=== PATIENT | female | born 1930 | race Caucasian/White ===

== ENCOUNTER → 2016-06-01 | Day surgery (SDC) | payer OTHER ==
[2016-05-29 15:11] VITALS: Ht 154.9 cm; Wt 52.3 kg
[~2016-06-01] VITALS: Ht 154.9 cm; Wt 52.3 kg
[~2016-06-01] MED LIST: ACET325T96 PO; ALBUAER2 INH; ASPI-461 PO; ATRINS INH; ATRINS NEB; ATV5 PO; BNC/40 PO; CARB0.25 OPB; CLC100 PO; CRDSR60 PO; DILT-113 PO; DILT120C68 PO; DILT360C23 PO; DLCSR180 PO; ERGO1CAP35 PO; ERGO1CAP41 PO; FERR325T PO; FURO-85 PO; HYDR12.55 PO; IPRA1AER2 INH; LABETALOL HCL IV 5 MG/ML 20ML ONE; LEVO75TA PO; LEVO75TA5 PO; LIDOCAINE HCL 2% 2 ML VIAL (20MG/ML) ONE; MAGNTAB4 PO; MRLP17X PO; MULT-506 PO; NTRSLP4 SL; OXGN; POTA10CA28 PO; PRD20 PO; PRD5 PO; PRED-301 PO; PRED10TA PO; PROPOFOL IV EMULSION 10 MG/ML 20 ML VIAL IV ONE; PRT40 PO; SENNTAB23 PO; SLWMEC PO; SODIUM CHLORIDE 0.9% 500ML 500 ML IV ONE; SPRIN INH; SPRIN/30 INH; SYMIN/8045 INH; SYN50 PO; TRAV0.00 OPB; VNTHFA/IN INH; VTMD PO; XLTOPS OPB; XPNINS INH; XPNINS NEB; XRL15 PO
--- NOTE | 2016-06-01 10:40 | Endo History and Physical ---
History & Physical Date of Service: Jun 01, 2016. Chief Complaint: Diarrhea Referring Physician: Dr. 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 Past Medical History Asthma, Cancer, Hypertension, CVA/TIA Past Surgical History Hx Cardiac Surgery: No Hx Internal Defibrillator: No Hx Pacemaker: No Hx Abdominal Surgery: No Hx of Implantable Prosthesis: No Hx Post-Op Nausea and Vomiting: Yes Hx Cancer Surgery: Yes (MELANOMA REMOVAL X3) Hx Thoracic Surgery: No Hx Orthopedic: No Hx Urinary Tract Surgery: No Family History None Social History Smoking Status: Former Smoker Hx Substance Use: No Hx Alcohol Use: No Allergies Coded Allergies: Clonidine (Verified Allergy, Mild, SHORTNESS OF BREATH, 06/01/16) Iodinated Diagnostic Agents (Verified Allergy, Unknown, "IT JUST AFFECTS ME AND I CAN'T EXPLAIN IT", 06/01/16) Latex1 -Allergic Contact Dermititis (Verified Allergy, Unknown, RASH, 06/01) Penicillins (Verified Allergy, Unknown, UNKNOWN, 06/01/16) Sulfa Antibiotics (Verified Allergy, Unknown, "SWELLING IN MOUTH AND DRIED OUT", 01/03/16) Current Medications Reported Home Medications Medications Dose Route/Sig Max Daily Dose Days Date Category Dose Instructions Combivent Respimat (Ipratropium-Albuterol) 1 Aer Aer 1 Puffs INH QID 05/29/16 Reported Hydrochlorothiazide 12.5 Mg Tab 1 Tab PO HS 05/29/16 Reported Lasix (Furosemide) 20 Mg Tab 20 Mg PO DAILY PRN 05/29/16 Reported Micro-K Ext Rel (Potassium Chloride) 10 Meq Capcr 10 Meq PO DAILY PRN 05/29/16 Reported Oxygen Gas 3-4 Liters NA HS 01/03/16 Reported Refresh Optive Advanced (Carboxymethylcellulose-Glyceri) 1 [place] Mari[place] 1 Drop OPB HS 01/03/16 Reported Xarelto (Rivaroxaban) 15 Mg Tab 15 Mg PO QPM 01/03/16 Reported Symbicort 80/4.5 Inhaler (Budesonide/Formoterol Fumarate) 120 Puffs/ Aero 2 Puffs PO BID 01/03/16 Reported Ventolin Hfa (Albuterol) Aers 2 Puffs INH Q4-6H PRN 12/20/15 Reported Travatan Z (Travoprost) 0.004 % Bassam 1 Drops OPB HS 12/20/15 Reported Slow-Mag Tab (Magnesium Chloride) 64 Mg Tabcr 64 Mg PO QAM 12/20/15 Reported Multivitamin (Multivitamins) Tab 1 Tab PO QAM 12/20/15 Reported Vitamin D Cap (Ergocalciferol) 50,000 Interunit Cap 50,000 Inter.unit PO WK 12/20/15 Reported WEDNESDAYS Tiazac (Diltiazem HCl) 120 Mg Capcr 120 Mg PO LUNCH 12/20/15 Reported Synthroid (Levothyroxine Sodium) 75 Mcg Tab 75 Mcg PO QAM 01/26/15 Reported Benicar (Olmesartan Medoxomil) 40 Mg Tab 40 Mg PO QPM 05/27/12 Reported Vital Signs Weight (Kilograms): 52.27 Height (Feet): 5 Height (Inches): 1 Physical Exam General Appearance: WD/WN, no apparent distress Respiratory/Chest: Auscultation: breath sounds normal, no wheezing Abdomen: Bowel Sounds: normal Inspection & Palpation: soft, no tenderness, guarding & rebound Assessment and Plan Cleared for colonoscopy.
--- NOTE | 2016-06-01 11:47 | GI REPORT ---
Procedure Date: 06/01/2016 10:39 AM Procedure: Colonoscopy Indications: Chronic diarrhea Medicines: Propofol per Anesthesia Complications: No immediate complications. Estimated blood loss: None. Estimated Blood Loss: Estimated blood loss: none. Procedure: Pre-Anesthesia Assessment: - Prior to the procedure, a History and Physical was performed, and patient medications, allergies and sensitivities were reviewed. The patient's tolerance of previous anesthesia was reviewed. - ASA Grade Assessment: IV - A patient with severe systemic disease that is a constant threat to life. After I obtained informed consent, the scope was passed under direct vision. Throughout the procedure, the patient's blood pressure, pulse, and oxygen saturations were monitored continuously. The scope was introduced through the anus and advanced to the terminal ileum, with identification of the appendiceal orifice and IC valve. The colonoscopy was performed with ease. The patient tolerated the procedure well. The quality of the bowel preparation was excellent. The bowel preparation used was split dose MIralax. Findings: Multiple medium-mouthed diverticula were found in the sigmoid colon. Normal mucosa was found in the entire colon. Biopsies for histology were taken with a cold forceps from the entire colon for evaluation of microscopic colitis. Fluid aspiration was performed through the scope suction channel. The amount of fluid collected was 10 mL. Sample(s) were sent for bacterial cultures, Clostridium difficile and ova and parasites. The terminal ileum appeared normal. Impression: - Diverticulosis in the sigmoid colon. - Normal mucosa in the entire examined colon. Biopsied. Fluid aspiration performed. - The examined portion of the ileum was normal. Recommendation: - Await pathology results. - Discharge patient to home (with escort). Terence Browning M.D. Terence Browning MD 06/01/2016 11:46:05 AM This report has been signed electronically. Note Initiated On: 06/01/2016 10:39 AM
--- NOTE | 2016-06-01 11:53 | Discharge Instructions ---
Endoscopy Patient Instructions Date / Procedure(s) Performed Jun 01, 2016. Colonoscopy Allergy Information Coded Allergies: Clonidine (Verified Allergy, Mild, SHORTNESS OF BREATH, 06/01/16) Iodinated Diagnostic Agents (Verified Allergy, Unknown, "IT JUST AFFECTS ME AND I CAN'T EXPLAIN IT", 06/01/16) Latex1 -Allergic Contact Dermititis (Verified Allergy, Unknown, RASH, 06/01) Penicillins (Verified Allergy, Unknown, UNKNOWN, 06/01/16) Sulfa Antibiotics (Verified Allergy, Unknown, "SWELLING IN MOUTH AND DRIED OUT", 01/03/16) Discharge Date / Findings Jun 01, 2016. Diverticulosis. Random biopsies and cultures obtained Medication Instructions Stopped Medication(s): XARELTO LAST TAKEN 1 WEEK AGO 05/25/16 Restart Stopped Medication(s): Restart Xaralto and all medications. Provider Instructions Activity Restrictions - No exercising or heavy lifting for 24 hours. - Do not drink alcohol the day of the procedure. - Do not drive a car or operate machinery until the day after the procedure. - Do not make any important decisions or sign important papers in 24 hours after the procedure. Following Day: - Return to full activity which may include returning to work/school. Diet Start your diet with liquids and light foods (jello, soup, juice, toast). Then eat your usual diet if not nauseated. Treatment For Common After Affects For mild abdominal pain, bloating, or excessive gas: - Rest - Eat lightly - Lie on right side Follow-Up Information Follow-up with DR. TEE as scheduled Anesthesia Information What You Should Know You have had a procedure that required some medicine to reduce anxiety and discomfort. This treatment is called moderate sedation. After receiving the treatment, you may be sleepy, but you will be able to breathe on your own. The effects of the treatment may last for several hours. Follow these instructions along with Activity/Diet recommendations noted above: * Do NOT do anything where dizziness or clumsiness would be dangerous. * Rest quietly at home today, then you can be up and about tomorrow. * Have a responsible person stay with you the rest of today. * You may have had an I.V. today. If so, you may take the dressing off later today. Recommendations Call your doctor if: * Trouble breathing * Continuous vomiting for more than 24 hours * Temperature above 101 degrees * Severe abdominal pain or bloating * Pain not relieved by pain medicine ordered * There is increased drainage or redness from any incision * A large amount of rectal bleeding greater than 2-3 tablespoons. (If you had a polyp/s removed or have hemorrhoids, a small amount of blood - from the rectum is to be expected.) * You have any unanswered questions or concerns. IN THE EVENT OF A SERIOUS EMERGENCY, GO TO THE NEAREST EMERGENCY ROOM Your discharge instructions were prepared by provider Terence Browning. Patient Instructions Signature Page Anisa Lane Patient (or Guardian) Signature/Date: I have read and understand the instructions given to me by my caregivers. Caregiver/RN/Doctor Signature/Date: The above-named patient and/or guardian has received patient instructions on this date. + Original Patient Signature Page (only) stays with chart. Please make copy for patient.
[2016-06-01 12:34] VITALS: BP 167/86; PULSE 54; O2SAT 94
--- NOTE | 2016-06-01 13:39 | Anesthesiology Progress Note ---
Anesthesia Post Op Note Date & Time Jun 01, 2016 at 13:38 Vital Signs Pain Intensity: 0 Vital Signs Past 12 Hours Date Time Temp Pulse Resp B/P Pulse Ox O2 Delivery O2 Flow Rate FiO2 06/01/16 12:34 54 20 167/86 94 Room Air 06/01/16 12:34 54 20 167/86 64 Room Air 06/01/16 11:59 54 22 183/90 98 Room Air 06/01/16 11:44 59 20 196/74 96 Room Air 06/01/16 11:29 72 20 146/78 100 Nasal Cannula 2 06/01/16 10:48 36.2 67 22 143/57 95 Room Air 0 Notes Mental Status: alert / awake / arousable, participated in evaluation Pt Amnestic to Procedure: Yes Nausea / Vomiting: adequately controlled Pain: adequately controlled Airway Patency, RR, SpO2: stable & adequate BP & HR: stable & adequate Hydration State: stable & adequate Anesthetic Complications: no major complications apparent
[2016-06-03 00:13] LABS: CRYPTOSPORIDIUM AG TC 37213 NOT DETECTED (NOT DETECTED); O&P GIARDIA AG NOT DETECTED (NOT DETECTED)
== END | disposition home or self-care (01) ==
LOC: C.GI 10:13
PROVIDERS: ATTEND Internal Medicine Gastroenterology
DX: R19.7 Diarrhea, unspecified (principal); K57.30 Diverticulosis of large intestine without perforation or abscess without bleeding; J45.909 Unspecified asthma, uncomplicated; I10 Essential (primary) hypertension; Z86.73 Personal history of transient ischemic attack (TIA), and cerebral infarction without residual deficits; Z87.891 Personal history of nicotine dependence; Z98.890 Other specified postprocedural states; Z91.041 Radiographic dye allergy status; Z88.0 Allergy status to penicillin; Z88.2 Allergy status to sulfonamides

== ENCOUNTER → 2016-07-05 | Day surgery (SDC) | payer OTHER ==
[2016-07-04 11:06] VITALS: Ht 154.9 cm; Wt 52.3 kg
[~2016-07-05] VITALS: Ht 154.9 cm; Wt 52.3 kg
[~2016-07-05] MED LIST changes: -ALBUAER2 INH; -LABETALOL HCL IV 5 MG/ML 20ML ONE
--- NOTE | 2016-07-05 12:32 | Endo History and Physical ---
History & Physical Date of Service: Jul 05, 2016. Chief Complaint: abdominal pain Referring Physician: Dr. Gauthier History of Present Illness Abdominal pain and diarrhea Past Medical History Asthma, Cancer, Hypertension, CVA/TIA Past Surgical History Hx Cardiac Surgery: No Hx Internal Defibrillator: No Hx Pacemaker: No Hx Abdominal Surgery: No Hx of Implantable Prosthesis: No Hx Post-Op Nausea and Vomiting: Yes Hx Cancer Surgery: Yes (MELANOMA REMOVAL X3) Hx Thoracic Surgery: No Hx Orthopedic: No Hx Urinary Tract Surgery: No Family History None Social History Smoking Status: Former Smoker Hx Substance Use: No Hx Alcohol Use: No Allergies Coded Allergies: Clonidine (Verified Allergy, Mild, SHORTNESS OF BREATH, 07/04/16) Iodinated Diagnostic Agents (Verified Allergy, Unknown, "IT JUST AFFECTS ME AND I CAN'T EXPLAIN IT", 07/04/16) Latex1 -Allergic Contact Dermititis (Verified Allergy, Unknown, RASH, 07/04) Penicillins (Verified Allergy, Unknown, UNKNOWN, 07/04/16) Sulfa Antibiotics (Verified Allergy, Unknown, "SWELLING IN MOUTH AND DRIED OUT", 07/04/16) Current Medications Reported Home Medications Medications Dose Route/Sig Max Daily Dose Days Date Category Dose Instructions Combivent Respimat (Ipratropium-Albuterol) 1 Aer Aer 1 Puffs INH QID 05/29/16 Reported Lasix (Furosemide) 20 Mg Tab 20 Mg PO DAILY PRN 05/29/16 Reported Micro-K Ext Rel (Potassium Chloride) 10 Meq Capcr 10 Meq PO DAILY PRN 05/29/16 Reported Oxygen Gas 3-4 Liters NA HS 01/03/16 Reported Refresh Optive Advanced (Carboxymethylcellulose-Glyceri) 1 [place] Mari[place] 1 Drop OPB HS 01/03/16 Reported Xarelto (Rivaroxaban) 15 Mg Tab 15 Mg PO QPM 01/03/16 Reported Symbicort 80/4.5 Inhaler (Budesonide/Formoterol Fumarate) 120 Puffs/ Aero 2 Puffs PO BID 01/03/16 Reported Travatan Z (Travoprost) 0.004 % Bassam 1 Drops OPB HS 12/20/15 Reported Slow-Mag Tab (Magnesium Chloride) 64 Mg Tabcr 64 Mg PO QAM 12/20/15 Reported Multivitamin (Multivitamins) Tab 1 Tab PO QAM 12/20/15 Reported Vitamin D Cap (Ergocalciferol) 50,000 Interunit Cap 50,000 Inter.unit PO WK 12/20/15 Reported WEDNESDAYS Tiazac (Diltiazem HCl) 120 Mg Capcr 120 Mg PO LUNCH 12/20/15 Reported Synthroid (Levothyroxine Sodium) 75 Mcg Tab 75 Mcg PO QAM 01/26/15 Reported Benicar (Olmesartan Medoxomil) 40 Mg Tab 40 Mg PO QPM 05/27/12 Reported Vital Signs Weight (Kilograms): 52.27 Height (Feet): 5 Height (Inches): 1 Date Time Temp Pulse Resp B/P Pulse Ox O2 Delivery O2 Flow Rate FiO2 07/05/16 12:05 36.5 70 22 175/65 96 Room Air Physical Exam General Appearance: WD/WN, no apparent distress Respiratory/Chest: Auscultation: breath sounds normal, no rales/crackles Cardiovascular: Heart Auscultation: RRR, no murmurs Abdomen: Inspection & Palpation: soft, no tenderness, guarding & rebound Assessment and Plan EGD with duodenal biopsy today.
--- NOTE | 2016-07-05 12:56 | GI REPORT ---
Procedure Date: 07/05/2016 12:15 PM Procedure: Upper GI endoscopy Indications: Abdominal pain, Diarrhea Medicines: Monitored Anesthesia Care Complications: No immediate complications. Estimated blood loss: None. Estimated Blood Loss: Estimated blood loss: none. Procedure: Pre-Anesthesia Assessment: - Prior to the procedure, a History and Physical was performed, and patient medications, allergies and sensitivities were reviewed. The patient's tolerance of previous anesthesia was reviewed. - ASA Grade Assessment: III - A patient with severe systemic disease. After obtaining informed consent, the endoscope was passed under direct vision. Throughout the procedure, the patient's blood pressure, pulse, and oxygen saturations were monitored continuously. The scope was introduced through the mouth, and advanced to the third part of the duodenum. Small bowel enteroscopy was deemed necessary. The upper GI endoscopy was accomplished with ease. The patient tolerated the procedure well. Findings: The upper third of the esophagus, middle third of the esophagus and lower third of the esophagus were normal. The Z-line was regular. Biopsies were taken with a cold forceps for histology. Patchy minimal inflammation characterized by adherent blood and erythema was found in the entire examined stomach. Biopsies were taken with a cold forceps for Helicobacter pylori testing. The examined duodenum was normal. Biopsies for histology were taken with a cold forceps for evaluation of celiac disease. Verification of patient identification for the specimens was done by the physician and nurse using the patient's name, date and medical record number. Impression: - Normal upper third of esophagus, middle third of esophagus and lower third of esophagus. - Z-line regular. Biopsied. - Gastritis. Biopsied. - Normal examined duodenum. Biopsied. Recommendation: - Await pathology results. - Discharge patient to home (with escort). Terence Browning M.D. Terence Browning MD 07/05/2016 12:56:13 PM This report has been signed electronically. Note Initiated On: 07/05/2016 12:15 PM I attest to the content of the Intraoperative Record and orders documented therein, exceptions below
--- NOTE | 2016-07-05 12:59 | Discharge Instructions ---
Endoscopy Patient Instructions Date / Procedure(s) Performed Jul 05, 2016. EGD Allergy Information Coded Allergies: Clonidine (Verified Allergy, Mild, SHORTNESS OF BREATH, 07/04/16) Iodinated Diagnostic Agents (Verified Allergy, Unknown, "IT JUST AFFECTS ME AND I CAN'T EXPLAIN IT", 07/04/16) Latex1 -Allergic Contact Dermititis (Verified Allergy, Unknown, RASH, 07/04) Penicillins (Verified Allergy, Unknown, UNKNOWN, 07/04/16) Sulfa Antibiotics (Verified Allergy, Unknown, "SWELLING IN MOUTH AND DRIED OUT", 07/04/16) Discharge Date / Findings Jul 05, 2016. Gastritis Medication Instructions Stopped Medication(s): stopped Xarelto on Sunday Restart Stopped Medication(s): Restart all medications today. Provider Instructions Activity Restrictions - No exercising or heavy lifting for 24 hours. - Do not drink alcohol the day of the procedure. - Do not drive a car or operate machinery until the day after the procedure. - Do not make any important decisions or sign important papers in 24 hours after the procedure. Following Day: - Return to full activity which may include returning to work/school. Diet Start your diet with liquids and light foods (jello, soup, juice, toast). Then eat your usual diet if not nauseated. Treatment For Common After Affects For mild abdominal pain, bloating, or excessive gas: - Rest - Eat lightly - Lie on right side Follow-Up Information Follow-up with Dr. Gauthier as scheduled Await pathology results. Anesthesia Information What You Should Know You have had a procedure that required some medicine to reduce anxiety and discomfort. This treatment is called moderate sedation. After receiving the treatment, you may be sleepy, but you will be able to breathe on your own. The effects of the treatment may last for several hours. Follow these instructions along with Activity/Diet recommendations noted above: * Do NOT do anything where dizziness or clumsiness would be dangerous. * Rest quietly at home today, then you can be up and about tomorrow. * Have a responsible person stay with you the rest of today. * You may have had an I.V. today. If so, you may take the dressing off later today. Recommendations Call your doctor if: * Trouble breathing * Continuous vomiting for more than 24 hours * Temperature above 101 degrees * Severe abdominal pain or bloating * Pain not relieved by pain medicine ordered * There is increased drainage or redness from any incision * A large amount of rectal bleeding greater than 2-3 tablespoons. (If you had a polyp/s removed or have hemorrhoids, a small amount of blood - from the rectum is to be expected.) * You have any unanswered questions or concerns. IN THE EVENT OF A SERIOUS EMERGENCY, GO TO THE NEAREST EMERGENCY ROOM Your discharge instructions were prepared by provider Terence Browning. Patient Instructions Signature Page Anisa Lane Patient (or Guardian) Signature/Date: I have read and understand the instructions given to me by my caregivers. Caregiver/RN/Doctor Signature/Date: The above-named patient and/or guardian has received patient instructions on this date. + Original Patient Signature Page (only) stays with chart. Please make copy for patient.
[2016-07-05 13:28] VITALS: BP 163/74; PULSE 76; O2SAT 94
--- NOTE | 2016-07-05 13:58 | Anesthesiology Progress Note ---
Anesthesia Post Op Note Date & Time Jul 05, 2016 at 13:57 Vital Signs Pain Intensity: 0 Vital Signs Past 12 Hours Date Time Temp Pulse Resp B/P Pulse Ox O2 Delivery O2 Flow Rate FiO2 07/05/16 13:28 76 20 163/74 94 Room Air 07/05/16 13:13 74 20 174/69 94 Room Air 07/05/16 12:58 75 20 166/51 95 Room Air 07/05/16 12:05 36.5 70 22 175/65 96 Room Air Notes Mental Status: alert / awake / arousable, participated in evaluation Pt Amnestic to Procedure: Yes Nausea / Vomiting: adequately controlled Pain: adequately controlled Airway Patency, RR, SpO2: stable & adequate BP & HR: stable & adequate Hydration State: stable & adequate Anesthetic Complications: no major complications apparent
== END | disposition home or self-care (01) ==
LOC: C.GI 11:36
PROVIDERS: ATTEND Internal Medicine Gastroenterology
DX: R19.7 Diarrhea, unspecified (principal); K29.70 Gastritis, unspecified, without bleeding; K29.80 Duodenitis without bleeding; K20.9 Esophagitis, unspecified; I10 Essential (primary) hypertension; J45.909 Unspecified asthma, uncomplicated; Z86.73 Personal history of transient ischemic attack (TIA), and cerebral infarction without residual deficits; Z88.0 Allergy status to penicillin; Z88.2 Allergy status to sulfonamides; Z91.041 Radiographic dye allergy status

== ENCOUNTER 2016-09-07 14:28 | Inpatient (IN) | payer OTHER ==
[~2016-09-07] VITALS: Ht 154.9 cm; Wt 53.2 kg
[~2016-09-07 14:28] MED LIST changes: -ACET325T96 PO; -ALPR0.25 PO; -APIX1TAB PO; -ASPI-461 PO; -ATRINS INH; -ATRINS NEB; -ATV5 PO; -CLC100 PO; -CRDSR60 PO; -DILT-113 PO; -DILT360C23 PO; -DLCSR180 PO; -DXY100 PO; -ERGO500011 PO; -FERR1TAB62 PO; -FLUT1INH PO; -FRS/40 PO; -GFNSR600 PO; -HYDR12.55 PO; -LEVO1TAB35 PO; -LEVO75TA5 PO; -LNX125 PO; -LPR25 PO; -MCRK20 PO; -MRLP17X PO; -MULT1CAP16 PO; -NTRSLP4 SL; -POTA10PO PO; -PRD20 PO; -PRD5 PO; -PRED-301 PO; -PRED10TA PO; -PRED20TA PO; -PRT40 PO; -SENNTAB23 PO; -SLWMEC PO; -SPRIN INH; -SPRIN/30 INH; -SUCR1TAB29 PO; -SYMIN/8045 INH; -SYN50 PO; -TRAV0.00 OP; -VNTHFA/IN INH; -VTMD PO; -XLTOPS OPB; -XPNINS INH; -XPNINS NEB; -XRL15 PO
[2016-09-07] MEDS ORDERED: ONDANSETRON INJ 2 MG/ML 2 ML VIAL IV PRN (15:15)
[2016-09-07] MEDS ORDERED: ACETAMINOPHEN 325 MG TAB PO PRN (15:15)
[2016-09-07] MEDS ORDERED: LEVOFLOXACIN / D5W 750 MG in PREMIXED IN D5W 150 ML IV SCH (15:30)
[2016-09-07] MEDS ORDERED: LEVALBUTEROL/IPRATROPIUM NEB INH PRN (15:30)
[2016-09-07 15:50] VITALS: BP 146/94; PULSE 120; TEMP 36.6; O2SAT 90
[2016-09-07 16:00] VITALS: O2SAT 95
[2016-09-07 16:07] VITALS: Ht 154.9 cm; Wt 53.2 kg
[2016-09-07] MEDS ORDERED: IPRATROPIUM BROMIDE NEB SOLN 0.02% 2.5 ML VIAL INH PRN (16:45)
[2016-09-07] MEDS ORDERED: LEVOFLOXACIN / D5W 750 MG in PREMIXED IN D5W 150 ML IV ONE (17:00)
[2016-09-07 17:12] VITALS: O2SAT 95
[2016-09-07] MEDS ORDERED: LEVOFLOXACIN 750 MG TAB PO ONE (18:30)
[2016-09-07] MEDS ORDERED: DILTIAZEM HCL 120 MG ER CAP PO ONE (18:30)
[2016-09-07] MEDS ORDERED: DILTIAZEM HCL 60 MG TAB PO ONE (18:30)
[2016-09-07 18:40] VITALS: PULSE 125; O2SAT 99
[2016-09-07] MEDS: LEVALBUTEROL 0.63MG/3 ML NEB INH PRN (18:40)
[2016-09-07 19:05] LABS: BASO % 0.3 %; BASO ABS # 0.02 K/uL (0-0.2); COMPLETE YES; EOS % 1.3 %; IG% 0.1 %; LYMPH % 7.6 %; LYMPH ABS # 0.59 K/uL (1.2-3.4); MEAN CELL VOLUME 90.9 fL (80-100); MEAN CORPUSCULAR HEMOGLOBIN 31.6 pg (25-34); MEAN CORPUSCULAR HGB CONC 34.7 g/dl (32-36); MONO % 4.3 %; NEUT % 86.4 %; PLATELET COUNT 233 K/uL (130-400); RED BLOOD COUNT 3.96 M/uL (4.2-5.4); WHITE BLOOD COUNT 7.72 K/uL (4.8-10.8)
[2016-09-07 19:12] LABS: INR 1.1 (0.9-1.1); PARTIAL THROMBOPLASTIN RATIO 1.3
[2016-09-07 19:25] LABS: BUN/CREATININE RATIO 15.7 (10-20); CALCIUM 8.9 mg/dl (8.5-10.1); CREATININE 0.73 mg/dl (0.60-1.20); POTASSIUM 3.9 mmol/L (3.5-5.1)
[2016-09-07 19:27] LABS: ALB/GLOB RATIO 1.2 (0.9-2)
[2016-09-07 20:00] VITALS: O2SAT 94
[2016-09-07 20:27] VITALS: BP 145/84; PULSE 99; TEMP 36.8; O2SAT 95
--- NOTE | 2016-09-07 20:34 | History and Physical ---
History & Physical Date & Time of Service: Sep 07, 2016 at 20:24 Chief Complaint: Copd Exacerbation, Pneumonia Primary Care Physician: RV. Trevizo MD History of Present Illness Source: patient, clinic records 86 yo female with history of COPD and atrial fibrillation, more recently dealing with RVR and her Cardizem dose was increased to 120mg daily. Presented to Dr. Rucker's office today with complaints of increased shortness of breath. Her HR was in the 120-130's and a CXR showed a left lower lobe infiltrate. She was advised to come in for direct admission. Even though she had evidence of infiltrate, she did not have any fever/chills. She did admit to some coughing that is chronic, occasional sputum production. Appetite intact. No wheezing that she has noticed. She kept asking why she had to stay in the hospital, wanted to go home. Explained several times that her HR was in the 130's and needed her medications adjusted by cardiology. Also, she was requiring oxygen and normally not on oxygen. Past Medical/Surgical History Medical Problems: (1) Asthma Status: Chronic (2) Back pain Status: Resolved (3) Back pain Status: Resolved (4) Benign hypertension Status: Chronic (5) Bronchitis Status: Resolved (6) Cataract Status: Chronic (7) Dehydration Status: Resolved (8) Disorder of gallbladder Status: Chronic (9) Fall Status: Resolved (10) Humeral head fracture Status: Resolved (11) Kidney disease Status: Chronic (12) melanoma Status: Resolved (13) Neck pain Status: Resolved (14) Pneumonia Status: Resolved (15) Recurrent falls Status: Resolved (16) Right humeral fracture Status: Resolved Family History Heart disease Hypertension Social History Smoking Status: Former Smoker Drug Use: none Marital Status: Housing status: lives alone Occupational Status: retired Immunizations History of Influenza Vaccine: No History of Tetanus Vaccine?: utd History of Hepatitis B Vaccine: No Allergies Coded Allergies: Clonidine (Verified Allergy, Mild, SHORTNESS OF BREATH, 07/04/16) Iodinated Diagnostic Agents (Verified Allergy, Unknown, "IT JUST AFFECTS ME AND I CAN'T EXPLAIN IT", 07/04/16) Latex1 -Allergic Contact Dermititis (Verified Allergy, Unknown, RASH, 07/04) Penicillins (Verified Allergy, Unknown, UNKNOWN, 07/04/16) Sulfa Antibiotics (Verified Allergy, Unknown, "SWELLING IN MOUTH AND DRIED OUT", 07/04/16) Home Medications Scheduled Budesonide/Formoterol Fumarate (Symbicort 80/4.5 Inhaler), 2 PUFFS PO BID Carboxymethylcellulose-Glyceri (Refresh Optive Advanced), 1 DROP OPB HS Diltiazem Hcl Ext Rel (Tiazac), 120 MG PO LUNCH Ergocalciferol (Vitamin D Cap), 50,000 INTER.UNIT PO WK Hydrochlorothiazide (Hydrochlorothiazide), 1 TAB PO HS Ipratropium-Albuterol (Combivent Respimat), 1 PUFFS INH QID Levothyroxine Sodium (Synthroid), 75 MCG PO QAM Magnesium Chloride (Slow-Mag Tab), 64 MG PO QAM Multivitamin (Multivitamin), 1 TAB PO QAM Olmesartan Medoxomil (Benicar), 40 MG PO QPM Oxygen (Oxygen), 3-4 LITERS NA HS Rivaroxaban (Xarelto), 15 MG PO QPM Travoprost (Travatan Z), 1 DROPS OPB HS Scheduled PRN Furosemide (Lasix), 20 MG PO DAILY PRN for WEIGHT GAIN Potassium Chloride (Micro-K Ext Rel), 10 MEQ PO DAILY PRN for WITH LASIX Review of Systems Constitutional: No chills, No fatigue, No fever, No problem reported, No sweats , No weakness, No weight loss Eyes: No diplopia, No discharge, No eye pain, No problem reported, No redness, No worsening of vision ENT: No dental problems, No hearing loss, No nasal symptoms, No problem reported, No sore throat, No tinnitus, No trouble swallowing, No unusual epistaxis Respiratory: + cough, + dyspnea on exertion, + sputum, + wheezing, No dyspnea at rest, No hemoptysis, No shortness of breath Cardiovascular: + palpitations, No PND, No chest pain, No claudication, No edema, No orthopnea Abdomen: No GI bleeding, No constipation, No diarrhea, No nausea, No pain, No problem reported, No vomiting Musculoskeletal: No calf pain, No joint pain, No muscle pain, No problem reported, No swelling Genitourinary - Female: No dysuria, No urinary frequency, No urinary incontinence, No urinary urgency Neurologic: + weakness, No balance problems, No memory loss, No numbness/ tingling, No paralysis, No problem reported, No vertigo Psychiatric: No anhedonism, No anxiety, No depression symptoms, No insomnia, No problem reported, No substance abuse Endocrine: No excessive thirst, No excessive urination, No fatigue, No problem reported Hematologic / Lymphatic: No abnormal bleeding/bruising, No clotting problems, No night sweats, No problem reported, No swollen lymph nodes Integumentary: No bleeding, No color change, No itch, No new/changing skin lesions, No problem reported, No rash Allergic / Immunologic: No environmental allergies, No food allergies, No frequent infections, No hives, No pet sensitivities, No poor healing, No problem reported, No prolonged convalescence, No seasonal allergies Physical Exam Vital Signs Date Time Temp Pulse Resp B/P Pulse Ox O2 Delivery O2 Flow Rate FiO2 09/07/16 18:40 125 24 99 Diffusion Mask 10.0 09/07/16 17:12 95 Nasal Cannula 4.0 09/07/16 16:00 95 Nasal Cannula 4.0 09/07/16 15:50 36.6 120 20 146/94 90 Room Air General Appearance: no apparent distress, + thin Head: normocephalic, atraumatic Eyes: normal inspection, PERRL, EOMI, sclerae normal ENT: normal ENT inspection, hearing grossly normal, pharynx normal Neck: supple, no adenopathy, no JVD, trachea midline Respiratory/Chest: chest non-tender, no respiratory distress, no accessory muscle use, + crackles (left base), + rhonchi (no wheezing) Cardiovascular: no edema, no gallop, no JVD, normal peripheral pulses, + tachycardia, + systolic murmur, + irregularly irregular Abdomen/GI: normal bowel sounds, non tender, soft, no organomegaly Back: normal inspection, no CVA tenderness, no muscle spasm, normal range of motion Extremities/Musculoskelatal: normal inspection, no calf tenderness, normal capillary refill, no pedal edema, normal range of motion 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, no motor/sensory deficits, alert, normal mood/affect, normal reflexes, oriented x 3 Skin: normal color, warm/dry, no rash Lymphatic: no adenopathy Diagnostics Laboratory Results Results Past 24 Hours Test 09/07/16 18:55 Range/Units White Blood Count 7.72 4.8-10.8 K/uL Red Blood Count 3.96 4.2-5.4 M/uL Hemoglobin 12.5 12.0-16.0 g/dL Hematocrit 36.0 37-47 % Mean Corpuscular Volume 90.9 80-100 fL Mean Corpuscular Hemoglobin 31.6 25-34 pg Mean Corpuscular Hemoglobin Concent 34.7 32-36 g/dl Platelet Count 233 130-400 K/uL Mean Platelet Volume 10.0 7.4-10.4 fL Neutrophils (%) (Auto) 86.4 % Lymphocytes (%) (Auto) 7.6 % Monocytes (%) (Auto) 4.3 % Eosinophils (%) (Auto) 1.3 % Basophils (%) (Auto) 0.3 % Neutrophils # (Auto) 6.67 1.4-6.5 K/uL Lymphocytes # (Auto) 0.59 1.2-3.4 K/uL Monocytes # (Auto) 0.33 0.11-0.59 K/uL Eosinophils # (Auto) 0.10 0-0.5 K/uL Basophils # (Auto) 0.02 0-0.2 K/uL RDW Standard Deviation 41.8 36.4-46.3 fL RDW Coefficient of Variation 12.5 11.5-14.5 % Immature Granulocyte % (Auto) 0.1 % Immature Granulocyte # (Auto) 0.01 0.00-0.02 K/uL Prothrombin Time 12.0 9.0-12.0 SECONDS Prothromb Time International Ratio 1.1 0.9-1.1 Activated Partial Thromboplast Time 32.9 21.0-31.0 SECONDS Partial Thromboplastin Ratio 1.3 Sodium Level 136 136-145 mmol/L Potassium Level 3.9 3.5-5.1 mmol/L Chloride Level 101 98-107 mmol/L Carbon Dioxide Level 27 21-32 mmol/L Anion Gap 8.0 3-11 mmol/L Blood Urea Nitrogen 11 7-18 mg/dl Creatinine 0.73 0.60-1.20 mg/dl Est Creatinine Clear Calc Drug Dose 42.5 ml/min Estimated GFR () 87.0 Estimated GFR (Non- 75.1 BUN/Creatinine Ratio 15.7 10-20 Random Glucose 136 70-99 mg/dl Calcium Level 8.9 8.5-10.1 mg/dl Total Bilirubin 0.9 0.2-1 mg/dl Direct Bilirubin 0.3 0-0.2 mg/dl Aspartate Amino Transf (AST/SGOT) 18 15-37 U/L Alanine Aminotransferase (ALT/SGPT) 26 12-78 U/L Alkaline Phosphatase 66 45-117 U/L Total Protein 7.3 6.4-8.2 gm/dl Albumin 4.0 3.4-5.0 gm/dl Globulin 3.3 2.5-4.0 gm/dl Albumin/Globulin Ratio 1.2 0.9-2 Diagnostic Radiology CHEST 2 VIEWS ROUTINE CLINICAL HISTORY: J44.9 Chronic obstructive pulmonary disease COPD COMPARISON STUDY: 01/03/2016 FINDINGS: Poorly defined parenchymal infiltrate left base. Emphysematous change. Pulmonary vascular congestion. No evidence for cardiac enlargement. IMPRESSION: Parenchymal infiltrate left base. Emphysematous change. Pulmonary vascular congestion. EKG afib with RVR Impression Assessment and Plan 86 yo female with known COPD, now with mild COPD exacerbation, pneumonia, atrial fibrillation with RVR and hypoxia - Acute hypoxic respiratory failure: combination of pneumonia and COPD, look for improvement with therapy - COPD exacerbation: Prednisone, Levalbuterol nebulizers, Levaquin - Left lower lobe infiltrate, possible pneumonia: Levaquin, afebrile, WBC normal , would only treat 5 days - Atrial fibrillation with RVR: continue Diltiazem 120mg but may need to increase to 180mg consult cardiology to see tomorrow, anticoagulated on Xarelto - Severe aortic stenosis: consult cardiology, she say she went and had a second opinion, was told she had a year to live Level of Care Telemetry Advanced Directives Existing Living Will: No Existing Power of [employer] Worker: No Resuscitation Status FULL RESUSCITATION VTE Prophylaxis VTE Risk Assessment Done? Y/N: Yes Risk Level: High Given or contraindicated: Other Anticoagulation (Xarelto)
[2016-09-07] MEDS: OLMESARTAN MEDOXOMIL 40 MG TAB PO SCH (20:41)
[2016-09-07] MEDS: RIVAROXABAN TAB 15 MG TAB PO SCH (20:45)
[2016-09-07] MEDS: BUDESONIDE/FORMOTEROL FUMARATE 80/4.5 60 PUFFS/INHALER INH SCH (20:50)
[2016-09-08] VITALS (10 sets, daily range): BP systolic 118–148; BP diastolic 47–94; PULSE 72–92; TEMP 36.3–36.7; O2SAT 95–99
[2016-09-08] MEDS: DILTIAZEM HCL 30 MG TAB PO SCH ×4 (00:31→22:10)
--- NOTE | 2016-09-08 03:55 | CARDIOLOGY CONSULTATION ---
DATE OF CONSULTATION: 09/07/2016 PRIMARY PHYSICIAN: Joey Gauthier MD ATTENDING AND REFERRING PHYSICIAN: Giovanni Mckinnon DO CONSULTATION: Ramu Mack MD HISTORY OF PRESENT ILLNESS: The patient is an 86-year-old white female with history of severe aortic stenosis, persistent atrial fibrillation, hypertension, COPD, and hyperthyroidism. She is followed in cardiology clinic by Dr. Oliverio Mason. She is followed in pulmonary clinic by Dr. Lee Rucker. The patient was recently seen in cardiology clinic on 09/04/2016 with complaints of increased dyspnea on exertion and dyspnea at rest for a few days. An electrocardiogram performed at time of that office visit revealed a ventricular rate of 128 beats per minute with atrial fibrillation. She is normally on diltiazem extended release 120 mg daily. The dose was increased to 120 mg b.i.d. Despite the dose increase she persists with dyspnea. She was seen in pulmonary clinic today by Dr. Rucker who diagnosed her with left lower lobe pneumonia. Chest x-ray performed today does reveal parenchymal infiltrate in the left base. No evidence of heart failure on the chest x-ray. There are changes consistent with emphysema. Because of her pneumonia and atrial fibrillation with rapid ventricular response she has been admitted to the telemetry unit. The patient states that her last dose of diltiazem was last evening. She has received no diltiazem thus far today. She has refused placement of an intravenous catheter thus far on this admission. She denies any palpitations. Chronic postural lightheadedness when she alia over. No syncope. She denies any anginal type chest discomfort. She does complain of an aching left parasternal chest pain. This can be precipitated by palpation of her chest. Her appetite has been decreased over the past few days. No fevers or chills. She does have a cough. She states it is nonproductive. She denies any wheezing. Because of her dyspnea over the past few days she has been using her inhalers approximately every 3 hours. She has had no definite orthopnea or PND. No peripheral edema. She is on chronic anticoagulation with Xarelto. She denies any symptoms of bleeding. Her appetite has been decreased over the past few days. No abdominal pain or nausea. No urinary complaints. No cerebrovascular or peripheral vascular complaints suggestive of a thromboembolic event. No symptoms suggestive of CVA or TIA. She complains of severe cramps in her calves and feet on a nightly basis. She states this has been occurring over the past several months. She attributes it to medications that she received on a 08/01/2015 admission. At that time she was admitted for increased dyspnea on exertion, felt to be secondary to exacerbation of her COPD as well as her severe aortic stenosis. She was also admitted in December 2015 at [facility] for increased dyspnea. Her discharge diagnosis was acute on chronic diastolic heart failure in the presence of severe aortic stenosis and COPD. PAST MEDICAL HISTORY: 1. Severe aortic stenosis. Echocardiogram on 08/02/2015 with moderate left ventricular hypertrophy, hyperdynamic LV systolic function with ejection fraction greater than 70%, severe aortic stenosis with calculated aortic valve area of 0.5 square cm, mild aortic regurgitation, mild mitral regurgitation, left ventricular diastolic dysfunction grade 1. 2. COPD. 3. Hypertension. 4. History of To's esophagus. 5. Persistent atrial fibrillation. 6. History of cerebral ischemia. 7. History of diastolic congestive heart failure. 8. History of right kidney mass. 9. Dyslipidemia. 10. Hearing loss. 11. History of malignant melanoma of skin. 12. Hyperthyroidism. 13. History of impaired fasting glucose. 14. History of laryngopharyngeal reflux. 15. History of hematuria. 16. Chronic kidney disease. 17. History of vitamin D deficiency. 18. History of sleep apnea. 19. Glaucoma. 20. Bilateral hearing loss which is severe. 21. Chronic rhinitis. 22. Cervical spine disc disease. She uses supplemental oxygen at night via nasal cannula. SOCIAL HISTORY: The patient lives alone. She is . She is a former cigarette smoker. She stopped smoking cigarettes many years ago. She does not drink alcohol. ALLERGIES AND ADVERSE DRUG REACTIONS: CLONIDINE, IODINATED CONTRAST AGENTS, LATEX, PENICILLINS, SULFA ANTIBIOTICS. FAMILY HISTORY: History of myocardial infarction in her father. History of stroke in a brother. PAST SURGICAL HISTORY: 1. Status post cataract surgery. 2. History of removal of skin cancer. REVIEW OF SYSTEMS: As above. A 10-point review of systems performed. Other than reported above negative. MEDICATIONS: The patient was ordered to receive diltiazem extended release 120 mg tonight. She was then ordered to receive diltiazem ER 120 mg daily. Other medications include levofloxacin 750 mg p.o. daily, magnesium chloride 64 mg daily, prednisone 40 mg daily, levothyroxine 75 mcg daily, Symbicort 2 puffs b.i.d., olmesartan 40 mg at bedtime, Xarelto 50 mg at bedtime, p.r.n. Atrovent and Xopenex nebulizers, p.r.n. acetaminophen and p.r.n. Zofran. PHYSICAL EXAMINATION: GENERAL: The patient is sitting up in her bed. Mild respiratory distress. She does have tachypnea. HEAD: Normal. EYES: Pupils are equal and round. Anicteric. Conjunctivae normal. No xanthelasma. NECK: No jugular venous distention. Carotids with decreased intensity bilaterally. Delayed upstroke. LUNGS: Diminished breath sounds in all lung luis. No rales or wheezes. HEART: PMI of increased intensity. Laterally displaced. Irregularly irregular rhythm. Increased rate. Absent aortic valvular closing sound. A 3/6 crescendo-decrescendo murmur second right intercostal space. No diastolic murmur or rub. No S3 heard. ABDOMEN: Soft. Nontender. No palpable masses or organomegaly. No bruits. EXTREMITIES: No pretibial edema. No cyanosis or clubbing. NEUROLOGIC: Alert and oriented x3. Motor grossly intact. PSYCHIATRIC: Affect is normal. PULSES: Distal pulses in all extremities palpable. DATA: Electrocardiogram performed today with atrial fibrillation with rapid ventricular response. Rate 113 beats per minute. Nonspecific ST and T wave abnormalities. Borderline voltage for left ventricular hypertrophy. Electrocardiogram reviewed by me. Chest x-ray reviewed by me with infiltrate at left base. At the time of this dictation, her admission labs are pending. This includes a CBC, comprehensive metabolic profile, and PT and INR. ADDENDUM TO EXAM: Oral temperature this afternoon 36.6, pulse recorded as high as 136 beats per minute. Blood pressure 146/94, pulse oximetry room air 98%. ASSESSMENT: 1. Severe aortic stenosis. The patient has previously declined referral for aortic valve replacement. This includes both surgical replacement or transaortic valve replacement (TAVR). 2. Prior echocardiography with hyperdynamic left ventricular systolic function. Diastolic dysfunction of the left ventricle. 3. Persistent atrial fibrillation. Rapid ventricular response. Increased ventricular response secondary to her pneumonia and exacerbation of chronic obstructive pulmonary disease. 4. Hypoxemia. 5. No evidence on exam of congestive heart failure. No evidence on chest x-ray of congestive heart failure. 6. Hyperthyroidism. 7. History of chronic kidney disease. Today's labs pending. 8. Chronic cramps at night in legs. She does have a history of sleep apnea and nocturnal hypoxemia. She may have leg movement disorder associated with her sleep abnormalities. She feels that the cramps in her legs improved with taking potassium and magnesium supplements. Cannot exclude a component of peripheral neuropathy in her legs. She states she has paresthesias of both feet. She also can have shooting pains up both legs from her feet. 9. Hypertension. 10. No anginal complaints. 11. No syncope. 12. Chronic postural lightheadedness. 13. No bleeding complaints on anticoagulation therapy. 14. No symptoms suggestive of a thromboembolic event. RECOMMENDATIONS: 1. Change diltiazem to immediate release form. A 120 mg immediate release now. Then 90 mg immediate release q.8 hours. 2. If she does agree to an IV she could then be switched to intravenous diltiazem. This would be if the initial oral diltiazem does not help control her ventricular response. 3. Continue anticoagulation therapy. 4. Treatment of her pneumonia and COPD exacerbation. 5. Await labs. 6. Conservative medical management of her aortic stenosis. She declines valve replacement procedures. Her increased dyspnea over the past several days is likely secondary to a combination of her severe aortic stenosis, increased ventricular response to the atrial fibrillation ( acute on chronic diastolic heart failure ), pneumonia , and exacerbation of her COPD. Slowing of her ventricular response with diltiazem may help improve diastolic function. The negative inotropic chronotropic effects of the diltiazem may also help improve relaxation of her left ventricle. Thank you for asking us to see this patient in cardiology consultation. JOSELINE
[2016-09-08] MEDS: LEVOTHYROXINE 75 MCG TAB PO SCH (06:29)
[2016-09-08] MEDS: LEVALBUTEROL 0.63MG/3 ML NEB INH PRN (07:41)
[2016-09-08 07:46] LABS: COMPLETE YES; HEMATOCRIT 32.5 % (37-47); IG% 0.2 %; LYMPH % 11.6 %; LYMPH ABS # 0.51 K/uL (1.2-3.4); MEAN CELL VOLUME 90.8 fL (80-100); MEAN CORPUSCULAR HGB CONC 34.2 g/dl (32-36); MEAN PLATELET VOLUME 10.1 fL (7.4-10.4); MONO % 12.5 %; NEUT % 75.7 %; PLATELET COUNT 209 K/uL (130-400); RED BLOOD COUNT 3.58 M/uL (4.2-5.4); WHITE BLOOD COUNT 4.41 K/uL (4.8-10.8)
[2016-09-08] MEDS ORDERED: NURSING VERBAL MED ORDER ONE (08:00)
[2016-09-08 08:24] LABS: BUN/CREATININE RATIO 23.9 (10-20); CREATININE 0.56 mg/dl (0.60-1.20); MAGNESIUM 1.8 mg/dl (1.8-2.4)
[2016-09-08] MEDS ORDERED: MoRPHine SULFATE 2 MG/ML CARP IV PRN ×2 (08:30)
[2016-09-08 08:36] LABS: CALCIUM 8.5 mg/dl (8.5-10.1)
[2016-09-08] MEDS ORDERED: DILTIAZEM HCL 120 MG EXT REL CAP PO SCH (09:00)
[2016-09-08] MEDS: BUDESONIDE/FORMOTEROL FUMARATE 80/4.5 60 PUFFS/INHALER INH SCH ×2 (09:22→22:08)
[2016-09-08] MEDS: MAGNESIUM CHLORIDE 64MG DELAYED REL TAB PO SCH (09:23)
--- NOTE | 2016-09-08 09:25 | PULMONARY CONSULTATION ---
DATE OF CONSULTATION: 09/08/2016 TIME: 8:30 a.m. REPORT OF CONSULTATION: The patient was seen in room 287, bed 2. HISTORY OF PRESENT ILLNESS: She is an 86-year-old female who has a longstanding history of severe COPD. She had pulmonary function testing done within the past 9 months that showed an FEV1/FVC ratio of only 50%. She did not show significant improvement following bronchodilators. She has been having significant shortness of breath for about 1-2 weeks. She thought she was having allergies. She took an [id number] antihistamine, Xyzal. After taking the second pill, she noticed she was more short of breath and she thought it was from the medicine. I think it is quite unlikely that the Xyzal caused her problems. She began utilizing her inhalers much more commonly. She does take Symbicort 80/4.5 two puffs b.i.d. She also takes Combivent Respimat. I believe the Combivent she was excessively utilizing, as often as every 2 hours because she was very short of breath. She saw a cardiology PA earlier this week. She was found to have atrial fibrillation with a rate of 130. She does have chronic AFib. They increased her diltiazem. The patient was not feeling better. She called my office and I spoke with her on the phone for about 35 minutes on 09/06/2016. We arranged for her to come in to the office yesterday. We did arrange for her to get a chest x-ray done. This showed a small left lower lobe infiltrate. She admits to having had some achiness or discomfort in the left posterolateral chest area for about a week. She is not coughing up any significant phlegm. She is coughing more than normal. The patient had a pulse oximetry on room air yesterday of 83% in the office. She improved nicely into the 90s with 2 liters. She has not had any sharp anterior chest pain or chest pain associated with exertion. After seeing her yesterday, I felt she likely needed to be admitted. The patient does have a lot of anxiety. I believe that contributes to her shortness of breath as well. Her valvular heart disease is known to be quite severe in the form of aortic stenosis with an BINA of 0.5. She sees Dr. Mason regarding this. The echo done approximately a year ago also showed grade 1 diastolic dysfunction as well as moderate to severe mitral annulus calcification and she had mild MR. The patient has been very frustrated that she feels so poorly. She denies heartburn or indigestion. She denies any bowel complaints. She has not had any rashes. She has not noticed any swelling. The remainder of the review of systems is essentially negative except as noted in the history of present illness. PAST PULMONARY HISTORY: In addition to the severe COPD, the patient had a sleep study in 2009 showing moderate sleep apnea with an apnea-hypopnea index of 24.5. She had a CPAP titration where she was titrated to a pressure of 12. She is not wearing CPAP and it is not known if she ever wore CPAP or not. The patient previously was a smoker. She smoked 1 pack per day for 20 years and she quit reportedly in 1969. The patient has only lived in the [facility] for about 11 years. She complains of many allergy symptoms including postnasal drip that she thinks all is related to living in this area. PAST MEDICAL HISTORY: 1. CVA in the past. 2. Fracture of the right humerus. 3. Concussion. 4. Skin cancer. 5. History of Eustachian tube dysfunction. PAST SURGICAL HISTORY: 1. Cataract surgery. 2. Cystoscopy. FAMILY HISTORY: Positive for coronary artery disease, cancer and stroke. SOCIAL HISTORY: Tobacco is as noted above. Alcohol use is denied. MEDICATIONS AN OUTPATIENT: 1. Benicar 40 mg daily. 2. Combivent Respimat 1 puff q.i.d. 3. Natural tears. 4. Furosemide 20 mg to be taken when she has gained 2 pounds more. 5. HCTZ 12.5 mg 1 daily. 6. Levothyroxine 75 mcg 1 daily. 7. Oxygen 3 liters at bedtime. 8. Potassium 10 mEq b.i.d. 9. Slow-Mag b.i.d. 10. Symbicort 80/4.5 two puffs b.i.d. 11. Travatan eyedrops 0.004%, one drop daily to each eye. 12. Ventolin HFA p.r.n. -- seldom uses. 13. Vitamin D once weekly, 50,000 units. 14. Xalatan 0.005%, one drop into each eye at bedtime. 15. Xarelto 15 mg 1 daily. ALLERGIES: LISTED ALLERGIES TO NUMEROUS MEDICINES INCLUDING ALDACTONE, AMLODIPINE, ATENOLOL, CLONIDINE, DIOVAN, CONTRAST DYE, LIDODERM PATCH, LOSARTAN, NIFEDIPINE, PENICILLIN, TERAZOSIN. PHYSICAL EXAMINATION: GENERAL: The patient is an 86-year-old female who looks younger than her chronologic age. She was cooperative, alert and oriented. She did not appear in any distress. She indicates she feels less short of breath than yesterday. VITAL SIGNS: Temperature is 36.6. There have been no documented fevers. HEENT: Eye exam showed evidence of implants bilaterally. Nasal passages were clear. Nasal cannula was in place. Mouth exam was unremarkable. NECK: Palpation of the neck revealed no lymph nodes. The patient's BMI is normal at 22.9. CHEST: Was of normal expansion. HEART: Heart rate was 100 per minute. The rhythm was irregularly irregular and compatible with atrial fibrillation. Systolic murmur grade 2-3/6 was heard in the aortic region. Respiratory rate 22 breaths per minute. LUNGS: The breath sounds were diffusely diminished. Mild rales were heard posteriorly bilaterally. Blood pressure this morning 134/62. Oxygen saturation was 98% on 6 liters. ABDOMEN: Soft. Bowel sounds were normal. There was no tenderness to palpation, masses or organomegaly. EXTREMITIES: Showed no cyanosis, clubbing or edema. LABORATORY DATA: White count today is 4.41. Hemoglobin 11.1. Platelets are 209,000. Hemoglobin yesterday was 12.5. Electrolytes show sodium 135, potassium 4.0, chloride 97, bicarb 28. BUN was 13 with a creatinine of 0.56. Blood sugar was 109. AST was 18. ALT was 26. Alkaline phosphatase 66. Total protein 7.3 with an albumin of 4 and a globulin of 3.3. IMPRESSION: 1. Left lower lobe pneumonia. 2. Chronic obstructive pulmonary disease -- severe. 3. Aortic stenosis -- severe. 4. Atrial fibrillation. 5. History of obstructive sleep apnea. COMMENTS AND RECOMMENDATIONS: The patient is on levofloxacin. I agree with this. She is ordered prednisone. The patient has refused it in the past but I am going to encourage her to take it to help her breathing. She is on neb treatments but only p.r.n. If her heart rates obtain better control, I would consider giving her some treatments on a regular basis, about 3 times per day while she is hospitalized to see if she feels this would be helping her more than the Combivent Respimat. We will follow the patient with you.
[2016-09-08] MEDS: LEVALBUTEROL 0.63MG/3 ML NEB INH SCH ×2 (13:30→21:19)
[2016-09-08] MEDS: IPRATROPIUM BROMIDE NEB SOLN 0.02% 2.5 ML VIAL INH SCH ×2 (13:31→21:19)
[2016-09-08] MEDS ORDERED: LEVALBUTEROL/IPRATROPIUM NEB INH SCH (14:00)
--- NOTE | 2016-09-08 14:10 | CARDIOLOGY PROGRESS NOTE ---
DATE: 09/08/2016 SUBJECTIVE: The patient was seen by me this morning in her telemetry unit room. She states that she feels better than yesterday in regards to her dyspnea. She denies any dyspnea, sitting in bed today. No orthopnea or PND overnight. She is not sure if her dyspnea on exertion has improved from yesterday as she has not gotten out of bed as yet today. No palpitations. No lightheadedness. Her left lower chest discomfort has resolved from yesterday. No abdominal pain. No leg pain. No cerebrovascular complaints suggestive of a thromboembolic event. No bleeding complaints. Mild nonproductive cough. CURRENT MEDICATIONS: Travoprost eyedrops 1 drop at bedtime, levofloxacin 750 mg daily, magnesium chloride 64 mg q.a.m., prednisone 40 mg daily, levothyroxine 75 mcg daily, diltiazem immediate release 90 mg t.i.d., Symbicort 2 puffs b.i.d., Benicar 40 mg daily, Xarelto 15 mg daily, Atrovent and Xopenex nebulizer q. 8 hours. ALLERGIES AND ADVERSE DRUG REACTIONS: CLONIDINE, IODINATED CONTRAST AGENTS, LATEX, PENICILLINS, SULFA ANTIBIOTICS. DATA: Monitor history reveals atrial fibrillation. Current ventricular rate in the 80s to low 90s. PHYSICAL EXAMINATION: VITAL SIGNS: This morning with oral temperature 36.6, pulse 86, blood pressure 134/62, pulse oximetry on 6 liters per minute nasal cannula oxygen 98%. NECK: No jugular venous distention. LUNGS: Normal respiratory effort. No rales or wheezes. Decreased breath sounds in all lung luis. HEART: Irregularly irregular. Absent aortic valvular closing sound. 3/6 systolic murmur second intercostal space. No diastolic murmur, S3, or rub. ABDOMEN: Soft. Nontender. No palpable masses or organomegaly. EXTREMITIES: No pretibial edema. LABORATORY DATA: Today with WBC 4.41, hemoglobin 11.1, hematocrit 32.5. Sodium 135, potassium 4.0, chloride 97, carbon dioxide 28, BUN 13, creatinine 0.56, random glucose 109. Magnesium 1.8. ASSESSMENT: 1. Chronic atrial fibrillation. Ventricular response improved from yesterday. This may reflect the diltiazem therapy as well as improvement in her pulmonary condition. 2. Improved dyspnea compared to yesterday. Likely reflects improvement in her pulmonary condition and pneumonia as well as improved ventricular rate control. Improved ventricular rate control with her atrial fibrillation would help improve her left ventricular diastolic function. 3. Severe underlying aortic stenosis. The patient has previously declined any interventional therapy for valve replacement. 4. No evidence of volume overload or pulmonary vascular congestion on exam. 5. Blood pressure under good control. RECOMMENDATIONS: 1. Continue current dose of diltiazem. At the time of discharge, can change her diltiazem to a long-acting form. 2. Continue Xarelto. 3. Continued management of her underlying pulmonary condition and pneumonia by pulmonology service and the hospitalist service. 4. No other new recommendations. MTDD
[2016-09-08] MEDS ORDERED: LEVOFLOXACIN CONSULT ACTIVE PRN (14:15)
[2016-09-08] MEDS: RIVAROXABAN TAB 15 MG TAB PO SCH (17:54)
[2016-09-08] MEDS: LEVOFLOXACIN 750 MG TAB PO SCH (17:54)
[2016-09-08] MEDS: TRAVOPROST Z 0.004% OPH SOLN 2.5 ML BTL OPB SCH (22:08)
[2016-09-08] MEDS: OLMESARTAN MEDOXOMIL 40 MG TAB PO SCH (22:09)
[2016-09-09] VITALS (9 sets, daily range): BP systolic 125–163; BP diastolic 63–82; PULSE 77–97; TEMP 35.8–36.8; O2SAT 95–98
--- NOTE | 2016-09-09 00:46 | Hospitalist Progress Note ---
Hospitalist Progress Note Date of Service Sep 09, 2016. Subjective Pt evaluation today including: conversation w/ patient Patient discussed her detailed medical history. I encouraged her to focus on what is her plan for the aortic valve, to fix it by TAVR or turn to palliative care followed by hospice care. Medications Medications (Trade) Dose Ordered Sig/Yared Route Start Time Stop Time Status Last Admin Dose Admin Levothyroxine Sodium (Synthroid Tab) 75 mcg DAILYBB PO 09/08/16 06:30 10/08/16 06:29 09/08/16 06:29 75 MCG Magnesium Chloride (Slow-Mag Tab) 64 mg QAM PO 09/08/16 09:00 10/08/16 08:59 09/08/16 09:23 64 MG Prednisone (PredniSONE TAB) 40 mg QAM PO 09/08/16 09:00 10/08/16 08:59 09/08/16 09:23 40 MG Levofloxacin (Levaquin Tab) 750 mg DAILY@1800 PO 09/08/16 18:00 09/14/16 17:59 09/08/16 17:54 750 MG Travoprost (Travatan Z) 1 drops HS OPB 09/08/16 21:00 10/08/16 20:59 09/08/16 22:08 1 DROPS Ipratropium [place] (Atrovent 0.02% 0.5MG/2.5ML Neb) 0.5 mg Q8R INH 09/08/16 16:00 10/08/16 15:59 09/08/16 21:19 0.5 MG Levalbuterol (Xopenex 0.63 Mg/ 3 Ml Neb) 0.63 mg Q8R INH 09/08/16 16:00 10/08/16 15:59 09/08/16 21:19 0.63 MG Objective Vital Signs Date Time Temp Pulse Resp B/P Pulse Ox O2 Delivery O2 Flow Rate FiO2 09/09/16 00:30 35.8 90 20 145/77 97 Nasal Cannula 3.0 09/08/16 21:19 72 22 97 Nasal Cannula 3.0 09/08/16 20:01 Mask 6.0 09/08/16 19:45 83 20 118/59 98 Nasal Cannula 3.0 09/08/16 16:00 Nasal Cannula 3.0 09/08/16 14:47 36.5 88 20 148/47 96 09/08/16 13:31 84 22 97 Nasal Cannula 3.0 09/08/16 12:00 Nasal Cannula 3.0 09/08/16 11:07 36.5 84 20 122/94 98 09/08/16 08:00 98 Nasal Cannula 4.0 09/08/16 07:42 86 22 98 Nasal Cannula 6.0 09/08/16 07:38 36.6 86 20 134/62 99 09/08/16 05:06 36.3 81 20 119/64 96 Nasal Cannula 6.0 09/08/16 04:05 Mask 6.0 09/08/16 00:42 36.7 92 20 141/84 95 Nasal Cannula 6.0 Physical Exam General Appearance: no apparent distress Eyes: normal inspection ENT: hearing grossly normal Neck: supple Respiratory/Chest: lungs clear, normal breath sounds Cardiovascular: + irregularly irregular Abdomen: normal bowel sounds Extremities: normal range of motion Neurologic/Psychiatric: alert Laboratory Results Last 24 Hours Test 09/08/16 07:08 White Blood Count 4.41 K/uL Red Blood Count 3.58 M/uL Hemoglobin 11.1 g/dL Hematocrit 32.5 % Mean Corpuscular Volume 90.8 fL Mean Corpuscular Hemoglobin 31.0 pg Mean Corpuscular Hemoglobin Concent 34.2 g/dl Platelet Count 209 K/uL Mean Platelet Volume 10.1 fL Neutrophils (%) (Auto) 75.7 % Lymphocytes (%) (Auto) 11.6 % Monocytes (%) (Auto) 12.5 % Eosinophils (%) (Auto) 0.0 % Basophils (%) (Auto) 0.0 % Neutrophils # (Auto) 3.34 K/uL Lymphocytes # (Auto) 0.51 K/uL Monocytes # (Auto) 0.55 K/uL Eosinophils # (Auto) 0.00 K/uL Basophils # (Auto) 0.00 K/uL RDW Standard Deviation 41.1 fL RDW Coefficient of Variation 12.2 % Immature Granulocyte % (Auto) 0.2 % Immature Granulocyte # (Auto) 0.01 K/uL Sodium Level 135 mmol/L Potassium Level 4.0 mmol/L Chloride Level 97 mmol/L Carbon Dioxide Level 28 mmol/L Anion Gap 10.0 mmol/L Blood Urea Nitrogen 13 mg/dl Creatinine 0.56 mg/dl Est Creatinine Clear Calc Drug Dose 55.4 ml/min Estimated GFR () 98.5 Estimated GFR (Non- 85.0 BUN/Creatinine Ratio 23.9 Random Glucose 109 mg/dl Calcium Level 8.5 mg/dl Magnesium Level 1.8 mg/dl Assessment and Plan (1) Atrial fibrillation with RVR (2) Critical stenosis of aortic valve (3) Pneumonia Assessment & Plan: continue levoflox
[2016-09-09] MEDS: LEVOTHYROXINE 75 MCG TAB PO SCH (06:03)
[2016-09-09] MEDS: LEVALBUTEROL 0.63MG/3 ML NEB INH SCH ×2 (08:00→20:04)
[2016-09-09] MEDS: IPRATROPIUM BROMIDE NEB SOLN 0.02% 2.5 ML VIAL INH SCH ×2 (08:00→20:04)
[2016-09-09] MEDS: BUDESONIDE/FORMOTEROL FUMARATE 80/4.5 60 PUFFS/INHALER INH SCH ×2 (09:17→21:51)
[2016-09-09] MEDS: MAGNESIUM CHLORIDE 64MG DELAYED REL TAB PO SCH (09:17)
[2016-09-09] MEDS: DILTIAZEM HCL 30 MG TAB PO SCH ×2 (09:17→17:50)
[2016-09-09] MEDS ORDERED: NURSING VERBAL MED ORDER ONE ×2 (09:45→11:15)
--- NOTE | 2016-09-09 11:18 | PULMONARY PROGRESS NOTE ---
DATE: 09/09/2016 TIME: 10:45 a.m. SUBJECTIVE: The patient is generally feeling better. She is less short of breath. Her overall sense of wellbeing has improved. She is still having some increased heart rates with relatively minimal exertion such as walking into the hallway. The patient does complain of tremors. This is likely related to her neb treatments. She has had some constipation. She complains of a hollow feeling in her head. She did have a history of ear surgery many years ago. This feeling is bothering her more today than usual, however. OBJECTIVE: GENERAL: The patient appears comfortable. She was in no distress. She was cooperative, alert and oriented. HEENT: Ear exam revealed cerumen in both external auditory canals. There was more on the right than on the left. The left tympanic membrane appeared okay. I could not visualize well the right side. She admits she does see Dr. Recio as an outpatient. Nasal passages were dry and somewhat narrowed. NECK: Palpation of the neck reveals no lymph nodes. HEART: Rate is 94 per minute. The rhythm is irregularly irregular compatible with atrial fibrillation. Blood pressure 139/76. Temperature is 36.4. LUNGS: Lung luis today are clear. Respiratory rate is 20 breaths per minute. Saturations were 97% on 3 liters. EXTREMITIES: Showed no cyanosis, clubbing or edema. She has not had any laboratory studies today. IMPRESSIONS: 1. Left lower lobe pneumonia. 2. Chronic obstructive pulmonary disease -- severe. 3. Aortic stenosis -- severe. 4. Atrial fibrillation. 5. Obstructive sleep apnea. RECOMMENDATIONS: The patient expressed concern that she does not know what to do about considering an aortic valve procedure or not. I suggested that she might want to go to a tertiary care center and get their opinion as to whether they felt she was a candidate or not. She continues on the levofloxacin. We are going to arrange for her to get [place] nasal spray to see if that helps. She is having some tremors with the levalbuterol even though the dose is only the 0.63. Perhaps the prednisone may be contributing to the tremors as well. Overall, she is much improved. From a pulmonary perspective, I suspect she might be able to be discharged on Sunday. I will repeat a chest x-ray tomorrow morning.
[2016-09-09] MEDS: POLYETHYLENE (MIRALAX) 17 GM PACK PO PRN (11:24)
[2016-09-09] MEDS ORDERED: SODIUM CHLORIDE 0.65% NA SOLN 45 ML (OCEAN) ONE (11:27)
[2016-09-09] MEDS ORDERED: SODIUM CHLORIDE 0.65% NA SOLN 45 ML (OCEAN) PRN (11:45)
--- NOTE | 2016-09-09 15:03 | Cardiology Follow-Up ---
Cardiology Follow-Up Date of Service Sep 09, 2016. Cardiology Follow-Up SUBJECTIVE: 86-year-old woman with severe aortic stenosis, permanent atrial fibrillation, significant COPD, and other medical problems was admitted 09/07/2016 with COPD exacerbation and pneumonia. She was noted to have rapid ventricular rate, her long-acting diltiazem was replaced with q.8 hours short-acting diltiazem with marked improvement in her ventricular response. Over the past 2 days, her clinical status is improved.She was comfortable at rest, she did note an increase in heart rate when she walked to the hallway earlier today. No chest pain, presyncope, or syncope. PHYSICAL EXAMINATION: No distress. Vitals: BP 125/66, pulse in the 80s and irregular, respirations 18 and unlabored. Skin: No unusual lesions or ecchymosis. HEENT: Unremarkable. Neck: Jugular venous pulse at the clavicle at 90, no obvious carotid bruits. Lungs: Moderately decreased breath sounds with prolonged expiratory phase but only faint wheezing. No crackles. No accessory muscle use. Cardiac: Irregular but not tachycardic rhythm. 3/6 right upper sternal border systolic ejection murmur with absent aortic valve closure sound. No diastolic murmur or gallop. Abdomen: Benign. Extremities: Nontender without edema. Intact peripheral pulses. Neurologic: Normal affect today, nonfocal DATA: No labs today. IMPRESSION: 1. Permanent atrial fibrillation, rapid ventricular response on admission. 2. Left lower lobe pneumonia, clinically improving. 3. Severe aortic stenosis 4. COPD, bronchospasm diminishing 5. Multiple other medical problems, compensated. DISCUSSION: Patient well known to me from outpatient encounters (I am her primary ramp supervisor). She is doing well clinically presently with generally good rate control. Since she does have some mild tachycardia with activity, will gently further upwardly titrate her diltiazem. We have discussed at length the potential for TAVR, she has been reluctant but now that she is ill she is reconsidering. She does not want this to be done at [facility], will explore other options but she is concerned about "traveling too far". Will continue to follow along.
[2016-09-09] MEDS: RIVAROXABAN TAB 15 MG TAB PO SCH (16:50)
[2016-09-09] MEDS: LEVOFLOXACIN 750 MG TAB PO SCH (17:51)
--- NOTE | 2016-09-09 18:55 | Hospitalist Progress Note ---
Hospitalist Progress Note Date of Service Sep 09, 2016. Subjective Pt evaluation today including: conversation w/ patient patient with no complaints contemplating value TAVR at [facility] Objective Vital Signs Date Time Temp Pulse Resp B/P Pulse Ox O2 Delivery O2 Flow Rate FiO2 09/09/16 17:17 36.4 97 16 163/82 95 09/09/16 15:45 Nasal Cannula 3.0 09/09/16 15:04 87 98 09/09/16 11:53 36.8 87 18 125/66 98 3.0 09/09/16 11:45 Nasal Cannula 3.0 09/09/16 08:59 84 20 97 Nasal Cannula 3.0 09/09/16 08:00 Nasal Cannula 3.0 09/09/16 07:24 36.4 86 18 139/76 95 3.0 09/09/16 04:23 36.3 87 20 126/74 98 Nasal Cannula 3.0 09/09/16 04:05 Mask 3.0 09/09/16 00:30 35.8 90 20 145/77 97 Nasal Cannula 3.0 09/09/16 00:05 Mask 3.0 09/08/16 21:19 72 22 97 Nasal Cannula 3.0 09/08/16 20:01 Mask 6.0 09/08/16 19:45 83 20 118/59 98 Nasal Cannula 3.0 Physical Exam Neck: supple Respiratory/Chest: chest non-tender Cardiovascular: regular rate, rhythm Abdomen: normal bowel sounds Extremities: normal range of motion Assessment and Plan (1) Atrial fibrillation with RVR Assessment & Plan: Cardiology input appreciated symptoms have improved (2) Critical stenosis of aortic valve Assessment & Plan: TAVR discussed and the need for an opinion by the doctor who would preform the procedure. (3) Pneumonia
[2016-09-09] MEDS: TRAVOPROST Z 0.004% OPH SOLN 2.5 ML BTL OPB SCH (21:52)
[2016-09-09] MEDS: OLMESARTAN MEDOXOMIL 40 MG TAB PO SCH (21:52)
[2016-09-10] VITALS (7 sets, daily range): BP systolic 123–164; BP diastolic 56–82; PULSE 72–96; TEMP 36.3–36.6; O2SAT 94–99
[2016-09-10] MEDS: DILTIAZEM HCL 30 MG TAB PO SCH ×4 (01:12→17:54)
[2016-09-10] MEDS: LEVOTHYROXINE 75 MCG TAB PO SCH (05:35)
[2016-09-10 06:54] LABS: CREATININE 0.72 mg/dl (0.60-1.20)
[2016-09-10] MEDS: LEVALBUTEROL 0.63MG/3 ML NEB INH SCH ×2 (07:36→19:40)
[2016-09-10] MEDS: IPRATROPIUM BROMIDE NEB SOLN 0.02% 2.5 ML VIAL INH SCH ×2 (07:36→19:40)
[2016-09-10] MEDS: BUDESONIDE/FORMOTEROL FUMARATE 80/4.5 60 PUFFS/INHALER INH SCH ×2 (07:38→22:10)
[2016-09-10] MEDS: MAGNESIUM CHLORIDE 64MG DELAYED REL TAB PO SCH (07:39)
[2016-09-10] MEDS: POLYETHYLENE (MIRALAX) 17 GM PACK PO PRN (07:45)
--- NOTE | 2016-09-10 08:25 | PULMONARY PROGRESS NOTE ---
DATE: 09/10/2016 TIME: 07:40 a.m. SUBJECTIVE: The patient is feeling better. Her breathing has continued to improve. She is definitively less short of breath she feels. She is not coughing much. She is having trouble sleeping here in the hospital. The tremors that she was getting from the neb treatments have diminished since the treatments for cut back to every 12 hours. OBJECTIVE: GENERAL: The patient appeared comfortable. She was sleeping when I first when in, but awakened readily and oriented quickly. VITAL SIGNS: Temperature is 36.3. Heart rate is 57 per minute. The rhythm is irregularly irregular. The heart rate is definitely slower than it had been. Her diltiazem dose was adjusted yesterday. Blood pressure is 123/56. LUNGS: Lung luis were essentially clear. No wheezes, rales or rhonchi were heard. Saturation is 98% on 3 liters. She has not had a chest x-ray done yet that was ordered for this morning. EXTREMITIES: Show no cyanosis, clubbing or edema. LABORATORY DATA: Today's creatinine is 0.72. IMPRESSIONS: 1. Left lower lobe pneumonia. 2. Chronic obstructive pulmonary disease -- severe. 3. Aortic stenosis -- severe. 4. Atrial fibrillation. 5. History of sleep apnea -- untreated. COMMENTS AND RECOMMENDATIONS: The patient is clinically improved. She may be ready for discharge in 1 more day. After discharge, her prednisone can be tapered gradually over 7-10 days. She has a nebulizer at home. I believe she would benefit from being on levalbuterol and ipratropium on an every 12 hour basis as she is doing here. The levalbuterol should be at 0.63 dosage. It is unclear when she had her last TSH checked. That could be affecting her heart rate. We will double check on the TSH. The patient is still considering the possibility of a procedure on her aortic valve. She indicated an interest perhaps in going either to [facility] in [place], where her nephew had surgery or perhaps to [facility], which would be closer for her. She certainly is not committed at present to make a definitive decision what she wants to do.
--- NOTE | 2016-09-10 09:18 | DIAGNOSTIC IMAGING REPORT ---
CHEST 2 VIEWS ROUTINE HISTORY: Follow-up left lower lobe opacity. COMPARISON: Chest 09/07/2016. FINDINGS: No pneumothorax. The heart is normal in size. Small left pleural effusion and pulmonary vascular congestion persist. Improved aeration within the left lung base. No new focal lung consolidations. IMPRESSION: Small left pleural effusion and mild pulmonary vascular congestion persist. Electronically signed by: Barrera Gutiérrez M.D. 09/10/2016 9:15 AM Dictated Date/Time: 09/10/2016 9:14 AM
--- NOTE | 2016-09-10 10:44 | Cardiology Follow-Up ---
Cardiology Follow-Up Date of Service Sep 10, 2016. Cardiology Follow-Up SUBJECTIVE: 86-year-old woman with severe aortic stenosis, permanent atrial fibrillation, significant COPD, and other medical problems was admitted 09/07/2016 with COPD exacerbation and pneumonia. She was noted to have rapid ventricular rate, her long-acting diltiazem was replaced with q.8 hours short-acting diltiazem with marked improvement in her ventricular response. Over the past several days, her clinical status has continued to improve. Today , she was comfortable at rest. Her heart rate overnight was less tachycardia, she did have some slow response during the night while she was sleeping (40s), but this was asymptomatic. Her dyspneic symptoms are markedly improved. PHYSICAL EXAMINATION: No distress. Vitals: BP 1 123/56, pulse 72 and irregular, respirations 18 and unlabored. Skin: No unusual lesions or ecchymosis. HEENT: Unremarkable. Neck: Jugular venous pulse at the clavicle at 90, no obvious carotid bruits. Lungs: Moderately decreased breath sounds with prolonged expiratory phase but only faint wheezing. No crackles. No accessory muscle use. Cardiac: Irregular but not tachycardic rhythm. 3/6 right upper sternal border systolic ejection murmur with absent aortic valve closure sound. No diastolic murmur or gallop. Abdomen: Benign. Extremities: Nontender without edema. Intact peripheral pulses. Neurologic: Normal affect today, nonfocal DATA: Creatinine 0.72 (unchanged from admission). IMPRESSION: 1. Permanent atrial fibrillation, rapid ventricular response on admission/rate now controlled. 2. Left lower lobe pneumonia, clinically improving. 3. Severe aortic stenosis, discussing possible TAVR in her future. 4. COPD, bronchospasm resolving. 5. Multiple other medical problems, compensated. DISCUSSION: She is steadily improving clinically, but does have very severe underlying cardiac valvular and pulmonary disease. Would switch her to long-acting diltiazem presently (240 milligram seems reasonable) and continue to observe as her pulmonary situation improves. We have discussed at length the potential for TAVR, she has been reluctant but she is is reconsidering. Dr. Rucker mentioned that this procedure is done in the [facility], she would like to explore this option as an outpatient. Will continue to follow along.
--- NOTE | 2016-09-10 17:12 | Hospitalist Progress Note ---
Hospitalist Progress Note Date of Service Sep 10, 2016. Subjective Pt evaluation today including: conversation w/ patient, physical exam, chart review, conversation w/ program consultant Patient is feeling better, maybe able to discharge as early as 09/11 if clinically she continues to improve Medications Medications (Trade) Dose Ordered Sig/Yared Route Start Time Stop Time Status Last Admin Dose Admin Ipratropium [place] (Atrovent 0.02% 0.5MG/2.5ML Neb) 0.5 mg Q12R INH 09/09/16 20:00 10/09/16 19:59 09/10/16 07:36 0.5 MG Prednisone (PredniSONE TAB) 30 mg QAM PO 09/10/16 09:00 10/10/16 08:59 09/10/16 07:39 30 MG Levalbuterol (Xopenex 0.63 Mg/ 3 Ml Neb) 0.63 mg Q12R INH 09/09/16 20:00 10/09/16 19:59 09/10/16 07:36 0.63 MG Diltiazem HCl (Cardizem Tab) 90 mg Q6 PO 09/09/16 18:00 10/09/16 17:59 09/10/16 12:54 90 MG Objective Vital Signs Date Time Temp Pulse Resp B/P Pulse Ox O2 Delivery O2 Flow Rate FiO2 09/10/16 15:45 Nasal Cannula 3.0 Humidified Oxygen 09/10/16 12:00 Nasal Cannula 3.0 Humidified Oxygen 09/10/16 11:38 36.3 91 18 144/74 94 3.0 09/10/16 08:00 Nasal Cannula 3.0 Humidified Oxygen 09/10/16 07:38 76 18 98 Nasal Cannula 3.0 09/10/16 07:26 36.3 72 18 123/56 99 3.0 09/10/16 03:42 36.5 86 20 148/82 95 Nasal Cannula 3.0 09/10/16 00:05 Mask 3.0 09/10/16 00:01 36.5 94 20 137/74 98 Nasal Cannula 3.0 09/09/16 20:08 77 18 98 Nasal Cannula 3.0 09/09/16 20:05 Mask 3.0 09/09/16 19:38 36.4 94 20 128/63 97 Nasal Cannula 3.0 09/09/16 17:17 36.4 97 16 163/82 95 Physical Exam General Appearance: no apparent distress Eyes: normal inspection ENT: hearing grossly normal Neck: supple, trachea midline Respiratory/Chest: lungs clear Cardiovascular: regular rate, rhythm, no edema Abdomen: normal bowel sounds Extremities: normal range of motion Laboratory Results Last 24 Hours Test 09/10/16 05:30 Creatinine 0.72 mg/dl Est Creatinine Clear Calc Drug Dose 43.1 ml/min Estimated GFR () 88.5 Estimated GFR (Non- 76.4 Assessment and Plan (1) Atrial fibrillation with RVR Assessment & Plan: Discussed with Dr. Mason and the patient's rate controll is improving may be able to go tomorrow. On Xarelto for anticoagulation. (2) Critical stenosis of aortic valve Assessment & Plan: Discussed with Dr. Rucker, and Dr. Mason, Patient has been encouraged to pick an institution that is comfortable with, the two that are in the running are [facility], and [facility]. She has a nephew with congenital heart disease who recently underwent TAVR at [facility], and is now walking [address] Rucker knows one of the lead physicians at [facility], and he is going to explore if that would be a good option for her. I have encouraged her to decide if she is going to have a TAVR, by setting up an evaluation at either institution so she can hear from the person who would perform the procedure what the risks of the procedure are, if that person performs the procedure. She also could decide to not pursue TAVR, and if this pathway is taken a life expectancy of less than a year has been quoted to her by a professional tutor at [facility]. The health care team will support whatever choice works for her. This is in the context of advanced COPD that she would have to have the procedure performed. Supportive care consultation will be requested with Jeri Siddiquiace GONZALEZ to add an additional layer of support and care to her case. If she opts not to have the valve fixed repeat hospitalizations can be anticipated to increase in frequency. If she decides she is not receiving the TAVR, as we know hospice conversations should start when patient's prognosis is less than a year. She is a candidate for hospice enrollment because of her advanced lung disease, and critical , if the valve is not replaced. Her code status can also be addressed in the context of her decision. A POLST could be completed prior to discharge and reviewed with each visit that she returns. (3) Pneumonia Assessment & Plan: Clinically improving. Discharge planning: home
[2016-09-10] MEDS: RIVAROXABAN TAB 15 MG TAB PO SCH (17:54)
[2016-09-10] MEDS: OLMESARTAN MEDOXOMIL 40 MG TAB PO SCH (22:11)
[2016-09-10] MEDS: TRAVOPROST Z 0.004% OPH SOLN 2.5 ML BTL OPB SCH (22:11)
[2016-09-11] VITALS (8 sets, daily range): BP systolic 121–166; BP diastolic 62–79; PULSE 72–125; TEMP 36.3–36.7; O2SAT 90–99
[2016-09-11] MEDS: DILTIAZEM HCL 30 MG TAB PO SCH ×2 (00:43→06:14)
[2016-09-11] MEDS: LEVOTHYROXINE 75 MCG TAB PO SCH (06:14)
[2016-09-11 06:54] LABS: HEMATOCRIT 34.8 % (37-47); MEAN CORPUSCULAR HEMOGLOBIN 31.6 pg (25-34); MEAN CORPUSCULAR HGB CONC 33.9 g/dl (32-36); MEAN PLATELET VOLUME 9.9 fL (7.4-10.4); PLATELET COUNT 273 K/uL (130-400); RED BLOOD COUNT 3.74 M/uL (4.2-5.4); WHITE BLOOD COUNT 7.23 K/uL (4.8-10.8)
[2016-09-11] MEDS: IPRATROPIUM BROMIDE NEB SOLN 0.02% 2.5 ML VIAL INH SCH ×2 (07:15→19:43)
[2016-09-11] MEDS: LEVALBUTEROL 0.63MG/3 ML NEB INH SCH ×2 (07:15→19:43)
[2016-09-11 07:31] LABS: BUN/CREATININE RATIO 22.8 (10-20); CREATININE 0.72 mg/dl (0.60-1.20); POTASSIUM 3.7 mmol/L (3.5-5.1)
[2016-09-11] MEDS: MAGNESIUM CHLORIDE 64MG DELAYED REL TAB PO SCH (09:20)
[2016-09-11] MEDS: BUDESONIDE/FORMOTEROL FUMARATE 80/4.5 60 PUFFS/INHALER INH SCH ×2 (09:21→21:39)
--- NOTE | 2016-09-11 09:30 | Pulmonology Progress Note ---
Pulmonary Progress Note Date of Service Sep 11, 2016. Attending Dr. Soto Subjective Has felt improved from a respiratory standpoint over the last 2-days. Some intermitent non-productive cough. NO nocturnal symptoms. Reports vocal hoarseness and pharyngitis secondary to mixing "inhalers" but unsure which. No fevers or chills. Anticipating discharge. Objective Patient admitted from the outpatient pulmonary office 09/07/16 with dyspnea/ hypoxia, LLL infiltrate on CXR (09/07) and a.fib RVR. She was treated with levofloxacin with adjustment in her chronotropic medications with improvement. Further discussion regarding TAVR and she is considering options. Palliative care consulted. CXR 09/10/16: small left pleural effusion and pulmonary vascular congestion. Improvement aeration in left lung base. PMHx includes: grade I diastolic dysfunction, severe (BINA 0.5cm2 - mean gradient 38mmHg - no intervention), severe COPD (PFT 02/03: FEV1: 44%, DLCO: 28) , glaucoma, hypothyroid, GERD, atrial fibrillation, CKD III, renal mass/lesion, HTN, melanoma, Moderate ALONZO (no CPAP), CVA. Former tobacco: 20-pack year, quit 1969 Today: - Afebrile, HD stable, mildly hypertensive - O2: 90-98% - 3LPM - Wt: 53.8kg - WBC/Hgb/Hct/Plts: 7.23/11.8/34.8/273 Physical Exam: Constitutional: WDWN elderly female lying in hospital bed. No acute distress Head: + facial symmetry. Eyes: EOMi, PERRLA, no injection Mouth: moist mucous membranes. Mallampati I. No erythema, exudate or lesions visible Respiratory: non-labored respirations. o2 via NC. Fine crackles - scattered. NO wheeze. CV: Regular rate. II/ systolic murmur. Warm and perfused peripherally GI: abdomen is soft, non-tender. Active bowel sounds MSK/Extremities: moving and developed symmetrically. NO peripheral edema Neurologic: Alert, oriented. Follows commands and answers questions appropriately Assessment & Plan 86-yo female admitted with hypoxic exacerbation of COPD wtih LLL infiltrate and a.fib-RVR in the setting of severe : 1. Start Spiriva 1 puff Q AM and stop Combivent with h/o RVR. Should use Xopedex /Levalbuterol for PRN rescue inhaler 2. Agree with palliative care consult 3. Will need ambulatory O2 assessment prior to discharge 4. Taper prednisone: decrease by 5mg Q2-days until off 5. Will need f/u with Dr. Rucker in 1-2 weeks post discharge. Patient discussed and plan agreed on. Data Medications: Current Inpatient Medications Medications (Trade) Dose Ordered Sig/Yared Route Start Time Stop Time Status Last Admin Dose Admin Acetaminophen (Tylenol Tab) 650 mg Q4H PRN PO 09/07/16 15:15 10/07/16 15:14 Ondansetron HCl (Zofran Inj) 4 mg Q6H PRN IV 09/07/16 15:15 10/07/16 15:14 Budesonide/ Formoterol Fumarate (Symbicort 80/ 4.5 Inh) 2 puffs BID INH 09/07/16 21:00 10/07/16 20:59 09/11/16 09:21 2 PUFFS Levothyroxine Sodium (Synthroid Tab) 75 mcg DAILYBB PO 09/08/16 06:30 10/08/16 06:29 09/11/16 06:14 75 MCG Magnesium Chloride (Slow-Mag Tab) 64 mg QAM PO 09/08/16 09:00 10/08/16 08:59 09/11/16 09:20 64 MG Olmesartan (Benicar Tab) 40 mg QPM PO 09/07/16 21:00 10/07/16 20:59 09/10/16 22:11 40 MG Rivaroxaban (Xarelto Tab) 15 mg QDD PO 09/07/16 21:00 10/07/16 20:59 09/10/16 17:54 15 MG Ipratropium Jones (Atrovent 0.02% 0.5MG/2.5ML Neb) 0.5 mg Q6R PRN INH 09/07/16 16:45 10/07/16 16:44 09/07/16 18:40 0.5 MG Levalbuterol (Xopenex 0.63 Mg/ 3 Ml Neb) 0.63 mg Q6R PRN INH 09/07/16 16:45 10/07/16 16:44 09/08/16 07:41 0.63 MG Travoprost (Travatan Z) 1 drops HS OPB 09/08/16 21:00 10/08/16 20:59 09/10/16 22:11 1 DROPS Morphine Sulfate (MoRPHine SULFATE INJ) 2 mg Q6H PRN IV 09/08/16 08:30 09/22/16 08:29 Levofloxacin (Consult) 1 ea UD PRN N/A 09/08/16 14:15 10/08/16 14:14 Polyethylene (Miralax Powder Packet) 17 gm DAILY PRN PO 09/09/16 10:00 10/09/16 09:59 09/10/16 07:45 17 GM Ipratropium Jones (Atrovent 0.02% 0.5MG/2.5ML Neb) 0.5 mg Q12R INH 09/09/16 20:00 10/09/16 19:59 09/11/16 07:15 0.5 MG Prednisone (PredniSONE TAB) 30 mg QAM PO 09/10/16 09:00 10/10/16 08:59 09/11/16 09:21 30 MG Sodium Chloride (Dinosaur Nasal [place]) 1 sprays PRN PRN NA 09/09/16 11:45 10/09/16 11:44 Levalbuterol (Xopenex 0.63 Mg/ 3 Ml Neb) 0.63 mg Q12R INH 09/09/16 20:00 10/09/16 19:59 09/11/16 07:15 0.63 MG Diltiazem HCl (Cardizem Tab) 90 mg Q6 PO 09/09/16 18:00 10/09/16 17:59 09/11/16 06:14 90 MG Levofloxacin (Levaquin Tab) 750 mg Q2D@1800 PO 09/11/16 18:00 09/14/16 17:59 I & O: 24-Hour Column 09/11/16 08:00 Intake Total 1035 ml Output Total 1550 ml Balance -515 ml Vital Signs: Date Time Temp Pulse Resp B/P Pulse Ox O2 Delivery O2 Flow Rate FiO2 09/11/16 07:37 36.7 77 16 143/77 90 Nasal Cannula 3.0 09/11/16 07:15 72 18 94 Nasal Cannula 3.0 09/11/16 04:05 Mask 3.0 09/11/16 04:00 36.7 79 16 130/67 98 Nasal Cannula 3.0 09/11/16 00:11 36.5 80 18 166/79 95 Nasal Cannula 3.0 09/11/16 00:05 Mask 3.0 09/10/16 20:05 Mask 3.0 09/10/16 19:41 78 18 98 Nasal Cannula 3.0 09/10/16 19:25 36.6 96 22 164/71 97 Nasal Cannula 3.0 Humidified Oxygen 09/10/16 15:45 Nasal Cannula 3.0 Humidified Oxygen 09/10/16 12:00 Nasal Cannula 3.0 Humidified Oxygen 09/10/16 11:38 36.3 91 18 144/74 94 3.0 Laboratory Results: Last 24 Hours Test 09/11/16 06:44 White Blood Count 7.23 K/uL Red Blood Count 3.74 M/uL Hemoglobin 11.8 g/dL Hematocrit 34.8 % Mean Corpuscular Volume 93.0 fL Mean Corpuscular Hemoglobin 31.6 pg Mean Corpuscular Hemoglobin Concent 33.9 g/dl RDW Standard Deviation 43.5 fL RDW Coefficient of Variation 12.8 % Platelet Count 273 K/uL Mean Platelet Volume 9.9 fL Sodium Level 136 mmol/L Potassium Level 3.7 mmol/L Chloride Level 101 mmol/L Carbon Dioxide Level 31 mmol/L Anion Gap 4.0 mmol/L Blood Urea Nitrogen 16 mg/dl Creatinine 0.72 mg/dl Est Creatinine Clear Calc Drug Dose 43.1 ml/min Estimated GFR () 88.5 Estimated GFR (Non- 76.4 BUN/Creatinine Ratio 22.8 Random Glucose 85 mg/dl Calcium Level 8.0 mg/dl
--- NOTE | 2016-09-11 11:27 | Cardiology Follow-Up ---
Cardiology Follow-Up Date of Service Sep 11, 2016. Cardiology Follow-Up SUBJECTIVE: 86-year-old woman with severe aortic stenosis, permanent atrial fibrillation, significant COPD, and other medical problems was admitted 09/07/2016 with COPD exacerbation and pneumonia. She was noted to have rapid ventricular rate, her long-acting diltiazem was replaced with short-acting diltiazem with marked improvement in her ventricular response. Over the past several days, her clinical status has continued to improve. Today , she was comfortable at rest. Her heart rate overnight was very well controlled without any up episodes of bradycardia or tachycardia. She still has dyspnea on exertion and is on supplemental oxygen. PHYSICAL EXAMINATION: No distress. Vitals: BP 143/77, pulse 77 and regular, respirations 16 but mildly labored. Skin: No unusual lesions or ecchymosis. HEENT: Unremarkable. Neck: Jugular venous pulse just above the clavicle at 90 with increased respiratory variation, no obvious carotid bruits. Lungs: Moderately decreased breath sounds with prolonged expiratory phase but only faint wheezing and a few scattered rhonchi. No crackles. No accessory muscle use. Cardiac: Irregular but not tachycardic rhythm. 3/6 right upper sternal border systolic ejection murmur with absent aortic valve closure sound. No diastolic murmur or gallop. Abdomen: Benign. Extremities: Nontender without edema. Intact peripheral pulses. Neurologic: Normal affect today, nonfocal DATA: Hemoglobin 11.8 with normal white count and platelet count. Normal electrolytes, BUN 16, creatinine 0.72 IMPRESSION: 1. Permanent atrial fibrillation, rapid ventricular response on admission/rate now controlled. 2. Left lower lobe pneumonia, clinically improving. 3. Severe aortic stenosis, discussing possible TAVR in her future. 4. COPD, bronchospasm resolving. 5. Multiple other medical problems, compensated. DISCUSSION: She is steadily improving clinically, but does have very severe underlying cardiac valvular and pulmonary disease. Would switch her to long-acting diltiazem presently (360 milligram) and discharge her on this. The patient and I have previously negotiated anticoagulation, would continue reduced dose Xarelto as outpatient. We have discussed at length the potential for TAVR, she has been reluctant but she is is reconsidering. Dr. Rucker mentioned that this procedure is done in the [facility], she would like to explore this option as an outpatient. Case discussed with Dr. Prasad and Maria Ines Smith PA-C. Will continue to follow along.
--- NOTE | 2016-09-11 11:52 | Hospitalist Progress Note ---
Hospitalist Progress Note Date of Service Sep 11, 2016. (Maria Ines Smith PA-C) Subjective Pt evaluation today including: conversation w/ patient, physical exam, chart review, lab review, review of studies, conversation w/ service loss control consultant, review of inpatient medication list Patient admits to still feeling somewhat short of breath. Nonproductive cough noted. Denies any chest pain or pressure. No dizziness or heart palpitations. Denies any nausea. Unsure of when her last bowel movement was. Denies any abdominal pain. No fever or chills. Additional Comments: 6 system review negative. Please see pertinent positives in the history of present illness section. (Maria Ines Smith PA-C) Objective Vital Signs Date Time Temp Pulse Resp B/P Pulse Ox O2 Delivery O2 Flow Rate FiO2 09/11/16 11:22 36.4 73 18 140/67 99 High Flow Oxygen 3.0 Nasal Cannula 09/11/16 08:00 Nasal Cannula 3.0 Humidified Oxygen 09/11/16 07:37 36.7 77 16 143/77 90 Nasal Cannula 3.0 09/11/16 07:15 72 18 94 Nasal Cannula 3.0 09/11/16 04:05 Mask 3.0 09/11/16 04:00 36.7 79 16 130/67 98 Nasal Cannula 3.0 09/11/16 00:11 36.5 80 18 166/79 95 Nasal Cannula 3.0 09/11/16 00:05 Mask 3.0 09/10/16 20:05 Mask 3.0 09/10/16 19:41 78 18 98 Nasal Cannula 3.0 09/10/16 19:25 36.6 96 22 164/71 97 Nasal Cannula 3.0 Humidified Oxygen 09/10/16 15:45 Nasal Cannula 3.0 Humidified Oxygen 09/10/16 12:00 Nasal Cannula 3.0 Humidified Oxygen (Maria Ines Smith PA-C) Physical Exam General Appearance: + mild distress (mildly anxious in appearance.) Eyes: EOMI Neck: no adenopathy, no JVD Respiratory/Chest: + pertinent finding (very faint wheeze noted bilaterally. No crackles or rhonchi.) Cardiovascular: + pertinent finding (occasionally irregular. Systolic murmur noted.) Abdomen: normal bowel sounds, non tender, soft Extremities: non-tender, no pedal edema Neurologic/Psychiatric: no motor/sensory deficits, oriented x 3 Skin: warm/dry (Maria Ines Smith PA-C) Laboratory Results 09/11/16 06:44 09/11/16 06:44 Test 09/11/16 06:44 Red Blood Count 3.74 M/uL (4.2-5.4) Mean Corpuscular Volume 93.0 fL (80-100) Mean Corpuscular Hemoglobin 31.6 pg (25-34) Mean Corpuscular Hemoglobin Concent 33.9 g/dl (32-36) RDW Standard Deviation 43.5 fL (36.4-46.3) RDW Coefficient of Variation 12.8 % (11.5-14.5) Mean Platelet Volume 9.9 fL (7.4-10.4) Anion Gap 4.0 mmol/L (3-11) Est Creatinine Clear Calc Drug Dose 43.1 ml/min Estimated GFR () 88.5 Estimated GFR (Non- 76.4 BUN/Creatinine Ratio 22.8 (10-20) Calcium Level 8.0 mg/dl (8.5-10.1) Thyroid Stimulating Hormone (TSH) < 0.005 uIu/ml (0.300-4.500) Last 24 Hours Test 09/11/16 06:44 White Blood Count 7.23 K/uL Red Blood Count 3.74 M/uL Hemoglobin 11.8 g/dL Hematocrit 34.8 % Mean Corpuscular Volume 93.0 fL Mean Corpuscular Hemoglobin 31.6 pg Mean Corpuscular Hemoglobin Concent 33.9 g/dl RDW Standard Deviation 43.5 fL RDW Coefficient of Variation 12.8 % Platelet Count 273 K/uL Mean Platelet Volume 9.9 fL Sodium Level 136 mmol/L Potassium Level 3.7 mmol/L Chloride Level 101 mmol/L Carbon Dioxide Level 31 mmol/L Anion Gap 4.0 mmol/L Blood Urea Nitrogen 16 mg/dl Creatinine 0.72 mg/dl Est Creatinine Clear Calc Drug Dose 43.1 ml/min Estimated GFR () 88.5 Estimated GFR (Non- 76.4 BUN/Creatinine Ratio 22.8 Random Glucose 85 mg/dl Calcium Level 8.0 mg/dl Thyroid Stimulating Hormone (TSH) < 0.005 uIu/ml (Urban, Maria Ines P., PA-C) Assessment and Plan (1) Atrial fibrillation with RVR (2) Critical stenosis of aortic valve (3) Pneumonia 86 yo female with known COPD, now with mild COPD exacerbation, pneumonia, atrial fibrillation with RVR and hypoxia Acute hypoxic respiratory failure: combination of pneumonia and COPD -Continue Xopenex scheduled every 12 hours and as needed every 6 hours -Continue Symbicort -Continue prednisone today at 30 mg daily. Slow taper over the next 7-10 days -Continue Levaquin. Day 4/5 -Will need 2 step tomorrow-->only on O2 at night at home Atrial fibrillation with RVR-Rates much better -DC diltiazem 80 mg q 6 hr--> changed to diltiazem extended release 360 mg daily -Continue Xarelto -Cardiology following Severe aortic stenosis -Patient is now entertaining the idea of a TAVR -Follow up outpatient Hypothyroidism -Continue Synthroid -Check TSH DVT prophylaxis -Xarelto -TEDS, SCDs CODE STATUS -LEVEL I FULL CODE This chart was completed in part utilizing [employer] Speech Voice Recognition software. Attempts were made to minimize the grammatical errors, random word insertions, pronoun errors and incomplete sentences. Any formal questions or concerns about the content, text or information contained within the body of this dictation should be directly addressed to the provider for clarification. (Maria Ines Smith, PALakeC) Reviewed: Pt Seen/Exam by Me (Greta Prasad MD) History Physician Pipe Coverer And Insulator Supervision Note: I interviewed and examined the patient. Discussed with JACK Smith and agree with findings and plan as documented in the note. Any exceptions or clarifications are listed here: Patient extremely anxious and jumpy. States her breathing is still bad, still dyspneic with minimal exertion. Rapid A. fib is under control. Vitals reviewed Anxious, pressured speech, no distress Regular rate and rhythm, 3/6 systolic murmur heard best at the right upper sternal border Positive crackles left lower lung field, otherwise clear Abdomen positive bowel sounds, soft nontender, mildly distended Extremities-no edema 86-year-old female here with acute hypoxemic respiratory failure, COPD exacerbation, community-acquired pneumonia, and rapid atrial fibrillation. All conditions are improving. Still requiring oxygen. -We'll keep with her day to continue observation and continue steroids, Levaquin , two-step prior to discharge -She is considering evaluation for TAVR after discharge -Continue anticoagulation with Xarelto for atrial fibrillation Documented By: Greta Prasad (Greta Prasad MD)
--- NOTE | 2016-09-11 14:55 | Palliative Care Consultation ---
Consultation Date of Consultation: Sep 11, 2016. Requesting Physician: Dr. Donovan Attending Physician: Dr. Donovan Reason for Consultation: Goals of care History of Present Illness This 86 year old female patient presented to the hospital as a direct admit from Dr. Rucker's office after a CXR showed LLL infiltrate and patient was experiencing increased shortness of breath. She has a significant past medical history of COPD, CHF, severe aortic stenosis and others listed below. She also was in afib with RVR, HR 120-130s. Patient was admitted, cardiology and pulmonology following. Heart rate is improved, patient is still SOB. Question is whether or not patient would want to go through with aortic valve replacement. She has no advance directive/living will. Palliative care consulted to assist with establishing goals of care. I met with patient in room 287-2. She is awake, alert and oriented. Appears SOB but no distress. She denies pain or discomfort at this time. While discussing her medical conditions, it is apparent that the patient is distrusting of medical providers-- blaming different doctors for things that have happened to her. I tried to explain her illness and disease trajectory with her chronic conditions, but she doesn't seem to fully comprehend. She did very clearly state that her goal is for comfort and good quality of life, so anything (such as valve surgery) that would increase her chances of more time in the hospital or a half-way were out of the question. However, if a surgeon though she'd be a candidate for transcutaneous AVR, she'd consider it. Either way, her ultimate goal is consistent with hospice care in the home, but I'm not sure if she was fully understanding hospice. She has no family in the area, one son that lives in [place]. She went on for quite a while about issues with the family and issues with her in-home caregivers. Past Medical/Surgical History Medical History: Asthma Back pain Back pain Benign hypertension Bronchitis Cataract Dehydration Disorder of gallbladder Fall Humeral head fracture Kidney disease melanoma Neck pain Pneumonia Recurrent falls Right humeral fracture Social History Smoking Status: Former Smoker History of Alcohol Use: No Drug Use: none Marital Status: Housing Status: lives alone Occupation Status: retired Review of Systems Constitutional: + fatigue Respiratory: + dyspnea at rest, + shortness of breath, No cough Cardiac: + edema Abdomen: + problem reported (bloating), No nausea, No pain, No vomiting Female : No problem reported Allergies Coded Allergies: Clonidine (Verified Allergy, Mild, SHORTNESS OF BREATH, 07/04/16) Iodinated Diagnostic Agents (Verified Allergy, Unknown, "IT JUST AFFECTS ME AND I CAN'T EXPLAIN IT", 07/04/16) Latex1 -Allergic Contact Dermititis (Verified Allergy, Unknown, RASH, 07/04) Penicillins (Verified Allergy, Unknown, UNKNOWN, 07/04/16) Sulfa Antibiotics (Verified Allergy, Unknown, "SWELLING IN MOUTH AND DRIED OUT", 07/04/16) Medications Current Inpatient Medications Medications (Trade) Dose Ordered Sig/Yared Route Start Time Stop Time Status Last Admin Dose Admin Acetaminophen (Tylenol Tab) 650 mg Q4H PRN PO 09/07/16 15:15 10/07/16 15:14 Ondansetron HCl (Zofran Inj) 4 mg Q6H PRN IV 09/07/16 15:15 10/07/16 15:14 Budesonide/ Formoterol Fumarate (Symbicort 80/ 4.5 Inh) 2 puffs BID INH 09/07/16 21:00 10/07/16 20:59 09/11/16 09:21 2 PUFFS Levothyroxine Sodium (Synthroid Tab) 75 mcg DAILYBB PO 09/08/16 06:30 10/08/16 06:29 09/11/16 06:14 75 MCG Magnesium Chloride (Slow-Mag Tab) 64 mg QAM PO 09/08/16 09:00 10/08/16 08:59 09/11/16 09:20 64 MG Olmesartan (Benicar Tab) 40 mg QPM PO 09/07/16 21:00 10/07/16 20:59 09/10/16 22:11 40 MG Rivaroxaban (Xarelto Tab) 15 mg QDD PO 09/07/16 21:00 10/07/16 20:59 09/10/16 17:54 15 MG Ipratropium [place] (Atrovent 0.02% 0.5MG/2.5ML Neb) 0.5 mg Q6R PRN INH 09/07/16 16:45 10/07/16 16:44 09/07/16 18:40 0.5 MG Levalbuterol (Xopenex 0.63 Mg/ 3 Ml Neb) 0.63 mg Q6R PRN INH 09/07/16 16:45 10/07/16 16:44 09/08/16 07:41 0.63 MG Travoprost (Travatan Z) 1 drops HS OPB 09/08/16 21:00 10/08/16 20:59 09/10/16 22:11 1 DROPS Morphine Sulfate (MoRPHine SULFATE INJ) 2 mg Q6H PRN IV 09/08/16 08:30 09/22/16 08:29 Levofloxacin (Consult) 1 ea UD PRN N/A 09/08/16 14:15 10/08/16 14:14 Polyethylene (Miralax Powder Packet) 17 gm DAILY PRN PO 09/09/16 10:00 10/09/16 09:59 09/10/16 07:45 17 GM Ipratropium [place] (Atrovent 0.02% 0.5MG/2.5ML Neb) 0.5 mg Q12R INH 09/09/16 20:00 10/09/16 19:59 09/11/16 07:15 0.5 MG Prednisone (PredniSONE TAB) 30 mg QAM PO 09/10/16 09:00 10/10/16 08:59 09/11/16 09:21 30 MG Sodium Chloride ([place] [facility] Nasal [place]) 1 sprays PRN PRN NA 09/09/16 11:45 10/09/16 11:44 Levalbuterol (Xopenex 0.63 Mg/ 3 Ml Neb) 0.63 mg Q12R INH 09/09/16 20:00 10/09/16 19:59 09/11/16 07:15 0.63 MG Levofloxacin (Levaquin Tab) 750 mg Q2D@1800 PO 09/11/16 18:00 09/14/16 17:59 Diltiazem HCl (Dilacor Xr Cap) 360 mg QAM PO 09/12/16 09:00 10/12/16 08:59 Physical Exam Date Time Temp Pulse Resp B/P Pulse Ox O2 Delivery O2 Flow Rate FiO2 09/11/16 12:00 Nasal Cannula 3.0 Humidified Oxygen 09/11/16 11:22 36.4 73 18 140/67 99 High Flow Oxygen 3.0 Nasal Cannula 09/11/16 08:00 Nasal Cannula 3.0 Humidified Oxygen 09/11/16 07:37 36.7 77 16 143/77 90 Nasal Cannula 3.0 09/11/16 07:15 72 18 94 Nasal Cannula 3.0 09/11/16 04:05 Mask 3.0 09/11/16 04:00 36.7 79 16 130/67 98 Nasal Cannula 3.0 09/11/16 00:11 36.5 80 18 166/79 95 Nasal Cannula 3.0 09/11/16 00:05 Mask 3.0 09/10/16 20:05 Mask 3.0 09/10/16 19:41 78 18 98 Nasal Cannula 3.0 09/10/16 19:25 36.6 96 22 164/71 97 Nasal Cannula 3.0 Humidified Oxygen 09/10/16 15:45 Nasal Cannula 3.0 Humidified Oxygen General Appearance: no apparent distress, + thin ENT: + pertinent finding (hard of hearing. uses device to hear) Neck: supple, no JVD Respiratory: + pertinent finding (patient is short of breath at rest, slightly tachypneic. on nasal cannula) Cardiovascular: + irregularly irregular, + normal peripheral pulses Abdomen: normal bowel sounds, non tender, soft, + distended Neurologic/Psychiatric: alert, normal mood/affect, oriented x 3 Laboratory Results Last 24 Hours Test 09/11/16 06:44 White Blood Count 7.23 K/uL Red Blood Count 3.74 M/uL Hemoglobin 11.8 g/dL Hematocrit 34.8 % Mean Corpuscular Volume 93.0 fL Mean Corpuscular Hemoglobin 31.6 pg Mean Corpuscular Hemoglobin Concent 33.9 g/dl RDW Standard Deviation 43.5 fL RDW Coefficient of Variation 12.8 % Platelet Count 273 K/uL Mean Platelet Volume 9.9 fL Sodium Level 136 mmol/L Potassium Level 3.7 mmol/L Chloride Level 101 mmol/L Carbon Dioxide Level 31 mmol/L Anion Gap 4.0 mmol/L Blood Urea Nitrogen 16 mg/dl Creatinine 0.72 mg/dl Est Creatinine Clear Calc Drug Dose 43.1 ml/min Estimated GFR () 88.5 Estimated GFR (Non- 76.4 BUN/Creatinine Ratio 22.8 Random Glucose 85 mg/dl Calcium Level 8.0 mg/dl Thyroid Stimulating Hormone (TSH) < 0.005 uIu/ml Assessment & Plan Palliative Performance Scale: 50 % Problem list: Shortness of breath Fatigue LLL infiltrate COPD Severe aortic stenosis Atrial fibrillation Goals of care (Z51.5) Palliative care recommendations: discussed with patient and Maria Ines Smith PA-C -Patient wants to be a level 5 DNR/DNI -Goal is for comfort and good quality of life. Needs to follow up about possibility of aortic valve surgery in order to make a decision of whether or not to have surgery. We discussed hospice and patient would be agreeable once she knows if she is having surgery or not. She would never want to be a in a half-way. -She has no living will, but did state that she would never want to be maintained in a vegetative state. She would not want a feeding tube, CPR, or intubation. -Lives home alone right now, has caregivers through [employer] that come in 20 hours a week. Also has home health. Thank you for this consult, I will follow as needed.
[2016-09-11] MEDS: RIVAROXABAN TAB 15 MG TAB PO SCH (17:14)
[2016-09-11] MEDS: POLYETHYLENE (MIRALAX) 17 GM PACK PO PRN (17:19)
[2016-09-11] MEDS ORDERED: LEVOFLOXACIN 750 MG TAB PO SCH (18:00)
[2016-09-11] MEDS: TRAVOPROST Z 0.004% OPH SOLN 2.5 ML BTL OPB SCH (21:40)
[2016-09-11] MEDS: OLMESARTAN MEDOXOMIL 40 MG TAB PO SCH (21:40)
[2016-09-12 00:05] VITALS: BP 170/102; PULSE 102; TEMP 36.5; O2SAT 98
[2016-09-12 04:21] VITALS: BP 164/100; PULSE 99; TEMP 36.6; O2SAT 98
[2016-09-12] MEDS: LEVOTHYROXINE 75 MCG TAB PO SCH (06:32)
[2016-09-12 07:16] VITALS: PULSE 98; O2SAT 97
[2016-09-12] MEDS: IPRATROPIUM BROMIDE NEB SOLN 0.02% 2.5 ML VIAL INH SCH (07:16)
[2016-09-12] MEDS: LEVALBUTEROL 0.63MG/3 ML NEB INH SCH (07:16)
[2016-09-12] MEDS: MAGNESIUM CHLORIDE 64MG DELAYED REL TAB PO SCH (07:41)
[2016-09-12] MEDS: BUDESONIDE/FORMOTEROL FUMARATE 80/4.5 60 PUFFS/INHALER INH SCH (07:41)
[2016-09-12 07:42] VITALS: BP 172/105; PULSE 102; TEMP 36.4; O2SAT 96
[2016-09-12] MEDS ORDERED: DILTIAZEM HCL 180 MG ER CAP PO SCH (09:00)
[2016-09-12] MEDS ORDERED: ATRINS INH (12:06)
[2016-09-12] MEDS ORDERED: DLCSR180 PO (12:06)
[2016-09-12] MEDS ORDERED: XPNINS INH (12:06)
[2016-09-12] MEDS ORDERED: SYN50 PO (12:06)
[2016-09-12] MEDS ORDERED: PRED10TA PO (12:06)
--- NOTE | 2016-09-12 12:17 | Discharge Instructions ---
Discharge Instructions Date of Service Sep 12, 2016. Admission Reason for Admission: Copd Exacerbation, Pneumonia Discharge Discharge Diagnosis / Problem: pneumonia, COPD exacerbation, a fib Discharge Goals Goal(s): Improve function, Diagnostic testing, Therapeutic intervention Activity Recommendations Activity Limitations: resume your previous activity . Instructions / Follow-Up Instructions / Follow-Up You were treated in the hospital for pneumonia, COPD exacerbation and atrial fibrillation. Your symptoms have improved with antibiotics, steroids, nebulizer treatments and close monitoring The following changes/additions have been made to your medication list: -Please do Xopenex/ipratropium nebulizer treatments every 6 hours as needed for shortness of breath. Do not take this with Combivent. THIS IS A SUBSTITUTE FOR COMBIVENT -Please finish the prednisone taper as instructed -PLEASE TAKE SYNTHROID EXACTLY PRESCRIBED. 75 mcg 1 TAB DAILY Please follow up with Dr. Rucker as scheduled Please also follow up with Dr. Mason as scheduled You should also follow up with your primary care physician within one week You will need repeat blood work in 4-6 weeks to check your thyroid You will also need a repeat chest xray in 4 weeks Call your doctor or return to the emergency department if you have any of the following symptoms: -Fever of 101F or greater -Persistent vomiting - Persistent diarrhea -Lethargy -Chest pain -Shortness of breath -severe dizziness -weakness on one side of your body Current Hospital Diet Patient's current hospital diet: AHA Diet (Heart Healthy) Discharge Diet Recommended Diet: AHA Diet (Heart Healthy), Low Sodium Diet (2gm Na) Pending Studies Studies pending at discharge: no Laboratory Results Medical Emergencies . Who to Call and When: Medical Emergencies: If at any time you feel your situation is an emergency, please call 911 immediately. . Non-Emergent Contact Non-Emergency issues call your: Primary Care Provider . . "Provider Documentation" section prepared by Maria Ines Smith. . VTE Core Measure Inpt VTE Proph given/why not?: Other Anticoagulation (Xarelto)
--- NOTE | 2016-09-12 12:34 | Discharge Summary ---
Discharge Summary Date of Service Sep 12, 2016. (Maria Ines Smith PA-C) Discharge Summary Admission Date: Sep 07, 2016 at 15:01 Discharge Date: Sep 12, 2016 Discharge Disposition: Home with services Principal Diagnosis: pneumonia, COPD exacerbation, A. fib with RVR Problems/Secondary Diagnoses: Aortic stenosis Hypertension Immunizations: Have You Had Influenza Vaccine: No History of Tetanus Vaccine?: utd History of Hepatitis B Vaccine: No Consultations: Palliative care Cardiology Pulmonary (Maria Ines Smith PA-C) Medication Reconciliation New Medications: Prednisone (Prednisone) 5 Mg Tab 5 MG PO UD, #40 TABS take 6 tabs x 2 days 5 tabs x 2 days 4 tabs x 2 days 3 tabs x 2 day 2 tabs x 2 days 1 tabs x 2 days Diltiazem HCl (Diltiazem HCl ER) 180 Mg Caper 360 MG PO QAM for 30 Days, #30 DOSE Ipratropium [place] (Ipratropium [place]) 0.5 Mg/2.5 Ml Nebu 0.5 MG INH Q6R PRN for Shortness of Breath for 14 Days, #56 DOSE Levalbuterol (Levalbuterol HCl) 0.63 Mg/3 Ml Nebu 0.63 MG INH Q6R PRN for Shortness of Breath for 14 Days, #56 DOSE Changed Medications: Levothyroxine Sodium (Synthroid) 75 Mcg Tab 75 MCG PO QAM for 30 Days (Medication details modified) ONLY TAKE ONE TAB DAILY AND REPEAT THYROID BLOOD WORK IN 4 WEEKS Continued Medications: Budesonide/Formoterol Fumarate (Symbicort 80/4.5 Inhaler) 120 Puffs/ Aero 2 PUFFS PO BID Carboxymethylcellulose-Glyceri (Refresh Optive Advanced) 1 [place] 1 DROP OPB HS Ergocalciferol (Vitamin D Cap) 50,000 Interunit Cap 58573 INTER.UNIT PO WK WEDNESDAYS Furosemide (Lasix) 20 Mg Tab 20 MG PO DAILY PRN for WEIGHT GAIN Hydrochlorothiazide (Hydrochlorothiazide) 12.5 Mg Tab 1 TAB PO HS Magnesium Chloride (Slow-Mag Tab) 64 Mg Tabcr 64 MG PO QAM, TAB Multivitamin (Multivitamin) Tab 1 TAB PO QAM, TAB Olmesartan Medoxomil (Benicar) 40 Mg Tab 40 MG PO QPM Oxygen (Oxygen) Gas 3-4 LITERS NA HS Potassium Chloride (Micro-K Ext Rel) 10 Meq Capcr 10 MEQ PO DAILY PRN for WITH LASIX Rivaroxaban (Xarelto) 15 Mg Tab 15 MG PO QPM Travoprost (Travatan Z) 0.004 % [place] 1 DROPS OPB HS Discontinued Medications: Diltiazem Hcl Ext Rel (Tiazac) 120 Mg Capcr 120 MG PO LUNCH Ipratropium-Albuterol (Combivent Respimat) 1 Aer Aer 1 PUFFS INH QID Referrals At Discharge Follow up Referrals: Supervisor Logging Referral - Within 2 Weeks with Oliverio Mason M.D. Physician Referral - Within 2 Weeks with Lee Rucker DO Physician Referral - Within 1 Week with RV. Trevizo MD Discharge Exam Patient says that her breathing is about the same. She still has a mild nonproductive cough. Denies any chest pain or pressure. No heart palpitations or dizziness. No fever or chills overnight. Review of Systems: Constitutional: No fever Respiratory: + cough Cardiovascular: No chest pain Abdomen: No nausea Genitourinary - Male: No dysuria Physical Exam: General Appearance: + mild distress (anxious in appearance) Neck: no JVD Respiratory/Chest: + pertinent finding (no significant wheezing or crackles auscultated.) Cardiovascular: + irregularly irregular Abdomen / GI: normal bowel sounds, non tender, soft Extremities: no calf tenderness, no pedal edema Neurologic/Psychiatric: alert, oriented x 3 (Maria Ines Smith, PALakeC) Hospital Course (1) Atrial fibrillation with RVR (2) Critical stenosis of aortic valve (3) Pneumonia 86 yo female with known COPD, now with mild COPD exacerbation, pneumonia, atrial fibrillation with RVR and hypoxia Acute hypoxic respiratory failure: combination of pneumonia, COPD and rapid a fib -Pulmonary consult -Treated with Xopenex/ipratropium, IV steroids, which were weaned to prednisone po and a 5 day course of Levaquin -2 step performed the day of d/c-->stable with ambulation -continue O2 HS only -Follow-up chest x-ray in 3-4 weeks Atrial fibrillation with RVR-Rates much better. Probably also exacerbated secondary to her thyroid. See below -Monitored on telemetry -Cardiology consult -Initially diltiazem was changed to 120 mg po BID -Once the patient agreed to an IV, she was changed to diltiazem 80 mg every 6 hours. This gave her good rate control. -This was eventually changed to diltiazem extended release 360 mg daily -Continue Xarelto Severe aortic stenosis -Patient is now entertaining the idea of a TAVR -Follow up outpatient Hypothyroidism-TSH low -After a lengthy discussion with the patient, she has been inappropriately increasing her Synthroid at home (taking at least 1.5 pills daily), because she reports gaining weight. She says that she is up to 118 and she typically weighs 112 pounds. (pt seems to be extremely focused on weight gain). -I explained the weight gain could also be secondary to heart failure given her rapid A. fib -Patient's home dose of Synthroid 75 g daily. She was instructed to take this DIRECTED -She will need a repeat thyroid panel in 4-6 weeks -She will continue to follow her weight at home DVT prophylaxis -Xarelto -TEDS, SCDs CODE STATUS -palliative care consult for goals of care -LEVEL V DO NO RESUSCITATE This chart was completed in part utilizing [employer] Speech Voice Recognition software. Attempts were made to minimize the grammatical errors, random word insertions, pronoun errors and incomplete sentences. Any formal questions or concerns about the content, text or information contained within the body of this dictation should be directly addressed to the provider for clarification. Total Time Spent: Greater than 30 minutes This includes examination of the patient, discharge planning, medication reconciliation, and communication with other providers. (Maria Ines Smith PA-C) Discharge Instructions Please refer to the electronic Patient Visit Report (Discharge Instructions) for additional information. (Maria Ines Smith PA-C) Follow-Up PCP 1 week pulm/cardiology 2 weeks (Maria Ines Smith PA-C) Additional Copies To RV. Trevizo MD; Lee Rucker DO; Oliverio Mason M.D. Reviewed: Pt Seen/Exam by Me (Greta Prasad MD) History Physician Technical Service Representative Supervision Note: I interviewed and examined the patient. Discussed with JACK Smith and agree with findings and plan as documented in the note. Any exceptions or clarifications are listed here: Patient very anxious in general, argumentative about multiple issues but I believe I got through to her about the importance of taking her Synthroid the correct way. Her TSH was undetectable Vitals reviewed Anxious, pressured speech, no distress Regular rate and rhythm, 3/6 systolic murmur heard best at the right upper sternal border Positive crackles left lower lung field, otherwise clear Abdomen positive bowel sounds, soft nontender, mildly distended Extremities-no edema 86-year-old female here with acute hypoxemic respiratory failure, COPD exacerbation, community-acquired pneumonia, and rapid atrial fibrillation. All conditions are improving. No longer requiring oxygen - continue steroid taper, Levaquin 5 day course -She is considering evaluation for TAVR after discharge -Continue anticoagulation with Xarelto for atrial fibrillation Documented By: Greta Prasad (Greta Prasad MD)
[2016-09-12] MEDS ORDERED: PRD5 PO (12:45)
[2016-09-12] MEDS ORDERED: LEVO75TA PO (13:19)
[2016-09-12 13:46] VITALS: BP 172/105; PULSE 102; TEMP 36.4; O2SAT 96
--- NOTE | 2016-09-12 14:14 | Cardiology Follow-Up ---
Cardiology Follow-Up Date of Service Sep 12, 2016. Cardiology Follow-Up SUBJECTIVE: 86-year-old woman with severe aortic stenosis, permanent atrial fibrillation, significant COPD, and other medical problems was admitted 09/07/2016 with COPD exacerbation and pneumonia. She was noted to have rapid ventricular rate, her long-acting diltiazem was replaced with short-acting diltiazem with marked improvement in her ventricular response. Over the past several days, her clinical status has continued to improve, however last night her heart rate increased. It appears that she received her Q 6 our diltiazem 90 mg only twice yesterday and she did not start her long- acting diltiazem until today. Also, she was upset some dialogue regarding her prognosis yesterday. he denies any dyspnea at rest and is no longer on supplemental oxygen. No chest pain at any time. No subjective palpitations currently. PHYSICAL EXAMINATION: No distress. Vitals: Afebrile. BP 172/105, pulse 102 and irregular, respirations 16 nonlabored. Skin: No unusual lesions or ecchymosis. HEENT: Unremarkable. Neck: Jugular venous pulse just above the clavicle at 90 with increased respiratory variation, no obvious carotid bruits. Lungs: Moderately decreased breath sounds but generally clear. Cardiac: Irregular and mildly tachycardic rhythm. 3/6 right upper sternal border systolic ejection murmur with absent aortic valve closure sound. No diastolic murmur or gallop. Abdomen: Benign. Extremities: Nontender without edema. Intact peripheral pulses. Neurologic: Normal affect today, nonfocal DATA: TSH unmeasurably low. Free T4 1.65 IMPRESSION: 1. Permanent atrial fibrillation, intermittently rapid ventricular response. 2. Left lower lobe pneumonia, clinically improving. 3. Severe aortic stenosis, she is now willing to consider TAVR. 4. COPD, bronchospasm resolved. 5. Multiple other medical problems, compensated. DISCUSSION: She is steadily improving from a pulmonary standpoint, however her heart rate was poorly controlled overnight. Observe now that she is on long-acting diltiazem presently (360 milligram). Continue reduced dose Xarelto as outpatient. Will arrange for open in on feasibility of TAVR as outpatient at [facility]. Case discussed with Dr. Prasad and Maria Ines Smith PA-C. Will continue to follow along.
[2016-09-13] MEDS ORDERED: LEVOTHYROXINE 50 MCG TAB PO SCH (06:30)
[2016-09-13] MEDS ORDERED: ATRINS NEB (22:00)
[2016-09-13] MEDS ORDERED: XPNINS NEB (22:00)
[2016-09-13] MEDS ORDERED: SLWMEC PO (22:00)
[2016-09-13] MEDS ORDERED: PRED-301 PO (22:00)
[2016-09-13] MEDS ORDERED: VTMD PO (22:00)
[2016-09-13] MEDS ORDERED: DILT-113 PO (22:00)
[2016-10-23] MEDS ORDERED: SYMIN/8045 INH (06:42)
[2016-10-23] MEDS ORDERED: XRL15 PO (06:48)
[2016-10-23] MEDS ORDERED: HYDR12.55 PO (15:04)
== END 2016-09-12 15:14 | disposition home health service (06) | DRG 291 ==
LOC: C.MED 15:01
PROVIDERS: ADMIT Internal Medicine; ATTEND Family Medicine
DX: I50.33 Acute on chronic diastolic (congestive) heart failure (principal); J96.01 Acute respiratory failure with hypoxia; J18.9 Pneumonia, unspecified organism; J44.1 Chronic obstructive pulmonary disease with (acute) exacerbation; J44.0 Chronic obstructive pulmonary disease with (acute) lower respiratory infection; I48.1 Persistent atrial fibrillation; I47.2 Ventricular tachycardia; H40.9 Unspecified glaucoma; I35.2 Nonrheumatic aortic (valve) stenosis with insufficiency; E03.9 Hypothyroidism, unspecified; N18.3 Chronic kidney disease, stage 3 (moderate); E78.5 Hyperlipidemia, unspecified; G62.9 Polyneuropathy, unspecified; I12.9 Hypertensive chronic kidney disease with stage 1 through stage 4 chronic kidney disease, or unspecified chronic kidney disease; N28.89 Other specified disorders of kidney and ureter; E05.90 Thyrotoxicosis, unspecified without thyrotoxic crisis or storm; K21.9 Gastro-esophageal reflux disease without esophagitis; G47.33 Obstructive sleep apnea (adult) (pediatric); J98.01 Acute bronchospasm; H91.93 Unspecified hearing loss, bilateral; Z66 Do not resuscitate; Z51.5 Encounter for palliative care; Z86.73 Personal history of transient ischemic attack (TIA), and cerebral infarction without residual deficits; Z86.79 Personal history of other diseases of the circulatory system; Z87.891 Personal history of nicotine dependence; Z99.81 Dependence on supplemental oxygen; Z79.01 Long term (current) use of anticoagulants; Z79.899 Other long term (current) drug therapy

== ENCOUNTER → 2016-09-07 | Outpatient (CLI) | payer OTHER ==
[~2016-09-07] MED LIST changes: +ALPR0.25 PO; +APIX1TAB PO; +DXY100 PO; -ERGO1CAP41 PO; +ERGO500011 PO; +FERR1TAB62 PO; -FERR325T PO; +FLUT1INH PO; +FRS/40 PO; +GFNSR600 PO; +LEVO1TAB35 PO; -LIDOCAINE HCL 2% 2 ML VIAL (20MG/ML) ONE; +LNX125 PO; +LPR25 PO; +MCRK20 PO; +MULT1CAP16 PO; +POTA10PO PO; +PRED20TA PO; -PROPOFOL IV EMULSION 10 MG/ML 20 ML VIAL IV ONE; -SODIUM CHLORIDE 0.9% 500ML 500 ML IV ONE; +SUCR1TAB29 PO; +TRAV0.00 OP
--- NOTE | 2016-09-07 12:38 | DIAGNOSTIC IMAGING REPORT ---
CHEST 2 VIEWS ROUTINE CLINICAL HISTORY: J44.9 Chronic obstructive pulmonary disease COPD COMPARISON STUDY: 01/03/2016 FINDINGS: Poorly defined parenchymal infiltrate left base. Emphysematous change. Pulmonary vascular congestion. No evidence for cardiac enlargement. IMPRESSION: Parenchymal infiltrate left base. Emphysematous change. Pulmonary vascular congestion. Electronically signed by: Fred Metzger M.D. 09/07/2016 12:36 PM Dictated Date/Time: 09/07/2016 12:36 PM
== END | disposition home or self-care (01) ==
LOC: C.RAD1850 12:22
PROVIDERS: ATTEND Internal Medicine Pulmonary Disease
DX: J44.9 Chronic obstructive pulmonary disease, unspecified (principal)

== ENCOUNTER 2016-09-13 21:14 | Emergency (ER) | payer OTHER ==
[~2016-09-13] VITALS: Ht 154.9 cm; Wt 56.3 kg
[2016-09-13 21:14] VITALS: O2SAT 95; Ht 154.9 cm; Wt 56.3 kg
[~2016-09-13 21:14] MED LIST changes: +ATRINS INH; -DILT120C68 PO; +DLCSR180 PO; -IPRA1AER2 INH; +PRD5 PO; +XPNINS INH
[2016-09-13] MEDS ORDERED: DILT-113 PO (22:00)
[2016-09-13] MEDS ORDERED: VTMD PO (22:00)
[2016-09-13] MEDS ORDERED: PRED-301 PO (22:00)
[2016-09-13] MEDS ORDERED: SLWMEC PO (22:00)
[2016-09-13] MEDS ORDERED: XPNINS NEB (22:00)
[2016-09-13] MEDS ORDERED: ATRINS NEB (22:00)
--- NOTE | 2016-09-13 22:10 | EMERGENCY ROOM VISIT NOTE ---
History Report prepared by Scribe: Kermit Baltazar Under the Supervision of: Dr. David Thompson D.O. First contact with patient: 22:03 Chief Complaint: RESPIRATORY PROBLEMS Stated Complaint: SOB Nursing Triage Summary: Patient present to ER via EMS. Patient is responsive, alert and oriented x 4. Patient is restless and breathing rapidly. Per EMS, patient was discharge from this Hospital yesterday. Patient c/o of shortness of breath since this morning. Patient states "I think is the Prednisone. I never taken it before. My left leg is also swollen and my right shoulder and right leg are cramping on and off too." Patient has hx of COPD and palpitations. History of Present Illness The patient is an 86 year old female who presents to the Emergency Room with complaints of improving shortness of breath that started tonight. The patient notes that she was breathing very rapidly upon arrival to the ED, which is improving. She is concerned over swelling of the tongue and left ankle. The patient notes that her medications were changed when she was discharged from the hospital yesterday. The patient denies chest pain. Source of History: patient Onset: tonight Position: other (respiratory) Quality: other (shortness of breath) Timing: other (improving) Associated Symptoms: No chest pain Review of Systems See HPI for pertinent positives and negatives. A total of ten systems were reviewed and were otherwise negative. Past Medical & Surgical Medical Problems: (1) Asthma (2) Atrial fibrillation with RVR (3) Back pain (4) Back pain (5) Benign hypertension (6) Bronchitis (7) Cataract (8) COPD exacerbation (9) Critical stenosis of aortic valve (10) Dehydration (11) Disorder of gallbladder (12) Dyspnea (13) Fall (14) Humeral head fracture (15) Kidney disease (16) melanoma (17) Neck pain (18) Pneumonia (19) Recurrent falls (20) Right humeral fracture (21) Severe aortic stenosis by prior echocardiogram Family History Heart disease Hypertension Social History Smoking Status: Former Smoker Alcohol Use: none Drug Use: none Marital Status: Housing Status: lives alone Occupation Status: retired Current/Historical Medications Scheduled Budesonide/Formoterol Fumarate (Symbicort 80/4.5 Inhaler), 2 PUFFS PO BID Carboxymethylcellulose-Glyceri (Refresh Optive Advanced), 1 DROP OPB HS Diltiazem Hcl Ext Rel (Tiazac), 360 MG PO QAM Ergocalciferol (Vitamin D), 50,000 UNITS PO WK Hydrochlorothiazide (Hydrochlorothiazide), 1 TAB PO HS Levothyroxine Sodium (Levothyroxine Sodium), 75 MCG PO QAM Magnesium Chloride (Slow-Mag Tab), 64 MG PO QAM Multivitamin (Multivitamin), 1 TAB PO QAM Olmesartan Medoxomil (Benicar), 40 MG PO QPM Oxygen (Oxygen), 3-4 LITERS NA HS Prednisone (Prednisone), 5 MG PO DAILY Rivaroxaban (Xarelto), 15 MG PO QPM Travoprost (Travatan Z), 1 DROPS OPB HS Scheduled PRN Furosemide (Lasix), 20 MG PO DAILY PRN for WEIGHT GAIN Ipratropium [place] (Ipratropium [place]), 0.5 MG NEB Q6H PRN for Shortness of Breath Levalbuterol (Levalbuterol HCl), 0.63 MG NEB Q6H PRN for Shortness of Breath Potassium Chloride (Micro-K Ext Rel), 10 MEQ PO DAILY PRN for WITH LASIX Allergies Coded Allergies: Clonidine (Verified Allergy, Mild, SHORTNESS OF BREATH, 09/13/16) Iodinated Diagnostic Agents (Verified Allergy, Unknown, "IT JUST AFFECTS ME AND I CAN'T EXPLAIN IT", 09/13/16) Latex1 -Allergic Contact Dermititis (Verified Allergy, Unknown, RASH, 09/13) Penicillins (Verified Allergy, Unknown, UNKNOWN, 09/13/16) Sulfa Antibiotics (Verified Allergy, Unknown, "SWELLING IN MOUTH AND DRIED OUT", 09/13/16) Physical Exam Vital Signs Date Time Temp Pulse Resp B/P Pulse Ox O2 Delivery O2 Flow Rate FiO2 09/13/16 21:53 87 25 113/65 93 Room Air 09/13/16 21:39 95 09/13/16 21:14 36.8 95 25 117/79 95 Room Air 09/13/16 21:14 95 Room Air 09/13/16 21:14 95 Room Air Physical Exam GENERAL: Awake, alert, anxious-appearing, in no distress HENT: Normocephalic, atraumatic. Oropharynx unremarkable. EYES: Normal conjunctiva. Sclera non-icteric. NECK: Supple. No nuchal rigidity. FROM. No JVD. RESPIRATORY: Clear to auscultation. CARDIAC: Regular rate, normal rhythm. Extremities warm and well perfused. Pulses equal. ABDOMEN: Soft, non-distended. No tenderness to palpation. No rebound or guarding. No masses. RECTAL: Deferred. MUSCULOSKELETAL: Chest examination reveals no tenderness. The back is symmetrical on inspection without obvious abnormality. There is no CVA tenderness to palpation. No joint edema. LOWER EXTREMITIES: Calves are equal size bilaterally and non-tender. Trace edema to the dorsum of the left foot. No discoloration. NEURO: Normal sensorium. No sensory or motor deficits noted. SKIN: No rash or jaundice noted. Medical Decision & Procedures ECG Indication: SOB/dyspnea Rate (beats per minute): 96 Rhythm: atrial fibrillation (rate controlled) Findings: nonspecific-ST abn, no acute ischemic change, other (normal axis) ED Course 2199: The patient was evaluated in room B12b. A complete history and physical exam was performed. 2214: Benadryl 25 mg PO. Medical Decision Differential diagnosis includes anxiety, panic attack, allergic reaction. Patient is not showing any evidence of angioedema patient was very anxious has calmed down after relaxing in the stretcher. Patient is rate controlled A. fib. Patient has very trace edema in her left foot and an Elliot wrap has been placed. Patient will be given Benadryl. Impression Primary Impression: Anxiety Additional Impression: Allergic reaction Scribe Attestation The scribe's documentation has been prepared under my direction and personally reviewed by me in its entirety. I confirm that the note above accurately reflects all work, treatment, procedures, and medical decision making performed by me. Departure Information Dispostion Home / Self-Care Referrals RV. Trevizo MD (PCP) Patient Instructions Anxiety Disorder, ED Allergic Reaction General Other, My [facility] Additional Instructions Use Elliot wrap to her left foot for edema; return for any concerns Problem Qualifiers
[2016-09-13 23:13] VITALS: BP 133/81; PULSE 92; TEMP 36.8; O2SAT 94
[2016-10-23] MEDS ORDERED: SYMIN/8045 INH (06:42)
[2016-10-23] MEDS ORDERED: XRL15 PO (06:48)
[2016-10-23] MEDS ORDERED: HYDR12.55 PO (15:04)
[2017-04-16] MEDS ORDERED: LEVO1TAB35 PO ×2 (10:34→15:19)
[2017-04-16] MEDS ORDERED: DXY100 PO (10:34)
== END 2016-09-13 23:13 | disposition home or self-care (01) ==
LOC: EDBD 21:14 → C.EDB 21:15
DX: F41.9 Anxiety disorder, unspecified (principal); T78.40XA Allergy, unspecified, initial encounter; X58.XXXA Exposure to other specified factors, initial encounter; J45.909 Unspecified asthma, uncomplicated; I48.91 Unspecified atrial fibrillation; I10 Essential (primary) hypertension; Z82.49 Family history of ischemic heart disease and other diseases of the circulatory system; Z87.891 Personal history of nicotine dependence

== ENCOUNTER 2016-09-23 15:20 | Inpatient (IN) | payer OTHER ==
[~2016-09-23] VITALS: Ht 154.9 cm; Wt 56.0 kg
[~2016-09-23 15:20] MED LIST changes: -ATRINS INH; +ATRINS NEB; +DILT-113 PO; -DLCSR180 PO; -ERGO1CAP35 PO; -LEVO75TA PO; -MAGNTAB4 PO; -PRD5 PO; +PRED-301 PO; +SLWMEC PO; +VTMD PO; -XPNINS INH; +XPNINS NEB
[2016-09-23] MEDS ORDERED: DILTIAZEM BOLUS / DRIP IV STA (15:54)
[2016-09-23] MEDS ORDERED: LEVALBUTEROL 1.25MG/0.5ML NEB INH STA (15:54)
[2016-09-23] MEDS ORDERED: SODIUM CHLORIDE 0.9% 1000ML 1,000 ML IV STA (15:54)
[2016-09-23] MEDS ORDERED: IPRATROPIUM BROMIDE NEB SOLN 0.02% 2.5 ML VIAL INH STA (15:54)
[2016-09-23] MEDS ORDERED: SODIUM CHLORIDE 0.9% 1000ML 250 ML IV STA (15:54)
--- NOTE | 2016-09-23 16:05 | EMERGENCY ROOM VISIT NOTE ---
History Report prepared by Luana: Gurpreet Sewell Under the Supervision of: Dr. Dejon Au M.D. First contact with patient: 15:46 Chief Complaint: SHORTNESS OF BREATH Stated Complaint: SOB History of Present Illness The patient is an 86 year old female with a history of atrial fibrillation who presents to the Emergency Room via EMS with complaints of worsening shortness of breath that started 3 to 4 days ago. The patient says she has been getting weaker over the past few days as well. She was recently admitted to this hospital a few weeks ago (September 07) for pneumonia with a flare up of her COPD. The patient says that she was taking antibiotics and Prednisone, but not currently. She states that she has had another illness for the past few days, with chills. She says that her body is currently freezing. The patient wants an x-ray to determine whether her pneumonia is still there or if this is a new illness. She notes that she has aortic stenosis, and has been to the hospital a few times for this recently. The patient says her aortic stenosis is keeping her from breathing well. She takes Xarelto for her atrial fibrillation. The patient only wears oxygen at night, but she says that for the past few days she started using it during the daytime as well, but she says that it has not been helping. She states that she has been overdosing on her Symbicort in order to help her breathing. The patient's last medication use was this morning. Source of History: patient, nursing staff Onset: 3 to 4 days ago Position: other (global - shortness of breath) Timing: worsening Associated Symptoms: + chills, + weakness Note: No other associated symptoms noted. Review of Systems See HPI for pertinent positives & negatives. A total of 10 systems reviewed and were otherwise negative. Past Medical & Surgical Medical Problems: (1) Asthma (2) Atrial fibrillation with RVR (3) Back pain (4) Back pain (5) Benign hypertension (6) Bronchitis (7) Cataract (8) COPD exacerbation (9) Critical stenosis of aortic valve (10) Dehydration (11) Disorder of gallbladder (12) Dyspnea (13) Fall (14) Humeral head fracture (15) Kidney disease (16) melanoma (17) Neck pain (18) Pneumonia (19) Recurrent falls (20) Right humeral fracture (21) Severe aortic stenosis by prior echocardiogram Family History Heart disease Hypertension Social History Smoking Status: Former Smoker Alcohol Use: none Drug Use: none Marital Status: Housing Status: lives alone Occupation Status: retired Current/Historical Medications Scheduled Budesonide/Formoterol Fumarate (Symbicort 80/4.5 Inhaler), 2 PUFFS PO BID Carboxymethylcellulose-Glyceri (Refresh Optive Advanced), 1 DROP OPB HS Diltiazem Hcl Ext Rel (Tiazac), 360 MG PO QAM Ergocalciferol (Vitamin D), 50,000 UNITS PO WK Hydrochlorothiazide (Hydrochlorothiazide), 1 TAB PO HS Levothyroxine Sodium (Levothyroxine Sodium), 75 MCG PO QAM Magnesium Chloride (Slow-Mag Tab), 64 MG PO QAM Multivitamin (Multivitamin), 1 TAB PO QAM Olmesartan Medoxomil (Benicar), 40 MG PO QPM Oxygen (Oxygen), 3-4 LITERS NA HS Rivaroxaban (Xarelto), 15 MG PO QPM Sennosides-Docusate Sodium (Stool Softener), 1 TAB PO BID Travoprost (Travatan Z), 1 DROPS OPB HS Scheduled PRN Furosemide (Lasix), 20 MG PO DAILY PRN for WEIGHT GAIN Ipratropium [place] (Ipratropium [place]), 0.5 MG NEB Q6H PRN for Shortness of Breath Levalbuterol (Levalbuterol HCl), 0.63 MG NEB Q6H PRN for Shortness of Breath Potassium Chloride (Micro-K Ext Rel), 10 MEQ PO DAILY PRN for WITH LASIX Allergies Coded Allergies: Clonidine (Verified Allergy, Mild, SHORTNESS OF BREATH, 09/23/16) Iodinated Diagnostic Agents (Verified Allergy, Unknown, "IT JUST AFFECTS ME AND I CAN'T EXPLAIN IT", 09/23/16) Latex1 -Allergic Contact Dermititis (Verified Allergy, Unknown, RASH, ) Penicillins (Verified Allergy, Unknown, UNKNOWN, 09/23/16) Sulfa Antibiotics (Verified Allergy, Unknown, "SWELLING IN MOUTH AND DRIED OUT", 09/23/16) Physical Exam Vital Signs Date Time Temp Pulse Resp B/P Pulse Ox O2 Delivery O2 Flow Rate FiO2 09/23/16 18:20 90 24 91 5/6/17 18:10 90/74 09/23/16 18:00 113/58 09/23/16 17:50 114 34 120/74 09/23/16 17:40 123/50 09/23/16 17:30 128/70 09/23/16 17:20 100 29 123/74 100 09/23/16 17:10 138/60 09/23/16 17:07 133/71 09/23/16 16:55 110/74 09/23/16 16:54 110 18 110/74 99 Room Air 09/23/16 16:50 127 23 98 09/23/16 16:29 105 28 96 Nasal Cannula 3.0 09/23/16 16:20 121 24 09/23/16 16:02 98 Nasal Cannula 3.0 09/23/16 15:50 125 23 09/23/16 15:37 98 Nasal Cannula 3.0 09/23/16 15:37 99 Nasal Cannula 3.0 09/23/16 15:32 137 09/23/16 15:27 36.9 151 28 141/77 86 Room Air 09/23/16 15:26 141/77 Physical Exam GENERAL: Patient is in no acute distress. Mildly anxious. HEENT: Mucous membranes moist, no facial trauma. Normocephalic atraumatic. No scleral icterus. NECK: No stridor, no adenopathy, no meningismus, trachea is midline. LUNGS: Increased respiratory rate. Decreased breath sounds bilaterally, wheezing bilaterally. Breath sounds are equal bilaterally. HEART: 4/6 systolic murmur. Tachycardic with an irregular rhythm. ABDOMEN: Soft, nontender, bowel sounds positive, no hernias, no peritonitis. EXTREMITIES: No cyanosis or edema, full range of motion of all the joints without pain or difficulty, no signs for acute trauma. NEUROLOGIC: Oriented x 3, no acute motor or sensory deficits, no focal weakness. SKIN: No rash, no jaundice, no diaphoresis. Medical Decision & Procedures ER Provider Diagnostic Interpretation: X-ray results as stated below per interpretation by me and the radiologist: CHEST ONE VIEW PORTABLE CLINICAL HISTORY: EVALUATE RESPIRATORY DISTRESS. DYSPNEA dyspnea COMPARISON STUDY: 09/10/2016 FINDINGS: Interstitial changes at both lung bases. Mild cardiomegaly. The lungs are clear. Mild underlying emphysematous change. IMPRESSION: Early interstitial edema Electronically signed by: Fred Metzger M.D. 09/23/2016 4:24 PM Dictated Date/Time: 09/23/2016 4:23 PM Laboratory Results 09/23/16 16:40 Red Blood Count 3.82, Mean Corpuscular Volume 91.6, Mean Corpuscular Hemoglobin 31.2, Mean Corpuscular Hemoglobin Concent 34.0, Mean Platelet Volume 10.4, Neutrophils (%) (Auto) 91.3, Lymphocytes (%) (Auto) 5.2, Monocytes (%) (Auto) 3.0, Eosinophils (%) (Auto) 0.1, Basophils (%) (Auto) 0.1, Neutrophils # (Auto) 14.56, Lymphocytes # (Auto) 0.83, Monocytes # (Auto) 0.48, Eosinophils # (Auto) 0.01, Basophils # (Auto) 0.02 09/23/16 16:40 Test 09/23/16 16:40 09/23/16 16:51 White Blood Count 15.95 K/uL (4.8-10.8) Red Blood Count 3.82 M/uL (4.2-5.4) Hemoglobin 11.9 g/dL (12.0-16.0) Hematocrit 35.0 % (37-47) Mean Corpuscular Volume 91.6 fL (80-100) Mean Corpuscular Hemoglobin 31.2 pg (25-34) Mean Corpuscular Hemoglobin Concent 34.0 g/dl (32-36) Platelet Count 230 K/uL (130-400) Mean Platelet Volume 10.4 fL (7.4-10.4) Neutrophils (%) (Auto) 91.3 % Lymphocytes (%) (Auto) 5.2 % Monocytes (%) (Auto) 3.0 % Eosinophils (%) (Auto) 0.1 % Basophils (%) (Auto) 0.1 % Neutrophils # (Auto) 14.56 K/uL (1.4-6.5) Lymphocytes # (Auto) 0.83 K/uL (1.2-3.4) Monocytes # (Auto) 0.48 K/uL (0.11-0.59) Eosinophils # (Auto) 0.01 K/uL (0-0.5) Basophils # (Auto) 0.02 K/uL (0-0.2) RDW Standard Deviation 42.6 fL (36.4-46.3) RDW Coefficient of Variation 12.6 % (11.5-14.5) Immature Granulocyte % (Auto) 0.3 % Immature Granulocyte # (Auto) 0.05 K/uL (0.00-0.02) Prothrombin Time 11.7 SECONDS (9.0-12.0) Prothromb Time International Ratio 1.1 (0.9-1.1) Activated Partial Thromboplast Time 29.9 SECONDS (21.0-31.0) Partial Thromboplastin Ratio 1.2 Anion Gap 9.0 mmol/L (3-11) Est Creatinine Clear Calc Drug Dose 57.5 ml/min Estimated GFR () 96.9 Estimated GFR (Non- 83.6 BUN/Creatinine Ratio 22.5 (10-20) Calcium Level 8.4 mg/dl (8.5-10.1) Magnesium Level 1.9 mg/dl (1.8-2.4) Total Bilirubin 0.8 mg/dl (0.2-1) Aspartate Amino Transf (AST/SGOT) 12 U/L (15-37) Alanine Aminotransferase (ALT/SGPT) 17 U/L (12-78) Alkaline Phosphatase 60 U/L (45-117) Troponin I < 0.015 ng/ml (0-0.045) C-Reactive Protein 6.01 mg/dl (0-0.29) Total Protein 6.8 gm/dl (6.4-8.2) Albumin 3.5 gm/dl (3.4-5.0) Globulin 3.3 gm/dl (2.5-4.0) Albumin/Globulin Ratio 1.1 (0.9-2) Procalcitonin 0.06 ng/ml (0-0.5) Thyroid Stimulating Hormone (TSH) 0.066 uIu/ml (0.300-4.500) Free Thyroxine 1.51 ng/dl (0.80-1.60) Influenza Type A (RT-PCR) Neg for Influ A (NEG) Influenza Type B (RT-PCR) Neg for Influ B (NEG) Laboratory results reviewed by me. Medications Administered Medications (Trade) Dose Ordered Sig/Yaerd Route Start Time Stop Time Status Last Admin Dose Admin Sodium Chloride 250 ml @ 999 mls/hr Q16M STAT IV 09/23/16 15:54 09/23/16 16:09 DC 09/23/16 15:54 999 MLS/HR Sodium Chloride (Nss 1000ml) 1,000 ml @ 125 mls/hr Q8H STAT IV 09/23/16 15:54 09/23/16 20:27 DC 09/23/16 15:54 125 MLS/HR Levalbuterol (Xopenex 1.25MG/ 0.5ML Neb) 1.25 mg NOW STAT INH 09/23/16 15:54 09/23/16 15:59 DC 09/23/16 15:54 1.25 MG Ipratropium [place] (Atrovent 0.02% 0.5MG/2.5ML Neb) 0.5 mg NOW STAT INH 09/23/16 15:54 09/23/16 15:59 DC 09/23/16 15:54 0.5 MG Diltiazem HCl 10 mg 10 mg TODAY@1615 IV 09/23/16 16:15 09/23/16 16:16 DC 09/23/16 16:44 10 MG Diltiazem HCl/ Dextrose (Cardizem Inj/D5 100ml) 125 ml @ 0 mls/hr Q0M PRN IV 09/23/16 16:15 09/23/16 18:00 DC 09/23/16 17:42 10 MLS/HR Ceftriaxone Sodium (Rocephin Inj) 1 gm NOW STAT IV 09/23/16 17:16 09/23/16 17:17 DC 09/23/16 18:31 1 GM ECG Indication: SOB/dyspnea Rate (beats per minute): 131 Rhythm: atrial fibrillation (rapid) Findings: T-wave inversion (in inferior and lateral leads) Comparison ECG Date: T wave changes are new compared to September 13 of this year ED Course 1547: The patient was evaluated in room B9. A complete history and physical exam was performed. 1554: Ordered Cardizem Bolus/Drip 1 ea IV, Atrovent 0.02% 0.5MG/2.5ML Neb 0.5 mg INH, Xopenex 1.25MG/0.5ML Neb 1.25 mg INH, NSS 1000 ml @ 125 mls/hr IV, NSS 250 ml @ 999 mls/hr IV. 1615: Ordered Cardizem Inj 10 mg IV. 1716: Ordered Rocephin Inj 1 gm IV. 1738: I discussed the patient with Dr. Nayely LOPEZ intelligence operations - he will evaluate the patient for further treatment. 1742: Upon reexamination the patient is resting comfortably and feeling better. Her heart rate is better as well. I discussed results and treatment plan with the patient. She verbalizes agreement and understanding. The patient will be evaluated for further management. Medical Decision Differential diagnosis includes but is not limited to rapid atrial fibrillation , NH, electrolyte imbalance, pneumonia, influenza, acute bronchitis, exacerbation of COPD, dehydration, anemia. There is a moderate leukocytosis which could be consistent with infection. No worrisome anemia. No significant electrolyte abnormality, kidney failure or hepatitis. There is no coagulopathy. EKG shows A. fib with a rapid rate and some inverted T waves in the inferior and lateral leads. These EKG T wave changes are new. Cardiac enzyme testing 1 is not consistent with acute cardiac injury. Influenza testing is negative. Chest x-ray does not show pneumonia or pneumothorax. Blood cultures are pending. The patient received a Xopenex Atrovent neb, she was given IV saline. She was given IV ceftriaxone. She was given a bolus of IV diltiazem and then placed on a diltiazem drip. With this treatment, she was resting more comfortably, her heart rate improved. Admission/observation is warranted. I did speak with the patient and case management. The on-call hospitalist was consulted. I suspect the dyspnea is secondary to acute bronchitis with a flare of COPD. I suspect her aortic stenosis and rapid A. fib are also part of why she is short of breath. Consults Time Called: [phone] Consulting Physician: Dr. Nayely LOPEZ [employer] operations Returned Call: [phone] I discussed the patient with Dr. Nayely LOPEZ [employer] operations - he will evaluate the patient for further treatment. Impression Primary Impression: Hypoxia Additional Impressions: Rapid atrial fibrillation Acute bronchitis COPD exacerbation Critical Care I have personally spent greater than 30 minutes of critical care time in the direct management of this patient. This includes bedside care, interpretation of diagnostic studies and testing, discussion with consultants, the patient, and family members, and other required patient management activities. This 30 minutes is in excess of all separately billable procedures. Scribe Attestation The scribe's documentation has been prepared under my direction and personally reviewed by me in its entirety. I confirm that the note above accurately reflects all work, treatment, procedures, and medical decision making performed by me. Departure Information Dispostion Being Evaluated By Hospitalist Referrals RV. Trevizo MD (PCP) Patient Instructions My [facility] Problem Qualifiers
[2016-09-23] MEDS ORDERED: DILTIAZEM HCL 5 MG/ML 5 ML VIAL IV SCH (16:15)
--- NOTE | 2016-09-23 16:25 | DIAGNOSTIC IMAGING REPORT ---
CHEST ONE VIEW PORTABLE CLINICAL HISTORY: EVALUATE RESPIRATORY DISTRESS. DYSPNEA dyspnea COMPARISON STUDY: 09/10/2016 FINDINGS: Interstitial changes at both lung bases. Mild cardiomegaly. The lungs are clear. Mild underlying emphysematous change. IMPRESSION: Early interstitial edema Electronically signed by: Fred Metzger M.D. 09/23/2016 4:24 PM Dictated Date/Time: 09/23/2016 4:23 PM
[2016-09-23] MEDS ORDERED: SENNTAB23 PO (16:27)
[2016-09-23 16:29] VITALS: PULSE 105; O2SAT 96
[2016-09-23] MEDS: DILTIAZEM HCL INJ 125 MG in DEXTROSE 5% 100ML IV PRN ×2 (16:44→17:42)
[2016-09-23 17:05] LABS: BASO % 0.1 %; BASO ABS # 0.02 K/uL (0-0.2); COMPLETE YES; EOS % 0.1 %; IG% 0.3 %; LYMPH % 5.2 %; LYMPH ABS # 0.83 K/uL (1.2-3.4); MEAN CELL VOLUME 91.6 fL (80-100); MEAN CORPUSCULAR HEMOGLOBIN 31.2 pg (25-34); MEAN PLATELET VOLUME 10.4 fL (7.4-10.4); NEUT % 91.3 %; PLATELET COUNT 230 K/uL (130-400); RED BLOOD COUNT 3.82 M/uL (4.2-5.4); WHITE BLOOD COUNT 15.95 K/uL (4.8-10.8)
[2016-09-23 17:15] LABS: INR 1.1 (0.9-1.1); PARTIAL THROMBOPLASTIN RATIO 1.2; PROTHROMBIN TIME (PATIENT) 11.7 SECONDS (9.0-12.0)
[2016-09-23] MEDS ORDERED: CEFTRIAXONE SOD INJ 1 GM ADDVIAL IV STA (17:16)
[2016-09-23 17:21] LABS: ALT/SGPT 17 U/L (12-78); AST/SGOT 12 U/L (15-37); BLOOD UREA NITROGEN 13 mg/dl (7-18); BUN/CREATININE RATIO 22.5 (10-20); CALCIUM 8.4 mg/dl (8.5-10.1); CARBON DIOXIDE 27 mmol/L (21-32); CHLORIDE 99 mmol/L (98-107); CREATININE 0.59 mg/dl (0.60-1.20); GLUCOSE 124 mg/dl (70-99); MAGNESIUM 1.9 mg/dl (1.8-2.4); POTASSIUM 3.6 mmol/L (3.5-5.1); SODIUM 135 mmol/L (136-145)
[2016-09-23 17:32] LABS: ALB/GLOB RATIO 1.1 (0.9-2); ALKALINE PHOSPHATASE 60 U/L (45-117); THYROID STIMULATING HORMONE 0.066 uIu/ml (0.300-4.500)
[2016-09-23] MEDS ORDERED: NITROGLYCERIN 0.4 MG SL PER TAB CHARGE SL PRN (18:15)
[2016-09-23] MEDS ORDERED: ONDANSETRON INJ 2 MG/ML 2 ML VIAL IV PRN (18:15)
[2016-09-23] MEDS ORDERED: MAGNESIUM HYDROXIDE SUSP 30 ML UDC PO PRN (18:15)
[2016-09-23] MEDS ORDERED: DILTIAZEM BOLUS / DRIP IV SCH (18:15)
[2016-09-23] MEDS ORDERED: POLYETHYLENE (MIRALAX) 17 GM PACK PO PRN (18:15)
[2016-09-23] MEDS ORDERED: FUROSEMIDE 20 MG TAB PO PRN (18:15)
[2016-09-23] MEDS ORDERED: POTASSIUM CHLORIDE 10 MEQ TABCR PO PRN (18:15)
[2016-09-23] MEDS ORDERED: ALUMINUM/MAGNESIUM/SIMETH (MAALOX MAX) 30 ML UDC PO PRN (18:15)
--- NOTE | 2016-09-23 18:40 | History and Physical ---
History & Physical Date & Time of Service: September 23, 2016 at 18:40 Chief Complaint: SOB Primary Care Physician: RV. Trevizo MD Past Medical/Surgical History Medical Problems: (1) Asthma Status: Chronic (2) Back pain Status: Resolved (3) Back pain Status: Resolved (4) Benign hypertension Status: Chronic (5) Bronchitis Status: Resolved (6) Cataract Status: Chronic (7) Dehydration Status: Resolved (8) Disorder of gallbladder Status: Chronic (9) Fall Status: Resolved (10) Humeral head fracture Status: Resolved (11) Kidney disease Status: Chronic (12) melanoma Status: Resolved (13) Neck pain Status: Resolved (14) Pneumonia Status: Resolved (15) Recurrent falls Status: Resolved (16) Right humeral fracture Status: Resolved Family History Heart disease Hypertension Social History Smoking Status: Former Smoker Drug Use: none Marital Status: Housing status: lives alone Occupational Status: retired Immunizations History of Influenza Vaccine: No History of Tetanus Vaccine?: utd History of Hepatitis B Vaccine: No Allergies Coded Allergies: Clonidine (Verified Allergy, Mild, SHORTNESS OF BREATH, 09/23/16) Iodinated Diagnostic Agents (Verified Allergy, Unknown, "IT JUST AFFECTS ME AND I CAN'T EXPLAIN IT", 09/23/16) Latex1 -Allergic Contact Dermititis (Verified Allergy, Unknown, RASH, ) Penicillins (Verified Allergy, Unknown, UNKNOWN, 09/23/16) Sulfa Antibiotics (Verified Allergy, Unknown, "SWELLING IN MOUTH AND DRIED OUT", 09/23/16) Home Medications Scheduled Budesonide/Formoterol Fumarate (Symbicort 80/4.5 Inhaler), 2 PUFFS PO BID Carboxymethylcellulose-Glyceri (Refresh Optive Advanced), 1 DROP OPB HS Diltiazem Hcl Ext Rel (Tiazac), 360 MG PO QAM Ergocalciferol (Vitamin D), 50,000 UNITS PO WK Hydrochlorothiazide (Hydrochlorothiazide), 1 TAB PO HS Levothyroxine Sodium (Levothyroxine Sodium), 75 MCG PO QAM Magnesium Chloride (Slow-Mag Tab), 64 MG PO QAM Multivitamin (Multivitamin), 1 TAB PO QAM Olmesartan Medoxomil (Benicar), 40 MG PO QPM Oxygen (Oxygen), 3-4 LITERS NA HS Rivaroxaban (Xarelto), 15 MG PO QPM Sennosides-Docusate Sodium (Stool Softener), 1 TAB PO BID Travoprost (Travatan Z), 1 DROPS OPB HS Scheduled PRN Furosemide (Lasix), 20 MG PO DAILY PRN for WEIGHT GAIN Ipratropium [place] (Ipratropium [place]), 0.5 MG NEB Q6H PRN for Shortness of Breath Levalbuterol (Levalbuterol HCl), 0.63 MG NEB Q6H PRN for Shortness of Breath Potassium Chloride (Micro-K Ext Rel), 10 MEQ PO DAILY PRN for WITH LASIX Physical Exam Vital Signs Date Time Temp Pulse Resp B/P Pulse Ox O2 Delivery O2 Flow Rate FiO2 09/23/16 18:35 96 128/62 97 Nasal Cannula 3.0 09/23/16 18:34 130/68 09/23/16 18:33 /72 09/23/16 18:30 69/56 09/23/16 18:28 121/70 09/23/16 18:20 90 24 91 09/23/16 18:10 90/74 09/23/16 18:00 113/58 09/23/16 17:50 114 34 120/74 09/23/16 17:40 123/50 09/23/16 17:30 128/70 09/23/16 17:20 100 29 123/74 100 09/23/16 17:10 138/60 09/23/16 17:07 133/71 09/23/16 16:55 110/74 09/23/16 16:54 110 18 110/74 99 Room Air 09/23/16 16:50 127 23 98 09/23/16 16:29 105 28 96 Nasal Cannula 3.0 09/23/16 16:20 121 24 09/23/16 16:02 98 Nasal Cannula 3.0 09/23/16 15:50 125 23 09/23/16 15:37 98 Nasal Cannula 3.0 09/23/16 15:37 99 Nasal Cannula 3.0 09/23/16 15:32 137 09/23/16 15:27 36.9 151 28 141/77 86 Room Air 09/23/16 15:26 141/77 Diagnostics Laboratory Results Results Past 24 Hours Test 09/23/16 16:40 09/23/16 16:51 Range/Units White Blood Count 15.95 4.8-10.8 K/uL Red Blood Count 3.82 4.2-5.4 M/uL Hemoglobin 11.9 12.0-16.0 g/dL Hematocrit 35.0 37-47 % Mean Corpuscular Volume 91.6 80-100 fL Mean Corpuscular Hemoglobin 31.2 25-34 pg Mean Corpuscular Hemoglobin Concent 34.0 32-36 g/dl Platelet Count 230 130-400 K/uL Mean Platelet Volume 10.4 7.4-10.4 fL Neutrophils (%) (Auto) 91.3 % Lymphocytes (%) (Auto) 5.2 % Monocytes (%) (Auto) 3.0 % Eosinophils (%) (Auto) 0.1 % Basophils (%) (Auto) 0.1 % Neutrophils # (Auto) 14.56 1.4-6.5 K/uL Lymphocytes # (Auto) 0.83 1.2-3.4 K/uL Monocytes # (Auto) 0.48 0.11-0.59 K/uL Eosinophils # (Auto) 0.01 0-0.5 K/uL Basophils # (Auto) 0.02 0-0.2 K/uL RDW Standard Deviation 42.6 36.4-46.3 fL RDW Coefficient of Variation 12.6 11.5-14.5 % Immature Granulocyte % (Auto) 0.3 % Immature Granulocyte # (Auto) 0.05 0.00-0.02 K/uL Prothrombin Time 11.7 9.0-12.0 SECONDS Prothromb Time International Ratio 1.1 0.9-1.1 Activated Partial Thromboplast Time 29.9 21.0-31.0 SECONDS Partial Thromboplastin Ratio 1.2 Sodium Level 135 136-145 mmol/L Potassium Level 3.6 3.5-5.1 mmol/L Chloride Level 99 98-107 mmol/L Carbon Dioxide Level 27 21-32 mmol/L Anion Gap 9.0 3-11 mmol/L Blood Urea Nitrogen 13 7-18 mg/dl Creatinine 0.59 0.60-1.20 mg/dl Est Creatinine Clear Calc Drug Dose 57.5 ml/min Estimated GFR () 96.9 Estimated GFR (Non- 83.6 BUN/Creatinine Ratio 22.5 10-20 Random Glucose 124 70-99 mg/dl Calcium Level 8.4 8.5-10.1 mg/dl Magnesium Level 1.9 1.8-2.4 mg/dl Total Bilirubin 0.8 0.2-1 mg/dl Aspartate Amino Transf (AST/SGOT) 12 15-37 U/L Alanine Aminotransferase (ALT/SGPT) 17 12-78 U/L Alkaline Phosphatase 60 45-117 U/L Troponin I < 0.015 0-0.045 ng/ml C-Reactive Protein 6.01 0-0.29 mg/dl Total Protein 6.8 6.4-8.2 gm/dl Albumin 3.5 3.4-5.0 gm/dl Globulin 3.3 2.5-4.0 gm/dl Albumin/Globulin Ratio 1.1 0.9-2 Thyroid Stimulating Hormone (TSH) 0.066 0.300-4.500 uIu/ml Free Thyroxine 1.51 0.80-1.60 ng/dl Microbiology Results 09/23/16 Blood Culture, Received Pending 09/23/16 Blood Culture, Received Pending Impression Assessment and Plan admit #[id number] for readmission review purposes, this appears to be an entirely separate diagnosis from her previous hospital stay. VTE Prophylaxis VTE Risk Assessment Done? Y/N: Yes Risk Level: Moderate
[2016-09-23 19:14] LABS: INFLUENZA A PCR Neg for Influ A (NEG); INFLUENZA B PCR Neg for Influ B (NEG)
[2016-09-23] MEDS ORDERED: POTASSIUM CHLORIDE 10 MEQ TABCR PO STA (19:31)
[2016-09-23 20:16] VITALS: BP 142/80; PULSE 119; TEMP 37.6; O2SAT 93; Ht 154.9 cm; Wt 56.0 kg
[2016-09-23] MEDS ORDERED: MAGNESIUM SULFATE 1GM / D5W 1 GM in PREMIXED IN D5W 100 ML IV ONE (20:30)
[2016-09-23] MEDS: BUDESONIDE/FORMOTEROL FUMARATE 80/4.5 60 PUFFS/INHALER INH SCH (20:48)
[2016-09-23] MEDS: TRAVOPROST Z 0.004% OPH SOLN 2.5 ML BTL OPB SCH (20:58)
[2016-09-23] MEDS: DOCUSATE SODIUM/SENNA 50/8.6MG TAB PO SCH (21:00)
[2016-09-23] MEDS ORDERED: LORAZEPAM INJ 0.5 MG in SYRINGE 0.75 ML IV PRN (21:00)
[2016-09-23] MEDS ORDERED: NURSING VERBAL MED ORDER ONE (21:00)
[2016-09-23] MEDS ORDERED: LORAZEPAM 2 MG/ML 1 ML VIAL ONE (21:01)
[2016-09-23] MEDS ORDERED: POTASSIUM CHLORIDE 10 MEQ TABCR PO ONE (21:30)
--- NOTE | 2016-09-23 21:56 | HISTORY & PHYSICAL EXAMINATION ---
DATE OF ADMISSION: 09/23/2016 CHIEF COMPLAINT: Shortness of breath. HISTORY OF PRESENT ILLNESS: The patient is an 86-year-old female, discharged from our facility about 2 weeks ago with new onset of A-Fib with RVR that appears to be causing her shortness of breath. She apparently has been at home for about the last 3 days or so, feeling progressively more short of breath as well as hot and cold, although she does not know if she has truly had a fever. She does not complain of cough, wheeze or purulent sputum, but rather just feeling progressively weaker and more short of breath. She notes right now she is really too weak to do anything. On review of records, she had been here with what appeared to be a COPD exacerbation, was seen by multiple specialties, was discharged home appearing stable, followed up with her PCP actually just 3 days ago, where it was noted that she appears to have finished her course of Levaquin, stopped the prednisone because of concern on leg swelling. Interestingly, at that point, while she did complain of a degree of shortness of breath, showed a pulse of 94, respiratory rate 16, blood pressure 110/62 and clear lungs did not appear in any distress. REVIEW OF SYSTEMS: Positive for stress in regards to her son having had her move to [employer] and then he moved to [place] followed by moving to [place]; so it seems like she feels relatively alone here. Review of systems is otherwise negative except for as above. PAST MEDICAL HISTORY: Includes; severe aortic stenosis, atrial fibrillation, chronic cerebral ischemia, COPD apparently very severe, recent pneumonia, demyelinating disorder, dyslipidemia, hypertension, hypothyroidism, laryngopharyngeal reflux, nocturnal hypoxia, osteoporosis, vitamin D deficiency and question of medication adherence and overuse. HOME MEDICATIONS: Noted to be Benicar 40 mg daily, artificial tears ophthalmic solution q. 2 hours p.r.n. dryness, diltiazem CD fairly recently increased to 360 mg daily, Lasix 20 mg p.r.n. more than 2 pounds of weight gain, hydrochlorothiazide 12.5 daily, DuoNeb or levalbuterol nebs, Synthroid 75 mcg daily, multivitamin daily, oxygen 3-4 liters at bedtime, potassium chloride 10 mEq b.i.d., Slow-Mag b.i.d., Symbicort 80/4.5 two puffs b.i.d., Travatan one drop both eyes, Ventolin q. 4 hours p.r.n. shortness of breath or wheeze, vitamin D 50,000 IU weekly on Sunday and Xarelto 15 mg daily. PAST SURGICAL HISTORY: Cataract surgery, diagnostic cystoscopy and a melanoma excision from her left leg in the . FAMILY HISTORY: Dad had an [place]. Brother had a stroke and cancer. SOCIAL HISTORY: She is a former smoker. She lives alone. No significant alcohol use. ALLERGIES: LISTED CLONIDINE, IODINATED DIAGNOSTIC AGENTS, LATEX, PENICILLIN AND SULFA. PHYSICAL EXAMINATION: VITAL SIGNS: Her initial vitals showed a temp of 36.9, pulse 151 respiratory rate 28, blood pressure 141/77, 86% on room air and then up to 96% on 3 liters. GENERAL: She is awake, alert, oriented x3, pleasant, very talkative in spite of a degree of conversational dyspnea and a mild degree of respiratory distress. HEENT: Normocephalic and atraumatic. Mucous membranes are moist. CARDIOVASCULAR: Tachycardic and irregularly irregular around 1/10 at the time of my exam. She has a systolic murmur heard diffusely, but is harsh and is consistent with her known severe aortic stenosis. LUNGS: Show diminished air entry and probably faint bibasilar rales. Overall, most significant for diminished air entry throughout. There are certainly no asymmetric findings. No wheezing. She is mildly tachypneic and using accessory muscles. ABDOMEN: Soft, nondistended and nontender. No masses or organomegaly. EXTREMITIES: Without cyanosis, clubbing or edema. No calf tenderness. SKIN: Shows no rashes. No pallor or icterus. NEUROLOGIC: Shows cranial nerves II-XII to be grossly intact. Gross motor and sensory are intact. MENTAL STATE: Finds her to be pleasantly anxious, talkative, fair recent and remote recall. MUSCULOSKELETAL: Yields no gross lesions. LABORATORIES AND DIAGNOSTICS: Her EKG shows A-Fib at about 140 with what appeared to be anterior lateral ischemic changes as far as ST depressions. The computer also points out inferior ischemic changes; all these seem to be less significant in the anterolateral, all are more pronounced certainly than her previous EKGs on last hospital stay. Her chest x-ray shows no notable infiltrate, maybe shows early interstitial edema. CBC shows a white count of 15.95, hemoglobin 11.9 and platelets of 230. Complete metabolic panel with sodium 135, potassium 3.6, chloride 99, CO2 27, BUN 13, creatinine 0.59, calcium 8.4, glucose 124, mag 1.9, total bili 0.8 with an AST of 12, ALT 17, alkaline phosphatase 60 and troponin of less than 0.015. Total protein 6.8, albumin 3.5. TSH was low at 0.066. Free T4; nearing upper limits of normal at 1.51. Flu swabs are pending. PT of 11.7 and PTT of 29.9. ASSESSMENT AND PLAN: 1. Acute hypoxic respiratory failure. This appears to be predominantly, if not entirely cardiac in etiology due to her rapid ventricular response and severe aortic stenosis causing some shortness of breath from what appears to be relative ischemia and some shortness of breath from diastolic congestive heart failure type pathology. 2. Atrial fibrillation with rapid ventricular response; she has longstanding atrial fibrillation. She is already anticoagulated on Xarelto. Of note, looking through prior notes from hospital and office, there is concern on her overusing her Synthroid as a weight loss agent and there is concern on her overusing inhalers and nebulizers, both of which certainly could provoke atrial fibrillation rapid ventricular response. We will start her on a diltiazem drip given that she is on diltiazem as an outpatient; if she does not respond to this or if she becomes hypotensive, we may need to change to something along the lines of an amiodarone drip, but at this point given that she is already on diltiazem, tolerates it well and seems to have adverse reactions both real and perceived to many medications, it is important to start with something that she certainly feels is safe and clinically is likely to be effective. She is already anticoagulated on Xarelto. Her TSH is slightly low, but free T4 is upper limits of normal begging the question certainly of extra Synthroid; would need to repeat a TSH in 3 or 4 weeks. Check an echocardiogram as it appears it has been long enough since that fresh data could be helpful and continue to follow her clinically. Supportive care and oxygen as well obviously. 3. Severe chronic obstructive pulmonary disease, continue her Symbicort, add Spiriva, continue as needed ipratropium and albuterol nebulizers; but try not to make them routine given the tachycardia that could even come from the levalbuterol. 4. Leukocytosis. She does not really show any active signs or symptoms of infection; it is possible from the recent steroid course, although that likely ended a little while ago and she seems to have ended it prematurely. She does not really show any signs or symptoms of active infection as much as signs and symptoms of diastolic congestive heart failure from atrial fibrillation. Her chest x-ray is clear. She is afebrile. She did have what she described as chills and sweats, but it sounded more like flushing that could easily have been cardiac in etiology. We will follow serial exams, follow up on her blood cultures and check a CRP and procalcitonin to try to delineate further, but we will hold off on further antibiotics until it is clear they are warranted, so as to avoid iatrogenic harm. 5. Hypertension. We will actually, other than the diltiazem, be holding her antihypertensives to allow for more room for rate controlling medications especially given that her blood pressures are borderline right now. 6. Mild anemia, follow. 7. Deep venous thrombosis prophylaxis, she is anticoagulated with Xarelto. 8. Hypocalcemia with prior vitamin D deficiency, repeat a D level. 9. Disposition; she will be admitted under the [facility] service to telemetry. 10. Hypothyroid; continue her Synthroid, especially given that her dosing will be given in a controlled environment, repeat a TSH in 3 or 4 weeks. 11. Overall weakness; physical therapy and occupational therapy evaluation, social service evaluation as far as if she needs a higher level of care. JOSELINE
[2016-09-23] MEDS: ARTIFICIAL TEARS OP SOLN OPB SCH ×2 (22:16)
[2016-09-23] MEDS: RIVAROXABAN TAB 15 MG TAB PO SCH (22:16)
[2016-09-23 23:30] VITALS: BP 144/76; PULSE 118; TEMP 38; O2SAT 97
[2016-09-23] MEDS: ACETAMINOPHEN 325 MG TAB PO PRN (23:47)
[2016-09-24] VITALS (15 sets, daily range): BP systolic 132–200; BP diastolic 78–125; PULSE 60–144; TEMP 36.4–36.7; O2SAT 90–99
[2016-09-24] MEDS: LEVOTHYROXINE 75 MCG TAB PO SCH (05:23)
[2016-09-24 06:19] LABS: BASO % 0.1 %; BASO ABS # 0.02 K/uL (0-0.2); COMPLETE YES; EOS % 0.4 %; HEMATOCRIT 31.3 % (37-47); IG% 0.2 %; LYMPH % 6.8 %; LYMPH ABS # 1.07 K/uL (1.2-3.4); MEAN CELL VOLUME 92.1 fL (80-100); MEAN CORPUSCULAR HEMOGLOBIN 30.9 pg (25-34); MEAN CORPUSCULAR HGB CONC 33.5 g/dl (32-36); MEAN PLATELET VOLUME 10.2 fL (7.4-10.4); MONO % 6.9 %; NEUT % 85.6 %; PLATELET COUNT 232 K/uL (130-400); WHITE BLOOD COUNT 15.69 K/uL (4.8-10.8)
[2016-09-24 06:38] LABS: BUN/CREATININE RATIO 27.6 (10-20); CALCIUM 8.1 mg/dl (8.5-10.1); CREATININE 0.54 mg/dl (0.60-1.20); MAGNESIUM 2.4 mg/dl (1.8-2.4); POTASSIUM 3.7 mmol/L (3.5-5.1)
[2016-09-24] MEDS: TIOTROPIUM BROMIDE 5 PUFF/90 MCG INH INH SCH (07:46)
[2016-09-24] MEDS: BUDESONIDE/FORMOTEROL FUMARATE 80/4.5 60 PUFFS/INHALER INH SCH ×2 (07:47→21:20)
[2016-09-24] MEDS: MAGNESIUM CHLORIDE 64MG DELAYED REL TAB PO SCH (07:48)
[2016-09-24] MEDS: DOCUSATE SODIUM/SENNA 50/8.6MG TAB PO SCH ×2 (07:48→21:22)
[2016-09-24] MEDS: MULTIVITAMIN TAB PO SCH (07:48)
[2016-09-24] MEDS: DILTIAZEM HCL INJ 125 MG in DEXTROSE 5% 100ML IV PRN (08:51)
[2016-09-24] MEDS: LEVALBUTEROL 0.63MG/3 ML NEB INH PRN ×2 (09:51→14:19)
[2016-09-24] MEDS: IPRATROPIUM BROMIDE NEB SOLN 0.02% 2.5 ML VIAL INH PRN ×2 (09:51→14:19)
[2016-09-24] MEDS ORDERED: PERFLUTREN LIPID MICROSPHERE (DEFINITY) IV ONE (10:57)
--- NOTE | 2016-09-24 11:47 | Family Medicine Progress Note ---
Progress Note Date of Service September 24, 2016. Subjective Pt evaluation today including: conversation w/ patient, physical exam, chart review, lab review, review of studies Pain: No pain reported this morning Voiding: no voiding problems Patient states she is breathing a little easier since admission. Her shortness of breath has improved and her palpitations have subsided. She denies any back pain, abdominal pain, chest pain, nausea, vomiting, diarrhea. Constitutional: No chills, No fatigue, No fever Respiratory: + shortness of breath, No cough, No wheezing Cardiovascular: No chest pain, No palpitations Abdomen: No constipation, No diarrhea, No nausea, No pain, No vomiting Female : No dysuria Medications Current Inpatient Medications Medications (Trade) Dose Ordered Sig/Yared Route Start Time Stop Time Status Last Admin Dose Admin Acetaminophen (Tylenol Tab) 650 mg Q4H PRN PO 09/23/16 18:15 10/23/16 18:14 09/23/16 23:47 650 MG Al Hydrox/Mg Hydrox/Simethicone (Maalox Max Susp) 15 ml Q4H PRN PO 09/23/16 18:15 10/23/16 18:14 Magnesium Hydroxide (Milk Of Magnesia Susp) 30 ml Q12H PRN PO 09/23/16 18:15 10/23/16 18:14 Ondansetron HCl (Zofran Inj) 4 mg Q6H PRN IV 09/23/16 18:15 10/23/16 18:14 Nitroglycerin (Nitrostat Tab) 0.4 mg UD PRN SL 09/23/16 18:15 10/23/16 18:14 Polyethylene (Miralax Powder Packet) 17 gm DAILY PRN PO 09/23/16 18:15 10/23/16 18:14 Budesonide/ Formoterol Fumarate (Symbicort 80/ 4.5 Inh) 2 puffs BID INH 09/23/16 21:00 10/23/16 20:59 09/24/16 07:47 2 PUFFS Ergocalciferol (Vitamin D Cap) 50,000 interunit We@0900 PO 09/27/16 09:00 10/27/16 08:59 Furosemide (Lasix Tab) 20 mg DAILY PRN PO 09/23/16 18:15 10/23/16 18:14 Ipratropium [place] (Atrovent 0.02% 0.5MG/2.5ML Neb) 0.5 mg Q6R PRN INH 09/23/16 18:15 10/23/16 18:14 09/24/16 09:51 0.5 MG Levalbuterol (Xopenex 0.63 Mg/ 3 Ml Neb) 0.63 mg Q6R PRN INH 09/23/16 18:15 10/23/16 18:14 09/24/16 09:51 0.63 MG Levothyroxine Sodium (Synthroid Tab) 75 mcg DAILYBB PO 09/24/16 06:00 10/24/16 06:59 09/24/16 05:23 75 MCG Magnesium Chloride (Slow-Mag Tab) 64 mg QAM PO 09/24/16 09:00 10/24/16 08:59 09/24/16 07:48 64 MG Multivitamins (Multivitamin Tab) 1 tab QAM PO 09/24/16 09:00 10/24/16 08:59 09/24/16 07:48 1 TAB Potassium Chloride (Klor-Con M10) 10 meq DAILY PRN PO 09/23/16 18:15 10/23/16 18:14 Rivaroxaban (Xarelto Tab) 15 mg QPM PO 09/23/16 21:00 10/23/16 20:59 09/23/16 22:16 15 MG Senna/Docusate Sodium (Senokot S Tab) 1 tab BID PO 09/23/16 21:00 10/23/16 20:59 09/24/16 07:48 1 TAB Travoprost (Travatan Z) 1 drops HS OPB 09/23/16 21:00 10/23/16 20:59 09/23/16 20:58 1 DROPS Artificial Tears (Artificial Tears) 1 drops HS OPB 09/23/16 21:00 10/23/16 20:59 09/23/16 22:16 1 DROPS Tiotropium [place] 1 puff 1 puff QAM INH 09/24/16 09:00 10/24/16 08:59 09/24/16 07:46 1 PUFF Diltiazem HCl 125 mg/Dextrose 125 ml @ 0 mls/hr Q0M PRN IV 09/23/16 20:30 10/23/16 20:29 09/24/16 08:51 5 MLS/HR Lorazepam/Syringe (Ativan Inj/ Syringe) 1 ml @ 1 mls/min Q6 PRN IV 09/23/16 21:00 10/23/16 20:59 Lorazepam (Ativan Inj) 0.5 mg Q6 PRN IV 09/23/16 21:15 10/23/16 21:14 Objective Vital Signs Date Time Temp Pulse Resp B/P Pulse Ox O2 Delivery O2 Flow Rate FiO2 09/24/16 09:51 60 26 98 Nasal Cannula 5.0 09/24/16 08:29 36.7 85 18 136/94 91 Nasal Cannula 09/24/16 08:00 96 Nasal Cannula 3.0 09/24/16 04:00 36.5 79 16 161/89 96 09/24/16 04:00 Nasal Cannula 3.0 09/23/16 23:59 Nasal Cannula 4.0 09/23/16 23:30 38.0 118 20 144/76 97 Nasal Cannula 4.0 09/23/16 20:16 37.6 119 32 142/80 93 Nasal Cannula 5.0 09/23/16 19:40 78 34 142/70 100 09/23/16 19:30 129/90 09/23/16 19:20 135/69 09/23/16 19:10 87 32 132/70 100 09/23/16 19:00 144/75 09/23/16 18:50 141/79 09/23/16 18:40 114 31 136/107 97 09/23/16 18:35 96 128/62 97 Nasal Cannula 3.0 09/23/16 18:34 130/68 09/23/16 18:33 /72 09/23/16 18:30 69/56 09/23/16 18:28 121/70 09/23/16 18:20 90 24 91 09/23/16 18:10 90/74 09/23/16 18:00 113/58 09/23/16 17:50 114 34 120/74 09/23/16 17:40 123/50 09/23/16 17:30 128/70 09/23/16 17:20 100 29 123/74 100 09/23/16 17:10 138/60 09/23/16 17:07 133/71 09/23/16 16:55 110/74 5/6/17 16:54 110 18 110/74 99 Room Air 09/23/16 16:50 127 23 98 09/23/16 16:29 105 28 96 Nasal Cannula 3.0 09/23/16 16:20 121 24 09/23/16 16:02 98 Nasal Cannula 3.0 09/23/16 15:50 125 23 09/23/16 15:37 98 Nasal Cannula 3.0 09/23/16 15:37 99 Nasal Cannula 3.0 09/23/16 15:32 137 09/23/16 15:27 36.9 151 28 141/77 86 Room Air 09/23/16 15:26 141/77 Physical Exam General Appearance: WD/WN, no apparent distress Eyes: normal inspection, sclerae normal ENT: pharynx normal Neck: supple, no carotid bruits Respiratory/Chest: chest non-tender, no respiratory distress, no accessory muscle use, + wheezing (Expiratory wheezing) Cardiovascular: no edema, no JVD, + systolic murmur, + irregularly irregular Abdomen: normal bowel sounds, non tender, soft Extremities: no pedal edema, no calf tenderness Laboratory Results Results Past 24 Hours Test 09/23/16 16:40 09/23/16 16:51 09/24/16 00:18 09/24/16 05:26 Range/Units White Blood Count 15.95 15.69 4.8-10.8 K/uL Red Blood Count 3.82 3.40 4.2-5.4 M/uL Hemoglobin 11.9 10.5 12.0-16.0 g/dL Hematocrit 35.0 31.3 37-47 % Mean Corpuscular Volume 91.6 92.1 80-100 fL Mean Corpuscular Hemoglobin 31.2 30.9 25-34 pg Mean Corpuscular Hemoglobin Concent 34.0 33.5 32-36 g/dl Platelet Count 230 232 130-400 K/uL Mean Platelet Volume 10.4 10.2 7.4-10.4 fL Neutrophils (%) (Auto) 91.3 85.6 % Lymphocytes (%) (Auto) 5.2 6.8 % Monocytes (%) (Auto) 3.0 6.9 % Eosinophils (%) (Auto) 0.1 0.4 % Basophils (%) (Auto) 0.1 0.1 % Neutrophils # (Auto) 14.56 13.42 1.4-6.5 K/uL Lymphocytes # (Auto) 0.83 1.07 1.2-3.4 K/uL Monocytes # (Auto) 0.48 1.08 0.11-0.59 K/uL Eosinophils # (Auto) 0.01 0.07 0-0.5 K/uL Basophils # (Auto) 0.02 0.02 0-0.2 K/uL RDW Standard Deviation 42.6 43.0 36.4-46.3 fL RDW Coefficient of Variation 12.6 12.7 11.5-14.5 % Immature Granulocyte % (Auto) 0.3 0.2 % Immature Granulocyte # (Auto) 0.05 0.03 0.00-0.02 K/uL Prothrombin Time 11.7 9.0-12.0 SECONDS Prothromb Time International Ratio 1.1 0.9-1.1 Activated Partial Thromboplast Time 29.9 21.0-31.0 SECONDS Partial Thromboplastin Ratio 1.2 Sodium Level 135 136 136-145 mmol/L Potassium Level 3.6 3.7 3.5-5.1 mmol/L Chloride Level 99 101 98-107 mmol/L Carbon Dioxide Level 27 28 21-32 mmol/L Anion Gap 9.0 7.0 3-11 mmol/L Blood Urea Nitrogen 13 15 7-18 mg/dl Creatinine 0.59 0.54 0.60-1.20 mg/dl Est Creatinine Clear Calc Drug Dose 57.5 57.4 ml/min Estimated GFR () 96.9 99.7 Estimated GFR (Non- 83.6 86.0 BUN/Creatinine Ratio 22.5 27.6 10-20 Random Glucose 124 118 70-99 mg/dl Calcium Level 8.4 8.1 8.5-10.1 mg/dl Magnesium Level 1.9 2.4 1.8-2.4 mg/dl Total Bilirubin 0.8 0.2-1 mg/dl Aspartate Amino Transf (AST/SGOT) 12 15-37 U/L Alanine Aminotransferase (ALT/SGPT) 17 12-78 U/L Alkaline Phosphatase 60 45-117 U/L Troponin I < 0.015 0.017 0-0.045 ng/ml C-Reactive Protein 6.01 0-0.29 mg/dl Total Protein 6.8 6.4-8.2 gm/dl Albumin 3.5 3.4-5.0 gm/dl Globulin 3.3 2.5-4.0 gm/dl Albumin/Globulin Ratio 1.1 0.9-2 Procalcitonin 0.06 0-0.5 ng/ml Thyroid Stimulating Hormone (TSH) 0.066 0.300-4.500 uIu/ml Free Thyroxine 1.51 0.80-1.60 ng/dl Influenza Type A (RT-PCR) Neg for Influ A NEG Influenza Type B (RT-PCR) Neg for Influ B NEG 25-Hydroxy Vitamin D Total 78.8 30-100 ng/ml Test 09/24/16 08:23 Range/Units Troponin I < 0.015 0-0.045 ng/ml Microbiology Results 09/23/16 Blood Culture, Received Pending 09/23/16 Blood Culture, Received Pending Assessment and Plan Patient is an 86 year old female with a past medical history of COPD, Severe Aortic Stenosis, Atrial Fibrillation, and Hypothyroidism that presents with shortness of breath 1) Acute Hypoxic Respiratory Failure - shortness of breath improving - Secondary to combination of Atrial Fibrillation, Severe Aortic Stenosis, and some component of Diastolic Heart Failure - CXR on admission: Early interstitial edema - Previous ECHO 08/02/15 - LVEF > 70% - Severe aortic stenosis with calculated BINA 0.5cm2, mild aortic regurgitation - Moderate to severe mitral annular calcification with mild mitral regurgitation - Grade I diastolic dysfunction - ECHO ordered - 96% on 3L NC - Has home oxygen 2) Atrial Fibrillation with RVR - Currently rate controlled - Received Diltiazem drip on admission with bolus - Convert to oral Diltiazem from drip this morning - History of chronic afib with home Diltiazem 360mg and Xarelto - ECHO performed this morning - TSH low with upper normal FT4, history of taking excess Synthroid for weight loss 3) COPD - Shortness of breath improving - Symbicort 2 puff BID - Duoneb at bedside this morning - Xopenex and Atrovent PRN - Spiriva 1 puff qAM 4) Leukocytosis - Possibly secondary to steroid use after previous admission - WBC on previous admission 09/11 was 7.23 - Continue to monitor - Afebrile, Blood Cultures Pending, Chest Xray shows no infiltrates 5) Hypertension - Currently holding antihypertensive home medications (Benicar and HCTZ) while attempting to control rate 6) Hypothyroidism - Synthroid 75mcg - Low TSH on admission - Monitor TSH as outpatient - Patient possibly taking extra doses of Synthroid for weight loss 7) PT/OT - Awaiting assessment 8) DVT Prophylaxis - Xarelto Reviewed: Pt Seen/Exam by Me History visited early this am and then again very short of breath since last night. feeling a little better since admission later called by nursing due to patient continuing to have trouble breathing and becoming hypoxic Constitutional: denies: fever Cardiovascular: denies chest pain Gastrointestinal/Abdominal: negative: abdominal pain General Appearance: moderate distress Respiratory: decreased breath sounds, wheezing Cardiovascular: irregularly irregular Gastrointestinal: normal bowel sounds, non tender, soft Neurologic/Psychiatric: alert, oriented x 3 Skin Characteristics: warm/dry Assessment/Plan I have reviewed the medical record and performed a history and physical examination of this patient today. I have discussed the case with Dr Kat. The above note reflects my findings, conclusions, and recommendations with the following additions. Echo reviewed - severe pulmonary hypertension, moderate tricuspid regurgitation , severe sclerotic aortic stenosis. Normal EF Elevated pul artery pressure likely worse due to to fast heart rate with underlying severe copd. BMP with normal bicarb. Though respiratory failure hypoxic copd exacerbation also likely contributing to worsening of symptoms along with RVR leading to CHF. Will add steroids. Bipap. Neb treatment IV lopressor 5mgs now to control BP and HR. Spent 35 min of critical care time. Son updated with condition - His cell/preferred no - [phone]
[2016-09-24] MEDS: LORAZEPAM 2 MG/ML 1 ML VIAL IV PRN (12:26)
--- NOTE | 2016-09-24 13:34 | ECHOCARDIOGRAM REPORT ---
*NOTICE TO RECEIVING CONSTITUTION PARTY AGENCY This information is strictly Confidential and protected under [place] law. [place] law prohibits you from making any further disclosure of this information unless further disclosure is expressly permitted by the written consent of the person to whom it pertains or is authorized by law. A general authorization for the release of medical or other information is not sufficient for this purpose. Hospital accepts no responsibility if the information is made available to any other person, INCLUDING THE PATIENT. Interpretation Summary * Name: FLAVIA MORENO Study Date: 09/24/2016 10:24 AM BP: 161/89 mmHg * Patient Location: C.2E\S\E207\S\1 HR: 79 * : 1930 (M/d/yyyy) Gender: Female Height: 61 in * Age: 86 yrs Ethnicity: [place] Weight: 129 lb * Ordering Physician: Nas Adler * Referring Physician: Self, Referred * Performed By: Lee Franco RDCS * * Reason For Study: A-fib * BSA: 1.6 m2 * Hyperdynamic left ventricular systolic function. * Moderate concentric left ventricular hypertrophy. * Severe calcific aortic stenosis. * Mild aortic regurgitation. * Mild mitral regurgitation. * Mild - moderate tricuspid regurgitation. * Severe pulmonary hypertension. * Compared to an echocardiogram of 08/02/2015, severe pulmonary hypertension is now present. * No significant change in the LV systolic function or severity of the aortic stenosis. * -- Conclusions -- * There is severe calcific aortic valve stenosis. Procedure Details * A complete two-dimensional transthoracic echocardiogram was performed (2D, M-mode, Doppler and color flow Doppler). * The study was technically difficult. * The study was technically limited. * There were technical limitations due to patient'sPoor acoustic windows secondary to severe lung disease. * A contrast injection of Definity was performed to improve assessment of LV function. * Contrast was injected into an intravenous site in the left arm. * One vial of Definity ultrasound contrast was diluted in normal saline to a total volume of 10 ml. A total of '3' ml of solution was administered during imaging. * Lot # [id number] of Definity utilized for procedure. * Expiration date 1APR18. * The attending nurse who injected the contrast agent was LUBA Bae. Left Ventricle * The left ventricle is normal in size. * There is moderate concentric left ventricular hypertrophy. * The left ventricle is hyperdynamic. * Ejection Fraction = >70 %. * No regional wall motion abnormalities noted. Right Ventricle * The right ventricle is not well visualized. * The right ventricle is normal in size and function. Atria * The left atrial size is normal. * Right atrium not well visualized. Mitral Valve * There is moderate mitral annular calcification. * Mitral stenosis is absent. * There is mild mitral regurgitation. Tricuspid Valve * The tricuspid valve is not well visualized. * There is no tricuspid stenosis. * Right ventricular systolic pressure is elevated at >60mmHg. * There is mild to moderate tricuspid regurgitation. Aortic Valve * There is severe calcific aortic valve stenosis. * Aortic valve area was calculated at 0.43 cm\S\2 using the continuity equation. * Mild aortic regurgitation. Pulmonic Valve * The pulmonary valve is inadequately visualized, but the Doppler data is adequate for interpretation. * There is no pulmonic valvular stenosis. * There is no significant pulmonary regurgitation. Great Vessels * The aortic root is normal size. * The inferior vena cava is mildly dilated. MMode 2D Measurements and Calculations IVSd 1.5 cm IVSs 1.8 cm LVIDd 3.7 cm LVIDs 2.1 cm LVPWd 1.5 cm LVPWs 1.7 cm IVS/LVPW 0.96 FS 42.2 % EDV(Teich) 58.6 ml ESV(Teich) 15.2 ml EF(Teich) 74.0 % EDV(cubed) 51.1 ml ESV(cubed) 9.9 ml EF(cubed) 80.7 % % IVS thick 20.9 % % LVPW thick 13.6 % LV mass(C)d 207.4 grams LV mass(C)dI 132.3 grams/m\S\2 LV mass(C)s 141.5 grams LV mass(C)sI 90.2 grams/m\S\2 SV(Teich) 43.4 ml SI(Teich) 27.7 ml/m\S\2 SV(cubed) 41.3 ml SI(cubed) 26.3 ml/m\S\2 EPSS 0.58 cm Ao root diam 2.8 cm Ao root area 6.0 cm\S\2 ACS 0.81 cm LA dimension 3.4 cm LA/Ao 1.2 LVOT diam 1.7 cm LVOT area 2.2 cm\S\2 LVAd ap4 23.8 cm\S\2 LVLd ap4 6.8 cm EDV(MOD-sp4) 69.0 ml LVAs ap4 15.2 cm\S\2 LVLs ap4 6.5 cm ESV(MOD-sp4) 28.0 ml EF(MOD-sp4) 59.4 % LVAd ap2 16.8 cm\S\2 LVLd ap2 5.6 cm EDV(MOD-sp2) 41.0 ml LVAs ap2 9.8 cm\S\2 LVLs ap2 4.6 cm ESV(MOD-sp2) 17.0 ml EF(MOD-sp2) 58.5 % SV(MOD-sp4) 41.0 ml SI(MOD-sp4) 26.1 ml/m\S\2 SV(MOD-sp2) 24.0 ml SI(MOD-sp2) 15.3 ml/m\S\2 Doppler Measurements and Calculations MV E max tomas 120.9 cm/sec MV dec time 0.17 sec Ao V2 max 429.4 cm/sec Ao max PG 74.0 mmHg Ao max PG (full) 71.1 mmHg Ao V2 mean 321.3 cm/sec Ao mean PG 47.2 mmHg Ao mean PG (full) 45.6 mmHg Ao V2 VTI 107.5 cm BINA(I,A) 0.35 cm\S\2 BINA(I,D) 0.35 cm\S\2 BINA(V,A) 0.43 cm\S\2 BINA(V,D) 0.43 cm\S\2 LV V1 max PG 2.8 mmHg LV V1 mean PG 1.6 mmHg LV V1 max 84.4 cm/sec LV V1 mean 59.6 cm/sec LV V1 VTI 17.0 cm SV(Ao) 650.5 ml SI(Ao) 414.9 ml/m\S\2 SV(LVOT) 37.4 ml SI(LVOT) 23.9 ml/m\S\2 PA V2 max 151.3 cm/sec PA max PG 9.2 mmHg TR max tomas 407.6 cm/sec
[2016-09-24] MEDS ORDERED: METOPROLOL TARTRATE 1 MG/ML VIAL IV STA (14:55)
[2016-09-24] MEDS ORDERED: METOPROLOL TARTRATE 1 MG/ML VIAL ONE (15:05)
[2016-09-24] MEDS: METHYLPREDNISOLONE IV 40 MG in SYRINGE 0 ML IV SCH ×2 (16:05→21:25)
[2016-09-24 18:54] LABS: MANUAL MICROSCOPIC REQUIRED? NO; REVIEW REQ? NO; URINE APPEARANCE CLEAR (CLEAR); URINE BILIRUBIN NEG (NEG); URINE COLOR DK YELLOW; URINE EPITHELIAL CELL AUTO >30 /lpf (0-5); URINE NITRITE NEG (NEG); URINE SPECIFIC GRAVITY 1.021 (1.000-1.030); UROBILINOGEN NEG (NEG); ZZUR CULT IF INDIC CLEAN CATCH NO
[2016-09-24] MEDS: ARTIFICIAL TEARS OP SOLN OPB SCH ×2 (21:23)
[2016-09-24] MEDS: RIVAROXABAN TAB 15 MG TAB PO SCH (21:23)
[2016-09-24] MEDS: TRAVOPROST Z 0.004% OPH SOLN 2.5 ML BTL OPB SCH (21:25)
[2016-09-25] VITALS (10 sets, daily range): BP systolic 121–162; BP diastolic 62–106; PULSE 72–93; TEMP 36.2–36.8; O2SAT 93–99
[2016-09-25] MEDS: DILTIAZEM HCL INJ 125 MG in DEXTROSE 5% 100ML IV PRN (00:47)
[2016-09-25] MEDS: METHYLPREDNISOLONE IV 40 MG in SYRINGE 0 ML IV SCH ×4 (04:33→21:13)
[2016-09-25] MEDS: LEVOTHYROXINE 75 MCG TAB PO SCH (05:22)
[2016-09-25] MEDS: LORAZEPAM 2 MG/ML 1 ML VIAL IV PRN (05:26)
[2016-09-25 06:32] LABS: BUN/CREATININE RATIO 40.3 (10-20); CALCIUM 8.3 mg/dl (8.5-10.1); CREATININE 0.45 mg/dl (0.60-1.20); POTASSIUM 4.1 mmol/L (3.5-5.1)
--- NOTE | 2016-09-25 07:49 | Family Medicine Progress Note ---
Progress Note Date of Service September 25, 2016. Subjective Pt evaluation today including: conversation w/ patient, physical exam, chart review, lab review Patient says that BIPAP is helping her breath, and that without it, she feels very short of breath. She is otherwise complaining of palpitations, chest discomfort, nausea, leg pain, poor appetite. She says these symptoms have neither improved or worsened since admission. She is otherwise very talkative and alert and responding appropriately. Constitutional: No chills, No fever Respiratory: + shortness of breath Cardiovascular: + chest pain, + palpitations Abdomen: + nausea, + pain Objective Vital Signs Date Time Temp Pulse Resp B/P Pulse Ox O2 Delivery O2 Flow Rate FiO2 09/25/16 04:00 94 BiPAP 40 09/25/16 03:54 36.6 83 20 127/106 94 BiPAP 09/25/16 03:06 80 98 40 09/24/16 23:59 BiPAP 40 09/24/16 23:29 36.6 92 20 140/85 98 BiPAP 09/24/16 20:13 87 98 50 09/24/16 20:00 BiPAP 40 09/24/16 19:46 36.4 108 18 160/98 98 BiPAP 09/24/16 16:15 85 137/78 09/24/16 16:00 93 BiPAP 50 09/24/16 15:59 36.5 94 20 132/89 99 BiPAP 09/24/16 15:07 124 09/24/16 14:30 144 44 200/125 94 BiPAP 09/24/16 14:20 85 97 60 09/24/16 14:19 60 26 98 BiPAP/CPAP 60 09/24/16 12:05 36.7 109 20 139/85 90 Nasal Cannula 4.0 09/24/16 12:04 96 Nasal Cannula 3.0 09/24/16 09:51 60 26 98 Nasal Cannula 5.0 09/24/16 08:29 36.7 85 18 136/94 91 Nasal Cannula 09/24/16 08:00 96 Nasal Cannula 3.0 Physical Exam General Appearance: WD/WN, + mild distress, + thin ENT: + pertinent finding (Uses hearing aid and bipap mask in situ) Neck: supple Respiratory/Chest: + decreased breath sounds, + rales Cardiovascular: regular rate, rhythm, + diastolic murmur, + systolic murmur Abdomen: normal bowel sounds, soft, + tenderness Extremities: no pedal edema, no calf tenderness Neurologic/Psychiatric: alert Skin: normal color, warm/dry, no rash Laboratory Results Results Past 24 Hours Test 09/25/16 05:37 09/25/16 16:15 Range/Units White Blood Count 9.50 4.8-10.8 K/uL Red Blood Count 4.03 4.2-5.4 M/uL Hemoglobin 12.6 12.0-16.0 g/dL Hematocrit 36.8 37-47 % Mean Corpuscular Volume 91.3 80-100 fL Mean Corpuscular Hemoglobin 31.3 25-34 pg Mean Corpuscular Hemoglobin Concent 34.2 32-36 g/dl Platelet Count 245 130-400 K/uL Mean Platelet Volume 10.8 7.4-10.4 fL Neutrophils (%) (Auto) 94.1 % Lymphocytes (%) (Auto) 4.3 % Monocytes (%) (Auto) 1.2 % Eosinophils (%) (Auto) 0.0 % Basophils (%) (Auto) 0.0 % Neutrophils # (Auto) 8.94 1.4-6.5 K/uL Lymphocytes # (Auto) 0.41 1.2-3.4 K/uL Monocytes # (Auto) 0.11 0.11-0.59 K/uL Eosinophils # (Auto) 0.00 0-0.5 K/uL Basophils # (Auto) 0.00 0-0.2 K/uL RDW Standard Deviation 42.2 36.4-46.3 fL RDW Coefficient of Variation 12.5 11.5-14.5 % Immature Granulocyte % (Auto) 0.4 % Immature Granulocyte # (Auto) 0.04 0.00-0.02 K/uL Sodium Level 133 136-145 mmol/L Potassium Level 4.1 3.5-5.1 mmol/L Chloride Level 99 98-107 mmol/L Carbon Dioxide Level 25 21-32 mmol/L Anion Gap 9.0 3-11 mmol/L Blood Urea Nitrogen 18 7-18 mg/dl Creatinine 0.45 0.60-1.20 mg/dl Est Creatinine Clear Calc Drug Dose 68.9 ml/min Estimated GFR () 105.9 Estimated GFR (Non- 91.4 BUN/Creatinine Ratio 40.3 10-20 Random Glucose 158 70-99 mg/dl Calcium Level 8.3 8.5-10.1 mg/dl Urine Color DK YELLOW Urine Appearance CLEAR CLEAR Urine pH 6.0 4.5-7.5 Urine Specific Lorida 1.019 1.000-1.030 Urine Protein 1+ NEG Urine Glucose (UA) NEG NEG Urine Ketones 1+ NEG Urine Occult Blood 1+ NEG Urine Nitrite NEG NEG Urine Bilirubin NEG NEG Urine Urobilinogen NEG NEG Urine Leukocyte Esterase NEG NEG Urine WBC (Auto) 1-5 0-5 /hpf Urine RBC (Auto) 5-10 0-4 /hpf Urine Hyaline Casts (Auto) 1-5 0-5 /lpf Urine Epithelial Cells (Auto) 20-30 0-5 /lpf Urine Bacteria (Auto) NEG NEG Assessment and Plan 86 year old female with a past medical history of COPD, Severe Aortic Stenosis, Atrial Fibrillation, and Hypothyroidism that presents with shortness of breath Acute Hypoxic Respiratory Failure - Secondary to combination of atrial fibrillation, severe aortic stenosis, and some component of diastolic heart failure. CXR on admission showed early interstitial edema. Previous ECHO showed LVEF > 70%, severe aortic stenosis with calculated BINA 0.5cm2, mild aortic regurgitation, moderate to severe mitral annular calcification with mild mitral regurgitation, grade I diastolic dysfunction. Recent ECHO shows new pulmonary HTN. Cardiology and pulmonology consulted - recs appreciated. Symptoms currently stable. - Continue Bipap - Referral for TAVR Atrial Fibrillation with RVR - Currently rate controlled. Received Diltiazem drip on admission with bolus, then switched to PO. TSH low with upper normal FT4 , history of taking excess Synthroid for weight loss - Po Diltiazem 60mg - Xarelto 15mg qPM COPD - Shortness of breath improving - Symbicort 2 puff BID - Duoneb - Xopenex and Atrovent PRN - Spiriva 1 puff qAM Leukocytosis - Possibly secondary to steroid use after previous admission. WBC on admission 15.95, now WNL. Afebrile, Blood Cultures negative, Chest Xray shows no infiltrates - Continue to monitor Hematuria - UA positive for RBC. 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 Extensive work up has already been done. Hypertension - Benicar and HCTZ held in view of previous hypotension - Lasix 20mg Hypothyroidism - Low TSH on admission. Patient possibly taking extra doses of Synthroid for weight loss - Synthroid 75mcg - Monitor TSH as outpatient DVT Prophylaxis - Xarelto Continued [facility] stay due to: multiple IV medications needed Discharge planning: home Resident Tracking Resident Involvement: Resident Care Provided Care Provided: Adult Hospital Medicine Reviewed: Pt Seen/Exam by Me History Resident Physician Supervision Note: I interviewed and examined the patient. Discussed with Dr. Hernandez and agree with findings and plan as documented in the note. Any exceptions or clarifications are listed here: Pt still very SOB, off BiPAP currently and has moments of desaturation. Wants her ECHO report to send to [facility] for TAVR eval. Tele A-fib with rates in 90s, vitals reviewed Mild resp distress, but very talkative, racing thoughts irreg irreg with mild tachycardia decreased BS throughout with occasional wheezes Ext no edema, no calf tenderness, sarcopenia SKin no rashes 86 yo female with severe , acute on chronic hypoxemic resp failure, severe COPD, acute on chronic diastolic CHF. -restart lasix as CXR now with worsening pulm edema -send ECHO report to [facility] in [facility] to see if would be willing to see her probably as outpt vs direct transfer? -continue BiPAP prn -APpreciate Cardiology and Pulm consults -continue steroids IV and taper down -continue supportive care for severe anxiety, but with some paranoia as well--> consider Psychiatry consult Documented By: Greta Prasad
[2016-09-25 08:33] LABS: COMPLETE YES; HEMATOCRIT 36.8 % (37-47); IG% 0.4 %; LYMPH % 4.3 %; LYMPH ABS # 0.41 K/uL (1.2-3.4); MEAN CELL VOLUME 91.3 fL (80-100); MEAN CORPUSCULAR HEMOGLOBIN 31.3 pg (25-34); MEAN CORPUSCULAR HGB CONC 34.2 g/dl (32-36); MEAN PLATELET VOLUME 10.8 fL (7.4-10.4); MONO % 1.2 %; NEUT % 94.1 %; PLATELET COUNT 245 K/uL (130-400); RED BLOOD COUNT 4.03 M/uL (4.2-5.4)
[2016-09-25] MEDS: DOCUSATE SODIUM/SENNA 50/8.6MG TAB PO SCH ×2 (08:35→21:13)
[2016-09-25] MEDS: BUDESONIDE/FORMOTEROL FUMARATE 80/4.5 60 PUFFS/INHALER INH SCH ×2 (08:35→21:13)
[2016-09-25] MEDS: MAGNESIUM CHLORIDE 64MG DELAYED REL TAB PO SCH (08:35)
[2016-09-25] MEDS: MULTIVITAMIN TAB PO SCH (08:35)
[2016-09-25] MEDS: TIOTROPIUM BROMIDE 5 PUFF/90 MCG INH INH SCH (08:35)
[2016-09-25] MEDS: DILTIAZEM HCL 60 MG TAB PO SCH ×3 (11:41→21:13)
--- NOTE | 2016-09-25 12:59 | DIAGNOSTIC IMAGING REPORT ---
CHEST ONE VIEW PORTABLE HISTORY: Cough. PNEUMONIA? COMPARISON: Chest 09/23/2016. FINDINGS: No pneumothorax. Small bilateral pleural effusions and hazy bibasilar densities have slightly progressed. Mild diffuse interstitial thickening is also slightly progressed. The heart remains top normal in size. IMPRESSION: 1. Interval progression of the interstitial thickening and small bilateral pleural effusions. This favors pulmonary edema. 3. There is also progression of the bibasilar hazy densities which may represent the layering pleural fluid. However, a superimposed pneumonitis could also have a similar appearance. Electronically signed by: Barrera Gutiérrez M.D. 09/25/2016 12:57 PM Dictated Date/Time: 09/25/2016 12:56 PM
--- NOTE | 2016-09-25 14:20 | Cardiology Consultation ---
Cardiology Consultation Date of Consultation: September 25, 2016. Requesting Physician: Dr. Benitez Reason for Consultation: Shortness of breath, atrial fibrillation Pt evaluation today including: conversation w/ patient, physical exam, lab review, review of studies, review of inpatient medication list History of Present Illness This is an 86-year-old woman who has a history of permanent atrial fibrillation as well as long-standing aortic stenosis. She also has long-standing lung disease. She has been having difficulty with worsening shortness of breath recently, she was seen as an outpatient on 09/04/2016 where she was very short of breath and had an elevated heart rate, at that time her diltiazem was increased. She then presented as an outpatient again with worsening shortness of breath and was felt to have pneumonia and was admitted for atrial fibrillation and pneumonia on 09/07/2016. her heart rate improved with medical therapy however she continued to be quite short of breath. A discussion was undertaken regarding valve replacement, she was also seen by palliative care. Based on notes it seems that she would consider a TAVR valve replacement. Ultimately she was discharged on 09/12/2016 on increased diltiazem (360 mg daily ) with plans to pursue possible valve replacement at [facility]. She presented the next day to the ER, but clinically was unchanged and she was not admitted. She now presents once again on 09/23/2016 short of breath with a rapid heart rate, although she may have some element of heart failure she was not in pulmonary edema, and her weight was not significantly elevated from her last admission. An echocardiogram done on 09/24/2016 shows a normal size left ventricle with moderate left ventricular hypertrophy, a hyperdynamic left ventricle with ejection fraction of greater than 70%, severe pulmonary hypertension and severe aortic stenosis with a valve area of less than 0.5 cm. At the time of my evaluation she is on BiPAP, she can speak although she is little hard to understand due to the mask. She does not appear to be appreciably short of breath on BiPAP. She denies chest discomfort, does admit to shortness of breath. She does not seem to be aware of palpitations. Past Medical/Surgical History (1) Disorder of gallbladder (2) Kidney disease (3) Recurrent falls (4) Dyspnea (5) Atrial fibrillation with RVR (6) Critical stenosis of aortic valve (7) Anxiety (8) Hypoxia Family History Heart disease Hypertension Social History Smoking Status: Former Smoker History of Alcohol Use: No Review of Systems Constitutional: No fever, No weakness, No weight loss Respiratory: + shortness of breath, No cough, No wheezing Cardiac: No chest pain, No palpitations Abdomen: No GI bleeding, No diarrhea, No nausea, No pain, No vomiting Female : No problem reported Neurologic: No balance problems, No numbness/tingling, No paralysis, No weakness Heme: No abnormal bleeding/bruising, No clotting problems Endo: No fatigue Skin: No problem reported All Other Systems: Reviewed and Negative Allergies Coded Allergies: Clonidine (Verified Allergy, Mild, SHORTNESS OF BREATH, 09/23/16) Iodinated Diagnostic Agents (Verified Allergy, Unknown, "IT JUST AFFECTS ME AND I CAN'T EXPLAIN IT", 09/23/16) Latex1 -Allergic Contact Dermititis (Verified Allergy, Unknown, RASH, ) Penicillins (Verified Allergy, Unknown, UNKNOWN, 09/23/16) Sulfa Antibiotics (Verified Allergy, Unknown, "SWELLING IN MOUTH AND DRIED OUT", 09/23/16) Medications Current Inpatient Medications Medications (Trade) Dose Ordered Sig/Yared Route Start Time Stop Time Status Last Admin Dose Admin Acetaminophen (Tylenol Tab) 650 mg Q4H PRN PO 09/23/16 18:15 10/23/16 18:14 09/23/16 23:47 650 MG Al Hydrox/Mg Hydrox/Simethicone (Maalox Max Susp) 15 ml Q4H PRN PO 09/23/16 18:15 10/23/16 18:14 Magnesium Hydroxide (Milk Of Magnesia Susp) 30 ml Q12H PRN PO 09/23/16 18:15 10/23/16 18:14 Ondansetron HCl (Zofran Inj) 4 mg Q6H PRN IV 09/23/16 18:15 10/23/16 18:14 Nitroglycerin (Nitrostat Tab) 0.4 mg UD PRN SL 09/23/16 18:15 10/23/16 18:14 Polyethylene (Miralax Powder Packet) 17 gm DAILY PRN PO 09/23/16 18:15 10/23/16 18:14 Budesonide/ Formoterol Fumarate (Symbicort 80/ 4.5 Inh) 2 puffs BID INH 09/23/16 21:00 10/23/16 20:59 09/25/16 08:35 2 PUFFS Ergocalciferol (Vitamin D Cap) 50,000 interunit We@0900 PO 09/27/16 09:00 10/27/16 08:59 Ipratropium [place] (Atrovent 0.02% 0.5MG/2.5ML Neb) 0.5 mg Q6R PRN INH 09/23/16 18:15 10/23/16 18:14 09/24/16 14:19 0.5 MG Levalbuterol (Xopenex 0.63 Mg/ 3 Ml Neb) 0.63 mg Q6R PRN INH 09/23/16 18:15 10/23/16 18:14 09/24/16 14:19 0.63 MG Levothyroxine Sodium (Synthroid Tab) 75 mcg DAILYBB PO 09/24/16 06:00 10/24/16 06:59 09/25/16 05:22 75 MCG Magnesium Chloride (Slow-Mag Tab) 64 mg QAM PO 09/24/16 09:00 10/24/16 08:59 09/25/16 08:35 64 MG Multivitamins (Multivitamin Tab) 1 tab QAM PO 09/24/16 09:00 10/24/16 08:59 09/25/16 08:35 1 TAB Potassium Chloride (Klor-Con M10) 10 meq DAILY PRN PO 09/23/16 18:15 10/23/16 18:14 Rivaroxaban (Xarelto Tab) 15 mg QPM PO 09/23/16 21:00 10/23/16 20:59 09/24/16 21:23 15 MG Senna/Docusate Sodium (Senokot S Tab) 1 tab BID PO 09/23/16 21:00 10/23/16 20:59 09/25/16 08:35 1 TAB Travoprost (Travatan Z) 1 drops HS OPB 09/23/16 21:00 10/23/16 20:59 09/24/16 21:25 1 DROPS Artificial Tears (Artificial Tears) 1 drops HS OPB 09/23/16 21:00 10/23/16 20:59 09/24/16 21:23 1 DROPS Tiotropium [place] 1 puff 1 puff QAM INH 09/24/16 09:00 10/24/16 08:59 09/25/16 08:35 1 PUFF Lorazepam/Syringe (Ativan Inj/ Syringe) 1 ml @ 1 mls/min Q6 PRN IV 09/23/16 21:00 10/23/16 20:59 Lorazepam 0.5 mg 0.5 mg Q6 PRN IV 09/23/16 21:15 10/23/16 21:14 09/25/16 05:26 0.5 MG Methylprednisolone Sodium Succinate/ Syringe (Solu-Medrol IV/ Syringe) 0.64 ml @ 1.5 mls/min Q6H IV 09/24/16 16:00 10/24/16 15:59 09/25/16 09:52 1.5 MLS/MIN Diltiazem HCl (Cardizem Tab) 60 mg Q6H PO 09/25/16 11:30 10/25/16 11:29 09/25/16 11:41 60 MG Furosemide (Lasix Tab) 20 mg DAILY PO 09/26/16 09:00 10/26/16 08:59 Physical Exam Vital Signs Past 12 Hours Date Time Temp Pulse Resp B/P Pulse Ox O2 Delivery O2 Flow Rate FiO2 09/25/16 12:00 Nasal Cannula 6.0 09/25/16 08:14 36.4 72 20 121/91 98 BiPAP 09/25/16 08:00 98 BiPAP 40 09/25/16 07:05 78 98 40 09/25/16 04:00 94 BiPAP 40 09/25/16 03:54 36.6 83 20 127/106 94 BiPAP 09/25/16 03:06 80 98 40 Constitutional: General Apperance: cachectic Level of Distress: mild distress Psychiatric: Mental Status: active & alert Head: normocephalic Eyes: EOM: EOMI ENMT: normal ENT inspection, hearing grossly normal, pertinent finding ( currently on BiPAP) Neck: supple, no masses, pertinent finding (transmitted aortic stenosis murmur bilaterally) Lungs: Respiratory effort: no dyspnea, good air movement Auscultation: breath sounds normal, no wheezing Cardiovascular: Heart Auscultation: no rubs, no gallops, III/ RAYSHAWN, irregular rate rhythm Peripheral Pulses: Bruits: none appreciated Abdomen: Bowel Sounds: normal Inspection & Palpation: soft, no tenderness, guarding & rebound, no masses Extremities: no edema Neurologic: Cranial Nerves: grossly intact Sensation: grossly intact Data Laboratory Results: Last 24 Hours Test 09/24/16 18:25 09/25/16 05:37 Urine Color DK YELLOW Urine Appearance CLEAR Urine pH 5.0 Urine Specific [place] 1.021 Urine Protein 2+ Urine Glucose (UA) NEG Urine Ketones 1+ Urine Occult Blood 2+ Urine Nitrite NEG Urine Bilirubin NEG Urine Urobilinogen NEG Urine Leukocyte Esterase NEG Urine WBC (Auto) 1-5 /hpf Urine RBC (Auto) 10-30 /hpf Urine Hyaline Casts (Auto) 5-10 /lpf Urine Epithelial Cells (Auto) >30 /lpf Urine Bacteria (Auto) NEG White Blood Count 9.50 K/uL Red Blood Count 4.03 M/uL Hemoglobin 12.6 g/dL Hematocrit 36.8 % Mean Corpuscular Volume 91.3 fL Mean Corpuscular Hemoglobin 31.3 pg Mean Corpuscular Hemoglobin Concent 34.2 g/dl Platelet Count 245 K/uL Mean Platelet Volume 10.8 fL Neutrophils (%) (Auto) 94.1 % Lymphocytes (%) (Auto) 4.3 % Monocytes (%) (Auto) 1.2 % Eosinophils (%) (Auto) 0.0 % Basophils (%) (Auto) 0.0 % Neutrophils # (Auto) 8.94 K/uL Lymphocytes # (Auto) 0.41 K/uL Monocytes # (Auto) 0.11 K/uL Eosinophils # (Auto) 0.00 K/uL Basophils # (Auto) 0.00 K/uL RDW Standard Deviation 42.2 fL RDW Coefficient of Variation 12.5 % Immature Granulocyte % (Auto) 0.4 % Immature Granulocyte # (Auto) 0.04 K/uL Sodium Level 133 mmol/L Potassium Level 4.1 mmol/L Chloride Level 99 mmol/L Carbon Dioxide Level 25 mmol/L Anion Gap 9.0 mmol/L Blood Urea Nitrogen 18 mg/dl Creatinine 0.45 mg/dl Est Creatinine Clear Calc Drug Dose 68.9 ml/min Estimated GFR () 105.9 Estimated GFR (Non- 91.4 BUN/Creatinine Ratio 40.3 Random Glucose 158 mg/dl Calcium Level 8.3 mg/dl Imaging: I reviewed her chest x-ray on admission, she may have some cephalization but no clear pulmonary edema. EKG: Atrial fibrillation with rapid ventricular response on admission, heart rate 131, no acute changes Telemetry reviewed: Atrial fibrillation with a rapid heart rate frequently, but not always. Her heart rate following admission is ranging between about 70 bpm and the low 100s, most of the time below 100. Assessment & Plan #1. Severe aortic stenosis: She has long-standing aortic stenosis, now severe although it has not affected her left ventricular function which remains hyperdynamic. She should be evaluated for valve replacement although obviously this carries significant risk, however the surgeon doing the procedure should discuss that with her and make the ultimate decision with her. #2. Shortness of breath: The cause is unclear, I don't believe it is primarily heart failure although she could have a component of that. I don't know that diuresis would be beneficial. I suspect a good bit of it is pulmonary with perhaps a contribution of mild heart failure. #3. Permanent atrial fibrillation: She has permanent atrial fibrillation and the heart rate at times is somewhat fast, although not fast enough that I think it is causing significant problems for the most part it is reasonably well controlled. It is probably compensatory on her current regimen. I would not try to slow her heart rate down more than it currently is. She will need to remain on long-term anticoagulation, currently Xarelto. #4. Severe pulmonary hypertension: This appears to be a new finding, perhaps related to some degree of heart failure or her underlying lung disease. I don't think there is any specific treatment for this other than perhaps diuresis. Thank you for allowing me to participate in her care.
[2016-09-25 16:40] LABS: URINE APPEARANCE CLEAR (CLEAR); URINE BILIRUBIN NEG (NEG); URINE COLOR DK YELLOW; URINE EPITHELIAL CELL AUTO 20-30 /lpf (0-5); URINE NITRITE NEG (NEG); URINE SPECIFIC GRAVITY 1.019 (1.000-1.030); UROBILINOGEN NEG (NEG)
[2016-09-25 16:42] LABS: MANUAL MICROSCOPIC REQUIRED? NO; REVIEW REQ? NO
--- NOTE | 2016-09-25 17:48 | PULMONARY CONSULTATION ---
DATE OF CONSULTATION: 09/25/2016 TIME: 3:10 p.m. HISTORY OF PRESENT ILLNESS: The patient was seen in room 207. She is an 86-year-old female who has a chief complaint of shortness of breath. The patient has a significant history of severe COPD. This has been documented by pulmonary function testing. She also has severe aortic stenosis. She had an echocardiogram done yesterday. This showed severe calcific aortic stenosis with severe pulmonary hypertension, now being present. The aortic valve area was calculated at 0.43. Moderate concentric left ventricular hypertrophy is noted. There is mild aortic regurg and mild mitral regurg. Compared with the prior echo done on 08/02/2015, the pulmonary hypertension is new. Her left ventricular ejection fraction is about 70%. The patient does not feel too much better since she was admitted on September 23. She also had rapid atrial fib at that time. She has a cough with scant sputum. There has been no hemoptysis. She denies chills, fevers or sweats. She was recently hospitalized from September 07 until September 12. At that time, she did have a small left lower lobe infiltrate. She very recently missed an appointment in our office this past week. There was some difficulty getting Xopenex nebulizer solution, but she ultimately did get it. PAST PULMONARY HISTORY: In addition to COPD, the patient has a history of sleep apnea diagnosed in 2009. At that time, she had an apnea-hypopnea index of 24.5. She did not tolerate CPAP at that time. The patient was a 1 pack per day smoker for 20 years, but she has not smoked since about 1969. The patient has lived in the [place] area for 11 years. She complains of numerous allergy symptoms that she believes all began after she moved here. PAST SURGICAL HISTORY: 1. Cataract surgery. 2. Cystoscopy. PAST MEDICAL HISTORY: 1. Prior CVA. 2. Fractured right humerus. 3. Concussion. 4. Skin cancer. 5. Eustachian tube dysfunction. FAMILY HISTORY: Positive for coronary artery disease, cancer, and stroke. SOCIAL HISTORY: Tobacco as noted. ETOH -- none. ALLERGIES: LISTED ALLERGIES TO NUMEROUS MEDICINES INCLUDING ALDACTONE, AMLODIPINE, ATENOLOL, CLONIDINE, DIOVAN, CONTRAST DYE, LIDODERM PATCH, LOSARTAN, NIFEDIPINE, PENICILLIN, AND TERAZOSIN. MEDICATIONS AT HOME: 1. Symbicort 80/4.5 two puffs b.i.d. 2. Diltiazem 360 mg every morning. 3. Vitamin D 50,000 units weekly. 4. Furosemide 20 mg daily p.r.n. 5. Hydrochlorothiazide 12.5 mg at bedtime. 6. Neb treatments with levalbuterol and ipratropium every 6 hours as needed -- I have advised the patient previously to take it b.i.d. and p.r.n. 7. Levothyroxine 75 mcg daily. 8. Slow-Mag 64 mg daily. 9. Potassium 10 mEq p.r.n. 10. Rivaroxaban 15 mg daily. 11. Travatan Z 1 drop at bedtime. REVIEW OF SYSTEMS: The patient is somewhat of a difficult historian. She gets extremely anxious. She gets agitated easily. She denies any recent syncope. She states her nose is sore from the BiPAP mask. This would be external soreness. She has not had any chest pains. Her appetite is poor. She denies nausea. She has had some constipation. The patient unfortunately lives alone. She has aids to come and check on her periodically. The remainder of the review of systems is negative except as noted above. PHYSICAL EXAMINATION: GENERAL: The patient is an 86-year-old female who was cooperative, alert and oriented. We had her take the BiPAP off. She has flight of ideas. This is not unusual for her. VITAL SIGNS: Temperature is 36.4. Rate currently is 84 per minute. Blood pressure is 121/91. Oxygen saturation was 93% on nasal cannula. Respiratory rate was 20. HEENT: Pupils were reactive. Nasal cannula was in place. Mouth exam was negative. NECK: Palpation of the neck reveals no lymph nodes or masses. The neck veins were mildly distended with the patient sitting upright at about 60 degrees. HEART: The rhythm is atrial fib. LUNGS: Lung luis revealed decreased breath sounds at both lung bases with some cautioned. There was dullness more on the right than the left. ABDOMEN: Soft and nontender. No masses were palpable. EXTREMITIES: Showed no cyanosis, clubbing or edema. LABORATORY DATA: White count initially was 15.95. Today, it is 9.5. Hemoglobin is 12.6. Platelets are 245,000. Urinalysis showed +2 protein with 10-30 RBCs, but only 1-5 WBC. Electrolytes show sodium 133, potassium 4.1, chloride 99 and bicarb 25. The BUN is 18 with a creatinine of 0.45. Troponin was negative. TSH was 0.066. Procalcitonin was 0.06, which would be low. C-reactive protein was high at 6.01. Troponin was negative. ALT was normal at 17. AST was low at 12. Total bilirubin is 0.8. IMAGING DATA: Chest x-ray done on admission suggested early interstitial edema. Chest x-ray done today shows progression of interstitial thickening and there are small pleural effusions. This favors pulmonary edema. There is haziness at the lung bases. IMPRESSION: 1. Chronic obstructive pulmonary disease -- severe. 2. Critical aortic stenosis. 3. Pleural effusions. 4. Pulmonary Hypertension COMMENTS: I spoke with the patient. She indicates to me that she does not want CPR or mechanical ventilation. I will convey this to Dr. Prasad who is her hospitalist. The patient has expressed interest in going to [facility] in the [place]. She has family members there. Her son recently had a TAVR procedure and she would like to know if she is a candidate or not. I told her we could evaluate this from RN. Perhaps director case could contact [facility] and send along the results of her echo, etc. She does think she wants to have the BiPAP on, so I know she is quite short of breath. She is getting methylprednisolone 40 mg IV q. 6 hours. She is getting tiotropium 1 puff daily. She is on Symbicort 2 puffs b.i.d. She is on rivaroxaban. She is getting neb treatments, but it appears to be p.r.n. She did have a treatment this afternoon. I believe her prognosis is poor. Thank you for asking me to assist in her care. JOSELINE
[2016-09-25] MEDS: TRAVOPROST Z 0.004% OPH SOLN 2.5 ML BTL OPB SCH (21:13)
[2016-09-25] MEDS: RIVAROXABAN TAB 15 MG TAB PO SCH (21:13)
[2016-09-25] MEDS: ARTIFICIAL TEARS OP SOLN OPB SCH ×2 (21:14)
[2016-09-26 04:00] VITALS: BP 153/91; PULSE 94; TEMP 36.3; O2SAT 97
[2016-09-26] MEDS: METHYLPREDNISOLONE IV 40 MG in SYRINGE 0 ML IV SCH ×2 (05:28→20:57)
[2016-09-26] MEDS: DILTIAZEM HCL 60 MG TAB PO SCH ×4 (05:28→23:55)
[2016-09-26] MEDS: LEVOTHYROXINE 75 MCG TAB PO SCH (05:28)
[2016-09-26 05:59] LABS: COMPLETE YES; HEMATOCRIT 32.3 % (37-47); IG% 0.2 %; LYMPH % 3.5 %; LYMPH ABS # 0.35 K/uL (1.2-3.4); MEAN CORPUSCULAR HGB CONC 34.1 g/dl (32-36); MEAN PLATELET VOLUME 10.4 fL (7.4-10.4); MONO % 3.5 %; NEUT % 92.8 %; PLATELET COUNT 267 K/uL (130-400); RED BLOOD COUNT 3.55 M/uL (4.2-5.4); WHITE BLOOD COUNT 10.01 K/uL (4.8-10.8)
[2016-09-26 06:29] LABS: BUN/CREATININE RATIO 39.4 (10-20); CALCIUM 8.2 mg/dl (8.5-10.1); CREATININE 0.61 mg/dl (0.60-1.20); POTASSIUM 4.5 mmol/L (3.5-5.1)
[2016-09-26] MEDS: MULTIVITAMIN TAB PO SCH (08:20)
[2016-09-26 08:21] VITALS: BP 121/66; PULSE 93; TEMP 36.4; O2SAT 91
[2016-09-26] MEDS: BUDESONIDE/FORMOTEROL FUMARATE 80/4.5 60 PUFFS/INHALER INH SCH ×2 (08:21→20:57)
[2016-09-26] MEDS: FUROSEMIDE 20 MG TAB PO SCH (08:21)
[2016-09-26] MEDS: TIOTROPIUM BROMIDE 5 PUFF/90 MCG INH INH SCH (08:22)
[2016-09-26] MEDS: MAGNESIUM CHLORIDE 64MG DELAYED REL TAB PO SCH (08:29)
[2016-09-26] MEDS: DOCUSATE SODIUM/SENNA 50/8.6MG TAB PO SCH ×2 (08:30→20:58)
--- NOTE | 2016-09-26 11:21 | CARDIOLOGY PROGRESS NOTE ---
DATE: 09/26/2016 HISTORY OF PRESENT ILLNESS: Mrs. Lane is an 86-year-old white female with a history of moderate concentric LVH, chronic atrial fibrillation (occasionally with RVR), severe/critical calcific aortic stenosis (aortic valve area approximately 0.5 cm2), mild MR, mild AI, mild to moderate TR, and severe pulmonary hypertension who was admitted on 09/23/2016 complaining of progressive shortness of breath and dyspnea on exertion. This is likely secondary to her severe COPD, severe pulmonary hypertension, and severe/critical aortic valvular stenosis. Since being admitted, her shortness of breath has improved slightly, but her quality of life is still very poor. She is interested in seeking evaluation for TAVR at [facility] in [place]. She has a nephew who had a TAVR procedure done there and has done quite well. Also, her niece works at this facility and can help make arrangements with the cardiothoracic surgeon there. The patient denies any chest pain, but remains short of breath. She denies any pleuritic chest pain, heaviness, tightness or pressure. She denies any nausea, vomiting, or diaphoresis. She is short of breath at rest, but not with talking. She has exertional dyspnea even with very minimal exertion. She denies any palpitations, tachypalpitations, syncope, or near syncope. PHYSICAL EXAMINATION: VITAL SIGNS: Temperature is 36.4 degree Celsius, pulse is 95-100 and irregularly irregular, blood pressure 121/66. SPO2 is 91% on 5 liters oxygen via nasal cannula. I's and O's positive fluid balance of 159 mL total since admitted. GENERAL: The patient in mild respiratory distress, tachypneic. HEENT: Head is atraumatic, normocephalic. EOMs intact. Sclerae are anicteric. Face is asymmetric. No perioral cyanosis. NECK: Elevated jugular venous pressure with wide respiratory variation. No obvious JVD. CHEST AND LUNGS: With diminished breath sounds throughout, no wheezes, rales or rhonchi. CARDIOVASCULAR: S1 and S2 are irregularly irregular, borderline tachycardic with a grade 3/6 crescendo decrescendo systolic murmur heard at the right second intercostal space and radiating towards the suprasternal notch and left sternal border. No obvious diastolic murmurs. No gallops or rubs. Aortic valve closure sound is absent. PMI is nondisplaced. No lifts, heaves, or thrills. No abdominal, aortic or renal bruits. ABDOMEN: Bowel sounds present. EXTREMITIES: Without clubbing, cyanosis or edema. Palpable posterior tibial pulses bilaterally. NEUROLOGIC: No focal neurologic deficits. LABORATORY DATA: White blood cell count is 10.01, hemoglobin 11.0 g/dL, hematocrit 32.3%, platelet count 267,000. Sodium is 134 mmol/L, potassium 4.5 mmol/L, BUN 24 mg/dL, creatinine 0.61 mg/dL. Magnesium level was 2.4 mg/dL. Troponin I levels are less than 0.015, 0.017, and less than 0.015 ng/mL ProBNP was not evaluated, negative for influenza A and influenza B. IMAGING DATA: Current telemetry monitoring reveals atrial fibrillation with occasional RVR. Echocardiogram performed on 09/24/2016 shows hyperdynamic LV systolic function, LVEF is greater than 70%. Moderate concentric LVH. Severe calcific aortic stenosis, mild AI, mild MR, mild to moderate TR, and severe pulmonary hypertension. ASSESSMENT: 1. Progressive dyspnea on exertion, shortness of breath which is likely multifactorial including severe chronic obstructive pulmonary disease, severe pulmonary hypertension, severe/critical aortic stenosis, possibly a component of diastolic congestive heart failure. PLAN: 1. From a cardiac standpoint, would recommend ongoing negative chronotropic medication including Cardizem 60 mg p.o. hours. Continue Lasix 20 mg daily along with potassium chloride, continue magnesium supplementation as well. 2. Continue Xarelto 15 mg q. 8 p.m. to reduce risk of thromboembolic phenomenon associated with atrial fibrillation. 3. Continue treatment of underlying chronic obstructive pulmonary disease with intravenous steroids, nebulizers, and inhalers. 4. Referral will be made to [facility] cardiothoracic surgery regarding possible evaluation for TAVR -- either as a direct patient in transfer versus an outpatient evaluation. 5. Continue supplemental oxygen. 6. We will continue to follow while hospitalized. JOSELINE
--- NOTE | 2016-09-26 11:31 | PULMONARY PROGRESS NOTE ---
DATE: 09/26/2016 TIME: 11:00 a.m. SUBJECTIVE: The patient states she had a bad night. However, she is not complaining about how she feels, just about her insecurity with nursing staff, etc. She seems to have some degree of paranoia this morning. She states her cough is not bad. She did wear BiPAP last night she states. She is not having chest pain. OBJECTIVE: GENERAL: The patient looked comfortable at rest. Temperature is 36.4. ENT: Unchanged from yesterday. VITAL SIGNS: Heart rate was 92 per minute. The rhythm was irregular. Blood pressure 121/66. LUNGS: Lung luis revealed diminished breath sounds, especially at the right lung base. There was some dullness to percussion. Respiratory rate was 22 per minute. No wheezing was heard. Oxygen saturation was 91% on nasal cannula. This was with 5 liters of oxygen. ABDOMEN: Soft and nontender. EXTREMITIES: Showed no cyanosis, clubbing or edema. LABORATORY DATA: White count today is 10.01. Hemoglobin is 11. Platelets 267,000. Electrolytes showed sodium 134, potassium 4.5, chloride 101, bicarbonate 29. BUN is 24 with a creatinine of 0.61. Blood sugar is 162. Blood cultures have shown no growth. IMPRESSIONS: 1. Chronic obstructive pulmonary disease - severe. 2. Critical aortic stenosis. 3. Pleural effusions. The patient has been demanding a copy of her echocardiogram. The nursing staff had arranged a copy of this. I went in with her nurse who had her sign the release for this. I discussed the case yesterday with Dr. Prasad regarding the patient's request to be considered for transfer or evaluation at [facility] in [place]. This was also discussed with John Garvin PA-C, from cardiology division. His opinion is that from a purely cardiology perspective, she may be a candidate for this procedure. Whether that can be arranged or not remains to be seen. I believe it is reasonable to cut back her methylprednisolone. She does not seem excessively tight. I will cut this back to 40 mg IV q. 12 hours. I would encourage her to get the p.r.n. levalbuterol and ipratropium when she is having shortness of breath episodes. Part of this would be a trial to see if it would help her at all.
[2016-09-26 12:30] VITALS: BP 128/83; PULSE 96; TEMP 36.7; O2SAT 97
--- NOTE | 2016-09-26 12:45 | Clinical Documentation Query ---
CLINICAL DOCUMENTATION QUERY Dr. 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 Clinical Indicators: 86 yo female presenting with worsening dyspnea. Review of historical GFR over the past year shows a range of 62.9-91.4. Treatment:monitor PRP's, manage comorbid conditions: HTN, COPD, A fib, monitor I/O Risk factors: A fib, age, COPD, HTN, aortic stenosis The stages of CKD according to the [employer] are as follows: Stage I: GFR >90 Stage II: GFR 60-89 Stage III: GFR 30-59 Stage IV: GFR 15-29 Stage V: GFR <15 Please clarify and document your clinical opinion in the progress notes and discharge summary. Terms such as "probable", "suspected", "likely", "questionable", "possible", or "still to be ruled out" are acceptable. IF IN AGREEMENT, YOU MUST DOCUMENT ABOVE DIAGNOSTIC STATEMENT IN DAILY PROGRESS NOTES AND DISCHARGE SUMMARY. This document is not part of the patient's record. Thank You, Ave Alcantara RN [phone]
--- NOTE | 2016-09-26 15:28 | Family Medicine Progress Note ---
Progress Note Date of Service September 26, 2016. Subjective Pt evaluation today including: conversation w/ patient, physical exam, chart review, lab review The patient states that her breathing is very poor. She feels SOB with minimal exertion, although she is able to converse without dyspnea. She denies CP, palpitations, lightheadedness, nausea. She states her appetite is poor and that she is keen for valve replacement if she is a candidate. Constitutional: No chills, No fever ENT: + hearing loss Respiratory: + cough, + dyspnea at rest, + dyspnea on exertion, + shortness of breath, No hemoptysis Cardiovascular: No chest pain, No edema, No palpitations Abdomen: No nausea, No pain, No vomiting Objective Vital Signs Date Time Temp Pulse Resp B/P Pulse Ox O2 Delivery O2 Flow Rate FiO2 09/26/16 12:30 36.7 96 18 128/83 97 Nasal Cannula 5.0 09/26/16 12:00 Nasal Cannula 5.0 09/26/16 08:21 36.4 93 121/66 91 Nasal Cannula 09/26/16 08:00 Nasal Cannula 5.0 09/26/16 04:00 Nasal Cannula 6.0 09/26/16 04:00 36.3 94 28 153/91 97 Nasal Cannula 5.0 09/26/16 00:00 Nasal Cannula 6.0 09/25/16 23:56 36.2 93 22 139/86 99 Nasal Cannula 5.0 09/25/16 20:00 Nasal Cannula 6.0 09/25/16 20:00 36.4 73 22 131/88 95 BiPAP 09/25/16 19:33 92 98 40 09/25/16 16:15 36.8 90 20 162/62 93 Nasal Cannula 5.0 09/25/16 16:00 Room Air 6.0 Physical Exam General Appearance: WD/WN, + mild distress ENT: + pertinent finding (Uses hearing aid) Respiratory/Chest: no respiratory distress, no accessory muscle use, + decreased breath sounds, + rhonchi, + wheezing Cardiovascular: + diastolic murmur, + systolic murmur, + irregularly irregular Abdomen: normal bowel sounds, non tender, soft Extremities: normal inspection, no pedal edema, no calf tenderness Neurologic/Psychiatric: alert, normal mood/affect, oriented x 3 Skin: normal color, warm/dry, no rash Laboratory Results Results Past 24 Hours Test 5/9/17 05:25 Range/Units White Blood Count 10.01 4.8-10.8 K/uL Red Blood Count 3.55 4.2-5.4 M/uL Hemoglobin 11.0 12.0-16.0 g/dL Hematocrit 32.3 37-47 % Mean Corpuscular Volume 91.0 80-100 fL Mean Corpuscular Hemoglobin 31.0 25-34 pg Mean Corpuscular Hemoglobin Concent 34.1 32-36 g/dl Platelet Count 267 130-400 K/uL Mean Platelet Volume 10.4 7.4-10.4 fL Neutrophils (%) (Auto) 92.8 % Lymphocytes (%) (Auto) 3.5 % Monocytes (%) (Auto) 3.5 % Eosinophils (%) (Auto) 0.0 % Basophils (%) (Auto) 0.0 % Neutrophils # (Auto) 9.29 1.4-6.5 K/uL Lymphocytes # (Auto) 0.35 1.2-3.4 K/uL Monocytes # (Auto) 0.35 0.11-0.59 K/uL Eosinophils # (Auto) 0.00 0-0.5 K/uL Basophils # (Auto) 0.00 0-0.2 K/uL RDW Standard Deviation 42.2 36.4-46.3 fL RDW Coefficient of Variation 12.5 11.5-14.5 % Immature Granulocyte % (Auto) 0.2 % Immature Granulocyte # (Auto) 0.02 0.00-0.02 K/uL Sodium Level 134 136-145 mmol/L Potassium Level 4.5 3.5-5.1 mmol/L Chloride Level 101 98-107 mmol/L Carbon Dioxide Level 29 21-32 mmol/L Anion Gap 4.0 3-11 mmol/L Blood Urea Nitrogen 24 7-18 mg/dl Creatinine 0.61 0.60-1.20 mg/dl Est Creatinine Clear Calc Drug Dose 55.5 ml/min Estimated GFR () 95.8 Estimated GFR (Non- 82.7 BUN/Creatinine Ratio 39.4 10-20 Random Glucose 161 70-99 mg/dl Calcium Level 8.2 8.5-10.1 mg/dl Assessment and Plan 86 year old female with a past medical history of COPD, Severe Aortic Stenosis, Atrial Fibrillation, CKD I-II, and Hypothyroidism that presents with worsening shortness of breath Acute Hypoxic Respiratory Failure - Symptoms currently stable with treatment regimen. Secondary to combination of atrial fibrillation, severe aortic stenosis, and some component of diastolic heart failure. CXR on admission showed early interstitial edema. Previous ECHO 08/02/15 showed LVEF > 70%, severe aortic stenosis with calculated BINA 0.5cm2, mild aortic regurgitation, moderate to severe mitral annular calcification with mild mitral regurgitation, grade I diastolic dysfunction. Recent ECHO shows new pulmonary HTN. Cardiology and pulmonology consulted - recs appreciated. - Bipap PRN and O2 via NC when tolerating - Lasix 20mg - Referral to [facility] in [place] for TAVR - may need to call to discuss direct transfer of patient tomorrow COPD - Shortness of breath improving - Symbicort 2 puff BID - Duoneb - Xopenex and Atrovent PRN - Spiriva 1 puff qAM - Methylprednisone 40mg q12h Atrial Fibrillation with RVR - Currently rate controlled. Received Diltiazem drip on admission with bolus, then switched to PO. TSH low with upper normal FT4 , history of taking excess Synthroid for weight loss - PO Diltiazem SR 120mg BID (instead of SA 60mg QID) - Xarelto 15mg qPM Leukocytosis - Possibly secondary to steroid use after previous admission. WBC on admission 15.95, now WNL. Afebrile, Blood Cultures negative, Chest Xray shows no infiltrates Hematuria - UA positive for RBC. 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 Extensive work up has already been done. Hypertension - Benicar and HCTZ held in view of previous hypotension - Lasix 20mg Hypothyroidism - Low TSH on admission. Patient possibly taking extra doses of Synthroid for weight loss - Synthroid 75mcg - Monitor TSH as outpatient DVT Prophylaxis - Anticoagulated with Xarelto Code Status: DNR Continued [facility] stay due to: multiple IV medications needed Discharge planning: uncertain Resident Tracking Resident Involvement: Resident Care Provided Care Provided: Adult Hospital Medicine Reviewed: Pt Seen/Exam by Me History Resident Physician Supervision Note: I interviewed and examined the patient. Discussed with Dr. Hernandez and agree with findings and plan as documented in the note. Any exceptions or clarifications are listed here: Pt still very SOB, but has remained off BiPAP all day. She is interested in going to [facility] in [facility] for repair of her aortic valve. We will look into direct transfer versus arrangements for close outpatient follow-up if she is stable to be discharged. Tele A-fib with rates in 90s, vitals reviewed Mild resp distress, but very talkative, racing thoughts irreg irreg with mild tachycardia, 3 out of 6 harsh systolic ejection murmur at the right upper sternal border decreased BS throughout with occasional wheezes Ext no edema, no calf tenderness, sarcopenia SKin no rashes 86 yo female with severe , acute on chronic hypoxemic resp failure, severe COPD, acute on chronic diastolic CHF. -Continue lasix as CXR with worsening pulm edema -send ECHO report to [facility] in [facility] to see if would be willing to see her probably as outpt vs direct transfer? Case management is assisting us with this -continue BiPAP prn -APpreciate Cardiology and Pulm consults -continue steroids IV and taper down -continue supportive care for severe anxiety, but with some paranoia as well--> consider Psychiatry consult Documented By: Greta Prasad
[2016-09-26 15:52] VITALS: BP 134/64; PULSE 65; TEMP 36.3; O2SAT 96
[2016-09-26 20:06] VITALS: BP 127/69; PULSE 85; TEMP 36.3; O2SAT 95
[2016-09-26] MEDS: TRAVOPROST Z 0.004% OPH SOLN 2.5 ML BTL OPB SCH (20:57)
[2016-09-26] MEDS: ARTIFICIAL TEARS OP SOLN OPB SCH ×2 (20:57)
[2016-09-26] MEDS: DILTIAZEM SR 60 MG CAP PO SCH (20:58)
[2016-09-26] MEDS: RIVAROXABAN TAB 15 MG TAB PO SCH (20:58)
[2016-09-26 23:54] VITALS: BP 156/79; PULSE 97; TEMP 35.8; O2SAT 97
[2016-09-27 04:06] VITALS: BP 124/64; PULSE 75; TEMP 35.8; O2SAT 95
[2016-09-27] MEDS: LEVOTHYROXINE 75 MCG TAB PO SCH (05:44)
[2016-09-27] MEDS: DILTIAZEM HCL 60 MG TAB PO SCH ×4 (05:44→23:30)
--- NOTE | 2016-09-27 07:10 | Family Medicine Progress Note ---
Progress Note Date of Service September 27, 2016. Subjective Pt evaluation today including: conversation w/ patient, physical exam, chart review, lab review The patient states that her breathing continues to be very poor, although she is currently tolerating nasal cannula and has not required bipap. She feels SOB with minimal exertion, although she is able to converse without dyspnea. She denies CP, palpitations, lightheadedness, nausea. She is keen for valve replacement if she is a candidate, specifically at [facility] in [place]. She does state that she has been having some diarrhea since yesterday. No blood in her stool. Constitutional: No chills, No fever ENT: + hearing loss Respiratory: + cough, + dyspnea on exertion, + shortness of breath Cardiovascular: No chest pain, No edema, No palpitations Abdomen: + diarrhea, No GI bleeding, No pain Female : No dysuria Objective Vital Signs Date Time Temp Pulse Resp B/P Pulse Ox O2 Delivery O2 Flow Rate FiO2 09/27/16 04:06 35.8 75 21 124/64 95 Nasal Cannula 5.0 09/27/16 04:00 Nasal Cannula 5.0 09/27/16 00:00 Nasal Cannula 5.0 09/26/16 23:54 35.8 97 24 156/79 97 Nasal Cannula 5.0 09/26/16 20:30 Nasal Cannula 5.0 09/26/16 20:06 36.3 85 18 127/69 95 09/26/16 16:00 Nasal Cannula 5.0 09/26/16 15:52 36.3 65 19 134/64 96 Nasal Cannula 5.0 09/26/16 12:30 36.7 96 18 128/83 97 Nasal Cannula 5.0 09/26/16 12:00 Nasal Cannula 5.0 09/26/16 08:21 36.4 93 121/66 91 Nasal Cannula 09/26/16 08:00 Nasal Cannula 5.0 Physical Exam General Appearance: WD/WN, + mild distress ENT: + pertinent finding (wears hearing aid) Neck: supple, no adenopathy Respiratory/Chest: no respiratory distress, no accessory muscle use, + decreased breath sounds, + rhonchi, + wheezing Cardiovascular: + diastolic murmur, + systolic murmur, + irregularly irregular Abdomen: normal bowel sounds, non tender, soft Extremities: normal inspection, no pedal edema, no calf tenderness Neurologic/Psychiatric: alert, normal mood/affect, oriented x 3 Skin: normal color, warm/dry, no rash Assessment and Plan 86 year old female with a past medical history of COPD, Severe Aortic Stenosis, Atrial Fibrillation, CKD I-II, and Hypothyroidism that presents with worsening shortness of breath Acute Hypoxic Respiratory Failure - Symptoms currently stable with treatment regimen. Secondary to combination of atrial fibrillation, severe aortic stenosis, and some component of diastolic heart failure. CXR on admission showed early interstitial edema. Previous ECHO 08/02/15 showed LVEF > 70%, severe aortic stenosis with calculated BINA 0.5cm2, mild aortic regurgitation, moderate to severe mitral annular calcification with mild mitral regurgitation, grade I diastolic dysfunction. Recent ECHO shows new pulmonary HTN. Cardiology and pulmonology consulted - recs appreciated. - Bipap PRN and O2 via NC when tolerating - Lasix 20mg - Referral to [facility] in [place] for TAVR - outpatient appointment scheduled for 10/23/16 COPD - Shortness of breath improving - Symbicort 2 puff BID - Duoneb - Xopenex and Atrovent PRN - Spiriva 1 puff qAM - Methylprednisone 40mg q12h - Pantoprazole 40mg daily for GI prophylaxis Diarrhea - patient not on antibiotics currently, but did complete a course recently. - Hold stool softener - Check c.diff toxin Atrial Fibrillation with RVR - Currently rate controlled. Received Diltiazem drip on admission with bolus, then switched to PO. TSH low with upper normal FT4 , history of taking excess Synthroid for weight loss - PO Diltiazem SR 120mg BID - Xarelto 15mg qPM Leukocytosis - Possibly secondary to steroid use after previous admission. WBC on admission 15.95, now WNL. Afebrile, Blood Cultures negative, CXR shows no infiltrates Hematuria - UA positive for RBC. 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 Extensive work up has already been done. Hypertension - Benicar and HCTZ held in view of previous hypotension - Lasix 20mg Hypothyroidism - Low TSH on admission. Patient possibly taking extra doses of Synthroid for weight loss - Synthroid 75mcg - Monitor TSH as outpatient DVT Prophylaxis - Anticoagulated with Xarelto Code Status: DNR Continued [facility] stay due to: multiple IV medications needed Discharge planning: uncertain Resident Tracking Resident Involvement: Resident Care Provided Care Provided: Adult Hospital Medicine Reviewed: Pt Seen/Exam by Me (yes short thank you) History Resident Physician Supervision Note: I interviewed and examined the patient. Discussed with Dr. Hernandez and agree with findings and plan as documented in the note. Any exceptions or clarifications are listed here: Continues to remain off BiPAP, was weaned down to 2 L and her pulse ox was normal but she demanded to be increased back to 6 L nasal cannula. When I advised her that insurance was not going to pay for an ambulance ride to [facility], she demanded that the doctors in the hospital pay for her ambulance ride. She became extremely agitated and was screaming at me. Tele A-fib with rates in 90s, vitals reviewed Mild resp distress, but very talkative, racing thoughts irreg irreg with mild tachycardia, 3 out of 6 harsh systolic ejection murmur at the right upper sternal border decreased BS throughout with occasional wheezes Ext no edema, no calf tenderness, sarcopenia SKin no rashes 86 yo female with severe , acute on chronic hypoxemic resp failure, severe COPD, acute on chronic diastolic CHF. -Continue lasix as CXR with worsening pulm edema which is now improved on today' s chest x-ray -We have arranged an outpatient evaluation with at [facility] which unfortunately is not until October 23-patient is absolutely refusing SNF in the meantime-we will continue to work on either direct transfer approval versus convincing her to go to SNF -continue BiPAP prn -APpreciate Cardiology and Pulm consults -continue steroids IV and taper down -continue supportive care for severe anxiety, but with some paranoia as well--> consider Psychiatry consult Documented By: Greta Prasad
[2016-09-27] MEDS: DILTIAZEM SR 60 MG CAP PO SCH ×3 (07:37→23:35)
[2016-09-27] MEDS: MAGNESIUM CHLORIDE 64MG DELAYED REL TAB PO SCH (07:38)
[2016-09-27] MEDS: MULTIVITAMIN TAB PO SCH (07:38)
[2016-09-27] MEDS: FUROSEMIDE 20 MG TAB PO SCH (07:39)
[2016-09-27] MEDS: BUDESONIDE/FORMOTEROL FUMARATE 80/4.5 60 PUFFS/INHALER INH SCH ×2 (07:39→21:00)
[2016-09-27] MEDS: DOCUSATE SODIUM/SENNA 50/8.6MG TAB PO SCH ×2 (07:42→21:00)
[2016-09-27] MEDS: METHYLPREDNISOLONE IV 40 MG in SYRINGE 0 ML IV SCH ×2 (07:45→21:00)
[2016-09-27 08:16] VITALS: BP 155/75; PULSE 79; TEMP 36.1; O2SAT 96
[2016-09-27] MEDS ORDERED: ERGOCALCIFEROL 50,000 INTER.UNIT CAP PO SCH (09:00)
[2016-09-27] MEDS: TIOTROPIUM BROMIDE 5 PUFF/90 MCG INH INH SCH (09:09)
[2016-09-27] MEDS ORDERED: PANTOprazole SOD 40 MG TAB PO ONE (10:30)
[2016-09-27 12:01] VITALS: BP 110/59; PULSE 70; TEMP 36.9; O2SAT 94
[2016-09-27 15:19] VITALS: BP 129/66; PULSE 73; TEMP 36.3; O2SAT 96
--- NOTE | 2016-09-27 16:54 | PULMONARY PROGRESS NOTE ---
DATE: 09/27/2016 DATE: 09/27/2016. TIME: 4:30 p.m. SUBJECTIVE: The patient is feeling somewhat better. She is less short of breath. She has been able to walk a bit with rehab. Nursing staff tells me she does stand up and gets up on her own even though they tell her not to. Her oxygen needs have decreased. She is now on 2 liters. OBJECTIVE: GENERAL: The patient appears comfortable at rest. Temperature is 36.3. EARS, NOSE, THROAT: Exam is unremarkable. VITAL SIGNS: Heart rate is 73 per minute. The rhythm is irregular. Blood pressure is 129/66. CHEST: Respiratory rate is 20 breaths per minute. She has fewer rales than previous and her breath sounds have improved at the bases compared with prior. Saturation is 96% on 2 liters. EXTREMITIES: Now shows +1 to +2 edema of both lower extremities. This has increased compared with yesterday's exam. The patient's intake and output for the prior 24 hours show a net balance of -346 mL. IMPRESSIONS: 1. Chronic obstructive pulmonary disease -- severe. 2. Critical aortic stenosis. 3. Pleural effusion. COMMENTS: The case was discussed with Dr. Prasad. She states that it was not feasible to arrange a transfer from here to [facility] in [place]. They are arranging for an outpatient evaluation by the surgeon. I asked the patient if she would consider going elsewhere and she said no. Reportedly, the first appointment we can arrange is for 10/23/2016. It is good that the patient seems to be clinically improving. I would like to recheck a chest x-ray tomorrow. I did spend approximately 30 minutes with this patient. She offers many questions and challenges as we chat. She is totally opposed to any idea that she should go to a rehab facility even short term. This was all discussed with her at length.
--- NOTE | 2016-09-27 17:20 | DIAGNOSTIC IMAGING REPORT ---
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 Improved aeration right lung base. Somewhat diminished prominence of pulmonary vasculature. IMPRESSION: 1. Improving pulmonary edema/congestive failure. 2. Small left pleural effusion/atelectasis moderately improved. Electronically signed by: Fred Metzger M.D. 09/27/2016 5:18 PM Dictated Date/Time: 09/27/2016 5:17 PM
[2016-09-27 19:25] VITALS: BP 134/75; PULSE 86; TEMP 36.4; O2SAT 95
[2016-09-27] MEDS: TRAVOPROST Z 0.004% OPH SOLN 2.5 ML BTL OPB SCH (21:00)
[2016-09-27] MEDS: ARTIFICIAL TEARS OP SOLN OPB SCH ×2 (21:00)
[2016-09-27] MEDS: RIVAROXABAN TAB 15 MG TAB PO SCH (21:00)
[2016-09-27] MEDS: LORAZEPAM 2 MG/ML 1 ML VIAL IV PRN (21:01)
[2016-09-27 23:40] VITALS: BP 164/87; PULSE 82; TEMP 35.9; O2SAT 96
[2016-09-28 04:05] VITALS: BP 152/87; PULSE 93; TEMP 35.8; O2SAT 95
--- NOTE | 2016-09-28 04:31 | Progress Note ---
Progress Note Date of Service September 28, 2016. Progress Note Patient found next to bed in room with bed alarm went off by RN. She was on falls precautions but reportedly she thought she could get to the toilet by herself. She did have lorazepam last night 0.5mg IV. She denies any chest pain, shortness of breath or dizziness leading to the fall. She feels she lost her balance. She notes she did hit the back of her head on the bed on the way down. She denies any current pain. Exam: VS stable CN 2->12 no deficits, PERRL, EOMI, no facial numbness or droop No focal upper or lower limb weakness or change in sensation MSK examination of upper and lower normal. No pain over hips or central back. Full ROM of hips without pain. Chest, upper and lower limbs non tender to palpation HS - loud systolic murmur (known awaiting TAVR) Chest clear to auscultation Assessment: Fall secondary to patient immobility +/- benzodiazepine use No injuries on examination from fall but given patient is on Xarelto I will get a stat CT. Plan - CT head stat - d/c lorazepam - neuro checks as per stroke protocol - Patient on falls precaution
[2016-09-28] MEDS: DILTIAZEM HCL 60 MG TAB PO SCH ×5 (05:40→23:34)
[2016-09-28] MEDS: LEVOTHYROXINE 75 MCG TAB PO SCH (06:16)
[2016-09-28 06:35] LABS: HEMATOCRIT 34.4 % (37-47); MEAN CELL VOLUME 90.1 fL (80-100); MEAN CORPUSCULAR HEMOGLOBIN 30.4 pg (25-34); MEAN CORPUSCULAR HGB CONC 33.7 g/dl (32-36); MEAN PLATELET VOLUME 9.9 fL (7.4-10.4); PLATELET COUNT 321 K/uL (130-400); RED BLOOD COUNT 3.82 M/uL (4.2-5.4); WHITE BLOOD COUNT 6.46 K/uL (4.8-10.8)
--- NOTE | 2016-09-28 06:38 | DIAGNOSTIC IMAGING REPORT ---
CT HEAD WITHOUT CONTRAST (CT) CLINICAL HISTORY: Head trauma. Patient on Xarelto. COMPARISON STUDY: 04/15/2013 TECHNIQUE: Axial CT of the brain is performed from the vertex to the skull base. IV contrast was not administered for this examination. CT DOSE: k FINDINGS: No intra or extra-axial mass lesions are visualized. There is no CT evidence of acute cortical infarction. There is no evidence of midline shift. There is no acute hemorrhage. No calvarial fractures are visualized. There are moderate white matter hypodensities likely on a small vessel basis. There is no evidence of pathologic ventricular dilatation. There is no evidence of acute sinusitis IMPRESSION: No acute intracranial findings Electronically signed by: Stephen Cobos M.D. 09/28/2016 6:37 AM Dictated Date/Time: 09/28/2016 6:36 AM
[2016-09-28 07:06] LABS: BUN/CREATININE RATIO 35.2 (10-20); CREATININE 0.65 mg/dl (0.60-1.20); POTASSIUM 3.9 mmol/L (3.5-5.1)
[2016-09-28 07:09] LABS: CALCIUM 8.2 mg/dl (8.5-10.1)
--- NOTE | 2016-09-28 07:25 | Family Medicine Progress Note ---
Progress Note Date of Service September 28, 2016. Subjective Pt evaluation today including: conversation w/ patient, physical exam, chart review, lab review The patient states that her breathing continues to be very poor, although she is currently tolerating nasal cannula and has not required bipap. She feels SOB with minimal exertion, although she is able to converse without dyspnea. Last night she got out of bed herself post administration of ativan, and fell hitting her head on the edge of her bed. Head CT was normal and she otherwise feels well except for tenderness on her scalp. She denies CP, palpitations, lightheadedness, nausea. Her diarrhea has improved. She is still keen for valve replacement at [facility] in [place]. Constitutional: No chills, No fever Respiratory: + cough, + dyspnea on exertion, + shortness of breath Cardiovascular: No chest pain, No edema, No palpitations Abdomen: + diarrhea, No constipation, No nausea, No pain, No vomiting Female : No dysuria, No hematuria Objective Vital Signs Date Time Temp Pulse Resp B/P Pulse Ox O2 Delivery O2 Flow Rate FiO2 09/28/16 04:05 35.8 93 25 152/87 95 Nasal Cannula 3.0 09/28/16 04:00 Nasal Cannula 3.0 09/28/16 00:02 Nasal Cannula 3.0 09/27/16 23:40 35.9 82 23 164/87 96 Nasal Cannula 3.0 09/27/16 20:00 Nasal Cannula 3.0 09/27/16 19:25 36.4 86 28 134/75 95 Nasal Cannula 6.0 09/27/16 16:00 Nasal Cannula 3.0 09/27/16 15:19 36.3 73 18 129/66 96 Nasal Cannula 2.0 09/27/16 14:28 Nasal Cannula 2.0 09/27/16 12:01 36.9 70 20 110/59 94 Room Air 09/27/16 12:00 Nasal Cannula 5.0 09/27/16 08:16 36.1 79 28 155/75 96 Nasal Cannula 6.0 09/27/16 08:00 Nasal Cannula 5.0 Physical Exam General Appearance: WD/WN, + mild distress ENT: + pertinent finding (Wears hearing aid) Neck: supple Respiratory/Chest: no respiratory distress, no accessory muscle use, + decreased breath sounds, + wheezing (scattered) Cardiovascular: + diastolic murmur, + systolic murmur, + irregularly irregular Abdomen: normal bowel sounds, non tender, soft Extremities: no calf tenderness, + pedal edema Neurologic/Psychiatric: alert, normal mood/affect, oriented x 3 Skin: normal color, warm/dry, no rash Laboratory Results Results Past 24 Hours Test 09/28/16 06:13 Range/Units White Blood Count 6.46 4.8-10.8 K/uL Red Blood Count 3.82 4.2-5.4 M/uL Hemoglobin 11.6 12.0-16.0 g/dL Hematocrit 34.4 37-47 % Mean Corpuscular Volume 90.1 80-100 fL Mean Corpuscular Hemoglobin 30.4 25-34 pg Mean Corpuscular Hemoglobin Concent 33.7 32-36 g/dl RDW Standard Deviation 40.8 36.4-46.3 fL RDW Coefficient of Variation 12.5 11.5-14.5 % Platelet Count 321 130-400 K/uL Mean Platelet Volume 9.9 7.4-10.4 fL Sodium Level 137 136-145 mmol/L Potassium Level 3.9 3.5-5.1 mmol/L Chloride Level 103 98-107 mmol/L Carbon Dioxide Level 26 21-32 mmol/L Anion Gap 8.0 3-11 mmol/L Blood Urea Nitrogen 23 7-18 mg/dl Creatinine 0.65 0.60-1.20 mg/dl Est Creatinine Clear Calc Drug Dose 47.7 ml/min Estimated GFR () 93.8 Estimated GFR (Non- 81.0 BUN/Creatinine Ratio 35.2 10-20 Random Glucose 133 70-99 mg/dl Calcium Level 8.2 8.5-10.1 mg/dl Assessment and Plan 86 year old female with a past medical history of COPD, Severe Aortic Stenosis, Atrial Fibrillation, CKD I-II, and Hypothyroidism that presents with worsening shortness of breath Acute Hypoxic Respiratory Failure - Symptoms currently stable with treatment regimen. Secondary to combination of atrial fibrillation, severe aortic stenosis, and some component of diastolic heart failure. CXR on admission showed early interstitial edema. Previous ECHO 08/02/15 showed LVEF > 70%, severe aortic stenosis with calculated BINA 0.5cm2, mild aortic regurgitation, moderate to severe mitral annular calcification with mild mitral regurgitation, grade I diastolic dysfunction. Recent ECHO shows new pulmonary HTN. Cardiology and pulmonology consulted - recs appreciated. - Bipap PRN and O2 via NC when tolerating - Lasix 20mg and HCTz 12.5mg for fluid overload - For cardiac catheterization tomorrow - Referral to [facility] in [place] for TAVR - Outpatient appt scheduled . - In progress of arranging transport for expedited direct transfer. Will call Enma at [facility] at [phone] once transportation confirmed. COPD - Shortness of breath improving - Symbicort 2 puff BID - Duoneb - Xopenex and Atrovent PRN - Spiriva 1 puff qAM - Methylprednisone 40mg q12h - Pantoprazole 40mg daily for GI prophylaxis Diarrhea - patient not on antibiotics currently, but did complete a course recently. Diarrhea improved. stool sample not collected for c.diff toxin Atrial Fibrillation with RVR - Currently rate controlled. Received Diltiazem drip on admission with bolus, then switched to PO. TSH low with upper normal FT4 , history of taking excess Synthroid for weight loss - PO Diltiazem SR 120mg BID - Xarelto 15mg qPM - held tonight in view of catheterization tomorrow Leukocytosis - Resolved. Possibly secondary to steroid use after previous admission. WBC on admission 15.95, now WNL. Afebrile, Blood Cultures negative, CXR shows no infiltrates Hematuria - UA positive for RBC. 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 Extensive work up has already been done. Hypertension - Lasix 20mg - HCTz 12.5mg today and to be re-started after cardiac catheterization Hypothyroidism - Low TSH on admission. Patient possibly taking extra doses of Synthroid for weight loss - Synthroid 75mcg - Monitor TSH as outpatient DVT Prophylaxis - Anticoagulated with Xarelto Code Status: DNR Continued [facility] stay due to: home environment unsafe for pt Discharge planning: acute transfer Resident Tracking Resident Involvement: Resident Care Provided Care Provided: Adult Hospital Medicine Reviewed: Pt Seen/Exam by Me History Resident Physician Supervision Note: I interviewed and examined the patient. Discussed with Dr. Hernandez and agree with findings and plan as documented in the note. Any exceptions or clarifications are listed here: Patient is completely off her nasal cannula while sitting there talking to me for over 15 minutes and not short of breath. Is agreeable to cardiac catheterization tomorrow in preparation for TAVR as discussed with CT surgery physician . at [facility]. She will also need a CT angiogram TAVR protocol once she goes to the hospital. The hope is to get her there over the weekend if her family is willing to pay for the ambulance ride. Tele A-fib with rates in 90s, vitals reviewed Mild resp distress, but very talkative, racing thoughts irreg irreg with mild tachycardia, 3 out of 6 harsh systolic ejection murmur at the right upper sternal border decreased BS throughout but no wheezes crackles or rhonchi Ext 1+ pitting edema of the ankles and distal legs, no calf tenderness, sarcopenia SKin no rashes 86 yo female with severe , acute on chronic hypoxemic resp failure, severe COPD, acute on chronic diastolic CHF. -Continue lasix and add her home HCTZ back on as per her request and for pitting edema -We have arranged an outpatient evaluation with at [facility] which unfortunately is not until October 23-patient is absolutely refusing SNF in the meantime-we will continue to work on either direct transfer approval versus convincing her to go to SNF--> they will accept her as a direct transfer if her family is willing to pay for the ambulance ride -Cardiac cath tomorrow -continue BiPAP prn -APpreciate Cardiology and Pulm consults -continue steroids IV and taper down -continue supportive care for severe anxiety, but with some paranoia as well--> Psychiatry consult appreciated the patient is unwilling to take any psychiatric medications Documented By: Greta Prasad
[2016-09-28 08:24] VITALS: BP 136/68; PULSE 67; TEMP 36.5; O2SAT 98
[2016-09-28] MEDS: BUDESONIDE/FORMOTEROL FUMARATE 80/4.5 60 PUFFS/INHALER INH SCH ×2 (08:41→21:12)
[2016-09-28] MEDS: DOCUSATE SODIUM/SENNA 50/8.6MG TAB PO SCH ×2 (08:41→21:12)
[2016-09-28] MEDS: METHYLPREDNISOLONE IV 40 MG in SYRINGE 0 ML IV SCH ×2 (08:42→21:12)
[2016-09-28] MEDS: FUROSEMIDE 20 MG TAB PO SCH (08:42)
[2016-09-28] MEDS: MAGNESIUM CHLORIDE 64MG DELAYED REL TAB PO SCH (08:42)
[2016-09-28] MEDS: PANTOprazole SOD 40 MG TAB PO SCH (08:43)
[2016-09-28] MEDS: MULTIVITAMIN TAB PO SCH (08:43)
[2016-09-28] MEDS: ARTIFICIAL TEARS OP SOLN OPB SCH ×2 (08:43)
[2016-09-28] MEDS: DILTIAZEM SR 60 MG CAP PO SCH ×2 (09:45→21:18)
[2016-09-28] MEDS: TIOTROPIUM BROMIDE 5 PUFF/90 MCG INH INH SCH (09:45)
--- NOTE | 2016-09-28 11:00 | CARDIOLOGY PROGRESS NOTE ---
DATE: 09/28/2016 DATE: 09/28/2016. HISTORY OF PRESENT ILLNESS: Mrs. Lane remains in room 207. Unfortunately, she had a fall overnight. She was very anxious regarding the possibility of group home placement following extensive discussions yesterday, and she was given a benzodiazepine. She tried to get out of her bed by herself to walk to the restroom. Unfortunately, she fell and struck her posterior head. Subsequent CT scan showed no intracranial abnormalities. Nonetheless, the patient continues to have tachypnea and dyspnea, even at rest. She also remains in atrial fibrillation, but her ventricular response rate is well controlled at this time. Her CHF exacerbation is secondary to diastolic dysfunction, severe/critical calcific aortic stenosis, moderate concentric LVH with diastolic dysfunction, and atrial fibrillation. As it is, the patient is scheduled for evaluation for TAVR on 10/23/2016 at [facility] in [place]. It is not feasible to do a direct transfer to [facility] and patient refuses transfer to [facility] for further evaluation for TAVR. The patient offers no other complaints. She denies any chest pains, heaviness, tightness, or pressure. No nausea, vomiting, diaphoresis. She denies any palpitations, syncope, or near syncope. PHYSICAL EXAMINATION: VITAL SIGNS: Temperature is 36.5 degrees Celsius, pulse is 70-75 and irregularly irregular, respiratory rate is 22 and rapid. Blood pressure is 136/68 and SpO2 is 98% on 5 liters oxygen via nasal cannula. I's and O's -300 mL overnight. GENERAL: The patient in mild respiratory distress, tachypneic. HEAD, EYES, EARS, NOSE, AND THROAT: EOMs intact. Sclerae are anicteric. Face is symmetric. No perioral cyanosis. NECK: No obvious JVD. Jugular venous pressure is elevated with wide respiratory variation. CHEST AND LUNGS: With diminished breath sounds throughout, no wheezes, rales or rhonchi. CARDIOVASCULAR: S1 and S2 are irregularly irregular at a rate of approximately 70 beats per minute with a grade 3/6 crescendo decrescendo systolic murmur best right second intercostal space and radiating towards the suprasternal notch and left sternal border. Aortic valve closure sound is not audible. No diastolic murmurs. No gallops or rubs. PMI is nondisplaced. No lifts, heaves, or thrills. No abdominal, aortic or renal bruits. ABDOMINAL EXAMINATION: Bowel sounds present. EXTREMITIES: Without clubbing or cyanosis. There is +1 pitting edema in the right leg, trace pitting edema of the left. NEUROLOGIC EXAMINATION: The patient is awake, alert, and interactive. Answers questions as she normally would. No focal neurologic deficits. LABORATORY DATA: White blood cell count 6.46. Hemoglobin 11.6 g/dl, hematocrit 34.4%, platelet count is 321,000. Sodium 137 mmol/L, potassium 3.9 millimoles per liter. BUN 23 mg/dL, creatinine 0.65 mg/dL. Random glucose 133 mg/dL. His CT scan shows no acute intracranial findings. Chest x-ray performed 09/27/2016 shows improving pulmonary edema, with a small left pleural effusion. Atelectasis is moderately improved. ASSESSMENT: 1. Acute diastolic congestive heart failure. 2. Chronic obstructive pulmonary disease. 3. Severe pulmonary hypertension. 4. Severe aortic stenosis. 5. Left ventricular diastolic dysfunction. 6. Chronic atrial fibrillation, rate controlled and anticoagulated. 7. Severe chronic obstructive pulmonary disease. 8. Diagnosis mentioned earlier. PLAN: 1. Heart failure appears to be improving. 2. Recommend ongoing treatment with Cardizem 60 mg every 6 hours, oral Lasix, and potassium chloride. 3. Continue Xarelto 15 mg every day to reduce risk of stroke associated with Afib. 4. Ongoing treatment of underlying COPD exacerbation including IV steroids, nebulizers, and inhalers. 5. Continue supplemental oxygen. 6. I have discussed the logistical implication / hardships re: patient's request to go to [facility] in [place]. It is not feasible to do a direct transfer, but outpatient evaluation has been set up for TAVR. 7. The quandary is managing the patient in the meantime. Once compensated from a heart failure standpoint could arrange for care at a fdc facility (which patient is strongly opposed to) or else have very close, daily followup with home health. Close monitoring of daily I&Os, body weights, O2 saturations, dietary salt intake, etc.. 8. We will continue to follow. JOSELINE
--- NOTE | 2016-09-28 14:05 | Psychiatric Consultation ---
Consultation Date of Consultation September 28, 2016. Identifying Data Anisa Lane is a 86-year-old female with multiple medical conditions including severe aortic stenosis, A. fib with RVR, chronic cerebral ischemia, COPD, demyelinating disorder, hypothyroidism, osteoporosis and other lesser medical conditions, who was admitted to the hospital with shortness of breath. We are consulted to evaluate anxiety and paranoia. Information is gathered from the patient with uncertainty as to reliability. Chief Complaint "Of course I'm anxious. You would be too if they had done all this to you!". History of Present Illness Anisa Lane is an 86-year-old woman with multiple medical conditions as listed below, who was readmitted to our hospital only days after discharge, with shortness of breath and aortic insufficiency, requiring a TAVR. Apparently the patient has been quite distressed, making accusations of improper medical care, and was provided with a small dose of Ativan 0.5 mg to aid in relaxation. Unfortunately she got out of bed without assistance and experienced a fall last evening. At the time of my interview, the patient is walking around her room and is distressed about the location of her phone and her remote. She finds fault with everything from the shape of her bed to the cleanliness of the room. We eventually settled down in some chairs and she begins a long diatribe about her medical care going back years. She makes many paranoid statements that things had been missed, covered up, people fired based on her treatment. She talks about being a functional, respected woman in the community until her medical conditions caused her to be unable to continue to be so. The general demeanor of her discussion is that she trusts no one because she is a single person and has no family in the immediate area. She is therefore overly diligent about questioning decisions about her own medical care. She has requested to go to [place], to [facility] for her aortic valve replacement, because she has family there who have also had cardiac procedures with them. She seems to be somewhat forgetful of information that is provided to her, not even remembering the name of her nurse today. She is worried that they are trying to put her in a m[facility] as opposed to following her requests and getting her transferred to [place], which is very far from the truth. She talks as if she believes no one trusts her or believes her to be a competent individual, leading to her being all the more phrenetic in her attempts to convince us. It was only after allowing her to cathart for an extended period of time that she was willing to calm down long enough to ask me how I could be helpful to her. After gathering information, telling her that they are working toward getting her transferred by ambulance to [facility] as quickly as possible, she was able to calm down. She was not tolerant of any in-depth questioning about mood, anxiety or anything else as that only made her defensive and fueled her phrenetic fire to convince me that "I'm not crazy". Past Psychiatric History Current OP Treatment: no current treatment Prior OP Treatment: no prior treatment Access to a Gun: No Suicide Attempts: No Past Medical/Surgical History History of Concussion/Seizure: No Allergies Allergies: Coded Allergies: Clonidine (Verified Allergy, Mild, SHORTNESS OF BREATH, 09/23/16) Iodinated Diagnostic Agents (Verified Allergy, Unknown, "IT JUST AFFECTS ME AND I CAN'T EXPLAIN IT", 09/23/16) Latex1 -Allergic Contact Dermititis (Verified Allergy, Unknown, RASH, ) Penicillins (Verified Allergy, Unknown, UNKNOWN, 09/23/16) Sulfa Antibiotics (Verified Allergy, Unknown, "SWELLING IN MOUTH AND DRIED OUT", 09/23/16) Home Medications Scheduled Budesonide/Formoterol Fumarate (Symbicort 80/4.5 Inhaler), 2 PUFFS PO BID Carboxymethylcellulose-Glyceri (Refresh Optive Advanced), 1 DROP OPB HS Diltiazem Hcl Ext Rel (Tiazac), 360 MG PO QAM Ergocalciferol (Vitamin D), 50,000 UNITS PO WK Hydrochlorothiazide (Hydrochlorothiazide), 1 TAB PO HS Levothyroxine Sodium (Levothyroxine Sodium), 75 MCG PO QAM Magnesium Chloride (Slow-Mag Tab), 64 MG PO QAM Multivitamin (Multivitamin), 1 TAB PO QAM Olmesartan Medoxomil (Benicar), 40 MG PO QPM Oxygen (Oxygen), 3-4 LITERS NA HS Rivaroxaban (Xarelto), 15 MG PO QPM Sennosides-Docusate Sodium (Stool Softener), 1 TAB PO BID Travoprost (Travatan Z), 1 DROPS OPB HS Scheduled PRN Furosemide (Lasix), 20 MG PO DAILY PRN for WEIGHT GAIN Ipratropium [place] (Ipratropium [place]), 0.5 MG NEB Q6H PRN for Shortness of Breath Levalbuterol (Levalbuterol HCl), 0.63 MG NEB Q6H PRN for Shortness of Breath Potassium Chloride (Micro-K Ext Rel), 10 MEQ PO DAILY PRN for WITH LASIX Family History Heart disease Hypertension History of Substance Abuse: Yes Alcohol Use Alcohol Use In Past 12 Months: No Smoking Use Smoking Status: Former Smoker Personal History Education: graduated from high school, started college Relationship History: Review of Systems Unable to obtain due to the patient's level of emotional distress Examination Physical Examination As per the primary team Vital Signs Vital Signs Past 12 Hours Date Time Temp Pulse Resp B/P Pulse Ox O2 Delivery O2 Flow Rate FiO2 09/28/16 08:24 36.5 67 24 136/68 98 Nasal Cannula 5.0 09/28/16 04:05 35.8 93 25 152/87 95 Nasal Cannula 3.0 09/28/16 04:00 Nasal Cannula 3.0 Laboratory Results Last 24 Hours Test 09/28/16 06:13 White Blood Count 6.46 K/uL Red Blood Count 3.82 M/uL Hemoglobin 11.6 g/dL Hematocrit 34.4 % Mean Corpuscular Volume 90.1 fL Mean Corpuscular Hemoglobin 30.4 pg Mean Corpuscular Hemoglobin Concent 33.7 g/dl RDW Standard Deviation 40.8 fL RDW Coefficient of Variation 12.5 % Platelet Count 321 K/uL Mean Platelet Volume 9.9 fL Sodium Level 137 mmol/L Potassium Level 3.9 mmol/L Chloride Level 103 mmol/L Carbon Dioxide Level 26 mmol/L Anion Gap 8.0 mmol/L Blood Urea Nitrogen 23 mg/dl Creatinine 0.65 mg/dl Est Creatinine Clear Calc Drug Dose 47.7 ml/min Estimated GFR () 93.8 Estimated GFR (Non- 81.0 BUN/Creatinine Ratio 35.2 Random Glucose 133 mg/dl Calcium Level 8.2 mg/dl Impression / Recommendations Impression 86-year-old woman with severe aortic valve disease, recommended to have a replacement. We are consulted to evaluate her level of anxiety and paranoia. Unfortunately, the patient is not in a place where she would be amenable to a discussion about anxiety, depression and the benefits of medications. She feels that she has been mistreated by physicians in the past, leading to poor outcome to her medical conditions. The best intervention I gave her was my time to sit and cathart, and then she was willing to talk about interventions to help her remain calm. She has a very strong relationship with God and was encouraged to use that to keep her grounded in the moment, as she spends a great deal of time and emotional energy talking about the past and worrying about the future. I do not think that benzodiazepines are a good idea in view of her fall last night, and I would not want to start any antipsychotics given her cardiac conditions. It is clear that she feels out of control, alone, and fears her . I believe the best intervention at this time is to allow her to have time to talk, process the events, and find some comfort in trusting that another individual hears her. Her nurse has called a pillowcase cleaner, Arthur Carvalho, to alert her that the patient has questions and would like some of her time. If the patient becomes distressed, please feel free to call our liaison nurse to see if she has time to sit and talk. If the patient's condition worsens, we may reconsider our position on medications but for now will recommend counseling to mediate anxiety and fear. 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 If needed, feel free to call the liaison nurse to spent time with the patient if needed. - Difficult to know if she is truly paranoid, or whether her reports of poor treatment are distorted or embellished, but it is a moot point as she is unwilling to consider psychiatric meds. If she is not going to be transferred to [place] soon, and her emotional state is interferring with her medical care , I would first suggest that we get supplemental from her son with respect to her baseline.
[2016-09-28 15:25] VITALS: BP 120/60; PULSE 68; TEMP 36.3; O2SAT 95
[2016-09-28] MEDS ORDERED: HYDROCHLOROTHIAZIDE 25 MG TAB PO ONE (17:15)
--- NOTE | 2016-09-28 18:10 | PULMONARY PROGRESS NOTE ---
DATE: 09/28/2016 TIME: 05:45 p.m. SUBJECTIVE: The patient is very agitated today. She suffered a fall during the night last night according to nursing staff. She had had some Ativan before bed. Apparently, she did not hurt herself to any substantial degree. Her breathing seems to be improved. She is very upset that her insurance will not pay for her transfer to the [facility]. OBJECTIVE: GENERAL: The patient was in no distress. She was agitated. VITAL SIGNS: Temperature is 36.3. Heart rate was 68 per minute. The rhythm is irregular. Blood pressure is 120/60. The respiratory rate is 20 breaths per minute. The saturation was 95% on 3 liters. LUNGS: Dc were clear bilaterally. EXTREMITIES: Revealed +1 edema of both lower extremities. This was similar to yesterday. LABORATORY DATA: White count today is 6.46. This has been improving regularly since admission. Hemoglobin is 11.6. Platelets are 321,000. Electrolytes show sodium 137, potassium 3.9, chloride 103, and bicarbonate 26. The BUN is 23 with a creatinine of 0.65. Reportedly, the patient is to have a cardiac catheterization tomorrow. This was arranged earlier today through [facility]. This would be for the hopes of getting her evaluated there early in the week if the patient can arrange transportation. Chest x-ray done yesterday shows improvement in the cardiac congestion. The aeration of the lower lungs has improved. The effusion, which was small, is now smaller. IMPRESSIONS: 1. Chronic obstructive pulmonary disease - severe. 2. Critical aortic stenosis. 3. Left pleural effusion. RECOMMENDATIONS: Agree with current therapy.
[2016-09-28 20:00] VITALS: BP 147/44; PULSE 77; TEMP 36.3; O2SAT 93
[2016-09-28] MEDS: TRAVOPROST Z 0.004% OPH SOLN 2.5 ML BTL OPB SCH (21:12)
[2016-09-28] MEDS: LORAZEPAM 2 MG/ML 1 ML VIAL IV PRN (21:13)
[2016-09-28 23:58] VITALS: BP 136/84; PULSE 63; TEMP 36.3; O2SAT 97
[2016-09-29 04:14] VITALS: BP 122/63; PULSE 72; TEMP 36.4; O2SAT 96
[2016-09-29] MEDS: DILTIAZEM HCL 60 MG TAB PO SCH ×4 (05:30→23:42)
[2016-09-29] MEDS: LEVOTHYROXINE 75 MCG TAB PO SCH (05:41)
[2016-09-29 07:58] VITALS: BP 138/75; PULSE 60; TEMP 37; O2SAT 100
--- NOTE | 2016-09-29 08:43 | Family Medicine Progress Note ---
Progress Note Date of Service September 29, 2016. Subjective Pt evaluation today including: conversation w/ patient, physical exam, chart review, lab review The patient states that her breathing continues to be very poor, although she is currently tolerating nasal cannula and has not required bipap for over 2 days. She feels SOB with minimal exertion, although she is able to converse without dyspnea. She has had no further falls. She denies CP, palpitations, lightheadedness, nausea. Her diarrhea has mostly resolved. Constitutional: No chills, No fever Respiratory: + dyspnea on exertion, + shortness of breath, No cough Cardiovascular: + edema, No chest pain, No palpitations Abdomen: No diarrhea, No nausea, No pain, No vomiting Objective Vital Signs Date Time Temp Pulse Resp B/P Pulse Ox O2 Delivery O2 Flow Rate FiO2 09/29/16 07:58 37.0 60 20 138/75 100 Nasal Cannula 3.0 09/29/16 04:14 36.4 72 18 122/63 96 2.0 09/29/16 04:00 Nasal Cannula 3.0 09/28/16 23:59 Nasal Cannula 3.0 09/28/16 23:58 36.3 63 18 136/84 97 3.0 09/28/16 20:45 Nasal Cannula 3.0 09/28/16 20:00 36.3 77 28 147/44 93 Nasal Cannula 3.0 09/28/16 16:00 Nasal Cannula 3.0 09/28/16 15:25 36.3 68 24 120/60 95 Nasal Cannula 3.0 09/28/16 12:00 Nasal Cannula 3.0 Physical Exam General Appearance: WD/WN, no apparent distress Eyes: normal inspection ENT: + pertinent finding (Hearing aid) Neck: supple Respiratory/Chest: no respiratory distress, no accessory muscle use, + wheezing (scattered) Cardiovascular: + diastolic murmur, + systolic murmur, + irregularly irregular Abdomen: normal bowel sounds, non tender, soft Extremities: normal inspection, no calf tenderness, + pedal edema Neurologic/Psychiatric: alert, normal mood/affect, oriented x 3 Skin: normal color, warm/dry, no rash Laboratory Results Results Past 24 Hours Test 09/29/16 11:41 09/29/16 11:55 09/29/16 12:10 09/29/16 12:29 Range/Units Bedside Blood Gas pH (LAB) 7.43 7.41 7.35-7.45 Bedside Blood Gas pCO2 (LAB) 41 42 35-46 mmHg Bedside Blood Gas pO2 (LAB) 102 36 80-95 mmHg Bedside Blood Gas HCO3 (LAB) 27 26 19-24 meq/L Bedside Blood Gas Total CO2 29 28 24-31 mEq/l Bedside Blood Gas Base Excess (LAB) 3.0 2.0 -9-1.8 meq/L Bedside Blood Gas O2 Saturation 98.0 69.0 90-95 % Kaolin Activated Coagulation Time 167 291 94-140 SECONDS Test 09/29/16 12:31 Range/Units Bedside Blood Gas pH (LAB) 7.41 7.35-7.45 Bedside Blood Gas pCO2 (LAB) 43 35-46 mmHg Bedside Blood Gas pO2 (LAB) 33 80-95 mmHg Bedside Blood Gas HCO3 (LAB) 27 19-24 meq/L Bedside Blood Gas Total CO2 28 24-31 mEq/l Bedside Blood Gas Base Excess (LAB) 2.0 -9-1.8 meq/L Bedside Blood Gas O2 Saturation 63.0 90-95 % Assessment and Plan 86 year old female with a past medical history of COPD, severe aortic stenosis, atrial fibrillation, CKD I-II, and hypothyroidism admitted with worsening shortness of breath Acute Hypoxic Respiratory Failure - Symptoms currently stable with treatment regimen. Secondary to combination of atrial fibrillation, severe aortic stenosis, and some component of diastolic heart failure. CXR on admission showed early interstitial edema. Previous ECHO 08/02/15 showed LVEF > 70%, severe aortic stenosis with calculated BINA 0.5cm2, mild aortic regurgitation, moderate to severe mitral annular calcification with mild mitral regurgitation, grade I diastolic dysfunction. Recent ECHO shows new pulmonary HTN. Cardiology and pulmonology consulted - recs appreciated. Cardiac catheterization performed on 09/29 without complication - Bipap PRN and O2 via NC when tolerating - Lasix 20mg and HCTz 12.5mg for fluid overload - Referral to [facility] in [place] for TAVR - Outpatient appt scheduled - In progress of arranging transport for expedited direct transfer, coordinating with Enma at [facility] at [phone] COPD - Shortness of breath improving - Symbicort 2 puff BID - Duoneb - Xopenex and Atrovent PRN - Spiriva 1 puff qAM - Methylprednisone 40mg q12h - Pantoprazole 40mg daily for GI prophylaxis Diarrhea - patient not on antibiotics currently, but did complete a course recently. Diarrhea improved. Stool sample not collected for c.diff toxin Atrial Fibrillation with RVR - Currently rate controlled. Received Diltiazem drip on admission with bolus, then switched to PO. TSH low with upper normal FT4 , history of taking excess Synthroid for weight loss - PO Diltiazem SR 120mg BID - Xarelto 15mg qPM Leukocytosis - Resolved. Possibly secondary to steroid use after previous admission. WBC on admission 15.95, now WNL. Afebrile, Blood Cultures negative, CXR shows no infiltrates Hematuria - UA positive for RBC. 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 Extensive work up has already been done. Hypertension - BP adequately controlled - Lasix 20mg - HCTz 12.5mg Hypothyroidism - Low TSH on admission. Patient possibly taking extra doses of Synthroid for weight loss - Synthroid 75mcg - Monitor TSH as outpatient DVT Prophylaxis - Anticoagulated with Xarelto Continued [facility] stay due to: abnormal vital signs, ambulation difficulties, multiple IV medications needed Discharge planning: uncertain Resident Tracking Resident Involvement: Resident Care Provided Care Provided: Adult [facility] Medicine Reviewed: Pt Seen/Exam by Me History Resident Physician Supervision Note: I interviewed and examined the patient. Discussed with Dr. Hernandez and agree with findings and plan as documented in the note. Any exceptions or clarifications are listed here: Had cardiac cath today and is still recovering from anesthesia, feels very calm and is very pleasant. No shortness of breath Tele A-fib with rates in 90s, vitals reviewed No acute distress irreg irreg with normal rate, 3 out of 6 harsh systolic ejection murmur at the right upper sternal border decreased BS throughout but no wheezes crackles or rhonchi Ext 1+ pitting edema of the ankles and distal legs, no calf tenderness, sarcopenia SKin no rashes 86 yo female with severe , acute on chronic hypoxemic resp failure, severe COPD, acute on chronic diastolic CHF. -Continue lasix and added her home HCTZ back on as developed pitting edema in the legs -We have arranged an outpatient evaluation with at [facility] which unfortunately is not until October 23-patient is absolutely refusing SNF in the meantime-we will continue to work on either direct transfer approval versus convincing her to go to SNF--> they will accept her as a direct transfer if her family is willing to pay for the ambulance ride-we'll hopefully get her there on Sunday -Cardiac cath for preoperative for TAVR completed here today -continue supplemental O2 -APpreciate Cardiology and Pulm consults -continue steroids IV and taper down -continue supportive care for severe anxiety, but with some paranoia as well--> Psychiatry consult appreciated the patient is unwilling to take any psychiatric medications Documented By: Greta Prasad
[2016-09-29] MEDS: MAGNESIUM CHLORIDE 64MG DELAYED REL TAB PO SCH (09:00)
[2016-09-29] MEDS: FUROSEMIDE 20 MG TAB PO SCH (09:00)
[2016-09-29] MEDS: PANTOprazole SOD 40 MG TAB PO SCH (09:00)
[2016-09-29] MEDS: DOCUSATE SODIUM/SENNA 50/8.6MG TAB PO SCH ×2 (09:00→21:00)
[2016-09-29] MEDS: MULTIVITAMIN TAB PO SCH (09:00)
[2016-09-29] MEDS: METHYLPREDNISOLONE IV 40 MG in SYRINGE 0 ML IV SCH ×2 (09:26→21:24)
[2016-09-29] MEDS: TIOTROPIUM BROMIDE 5 PUFF/90 MCG INH INH SCH (09:26)
[2016-09-29] MEDS: BUDESONIDE/FORMOTEROL FUMARATE 80/4.5 60 PUFFS/INHALER INH SCH ×2 (09:26→21:23)
[2016-09-29] MEDS: DILTIAZEM SR 60 MG CAP PO SCH ×2 (09:27→21:24)
--- NOTE | 2016-09-29 09:27 | PULMONARY PROGRESS NOTE ---
DATE: 09/29/2016 TIME: 09:00 a.m. SUBJECTIVE: The patient had a good night. She was given something for sleep and apparently, she feels more relaxed this morning. She was quite calm for her. She is not having any shortness of breath. She is anticipating getting her catheterization today. It is notable that she does have [employer]. She told me that she developed what sounds like hives when she had had this in the past. She has been on methylprednisolone for several days. OBJECTIVE: GENERAL: The patient was comfortable at rest. VITAL SIGNS: Temperature is 37 degrees. Heart rate is 76 per minute and irregular. Blood pressure is 138/75. LUNGS: Dc were fairly clear bilaterally. No active wheezing was heard. No rales were heard today. ABDOMEN: Soft and nontender. EXTREMITIES: The patient's low legs this morning did not show significant edema. It is less than yesterday, although this is in the morning and yesterday, was later in the day. IMPRESSIONS: 1. Chronic obstructive pulmonary disease - severe. 2. Critical aortic stenosis. 3. Small left pleural effusion. The case was discussed with Dr. Prasad. There is still some question as to whether transport to [place] can be arranged for her from a cost perspective. I believe she is still going to have the catheterization today or at least it is planned. From a pulmonary perspective, she is quite stable. After the catheterization, I believe we can change her over to prednisone starting tomorrow.
[2016-09-29] MEDS ORDERED: HEPARIN SOD (PORCINE) 1000 UNIT/ML 10 ML VIAL ONE (11:06)
[2016-09-29] MEDS ORDERED: NiCARDipine HCL INJ 2.5 MG/ML 10 ML AMP ONE (11:06)
[2016-09-29] MEDS ORDERED: MIDAZOLAM HCL 1 MG/ML 2ML VIAL ONE (11:07)
[2016-09-29] MEDS ORDERED: NITROGLYCERIN/D5W 100MCG/ML 20ML SYR ONE (11:07)
[2016-09-29] MEDS ORDERED: FENTANYL CITRATE INJ 50 MCG/1 ML 2 ML VIAL ONE (11:07)
--- NOTE | 2016-09-29 11:10 | Procedure Note ---
Pre-Mod Sedation Assessment General Date of Moderate Sedation: September 29, 2016. Vital Signs: Vital Signs Past 12 Hours Date Time Temp Pulse Resp B/P Pulse Ox O2 Delivery O2 Flow Rate FiO2 09/29/16 07:58 37.0 60 20 138/75 100 Nasal Cannula 3.0 09/29/16 04:14 36.4 72 18 122/63 96 2.0 09/29/16 04:00 Nasal Cannula 3.0 09/28/16 23:59 Nasal Cannula 3.0 09/28/16 23:58 36.3 63 18 136/84 97 3.0 Review Cardiovascular: + systolic murmur, + irregularly irregular Abdomen: non tender, soft Lungs: lungs clear Pre-Sedation Airway Assessment Oral Cavity: WNL Able to Visualize Vocal Cords: No Short Thick Neck: No Hx of Sleep Apnea: No Smoking Status: Former Smoker ASA Classification: Class III Procedure Planning Contraindications-for Mod Sed: None Yes Notes The planned sedation has been discussed with the patient and consent obtained. I have identified the patient, determined the appropriateness of sedation and have assessed the patient immediately prior to the procedure. All medicine(s) and interventions are by my order.
[2016-09-29] MEDS ORDERED: DiphenhydrAMINE HCL 50 MG/ML VIAL ONE (11:17)
[2016-09-29] MEDS ORDERED: ADENOSINE IV SOLN 3 MG/ML 20 ML VIAL ONE (11:48)
--- NOTE | 2016-09-29 12:48 | Procedure Note ---
Post-Mod Sedation Assessment General Date of Moderate Sedation September 29, 2016. Vital Signs: Vital Signs Past 12 Hours Date Time Temp Pulse Resp B/P Pulse Ox O2 Delivery O2 Flow Rate FiO2 09/29/16 12:35 65 16 143/78 95 Room Air 09/29/16 07:58 37.0 60 20 138/75 100 Nasal Cannula 3.0 09/29/16 04:14 36.4 72 18 122/63 96 2.0 09/29/16 04:00 Nasal Cannula 3.0 Review - Discharge Criteria Vital Signs Stable: Yes Alert/Oriented/Conversant: Yes Returned to Baseline Mental St: Yes Nausea Absent/Minimal: Yes Pain/Discomfort/Absent/Minimal: Yes Normal/Baseline Respirations: Yes Active Bleeding?: No Pt Received D/C Instructions: N/A Prescriptions Given: None Specific Proced. D/C Criteria Distal Pulses Present (Cardiac: Yes Groin site assessed-Card Cath: N/A Voided Prior To Discharge: N/A Discharged Patients Adult Escort/Transportation: N/A
[2016-09-29] MEDS ORDERED: SODIUM CHLORIDE 0.9% 1000ML 250 ML IV PRN (12:52)
[2016-09-29] MEDS: SODIUM CHLORIDE 0.9% 1000ML 1,000 ML IV SCH (12:52)
[2016-09-29 12:53] LABS: ISTAT ARTERIAL BLOOD GAS HCO3 26 meq/L (19-24); ISTAT ARTERIAL BLOOD GAS PCO2 42 mmHg (35-46); ISTAT ARTERIAL BLOOD GAS PO2 36 mmHg (80-95); ISTAT ARTERIAL BLOOD GAS pH 7.41 (7.35-7.45); ISTAT CARBON DIOXIDE 28 mEq/l (24-31)
[2016-09-29 12:53] LABS: ISTAT ARTERIAL BLOOD GAS HCO3 27 meq/L (19-24); ISTAT ARTERIAL BLOOD GAS PCO2 41 mmHg (35-46); ISTAT ARTERIAL BLOOD GAS PO2 102 mmHg (80-95); ISTAT ARTERIAL BLOOD GAS pH 7.43 (7.35-7.45); ISTAT CARBON DIOXIDE 29 mEq/l (24-31)
[2016-09-29] MEDS ORDERED: ATROPINE SULFATE 0.1 MG/ML 5ML SYR IV PRN (13:00)
[2016-09-29] MEDS ORDERED: ONDANSETRON INJ 2 MG/ML 2 ML VIAL IV PRN (13:00)
[2016-09-29] MEDS ORDERED: ACETAMINOPHEN 325 MG TAB PO PRN (13:00)
[2016-09-29 13:09] LABS: ISTAT ARTERIAL BLOOD GAS HCO3 27 meq/L (19-24); ISTAT ARTERIAL BLOOD GAS PCO2 43 mmHg (35-46); ISTAT ARTERIAL BLOOD GAS PO2 33 mmHg (80-95); ISTAT ARTERIAL BLOOD GAS pH 7.41 (7.35-7.45); ISTAT CARBON DIOXIDE 28 mEq/l (24-31)
--- NOTE | 2016-09-29 13:13 | Cardiac Catheterization ---
Procedure Note Procedure Date September 29, 2016. Pre-Procedure Diagnosis Valvular Disease, CHF AUC Score 7 Post-Procedure Diagnosis Mild CAD, Elevated Intracardiac Pressures Procedure(s) Performed Coronary Angiography, Right Heart Cath, Fractional Flow [place] [employer] Dr. Mack Nitroglycerin Distributor(s) Obdulio Menjivar, [facility] Medication(s) Fentanyl, Heparin, Nicardipine (intra arterial), Versed, Lidocaine 1%, Adenosine , Diphenhydramine Summary of Findings Clinical indications: The patient has severe aortic stenosis. She had previously declined aortic valve replacement. She now has progressively worsening congestive heart failure. Recent echocardiogram performed on September 24, 2016 revealed hyperdynamic left ventricular systolic function, moderate concentric left ventricular hypertrophy, mild mitral regurgitation, mild-to- moderate tricuspid regurgitation, estimated right ventricular systolic pressure greater than 60 millimeters of mercury, and calculated aortic valve area is 0.43 square centimeters. Mild aortic regurgitation. The peak gradient across aortic valve was 4.29 meters/second. The mean gradient was 45.6 millimeters Hg . The dimensionless index was 0.20. Patient also has chronic atrial fibrillation. She is now agreeable to being evaluated for TAVR. It is tentatively planned for her to undergo this evaluation at [facility] in [facility] [place]. Cardiac catheterization is indicated prior to undergoing TAVR. Procedure: Right heart catheterization, selective coronary angiography, IFR and FFR measurement of ostial LAD and left circumflex stenoses. Catheterization site: 6 Guyanese slender glide sheath right radial artery. 7 Guyanese sheath right femoral vein. Cath site: 6 Fr Slender Glidesheath right radial artery. 7 Fr sheath right femoral vein. Catheters: 7 Guyanese Taiban-Nithya catheter for right heart catheterization. 5 Guyanese brachial 3.5 diagnostic catheter for coronary angiography. FFR measurement of ostial LAD and left circumflex stenoses were performed using a 5 Guyanese EBU 3.5 guide catheter and a [employer] FFR pressure wire. A 1.5 x 12 millimeter Steward Mini Trek balloon dilatation catheter and Bartlett guidewire were used to help advance the guide catheter through the radial artery past a site of radial artery spasm. Protocol and findings: The 6 Guyanese glide sheath was 1st inserted in the right radial artery. The diagnostic 5 Guyanese brachial 3.5 catheter easily advanced through the radial and brachial arteries. Coronary angiography was performed. Ostial LAD and left circumflex stenoses were noted. In some views these appeared to be napkin ring type lesions. Was felt best to perform physiologic assessment of these lesions. The diagnostic catheter was then exchanged for the guide catheter. The guide catheter would not advance through the radial artery despite administration of multiple doses of intra-arterial nicardipine. There was evidence of continued radial artery spasm. The 0.035 guidewire was then exchanged for a Bartlett coronary guidewire. Over this wire the balloon dilatation catheter was advanced. The distal half of the balloon was inflated at the tip of the guide catheter to a pressure of 4 atmospheres. The guide catheter and balloon dilatation catheter system were then easily advanced across the coronary guidewire to the subclavian artery. The coronary wire was then exchanged for the 0.035 guidewire. The guide catheter was then easily advanced to the coronary cusp. The FFR wire was balanced and normalized. It was then advanced into the left circumflex. IFR of the ostial left circumflex lesion was was 0.94. Intravenous adenosine was then administered at a dose of 140 micrograms/kilogram per minute for 2 minutes. The FFR of the left circumflex was 0.95. The pressure wire was then repositioned in the LAD. IFR of the ostial LAD was 0.97. Intravenous adenosine was then administered a dose of 140 micrograms/kilogram for 2 minutes. FFR of the ostial LAD stenosis was 0.91. Follow-up angiography of the left coronary artery was then performed. The 7 Guyanese sheath was then inserted in the right femoral vein. Right heart catheterization was then performed. Intravenous heparin had been administered before coronary angiography was performed. A therapeutic activated clotting time was documented prior to performance of FFR. Hemostasis: Terumo TR band at right radial artery site. Manual pressure right femoral vein site. Complications: none. Results: Fluoroscopy revealed extensive aortic valvular calcifications. Decreased excursion of the aortic valve leaflets. Mitral annular calcifications and mild coronary artery calcifications are also present. The coronary circulation was right dominant. The left main coronary artery was a short large caliber vessel without obstructive disease. There are almost separate ostia of the LAD and left circumflex coronary arteries. The ostium of the LAD had a 30 percent stenosis. In some views (CASH caudal) there appeared to be a napkin ring lesion in the ostium of the LAD. The remainder of the LAD had no significant obstructive disease. The LAD gave rise to a long small caliber diagonal artery which had no obstructive disease. The distal LAD terminated at the apex as a very small caliber vessel. The ostium of the left circumflex had a 30 percent stenosis. In some views there also appeared to be a napkin ring type lesion in the ostium of the left circumflex. Proximal circumflex gave rise to a small caliber 1st marginal artery which had an ostial 30 percent stenosis. The mid left circumflex had diffuse mild atherosclerotic disease with 10-20 percent luminal diameter narrowing. The mid circumflex gave rise to a long small to medium caliber 2nd marginal artery without obstructive disease. The circumflex then gave rise to a small caliber 3rd marginal artery which was also normal. The ostium of the right coronary artery was a very large caliber. The mid RCA had diffuse mild atherosclerotic disease with 10-20 percent luminal diameter narrowing. The RCA gave rise to a long small caliber acute marginal artery with inferior distribution. No obstructive disease in this vessel. No significant right posterior descending artery was visualized. There was a very small caliber and short PDA type branch. The distal RCA gave rise to 2 long small caliber posterolateral branches which had no obstructive disease. Ostial left circumflex stenosis with IFR 0.94. FFR 0.95. Ostial LAD stenosis with IFR 0.97. FFR 0.91. Follow-up angiography after performance of FFR revealed no evidence of dissection, thrombus, perforation, or distal embolic event. Pressures ( mm Hg ): Resting aortic 142/63/99; RA 16/16/13; RV 50/13; pulmonary artery 53/23/38; pulmonary wedge 33/37/26. The aortic oxygen saturation was 98 percent. Pulmonary artery oxygen saturation 63 percent. Right atrial oxygen saturation 69 percent. The cardiac output determined by the thermodilution method was 3.8 liters/minute. Cardiac index 2.5 liters per minute per meter squared. Pulmonary vascular resistance 3.1 Mccormick units. Systemic vascular resistance 22.4 Mccormick units. Plan: It is planned for the patient to be transferred to [facility] in [facility] [place] for consideration of undergoing a TAVR procedure. Hemodynamics Rest Ao: 142/63/99 mm Hg Final Ao: 121/46/79 mm Hg LV: NA RA: 16/16/13 mm Hg RV: 50/13 mm Hg PA: 53/23/38 mm Hg PW: 33/37/26 mm Hg Recommendations Medical therapy and/or Counseling, valve replacement Specimens None Radiation Exposure (mGy) 1445 Fluids (cc crystalloids) 90 Drains none Anesthesia IV versed,fentanyl. Lidocaine 1% local Procedural Complication(s) None Disposition PCU ACC Data Cardiac Status Clinical evaluation leading to the procedure CAD Presntation: No Sxs, no angina Anginal Classification: No symptoms Heart Failure: NYHA Class: CCS III Cardiogenic Shock w/in 24Hrs: No Cardiac Arrest w/in 24Hrs: No Imaging studies past 6 months: Yes Stress studies past 6 months: No Standard Exercise Stress Test: No Stress Echocardiogram: No Stress Testing w/SPECT MPI: No Cardiac CTA: No Coronary Anatomy Dominant: Right Left Main (% Stenosis): Normal LAD (% Stenosis): Ostial (30), Mid (0-10) D1 (% Stenosis): Normal Circumflex (% Stenosis): Ostial (30), Mid (10-20) OM1 (% Stenosis): Ostial (30) OM2 (% Stenosis): Normal OM3 (% Stenosis): Normal RCA (% Stenosis): Proximal (0-10), Mid (10-20), Distal (0-10) R PDA (% Stenosis): Normal R PL1 (% Stenosis): Normal R PL2 (% Stenosis): Normal AM (% Stenosis): Normal Left Ventricular Angiography EF (%): NA Diagnostic Physician's Name: Ramu Mack M.D. Status: Elective Closure Device Percutaneous Entry Location: Radial Closure Device: Radial Band Recommendations: valve replacement Lesion Segment Name: Ostial LAD Stenosis Prior to Rx (%): 30% In some views could not exclude a napkin ring lesion Chronic Total Occlusion: No IVUS: No FFR: Yes (0.91) Ratio: greater than 0.75% Pre-Procedure ELAINA Flow: 3 Previously Treated Lesion: No Lesion Complexity: Non-High/Non-C Lesion Length (mm): 2 mm Thrombus Present: No Bifurcation Lesion: No Guidewire Across Lesion: Yes Guidewire: Stenosis Post-Procedure (%): 30 Post-Procedure ELAINA Flow: 3 Device(s) Deployed: No Lesion #2 Segment Name: ostial left circumflex Stenosis Prior to Rx (%): 30%. In some views could not exclude a napkin ring lesion. IVUS: No FFR: Yes (FFR 0.95) Ratio: greater than 0.75% Pre-Procedure ELAINA Flow: 3 Lesion Complexity: Non-High/Non-C Lesion Length (mm): 2 mm Thrombus Present: No Bifurcation Lesion: No Guidewire Across Lesion: Yes Guidewire: Stenosis Post-Procedure (%): 30 Post-Procedure ELAINA Flow: 3 Device(s) Deployed: No Intraprocedure Events Significant Dissection: No Perforation: No
--- NOTE | 2016-09-29 13:33 | Psychiatric Progress Notes ---
Psychiatric Progress Note Date of Service September 29, 2016. Notes ID: Patient reviewed with liaison nurse. Initial consult completed by CARLOS Parks complted on 09/28. Patient was not particularly interested in assessment at that time. 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 Initially consulted as there was some concern about paranoia. She remains fixated on concerns that occurred during a previous hospitalization when she was given a dirty towel. She does recognize that she needs something at night for her "nerves" as gets "fed up" with the constant numbers of doctors and staff checking on her all day. She has been receiving 0.5 mg Ativan IV prn hs, put did fall 2 nights ago. She is adamant that it is was not related to medication and is opposed to a trial of Buspar. ROS: SOB, denies thrush, no SI/HI/omer. MSE: alert, oriented, perseverative thought processes, irritable but yet pleasant affect most of time Imp: adjustment disorder with anxious mood, underlying longstanding OCPD or traits that are being magnified by phase of life (integrity vs despair) Plan: decrease hs Ativan to 0.25 mg to minimize fall risk but provide coverage, give patient choices--like offered PO vs IV and if wanted prn or scheduled Ativan; if any issues with tolerability of IV Ativan would suggest Xanax 0.125 mg po patient has capacity and is oriented and nurse was notified that she would like a list of her current medications
[2016-09-29 15:30] VITALS: BP 163/77; PULSE 87; TEMP 36.4; O2SAT 99
[2016-09-29] MEDS: ARTIFICIAL TEARS OP SOLN OPB SCH ×2 (21:00)
[2016-09-29] MEDS: TRAVOPROST Z 0.004% OPH SOLN 2.5 ML BTL OPB SCH (21:00)
[2016-09-29] MEDS ORDERED: LORAZEPAM 2 MG/ML 1 ML VIAL IV SCH (21:00)
[2016-09-29] MEDS: LORAZEPAM INJ 0.25 MG in SYRINGE 0.125 ML IV SCH (21:27)
[2016-09-29] MEDS: RIVAROXABAN TAB 15 MG TAB PO SCH (22:00)
[2016-09-29] MEDS: HYDROCHLOROTHIAZIDE 25 MG TAB PO SCH (22:00)
[2016-09-30 00:08] VITALS: BP 135/74; PULSE 98; TEMP 35.9; O2SAT 98
[2016-09-30] MEDS ORDERED: BISACODYL 10 MG SUPP PR PRN ×2 (01:00→22:00)
[2016-09-30 04:05] VITALS: BP 141/66; PULSE 97; TEMP 36.6; O2SAT 93
[2016-09-30] MEDS: DILTIAZEM HCL 60 MG TAB PO SCH ×4 (05:42→23:35)
[2016-09-30] MEDS: LEVOTHYROXINE 75 MCG TAB PO SCH (05:42)
[2016-09-30 08:11] VITALS: BP 120/68; PULSE 68; TEMP 35.7; O2SAT 96
[2016-09-30] MEDS: DILTIAZEM SR 60 MG CAP PO SCH ×2 (08:17→21:24)
[2016-09-30] MEDS: BUDESONIDE/FORMOTEROL FUMARATE 80/4.5 60 PUFFS/INHALER INH SCH ×2 (08:18→21:25)
[2016-09-30] MEDS: METHYLPREDNISOLONE IV 40 MG in SYRINGE 0 ML IV SCH (08:18)
[2016-09-30] MEDS: TIOTROPIUM BROMIDE 5 PUFF/90 MCG INH INH SCH (08:19)
[2016-09-30] MEDS: FUROSEMIDE 20 MG TAB PO SCH (08:19)
[2016-09-30] MEDS: DOCUSATE SODIUM/SENNA 50/8.6MG TAB PO SCH ×2 (08:19→21:22)
[2016-09-30] MEDS: MAGNESIUM CHLORIDE 64MG DELAYED REL TAB PO SCH (08:19)
[2016-09-30] MEDS: MULTIVITAMIN TAB PO SCH (08:19)
[2016-09-30] MEDS: PANTOprazole SOD 40 MG TAB PO SCH (08:20)
--- NOTE | 2016-09-30 09:40 | Psychiatric Progress Notes ---
Psychiatric Progress Note Date of Service September 30, 2016. Notes chart review. Up at midnight and 4 am. No complaints or falls listed. As clarification would only continue Ativan in a supervised setting due to fall risk.
--- NOTE | 2016-09-30 11:36 | PULMONARY PROGRESS NOTE ---
DATE: 09/30/2016 DATE: 09/30/2016. TIME: 10:55 a.m. SUBJECTIVE: The patient feels really well today. She is not having any breathing issues. She was very pleased with the way that her catheterization went yesterday. Her mood and attitude seems much better than previous. OBJECTIVE: GENERAL: The patient appears comfortable. She is afebrile. HEART: Heart rate was 68 per minute. The rhythm was irregular. Blood pressure 120/68. LUNGS: Lung luis were clear bilaterally. EXTREMITIES: Showed no edema today. There was no cyanosis or clubbing. IMPRESSIONS: 1. Chronic obstructive pulmonary disease -- severe. 2. Critical aortic stenosis. 3. Small left pleural effusion. COMMENTS AND RECOMMENDATIONS: The patient is doing reasonably well. I am going to change her steroids to a lower dose. She requested the not be changed to oral. She feels she is tolerating the methylprednisolone better. We will cut her back to 20 mg IV q. 12 hours. I agree with her other medications.
[2016-09-30 12:29] VITALS: BP 101/63; PULSE 87; TEMP 36.1; O2SAT 94
[2016-09-30] MEDS ORDERED: FENTANYL CITRATE INJ 50 MCG/1 ML 2 ML VIAL IV SCH (12:45)
[2016-09-30] MEDS ORDERED: MIDAZOLAM HCL 5 MG/ML 1 ML VIAL IV SCH (12:45)
[2016-09-30] MEDS: SODIUM CHLORIDE 0.9% 1000ML 1,000 ML IV SCH (12:52)
--- NOTE | 2016-09-30 13:49 | DIAGNOSTIC IMAGING REPORT ---
RIGHT UPPER EXTREMITY ARTERIAL DOPPLER STUDY CLINICAL HISTORY: Pseudoaneurysm right radial artery Right. Status post radial artery catheterization COMPARISON STUDY: None. FINDINGS: At the level of the wrist there is a partially thrombosed 3.1 x 2.1 x 1.2 cm pseudoaneurysm connecting to the radial artery. The visualized right artery appears patent. 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 Electronically signed by: Barrera Gutiérrez M.D. 09/30/2016 1:47 PM Dictated Date/Time: 09/30/2016 1:45 PM
[2016-09-30] MEDS ORDERED: FENTANYL CITRATE INJ 50 MCG/1 ML 2 ML VIAL IV STA (14:00)
--- NOTE | 2016-09-30 14:10 | CARDIOLOGY PROGRESS NOTE ---
DATE: 09/30/2016 SUBJECTIVE: The patient was seen by me early this afternoon in the telemetry unit room. She complains of pain at her right radial catheterization site. She states that after the TR band was removed yesterday, she developed bleeding at the site. She denies any pain in her right hand or fingers. She denies any chest pain. No symptoms suggestive of thromboembolic event, CVA, or TIA. Currently, no dyspnea. She is on 2 liters per minute nasal cannula oxygen. No abdominal pain or nausea. No palpitations. No lightheadedness or syncope. CURRENT MEDICATIONS: Methylprednisolone 20 mg IV q. 12 hours, lorazepam 0.25 mg IV at bedtime, HCTZ 12.5 mg at bedtime, pantoprazole 40 mg daily, vitamin D 50,000 units weekly on Wednesdays, diltiazem 120 mg p.o. b.i.d. and 60 mg q. 6 hours, furosemide 20 mg daily, magnesium chloride 64 mg daily, multivitamin 1 daily, Spiriva HandiHaler 1 puff daily, levothyroxine 75 mcg daily, Symbicort 2 puffs b.i.d., Xarelto 50 mg q.p.m., Senokot 1 tab b.i.d., travoprost 1 drop at bedtime, and several p.r.n. medications. ALLERGIES AND ADVERSE DRUG REACTIONS: CLONIDINE, IODINATED CONTRAST AGENTS, LATEX, PENICILLINS, AND SULFA ANTIBIOTICS. Intake and output yesterday reported to be 300/2200. OBJECTIVE: CURRENT VITAL SIGNS: With pulse rate of 95. Blood pressure 141/66. Axillary temperature earlier today 35.7. Pulse oximetry 96% on 2 liters per minute nasal cannula oxygen. NECK: No jugular venous distention. LUNGS: Normal respiratory effort. Clear. No rales or wheezes. HEART: Irregularly irregular. Absent aortic valvular closing sound. 2/6 systolic murmur in the upper sternal borders. No diastolic murmur or rub. ABDOMEN: Soft. Nontender. No palpable masses or organomegaly. EXTREMITIES: Ecchymoses in the right radial catheterization site. Hematoma in the right radial catheterization site. Pulsatile. It is tender to palpation. No evidence of arterial insufficiency, right hand. Trace pretibial edema bilaterally. NEUROLOGIC: Alert and oriented x3. Motor grossly intact. PSYCHIATRIC: Affect is normal. LABORATORY DATA: No new labs today. ASSESSMENT: 1. Chronic atrial fibrillation. Moderate ventricular response. 2. Hyperdynamic left ventricular systolic function. 3. Severe calcific aortic stenosis. 4. Cardiac catheterization with coronary angiography yesterday revealed ostial LAD and circumflex stenosis. FFR of both these lesions showed them to be not physiologically significant. 5. Elevated right heart and pulmonary wedge pressures on catheterization yesterday. 6. Possible pseudoaneurysm, right radial catheterization site. PLAN: 1. Arterial ultrasound right radial artery this afternoon to assess for the presence of a pseudoaneurysm. If pseudoaneurysm is present, we will need to reapply prolonged pressure to this site to close the arteriotomy site. 2. We will give analgesics and sedation prior to performing any further pressure on the right radial site. We will administer prior to performing ultrasound. The patient is markedly tender at this site at the time of my exam. 3. The patient is currently receiving 2 different formulations and dosing schedules of diltiazem. She is receiving 120 mg of diltiazem slow release twice a day. She is receiving 60 mg of diltiazem immediate release q. 6 hours. Her total diltiazem dose with the combination of these 2 medications per day is 480 mg. As her blood pressure is elevated and the ventricular response is mildly elevated, could change her diltiazem to 300 mg slow release b.i.d. If the total dose did not change, the dose could be changed to 240 mg slow release b.i.d.
[2016-09-30] MEDS ORDERED: FENTANYL CITRATE INJ 50 MCG/1 ML 2 ML VIAL IV ONE (15:00)
[2016-09-30 17:23] VITALS: BP 125/71; PULSE 87; TEMP 36.1; O2SAT 96
--- NOTE | 2016-09-30 18:53 | DIAGNOSTIC IMAGING REPORT ---
ULTRASOUND RIGHT UPPER EXTREMITY ARTERIAL CLINICAL HISTORY: Follow-up radial artery pseudoaneurysm status post compression. COMPARISON STUDY: Right upper extremity arterial ultrasound dated 09/30/2016. FINDINGS: Real-time, grayscale, and color Doppler sonography of the right radial artery is performed at the site of the previously identified pseudoaneurysm. The right radial artery is patent with velocities measuring up to 46 cm/s. There is a complex fluid collection identified adjacent the radial artery which measures 3.0 x 0.8 x 2.2 cm. This likely represents a hematoma, and this is located the site of the previously identified sutures in. No internal flow is identified on Doppler imaging. IMPRESSION: 1. There is a hematoma identified in the right wrist adjacent the radial artery at the site of the previously identified pseudoaneurysm. 2. No flow is identified within the hematoma at this time to indicate persistent pseudoaneurysm. 3. The right radial artery is patent. Electronically signed by: Dejon Rodriguez M.D. 09/30/2016 6:52 PM Dictated Date/Time: 09/30/2016 6:50 PM
--- NOTE | 2016-09-30 18:55 | PROGRESS NOTE ---
DATE: 09/30/2016 SUBJECTIVE: The patient had been seen by me earlier today. On exam, it was noted that she had a pulsatile hematoma at right radial artery catheterization site. No active bleeding. Ecchymosis in the region. No evidence of arterial insufficiency in the right hand. The site was tender to palpation. It was felt by me that the pulsatile mass represented a pseudoaneurysm. A right upper extremity arterial Doppler study was performed and confirmed presence of a partially thrombosed 3.1 x 2.1 x 1.2 cm pseudoaneurysm connecting to the radial artery. The right radial artery itself was patent. Following this study, a Terumo TR band was placed on the right wrist for 2 hours. The original inflation pressure was 15 atmospheres. The pressure was reduced after 45 minutes. It was subsequently taken off. Exam after the Terumo TR band was removed revealed no active bleeding. The hematoma was no longer pulsatile. No evidence of arterial insufficiency in the right hand. A repeat ultrasound was thus performed. I was at the bedside at the time that this was performed. It appears that the pseudoaneurysm has closed. On my review of the images, there was no connection between the right radial artery and the hematoma. The official radiologist's interpretation is pending. After the Terumo TR band had been placed on her wrist and then removed, patient states that her right radial artery site was much less painful than this morning. She complained of only mild discomfort in her right wrist as compared to this morning. Will place a pressure dressing at this site. Will reevaluate in a.m. Await the official radiologist's interpretation of the arterial Doppler study just performed. Sixty minutes of critical care time was spent by me in management of this patient in regards to the pseudoaneurysm. I was present at the bedside when the Terumo TR band was applied. I checked on patient frequently while it was on. TR band was removed by me. I was present at the time of repeat Doppler study. JOSELINE
[2016-09-30 20:04] VITALS: BP 136/74; PULSE 88; TEMP 36.4; O2SAT 94
[2016-09-30] MEDS: METHYLPREDNISOLONE IV 20 MG in SYRINGE 0 ML IV SCH (21:20)
[2016-09-30] MEDS: LORAZEPAM INJ 0.25 MG in SYRINGE 0.125 ML IV SCH (21:20)
[2016-09-30] MEDS: HYDROCHLOROTHIAZIDE 25 MG TAB PO SCH (21:23)
[2016-09-30] MEDS: RIVAROXABAN TAB 15 MG TAB PO SCH (21:23)
[2016-09-30] MEDS: TRAVOPROST Z 0.004% OPH SOLN 2.5 ML BTL OPB SCH ×2 (21:24)
[2016-09-30] MEDS: ARTIFICIAL TEARS OP SOLN OPB SCH ×4 (21:24)
--- NOTE | 2016-09-30 21:33 | Family Medicine Progress Note ---
Progress Note Date of Service September 30, 2016. Subjective Pt evaluation today including: conversation w/ patient, physical exam, chart review, lab review, review of studies Pain: No pain reported this morning Voiding: no voiding problems Patient states that she is feeling better and was concerned about her transport to [place]. She also complains of right arm pain after her cardiac catheterization yesterday. Constitutional: No chills, No fever, No sweats Respiratory: No cough, No shortness of breath, No sputum, No wheezing Cardiovascular: No chest pain Abdomen: No nausea, No pain, No vomiting Female : No dysuria Skin: + problem reported (bruising over right wrist) Medications Current Inpatient Medications Medications (Trade) Dose Ordered Sig/Yared Route Start Time Stop Time Status Last Admin Dose Admin Acetaminophen (Tylenol Tab) 650 mg Q4H PRN PO 09/23/16 18:15 10/23/16 18:14 09/23/16 23:47 650 MG Al Hydrox/Mg Hydrox/Simethicone (Maalox Max Susp) 15 ml Q4H PRN PO 09/23/16 18:15 10/23/16 18:14 Magnesium Hydroxide (Milk Of Magnesia Susp) 30 ml Q12H PRN PO 09/23/16 18:15 10/23/16 18:14 Ondansetron HCl (Zofran Inj) 4 mg Q6H PRN IV 09/23/16 18:15 10/23/16 18:14 Nitroglycerin (Nitrostat Tab) 0.4 mg UD PRN SL 09/23/16 18:15 10/23/16 18:14 Polyethylene (Miralax Powder Packet) 17 gm DAILY PRN PO 09/23/16 18:15 10/23/16 18:14 09/25/16 17:45 17 GM Budesonide/ Formoterol Fumarate (Symbicort 80/ 4.5 Inh) 2 puffs BID INH 09/23/16 21:00 10/23/16 20:59 09/30/16 08:18 2 PUFFS Ergocalciferol (Vitamin D Cap) 50,000 interunit We@0900 PO 09/27/16 09:00 10/27/16 08:59 09/27/16 07:38 50,000 INTERUNIT Ipratropium [place] (Atrovent 0.02% 0.5MG/2.5ML Neb) 0.5 mg Q6R PRN INH 09/23/16 18:15 10/23/16 18:14 09/24/16 14:19 0.5 MG Levalbuterol (Xopenex 0.63 Mg/ 3 Ml Neb) 0.63 mg Q6R PRN INH 09/23/16 18:15 10/23/16 18:14 09/24/16 14:19 0.63 MG Levothyroxine Sodium (Synthroid Tab) 75 mcg DAILYBB PO 09/24/16 06:00 10/24/16 06:59 09/30/16 05:42 75 MCG Magnesium Chloride (Slow-Mag Tab) 64 mg QAM PO 09/24/16 09:00 10/24/16 08:59 09/30/16 08:19 64 MG Multivitamins (Multivitamin Tab) 1 tab QAM PO 09/24/16 09:00 10/24/16 08:59 09/30/16 08:19 1 TAB Potassium Chloride (Klor-Con M10) 10 meq DAILY PRN PO 09/23/16 18:15 10/23/16 18:14 Rivaroxaban (Xarelto Tab) 15 mg QPM PO 09/23/16 21:00 10/23/16 20:59 Future hold 09/29/16 22:00 15 MG Senna/Docusate Sodium (Senokot S Tab) 1 tab BID PO 09/23/16 21:00 10/23/16 20:59 09/30/16 08:19 1 TAB Travoprost (Travatan Z) 1 drops HS OPB 09/23/16 21:00 10/23/16 20:59 09/30/16 00:00 1 DROPS Artificial Tears (Artificial Tears) 1 drops HS OPB 09/23/16 21:00 10/23/16 20:59 09/30/16 00:00 1 DROPS Tiotropium [place] (Spiriva Handihaler Inhaler) 1 puff QAM INH 09/24/16 09:00 10/24/16 08:59 09/30/16 08:19 1 PUFF Diltiazem HCl (Cardizem Tab) 60 mg Q6H PO 09/25/16 11:30 09/25/17 19:00 09/30/16 05:42 60 MG Furosemide (Lasix Tab) 20 mg DAILY PO 09/26/16 09:00 10/26/16 08:59 09/30/16 08:19 20 MG Diltiazem HCl (Cardizem Sr) 120 mg BID PO 09/26/16 21:00 10/26/16 20:59 09/30/16 08:17 120 MG Pantoprazole Sodium 40 mg 40 mg QAM PO 09/28/16 09:00 10/28/16 08:59 09/30/16 08:20 40 MG Lorazepam 0.25 mg/ Syringe 0.25 ml @ 1 mls/min HS IV 09/29/16 21:00 10/29/16 20:59 09/29/16 21:27 1 MLS/MIN Sodium Chloride 1,000 ml @ 15 mls/hr Q24H IV 09/29/16 12:52 10/29/16 12:51 Sodium Chloride (Nss 1000ml) 250 ml @ 999 mls/hr Q16M PRN IV 09/29/16 12:52 10/29/16 12:51 Atropine Sulfate (Atropine Sulfate 0.1MG/Ml Inj) 0.6 mg PRN PRN IV 09/29/16 13:00 10/29/16 12:59 Hydrochlorothiazide 12.5 mg 12.5 mg HS PO 09/29/16 21:00 10/29/16 20:59 09/29/16 22:00 12.5 MG Methylprednisolone Sodium Succinate/ Syringe (Solu-Medrol IV/ Syringe) 0.32 ml @ 1.5 mls/min Q12 IV 09/30/16 21:00 10/30/16 20:59 Objective Vital Signs Date Time Temp Pulse Resp B/P Pulse Ox O2 Delivery O2 Flow Rate FiO2 09/30/16 08:11 35.7 68 20 120/68 96 Nasal Cannula 2.0 09/30/16 04:05 36.6 97 17 141/66 93 Nasal Cannula 2.0 09/30/16 04:00 Nasal Cannula 3.0 09/30/16 00:08 35.9 98 19 135/74 98 Nasal Cannula 3.0 09/30/16 00:00 Nasal Cannula 3.0 09/29/16 20:00 Nasal Cannula 3.0 09/29/16 16:00 Nasal Cannula 3.0 09/29/16 15:30 36.4 87 20 163/77 99 Nasal Cannula 4.0 09/29/16 13:00 Nasal Cannula 3.0 09/29/16 12:45 65 16 138/78 95 Room Air 09/29/16 12:35 65 16 143/78 95 Room Air Physical Exam General Appearance: WD/WN, no apparent distress Neck: supple, no carotid bruits, trachea midline Respiratory/Chest: chest non-tender, no respiratory distress, no accessory muscle use, + wheezing (scattered) Cardiovascular: no edema, no gallop, + systolic murmur, + irregularly irregular Abdomen: normal bowel sounds, non tender, soft Neurologic/Psychiatric: no motor/sensory deficits, alert, oriented x 3 Skin: + pertinent finding (bruising over right wrist) Laboratory Results Results Past 24 Hours Test 09/29/16 12:10 09/29/16 12:29 09/29/16 12:31 Range/Units Kaolin Activated Coagulation Time 291 94-140 SECONDS Bedside Blood Gas pH (LAB) 7.41 7.41 7.35-7.45 Bedside Blood Gas pCO2 (LAB) 42 43 35-46 mmHg Bedside Blood Gas pO2 (LAB) 36 33 80-95 mmHg Bedside Blood Gas HCO3 (LAB) 26 27 19-24 meq/L Bedside Blood Gas Total CO2 28 28 24-31 mEq/l Bedside Blood Gas Base Excess (LAB) 2.0 2.0 -9-1.8 meq/L Bedside Blood Gas O2 Saturation 69.0 63.0 90-95 % Assessment and Plan 86 year old female with a past medical history of COPD, severe aortic stenosis, atrial fibrillation, CKD I-II, and hypothyroidism admitted with worsening shortness of breath Acute Hypoxic Respiratory Failure - Symptoms currently stable with treatment regimen Secondary to combination of atrial fibrillation, severe aortic stenosis, and some component of diastolic heart failure. CXR on admission showed early interstitial edema. Previous ECHO 08/02/15 showed LVEF > 70%, severe aortic stenosis with calculated BINA 0.5cm2, mild aortic regurgitation, moderate to severe mitral annular calcification with mild mitral regurgitation, grade I diastolic dysfunction. Recent ECHO shows new pulmonary HTN. Cardiology and pulmonology consulted - recs appreciated. Cardiac catheterization performed on 09/29 without complication - 93 on 2L NC this am - BiPAP PRN - Lasix 20mg and HCTz 12.5mg for fluid overload - Referral to [facility] in [place] for TAVR - Outpatient appt scheduled - Transport to [facility] delayed until Sunday or Sunday. Will continue to try to establish transport as soon as possible COPD - Shortness of breath improving - Symbicort 2 puff BID - Duoneb - Xopenex and Atrovent PRN - Spiriva 1 puff qAM - Methylprednisone 40mg q12h - Pantoprazole 40mg daily for GI prophylaxis Right Wrist Pseudoaneurysm - Resolved with band treatment - Discovered by Dr. Mack at bedside after Cardiac Catheterization at site on the right wrist - Partially thrombosed 3.1 x 2.1 x 1.2 cm pseudoaneurysm confirmed with US study - Terumo TR band was placed on the right wrist for 2 hours. The original inflation pressure was 15 atmospheres. The pressure was reduced after 45 minutes. - Aneurysm resolved after treatment Diarrhea - patient not on antibiotics currently, but did complete a course recently. Diarrhea improved. Stool sample not collected for c.diff toxin Atrial Fibrillation with RVR - Currently rate controlled. Received Diltiazem drip on admission with bolus, then switched to PO. TSH low with upper normal FT4 , history of taking excess Synthroid for weight loss - PO Diltiazem SR 120mg BID - Xarelto 15mg qPM Leukocytosis - Resolved. Possibly secondary to steroid use after previous admission. WBC on admission 15.95, now WNL. Afebrile, Blood Cultures negative, CXR shows no infiltrates Hematuria - UA positive for RBC. 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 Extensive work up has already been done. Hypertension - BP adequately controlled - Lasix 20mg - HCTz 12.5mg Hypothyroidism - Low TSH on admission. Patient possibly taking extra doses of Synthroid for weight loss - Synthroid 75mcg - Monitor TSH as outpatient DVT Prophylaxis - Anticoagulated with Xarelto Code Status - DNR Reviewed: Pt Seen/Exam by Me History Resident Physician Supervision Note: I interviewed and examined the patient. Discussed with Dr. Hernandez and agree with findings and plan as documented in the note. Any exceptions or clarifications are listed here: Upset about transport not being able to be arranged now for tomorrow. Had pseudoaneurysm rt wrist today now resolved after reapplication of TR band Tele A-fib with rates in 70s-90s, vitals reviewed No acute distress irreg irreg with normal rate, 3 out of 6 harsh systolic ejection murmur at the right upper sternal border decreased BS throughout but no wheezes crackles or rhonchi Ext trace+ pitting edema of the ankles and distal legs, no calf tenderness, sarcopenia SKin no rashes 86 yo female with severe , acute on chronic hypoxemic resp failure, severe COPD, acute on chronic diastolic CHF. -Continue lasix and HCTZ -We have arranged an outpatient evaluation with at [facility] which unfortunately is not until October 23-patient is absolutely refusing SNF in the meantime-we will continue to work on either direct transfer approval versus convincing her to go to SNF--> they will accept her as a direct transfer if her family is willing to pay for the ambulance ride-we'll hopefully get her there on Sunday now -Cardiac cath for preoperative for TAVR completed here and no significant obstruction, Right sided cath done as well -continue supplemental O2 2LNC weaned down and back to baseline -APpreciate Cardiology and Pulm consults -continue steroids IV and taper down -continue supportive care for severe anxiety, but with some paranoia as well--> Psychiatry consult appreciated the patient is unwilling to take any psychiatric medications Documented By: Greta Prasad
[2016-09-30] MEDS ORDERED: NURSING VERBAL MED ORDER ONE (21:45)
[2016-09-30] MEDS ORDERED: BISACODYL 10 MG SUPP PR ONE (22:00)
[2016-10-01] VITALS (7 sets, daily range): BP systolic 100–146; BP diastolic 53–83; PULSE 77–102; TEMP 35.8–36.5; O2SAT 92–97
[2016-10-01 06:05] LABS: HEMATOCRIT 33.5 % (37-47); MEAN CELL VOLUME 90.1 fL (80-100); MEAN CORPUSCULAR HEMOGLOBIN 30.9 pg (25-34); MEAN CORPUSCULAR HGB CONC 34.3 g/dl (32-36); MEAN PLATELET VOLUME 9.7 fL (7.4-10.4); PLATELET COUNT 361 K/uL (130-400); RED BLOOD COUNT 3.72 M/uL (4.2-5.4); WHITE BLOOD COUNT 8.82 K/uL (4.8-10.8)
[2016-10-01] MEDS: LEVOTHYROXINE 75 MCG TAB PO SCH (06:13)
[2016-10-01] MEDS: DILTIAZEM HCL 60 MG TAB PO SCH ×4 (06:13→23:06)
[2016-10-01 06:37] LABS: BUN/CREATININE RATIO 27.2 (10-20); CALCIUM 7.5 mg/dl (8.5-10.1); CREATININE 0.81 mg/dl (0.60-1.20); POTASSIUM 3.9 mmol/L (3.5-5.1)
[2016-10-01] MEDS: DOCUSATE SODIUM/SENNA 50/8.6MG TAB PO SCH ×2 (09:20→21:24)
[2016-10-01] MEDS: MAGNESIUM CHLORIDE 64MG DELAYED REL TAB PO SCH (09:20)
[2016-10-01] MEDS: FUROSEMIDE 20 MG TAB PO SCH (09:20)
[2016-10-01] MEDS: BUDESONIDE/FORMOTEROL FUMARATE 80/4.5 60 PUFFS/INHALER INH SCH ×2 (09:20→21:22)
[2016-10-01] MEDS: DILTIAZEM SR 60 MG CAP PO SCH ×2 (09:20→21:25)
[2016-10-01] MEDS: TIOTROPIUM BROMIDE 5 PUFF/90 MCG INH INH SCH (09:21)
[2016-10-01] MEDS: MULTIVITAMIN TAB PO SCH (09:21)
[2016-10-01] MEDS: PANTOprazole SOD 40 MG TAB PO SCH (09:21)
[2016-10-01] MEDS: METHYLPREDNISOLONE IV 20 MG in SYRINGE 0 ML IV SCH (09:21)
--- NOTE | 2016-10-01 11:40 | PROGRESS NOTE ---
DATE: 10/01/2016 HISTORY OF PRESENT ILLNESS: The patient was seen by me this morning in her telemetry unit room. From a cardiac standpoint, she is feeling well. No dyspnea at rest. No orthopnea or PND overnight. Mild transient lightheadedness when arising from bed. This last only seconds. No syncope. No fevers or chills. No abdominal pain. No GI complaints. No chest pain or other anginal type pains. No palpitations. No bleeding complaints. Mild discomfort in her right wrist and forearm. It is markedly decreased compared to yesterday. No complaints of leg pain. She does complain of peripheral edema. CURRENT MEDICATIONS: Methylprednisolone 20 mg IV b.i.d., hydrochlorothiazide 12.5 mg at bedtime, vitamin D 50,000 units daily on Wednesdays, pantoprazole 40 mg daily a.m., diltiazem SR 120 mg b.i.d., diltiazem IR 60 mg q. 6 hours, furosemide 20 mg daily, magnesium chloride 64 mg p.o. daily, multivitamin 1 daily, Spiriva HandiHaler 1 puff daily, levothyroxine 75 mcg daily, Symbicort 2 puffs b.i.d., Xarelto 50 mg q.p.m., Senokot 1 tab b.i.d., travoprost 1 drop at bedtime, artificial tears 1 drop at bedtime, and several p.r.n. medications. ALLERGIES AND ADVERSE DRUG REACTIONS: CLONIDINE, IODINATED CONTRAST AGENTS, LATEX, PENICILLINS, SULFA ANTIBIOTICS. Monitor reveals atrial fibrillation. Controlled ventricular response. PHYSICAL EXAMINATION: VITAL SIGNS: This morning with axillary temperature is 36.0, pulse 91, blood pressure 110/66, pulse oximetry on 2 liters per minute nasal cannula oxygen 94%. NECK: No jugular venous distention noted in the upright position. LUNGS: Normal respiratory effort. Clear. No rales or wheezes. HEART: Irregularly irregular. Absent aortic valvular closing sound. A 2/6 systolic murmur second intercostal space in the entire left sternal border. No diastolic murmur, S3, or rub heard. ABDOMEN: Soft. Nontender. No palpable masses or organomegaly. EXTREMITIES: 1+ pretibial edema bilaterally. No calf tenderness. Right radial cath site without any bleeding. Ecchymoses right forearm. Slightly tender to palpation. No evidence of arterial insufficiency in the right hand. LABORATORY DATA: Today with hemoglobin 11.5, hematocrit 33.5, platelet count 361, WBC 8.82. Metabolic profile with sodium 137, potassium 3.9, chloride 96, carbon dioxide 36, BUN 22, creatinine 0.81, random glucose 149. ASSESSMENT: 1. Severe calcific aortic stenosis. 2. Status post cardiac catheterization on 09/29/2016. Coronary angiography performed via right radial arterial access. Right heart catheterization performed via right femoral venous access. The catheterization revealed in some views a napkin ring type lesion in the ostium of both the left anterior descending and left circumflex. In other views, there appeared to be only eccentric 30% stenoses at these sites. Fractional flow reserve performed of both vessels showed the lesions to not be physiologically significant. No significant obstructive coronary artery disease. Right heart catheterization did reveal elevated right heart pressures and pulmonary wedge pressures. This was expected. 3. Right radial artery pseudoaneurysm developing post-procedure. The patient had initially had good hemostasis obtained with Terumo TR band. It was applied according to protocol. It removed according to protocol. After it had been removed, she had bleeding at the right radial catheterization site. Exam yesterday revealed a probable pseudoaneurysm in the right radial access site. There is a pulsatile hematoma at this site. No evidence for arterial insufficiency in right hand. Subsequent ultrasound confirmed the presence of a pseudoaneurysm. The TR band was reapplied for 2 hours. Following this, the pulsatile nature of the hematoma resolved. A followup ultrasound of the right radial artery revealed no evidence of free communication between the right radial artery and the hematoma. Good flow in the right radial artery. The patient's right wrist pain is markedly decreased since the reapplication of the Terumo TR band yesterday afternoon. 4. Chronic atrial fibrillation. Controlled ventricular response. 5. Hyperdynamic left ventricular systolic function. 6. Prerenal azotemia. Contraction alkalosis. 7. She is on 2 different formulations of diltiazem. She is receiving 120 mg of diltiazem slow release b.i.d. She is receiving 60 mg of diltiazem immediate release every 6 hours. Total diltiazem dose with the combination of these 2 medications is 480 mg per day. Her ventricular rate is controlled today. Her blood pressure is good. We would recommend switching her to diltiazem sustained release 240 mg b.i.d. This will achieved the current total dose of diltiazem at 480 mg. RECOMMENDATIONS: 1. It is unclear at this time when the patient is being transferred to [facility] in [facility] for consideration of undergoing TAVR. Her Xarelto should be held at least 24 hours prior to performance of any procedure. 2. Would switch diltiazem to diltiazem slow release 240 mg b.i.d. 3. She is currently on 15 mL of normal saline per hour. Can Hep-Lock her IV. 4. No other cardiac recommendations at this time. Await transfer for evaluation of the patient undergo a TAVR. At this time, her severe aortic stenosis is her most critical medical issue. JOSELINE
--- NOTE | 2016-10-01 13:36 | PULMONARY PROGRESS NOTE ---
DATE: 10/01/2016 TIME: 12:15 p.m. SUBJECTIVE: The patient is somewhat more irritable today. She is not having any cough or shortness of breath. It is really just a little thing that bother her. She has been frustrated by the complications getting to [facility]. Hopefully, this transfer will happen tomorrow. She has been physiologically quite stable. OBJECTIVE: GENERAL: The patient was alert. She was cooperative. VITAL SIGNS: She is afebrile. Heart rate was 80 beats per minute. The rhythm is irregular. Blood pressure is 119/74. Respiratory rate is 20. LUNGS: Dc were clear bilaterally. Saturation was 97% on 2 liters. EXTREMITIES: The right arm has a fair amount of ecchymosis in the forearm. Dr. Mack's note was read regarding her arm. I also discussed the situation with him. Extremities showed no edema. LABORATORY DATA: White count today is 8.82. Hemoglobin 11.5. Platelets 361,000. Electrolytes show sodium 137, potassium 3.9, chloride 96, and bicarbonate 36. The bicarbonate reflects a significant increase compared with 3 days ago when it was only 26. This seems quite unusual because she had not had high CO2 at any time. IMPRESSIONS: 1. Chronic obstructive pulmonary disease - severe. 2. Critical aortic stenosis. 3. Small left pleural effusion. COMMENTS AND RECOMMENDATIONS: Hopefully, the patient will get transferred tomorrow. Would continue for now with her current treatment. She really could go to oral steroids, but she requested to stay on the IV for now.
--- NOTE | 2016-10-01 16:55 | Family Medicine Progress Note ---
Progress Note Date of Service October 01, 2016. Subjective Pt evaluation today including: conversation w/ patient, physical exam, chart review, lab review, review of studies Pain: Right wrist pain 3/10 reported this morning Voiding: no voiding problems Patient is resting comfortably sitting in bedside chair this afternoon with no acute complaints overnight. Patient is feeling better since admission and he shortness of breath is improved. Constitutional: No chills, No fever Respiratory: No cough, No shortness of breath Cardiovascular: No chest pain Abdomen: No nausea, No pain, No vomiting Female : No dysuria Medications Current Inpatient Medications Medications (Trade) Dose Ordered Sig/Yared Route Start Time Stop Time Status Last Admin Dose Admin Acetaminophen (Tylenol Tab) 650 mg Q4H PRN PO 09/23/16 18:15 10/23/16 18:14 09/23/16 23:47 650 MG Al Hydrox/Mg Hydrox/Simethicone (Maalox Max Susp) 15 ml Q4H PRN PO 09/23/16 18:15 10/23/16 18:14 Magnesium Hydroxide (Milk Of Magnesia Susp) 30 ml Q12H PRN PO 09/23/16 18:15 10/23/16 18:14 Ondansetron HCl (Zofran Inj) 4 mg Q6H PRN IV 09/23/16 18:15 10/23/16 18:14 Nitroglycerin (Nitrostat Tab) 0.4 mg UD PRN SL 09/23/16 18:15 10/23/16 18:14 Polyethylene (Miralax Powder Packet) 17 gm DAILY PRN PO 09/23/16 18:15 10/23/16 18:14 09/25/16 17:45 17 GM Budesonide/ Formoterol Fumarate (Symbicort 80/ 4.5 Inh) 2 puffs BID INH 09/23/16 21:00 10/23/16 20:59 10/01/16 09:20 2 PUFFS Ergocalciferol (Vitamin D Cap) 50,000 interunit We@0900 PO 09/27/16 09:00 10/27/16 08:59 09/27/16 07:38 50,000 INTERUNIT Ipratropium [place] (Atrovent 0.02% 0.5MG/2.5ML Neb) 0.5 mg Q6R PRN INH 09/23/16 18:15 10/23/16 18:14 09/24/16 14:19 0.5 MG Levalbuterol (Xopenex 0.63 Mg/ 3 Ml Neb) 0.63 mg Q6R PRN INH 09/23/16 18:15 10/23/16 18:14 09/24/16 14:19 0.63 MG Levothyroxine Sodium (Synthroid Tab) 75 mcg DAILYBB PO 09/24/16 06:00 10/24/16 06:59 10/01/16 06:13 75 MCG Magnesium Chloride (Slow-Mag Tab) 64 mg QAM PO 09/24/16 09:00 10/24/16 08:59 10/01/16 09:20 64 MG Multivitamins (Multivitamin Tab) 1 tab QAM PO 09/24/16 09:00 10/24/16 08:59 10/01/16 09:21 1 TAB Potassium Chloride (Klor-Con M10) 10 meq DAILY PRN PO 09/23/16 18:15 10/23/16 18:14 Rivaroxaban (Xarelto Tab) 15 mg QPM PO 09/23/16 21:00 10/23/16 20:59 Future hold 09/30/16 21:23 15 MG Senna/Docusate Sodium (Senokot S Tab) 1 tab BID PO 09/23/16 21:00 10/23/16 20:59 10/01/16 09:20 1 TAB Travoprost (Travatan Z) 1 drops HS OPB 09/23/16 21:00 10/23/16 20:59 09/30/16 21:24 1 DROPS Artificial Tears (Artificial Tears) 1 drops HS OPB 09/23/16 21:00 10/23/16 20:59 09/30/16 21:24 1 DROPS Tiotropium [place] (Spiriva Handihaler Inhaler) 1 puff QAM INH 09/24/16 09:00 10/24/16 08:59 10/01/16 09:21 1 PUFF Diltiazem HCl (Cardizem Tab) 60 mg Q6H PO 09/25/16 11:30 09/25/17 19:00 10/01/16 06:13 60 MG Furosemide (Lasix Tab) 20 mg DAILY PO 09/26/16 09:00 10/26/16 08:59 10/01/16 09:20 20 MG Diltiazem HCl (Cardizem Sr) 120 mg BID PO 09/26/16 21:00 10/26/16 20:59 10/01/16 09:20 120 MG Pantoprazole Sodium 40 mg 40 mg QAM PO 09/28/16 09:00 10/28/16 08:59 10/01/16 09:21 40 MG Lorazepam 0.25 mg/ Syringe 0.25 ml @ 1 mls/min HS IV 09/29/16 21:00 10/29/16 20:59 09/30/16 21:20 1 MLS/MIN Sodium Chloride 1,000 ml @ 15 mls/hr Q24H IV 09/29/16 12:52 10/29/16 12:51 Sodium Chloride (Nss 1000ml) 250 ml @ 999 mls/hr Q16M PRN IV 09/29/16 12:52 10/29/16 12:51 Atropine Sulfate (Atropine Sulfate 0.1MG/Ml Inj) 0.6 mg PRN PRN IV 09/29/16 13:00 10/29/16 12:59 Hydrochlorothiazide 12.5 mg 12.5 mg HS PO 09/29/16 21:00 10/29/16 20:59 09/30/16 21:23 12.5 MG Methylprednisolone Sodium Succinate/ Syringe (Solu-Medrol IV/ Syringe) 0.32 ml @ 1.5 mls/min Q12 IV 09/30/16 21:00 10/30/16 20:59 10/01/16 09:21 1.5 MLS/MIN Bisacodyl (Dulcolax Supp) 10 mg DAILY PRN AR 09/30/16 22:00 10/30/16 21:59 Objective Vital Signs Date Time Temp Pulse Resp B/P Pulse Ox O2 Delivery O2 Flow Rate FiO2 10/01/16 16:20 36.3 81 19 100/56 97 2.0 10/01/16 15:22 90 97 10/01/16 11:00 36.5 79 20 119/74 97 Nasal Cannula 2.0 10/01/16 08:26 36.0 91 20 110/66 94 Nasal Cannula 2.0 10/01/16 08:00 Nasal Cannula 2.0 10/01/16 04:11 35.8 77 18 115/65 95 Nasal Cannula 2.0 10/01/16 04:00 Nasal Cannula 2.0 10/01/16 00:11 35.9 82 18 146/83 92 Nasal Cannula 2.0 10/01/16 00:00 Nasal Cannula 2.0 09/30/16 20:04 36.4 88 22 136/74 94 Room Air 09/30/16 20:00 Nasal Cannula 2.0 09/30/16 17:23 36.1 87 20 125/71 96 Nasal Cannula 2.0 Physical Exam General Appearance: WD/WN, no apparent distress Neck: supple, no carotid bruits Respiratory/Chest: chest non-tender, lungs clear, normal breath sounds, no respiratory distress, no accessory muscle use Cardiovascular: regular rate, rhythm, no gallop, no murmur Abdomen: non tender, soft Extremities: non-tender, no pedal edema, no calf tenderness, + pertinent finding (bruising over right wrist from cath placement) Neurologic/Psychiatric: alert, normal mood/affect, oriented x 3 Laboratory Results Results Past 24 Hours Test 10/01/16 05:33 Range/Units White Blood Count 8.82 4.8-10.8 K/uL Red Blood Count 3.72 4.2-5.4 M/uL Hemoglobin 11.5 12.0-16.0 g/dL Hematocrit 33.5 37-47 % Mean Corpuscular Volume 90.1 80-100 fL Mean Corpuscular Hemoglobin 30.9 25-34 pg Mean Corpuscular Hemoglobin Concent 34.3 32-36 g/dl RDW Standard Deviation 41.1 36.4-46.3 fL RDW Coefficient of Variation 12.5 11.5-14.5 % Platelet Count 361 130-400 K/uL Mean Platelet Volume 9.7 7.4-10.4 fL Sodium Level 137 136-145 mmol/L Potassium Level 3.9 3.5-5.1 mmol/L Chloride Level 96 98-107 mmol/L Carbon Dioxide Level 36 21-32 mmol/L Anion Gap 5.0 3-11 mmol/L Blood Urea Nitrogen 22 7-18 mg/dl Creatinine 0.81 0.60-1.20 mg/dl Est Creatinine Clear Calc Drug Dose 38.3 ml/min Estimated GFR () 76.8 Estimated GFR (Non- 66.2 BUN/Creatinine Ratio 27.2 10-20 Random Glucose 149 70-99 mg/dl Calcium Level 7.5 8.5-10.1 mg/dl Assessment and Plan 86 year old female with a past medical history of COPD, severe aortic stenosis, atrial fibrillation, CKD I-II, and hypothyroidism admitted with worsening shortness of breath Acute Hypoxic Respiratory Failure - Symptoms currently stable with treatment regimen Secondary to combination of atrial fibrillation, severe aortic stenosis, and some component of diastolic heart failure. CXR on admission showed early interstitial edema. Previous ECHO 08/02/15 showed LVEF > 70%, severe aortic stenosis with calculated BINA 0.5cm2, mild aortic regurgitation, moderate to severe mitral annular calcification with mild mitral regurgitation, grade I diastolic dysfunction. Recent ECHO shows new pulmonary HTN. Cardiology and pulmonology consulted - recs appreciated. Cardiac catheterization performed on 09/29 without complication - 95 on 2L NC this am - BiPAP PRN - Lasix 20mg and HCTz 12.5mg for fluid overload - Referral to [facility] in [place] for TAVR - Outpatient appt scheduled - Transport to [facility] Sunday at 2pm COPD - Shortness of breath improving - Symbicort 2 puff BID - Duoneb - Xopenex and Atrovent PRN - Spiriva 1 puff qAM - Methylprednisone 40mg q12h --> Transition to 20mg PO prednisone tomorrow - Pantoprazole 40mg daily for GI prophylaxis Anxiety - Patient being followed by psych - Instructed to take Ativan only in supervised setting due to fall risk - Discharge tomorrow on PO 0.5mg q6 PRN Lorazepam Right Wrist Pseudoaneurysm - Resolved with band treatment - Discovered by Dr. Mack at bedside after Cardiac Catheterization at site on the right wrist - Partially thrombosed 3.1 x 2.1 x 1.2 cm pseudoaneurysm confirmed with US study - Terumo TR band was placed on the right wrist for 2 hours. The original inflation pressure was 15 atmospheres. The pressure was reduced after 45 minutes. - Aneurysm resolved after treatment Diarrhea - patient not on antibiotics currently, but did complete a course recently. Diarrhea improved. Stool sample not collected for c.diff toxin Atrial Fibrillation with RVR - Currently rate controlled. Received Diltiazem drip on admission with bolus, then switched to PO. TSH low with upper normal FT4 , history of taking excess Synthroid for weight loss - Change dose of PO Diltiazem SR to 240mg BID - Hold Xarelto until procedure - Make sure to restart after TAVR Leukocytosis - Resolved. Possibly secondary to steroid use after previous admission. WBC on admission 15.95, now WNL. Afebrile, Blood Cultures negative, CXR shows no infiltrates Hematuria - UA positive for RBC. 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 Extensive work up has already been done. Hypertension - BP adequately controlled - Lasix 20mg - HCTZ 12.5mg Hypothyroidism - Low TSH on admission. Patient possibly taking extra doses of Synthroid for weight loss - Synthroid 75mcg - Monitor TSH as outpatient DVT Prophylaxis - Hold Xarelto until after TAVR Code Status - DNR Reviewed: Pt Seen/Exam by Me History Resident Physician Supervision Note: I interviewed and examined the patient. Discussed with Dr. Kat and agree with findings and plan as documented in the note. Any exceptions or clarifications are listed here: Feels dyspneic with exertion, otherwise is off of her nasal cannula at rest but needs oxygen with exertion. Right wrist with bruising and mild pain but improved from yesterday. Tele A-fib with controlled rates, vitals reviewed No acute distress irreg irreg with normal rate, 3 out of 6 harsh systolic ejection murmur at the right upper sternal border decreased BS throughout but no wheezes crackles or rhonchi Ext trace+ pitting edema of the ankles and distal legs, no calf tenderness, sarcopenia SKin no rashes 86 yo female with severe , acute on chronic hypoxemic resp failure, severe COPD, acute on chronic diastolic CHF. -Continue lasix and HCTZ for lower extremity edema -we have arranged for discharge tomorrow with direct transportation to the ER at [facility] in [facility] with plans for admission there for TAVR-I confirmed the transportation time of 2:00 PM on Sunday with Case management, I spoke with the patient's niece Susanne who is a nurse at the hospital where she is going to, and I left a message for her son with updates on her disposition -The advertising inserter there is aware of her case, however she does not need to be a direct transfer as she is stable for discharge -Cardiac cath for preoperative for TAVR completed here and no significant obstruction, Right sided cath done as well -continue supplemental O2 2LNC weaned down and back to baseline -APpreciate Cardiology and Pulm consults -Switch to by mouth steroids and taper down for discharge -continue supportive care for severe anxiety, but with some paranoia as well--> Psychiatry consult appreciated the patient is unwilling to take any psychiatric medications except lorazepam when necessary which is fine in a supervised setting Documented By: Greta Prasad
[2016-10-01] MEDS ORDERED: LORAZEPAM 2 MG/ML 1 ML VIAL IV PRN (17:30)
[2016-10-01] MEDS ORDERED: LORAZEPAM INJ 0.5 MG in SYRINGE 0.75 ML IV PRN (17:45)
[2016-10-01] MEDS: LORAZEPAM INJ 0.25 MG in SYRINGE 0.125 ML IV SCH (21:00)
[2016-10-01] MEDS: HYDROCHLOROTHIAZIDE 25 MG TAB PO SCH (21:22)
[2016-10-01] MEDS: TRAVOPROST Z 0.004% OPH SOLN 2.5 ML BTL OPB SCH (21:23)
[2016-10-01] MEDS: ARTIFICIAL TEARS OP SOLN OPB SCH ×2 (21:23)
[2016-10-02 00:12] VITALS: BP 132/73; PULSE 69; TEMP 35.6; O2SAT 96
[2016-10-02 04:32] VITALS: BP 124/74; PULSE 73; TEMP 35.8; O2SAT 99
[2016-10-02] MEDS: LEVOTHYROXINE 75 MCG TAB PO SCH (05:41)
[2016-10-02] MEDS: DILTIAZEM HCL 60 MG TAB PO SCH (05:41)
[2016-10-02] MEDS: ACETAMINOPHEN 325 MG TAB PO PRN (05:45)
[2016-10-02 07:51] VITALS: BP 99/82; PULSE 64; TEMP 36.3; O2SAT 99
[2016-10-02] MEDS ORDERED: LORAZEPAM 0.5 MG TAB PO PRN (08:00)
[2016-10-02] MEDS: DOCUSATE SODIUM/SENNA 50/8.6MG TAB PO SCH (08:11)
[2016-10-02] MEDS: PANTOprazole SOD 40 MG TAB PO SCH (08:11)
[2016-10-02] MEDS: MAGNESIUM CHLORIDE 64MG DELAYED REL TAB PO SCH (08:11)
[2016-10-02] MEDS: DILTIAZEM SR 60 MG CAP PO SCH ×2 (08:11→09:00)
[2016-10-02] MEDS: MULTIVITAMIN TAB PO SCH (08:12)
[2016-10-02] MEDS: FUROSEMIDE 20 MG TAB PO SCH (08:12)
[2016-10-02] MEDS: BUDESONIDE/FORMOTEROL FUMARATE 80/4.5 60 PUFFS/INHALER INH SCH (08:12)
[2016-10-02] MEDS: TIOTROPIUM BROMIDE 5 PUFF/90 MCG INH INH SCH (08:13)
--- NOTE | 2016-10-02 10:34 | Discharge Instructions ---
Discharge Instructions Date of Service October 02, 2016. Admission Reason for Admission: Hypoxia, Rapid Atrial Fibrillation Discharge Discharge Diagnosis / Problem: Severe aortic stenosis, COPD Discharge Goals Goal(s): Decrease discomfort, Improve function, Increase independence, Improve disease control, Diagnostic testing, Therapeutic intervention Activity Recommendations Activity Limitations: resume your previous activity Exercise/Sports Limitations: gradually increase as tolerated Shower/Bathe: no limitations . Instructions / Follow-Up Instructions / Follow-Up 86 year old female with a past medical history of COPD, severe aortic stenosis, atrial fibrillation, CKD I-II, and hypothyroidism admitted with worsening shortness of breath Acute Hypoxic Respiratory Failure - improved since admission Likely secondary to combination of atrial fibrillation, severe aortic stenosis, and some component of diastolic heart failure. CXR on admission showed early interstitial edema. Previous ECHO 08/02/15 showed LVEF > 70%, severe aortic stenosis with calculated BINA 0.5cm2, mild aortic regurgitation, moderate to severe mitral annular calcification with mild mitral regurgitation, grade I diastolic dysfunction. Recent ECHO shows new pulmonary HTN. Cardiology and pulmonology consulted - recs appreciated. Cardiac catheterization performed on 09/29 without immediate complication (wrist aneurysm developed after - see below) - Saturating 99% on 2L NC this am + BiPAP PRN (not required in the last few days ) - Lasix 20mg and HCTz 12.5mg for fluid overload - Transport to [facility] Sunday at 2pm for TAVR procedure Right Wrist Pseudoaneurysm - Occurred secondary to non-compliance with instructions. Resolved with band treatment - Discovered by Dr. Mack at bedside after Cardiac Catheterization at site on the right wrist - Partially thrombosed 3.1 x 2.1 x 1.2 cm pseudoaneurysm confirmed with US study - Terumo TR band was placed on the right wrist for 2 hours. The original inflation pressure was 15 atmospheres. The pressure was reduced after 45 minutes. - Aneurysm resolved after treatment COPD - Shortness of breath improved since admission - Symbicort 2 puff BID - Xopenex and Atrovent PRN - Spiriva 1 puff qAM - Transition to 20mg PO prednisone on 10/02. Plan for 5mg taper every 5 days. - Pantoprazole 40mg daily for GI prophylaxis while on prednisone. Atrial Fibrillation with RVR - Currently rate controlled. Received Diltiazem drip on admission with bolus, then switched to PO. TSH low with upper normal FT4 , history of taking excess Synthroid for weight loss - Change dose of PO Diltiazem SR to 240mg BID - Hold Xarelto in view of procedure 10/03. Resume if TAVR delayed, and resume after TAVR procedure Anxiety - Patient being followed by psych - Instructed to take Ativan only in supervised setting due to fall risk - Discharged on PO 0.5mg q6 PRN Lorazepam Hypertension - BP adequately controlled - Lasix 20mg - HCTZ 12.5mg - Benicar held in view of adequate BP Diarrhea - stools resolved to baseline. Patient was not on antibiotics, but did complete a course early in admission. Stool sample not collected for c.diff toxin because patient declined to provide sample. Leukocytosis - Resolved. Possibly secondary to steroid use after previous admission. WBC on admission 15.95, now WNL. Afebrile, Blood Cultures negative, CXR shows no infiltrates Hematuria - UA positive for RBC. 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 Extensive work up has already been done. Hypothyroidism - Low TSH on admission. Patient possibly taking extra doses of Synthroid for weight loss - Synthroid 75mcg - Monitor TSH as outpatient DVT Prophylaxis - Hold Xarelto until after TAVR Code Status - DNR Current Hospital Diet Patient's current hospital diet: Low Sodium Diet (2gm Na) Discharge Diet Recommended Diet: Low Sodium Diet (2gm Na) Pending Studies Studies pending at discharge: no Medical Emergencies . Who to Call and When: Medical Emergencies: If at any time you feel your situation is an emergency, please call 911 immediately. . Non-Emergent Contact Non-Emergency issues call your: Primary Care Provider, [employer] . . "Provider Documentation" section prepared by Alice Hernandez. . VTE Core Measure Inpt VTE Proph given/why not?: Other Anticoagulation (Anticoagulated with Xarelto for a.fib) Resident Tracking Resident Involvement: Resident Care Provided Care Provided: Adult Hospital Medicine
[2016-10-02] MEDS ORDERED: ACET325T96 PO (10:40)
[2016-10-02] MEDS ORDERED: MRLP17X PO (10:40)
[2016-10-02] MEDS ORDERED: NTRSLP4 SL (10:40)
[2016-10-02] MEDS ORDERED: ATV5 PO (10:40)
[2016-10-02] MEDS ORDERED: PRT40 PO (10:40)
[2016-10-02] MEDS ORDERED: PRD20 PO (10:40)
[2016-10-02] MEDS ORDERED: CRDSR60 PO (10:40)
[2016-10-02] MEDS ORDERED: SPRIN INH (10:40)
[2016-10-02] MEDS ORDERED: OXYCODONE HCL IR 5 MG TAB (IMMEDIATE RELEASE) PO PRN (10:45)
[2016-10-02] MEDS ORDERED: IBUPROFEN 200 MG TAB PO PRN (10:45)
--- NOTE | 2016-10-02 11:22 | CARDIOLOGY PROGRESS NOTE ---
DATE: 10/02/2016 HISTORY OF PRESENT ILLNESS: Ms. Lane is an 86-year-old white female with a history of Severe Aortic Stenosis, acute on chronic Diastolic Congestive Heart Failure, Chronic Atrial Fibrillation (rate controlled and anticoagulated), and severe COPD with Pulmonary Hypertension, who underwent a Cardiac Catheterization on Sunday09/29/2016 in preparation of having a TAVR performed. Her Cardiac Catheterization revealed mild, nonocclusive CAD. This procedure was complicated by a small right wrist pseudoaneurysm. The patient is currently being seen in room 207 and offers no complaints. She currently denies any chest pain, heaviness, tightness or pressure. Shortness of breath has improved significantly, but her breathing is still not at baseline. She denies any palpitations, tachypalpitations, syncope, or near syncope. The patient is being transferred to [facility] for further evaluation and to have her procedure later today. The patient offers no other complaints or concerns. PHYSICAL EXAMINATION: VITAL SIGNS: Temperature is 36.3 degrees axillary, pulse is 70-75 and irregularly irregular, respiratory rate is 16, and blood pressure is 124/74. GENERAL: The patient is in no acute distress. HEENT: Face is symmetric. EOMs intact. Sclerae are anicteric. No perioral cyanosis. NECK: Without adenopathy, thyromegaly, or obvious JVD. Jugular venous pressure is just above the clavicle sitting upright in bed. CHEST AND LUNGS: With diminished breath sounds throughout, but otherwise clear. No wheezes or rales. CARDIOVASCULAR: S1 and S2 are irregularly irregular with a grade 2-3/6 crescendo decrescendo basal systolic murmur and a markedly reduced to absent aortic valve closure sound. PMI is nondisplaced. No diastolic murmurs. No lifts, heaves, or thrills. No abdominal, aortic or renal bruits. ABDOMEN: Bowel sounds present. EXTREMITIES: Without clubbing, cyanosis or edema. NEUROLOGIC: The patient is awake, alert, and interactive. Answers questions appropriately. Speech is clear. Normal movement of bilateral upper and lower extremities. ASSESSMENT: 1. Severe Aortic Stenosis, candidate for TAVR. 2. Permanent Atrial Fibrillation (rate controlled and anticoagulated). 3. Mild, nonocclusive CAD (cardiac catheterization on 09/29/2016). 4. Right radial artery pseudoaneurysm. 5. Severe COPD. 6. Pulmonary Hypertension. PLAN: 1. The patient remains stable from cardiac standpoint. Her heart failure symptoms have improved dramatically. 2. Her heart rate remains well controlled. 3. Continue Cardizem-CD 240 mg b.i.d. 4. Continue Hydrochlorothiazide 12.5 mg daily. 5. Continue Lasix 20 mg daily. 6. Continue Slow-Mag 64 mg daily. 7. Continue Potassium Chloride as directed. 8. Sublingual Nitroglycerin p.r.n. 9. Continue treating underlying COPD. 10. The patient is stable from a cardiac standpoint for transfer to [facility] for further evaluation of TAVR. JOSELINE
[2016-10-02 11:46] VITALS: BP 124/63; PULSE 90; TEMP 36.6; O2SAT 95
[2016-10-02 12:55] VITALS: BP 124/63; PULSE 90; TEMP 36.6; O2SAT 95
--- NOTE | 2016-10-02 13:42 | Discharge Instructions ---
Discharge Instructions Date of Service October 02, 2016. Admission Reason for Admission: Hypoxia, Rapid Atrial Fibrillation Discharge Discharge Diagnosis / Problem: Severe aortic stenosis, COPD Discharge Goals Goal(s): Increase independence, Improve disease control, Diagnostic testing, Therapeutic intervention Activity Recommendations Activity Limitations: resume your previous activity . Current Hospital Diet Patient's current hospital diet: Low Sodium Diet (2gm Na) Discharge Diet Recommended Diet: Low Sodium Diet (2gm Na) Pending Studies Studies pending at discharge: no Medical Emergencies . Who to Call and When: Medical Emergencies: If at any time you feel your situation is an emergency, please call 911 immediately. . Non-Emergent Contact Non-Emergency issues call your: Primary Care Provider, [employer] . . "Provider Documentation" section prepared by Alice Hernandez. . VTE Core Measure Inpt VTE Proph given/why not?: Other Anticoagulation (Anticoagulated with Xarelto for a.fib) Resident Tracking Resident Involvement: Resident Care Provided Care Provided: Adult Hospital Medicine
--- NOTE | 2016-10-02 17:15 | Progress Note ---
Progress Note Date of Service October 02, 2016. Progress Note Resident Physician Supervision Note: I interviewed and examined the patient. Discussed with Dr. Hernandez and agree with findings and plan as documented in the note. Any exceptions or clarifications are listed here: None Documented By: Nas Adler see Dr Hernandez's full discharge summary for further details d/w pt - she understands transfer for eval for TAVR but we can't promise that the procedure will be done (or when it will be done) -discussed transfer in current condition vs inpatient transfer to closer facility vs outpatient management and expedited outpatient evaluation. given that she refuses to go anywhere else but [facility], and given that she appears likely to fail outpatient management (with her severity of illness and recent track record) - appears that [facility] transfer is her best option. stable to go by medical transport as arranged. severe aortic stenosis w CHF - for transfer to [facility] and direct admission there severe COPD (PFTs last fall (2015)) showing FEV1 0.69L (44% predicted) FVC 1.38L (63% predicted) and FEV1/FVC 50% - ongoing inhaler management, supplemental O2, supportive care otherwise as per Dr Hernandez's discharge summary
--- NOTE | 2016-10-03 05:20 | Discharge Summary ---
Discharge Summary Date of Service October 02, 2016. Discharge Summary Admission Date: September 23, 2016 at 18:24 Discharge Date: October 02, 2016 Discharge Disposition: Acute care facility Principal Diagnosis: Severe aortic stenosis Problems/Secondary Diagnoses: (1) Hypoxia Status: Chronic Immunizations: Have You Had Influenza Vaccine: No History of Tetanus Vaccine?: utd History of Hepatitis B Vaccine: No Discharge Exam Patient had improved saturations, not requiring Bipap recently. Tolerating diet and sleeping without issue. Patient keen for cardiac procedure for improved QoL. Review of Systems: Constitutional: No chills, No fever Respiratory: + dyspnea on exertion, No cough, No shortness of breath, No wheezing Cardiovascular: No chest pain, No edema, No palpitations Abdomen: No constipation, No diarrhea, No nausea, No pain, No vomiting Genitourinary - Female: No dysuria, No hematuria Physical Exam: General Appearance: no apparent distress, + thin Eyes: normal inspection ENT: + pertinent finding (uses hearing aid) Neck: supple Respiratory/Chest: lungs clear, no respiratory distress, no accessory muscle use, + rhonchi (scattered) Cardiovascular: normal peripheral pulses, + diastolic murmur, + systolic murmur, + irregularly irregular Abdomen / GI: normal bowel sounds, non tender, soft Extremities: no calf tenderness, normal capillary refill, + pedal edema ( minimal, improved) Neurologic/Psychiatric: alert, normal mood/affect, oriented x 3 Skin: normal color, warm/dry, no rash Hospital Course 86 year old female with a past medical history of COPD, severe aortic stenosis, atrial fibrillation, CKD I-II, and hypothyroidism admitted with worsening shortness of breath Acute Hypoxic Respiratory Failure - improved since admission Likely secondary to combination of atrial fibrillation, severe aortic stenosis, and some component of diastolic heart failure. CXR on admission showed early interstitial edema. Previous ECHO 08/02/15 showed LVEF > 70%, severe aortic stenosis with calculated BINA 0.5cm2, mild aortic regurgitation, moderate to severe mitral annular calcification with mild mitral regurgitation, grade I diastolic dysfunction. Recent ECHO shows new pulmonary HTN. Cardiology and pulmonology consulted - recs appreciated. Cardiac catheterization performed on 09/29 without immediate complication (wrist aneurysm developed after - see below) - Saturating 99% on 2L NC this am + BiPAP PRN (not required in the last few days ) - Lasix 20mg and HCTz 12.5mg for fluid overload - Transport to [facility] 10/02 at 2pm for TAVR procedure Right Wrist Pseudoaneurysm - Occurred secondary to non-compliance with instructions. Resolved with band treatment - Discovered by Dr. Mack at bedside after Cardiac Catheterization at site on the right wrist - Partially thrombosed 3.1 x 2.1 x 1.2 cm pseudoaneurysm confirmed with US study - Terumo TR band was placed on the right wrist for 2 hours. The original inflation pressure was 15 atmospheres. The pressure was reduced after 45 minutes. - Aneurysm resolved after treatment COPD - Shortness of breath improved since admission - Symbicort 2 puff BID - Xopenex and Atrovent PRN - Spiriva 1 puff qAM - Transition to 20mg PO prednisone on 10/02. Plan for 5mg taper every 5 days. - Pantoprazole 40mg daily for GI prophylaxis while on prednisone. - Follow up with Dr. Rucker, pulmonology advised Atrial Fibrillation with RVR - Currently rate controlled. Received Diltiazem drip on admission with bolus, then switched to PO. TSH low with upper normal FT4 , history of taking excess Synthroid for weight loss - Change dose of PO Diltiazem SR to 240mg BID - Hold Xarelto in view of procedure 10/03. Resume if TAVR delayed, and resume after TAVR procedure Anxiety - Patient being followed by psych - Instructed to take Ativan only in supervised setting due to fall risk - Discharged on PO 0.5mg q6 PRN Lorazepam Hypertension - BP adequately controlled - Lasix 20mg - HCTZ 12.5mg - Benicar held in view of adequate BP Diarrhea - stools resolved to baseline. Patient was not on antibiotics, but did complete a course early in admission. Stool sample not collected for c.diff toxin because patient declined to provide sample. Leukocytosis - Resolved. Possibly secondary to steroid use after previous admission. WBC on admission 15.95, now WNL. Afebrile, Blood Cultures negative, CXR shows no infiltrates Hematuria - UA positive for RBC. 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 Extensive work up has already been done. Hypothyroidism - Low TSH on admission. Patient possibly taking extra doses of Synthroid for weight loss - Synthroid 75mcg - PCP to monitor TSH as outpatient DVT Prophylaxis - Hold Xarelto until after TAVR Code Status - DNR Total Time Spent: Greater than 30 minutes This includes examination of the patient, discharge planning, medication reconciliation, and communication with other providers. Discharge Instructions Please refer to the electronic Patient Visit Report (Discharge Instructions) for additional information.
[2016-10-23] MEDS ORDERED: SYMIN/8045 INH (06:42)
[2016-10-23] MEDS ORDERED: XRL15 PO (06:48)
[2016-10-23] MEDS ORDERED: HYDR12.55 PO (15:04)
[2017-04-16] MEDS ORDERED: LEVO1TAB35 PO ×2 (10:34→15:19)
[2017-04-16] MEDS ORDERED: DXY100 PO (10:34)
== END 2016-10-02 16:30 | disposition short-term general hospital (02) | DRG 286 ==
LOC: ENRESERVDT → ENRESERVTM → EDBD 15:20 → C.EDB 15:21 → C.2E 18:24
PROVIDERS: ADMIT Family Medicine; ATTEND Family Medicine
PROC: 4A023N6 Measurement of Cardiac Sampling and Pressure, Right Heart, Percutaneous Approach (ICD-10-PCS; principal; 2016-09-29 09:30)
PROC: 4A033BC Measurement of Arterial Pressure, Coronary, Percutaneous Approach (ICD-10-PCS; principal; 2016-09-29 09:30)
PROC: B2111ZZ Fluoroscopy of Multiple Coronary Arteries using Low Osmolar Contrast (ICD-10-PCS; principal; 2016-09-29 09:30)
DX: I35.0 Nonrheumatic aortic (valve) stenosis (principal); J96.21 Acute and chronic respiratory failure with hypoxia; J44.0 Chronic obstructive pulmonary disease with (acute) lower respiratory infection; I67.82 Cerebral ischemia; I50.33 Acute on chronic diastolic (congestive) heart failure; J90 Pleural effusion, not elsewhere classified; N18.2 Chronic kidney disease, stage 2 (mild); I74.2 Embolism and thrombosis of arteries of the upper extremities; J44.1 Chronic obstructive pulmonary disease with (acute) exacerbation; I13.0 Hypertensive heart and chronic kidney disease with heart failure and stage 1 through stage 4 chronic kidney disease, or unspecified chronic kidney disease; I72.1 Aneurysm of artery of upper extremity; Z91.040 Latex allergy status; Z88.0 Allergy status to penicillin; Z88.2 Allergy status to sulfonamides; I48.2 Chronic atrial fibrillation; J20.9 Acute bronchitis, unspecified; E78.5 Hyperlipidemia, unspecified; E83.51 Hypocalcemia; E03.9 Hypothyroidism, unspecified; Z91.19 Patient's noncompliance with other medical treatment and regimen; F41.9 Anxiety disorder, unspecified; I25.10 Atherosclerotic heart disease of native coronary artery without angina pectoris; F39 Unspecified mood [affective] disorder; R31.9 Hematuria, unspecified; I27.2 Other secondary pulmonary hypertension; M81.0 Age-related osteoporosis without current pathological fracture; Z87.891 Personal history of nicotine dependence; Z85.820 Personal history of malignant melanoma of skin

== ENCOUNTER 2016-10-23 19:54 | Inpatient (IN) | payer OTHER ==
[~2016-10-23] VITALS: Ht 154.9 cm; Wt 51.2 kg
[~2016-10-23 19:54] MED LIST changes: +ACET325T96 PO; +ATV5 PO; -BNC/40 PO; +CRDSR60 PO; -DILT-113 PO; +HYDR12.55 PO; +HYDROCHLOROTHIAZIDE 25 MG TAB PO SCH; +MRLP17X PO; +NTRSLP4 SL; +PRD20 PO; -PRED-301 PO; +PRT40 PO; +SENNTAB23 PO; +SPRIN INH; +SYMIN/8045 INH; +XRL15 PO
[2016-10-23 19:55] VITALS: PULSE 117; O2SAT 100
[2016-10-23] MEDS ORDERED: ALBUT/IPRATROP 3MG/0.5MG NEB 3 ML VIAL INH STA (20:10)
--- NOTE | 2016-10-23 20:27 | DIAGNOSTIC IMAGING REPORT ---
CHEST ONE VIEW PORTABLE CLINICAL HISTORY: sob dyspnea COMPARISON STUDY: 09/27/2016 FINDINGS: Mild bilateral interstitial prominence. This is unaltered from the prior exam. Slight chronic blunting left lateral costophrenic angle. No evidence for cardiac enlargement. IMPRESSION: Slight chronic interstitial prominence. Trace pleural fluid left base. Otherwise negative study Electronically signed by: Fred Metzger M.D. 10/23/2016 8:26 PM Dictated Date/Time: 10/23/2016 8:25 PM
[2016-10-23 21:38] LABS: EOS % 0.3 %; HEMATOCRIT 24.4 % (37-47); IG% 0.7 %; LYMPH % 3.7 %; LYMPH ABS # 0.32 K/uL (1.2-3.4); MEAN CELL VOLUME 89.1 fL (80-100); MEAN CORPUSCULAR HGB CONC 34.8 g/dl (32-36); MEAN PLATELET VOLUME 8.8 fL (7.4-10.4); MONO % 3.8 %; NEUT % 91.5 %; PLATELET COUNT 356 K/uL (130-400); RED BLOOD COUNT 2.74 M/uL (4.2-5.4)
[2016-10-23 21:48] LABS: INR 1.3 (0.9-1.1); PARTIAL THROMBOPLASTIN RATIO 1.4
[2016-10-23 21:56] LABS: BUN/CREATININE RATIO 21.3 (10-20); CREATININE 0.39 mg/dl (0.60-1.20); POTASSIUM 2.7 mmol/L (3.5-5.1)
[2016-10-23 22:00] LABS: ALB/GLOB RATIO 0.8 (0.9-2); CKMB/CK RATIO 3.7 (0-3.0)
[2016-10-23] MEDS ORDERED: POTASSIUM CHLORIDE 10 MEQ TABCR PO STA (22:00)
[2016-10-23] MEDS ORDERED: LEVO75TA5 PO (22:00)
[2016-10-23 22:03] LABS: CALCIUM 7.8 mg/dl (8.5-10.1)
[2016-10-23] MEDS ORDERED: LEVALBUTEROL 0.63MG/3 ML NEB INH STA (22:11)
--- NOTE | 2016-10-23 22:11 | EMERGENCY ROOM VISIT NOTE ---
History Report prepared by Luana: Cesar Arambula Under the Supervision of: Dr. Andrea Reed D.O. First contact with patient: 20:03 Chief Complaint: SHORTNESS OF BREATH Stated Complaint: RESP-DISTRESS Nursing Triage Summary: PT FROM HOME, resp distress x 2 days. pt just got back from [facility] for valve repalcement d/ on 10/18. seen by home health. tachycardic this am. this pm called 911. duoneb and albuterol in route. pt requested cpap. 02/22 30%. pt wears home o2. pt anxious. History of Present Illness The patient is an 86 year old female who presents to the Emergency Room with complaints of constant shortness of breath beginning prior to arrival. The patient states that she has a history of COPD. She reports that she is on 2L oxygen at home, but it was too low and she was not able to breath. She states "that if I do not have my oxygen raised to 3L, I will ." She reports that she cannot walk because exertion makes her discomfort worse. The patient states she has an appointment with JESSICA Solares tomorrow at 1300. She reports that she thought she would be able to make it till then, but she could not. She states that she is having problems with her breathing not her heart. The patient reports that she has a history of A-fib, and she was released from a [facility] days ago where she had an aortic valve replaced through her groin. She notes that when she was released, she was told that she did not need to be on oxygen for her heart condition. The patient states that she does not have a PCP because they are 'no good'. Source of History: patient Onset: prior to arrival Position: other (global) Quality: other (shortness of breath) Timing: constant Modifying Factors (Worsening): exertion Review of Systems See HPI for pertinent positives & negatives. A total of 10 systems reviewed and were otherwise negative. 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 (20) Neck pain (21) Pneumonia (22) Recurrent falls (23) Right humeral fracture (24) Severe aortic stenosis by prior echocardiogram Family History Heart disease Hypertension Social History Smoking Status: Former Smoker Alcohol Use: none Drug Use: none Marital Status: Housing Status: lives alone Occupation Status: retired Current/Historical Medications Scheduled Budesonide/Formoterol Fumarate (Symbicort 80/4.5 Inhaler), 2 PUFFS PO BID Carboxymethylcellulose-Glyceri (Refresh Optive Advanced), 1 DROP OPB HS Diltiazem HCl (Diltiazem HCl ER), 240 MG PO BID Ergocalciferol (Vitamin D), 50,000 UNITS PO WK Hydrochlorothiazide (Hydrochlorothiazide), 1 TAB PO HS Levothyroxine Sodium (Levothyroxine Sodium), 75 MCG PO QAM Magnesium Chloride (Slow-Mag Tab), 64 MG PO QAM Multivitamin (Multivitamin), 1 TAB PO QAM Oxygen (Oxygen), 3-4 LITERS NA HS Pantoprazole (Pantoprazole Sodium), 40 MG PO QAM Prednisone (Prednisone), 10 MG PO QAM Rivaroxaban (Xarelto), 15 MG PO QPM Sennosides-Docusate Sodium (Stool Softener), 1 TAB PO BID Tiotropium [place] (Spiriva Handihaler), 1 PUFF INH QAM Travoprost (Travatan Z), 1 DROPS OPB HS Scheduled PRN Acetaminophen Tab (Tylenol), 650 MG PO Q4H PRN for Pain Furosemide (Lasix), 20 MG PO DAILY PRN for WEIGHT GAIN Ipratropium [place] (Ipratropium [place]), 0.5 MG NEB Q6H PRN for Shortness of Breath Levalbuterol (Levalbuterol HCl), 0.63 MG NEB Q6H PRN for Shortness of Breath Lorazepam (Lorazepam), 0.5 MG PO Q6H PRN for Anxiety Nitroglycerin (Nitrostat), 0.4 MG SL UD PRN for Chest Pain Polyethylene (Miralax), 17 GM PO DAILY PRN for Constipation Potassium Chloride (Micro-K Ext Rel), 10 MEQ PO DAILY PRN for WITH LASIX Allergies Coded Allergies: Clonidine (Verified Allergy, Mild, SHORTNESS OF BREATH, 09/23/16) Iodinated Diagnostic Agents (Verified Allergy, Unknown, "IT JUST AFFECTS ME AND I CAN'T EXPLAIN IT", 09/23/16) Latex1 -Allergic Contact Dermititis (Verified Allergy, Unknown, RASH, ) Penicillins (Verified Allergy, Unknown, UNKNOWN, 09/23/16) Sulfa Antibiotics (Verified Allergy, Unknown, "SWELLING IN MOUTH AND DRIED OUT", 09/23/16) Physical Exam Vital Signs Date Time Temp Pulse Resp B/P (MAP) Pulse Ox O2 Delivery O2 Flow Rate FiO2 10/23/16 21:29 112 22 139/85 97 Nasal Cannula 3.0 10/23/16 20:07 98 CPAP 30 10/23/16 20:07 98 CPAP 30 10/23/16 20:05 103 10/23/16 20:04 36.7 117 29 143/92 98 CPAP 30 10/23/16 19:57 98 CPAP 30 10/23/16 19:55 117 100 30 Physical Exam CONSTITUTIONAL/VITAL SIGNS: Reviewed / noted above. GENERAL: Non-toxic in appearance. INTEGUMENTARY: Warm, dry, and [place]. HEAD: Normocephalic. EYES: without scleral icterus or trauma. ENT/OROPHARYNX: clear and moist. LYMPHADENOPATHY/NECK: Is supple without lymphadenopathy or meningismus. RESPIRATORY: Mild expiatory wheezing bilaterally CARDIOVASCULAR: Tachycardic rate and rhythm. GI/ABDOMEN: Soft and nontender. No organomegaly or pulsatile mass. No rebound or guarding. Normal bowel sounds. EXTREMITIES: Warm and well perfused. BACK: No CVA tenderness. NEUROLOGICAL: Intact without focal deficits. PSYCHIATRIC: normal affect. MUSCULOSKELETAL: Normally developed with good muscle tone. Medical Decision & Procedures ER Provider Diagnostic Interpretation: X ray results and stated below per my interpretation and radiology interpretation. CHEST ONE VIEW PORTABLE CLINICAL HISTORY: sob dyspnea COMPARISON STUDY: 09/27/2016 FINDINGS: Mild bilateral interstitial prominence. This is unaltered from the prior exam. Slight chronic blunting left lateral costophrenic angle. No evidence for cardiac enlargement. IMPRESSION: Slight chronic interstitial prominence. Trace pleural fluid left base. Otherwise negative study Electronically signed by: Fred Metzger M.D. 10/23/2016 8:26 PM Dictated Date/Time: 10/23/2016 8:25 PM Laboratory Results 10/23/16 21:25 Red Blood Count 2.74, Mean Corpuscular Volume 89.1, Mean Corpuscular Hemoglobin 31.0, Mean Corpuscular Hemoglobin Concent 34.8, Mean Platelet Volume 8.8, Neutrophils (%) (Auto) 91.5, Lymphocytes (%) (Auto) 3.7, Monocytes (%) (Auto) 3.8, Eosinophils (%) (Auto) 0.3, Basophils (%) (Auto) 0.0, Neutrophils # (Auto) 7.96, Lymphocytes # (Auto) 0.32, Monocytes # (Auto) 0.33, Eosinophils # (Auto) 0.03, Basophils # (Auto) 0.00 10/23/16 21:25 Test 10/23/16 21:25 White Blood Count 8.70 K/uL (4.8-10.8) Red Blood Count 2.74 M/uL (4.2-5.4) Hemoglobin 8.5 g/dL (12.0-16.0) Hematocrit 24.4 % (37-47) Mean Corpuscular Volume 89.1 fL (80-100) Mean Corpuscular Hemoglobin 31.0 pg (25-34) Mean Corpuscular Hemoglobin Concent 34.8 g/dl (32-36) Platelet Count 356 K/uL (130-400) Mean Platelet Volume 8.8 fL (7.4-10.4) Neutrophils (%) (Auto) 91.5 % Lymphocytes (%) (Auto) 3.7 % Monocytes (%) (Auto) 3.8 % Eosinophils (%) (Auto) 0.3 % Basophils (%) (Auto) 0.0 % Neutrophils # (Auto) 7.96 K/uL (1.4-6.5) Lymphocytes # (Auto) 0.32 K/uL (1.2-3.4) Monocytes # (Auto) 0.33 K/uL (0.11-0.59) Eosinophils # (Auto) 0.03 K/uL (0-0.5) Basophils # (Auto) 0.00 K/uL (0-0.2) RDW Standard Deviation 48.2 fL (36.4-46.3) RDW Coefficient of Variation 15.2 % (11.5-14.5) Immature Granulocyte % (Auto) 0.7 % Immature Granulocyte # (Auto) 0.06 K/uL (0.00-0.02) Prothrombin Time 14.0 SECONDS (9.0-12.0) Prothromb Time International Ratio 1.3 (0.9-1.1) Activated Partial Thromboplast Time 36.4 SECONDS (21.0-31.0) Partial Thromboplastin Ratio 1.4 Anion Gap 11.0 mmol/L (3-11) Est Creatinine Clear Calc Drug Dose 79.5 ml/min Estimated GFR () 111.0 Estimated GFR (Non- 95.8 BUN/Creatinine Ratio 21.3 (10-20) Calcium Level 7.8 mg/dl (8.5-10.1) Total Bilirubin 0.6 mg/dl (0.2-1) Aspartate Amino Transf (AST/SGOT) 19 U/L (15-37) Alanine Aminotransferase (ALT/SGPT) 17 U/L (12-78) Alkaline Phosphatase 68 U/L (45-117) Total Creatine Kinase 35 U/L (26-192) Creatine Kinase MB 1.3 ng/ml (0.5-3.6) Creatine Kinase MB Ratio 3.7 (0-3.0) Troponin I 0.033 ng/ml (0-0.045) Total Protein 6.2 gm/dl (6.4-8.2) Albumin 2.7 gm/dl (3.4-5.0) Globulin 3.5 gm/dl (2.5-4.0) Albumin/Globulin Ratio 0.8 (0.9-2) Laboratory results as stated above per my review. ECG Indication: SOB/dyspnea Rate (beats per minute): 104 Rhythm: atrial fibrillation Findings: LBBB, no acute ischemic change, no ectopy Comparison ECG Date: 09/13/16 Change: LBBB new ED Course 2010: Ordered Duoneb 3ml INH 2019: Previous medical records were reviewed. The patient was evaluated in room A10. A complete history and physical examination was performed. 2200: Ordered Potassium Chloride 60meq PO 2206: On reevaluation, the patient is resting. I discussed the results and findings with her. She verbalized agreement of the treatment plan. I spoke with Dr. Benitez of the [facility] Hospitalist Service. The patient will be evaluated for further management and care. 2210: Ordered Levalbuterol 0.63mg INH Medical Decision The differential was considered includes acute myocardial infarction, acute coronary syndrome, myocarditis, pericarditis, pericardial effusions /tamponad, esophageal perforation, pulmonary embolism, pneumonia, pneumothorax, cardiomyopathy, congestive heart, anemia , COPD/asthma exacerbation. Medication Reconciliation: I attest that I have personally reviewed the patient' s current medication list. Blood pressure Screening: Patient was found to have an elevated blood pressure and was referred to their primary doctor for recheck and further treatment. This is an 86-year-old female who presents to the ED with a chief complaint of shortness of breath. The patient was discharged from a [facility] after having had her aortic valve replaced intravascularly. The patient states that she has home oxygen but it is only on 2 L. She states that she developed shortness of breath today and came in for evaluation. She feels that her symptoms are related to her lungs and not her heart. She does have a history of A. fib. She is on Xarelto. The patient has a history of COPD. Her physical exam reveals some diminished breath sounds bilaterally with some mild expiratory wheezing. Her oxygen saturations are in the low 90s on 2 L. Chest x -ray did not show any acute disease. CBC reveals some anemia with hemoglobin of 8.5. A twelve-lead EKG reveals A. fib at a rate of 104. Left bundle-branch block is seen. Compared to a previous EKG this is new. The patient's blood work reveals a sodium of 129 and a potassium 2.7. Troponin was negative. The patient was provided with supplemental nasal cannula oxygen. She is oxygenating in the mid 90s with 3 L. She'll be seen by the hospitalist service for further inpatient evaluation and care. She was ordered DuoNeb treatment but states that this would not help. She was given oral potassium. She was ordered Xopenex. Consults Time Called: [id number] Consulting Physician: Dr. Benitez, [facility] Hospitalist Returned Call: [phone] Benitez of the [facility] Hospitalist Service. The patient will be evaluated for further management and care. Impression Primary Impression: Weakness Additional Impressions: Dyspnea Hyponatremia Hypokalemia COPD exacerbation Scribe Attestation The scribe's documentation has been prepared under my direction and personally reviewed by me in its entirety. I confirm that the note above accurately reflects all work, treatment, procedures, and medical decision making performed by me. Departure Information Dispostion Being Evaluated By Hospitalist Referrals RV. Trevizo MD (PCP) Patient Instructions My [facility] Problem Qualifiers
[2016-10-23 22:32] LABS: ANISOCYTOSIS PRESENT; COMPLETE YES; POLYCHROMASIA 1+
[2016-10-23 22:35] VITALS: PULSE 119; O2SAT 97
[2016-10-23] MEDS ORDERED: CLC100 PO (22:37)
[2016-10-23] MEDS ORDERED: ERGO500011 PO (22:37)
[2016-10-23] MEDS ORDERED: XLTOPS OPB (22:37)
[2016-10-23] MEDS ORDERED: FERR1TAB62 PO (22:37)
[2016-10-23] MEDS ORDERED: DILT360C23 PO (22:37)
[2016-10-23] MEDS ORDERED: VNTHFA/IN INH (22:37)
[2016-10-23] MEDS ORDERED: SPRIN/30 INH (22:37)
[2016-10-23] MEDS ORDERED: ASPI-461 PO (22:37)
[2016-10-23] MEDS ORDERED: MAGNESIUM HYDROXIDE SUSP 30 ML UDC PO PRN (23:45)
[2016-10-23] MEDS ORDERED: ONDANSETRON INJ 2 MG/ML 2 ML VIAL IV PRN (23:45)
[2016-10-23] MEDS ORDERED: ACETAMINOPHEN 325 MG TAB PO PRN (23:45)
[2016-10-23] MEDS ORDERED: NITROGLYCERIN 0.4 MG SL PER TAB CHARGE SL PRN (23:45)
[2016-10-23] MEDS ORDERED: IPRATROPIUM BROMIDE NEB SOLN 0.02% 2.5 ML VIAL INH PRN (23:45)
[2016-10-23] MEDS ORDERED: ALBUTEROL HFA 8 GM INHALER INH PRN (23:45)
--- NOTE | 2016-10-23 23:54 | History and Physical ---
History & Physical Date & Time of Service: Oct 23, 2016 at 23:47 Chief Complaint: Resp-Distress Primary Care Physician: No Doctor, Assigned History of Present Illness Source: patient 86-year-old female with a past medical history of COPD, severe aortic stenosis status post TAVR , atrial fibrillation, hypertension, GERD presented to the ER with complaints of shortness of breath. The patient states that she chronically uses 2 L of oxygen at home but after she returned from [place] after her surgery her tank was low of oxygen and she had difficulty breathing. She was scheduled for an appointment with Dr. gibbs tomorrow but she presented to the ER as she was feeling short of breath. Denies any chest pain, dizziness or lightheadedness, fevers or chills, cough. Past Medical/Surgical History Medical Problems: (1) Anxiety Status: Chronic (2) Asthma Status: Chronic (3) Atrial fibrillation with RVR Status: Chronic (4) Back pain Status: Resolved (5) Back pain Status: Resolved (6) Benign hypertension Status: Chronic (7) Bronchitis Status: Resolved (8) Cataract Status: Chronic (9) Critical stenosis of aortic valve Status: Chronic (10) Dehydration Status: Resolved (11) Disorder of gallbladder Status: Chronic (12) Dyspnea Status: Chronic (13) Fall Status: Resolved (14) Humeral head fracture Status: Resolved (15) Hypoxia Status: Chronic (16) Kidney disease Status: Chronic (17) melanoma Status: Resolved (18) Neck pain Status: Resolved (19) Pneumonia Status: Resolved (20) Recurrent falls Status: Chronic (21) Right humeral fracture Status: Resolved Family History Heart disease Hypertension Social History Smoking Status: Former Smoker Drug Use: none Marital Status: Housing status: lives alone Occupational Status: retired Immunizations History of Influenza Vaccine: No History of Tetanus Vaccine?: utd History of Hepatitis B Vaccine: No Allergies Coded Allergies: Clonidine (Verified Allergy, Mild, SHORTNESS OF BREATH, 09/23/16) Iodinated Diagnostic Agents (Verified Allergy, Unknown, "IT JUST AFFECTS ME AND I CAN'T EXPLAIN IT", 09/23/16) Latex1 -Allergic Contact Dermititis (Verified Allergy, Unknown, RASH, ) Penicillins (Verified Allergy, Unknown, UNKNOWN, 09/23/16) Sulfa Antibiotics (Verified Allergy, Unknown, "SWELLING IN MOUTH AND DRIED OUT", 09/23/16) Home Medications Scheduled Aspirin (Aspirin), 81 MG PO Q24H Budesonide/Formoterol Fumarate (Symbicort 80/4.5 Inhaler), 2 PUFFS INH BID Diltiazem HCl (Diltiazem HCl ER), 360 MG PO DAILY Ergocalciferol (Vitamin D 72100 Unit), 50,000 INTER.UNIT PO WK Ferrous Sulfate (Ferrous Sulfate), 325 MG PO BID Hydrochlorothiazide (Hydrochlorothiazide), 12.5 MG PO Q24H Latanoprost (Latanoprost), 1 DROP OPB HS Levothyroxine Sodium (Levothyroxine Sodium), 75 MCG PO QAM Oxygen (Oxygen), 3-4 LITERS NA HS Rivaroxaban (Xarelto), 15 MG PO Q24H Tiotropium [place] (Spiriva [place]), 1 CAP INH QAM Scheduled PRN Albuterol Hfa (Ventolin Hfa), 2 PUFFS INH QID PRN for COPD Docusate Sodium (Docusate Sodium), 100 MG PO TID PRN for Constipation Ipratropium [place] (Ipratropium [place]), 0.5 MG NEB Q6H PRN for Shortness of Breath Levalbuterol (Levalbuterol HCl), 0.63 MG NEB Q6H PRN for Shortness of Breath Nitroglycerin (Nitrostat), 0.4 MG SL UD PRN for Chest Pain Review of Systems Constitutional: No fever, No chills Eyes: No worsening of vision ENT: No hearing loss Respiratory: + shortness of breath, + dyspnea on exertion, No cough Cardiovascular: No chest pain, No palpitations Abdomen: No pain, No nausea Musculoskeletal: No joint pain Genitourinary - Female: No dysuria Neurologic: No memory loss Psychiatric: No depression symptoms Endocrine: No fatigue Physical Exam Vital Signs Date Time Temp Pulse Resp B/P (MAP) Pulse Ox O2 Delivery O2 Flow Rate FiO2 10/23/16 22:51 121 24 85/46 97 Nasal Cannula 3.0 10/23/16 22:35 119 28 97 Nasal Cannula 3.0 10/23/16 21:29 112 22 139/85 97 Nasal Cannula 3.0 10/23/16 20:07 98 CPAP 30 10/23/16 20:07 98 CPAP 30 10/23/16 20:05 103 10/23/16 20:04 36.7 117 29 143/92 98 CPAP 30 10/23/16 19:57 98 CPAP 30 10/23/16 19:55 117 100 30 General Appearance: WD/WN, no apparent distress Eyes: normal inspection ENT: hearing grossly normal Neck: supple Respiratory/Chest: no respiratory distress, no accessory muscle use, + wheezing (few scattered) Cardiovascular: + systolic murmur, + irregularly irregular Abdomen/GI: non tender, soft Extremities/Musculoskelatal: no calf tenderness, + pedal edema (trace) Neurologic/Psych: alert, normal mood/affect, oriented x 3 Skin: normal color Diagnostics Laboratory Results Results Past 24 Hours Test 10/23/16 21:25 Range/Units White Blood Count 8.70 4.8-10.8 K/uL Red Blood Count 2.74 4.2-5.4 M/uL Hemoglobin 8.5 12.0-16.0 g/dL Hematocrit 24.4 37-47 % Mean Corpuscular Volume 89.1 80-100 fL Mean Corpuscular Hemoglobin 31.0 25-34 pg Mean Corpuscular Hemoglobin Concent 34.8 32-36 g/dl Platelet Count 356 130-400 K/uL Mean Platelet Volume 8.8 7.4-10.4 fL Neutrophils (%) (Auto) 91.5 % Lymphocytes (%) (Auto) 3.7 % Monocytes (%) (Auto) 3.8 % Eosinophils (%) (Auto) 0.3 % Basophils (%) (Auto) 0.0 % Neutrophils # (Auto) 7.96 1.4-6.5 K/uL Lymphocytes # (Auto) 0.32 1.2-3.4 K/uL Monocytes # (Auto) 0.33 0.11-0.59 K/uL Eosinophils # (Auto) 0.03 0-0.5 K/uL Basophils # (Auto) 0.00 0-0.2 K/uL RDW Standard Deviation 48.2 36.4-46.3 fL RDW Coefficient of Variation 15.2 11.5-14.5 % Immature Granulocyte % (Auto) 0.7 % Immature Granulocyte # (Auto) 0.06 0.00-0.02 K/uL Polychromasia 1+ Anisocytosis PRESENT Prothrombin Time 14.0 9.0-12.0 SECONDS Prothromb Time International Ratio 1.3 0.9-1.1 Activated Partial Thromboplast Time 36.4 21.0-31.0 SECONDS Partial Thromboplastin Ratio 1.4 Sodium Level 129 136-145 mmol/L Potassium Level 2.7 3.5-5.1 mmol/L Chloride Level 90 98-107 mmol/L Carbon Dioxide Level 28 21-32 mmol/L Anion Gap 11.0 3-11 mmol/L Blood Urea Nitrogen 8 7-18 mg/dl Creatinine 0.39 0.60-1.20 mg/dl Est Creatinine Clear Calc Drug Dose 79.5 ml/min Estimated GFR () 111.0 Estimated GFR (Non- 95.8 BUN/Creatinine Ratio 21.3 10-20 Random Glucose 119 70-99 mg/dl Calcium Level 7.8 8.5-10.1 mg/dl Total Bilirubin 0.6 0.2-1 mg/dl Aspartate Amino Transf (AST/SGOT) 19 15-37 U/L Alanine Aminotransferase (ALT/SGPT) 17 12-78 U/L Alkaline Phosphatase 68 45-117 U/L Total Creatine Kinase 35 26-192 U/L Creatine Kinase MB 1.3 0.5-3.6 ng/ml Creatine Kinase MB Ratio 3.7 0-3.0 Troponin I 0.033 0-0.045 ng/ml Total Protein 6.2 6.4-8.2 gm/dl Albumin 2.7 3.4-5.0 gm/dl Globulin 3.5 2.5-4.0 gm/dl Albumin/Globulin Ratio 0.8 0.9-2 Microbiology Results 10/23/16 Blood Culture, Received Pending 10/23/16 Blood Culture, Received Pending Diagnostic Radiology CHEST ONE VIEW PORTABLE CLINICAL HISTORY: sob dyspnea COMPARISON STUDY: 09/27/2016 FINDINGS: Mild bilateral interstitial prominence. This is unaltered from the prior exam. Slight chronic blunting left lateral costophrenic angle. No evidence for cardiac enlargement. IMPRESSION: Slight chronic interstitial prominence. Trace pleural fluid left base. Otherwise negative study Impression Assessment and Plan 86-year-old female with a past medical history of COPD, severe aortic stenosis status post TAVR , atrial fibrillation, hypertension, GERD presented to the ER with complaints of shortness of breath. She chronically uses 2 L of oxygen via nasal cannula but but found that today her oxygen tank was low on oxygen and she had trouble breathing. Respiratory distress/ history of COPD - Likely secondary to low oxygen in tank Saturations were over 95 with 3 L of oxygen Chest x-ray: Slight chronic interstitial prominence. Trace pleural fluid left base. Otherwise negative study - Continue oxygen via nasal cannula per protocol - Continue prednisone 10 mg daily and Symbicort 2 puffs twice a day and Spiriva 1 puff every morning - Xopenex and Atrovent as needed Atrial fibrillation with RVR: - Diltiazem 360 mg - Continue Xarelto for anticoagulation - TSH low with upper normal FT4 during last admission, history of taking excess Synthroid for weight loss Severe aortic stenosis : status post TAVR Hypokalemia: Potassium on admission 2.7, repleted Anxiety Lorazepam 0.5 mg every 6 when necessary Hypertension - Lasix 20mg - HCTZ 12.5mg Hypothyroidism - Synthroid 75mcg DVT Prophylaxis -Xarelto Code Status - DNR Resident Physician Supervision Note: Pt seen/examined independently. I discussed the case with the resident and agree with the findings and plan as documented in the note. Any exceptions or clarifications are listed here: 86 y/o F recent AVR presenting with CC progressive SOB - felt this may be due to running out of 02 but also states she feels too weak to go home - denied a productive cough or fevers. OE AAO x 3 S1,2 irreg systolic murmur CTAB NT, ND No CCE P: Obs overnight - breathing treatment and 02 protocol Will need 02 tank refilled prior to DC as she felt improved once receiving 02 in the ER Documented By: Benny Benitez Level of Care Telemetry Resuscitation Status DO NOT RESUSCITATE VTE Prophylaxis VTE Risk Assessment Done? Y/N: Yes Risk Level: Moderate Given or contraindicated: Other Anticoagulation (xarelto) Resident Tracking Resident Involvement: Resident Care Provided Care Provided: Adult Hospital Medicine
[2016-10-24] VITALS (12 sets, daily range): BP systolic 102–161; BP diastolic 62–117; PULSE 90–118; TEMP 35.5–36.9; O2SAT 93–99; Ht 154.9 cm; Wt 51.2 kg
[2016-10-24] MEDS ORDERED: IV FLUIDS COMPLETED PRN (00:45)
[2016-10-24] MEDS: NSS + 20MEQ KCL 1000ML 1,000 ML IV SCH ×2 (01:27→14:25)
[2016-10-24] MEDS ORDERED: NURSING VERBAL MED ORDER ONE ×2 (05:30→20:15)
[2016-10-24] MEDS ORDERED: METOPROLOL TARTRATE 1 MG/ML VIAL IV ONE (05:45)
[2016-10-24] MEDS: LEVOTHYROXINE 75 MCG TAB PO SCH (06:00)
[2016-10-24 06:42] LABS: MEAN CELL VOLUME 89.9 fL (80-100); MEAN CORPUSCULAR HEMOGLOBIN 31.7 pg (25-34); MEAN CORPUSCULAR HGB CONC 35.2 g/dl (32-36); MEAN PLATELET VOLUME 8.9 fL (7.4-10.4); PLATELET COUNT 338 K/uL (130-400); RED BLOOD COUNT 2.78 M/uL (4.2-5.4); WHITE BLOOD COUNT 4.24 K/uL (4.8-10.8)
[2016-10-24 07:11] LABS: BUN/CREATININE RATIO 12.3 (10-20); CREATININE 0.52 mg/dl (0.60-1.20); POTASSIUM 3.9 mmol/L (3.5-5.1)
[2016-10-24] MEDS: HYDROCHLOROTHIAZIDE 25 MG TAB PO SCH (07:13)
[2016-10-24] MEDS: DILTIAZEM HCL 180 MG CAPCR PO SCH (07:13)
[2016-10-24] MEDS: FERROUS SULFATE 325 MG TAB PO SCH ×3 (07:13→16:56)
[2016-10-24] MEDS: ASPIRIN 81 MG ECTAB PO SCH (07:13)
[2016-10-24] MEDS: BUDESONIDE/FORMOTEROL FUMARATE 80/4.5 60 PUFFS/INHALER INH SCH ×2 (07:15→20:47)
[2016-10-24] MEDS: TIOTROPIUM BROMIDE 5 PUFF/90 MCG INH INH SCH (07:20)
[2016-10-24] MEDS ORDERED: SOD PHOSPHATE/SOD BIPHOSPHATE ENEMA 132 ML BTL PR STA (11:46)
[2016-10-24] MEDS ORDERED: PERFLUTREN LIPID MICROSPHERE (DEFINITY) IV ONE (14:26)
--- NOTE | 2016-10-24 14:56 | CONSULTATION REPORT ---
DATE OF CONSULTATION: 10/24/2016 DATE OF CONSULTATION: 10/24/2016. REASON FOR CONSULTATION: Dyspnea, hypoxia, severe COPD. HISTORY OF PRESENT ILLNESS: The patient is an 86-year-old female with quite significant complicated past medical history. The patient presents with severe COPD per pulmonary function testing for which she is followed by Dr. Rucker in the outpatient setting. She also had severe aortic stenosis, status post TAVR at [facility] in [place]. Also with severe pulmonary hypertension and atrial fibrillation. Last hospitalization at [facility] was 09/07/2016 at which time she was treated for hypoxia secondary to multiple factors including her COPD, her severe aortic stenosis and she was found to have severe pulmonary hypertension at that time. It was from this hospital that she was transferred to [facility] in [place] for the aortic valve replacement. Prior to that, she was admitted on 09/07/2016 for COPD exacerbation, at which time she was found to have a left lower lobe pneumonia. On my examination with her, the patient says she does have methane exposure prior to the hospitalization in August. She states there was a vent in her apartment that was not capped correctly and she was having methane in there. She reports that nobody treated her for the methane exposure however in reviewing records I did not find anywhere where this was documented so I am not sure of the validity of it. The patient essentially was transferred to [facility] in [place] to have the aortic valve replacement done. The patient was transferred on 10/03/2016 directly to have the procedure done. Cardiology had followed the patient in house. The patient did have cardiac catheterization on 09/24/2016 of that hospitalization which showed left ventricular hypertrophy which was moderate and concentric, mild aortic regurgitation, mild mitral regurgitation and moderate tricuspid regurgitation as well as severe aortic stenosis with an aortic valve area of 0.43 square cm. In reviewing those patient was made aware of the aortic stenosis prior to this and had been discussed about having aortic valve repair prior to this but had always been resistant and refused this. The patient follows with Dr. Mason as an outpatient in cardiology. The patient states that she was transferred to [facility] to have the procedure done. She states she was there for a short period of time. She does not recall specifically and then she was transferred home. She states that upon her transfer home she was short of breath when she left the hospital and continued to have some shortness of breath. When she got home the shortness of breath worsened. She felt she was not getting enough oxygen. Apparently she checked her oxygen level and was found to be hypoxic and because of worsening shortness of breath presented to [facility] Emergency Room on 10/23/2016 at which point she was admitted for further evaluation and management and further hospitalization. The patient reports to me that she was very short of breath and hypoxic. She did have minimal cough. She had minimal mucus production. She states that she did have a lot of wheezing and was using her COPD medications for this but was not really seeming to help. She had no chest pain. She does not recall if she had palpitations or not. She had no fevers or chills that she is aware of. No night sweats. She is unsure of what her weight was doing. In regards to her GI, the patient does report that she has had some difficulty with swallowing. She states that food has been going down wrong for a while and this seems to be worsening lately. She states that she is having multiple episodes where she choked on her food that went down wrong. She is not sure what is causing this. She does not recall ever being tested for this. I did not find any evidence of a video swallow or barium swallow in the chart. She denies any nausea or vomiting. She denies abdominal pain. She is having some difficulty with constipation. She states that her bowels have not moved since she has been here. They have not moved for several days. She is not having any difficulty voiding although she states that she has not really voided a lot and when she did void her urine was very dark. She had no dysuria with the voiding. She states that she thinks that she had a urinary tract infection when she was at [facility] because she had her on IV antibiotic for a few days prior to leaving and then she had to complete 3-4 days of antibiotics orally as an outpatient. She states that she did do this. She states that they gave her an order to have blood work done and they wanted it faxed back to [facility]. I looked at the script that was given to her. It looks like they wanted a CBC done. This was given to the nursing staff to have them faxed to [facility]. The patient reports that since being in the hospital she does not really feel much better at this time. She is not sure what is going on. She feels that her breathing is not as good as it could be. She is very frustrated at this time. In reviewing the chart the patient did have pulmonary function testing in 2015. She had an FEV1/FVC ratio of 50%. The echo in September of 2016 which was already reviewed she did have chest x-ray on admission which showed trace pleural fluid on the left. She had a lot of work done during this hospitalization which showed white count of 8.7, H&H of 8.5 and 24.4, platelet count of 356,000. INR 1.3, PTT ratio of 1.4, BUN of 8 on admission, creatinine 0.39. Sodium was 129, potassium 2.7, chloride was 90, potassium and sodium were corrected. On 10/24/2016 sodium was 134, potassium was up to 3.9. Blood cultures are pending. No other imaging done. PAST MEDICAL HISTORY: Includes severe COPD, history of severe aortic stenosis, status post TAVR, atrial fibrillation which is chronic, coronary artery disease, pulmonary hypertension, which was only discovered recently during last hospitalization prior to aortic stenosis repair, obstructive sleep apnea, documented by a sleep study in 2009 which showed an AHI of 24.5. The patient is currently not using CPAP. PAST SURGICAL HISTORY: Includes TAVR at [facility] in [place], bilateral cataract surgery, cardiac catheterization multiple, cystoscopy and melanoma removal x2, one from the left knee and one from the back. FAMILY HISTORY: Includes coronary artery disease, cancer and CVA. SOCIAL HISTORY: The patient is a former smoker having smoked for 20 years, she quit in 1969. She was a [id number]-day smoker. No alcohol use. She relocated here from [place] where she lived in [place] approximately 11 years ago. HOME MEDICATIONS: As per hospital H&P. Current medications in the chart. ALLERGIES: CLONIDINE, WHICH CAUSES SHORTNESS OF BREATH; IODINE CONTRAST DYE, UNKNOWN; LATEX, REACTION UNKNOWN; PENICILLINS, REACTION UNKNOWN; SULFA CAUSES SWELLING IN THE MOUTH. REVIEW OF SYSTEMS: As above, otherwise unremarkable. PHYSICAL EXAMINATION: GENERAL: The patient is an 86-year-old female lying in bed, does have oxygen on. Did not appear in any acute distress. When I examined her, patient was initially examined with Dr. Soto. She is alert, interactive and cooperative. She is very hard of hearing, was able to complete sentences without breathlessness. VITAL SIGNS: Temp 35.5, pulse 117, respirations 20, blood pressure is 135/96. Pulse ox 96% on 2 liters. HEAD, EYES, EARS, NOSE, AND THROAT: Normocephalic, atraumatic. Pupils equal, round, reactive to light and accommodation. Extraocular movements are intact. [place] moist gingival and buccal mucosa. The patient does have hearing aide in place. NECK: Thin, supple. No mass. No adenopathy. No bruit. CHEST: The patient has diminished breath sounds bilaterally. He does have some faint expiratory wheezes in the bases. Faint fine rales in the bases. CARDIOVASCULAR: Is irregularly irregular. This patient does have a 2/6 holosystolic murmur. No gallops or rubs noted. ABDOMEN: Bowel sounds are present. Abdomen soft, nontender. No guarding, rigidity or organomegaly. EXTREMITIES: The patient has +2 pedal edema bilaterally. No erythema, no cyanosis or clubbing noted. No tenderness. NEUROLOGIC: Cranial nerves II through XII are intact. No focal deficit noted. Ultrasound done by Dr. Soto shows bilateral B-lines, also shows bilateral small pleural effusions. LABORATORY DATA: Shows white count 4.24, H&H of 8.8 and 32.0, platelet count 338,000. BUN of 6, creatinine 0.52. Sodium 134, potassium 3.9. IMPRESSION: This is an 86-year-old female with hypoxia and shortness of breath which is multifactorial in nature. Part of the patient's breathing difficulties come from her severe COPD for which she is on Symbicort, Spiriva and nebulizer. At this point since she is relatively stable with her breathing I am not going to make any adjustments, although we can adjust up on the nebulizer if needed; however, we will hold off due to the patient's underlying AFib and coronary disease. At this point, I would recommend to repeat a chest x-ray in the a.m. 2. Second factor affecting her breathing I believe is her pulmonary hypertension however I am unsure of what current pressure would be as patient just recently had a TAVR to address her aortic stenosis which I am sure was causing some of the pulmonary hypertension. At this point, would like for the patient to have an echocardiogram to evaluate cardiac function as well as this aortic valve. Right now unable to really quantitate the pulmonary artery pressure. 3. Aortic stenosis, status post transcatheter aortic valve replacement. I am unsure how much of an effect this is having on the patient although I suspect that this is contributing to her shortness of breath. Again will do an echocardiogram to evaluate this further. 4. Congestive heart failure per ultrasound. At this point, I think the patient needs to be diuresed more. She is on strict I&Os at this time. She is getting fluid which I think we need to hold. I also think it may be beneficial for her to have a dose of IV Lasix but will discuss with Dr. Soto. Finally I feel that she does have what sounds like some aspiration, which is potentially aggravating her breathing as well. I would like for her to have a barium swallow. In addition to all of this I think that her untreated obstructive sleep apnea is contributing to both her cardiac and pulmonary problems. Unfortunately, she has been unable to tolerate CPAP mask in the past and for now we will just monitor her. At this point, would like for the patient to have an echocardiogram. I would like for her to have a barium swallow. She is already on strict I's and O's, this needs to continue. I would like to get a chest x-ray in the morning. Will discuss holding the fluids and Lasix with Dr. Soto. Also, the patient reports that her bowels have not moved. In reviewing her chart she is on multiple medications for this so will leave that as it is. At this point, will continue to follow through hospitalization. I have performed thoracic ultrasound personally and there is notable bilateral B-lines and pleural effusions consistent with diastolic insufficiency. I have reviewed this case and agreed upon the current plan. JOSELINE
--- NOTE | 2016-10-24 15:14 | Progress Note ---
Subjective Date of Service: Oct 24, 2016. Subjective Pt evaluation today including: conversation w/ patient Pt feels her breathing is improved. She states that she needs more O2 at home. Pt also expresses concern that she does not know how to increase her O2 and "no one will do it for me unless a doctor orders it". She has not had a bowel movement for 6 days. She states that this was an issue at the hospital in [facility] and some sort of [place] tx helped her at that time. It is unclear if she has been taking her colace TID or not. Denies abd pain. Pt denies fever, chest pain, n/v , LE pain or swelling. ROS as noted above, otherwise neg. Problem List Medical Problems: (1) Acute bronchitis Status: Acute (2) Allergic reaction Status: Acute (3) Dyspnea Status: Chronic (4) Hypokalemia Status: Acute (5) Hyponatremia Status: Acute (6) Hypoxia Status: Acute (7) Hypoxia Status: Acute (8) Hypoxia Status: Chronic (9) Rapid atrial fibrillation Status: Acute (10) Weakness Status: Acute Objective Vital Signs Date Time Temp Pulse Resp B/P (MAP) Pulse Ox O2 Delivery O2 Flow Rate FiO2 10/24/16 12:00 97 Nasal Cannula 2.0 10/24/16 11:08 35.8 90 20 122/81 (95) 98 Nasal Cannula 2.0 10/24/16 08:00 95 Nasal Cannula 2.0 10/24/16 07:14 35.5 117 20 135/96 (109) 96 Nasal Cannula 2.0 10/24/16 06:01 36.5 10/24/16 06:01 126 126/104 10/24/16 04:00 36.9 112 18 138/83 (101) 99 Nasal Cannula 2.0 10/24/16 04:00 99 Nasal Cannula 2.0 10/24/16 00:30 36.7 117 23 124/64 96 Nasal Cannula 2.0 10/24/16 00:11 96 20 120/77 100 10/23/16 22:51 121 24 85/46 97 Nasal Cannula 3.0 10/23/16 22:35 119 28 97 Nasal Cannula 3.0 10/23/16 21:29 112 22 139/85 97 Nasal Cannula 3.0 10/23/16 20:07 98 CPAP 30 10/23/16 20:07 98 CPAP 30 10/23/16 20:05 103 10/23/16 20:04 36.7 117 29 143/92 98 CPAP 30 10/23/16 19:57 98 CPAP 30 10/23/16 19:55 117 100 30 Physical Exam General Appearance: WD/WN, no apparent distress Respiratory/Chest: normal breath sounds, no respiratory distress Cardiovascular: regular rate, rhythm, no edema Abdomen: non tender, soft Extremities: non-tender, no pedal edema Neurologic/Psychiatric: alert, oriented x 3 Skin: normal color, warm/dry Laboratory Results Last 24 Hours Test 10/23/16 21:25 10/24/16 05:50 White Blood Count 8.70 K/uL 4.24 K/uL Red Blood Count 2.74 M/uL 2.78 M/uL Hemoglobin 8.5 g/dL 8.8 g/dL Hematocrit 24.4 % 25.0 % Mean Corpuscular Volume 89.1 fL 89.9 fL Mean Corpuscular Hemoglobin 31.0 pg 31.7 pg Mean Corpuscular Hemoglobin Concent 34.8 g/dl 35.2 g/dl Platelet Count 356 K/uL 338 K/uL Mean Platelet Volume 8.8 fL 8.9 fL Neutrophils (%) (Auto) 91.5 % Lymphocytes (%) (Auto) 3.7 % Monocytes (%) (Auto) 3.8 % Eosinophils (%) (Auto) 0.3 % Basophils (%) (Auto) 0.0 % Neutrophils # (Auto) 7.96 K/uL Lymphocytes # (Auto) 0.32 K/uL Monocytes # (Auto) 0.33 K/uL Eosinophils # (Auto) 0.03 K/uL Basophils # (Auto) 0.00 K/uL RDW Standard Deviation 48.2 fL 50.5 fL RDW Coefficient of Variation 15.2 % 15.6 % Immature Granulocyte % (Auto) 0.7 % Immature Granulocyte # (Auto) 0.06 K/uL Polychromasia 1+ Anisocytosis PRESENT Prothrombin Time 14.0 SECONDS Prothromb Time International Ratio 1.3 Activated Partial Thromboplast Time 36.4 SECONDS Partial Thromboplastin Ratio 1.4 Sodium Level 129 mmol/L 134 mmol/L Potassium Level 2.7 mmol/L 3.9 mmol/L Chloride Level 90 mmol/L 97 mmol/L Carbon Dioxide Level 28 mmol/L 30 mmol/L Anion Gap 11.0 mmol/L 7.0 mmol/L Blood Urea Nitrogen 8 mg/dl 6 mg/dl Creatinine 0.39 mg/dl 0.52 mg/dl Est Creatinine Clear Calc Drug Dose 79.5 ml/min 59.6 ml/min Estimated GFR () 111.0 101.0 Estimated GFR (Non- 95.8 87.1 BUN/Creatinine Ratio 21.3 12.3 Random Glucose 119 mg/dl 175 mg/dl Calcium Level 7.8 mg/dl 8.0 mg/dl Total Bilirubin 0.6 mg/dl Aspartate Amino Transf (AST/SGOT) 19 U/L Alanine Aminotransferase (ALT/SGPT) 17 U/L Alkaline Phosphatase 68 U/L Total Creatine Kinase 35 U/L Creatine Kinase MB 1.3 ng/ml Creatine Kinase MB Ratio 3.7 Troponin I 0.033 ng/ml Total Protein 6.2 gm/dl Albumin 2.7 gm/dl Globulin 3.5 gm/dl Albumin/Globulin Ratio 0.8 Assessment and Plan 86 y/o F with a past medical history of COPD, severe aortic stenosis s/p recent TAVR, atrial fibrillation, hypertension, and GERD presented to the ER with complaints of shortness of breath. Respiratory distress/ history of COPD - Pt has O2 at home for HS only, suggests that she does not know how to adjust her O2 level herself--will need education on d/c Chest x-ray: Slight chronic interstitial prominence. Trace pleural fluid left base - Continue prednisone 10 mg daily and Symbicort 2 puffs twice a day and Spiriva 1 puff every morning - Xopenex and Atrovent as needed Apparently concerns for CHF on bedside US per pulm ECHO pending 2 step prior to d/c Atrial fibrillation with RVR: - Diltiazem 360 mg - Continue Xarelto for anticoagulation - TSH low with upper normal FT4 during last admission, history of taking excess Synthroid for weight loss Severe aortic stenosis : status post TAVR in [facility] recently ECHO pending Concern for swallowing issues Speech eval pending Constipation Fleet enema with colace to [facility] Probiotic Hypokalemia: Potassium on admission 2.7, repleted Anxiety Lorazepam 0.5 mg every 6 when necessary Hypertension - Lasix 20mg - HCTZ 12.5mg Hypothyroidism - Synthroid 75mcg DVT Prophylaxis -Xarelto Code Status - DNR
[2016-10-24] MEDS: LEVALBUTEROL 0.63MG/3 ML NEB INH PRN (15:25)
--- NOTE | 2016-10-24 15:41 | ECHOCARDIOGRAM REPORT ---
*NOTICE TO RECEIVING DEMOCRAT AGENCY This information is strictly Confidential and protected under [place] law. [place] law prohibits you from making any further disclosure of this information unless further disclosure is expressly permitted by the written consent of the person to whom it pertains or is authorized by law. A general authorization for the release of medical or other information is not sufficient for this purpose. Hospital accepts no responsibility if the information is made available to any other person, INCLUDING THE PATIENT. Interpretation Summary * Name: FLAVIA MORENO Study Date: 10/24/2016 01:35 PM BP: 122/81 mmHg * Patient Location: C.2E\S\E211\S\1 HR: 90 * : 1930 (M/d/yyyy) Gender: Female Height: 60 in * Age: 86 yrs Ethnicity: [place] Weight: 113 lb * Ordering Physician: Kailash Aguilar * Performed By: HILARIO ATKINS * * Reason For Study: , S/P TAVR, PULM HTN * BSA: 1.5 m2 * -- Conclusions -- * Left ventricular systolic function is normal. * The right ventricle is borderline dilated. * The right ventricular systolic function is reduced as assessed by tricuspid annular plane systolic excursion (TAPSE) (TAPSE <1.6 cm). * The right atrium is mildly dilated. * There is a bioprosthetic (TAVR) aortic valve. * There is a small collette-valvular leak * Maximum trans-aortic gradient is 31 mmHg which is probably normal for this valve * There is mild mitral regurgitation. * Right ventricular systolic pressure is elevated at 40-50mmHg. * Compared to a study performed one month ago, there has been interim replacement of the aortic valve and the pulmonary pressures are lower. Procedure Details * A complete two-dimensional transthoracic echocardiogram was performed (2D, M-mode, Doppler and color flow Doppler). * The study was technically difficult. * Limited views were obtained. * There were technical limitations due to patient'sinability to cooperate * A contrast injection of Definity was performed to improve assessment of LV function. * Contrast was injected into an intravenous site in the left arm. * One vial of Definity ultrasound contrast was diluted in normal saline to a total volume of 10 ml. A total of '2' ml of solution was administered during imaging. * Lot # [id number] of Definity utilized for procedure. * Expiration date 11/05. * The attending nurse who injected the contrast agent was YANIRA PARSON RN. Left Ventricle * The left ventricle is normal in size. * There is normal left ventricular wall thickness. * Ejection Fraction = 55-60%. * Left ventricular systolic function is normal. Right Ventricle * The right ventricle is borderline dilated. * The right ventricular systolic function is reduced as assessed by tricuspid annular plane systolic excursion (TAPSE) (TAPSE <1.6 cm). Atria * The left atrial size is normal. * The right atrium is mildly dilated. Mitral Valve * The mitral valve leaflets appear thickened, but open well. * There is mild mitral regurgitation. Tricuspid Valve * The tricuspid valve is not well visualized. * There is trace tricuspid regurgitation. * Right ventricular systolic pressure is elevated at 40-50mmHg. Aortic Valve * Maximum trans-aortic gradient is 31 mmHg which is probably normal for this valve * There is a bioprosthetic (TAVR) aortic valve. There is a small collette-valvular leak * Doppler suggests a collette-prosthetic leak of the prosthetic aortic valve. Pericardium/Pleural * There is no pericardial effusion. MMode 2D Measurements and Calculations IVSd 0.86 cm IVSs 1.2 cm LVIDd 4.0 cm LVIDs 2.8 cm LVPWd 1.1 cm LVPWs 1.3 cm IVS/LVPW 0.79 FS 30.6 % EDV(Teich) 71.1 ml ESV(Teich) 29.4 ml EF(Teich) 58.7 % EDV(cubed) 65.3 ml ESV(cubed) 21.8 ml EF(cubed) 66.6 % % IVS thick 36.9 % % LVPW thick 18.1 % LV mass(C)d 122.4 grams LV mass(C)dI 83.6 grams/m\S\2 LV mass(C)s 101.9 grams LV mass(C)sI 69.6 grams/m\S\2 SV(Teich) 41.7 ml SI(Teich) 28.5 ml/m\S\2 SV(cubed) 43.5 ml SI(cubed) 29.7 ml/m\S\2 ACS 0.78 cm asc Aorta Diam 3.3 cm LVAd ap4 23.0 cm\S\2 LVLd ap4 7.6 cm EDV(MOD-sp4) 58.2 ml EDV(sp4-el) 58.7 ml LVAs ap4 11.6 cm\S\2 LVLs ap4 5.1 cm ESV(MOD-sp4) 24.0 ml ESV(sp4-el) 22.5 ml EF(MOD-sp4) 58.8 % EF(sp4-el) 61.7 % LVAd ap2 24.4 cm\S\2 LVLd ap2 6.7 cm EDV(MOD-sp2) 71.5 ml EDV(sp2-el) 75.4 ml LVAs ap2 13.8 cm\S\2 LVLs ap2 5.3 cm ESV(MOD-sp2) 29.1 ml ESV(sp2-el) 30.2 ml EF(MOD-sp2) 59.3 % EF(sp2-el) 59.9 % LVLd %diff -14.03 % EDV(MOD-bp) 67.3 ml LVLs %diff 4.0 % ESV(MOD-bp) 26.6 ml EF(MOD-bp) 60.5 % SV(MOD-sp4) 34.3 ml SI(MOD-sp4) 23.4 ml/m\S\2 SV(MOD-sp2) 42.4 ml SI(MOD-sp2) 29.0 ml/m\S\2 SV(MOD-bp) 40.7 ml SI(MOD-bp) 27.8 ml/m\S\2 SV(sp4-el) 36.2 ml SI(sp4-el) 24.7 ml/m\S\2 SV(sp2-el) 45.2 ml SI(sp2-el) 30.9 ml/m\S\2 Doppler Measurements and Calculations MV E max tomas 148.4 cm/sec MV P1/2t max tomas 141.7 cm/sec MV P1/2t 76.3 msec MVA(P1/2t) 2.9 cm\S\2 MV dec slope 543.8 cm/sec\S\2 MV dec time 0.18 sec Ao V2 max 277.9 cm/sec Ao max PG 31.0 mmHg Ao max PG (full) 23.3 mmHg LV V1 max PG 7.6 mmHg LV V1 max 138.0 cm/sec MR max tomas 514.9 cm/sec MR max PG 106.0 mmHg PA V2 max 86.5 cm/sec PA max PG 3.0 mmHg PI max tomas 211.4 cm/sec PI max PG 17.9 mmHg PI dec slope 188.5 cm/sec\S\2 PI P1/2t 328.5 msec TR max tomas 290.4 cm/sec
[2016-10-24] MEDS: RIVAROXABAN TAB 15 MG TAB PO SCH (16:56)
[2016-10-24] MEDS: LATANOPROST 0.005% OP SOLN 2.5 ML BTL OPB SCH (20:47)
[2016-10-24] MEDS: DOCUSATE SODIUM 100 MG CAP PO PRN (20:47)
[2016-10-24] MEDS: POLYETHYLENE (MIRALAX) 17 GM PACK PO PRN (20:47)
[2016-10-24] MEDS ORDERED: TRAVOPROST Z 0.004% OPH SOLN 2.5 ML BTL OPB SCH (21:00)
[2016-10-25] VITALS (13 sets, daily range): BP systolic 119–168; BP diastolic 73–125; PULSE 82–138; TEMP 35.9–37.1; O2SAT 84–100
[2016-10-25] MEDS: NSS + 20MEQ KCL 1000ML 1,000 ML IV SCH (03:38)
[2016-10-25] MEDS: LEVALBUTEROL 0.63MG/3 ML NEB INH PRN (04:40)
[2016-10-25] MEDS: LEVOTHYROXINE 75 MCG TAB PO SCH (05:36)
--- NOTE | 2016-10-25 07:28 | DIAGNOSTIC IMAGING REPORT ---
CHEST ONE VIEW PORTABLE CLINICAL HISTORY: CHF, Pleural Effusion dyspnea COMPARISON STUDY: 10/23/2016 FINDINGS: Limited study technically due to respiratory and somatic motion. Mild cardia megaly. Prominent pulmonary vasculature. Trace pleural fluid both lateral costophrenic angles. IMPRESSION: Mild congestive heart failure.. Electronically signed by: Fred Metzger M.D. 10/25/2016 7:26 AM Dictated Date/Time: 10/25/2016 7:25 AM
[2016-10-25] MEDS: BUDESONIDE/FORMOTEROL FUMARATE 80/4.5 60 PUFFS/INHALER INH SCH ×2 (07:40→21:10)
[2016-10-25] MEDS: TIOTROPIUM BROMIDE 5 PUFF/90 MCG INH INH SCH (07:41)
[2016-10-25] MEDS: FERROUS SULFATE 325 MG TAB PO SCH ×2 (07:42→16:45)
[2016-10-25] MEDS: SACCHAROMYCES BOUL (FLORASTOR) 250 MG CAP PO SCH (07:42)
[2016-10-25] MEDS: LACTOBACILLUS ACIDOPHILUS (FLORANEX) TAB PO SCH ×3 (07:42→17:03)
[2016-10-25] MEDS: HYDROCHLOROTHIAZIDE 25 MG TAB PO SCH (07:43)
[2016-10-25] MEDS: DILTIAZEM HCL 180 MG CAPCR PO SCH ×4 (07:43→09:43)
[2016-10-25] MEDS: ASPIRIN 81 MG ECTAB PO SCH (07:43)
[2016-10-25] MEDS: DOCUSATE SODIUM 100 MG CAP PO PRN (07:46)
[2016-10-25] MEDS ORDERED: IPRATROPIUM BROMIDE/ALBUTEROL respimat INH INH SCH (09:00)
[2016-10-25] MEDS ORDERED: LORAZEPAM 0.5 MG TAB PO ONE (10:15)
[2016-10-25] MEDS ORDERED: METHYLPREDNISOLONE IV 60 MG in SYRINGE 0 ML IV ONE (12:30)
[2016-10-25] MEDS ORDERED: LEValbuterol HFA 15GM INHALER INH ONE (12:30)
--- NOTE | 2016-10-25 12:54 | PROGRESS NOTE ---
DATE: 10/25/2016 PROBLEM LIST: Includes hypoxia, severe COPD which is oxygen dependent, aortic stenosis, status post TAVR, CHF. SUBJECTIVE: The patient reports that she had a difficult night. She is very frustrated. She states that her breathing and pulse rate have been worse since this morning. Apparently, overnight the patient was using her Combivent more frequently than recommended, was taken away from her this morning, this has her very agitated and upset. Her pulse rate has been in the 130 range, this has been going on since early this a.m. Her last Combivent dose was about 6 this morning. About half an hour prior to going to see her, the patient had been given 0.5 mg of Ativan. Unfortunately, her pulse rate continues to be elevated. When I saw the patient, she reported that her breathing was about the same, she continues to be short of breath. Unfortunately, the Combivent did not really help. She is on Combivent and Spiriva at home, she states that these usually help. They did try and do a nebulizer with her, but she states that she felt worse after the nebulizer. My feeling is that she gets a little bit claustrophobic with having the mask on. She is not really having any cough or congestion. She does have a little bit of wheeze. She does have a little bit of chest heaviness and tightness. She did have the echocardiogram yesterday which did show improved aortic valve flow, decrease in right ventricular pressure, decrease in pulmonary artery pressure, as well as a small leak at the previous aortic valve repair. She denies any chest pain at present. Denies any abdominal pain. Her bowels still have not moved. Denies any difficulty voiding. Denies any swelling in her extremities. OBJECTIVE: GENERAL: The patient is an 86-year-old female lying in bed, appears uncomfortable but does not appear in any acute distress, no respiratory distress. She is alert and oriented x3. She is interactive and cooperative. VITAL SIGNS: Temperature 35.9, pulse 129, respiration 20, blood pressure 129/73, pulse ox is 94-100% on 3 liters. HEENT: Normocephalic, atraumatic. Pupils equal, round and reactive to light and accommodation. Extraocular movements are intact. The patient is hard of hearing. NECK: Supple, thin. No mass. No adenopathy. No bruit. CHEST: She does have some bibasilar rales, few upper airway wheezes on forced exhalation. CARDIOVASCULAR: Tachycardic, irregularly irregular. Difficult to ascertain murmur at this time. ABDOMEN: Bowel sounds are present. Abdomen is soft. No guarding, no rigidity, no organomegaly. There is no tenderness to palpation. EXTREMITIES: The patient has +1 bordering on +2 edema. That is slightly improved from yesterday. DATA: No known lab data. Chest x-ray does show some mild cardiomegaly as well as prominent pulmonary vasculature, mild congestive changes. IMPRESSION: An 86-year-old female with multifactorial shortness of breath and hypoxia. At this time, the patient will have her fluids held. This was discussed with Dr. Seras from hospitalist service. Also will get PRP x3. We will continue to monitor the patient as well. ADDENDUM While I was referring to the chart, I was called back in. The patient was more short of breath. Because of that, she was ordered 60 mg IV Solu-Medrol. Also, because she does not tolerate nebulizer well, I did order and discussed with her prior to this order Xopenex inhaler to be done 2 puffs 4 times a day. We will hold the Combivent, and because pulse rate was getting up into the 140-150 range and she had not had any albuterol for approximately 5 hours, we will put a consult in for cardiology for the AFib with RVR. Currently, she is on Cardizem 360 mg daily. We will continue to follow through hospitalization. Patient reviewed and plan agreed with. JOSELINE
[2016-10-25] MEDS ORDERED: METOPROLOL TARTRATE 1 MG/ML VIAL IV STA (14:19)
[2016-10-25] MEDS ORDERED: METOPROLOL TARTRATE 1 MG/ML VIAL ONE (14:20)
[2016-10-25] MEDS ORDERED: NURSING VERBAL MED ORDER ONE (14:45)
[2016-10-25] MEDS ORDERED: FUROSEMIDE INJ 20 MG in SYRINGE 0 ML IV ONE (15:00)
[2016-10-25] MEDS: RIVAROXABAN TAB 15 MG TAB PO SCH (17:03)
[2016-10-25] MEDS: LEValbuterol HFA 15GM INHALER INH SCH ×2 (17:03→21:10)
--- NOTE | 2016-10-25 18:01 | Progress Note ---
Subjective Date of Service: Oct 25, 2016. Subjective Pt evaluation today including: conversation w/ patient, conversation w/ specialty development consultant Called to pt's bedside for acute respiratory distress. Pt sats in the mid-90s, however pt called nursing to have RT called for worsening of her SOB. HR and BP elevated as well. Pt denies chest pain, abd pain "I don't have any pain, I just can't breathe". She has been put on a face mask and is taking shallow breaths. She ate without issue earlier. Pt denies fever, n/v/c/d, LE pain or swelling. ROS as noted above, otherwise neg. Nursing reports that pt had been self administering her combivent multiple times an hour overnight without informing them. Pt was frustrated that her combivent had to be removed from the room. Speech therapy reports to me that just prior to pt coming down for VFSS, pt had an episode of stool incontinence. This study will be on hold until tomorrow due to this. Pt declined fleet enema yesterday, but has been taking colace as she was taking outpt. s/p lasix, pt now asleep and comfortable down to 4L NC, HR 100 BP 119/74, 94% on 4L. Problem List Medical Problems: (1) Acute bronchitis Status: Acute (2) Allergic reaction Status: Acute (3) Dyspnea Status: Chronic (4) Hypokalemia Status: Acute (5) Hyponatremia Status: Acute (6) Hypoxia Status: Acute (7) Hypoxia Status: Acute (8) Hypoxia Status: Chronic (9) Rapid atrial fibrillation Status: Acute (10) Weakness Status: Acute Objective Vital Signs Date Time Temp Pulse Resp B/P (MAP) Pulse Ox O2 Delivery O2 Flow Rate FiO2 10/25/16 15:15 92 Nasal Cannula 5.0 Humidified Oxygen 10/25/16 15:05 37.1 103 25 135/109 (118) 93 Nasal Cannula 3.0 10/25/16 14:51 82 32 153/97 (115) 96 Non-Rebreather 12.0 10/25/16 14:40 86 Nasal Cannula 6.0 Humidified Oxygen 10/25/16 14:31 99 145/88 (107) 10/25/16 14:27 133 158/98 10/25/16 13:48 138 168/114 (132) 91 3.0 158/98 (118) 10/25/16 12:00 Nasal Cannula 3.0 10/25/16 11:15 35.9 129 20 159/125 (136) 94 Nasal Cannula 3.0 10/25/16 08:00 Nasal Cannula 3.0 10/25/16 07:47 36.0 113 20 129/73 (91) 100 Nasal Cannula 3.0 10/25/16 04:40 124 28 95 Nasal Cannula 2.0 10/25/16 04:00 Nasal Cannula 2.0 10/25/16 03:25 36.4 114 24 157/98 (117) 95 Nasal Cannula 2.0 10/25/16 00:28 100 24 95 Nasal Cannula 2.0 10/25/16 00:00 Nasal Cannula 2.0 10/24/16 23:10 36.0 108 24 161/117 (132) 94 Nasal Cannula 2.0 10/24/16 20:00 98 Nasal Cannula 2.0 10/24/16 19:53 36.4 118 24 102/62 (75) 93 Nasal Cannula 2.0 Physical Exam General Appearance: + moderate distress, + thin Respiratory/Chest: + respiratory distress, + decreased breath sounds, + crackles, + pertinent finding (no wheezing) Cardiovascular: no edema, + tachycardia Abdomen: non tender, soft Extremities: non-tender, no pedal edema Neurologic/Psychiatric: alert, oriented x 3 Skin: normal color, warm/dry Assessment and Plan 86 y/o F with a past medical history of COPD, severe aortic stenosis s/p recent TAVR, atrial fibrillation, hypertension, and GERD presented to the ER with complaints of shortness of breath. Respiratory distress/ history of COPD - Pt has O2 at home for HS only, suggests that she does not know how to adjust her O2 level herself--will need education on d/c Chest x-ray on admission with trace pleural fluid left base, repeat with CHF-- monitoring on home HCTZ dose appears to have not been effective and pt now in acute CHF exacerbation Improved s/p 20mg IV lasix - Continue prednisone 10 mg daily and Symbicort 2 puffs twice a day and Spiriva 1 puff every morning - Xopenex and Atrovent as needed ECHO noted 2 step prior to d/c Atrial fibrillation with RVR: - Diltiazem 360 mg - Continue Xarelto for anticoagulation - TSH low with upper normal FT4 during last admission, history of taking excess Synthroid for weight loss Severe aortic stenosis : status post TAVR in [facility] recently ECHO noted Concern for swallowing issues Speech eval pending VFSS Constipation colace to [facility], pt declined fleet enema on 10/24 Probiotic Hypokalemia: Potassium on admission 2.7, repleted Anxiety Lorazepam 0.5 mg every 6 when necessary Hypertension - Lasix 20mg - HCTZ 12.5mg Hypothyroidism - Synthroid 75mcg DVT Prophylaxis -Xarelto Code Status - DNR
[2016-10-25] MEDS: LATANOPROST 0.005% OP SOLN 2.5 ML BTL OPB SCH (21:10)
[2016-10-26] VITALS (9 sets, daily range): BP systolic 121–143; BP diastolic 61–111; PULSE 82–106; TEMP 35.9–36.8; O2SAT 88–96
[2016-10-26] MEDS: LEVOTHYROXINE 75 MCG TAB PO SCH (06:13)
--- NOTE | 2016-10-26 07:43 | Clinical Documentation Query ---
ANITA Nettles : CLINICAL DOCUMENTATION QUERY Patient noted to have recieved intravenous Lasix on 10/25. Chest radiograph demonstrated mild cardiomegaly as well as prominent pulmonary vasculature, mild congestive changes. IVF were held, Lasix administered, and echocardiogram performed. Patient was hypertensive in a rapid atrial fibrillation at that time. After diuresis, heart rate was modestly improved and BP was improved. Echo read to include normal LV systolic function. A small collette-valvular leak was observed. Please clarify as clinically appropriate the specific type and acuity of CHF in your patient. Thank you. In your clinical opinion is this patient being managed for: (x ) Acute diastolic congestive heart failure ( ) Other explanation of clinical findings (Please Explain) ( ) Unable to determine (Please Define) ( ) Need to Discuss ( ) Not Agree The medical record reflects the following clinical findings, treatment, and risk factors. Clinical Indicators: As above Treatment: IV Lasix, discontinuation of IVF, echo Risk Factors: Age, hypertension, pHTN, afib Please clarify and document your clinical opinion in the progress notes and discharge summary. Terms such as "probable", "suspected", "likely", "questionable", "possible", or "still to be ruled out" are acceptable. IF IN AGREEMENT, YOU MUST DOCUMENT ABOVE DIAGNOSTIC STATEMENT IN DAILY PROGRESS NOTES AND DISCHARGE SUMMARY. This document is not part of the patient's record. Thank You, Aaron Dorantes RN [phone]
[2016-10-26 07:52] LABS: BUN/CREATININE RATIO 29.6 (10-20); CALCIUM 8.1 mg/dl (8.5-10.1); CREATININE 0.47 mg/dl (0.60-1.20); POTASSIUM 3.9 mmol/L (3.5-5.1)
[2016-10-26] MEDS: BUDESONIDE/FORMOTEROL FUMARATE 80/4.5 60 PUFFS/INHALER INH SCH ×2 (08:15→21:12)
[2016-10-26] MEDS: LEValbuterol HFA 15GM INHALER INH SCH ×2 (08:17→08:25)
[2016-10-26] MEDS: TIOTROPIUM BROMIDE 5 PUFF/90 MCG INH INH SCH ×2 (08:18→08:25)
[2016-10-26] MEDS: ASPIRIN 81 MG ECTAB PO SCH (08:19)
[2016-10-26] MEDS: FERROUS SULFATE 325 MG TAB PO SCH ×2 (08:19→17:27)
[2016-10-26] MEDS: LACTOBACILLUS ACIDOPHILUS (FLORANEX) TAB PO SCH ×3 (08:19→17:27)
[2016-10-26] MEDS: HYDROCHLOROTHIAZIDE 25 MG TAB PO SCH (08:20)
[2016-10-26] MEDS: SACCHAROMYCES BOUL (FLORASTOR) 250 MG CAP PO SCH (08:21)
[2016-10-26] MEDS: DILTIAZEM HCL 180 MG CAPCR PO SCH (08:36)
[2016-10-26] MEDS ORDERED: DILTIAZEM HCL 240 MG CAPCR PO ONE (09:24)
[2016-10-26] MEDS ORDERED: FUROSEMIDE INJ 10 MG in SYRINGE 0 ML IV ONE (10:30)
--- NOTE | 2016-10-26 11:40 | PROGRESS NOTE ---
DATE: 10/26/2016 DATE: 10/26/2016. PROBLEM LIST: Includes: 1. Hypoxia. 2. Severe chronic obstructive pulmonary disease which is oxygen dependent. 3. Aortic stenosis, status post transcatheter aortic valve replacement. 4. Congestive heart failure. SUBJECTIVE: The patient is doing much better today. She received a dose of Lasix yesterday. She received Solu-Medrol yesterday. Her breathing overall is doing better. She feels overall better today. She was seen by cardiology who adjusted her Cardizem and give her a dose of digoxin and she is okay with this as well. I did speak with John Garvin who also recommended a transfusion of 1 unit of packed red blood cells. This came up in conversation and patient does not want the blood transfusion. She is concerned about infection. She denies any other problems. No chest pain. No chest pressure. No abdominal pain. Overall, she feels much better. She felt like she slept well last night. She states that she did try the Xopenex, which I had recommended yesterday. She does not feel that works as well as Combivent and is asking if she can have Combivent back. Therefore, Combivent will be redone with her. She is not having any GI problems. No nausea, no vomiting. Apparently her bowels still have not moved. She is not having any difficulty with swelling in her legs. As per nursing, she has been a little bit better mentally. She has been much better physically today. Of note, also the patient did ask about physical therapy. She thinks she would like to start physical therapy so she can get up moving around. This will help her get home quicker. OBJECTIVE: GENERAL: The patient is an 86-year-old female lying in bed in no acute distress today. She does appear much better today than yesterday. No respiratory distress. She is alert and oriented x3. Mood is good. Affect is good. She is interactive and cooperative. VITAL SIGNS: Temperature is 35.9, pulse 106, respirations 20, blood pressure is 131/78, pulse ox is 92-94% on 3 liters. HEAD, EYES, EARS, NOSE, AND THROAT: Normocephalic, atraumatic. Pupils equal, round and reactive to light and accommodation. Extraocular movements are intact. [place] moist gingival and buccal mucosa. NECK: Thin, no mass. No adenopathy. No bruit. CHEST: Diminished breath sounds improved from yesterday. I do not really appreciate any wheeze. No rale or rhonchi today. CARDIOVASCULAR: Regular rate and rhythm. She is tachycardic. There are no murmurs, gallops or rubs appreciated. ABDOMEN: Bowel sounds are present. Abdomen soft, nontender. No guarding, rigidity or organomegaly. EXTREMITIES: No erythema or edema. NEUROLOGIC: Cranial nerves II through XII are intact. No focal deficit noted. LABORATORY DATA: Shows a BUN of 14, creatinine 0.47. She had 1170 mL diuresed yesterday. She has negative 250 mL balance today to this point. Her weight is down 1 kilogram from yesterday, it had jumped up 2.2 kilograms from October 24 to October 25. No new imaging data. IMPRESSION: The patient is an 86-year-old female who has multiple medical problems admitted for shortness of breath and hypoxia, which is multifactorial. Her severe COPD, which is oxygen dependent, is contributing to this. Her pulmonary hypertension which is secondary to her severe aortic stenosis is also contributing to this. The patient did have a TAVR which was done less than a month ago. She did have an echocardiogram which shows decreased right ventricular pressure and overall good results following the TAVR. There is a small leak present. At this point, the patient is slightly improved compared to yesterday. She is much calmer. Her breathing is improved. She is not as tachycardic. She was diuresed and I think this is helpful as well. At this point, I think what we can do moving forward would like to switch her back to her Combivent and she is to keep this at her bedside. The patient is more comfortable with this. She feels that this is more helpful for her than the Xopenex. I suspect that she has been using her Combivent multiple times a day for years and at this point we will monitor use over the next 24 hours and then see how she is using it. The patient also asked for physical therapy to get her up and move around, so she can hopefully transition home sooner. I think this is a good idea. We will put the order in for PT, OT. I agree with the diuresis. I think this has made a significant improvement for her. At this point, will continue to follow the patient. Patient's and case reviewed and plan agreed upon. MTDD
--- NOTE | 2016-10-26 12:59 | DIAGNOSTIC IMAGING REPORT ---
VIDEO SWALLOW HISTORY: Shortness of breath. Choking episodes. Possible aspiration. TECHNIQUE: Video fluoroscopic evaluation of swallowing was performed in the AP and lateral projections by the speech pathology staff. The patient is fed nectar-thick and thin liquid barium, a barium coated wafer, and barium pudding. FLUOROSCOPY TIME: 3.2 minutes. COMPARISON STUDY: None. FINDINGS: There is normal hyoid excursion and epiglottic deflection. No significant penetration or aspiration identified. Swallowing function is within normal limits. There is mild esophageal dysmotility. There is mild vallecular pooling. IMPRESSION: 1. No aspiration identified. 2. Please see the speech pathologist report for detailed findings and recommendations. Electronically signed by: Stephen Cobos M.D. 10/26/2016 12:58 PM Dictated Date/Time: 10/26/2016 12:57 PM
[2016-10-26] MEDS: IPRATROPIUM BROMIDE/ALBUTEROL respimat INH INH SCH ×3 (13:45→21:11)
[2016-10-26] MEDS ORDERED: FUROSEMIDE INJ 10 MG in SYRINGE 0 ML IV SCH (14:00)
--- NOTE | 2016-10-26 15:56 | Progress Note ---
Subjective Date of Service: Oct 26, 2016. Subjective Pt evaluation today including: conversation w/ patient, chart review, conversation w/ [employer] consultant Pt feels her breathing is much better today. No SOB, although has not been OOB yet. Tolerating PO without issue. Still no bowel movement. Pt states that she did not refuse enema, but that "someone came in to do it while I was eating and never came back because they didn't want to do it". She informs me that she would like to have an enema now. Pt states that she did not take extra doses of her combivent overnight the morning of 10/25. She states that she was never given her combivent until overnight last night until she asked for it. She states that the documentation suggesting that she did is false. Pt also does not remember me coming into her room during her respiratory distress yesterday afternoon. She was given ativan 0.5mg PO x1 around 10:15a on 10/25, but is suggesting that this is why she was feeling well enough to sleep last night. I suggested to her that it may have been due to the lasix she was given late afternoon yesterday for the crackles in her lungs, but she is quite firm in her belief that without the AM ativan dose, she would not have been able to sleep last night. Pt has been eating without issue today. No chest pain. Pt denies fever, abd pain, n/v, LE pain or swelling. Nursing informs me that shortly after this discussion, pt refused enema. She is also now refusing the blood transfusion that cardiology discussed with and ordered for her. Problem List Medical Problems: (1) Acute bronchitis Status: Acute (2) Allergic reaction Status: Acute (3) Dyspnea Status: Chronic (4) Hypokalemia Status: Acute (5) Hyponatremia Status: Acute (6) Hypoxia Status: Acute (7) Hypoxia Status: Acute (8) Hypoxia Status: Chronic (9) Rapid atrial fibrillation Status: Acute (10) Weakness Status: Acute Review of Systems All Other Systems: Reviewed and Negative Objective Vital Signs Date Time Temp Pulse Resp B/P (MAP) Pulse Ox O2 Delivery O2 Flow Rate FiO2 10/26/16 12:00 Nasal Cannula 3.0 10/26/16 10:56 36.1 106 20 135/61 (85) 95 Nasal Cannula 3.0 10/26/16 08:00 Nasal Cannula 3.0 10/26/16 07:39 35.9 106 20 135/111 (119) 92 Nasal Cannula 3.0 10/26/16 04:00 Nasal Cannula 4.0 94 10/26/16 03:12 36.4 95 22 131/78 (95) 94 Nasal Cannula 3.0 10/26/16 00:00 Nasal Cannula 4.0 93 10/26/16 00:00 36.8 103 22 121/77 (92) 93 Nasal Cannula 3.0 10/25/16 20:00 Nasal Cannula 4.0 10/25/16 19:28 36.6 104 28 136/104 (115) 84 Nasal Cannula 3.0 10/25/16 17:30 100 22 119/74 (89) 94 Nasal Cannula 4.0 10/25/16 16:00 Nasal Cannula 4.0 Physical Exam General Appearance: WD/WN, no apparent distress Eyes: normal inspection ENT: hearing grossly normal (with amplifier in place) Neck: supple Respiratory/Chest: no respiratory distress, + crackles (much improved) Cardiovascular: regular rate, rhythm, no edema Abdomen: non tender, soft Extremities: non-tender, no pedal edema Neurologic/Psychiatric: alert, oriented x 3 Skin: normal color, warm/dry Laboratory Results Last 24 Hours Test 10/26/16 06:49 Sodium Level 137 mmol/L Potassium Level 3.9 mmol/L Chloride Level 97 mmol/L Carbon Dioxide Level 34 mmol/L Anion Gap 6.0 mmol/L Blood Urea Nitrogen 14 mg/dl Creatinine 0.47 mg/dl Est Creatinine Clear Calc Drug Dose 66.0 ml/min Estimated GFR () 104.4 Estimated GFR (Non- 90.1 BUN/Creatinine Ratio 29.6 Random Glucose 117 mg/dl Calcium Level 8.1 mg/dl Assessment and Plan 86 y/o F with a past medical history of COPD, severe aortic stenosis s/p recent TAVR, atrial fibrillation, hypertension, and GERD presented to the ER with complaints of shortness of breath. Respiratory distress/ history of COPD - Pt has O2 at home for HS only, suggests that she does not know how to adjust her O2 level herself--will need education on d/c Chest x-ray on admission with trace pleural fluid left base, repeat with CHF- Improved clinically s/p 20mg IV lasix 10/25, will give 10mg IV x1 today and monitor - Continue prednisone 10 mg daily and Symbicort 2 puffs twice a day and Spiriva 1 puff every morning - Xopenex and Atrovent as needed ECHO noted with likely systolic CHF 2 step prior to d/c If transfusion occurs, will need 10mg IV lasix s/p transfusion Atrial fibrillation with RVR: - Diltiazem 360 mg - Continue Xarelto for anticoagulation - TSH low with upper normal FT4 during last admission, history of taking excess Synthroid for weight loss Severe aortic stenosis : status post TAVR in [facility] recently, small leak noted on ECHO, cardiology feels this is WNL ECHO noted Concern for swallowing issues Speech eval pending VFSS Constipation colace to [facility], pt declined fleet enema on 10/24 Probiotic Hypokalemia: Potassium on admission 2.7, repleted Anxiety Lorazepam 0.5 mg every 6 when necessary Hypertension - HCTZ 12.5mg Hypothyroidism - Synthroid 75mcg DVT Prophylaxis -Xarelto Code Status - DNR
--- NOTE | 2016-10-26 16:05 | CARDIOLOGY CONSULTATION REPORT ---
DATE OF CONSULTATION: 10/26/2016 REASON FOR CONSULTATION: 1. Chronic AFib with RVR. 2. History of Critical s/p Bioprosthetic TAVR 10/18/2016, [facility]. HISTORY OF PRESENT ILLNESS: Mrs. Lane is an 86-year-old white female with a history of Chronic Atrial Fibrillation (currently with RVR), history of Severe/Critical s/p TAVR on 10/18/2016 [facility], moderate Concentric LVH with Diastolic Dysfunction, mild MR, mild to moderate TR, Severe Pulmonary Hypertension, Severe COPD, and a history of Diastolic CHF who presented acutely to [facility] Emergency Room on 10/23/2016 complaining of shortness of breath and respiratory distress over the preceding 2 days. As mentioned, the patient underwent a TAVR on 10/18/2016, and this may have been complicated by a skin infection, so she stayed for a couple of extra days. She had no other complications, but was on supplemental oxygen therapy throughout her hospitalization. Upon discharge to home, her supplemental O2 was discontinued, and the patient noticed gradual onset shortness of breath, dyspnea on exertion, and decreased exertional tolerance. On admission, she was noted to be in Atrial Fibrillation (which she is in chronically), but had an elevated ventricular response rate, she was acutely anemic with a Hgb of 8.5 g/dL, and she had wheezes on physical examination consistent with bronchospasm. On chest x-ray she was noted to have slight chronic interstitial prominence with trace left pleural effusion, but otherwise negative study. The patient did undergo an Echocardiogram on 10/24/2016, which revealed the followin. Normal LV size and systolic function. 2. LVEF of 55%-60%, no regional wall motion abnormalities. 3. RV is borderline dilated with reduced RV systolic function. 4. Mild right atrial dilatation. 5. Mild MR 6. Trace TR 7. Appropriately functioning bioprosthetic TAVR. 8. Aortic valve with a small perivalvular back leak. 9. RV systolic pressure elevated at 40-50 mmHg. Since being hospitalized, she has been getting less short of breath. She does remain tachycardic, is intermittently hypoxic, and is still anemic. The patient offers no other complaints. She denies any chest pain, heaviness, tightness, pressure, or discomfort. No neck, jaw, back, or arm pain. She still has a sensation of dyspnea with any movement or activity, but can complete multiple full sentences without stopping to take a breath. She denies any orthopnea or PND. No sensation of tachy palpitations. She denies any syncope or near syncope. MEDICATIONS: 1. Diltiazem CD 360 mg daily. 2. Lasix 10 mg IV. 3. Xopenex inhaler 2 puffs q.i.d. 4. Florastor capsules 250 mg daily. 5. Floranex 1 tablet t.i.d. 6. Xalatan ophthalmic solution 1 drop at bedtime in both eyes. 7. Xarelto 15 mg daily. 8. Aspirin 81 mg a day. 9. Symbicort 80/4.5 two puffs b.i.d. 10. Spiriva Handihaler 1 puff each morning (she refused it this morning). 11. Hydrochlorothiazide 12.5 mg daily. 12. Feosol 325 mg b.i.d. 13. Levothyroxine 75 mcg daily. 14. Tylenol p.r.n. 15. Milk of magnesia p.r.n. 16. Zofran p.r.n. 17. MiraLax powder 17 g daily as needed. 18. Colace 100 mg t.i.d. 19. Xopenex nebulizers q. 6 hours p.r.n. for shortness of breath. 20. Sublingual nitroglycerin p.r.n. ALLERGIES: 1. CLONIDINE. 2. IODINATED CONTRAST AGENTS. 3. LATEX. 4. PENICILLIN. 5. SULFA DRUGS. PAST MEDICAL HISTORY: 1. Chronic atrial fibrillation (typically rate controlled and chronically anticoagulated). 2. Critical aortic stenosis status post bioprosthetic TAVR on 10/18/2016 at [facility]. 3. Severe COPD. 4. Severe pulmonary hypertension. 5. Chronic kidney disease. 6. History of anxiety. 7. Nonobstructive/Nonocclusive CAD on Cardiac Catheterization on 09/29/2016: - LMCA -- No disease. - LAD -- 30% ostial stenosis, 0%-10% mid vessel stenosis. - D1 -- Normal vessel. - LCX -- 30% ostial stenosis, 10%-20% mid vessel stenosis. - OM1 -- 30% ostial stenosis. - OM2, OM3 -- Normal. - RCA -- Proximal 0%-10% stenosis, 10%-20% mid vessel stenosis, 0%-10% distal vessel stenosis. - PDA, PLA1, PLA2 -- All normal. - Acute marginal -- Normal vessel. - LV gram was not performed. SOCIAL HISTORY: The patient is single, lives alone in the area. She has a son in [place]. Other family in [facility]. She is a former smoker. FAMILY HISTORY: Noncontributory. PHYSICAL EXAMINATION: VITAL SIGNS: Temperature is 36.4 degrees Celsius, pulse is 100-110 and irregularly irregular, respiratory rate 20 and unlabored, blood pressure is 136/110 left arm sitting, SpO2 is 92% on 3 liters oxygen via nasal cannula. I's and O's minus approximately 667 mL total. Body weight 52.6 kg. GENERAL: Chronically ill appearing white female in no acute distress. HEENT: Head is atraumatic, normocephalic. EOMs intact. Sclerae are anicteric. Face is symmetric. No perioral cyanosis. Mucous membranes moist. NECK: Jugular venous pressure is approximately 8-9 cm sitting upright with wide respiratory variation. Carotid upstrokes +2 bilateral without bruits. CHEST AND LUNGS: With diminished breath sounds throughout all lung luis, no obvious wheezes, rales or rhonchi at this time. CARDIOVASCULAR: S1 and S2 are irregularly irregular, tachycardic, with a grade 1/6 systolic murmur noted at the left sternal border. Aortic valve closure sound is accentuated. No diastolic murmurs appreciated. No obvious gallops or rubs. PMI is not displaced. No lifts, heaves, or thrills. No abdominal, aortic or renal bruits. ABDOMINAL EXAMINATION: Bowel sounds present. No masses, organomegaly, or tenderness. EXTREMITIES: Without clubbing or cyanosis. Trace posterior ankle edema currently. Intact posterior tibial and radial pulses bilaterally. NEUROLOGIC EXAMINATION: The patient is awake, alert, and interactive. Affect is unchanged, answers questions in her own unique way. Speech is clear. No focal neurologic deficits. LABORATORY DATA: White blood cell count is 4.24. Hemoglobin is 8.8 g/dL, hematocrit is 25.0%, platelet count is 338,000. Chemistries show a sodium of 137 mmol/L, potassium 3.9 millimoles per liter, BUN 14 mg/dL, creatinine 0.47 mg/dL. Random glucose is 117 mg/dL. LFTs are unremarkable. Total CK is 35 with a CK-MB of 1.3 ng/mL. Troponin I is 0.033 ng/mL on admission. Current telemetry monitoring reveals atrial fibrillation with a ventricular response rate of 100-110 beats per minute. Chest x-ray on 10/25/2016 shows mild cardiomegaly, prominent pulmonary vasculature, trace pleural fluid in both lateral costophrenic angles. Echocardiogram on 10/24/2016 -- as described above. Cardiac Catheterization on 09/29/2016 -- as described above. ASSESSMENT: 1. Chronic Atrial Fibrillation with RVR --- rapid ventricular response is likely multifactorial including postoperative hyperadrenergic state, marked anemia, chronic obstructive pulmonary disease exacerbation, etc. 2. History of Critical s/p Bioprosthetic TAVR on 10/18/2016. 3. Echocardiogram shows normal LV Systolic Function, and the expected gradients across her Bioprosthetic TAVR. 4. Pulmonary Hypertension in the presence of Severe COPD. 5. Mildly reduced right ventricular systolic function. 6. Diagnosis as mentioned above. PLAN: 1. At this time would recommend aggressive treatment of underlying lung disease and COPD. 2. Recommend transfusion x1 unit of packed red blood cells to maintain her Hgb above 10 g/dL. 3. Recommend switching from Diltiazem CD 360 mg once a day to Cardizem CD 240 mg b.i.d. (increase in total daily dose). 4. Continue Xarelto 15 mg daily indefinitely. 5. Add IV Digoxin 125 mcg daily, which will slow AV conduction, and may even contribute to a slight increase in RV contractility. 6. Monitor daily I&O's, body weights. 7. Continue IV Lasix, low dose for the time being. 8. We will continue to follow closely. We will also follow her as an outpatient upon discharge. 9. Consent form signed for transfusion. JOSELINE
[2016-10-26] MEDS: DIGOXIN IV 125 MCG in SYRINGE 9.5 ML IV SCH (17:27)
[2016-10-26] MEDS: RIVAROXABAN TAB 15 MG TAB PO SCH (17:28)
[2016-10-26] MEDS: DILTIAZEM HCL 240 MG CAPCR PO SCH (21:12)
[2016-10-26] MEDS: LATANOPROST 0.005% OP SOLN 2.5 ML BTL OPB SCH (21:13)
[2016-10-27 03:39] VITALS: BP 123/59; PULSE 68; TEMP 36.2; O2SAT 90
[2016-10-27 05:21] LABS: HEMATOCRIT 25.9 % (37-47); MEAN CELL VOLUME 93.5 fL (80-100); MEAN PLATELET VOLUME 8.4 fL (7.4-10.4); PLATELET COUNT 354 K/uL (130-400); RED BLOOD COUNT 2.77 M/uL (4.2-5.4); WHITE BLOOD COUNT 9.59 K/uL (4.8-10.8)
[2016-10-27 05:43] LABS: BUN/CREATININE RATIO 35.4 (10-20); CALCIUM 7.9 mg/dl (8.5-10.1); CREATININE 0.61 mg/dl (0.60-1.20); POTASSIUM 3.8 mmol/L (3.5-5.1)
[2016-10-27] MEDS: LEVOTHYROXINE 75 MCG TAB PO SCH (06:04)
[2016-10-27 06:57] VITALS: BP 135/69; PULSE 66; TEMP 36.4; O2SAT 97
[2016-10-27] MEDS: IPRATROPIUM BROMIDE/ALBUTEROL respimat INH INH SCH ×4 (08:32→20:02)
[2016-10-27] MEDS: BUDESONIDE/FORMOTEROL FUMARATE 80/4.5 60 PUFFS/INHALER INH SCH ×2 (08:32→20:02)
[2016-10-27] MEDS: HYDROCHLOROTHIAZIDE 25 MG TAB PO SCH (08:35)
[2016-10-27] MEDS: LACTOBACILLUS ACIDOPHILUS (FLORANEX) TAB PO SCH ×3 (08:35→16:55)
[2016-10-27] MEDS: SACCHAROMYCES BOUL (FLORASTOR) 250 MG CAP PO SCH (08:35)
[2016-10-27] MEDS: ASPIRIN 81 MG ECTAB PO SCH (08:36)
[2016-10-27] MEDS: FERROUS SULFATE 325 MG TAB PO SCH ×2 (08:36→16:55)
[2016-10-27] MEDS: DILTIAZEM HCL 240 MG CAPCR PO SCH ×2 (08:36→20:03)
[2016-10-27] MEDS: TIOTROPIUM BROMIDE 5 PUFF/90 MCG INH INH SCH (09:00)
[2016-10-27] MEDS ORDERED: SOD PHOSPHATE/SOD BIPHOSPHATE ENEMA 132 ML BTL ONE (09:38)
[2016-10-27] MEDS ORDERED: NURSING VERBAL MED ORDER ONE (09:45)
[2016-10-27 11:12] VITALS: BP 137/72; PULSE 77; TEMP 36.9; O2SAT 90
[2016-10-27] MEDS ORDERED: METHYLPREDNISOLONE IV 40 MG in SYRINGE 0 ML IV ONE (14:40)
[2016-10-27] MEDS: DIGOXIN IV 125 MCG in SYRINGE 9.5 ML IV SCH (15:30)
[2016-10-27 16:14] VITALS: BP 135/85; PULSE 85; TEMP 36.4; O2SAT 95
--- NOTE | 2016-10-27 16:41 | Pulmonology Progress Note ---
Pulmonary Progress Note Date of Service Oct 27, 2016. Attending Dr. Soto Subjective Patient continues to note mild dyspnea at rest and notable dyspnea with exertion Objective The patient had a long conversation she did not use accessory muscles but was mildly tachypnea. Vital signs: Patient stable on 3-4 L nasal cannula Respiratory: Expiratory wheezing with bilateral crackles Thoracic ultrasound: Showed B-lines approximately the lower one third of the chest, bilateral pleural effusions have decreased from previous exam Cardiac: Regular rate and rhythm distant heart sounds Medications #1 methylprednisolone 40 mg twice a day #2 Combivent one puff 4 times a day #3 Xarelto 50 mg daily #4 aspirin 81 mg daily #5 Symbicort 80/4.52 puffs twice a day #6 Spiriva one puff daily Laboratories WBC count: 10 K Hemoglobin: 8.3 Hematocrit: 26 Platelet count: 350 4K PT: 14 INR: 1.3 APTT: 36.4 Urine: 22 Creatinine: 0.61 Radiology Video swallow: No aspiration identified Pulmonary function studies performed 10/28/2015 Spirometry: FEV1 44% severe obstructive ventilatory disease, no clinically significant reversibility Lung volumes: Signs of hyperinflation with a residual volume of 144% DLCO: 28% with DLCO/VA ratio: 71% Echo cardiogram 10/24/2016 LV: EF= 55-60%, RV: mild dilation, TAPSE <1.6cm RA: mildly dilated MV: Mild regurgitation RVSP: 40-50mmHg Assessment & Plan 86-year-old female admitted with hypoxemia: #1 Hypoxemia: The patient's hypoxemia is most likely combination of severe COPD , pulmonary hypertension group 2 and 3, mild anemia and physical decompensation. This time I believe the best way to optimize this patient's respiratory status is to continue current oxygen support. I will decrease her IV steroids to once daily by mouth and continue her current inhaler regimen. Also suggest we continue aggressive diuresis as thoracic ultrasound shows intra- parenchymal fluid along with continued bilateral pleural effusions most likely secondary to diastolic dysfunction and malnutrition. I also believe the patient has underlying pulmonary hypertension group 2 and 3 which is secondary to cardiac and pulmonary etiologies and treatment is based off treating the underlying organs dysfunction. Also good physical therapy with pulmonary rehabilitation as an outpatient will be warranted. Data Medications: Current Inpatient Medications Medications (Trade) Dose Ordered Sig/Yared Route Start Time Stop Time Status Last Admin Dose Admin Potassium Chloride/Sodium Chloride 1,000 ml @ 75 mls/hr [id number] IV 10/24/16 01:00 11/23/16 00:59 Future Hold 10/25/16 03:38 75 MLS/HR Acetaminophen (Tylenol Tab) 650 mg Q4H PRN PO 10/23/16 23:45 11/22/16 23:44 Magnesium Hydroxide (Milk Of Magnesia Susp) 30 ml Q12H PRN PO 10/23/16 23:45 11/22/16 23:44 Ondansetron HCl (Zofran Inj) 4 mg Q6H PRN IV 10/23/16 23:45 11/22/16 23:44 10/25/16 13:11 4 MG Polyethylene (Miralax Powder Packet) 17 gm DAILY PRN PO 10/23/16 23:45 11/22/16 23:44 10/24/16 20:47 17 GM Aspirin (Ecotrin Tab) 81 mg DAILY PO 10/24/16 09:00 11/23/16 08:59 10/27/16 08:36 81 MG Budesonide/ Formoterol Fumarate (Symbicort 80/ 4.5 Inh) 2 puffs BID INH 10/24/16 09:00 11/23/16 08:59 10/27/16 08:32 2 PUFFS Docusate Sodium (coLACE CAP) 100 mg TID PRN PO 10/23/16 23:45 11/22/16 23:44 10/25/16 07:46 100 MG Latanoprost (Xalatan Oph Soln) 1 drops HS OPB 10/24/16 21:00 11/23/16 20:59 10/26/16 21:13 1 DROPS Levalbuterol (Xopenex 0.63 Mg/ 3 Ml Neb) 0.63 mg Q6H PRN INH 10/23/16 23:45 11/22/16 23:44 Future hold 10/25/16 04:40 0.63 MG Levothyroxine Sodium (Synthroid Tab) 75 mcg DAILYBB PO 10/24/16 06:00 11/23/16 05:59 10/27/16 06:04 75 MCG Nitroglycerin (Nitrostat Tab) 0.4 mg UD PRN SL 10/23/16 23:45 11/22/16 23:44 Rivaroxaban (Xarelto Tab) 15 mg Q24H PO 10/24/16 17:00 11/23/16 16:59 10/26/16 17:28 15 MG Tiotropium [place] (Spiriva Handihaler Inhaler) 1 puff QAM INH 10/24/16 09:00 11/23/16 08:59 Ferrous Sulfate (Feosol Tab) 325 mg BIDM PO 10/24/16 07:30 11/23/16 07:29 10/27/16 08:36 325 MG Miscellaneous (Iv Fluids Completed) 1 ea PRN PRN N/A 10/24/16 00:45 10/24/17 00:44 Hydrochlorothiazide (Hydrochlorothiazide Tab) 12.5 mg DAILY PO 10/24/16 09:00 11/23/16 08:59 10/27/16 08:35 12.5 MG Saccharomyces Boulardii (Florastor Cap) 250 mg DAILY PO 10/25/16 09:00 11/24/16 08:59 10/27/16 08:35 250 MG Lactobacillus Acidophilus (Floranex Tab) 1 tab TIDM PO 10/25/16 07:30 11/24/16 07:29 10/27/16 12:19 1 TAB Albuterol/ Ipratropium (Combivent Respimat Inh) 1 puffs QID INH 10/25/16 09:00 11/24/16 08:59 Future Hold 10/25/16 07:44 1 PUFFS Diltiazem HCl (Cardizem Cd Cap) 240 mg BID PO 10/26/16 21:00 11/25/16 20:59 10/27/16 08:36 240 MG Digoxin 125 mcg/ Syringe 10 ml @ 2 mls/min DAILY@16 IV 10/26/16 16:00 11/25/16 15:59 10/27/16 15:30 2 MLS/MIN Albuterol/ Ipratropium (Combivent Respimat Inh) 1 puffs QID INH 10/26/16 13:00 11/25/16 12:59 10/27/16 12:19 1 PUFFS Methylprednisolone Sodium Succinate 40 mg/Syringe 0.64 ml @ 1.5 mls/min BID IV 10/27/16 21:00 11/26/16 20:59 I & O: 24-Hour Column 10/28/16 08:00 Intake Total 300 ml Output Total 250 ml Balance 50 ml Vital Signs: Date Time Temp Pulse Resp B/P (MAP) Pulse Ox O2 Delivery O2 Flow Rate FiO2 10/27/16 16:14 36.4 85 22 135/85 (102) 95 Nasal Cannula 6.0 Humidified Oxygen 10/27/16 15:30 94 10/27/16 12:00 Nasal Cannula 6.0 Humidified Oxygen 10/27/16 11:12 36.9 77 26 137/72 (93) 90 Nasal Cannula 6.0 10/27/16 08:00 Nasal Cannula 3.0 10/27/16 06:57 36.4 66 20 135/69 (91) 97 Nasal Cannula 3.0 10/27/16 04:00 Nasal Cannula 3.0 10/27/16 03:39 36.2 68 22 123/59 (80) 90 Nasal Cannula 3.0 10/26/16 23:59 Nasal Cannula 3.0 10/26/16 23:24 35.9 95 22 126/82 (97) 96 Nasal Cannula 3.0 10/26/16 22:57 Nasal Cannula 3.0 10/26/16 20:15 133/75 (94) 10/26/16 18:46 36.5 96 25 140/106 (117) 88 Nasal Cannula 3.0 10/26/16 17:27 88 Laboratory Results: Last 24 Hours Test 10/27/16 05:12 White Blood Count 9.59 K/uL Red Blood Count 2.77 M/uL Hemoglobin 8.3 g/dL Hematocrit 25.9 % Mean Corpuscular Volume 93.5 fL Mean Corpuscular Hemoglobin 30.0 pg Mean Corpuscular Hemoglobin Concent 32.0 g/dl RDW Standard Deviation 54.7 fL RDW Coefficient of Variation 16.2 % Platelet Count 354 K/uL Mean Platelet Volume 8.4 fL Sodium Level 137 mmol/L Potassium Level 3.8 mmol/L Chloride Level 96 mmol/L Carbon Dioxide Level 36 mmol/L Anion Gap 5.0 mmol/L Blood Urea Nitrogen 22 mg/dl Creatinine 0.61 mg/dl Est Creatinine Clear Calc Drug Dose 50.8 ml/min Estimated GFR () 95.8 Estimated GFR (Non- 82.7 BUN/Creatinine Ratio 35.4 Random Glucose 80 mg/dl Calcium Level 7.9 mg/dl
[2016-10-27] MEDS: RIVAROXABAN TAB 15 MG TAB PO SCH (16:55)
--- NOTE | 2016-10-27 17:40 | PROGRESS NOTE ---
DATE: 10/27/2016 PROBLEM LIST: Includes: 1. Hypoxia. 2. Severe chronic obstructive pulmonary disease which is oxygen dependent. 3. Aortic stenosis, status post transcatheter aortic valve replacement. 4. Congestive heart failure. SUBJECTIVE: The patient reports that she has been getting a little bit more short of breath today with ambulation, therapy is working with her today and her sats have been dipping down when she is up and moving around. Yesterday her sats were maintaining. She states that today she feels pretty well. She is just getting out of breath with doing anything. She is not having any increased cough or congestion, no increased wheezing. No increased chest heaviness or tightness. It does appear that we are finally getting her inhalers straightened out and that she is doing Symbicort twice a day and Combivent in between. I had a long discussion with her regarding the nature of her breathing being multifactorial and patient voiced understanding. Goal right now is to improve quality of life. I did mention to her that may be some mucus is moving around, possibly some mucus plugging and recommended that she do her incentive spirometer and do some deep breathing techniques including deep breath in and coughing it out. She is agreeable to this. She denies any other concerns or problems at this time. She states that she was able to finally have a bowel movement, she received 2 enemas today. OBJECTIVE: GENERAL: The patient is an 86-year-old female sitting at bedside. She is alert and oriented x3. Mood is good. Affect is good. VITAL SIGNS: Temp 36.4, pulse 85, respirations 22, blood pressure is 135/85, pulse ox 95% on 6 liters. HEENT: Normocephalic, atraumatic. Pupils equal, round and reactive to light and accommodation. Extraocular movements are intact. [place] moist gingival and buccal mucosa. NECK: Thin, no mass. No adenopathy. No bruit. CHEST: Diminished breath sounds bilaterally. Faint expiratory wheeze today. No rale or rhonchi noted. CARDIOVASCULAR: Irregularly irregular. No gallops or rub. She does have a 1/6 systolic murmur. ABDOMEN: Bowel sounds are positive, slightly hyperactive, soft, nontender. No guarding, rigidity or organomegaly. EXTREMITIES: No erythema or edema. LABORATORY DATA: Shows white count of 9000, H&H of 8.3 and 25.9, platelet count 354,000. BUN 22, creatinine 0.61. She diuresed 110 mL yesterday, 275 today, her weight is down another 1.5 kilos. The patient did have a video swallow yesterday, which showed some esophageal dysmotility. IMPRESSION: This is an 86-year-old female with shortness of breath which is multifactorial. The patient has severe chronic obstructive pulmonary disease, which is oxygen dependent, I think this is part of the factors contributing to this. I think that her moving around today has caused her to desaturate somewhat, also questions there are maybe some mucus or inflammation as well. Get her on some Solu-Medrol, if she does well with this and I will transition her to oral prednisone and do a slow taper starting at 40 mg and tapering by 5 mg every 2 days. 2. Severe aortic stenosis, status post transcatheter aortic valve replacement. The patient is slowly improving. Cardiology was involved and patient is doing well from their perspective. 3. Tachycardia, atrial fibrillation with rapid ventricular response. The patient's medications were adjusted. 4. Pulmonary hypertension secondary to patient's aortic stenosis, pressures were down on last echo. I suspect they will continue to slowly decline somewhat. At this point, will put the patient on Solu-Medrol 40 mg b.i.d. She is to continue her Symbicort and Combivent and continue oxygenation. Did instruct her to use her incentive spirometer multiple times a day, also instructed her on some deep breathing and coughing exercises to clear secretions. She is agreeable to this. She is to continue working with PT and OT. We will continue to follow. Patient reviewed and plan agreed with. JOSELINE
--- NOTE | 2016-10-27 17:43 | Progress Note ---
Subjective Date of Service: Oct 27, 2016. Subjective Pt evaluation today including: conversation w/ patient, conversation w/ software developer consultant Pt is having some SOB at times this afternoon. Tolerating PO. No chest pain. Pt was agreeable to fleet today and has had two bowel movements. She feels much better after this. Is concerned that she is not getting enough probiotics. Pt denies fever, abd pain, n/v/c/d, LE pain or swelling. Problem List Medical Problems: (1) Acute bronchitis Status: Acute (2) Allergic reaction Status: Acute (3) Dyspnea Status: Chronic (4) Hypokalemia Status: Acute (5) Hyponatremia Status: Acute (6) Hypoxia Status: Acute (7) Hypoxia Status: Acute (8) Hypoxia Status: Chronic (9) Rapid atrial fibrillation Status: Acute (10) Weakness Status: Acute Review of Systems All Other Systems: Reviewed and Negative Objective Vital Signs Date Time Temp Pulse Resp B/P (MAP) Pulse Ox O2 Delivery O2 Flow Rate FiO2 10/27/16 16:14 36.4 85 22 135/85 (102) 95 Nasal Cannula 6.0 Humidified Oxygen 10/27/16 15:30 94 10/27/16 12:00 Nasal Cannula 6.0 Humidified Oxygen 10/27/16 11:12 36.9 77 26 137/72 (93) 90 Nasal Cannula 6.0 10/27/16 08:00 Nasal Cannula 3.0 10/27/16 06:57 36.4 66 20 135/69 (91) 97 Nasal Cannula 3.0 10/27/16 04:00 Nasal Cannula 3.0 10/27/16 03:39 36.2 68 22 123/59 (80) 90 Nasal Cannula 3.0 10/26/16 23:59 Nasal Cannula 3.0 10/26/16 23:24 35.9 95 22 126/82 (97) 96 Nasal Cannula 3.0 10/26/16 22:57 Nasal Cannula 3.0 10/26/16 20:15 133/75 (94) 10/26/16 18:46 36.5 96 25 140/106 (117) 88 Nasal Cannula 3.0 Physical Exam Comments: General Appearance: WD/WN, no apparent distress Eyes: normal inspection ENT: hearing grossly normal (with amplifier in place) Neck: supple Respiratory/Chest: no respiratory distress, + crackles (much improved but present) Cardiovascular: regular rate, rhythm, no edema Abdomen: non tender, soft Extremities: non-tender, no pedal edema Neurologic/Psychiatric: alert, oriented x 3 Skin: normal color, warm/dry Laboratory Results Last 24 Hours Test 10/27/16 05:12 White Blood Count 9.59 K/uL Red Blood Count 2.77 M/uL Hemoglobin 8.3 g/dL Hematocrit 25.9 % Mean Corpuscular Volume 93.5 fL Mean Corpuscular Hemoglobin 30.0 pg Mean Corpuscular Hemoglobin Concent 32.0 g/dl RDW Standard Deviation 54.7 fL RDW Coefficient of Variation 16.2 % Platelet Count 354 K/uL Mean Platelet Volume 8.4 fL Sodium Level 137 mmol/L Potassium Level 3.8 mmol/L Chloride Level 96 mmol/L Carbon Dioxide Level 36 mmol/L Anion Gap 5.0 mmol/L Blood Urea Nitrogen 22 mg/dl Creatinine 0.61 mg/dl Est Creatinine Clear Calc Drug Dose 50.8 ml/min Estimated GFR () 95.8 Estimated GFR (Non- 82.7 BUN/Creatinine Ratio 35.4 Random Glucose 80 mg/dl Calcium Level 7.9 mg/dl Assessment and Plan 86 y/o F with a past medical history of COPD, severe aortic stenosis s/p recent TAVR, atrial fibrillation, hypertension, and GERD presented to the ER with complaints of shortness of breath. Respiratory distress/ history of COPD - Pt has O2 at home for HS only, suggests that she does not know how to adjust her O2 level herself--will need education on d/c Chest x-ray on admission with trace pleural fluid left base, repeat with CHF- Improved clinically s/p 20mg IV lasix 10/25, had needed daily IV 10mg lasix for mild crackles and SOB. Will start 10mg QD and monitor - Continue prednisone 10 mg daily and Symbicort 2 puffs twice a day and Spiriva 1 puff every morning - Xopenex and Atrovent as needed ECHO noted with likely systolic CHF 2 step prior to d/c If transfusion occurs, will need 10mg IV lasix s/p transfusion Atrial fibrillation with RVR: - Diltiazem 360 mg - Continue Xarelto for anticoagulation - TSH low with upper normal FT4 during last admission, history of taking excess Synthroid for weight loss Severe aortic stenosis : [facility], small leak noted on ECHO, cardiology feels this is WNL ECHO noted Cards had discussed transfusion, however pt later declined Concern for swallowing issues Speech eval noted with mild deficit, diet adjusted Constipation colace to [facility], pt declined fleet enema on 10/24 Probiotic Hypokalemia: Potassium on admission 2.7, repleted Anxiety Lorazepam 0.5 mg every 6 when necessary Hypertension - HCTZ 12.5mg Hypothyroidism - Synthroid 75mcg DVT Prophylaxis -Xarelto Code Status - DNR Pt would like appt with Dr. Marion--office is closed now. CM should make this appt when able.
[2016-10-27] MEDS ORDERED: FUROSEMIDE INJ 10 MG in SYRINGE 0 ML IV SCH (18:00)
--- NOTE | 2016-10-27 19:08 | PROGRESS NOTE ---
DATE: 10/27/2016 SUBJECTIVE: The patient was seen by me earlier this afternoon in the telemetry unit room. She states she still had dyspnea with minimal activity. She also has orthopnea. She denies any chest pain. No palpitations. No lightheadedness or syncope. No abdominal pain, or nausea. Her appetite is decreased. No complaints of any leg pain. CURRENT MEDICATIONS: Include prednisone , diltiazem 240 mg p.o. b.i.d., digoxin 125 mcg IV daily, Combivent one puff q.i.d., Florastor capsule 250 mg daily, Floranex tablet one t.i.d., Xalatan eyedrops one drop at bedtime, Xarelto 15 mg every 24 hours, aspirin 81 mg daily, Symbicort two puffs b.i.d., Spiriva one puff daily a.m., HCTZ 12.5 mg daily, ferrous sulfate 325 mg b.i.d., levothyroxine 75 mcg daily. She received intravenous furosemide yesterday. ALLERGIES AND ADVERSE DRUG REACTIONS: CLONIDINE, IODINATED CONTRAST AGENTS, PENICILLINS, SULFA ANTIBIOTICS. REVIEW OF SYSTEMS: Review of monitor history by me shows atrial fibrillation. Her ventricular rate has improved from yesterday. At the time of my exam, her ventricular rate was in the 90s. Negative fluid balance on October 25 was 1117 mL, yesterday 110 mL. PHYSICAL EXAMINATION: VITAL SIGNS: Today's weight 51.1 kg. Weight on October 25 was 53.7 kg. Yesterday was 52.6 kg. Vital signs late this morning revealed axillary temperature is 36.9, pulse 77, blood pressure 137/72, pulse oximetry 90% with 6 liters from a nasal cannula oxygen. GENERAL: She is sitting up in her bed. No distress. NECK: No jugular venous distention noted. LUNGS: Decreased breath sounds at both bases. Expiratory wheezes in the right lower lung field. HEART: Irregularly irregular. 1/6 systolic murmur at second right intercostal space. 1/6 systolic murmur left lower sternal border and apex. No diastolic murmur. No S3 or rub. ABDOMEN: Soft. Nontender. No palpable masses or organomegaly. EXTREMITIES: No calf tenderness. No pedal edema. LABORATORY DATA: Today with WBC 9.59, hemoglobin 8.3, hematocrit 25.9, platelet count 354. Metabolic profile this morning was sodium 137, potassium 3.8, chloride 96, carbon dioxide 36, BUN 22, creatinine 0.61, random glucose 80. Troponin on October 23 was 0.033. ASSESSMENT: 1. Chronic atrial fibrillation. Ventricular response, improved today compared to yesterday. Increased in ventricular response is not unexpected in light of her anemia and exacerbation of her underlying lung disease. She could also have a component of diastolic congestive heart failure. In the past, she has had diastolic heart failure because of her left ventricular hypertrophy and because of increased ventricular rates with atrial fibrillation. The increased ventricular rate as well as the atrial fibrillation itself would worsen her diastolic dysfunction. In the past, her dyspnea has improved with better control of her ventricular rates. 2. Status post TAVR for severe underlying aortic stenosis. Performed at [facility] in [facility] on 10/18/2016. The valve was functioning properly on exam and echo this admission. 3. Severe underlying pulmonary disease. 4. Prerenal azotemia today. This is likely secondary to intravascular volume depletion from the diuresis. 5. Left ventricular diastolic dysfunction. 6. Anemia. The patient refused blood transfusion yesterday. The anemia would certainly contribute to her dyspnea as well at the increase in her ventricular response to the atrial fibrillation. RECOMMENDATIONS: 1. If the patient ultimately agrees, would transfuse her with at least 1 unit of packed red blood cells. 2. Watch for over diuresis. Monitor renal function closely. Repeat labs tomorrow. 3. Continued treatment for her underlying lung disease. 4. Continue current dose of diltiazem. If her ventricular response improves with the increased diltiazem dose and treatment of her underlying lung disease, would then consider discontinuing digoxin therapy. Certainly, digoxin therapy can be of increased risk in elderly patients with renal dysfunction. MTDD
[2016-10-27 19:15] VITALS: BP 143/91; PULSE 88; TEMP 36.4; O2SAT 95
[2016-10-27] MEDS: LATANOPROST 0.005% OP SOLN 2.5 ML BTL OPB SCH (20:03)
[2016-10-27] MEDS ORDERED: METHYLPREDNISOLONE IV 40 MG in SYRINGE 0 ML IV SCH (21:00)
[2016-10-27] MEDS ORDERED: BUDESONIDE/FORMOTEROL FUMARATE 160/4.5 60 PUFFS/INHALER INH SCH (21:00)
[2016-10-27 23:45] VITALS: BP 146/82; PULSE 62; TEMP 36; O2SAT 98
[2016-10-28] VITALS (9 sets, daily range): BP systolic 97–141; BP diastolic 49–81; PULSE 75–86; TEMP 35.7–36.5; O2SAT 93–98
[2016-10-28] MEDS: LEVOTHYROXINE 75 MCG TAB PO SCH (05:33)
[2016-10-28] MEDS: FERROUS SULFATE 325 MG TAB PO SCH ×2 (08:01→17:27)
[2016-10-28] MEDS: HYDROCHLOROTHIAZIDE 25 MG TAB PO SCH (08:01)
[2016-10-28] MEDS: LACTOBACILLUS ACIDOPHILUS (FLORANEX) TAB PO SCH ×3 (08:04→17:27)
[2016-10-28] MEDS: IPRATROPIUM BROMIDE/ALBUTEROL respimat INH INH SCH ×4 (08:06→20:15)
[2016-10-28] MEDS: BUDESONIDE/FORMOTEROL FUMARATE 80/4.5 60 PUFFS/INHALER INH SCH ×2 (08:06→20:15)
[2016-10-28] MEDS: TIOTROPIUM BROMIDE 5 PUFF/90 MCG INH INH SCH (08:07)
[2016-10-28] MEDS: ASPIRIN 81 MG ECTAB PO SCH (08:08)
[2016-10-28] MEDS: DILTIAZEM HCL 240 MG CAPCR PO SCH ×2 (08:08→20:19)
[2016-10-28] MEDS: SACCHAROMYCES BOUL (FLORASTOR) 250 MG CAP PO SCH (08:09)
[2016-10-28] MEDS: FUROSEMIDE 20 MG TAB PO SCH (08:10)
[2016-10-28] MEDS: DOCUSATE SODIUM 100 MG CAP PO PRN ×2 (08:14→17:30)
[2016-10-28 12:13] LABS: HEMATOCRIT 30.3 % (37-47)
[2016-10-28 12:39] LABS: BUN/CREATININE RATIO 22.3 (10-20); CALCIUM 8.3 mg/dl (8.5-10.1); CREATININE 0.78 mg/dl (0.60-1.20); POTASSIUM 3.7 mmol/L (3.5-5.1)
--- NOTE | 2016-10-28 13:01 | PROGRESS NOTE ---
DATE: 10/28/2016 HISTORY OF PRESENT ILLNESS: I entered the room to see the patient. She refused to speak with me. She bluntly told me, "I do not want to see you. I do not want you touching me." Thus, no history or exam was obtained from the patient today by me. The nursing staff reports that she has had no cardiac complaints today. I have reviewed her monitor. She is in atrial fibrillation with controlled ventricular response. Her ventricular rate has improved over the past few days. PHYSICAL EXAMINATION: VITAL SIGNS: Early this afternoon with a pulse of 86, blood pressure 136/66 and pulse oximetry 93%. As stated above, no exam was performed today. Hemoglobin today was 10.0 and hematocrit 30.3. GENERAL: Of note, the patient did not receive any blood transfusions. She has refused transfusions. Metabolic profile today is pending. It was just obtained at 12:05 p.m. ASSESSMENT: 1. Chronic atrial fibrillation. Good control of ventricular response on current dose of diltiazem. 2. Status post transcatheter aortic valve replacement for severe underlying aortic stenosis; this was performed on 10/18/2016 in [facility]. The valve is properly functioning on echocardiogram on this admission. 3. Severe underlying pulmonary disease. 4. Left ventricular diastolic dysfunction. 5. Anemia. Her hemoglobin has increased despite no blood transfusion. This could theoretically represent intravascular volume depletion. Await BUN and creatinine from today. RECOMMENDATIONS: 1. From a cardiac standpoint, the patient does not need to be in a monitored bed. 2. Discontinue digoxin. Her ventricular response has improved. The use of digoxin long-term in her could be of increased risk. 3. If her ventricular rate increases off of the digoxin, would add in low-dose beta ginny therapy. The low-dose beta ginny therapy would also help her left ventricular diastolic dysfunction. At this time will sign off case as patient refuses to see me and as her cardiac condition is stable. Please recontact [facility] cardiology if any recurrent or new cardiac issues arise. Thank you. JOSELINE
--- NOTE | 2016-10-28 14:32 | Progress Note ---
Subjective Date of Service: Oct 28, 2016. Subjective Pt evaluation today including: conversation w/ patient, physical exam, chart review, lab review, review of studies, review of inpatient medication list Pain: no pain reported Voiding: no voiding problems pt is seen and examined by me. Pt states her breathing improved after lasix, but she is not sure if she want to take this medication on regular bases. Pt is very anxious. Problem List Medical Problems: (1) Acute bronchitis Status: Acute (2) Allergic reaction Status: Acute (3) Dyspnea Status: Chronic (4) Hypokalemia Status: Acute (5) Hyponatremia Status: Acute (6) Hypoxia Status: Acute (7) Hypoxia Status: Acute (8) Hypoxia Status: Chronic (9) Rapid atrial fibrillation Status: Acute (10) Weakness Status: Acute Review of Systems All Other Systems: Reviewed and Negative Medications Medications (Trade) Dose Ordered Sig/Yared Route Start Time Stop Time Status Last Admin Dose Admin Methylprednisolone Sodium Succinate 40 mg/Syringe 0.64 ml @ 1.5 mls/min TODAY@1440 ONCE IV 10/27/16 14:40 10/27/16 16:47 DC 10/27/16 15:28 1.5 MLS/MIN Prednisone (PredniSONE TAB) 20 mg BID PO 10/28/16 09:00 11/27/16 08:59 10/28/16 08:10 20 MG Furosemide 10 mg/ Syringe 1 ml @ 4 mls/min 1800 IV 10/27/16 18:00 10/27/16 19:00 DC 10/27/16 18:08 4 MLS/MIN Furosemide (Lasix Tab) 10 mg QAM PO 10/28/16 09:00 11/27/16 08:59 10/28/16 08:10 10 MG Objective Vital Signs Date Time Temp Pulse Resp B/P (MAP) Pulse Ox O2 Delivery O2 Flow Rate FiO2 10/28/16 13:57 36.4 75 18 97/49 (65) 94 3.0 10/28/16 12:12 36.5 86 17 136/66 (89) 93 Nasal Cannula 4.0 10/28/16 12:00 97 Nasal Cannula 4.0 Humidified Oxygen 10/28/16 08:00 98 Nasal Cannula 4.0 Humidified Oxygen 10/28/16 07:45 36.1 83 20 124/77 (93) 98 Nasal Cannula 4.0 10/28/16 04:00 Nasal Cannula 4.0 Humidified Oxygen 10/28/16 03:50 36.3 77 18 141/81 (101) 98 Nasal Cannula 4.0 10/28/16 00:00 Nasal Cannula 4.0 Humidified Oxygen 10/27/16 23:45 36.0 62 16 146/82 (103) 98 Nasal Cannula 4.0 10/27/16 20:00 Nasal Cannula 4.0 Humidified Oxygen 10/27/16 19:15 36.4 88 22 143/91 (108) 95 Nasal Cannula 6.0 Humidified Oxygen 10/27/16 16:14 36.4 85 22 135/85 (102) 95 Nasal Cannula 6.0 Humidified Oxygen 10/27/16 16:00 Nasal Cannula 6.0 Humidified Oxygen 10/27/16 15:30 94 Physical Exam Comments: General Appearance: WD/WN, no apparent distress Eyes: normal inspection ENT: hearing grossly normal (with amplifier in place) Neck: supple Respiratory/Chest: no respiratory distress, Cardiovascular: regular rate, rhythm, no edema Abdomen: non tender, soft Extremities: non-tender, no pedal edema Neurologic/Psychiatric: alert, oriented x 3 Skin: normal color, warm/dry Laboratory Results Last 24 Hours Test 10/28/16 12:05 Hemoglobin 10.0 g/dL Hematocrit 30.3 % Sodium Level 134 mmol/L Potassium Level 3.7 mmol/L Chloride Level 91 mmol/L Carbon Dioxide Level 32 mmol/L Anion Gap 11.0 mmol/L Blood Urea Nitrogen 17 mg/dl Creatinine 0.78 mg/dl Est Creatinine Clear Calc Drug Dose 39.8 ml/min Estimated GFR () 80.3 Estimated GFR (Non- 69.3 BUN/Creatinine Ratio 22.3 Random Glucose 150 mg/dl Calcium Level 8.3 mg/dl Assessment and Plan 86 y/o F with a past medical history of COPD, severe aortic stenosis s/p recent TAVR, atrial fibrillation, hypertension, and GERD presented to the ER with complaints of shortness of breath. Respiratory distress/ history of COPD - Pt has O2 at home for HS only, suggests that she does not know how to adjust her O2 level herself--will need education on d/c Chest x-ray on admission with trace pleural fluid left base, repeat with CHF- Improved clinically s/p 20mg IV lasix 10/25, had needed daily IV 10mg lasix for mild crackles and SOB. Will start 10mg QD and monitor, negative 950 - Continue prednisone 10 mg daily and Symbicort 2 puffs twice a day and Spiriva 1 puff every morning - Xopenex and Atrovent as needed - ECHO noted with likely systolic CHF - Refused transfusion again today. Atrial fibrillation with RVR: - Diltiazem 360 mg. - Discontinued digoxin per Dr Mack. - Continue Xarelto for anticoagulation - TSH low with upper normal FT4 during last admission, history of taking excess Synthroid for weight loss Severe aortic stenosis : status post TAVR in [facility] recently, small leak noted on ECHO, cardiology feels this is WNL ECHO noted Cards had discussed transfusion, however pt later declined Concern for swallowing issues Speech eval noted with mild deficit, diet adjusted Constipation colace to [facility], pt declined fleet enema on 10/24 Probiotic Hypokalemia: Potassium on admission 2.7, repleted Anxiety Lorazepam 0.5 mg every 6 when necessary Hypertension - HCTZ 12.5mg Hypothyroidism - Synthroid 75mcg DVT Prophylaxis -Xarelto Code Status - DNR Continued [facility] stay due to: other Discharge planning: home with home health
[2016-10-28] MEDS: RIVAROXABAN TAB 15 MG TAB PO SCH (17:27)
[2016-10-28] MEDS: LATANOPROST 0.005% OP SOLN 2.5 ML BTL OPB SCH (20:16)
[2016-10-28] MEDS: POLYETHYLENE (MIRALAX) 17 GM PACK PO PRN (20:22)
[2016-10-29] MEDS: LEVOTHYROXINE 75 MCG TAB PO SCH (05:54)
[2016-10-29 07:21] VITALS: BP 159/83; PULSE 75; TEMP 36.5; O2SAT 93
[2016-10-29 08:00] VITALS: O2SAT 96
[2016-10-29] MEDS: ASPIRIN 81 MG ECTAB PO SCH (08:31)
[2016-10-29] MEDS: FERROUS SULFATE 325 MG TAB PO SCH (08:31)
[2016-10-29] MEDS: LACTOBACILLUS ACIDOPHILUS (FLORANEX) TAB PO SCH ×2 (08:31→11:44)
[2016-10-29] MEDS: HYDROCHLOROTHIAZIDE 25 MG TAB PO SCH (08:31)
[2016-10-29] MEDS: FUROSEMIDE 20 MG TAB PO SCH (08:32)
[2016-10-29] MEDS: SACCHAROMYCES BOUL (FLORASTOR) 250 MG CAP PO SCH (08:32)
[2016-10-29] MEDS: DILTIAZEM HCL 240 MG CAPCR PO SCH (08:32)
[2016-10-29] MEDS: BUDESONIDE/FORMOTEROL FUMARATE 80/4.5 60 PUFFS/INHALER INH SCH (08:33)
[2016-10-29] MEDS: IPRATROPIUM BROMIDE/ALBUTEROL respimat INH INH SCH ×2 (08:33→13:10)
[2016-10-29] MEDS: TIOTROPIUM BROMIDE 5 PUFF/90 MCG INH INH SCH ×2 (08:33→08:41)
[2016-10-29 11:52] VITALS: BP 159/83; PULSE 75; TEMP 36.5; O2SAT 96
--- NOTE | 2016-10-29 15:08 | Discharge Instructions ---
Discharge Instructions Date of Service Oct 29, 2016. Admission Reason for Admission: Respiratory Distress Discharge Discharge Diagnosis / Problem: Resp distress secondary to diastolic heart failure Discharge Goals Goal(s): Decrease discomfort, Improve function, Increase independence, Improve disease control, Improve nutritional status, Diagnostic testing, Prevent Disease Progression Activity Recommendations Activity Limitations: as noted below Lifting Limitations: gradually increase as tolerated Exercise/Sports Limitations: until after follow-up appointment May Resume Sexual Activity: when tolerated Shower/Bathe: no limitations Driving or Machine Use: does not drive . Instructions / Follow-Up Instructions / Follow-Up Use 2L Oxygen via nasal cannula at bed time Current Hospital Diet Patient's current hospital diet: AHA Diet (Heart Healthy) Discharge Diet Recommended Diet: AHA Diet (Heart Healthy) Procedures Procedures Performed: none Pending Studies Studies pending at discharge: no Medical Emergencies . Who to Call and When: Medical Emergencies: If at any time you feel your situation is an emergency, please call 911 immediately. . Non-Emergent Contact Non-Emergency issues call your: Primary Care Provider Call Non-Emergent contact if: you have a fever, temperature is above 101 . . "Provider Documentation" section prepared by Jess Dinh . VTE Core Measure Inpt VTE Proph given/why not?: Other Anticoagulation (xarelto)
--- NOTE | 2016-10-29 15:16 | Discharge Summary ---
Discharge Summary Date of Service Oct 29, 2016. Discharge Summary Admission Date: Oct 25, 2016 at 17:51 Discharge Date: Oct 29, 2016 Discharge Disposition: Home with services (center home care will be there tomarrow morning between 8-8.30) Principal Diagnosis: Resp distress secondary to diastolic heart failure Problems/Secondary Diagnoses: (1) Dyspnea Status: Chronic (2) Hypoxia Status: Chronic Immunizations: Have You Had Influenza Vaccine: No History of Tetanus Vaccine?: utd History of Hepatitis B Vaccine: No Procedures: none Consultations: Cardiology pulmonology Medication Reconciliation Continued Medications: Albuterol Hfa (Ventolin Hfa) 200 Puffs/03963 Mcg Aers 2 PUFFS INH QID PRN for COPD Aspirin (Aspirin) 81 Mg Tab 81 MG PO Q24H Budesonide/Formoterol Fumarate (Symbicort 80/4.5 Inhaler) 120 Puffs/ Aero 2 PUFFS INH BID Diltiazem HCl (Diltiazem HCl ER) 360 Mg Tabcr 360 MG PO DAILY Docusate Sodium (Docusate Sodium) 100 Mg Cap 100 MG PO TID PRN for Constipation Ergocalciferol (Vitamin D 27328 Unit) 50,000 Unit Cap 87617 INTER.UNIT PO WK Ferrous Sulfate (Ferrous Sulfate) 325 Mg Tab 325 MG PO BID Home O2 Therapy (Oxygen) Gas 3-4 LITERS NA HS Hydrochlorothiazide (Hydrochlorothiazide) 12.5 Mg Tab 12.5 MG PO Q24H Ipratropium Vulcan (Ipratropium Vulcan) 0.5 Mg/2.5 Ml Nebu 0.5 MG NEB Q6H PRN for Shortness of Breath for 30 Days, #300 ML 5 Refills Latanoprost (Latanoprost) 37 Drops/2.5 Ml Soln 1 DROP OPB HS Levalbuterol (Levalbuterol HCl) 0.63 Mg/3 Ml Nebu 0.63 MG NEB Q6H PRN for Shortness of Breath Levothyroxine Sodium (Levothyroxine Sodium) 75 Mcg Tab 75 MCG PO QAM, TAB Nitroglycerin (Nitrostat) 0.4 Mg/1 Tab Subl 0.4 MG SL UD PRN for Chest Pain for 14 Days, #14 TAB 3 Refills Rivaroxaban (Xarelto) 15 Mg Tab 15 MG PO Q24H TAKE THIS MEDICATION WITH EVENING MEAL Tiotropium Vulcan (Spiriva Handihaler) 30 Puff/540 Mcg Aerp 1 CAP INH QAM, CAP Referrals At Discharge Follow up Referrals: Lead [facility]ourer Referral - Within 2 Weeks with Oliverio Mason M.D. Family Practice Referral - Within 1-2 Weeks with RV. Trevizo MD Discharge Exam Pt is seen and examined by me at the day of discharge. Pt is doing very well, and willing to go home.Pt denies SOB, dizziness, palpitation and LOC. Pt was advised to follow up with PCP and the consultants. Review of Systems: Constitutional: No fever, No chills, No sweats ENT: + hearing loss (chr hearing loss, using hairing aid) Respiratory: No cough, No sputum, No wheezing, No shortness of breath, No dyspnea on exertion, No dyspnea at rest Cardiovascular: No chest pain, No orthopnea, No edema Musculoskeletal: No joint pain Genitourinary - Female: No urinary frequency, No urinary urgency, No urinary incontinence Neurologic: No memory loss, No paralysis, No numbness/tingling Psychiatric: No depression symptoms Endocrine: No fatigue Hematologic / Lymphatic: No abnormal bleeding/bruising Integumentary: No rash Physical Exam: General Appearance: WD/WN, no apparent distress Neck: supple, no adenopathy Respiratory/Chest: chest non-tender, lungs clear, normal breath sounds, no respiratory distress, no accessory muscle use Cardiovascular: regular rate, rhythm, no edema, no gallop, no JVD, no murmur Abdomen / GI: normal bowel sounds, non tender, soft, no organomegaly Extremities: no calf tenderness, no pedal edema, normal range of motion Neurologic/Psychiatric: credit investigator II-XII nml as tested, alert, normal mood/affect , normal reflexes, oriented x 3 Skin: no rash Lymphatic: no adenopathy Hospital Course 86 y/o F with a past medical history of COPD, severe aortic stenosis s/p recent TAVR, atrial fibrillation, hypertension, and GERD presented to the ER with complaints of shortness of breath. Respiratory distress/ history of COPD - Pt has O2 at home for HS only, suggests that she does not know how to adjust her O2 level herself--will need education on d/c Chest x-ray on admission with trace pleural fluid left base, repeat with CHF- Improved clinically s/p 20mg IV lasix 10/25, had needed daily IV 10mg lasix for mild crackles and SOB. Will start 10mg QD and monitor, negative 950 - Continue prednisone 10 mg daily and Symbicort 2 puffs twice a day and Spiriva 1 puff every morning - Xopenex and Atrovent as needed - ECHO noted with likely systolic CHF Atrial fibrillation with RVR: - Diltiazem 360 mg. - Discontinued digoxin per Dr Mack. - Continue Xarelto for anticoagulation - TSH low with upper normal FT4 during last admission, history of taking excess Synthroid for weight loss Severe aortic stenosis : status post TAV[facility] recently, small leak noted on ECHO, cardiology feels this is WNL ECHO noted Cards had discussed transfusion, however pt later declined Concern for swallowing issues Speech eval noted with mild deficit, diet adjusted Constipation colace to [facility], pt declined fleet enema on 10/24 Probiotic Hypokalemia: Potassium on admission 2.7, repleted Anxiety Lorazepam 0.5 mg every 6 when necessary Hypertension - HCTZ 12.5mg Hypothyroidism - Synthroid 75mcg DVT Prophylaxis -Xarelto Code Status - DNR Total Time Spent: Greater than 30 minutes This includes examination of the patient, discharge planning, medication reconciliation, and communication with other providers. Discharge Instructions Please refer to the electronic Patient Visit Report (Discharge Instructions) for additional information. Follow-Up Last Resulted CBC 10/27/16 05:12 10/28/16 12:05 Last Resulted BMP 10/28/16 12:05 Additional Copies To RV. Trevizo MD
--- NOTE | 2016-11-01 10:54 | EDITING REQUIRED CODING QUERY ---
CHRONIC KIDNEY DISEASE To promote full compliance with coding requirements relating to patient care, physician participation is requested in all cases of business operations specialist uncertainty. Please assist us with the question(s) below: Coding Question(s): The record reflects the following clinical findings: Chronic Kidney Disease documented on Cardiology Consult. Please specify the known or suspected type by placing an "X" within the parenthesis (x). If other, please document type. Please document Staging if known: ( ) Stage I >90 Kidney damage with normal or elevated GFR. ( ) Stage II 60-89 Kidney damage with mildly decreased kidney function ( ) Stage III 30-59 Moderately decreased kidney function ( ) Stage IV 15-29 Severely decreased kidney function ( ) Stage V <15 Renal failure (or dialysis) ( ) End Stage ( ) Unknown Thank you Nikia Barnett Stage2 CKD Dr Corral.Christin
[2017-03-22] MEDS ORDERED: LNX125 PO (09:39)
[2017-03-22] MEDS ORDERED: LPR25 PO (09:39)
[2017-03-22] MEDS ORDERED: PRED20TA PO (09:46)
[2017-03-22] MEDS ORDERED: PRED10TA PO (09:46)
[2017-03-22] MEDS ORDERED: XPNINS INH (09:46)
[2017-04-16] MEDS ORDERED: LEVO1TAB35 PO ×2 (10:34→15:19)
[2017-04-16] MEDS ORDERED: DXY100 PO (10:34)
== END 2016-10-29 16:16 | disposition home health service (06) | DRG 291 ==
LOC: EDBD 19:54 → C.EDA 19:55 → C.2E 23:43 → ENRESERV 23:55 → OBSVTOIN 10-25 17:51 → ENRESERV 10-28 12:52 → C.MS2W 10-28 13:54 → CMPBEDREQ 10-28 14:03
PROVIDERS: ADMIT Family Medicine; ATTEND Family Medicine
DX: I13.0 Hypertensive heart and chronic kidney disease with heart failure and stage 1 through stage 4 chronic kidney disease, or unspecified chronic kidney disease (principal); I50.33 Acute on chronic diastolic (congestive) heart failure; J44.1 Chronic obstructive pulmonary disease with (acute) exacerbation; I27.2 Other secondary pulmonary hypertension; D64.9 Anemia, unspecified; I48.2 Chronic atrial fibrillation; E87.6 Hypokalemia; I35.0 Nonrheumatic aortic (valve) stenosis; R09.02 Hypoxemia; K59.00 Constipation, unspecified; N18.2 Chronic kidney disease, stage 2 (mild); I25.10 Atherosclerotic heart disease of native coronary artery without angina pectoris; J45.909 Unspecified asthma, uncomplicated; F41.9 Anxiety disorder, unspecified; K21.9 Gastro-esophageal reflux disease without esophagitis; E03.9 Hypothyroidism, unspecified; Z51.81 Encounter for therapeutic drug level monitoring; Z79.899 Other long term (current) drug therapy; Z79.01 Long term (current) use of anticoagulants; Z79.52 Long term (current) use of systemic steroids; Z99.81 Dependence on supplemental oxygen; Z66 Do not resuscitate; Z95.2 Presence of prosthetic heart valve; Z91.81 History of falling; Z85.820 Personal history of malignant melanoma of skin; Z87.01 Personal history of pneumonia (recurrent); Z87.891 Personal history of nicotine dependence; Z82.49 Family history of ischemic heart disease and other diseases of the circulatory system; Z82.3 Family history of stroke

== ENCOUNTER → 2016-11-29 | Outpatient (CLI) | payer OTHER ==
[~2016-11-29] MED LIST changes: -ACET325T96 PO; +ASPI-461 PO; -ATV5 PO; -CARB0.25 OPB; +CLC100 PO; -CRDSR60 PO; +DILT360C23 PO; +ERGO1CAP41 PO; +FERR325T PO; -FURO-85 PO; -HYDROCHLOROTHIAZIDE 25 MG TAB PO SCH; +LEVO75TA5 PO; -MRLP17X PO; -MULT-506 PO; -POTA10CA28 PO; -PRD20 PO; -PRT40 PO; -SENNTAB23 PO; -SLWMEC PO; -SPRIN INH; +SPRIN/30 INH; -TRAV0.00 OPB; +VNTHFA/IN INH; -VTMD PO; +XLTOPS OPB
[2016-11-29 17:28] LABS: BASO % 0.5 %; BASO ABS # 0.04 K/uL (0-0.2); COMPLETE YES; EOS % 3.7 %; HEMATOCRIT 36.3 % (37-47); IG% 0.1 %; LYMPH % 21.4 %; LYMPH ABS # 1.58 K/uL (1.2-3.4); MEAN CORPUSCULAR HEMOGLOBIN 31.2 pg (25-34); MEAN CORPUSCULAR HGB CONC 32.8 g/dl (32-36); MEAN PLATELET VOLUME 9.5 fL (7.4-10.4); MONO % 11.4 %; NEUT % 62.9 %; PLATELET COUNT 277 K/uL (130-400); RED BLOOD COUNT 3.82 M/uL (4.2-5.4); WHITE BLOOD COUNT 7.39 K/uL (4.8-10.8)
[2016-11-29 18:01] LABS: FERRITIN 102.3 ng/ml (8.0-388.0)
== END | disposition home or self-care (01) ==
LOC: C.LAB1850 16:31
PROVIDERS: ATTEND Physician Assistant Medical
DX: D64.9 Anemia, unspecified (principal)

== ENCOUNTER → 2016-12-05 | Outpatient (CLI) | payer OTHER ==
--- NOTE | 2016-12-05 12:59 | DIAGNOSTIC IMAGING REPORT ---
CHEST 2 VIEWS ROUTINE CLINICAL HISTORY: COPD exacerbation. COMPARISON STUDY: Chest radiograph October 25, 2016. FINDINGS: There is no pneumothorax. Small bilateral pleural effusions have slightly increased. Bibasilar opacities favor atelectasis. There is a prosthetic cardiac valve. Cardiomediastinal silhouette is stable. There is pulmonary vascular congestion. IMPRESSION: 1. Pulmonary vascular congestion. 2. Slight increase in small bilateral pleural effusions with associated bibasilar opacities which favor atelectasis. Electronically signed by: Fredis Canales M.D. 12/05/2016 12:58 PM Dictated Date/Time: 12/05/2016 12:55 PM
== END | disposition home or self-care (01) ==
LOC: C.RAD1850 12:33
PROVIDERS: ATTEND Internal Medicine Pulmonary Disease
DX: J44.1 Chronic obstructive pulmonary disease with (acute) exacerbation (principal)

== ENCOUNTER → 2016-12-26 | Outpatient (CLI) | payer OTHER ==
[2016-12-26 16:38] LABS: HEMATOCRIT 36.7 % (37-47); MEAN CELL VOLUME 96.3 fL (80-100); MEAN CORPUSCULAR HGB CONC 33.2 g/dl (32-36); MEAN PLATELET VOLUME 10.3 fL (7.4-10.4); PLATELET COUNT 257 K/uL (130-400); RED BLOOD COUNT 3.81 M/uL (4.2-5.4); WHITE BLOOD COUNT 11.71 K/uL (4.8-10.8)
[2016-12-26 17:02] LABS: ALT/SGPT 35 U/L (12-78); BLOOD UREA NITROGEN 21 mg/dl (7-18); BUN/CREATININE RATIO 25.5 (10-20); CALCIUM 9.1 mg/dl (8.5-10.1); CARBON DIOXIDE 32 mmol/L (21-32); CHLORIDE 100 mmol/L (98-107); CREATININE 0.82 mg/dl (0.60-1.20); GLUCOSE 123 mg/dl (70-99); POTASSIUM 3.6 mmol/L (3.5-5.1); SODIUM 139 mmol/L (136-145)
[2016-12-26 17:12] LABS: ALB/GLOB RATIO 1.2 (0.9-2); ALKALINE PHOSPHATASE 50 U/L (45-117); AST/SGOT 20 U/L (15-37)
== END | disposition home or self-care (01) ==
LOC: C.LAB 15:34
PROVIDERS: ATTEND Family Medicine Adult Medicine
DX: E03.9 Hypothyroidism, unspecified (principal); R63.0 Anorexia; I10 Essential (primary) hypertension; D64.9 Anemia, unspecified

== ENCOUNTER → 2017-01-29 | Outpatient (CLI) | payer OTHER ==
[2017-01-29 16:07] LABS: BLOOD UREA NITROGEN 22 mg/dl (7-18); CALCIUM 8.8 mg/dl (8.5-10.1); CARBON DIOXIDE 32 mmol/L (21-32); CHLORIDE 104 mmol/L (98-107); GLUCOSE 81 mg/dl (70-99); POTASSIUM 3.3 mmol/L (3.5-5.1); SODIUM 141 mmol/L (136-145)
== END | disposition home or self-care (01) ==
LOC: C.LAB 14:27
PROVIDERS: ATTEND Family Medicine
DX: E03.9 Hypothyroidism, unspecified (principal); R60.0 Localized edema

== ENCOUNTER → 2017-01-30 | Outpatient (CLI) | payer OTHER | END | disposition home or self-care (01) | LOC: C.LAB1850 14:53 | PROVIDERS: ATTEND Family Medicine | DX: R41.3 Other amnesia (principal) ==

== ENCOUNTER 2017-03-16 05:56 | Inpatient (IN) | payer OTHER ==
[2017-03-16] VITALS (8 sets, daily range): BP systolic 123–150; BP diastolic 69–90; PULSE 88–120; TEMP 36.4–36.8; O2SAT 92–98; Ht 154.9 cm; Wt 56.9 kg
[~2017-03-16] VITALS: Ht 154.9 cm; Wt 56.9 kg
[~2017-03-16 05:56] MED LIST changes: -ERGO1CAP41 PO; +ERGO500011 PO; +FERR1TAB62 PO; -FERR325T PO
[2017-03-16] MEDS ORDERED: ALBUT/IPRATROP 3MG/0.5MG NEB 3 ML VIAL INH ONE (06:00)
[2017-03-16] MEDS ORDERED: METHYLPREDNISOLONE 125 MG VIAL IV STA (06:00)
--- NOTE | 2017-03-16 06:11 | EMERGENCY ROOM VISIT NOTE ---
History Report prepared by Luana: Tory Schroeder Under the Supervision of: Dr. Howard León M.D. First contact with patient: 05:53 Chief Complaint: RESPIRATORY DISTRESS Stated Complaint: RESPIRATORY DISTRESS History of Present Illness The patient is a 87 year old female who presents to the Emergency Room by EMS experiencing respiratory distress. Per EMS, she was experiencing shortness of breath a few hours ago and called 911. Upon arrival of EMS, there were no breath sounds, difficulty breathing, and she was hypoxic. EMS states that she had a fever and is in Afib. The patient is not normally in Afib. The patient takes prednisone. EMS administered albuterol and a CPAP. This HPI is limited secondary to the patient's respiratory distress. Source of History: EMS History Limited By: dyspnea Onset: a few hours ago Position: other (global) Quality: other (respiratory distress) Timing: other (persistent) Associated Symptoms: + fevers, + SOB Review of Systems ROS is limited secondary to the patient's respiratory distress. 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 (20) Neck pain (21) Pneumonia (22) Recurrent falls (23) Respiratory distress (24) Right humeral fracture (25) Severe aortic stenosis by prior echocardiogram (26) SOB (shortness of breath) Family History Heart disease Hypertension Social History Smoking Status: Former Smoker Alcohol Use: none Drug Use: none Marital Status: Housing Status: lives alone Occupation Status: retired Current/Historical Medications Scheduled Apixaban (Eliquis), 2.5 MG PO BID Aspirin (Aspirin), 81 MG PO Q24H Diltiazem HCl (Diltiazem HCl ER), 360 MG PO DAILY Ergocalciferol (Vitamin D 53266 Unit), 50,000 INTER.UNIT PO WK Ferrous Sulfate (Ferrous Sulfate), 325 MG PO Q2D Fluticasone Furoate-Vilanterol (Breo Ellipta), 1 INHA PO DAILY Furosemide (Lasix), 40 MG PO UD Home O2 Therapy (Oxygen), 3-4 LITERS NA HS Ipratropium-Albuterol (Combivent Respimat), 1 PUFFS INH QID Latanoprost (Latanoprost), 1 DROP OPB HS Levothyroxine Sodium (Levothyroxine Sodium), 75 MCG PO QAM Multiple Vitamins W/ Minerals (Multi Complete), 1 CAP PO DAILY Potassium Chloride (Klor-Con M20), 20 MEQ PO BID Prednisone (Prednisone), 1.5 TAB PO DAILY Sucralfate (Carafate), 1 GM PO TID Travoprost (Travatan Z), 1 DROPS OP HS Scheduled PRN Alprazolam (Xanax), 0.25 MG PO Q12 PRN for Anxiety Docusate Sodium (Docusate Sodium), 100 MG PO TID PRN for Constipation Allergies Coded Allergies: Clonidine (Verified Allergy, Mild, SHORTNESS OF BREATH, 09/23/16) Iodinated Diagnostic Agents (Verified Allergy, Unknown, "IT JUST AFFECTS ME AND I CAN'T EXPLAIN IT", 09/23/16) Latex1 -Allergic Contact Dermititis (Verified Allergy, Unknown, RASH, ) Penicillins (Verified Allergy, Unknown, UNKNOWN, 09/23/16) Sulfa Antibiotics (Verified Allergy, Unknown, "SWELLING IN MOUTH AND DRIED OUT", 09/23/16) Physical Exam Vital Signs Date Time Temp Pulse Resp B/P (MAP) Pulse Ox O2 Delivery O2 Flow Rate FiO2 03/16/17 08:30 104 30 125/64 97 BiPAP 60 03/16/17 08:00 116 28 118/75 99 BiPAP 60 03/16/17 07:45 110 30 123/63 99 BiPAP 60 03/16/17 07:27 108 30 98 BiPAP 60 03/16/17 07:15 138 30 139/62 99 BiPAP 60 03/16/17 07:05 99 CPAP 60 03/16/17 06:48 120 22 142/81 100 CPAP 03/16/17 06:29 126 24 161/94 100 CPAP 03/16/17 06:23 103 03/16/17 06:14 92 97 60 03/16/17 06:01 37.3 90 26 125/110 96 CPAP 03/16/17 06:01 99 CPAP Physical Exam GENERAL: Patient is severely unwell appearing. In severe distress. Severely anxious. HEENT: No acute trauma, normocephalic atraumatic, mucous membranes moist, no nasal congestion, no scleral icterus. NECK: No stridor, no adenopathy, no meningismus, trachea is midline. LUNGS: Minimal breath sounds. Tachypneic. Severely dyspneic. HEART: Regular rate and rhythm. No murmurs, rubs, gallops appreciated. ABDOMEN: Soft, nontender, bowel sounds positive, no masses appreciated, no peritonitis. BACK: No midline tenderness, no CVA tenderness EXTREMITIES: Normal motion all extremities, no cyanosis, no edema. NEUROLOGIC: Alert and oriented, no acute motor or sensory deficits, no focal weakness, cranial nerves grossly intact. SKIN: No rash, no jaundice, no diaphoresis. Medical Decision & Procedures Laboratory Results 03/16/17 06:12 Red Blood Count 4.26, Mean Corpuscular Volume 95.1, Mean Corpuscular Hemoglobin 30.8, Mean Corpuscular Hemoglobin Concent 32.3, Mean Platelet Volume 10.2, Neutrophils (%) (Auto) 82.2, Lymphocytes (%) (Auto) 8.9, Monocytes (%) (Auto) 7.8, Eosinophils (%) (Auto) 0.5, Basophils (%) (Auto) 0.2, Neutrophils # (Auto) 18.69, Lymphocytes # (Auto) 2.02, Monocytes # (Auto) 1.78, Eosinophils # (Auto) 0.11, Basophils # (Auto) 0.04 03/16/17 06:12 Test 03/16/17 06:12 03/16/17 06:32 White Blood Count 22.73 K/uL (4.8-10.8) Red Blood Count 4.26 M/uL (4.2-5.4) Hemoglobin 13.1 g/dL (12.0-16.0) Hematocrit 40.5 % (37-47) Mean Corpuscular Volume 95.1 fL (80-100) Mean Corpuscular Hemoglobin 30.8 pg (25-34) Mean Corpuscular Hemoglobin Concent 32.3 g/dl (32-36) Platelet Count 277 K/uL (130-400) Mean Platelet Volume 10.2 fL (7.4-10.4) Neutrophils (%) (Auto) 82.2 % Lymphocytes (%) (Auto) 8.9 % Monocytes (%) (Auto) 7.8 % Eosinophils (%) (Auto) 0.5 % Basophils (%) (Auto) 0.2 % Neutrophils # (Auto) 18.69 K/uL (1.4-6.5) Lymphocytes # (Auto) 2.02 K/uL (1.2-3.4) Monocytes # (Auto) 1.78 K/uL (0.11-0.59) Eosinophils # (Auto) 0.11 K/uL (0-0.5) Basophils # (Auto) 0.04 K/uL (0-0.2) RDW Standard Deviation 47.0 fL (36.4-46.3) RDW Coefficient of Variation 13.6 % (11.5-14.5) Immature Granulocyte % (Auto) 0.4 % Immature Granulocyte # (Auto) 0.09 K/uL (0.00-0.02) Prothrombin Time 10.7 SECONDS (9.0-12.0) Prothromb Time International Ratio 1.0 (0.9-1.1) Venous Blood pH 7.37 (7.36-7.41) Venous Blood Partial Pressure CO2 57 mmHg (38.0-50.0) Venous Blood Partial Pressure O2 56 mmHg Venous Blood HCO3 33 mmol/L Venous Blood Oxygen Saturation 84.9 % Venous Blood Base Excess 5.8 mEq/L Est Creatinine Clear Calc Drug Dose 39.0 ml/min Estimated GFR () 79.8 Estimated GFR (Non- 68.8 BUN/Creatinine Ratio 21.6 (10-20) Calcium Level 8.9 mg/dl (8.5-10.1) Total Creatine Kinase 43 U/L (26-192) Creatine Kinase MB 2.2 ng/ml (0.5-3.6) Creatine Kinase MB Ratio 5.1 (0-3.0) Pro-B-Type Natriuretic Peptide 809 pg/ml (0-1800) Thyroid Stimulating Hormone (TSH) 3.530 uIu/ml (0.300-4.500) Bedside Hemoglobin 13.9 g/dl (12.0-16.0) Bedside Hematocrit 41 % (37-47) Bedside Sodium 138 mEq/L (135-144) Bedside Potassium 3.7 mEq/L (3.3-5.0) Bedside Chloride 95 mEq/L (101-112) Bedside Total CO2 30 mEq/l (24-31) Anion Gap 17.0 mmol/L (16-25) Bedside Blood Urea Nitrogen 18 mg/dl (7-18) Bedside Creatinine 0.8 mg/dl (0.6-1.3) Bedside Glucose (other) 139 mg/dl (70-99) Bedside Ionized Calcium (Beulah) 1.17 mmol/l (1.12-1.32) Laboratory results as reviewed by me. Medications Administered Medications (Trade) Dose Ordered Sig/Yared Route Start Time Stop Time Status Last Admin Dose Admin Albuterol/ Ipratropium (Duoneb) 12 ml ONE ONCE INH 03/16/17 06:00 03/16/17 06:02 DC 03/16/17 06:13 12 ML Methylprednisolone Sodium Succinate (Solu-Medrol IV) 80 mg NOW STAT IV 03/16/17 06:00 03/16/17 06:02 DC 03/16/17 06:18 80 MG Lorazepam (Ativan Inj) 0.5 mg NOW STAT IV 03/16/17 06:18 03/16/17 06:19 DC 03/16/17 06:24 0.5 MG Levofloxacin (Levaquin / D5W) 750 mg NOW STAT IV 03/16/17 06:32 03/16/17 06:34 DC 03/16/17 06:38 750 MG Aztreonam 2000 mg/ Dextrose 110 ml @ 100 mls/hr NOW STAT IV 03/16/17 06:32 03/16/17 07:37 DC 03/16/17 06:48 100 MLS/HR Diltiazem HCl (Cardizem Inj) 10 mg NOW STAT IV 03/16/17 07:28 03/16/17 07:29 DC 03/16/17 07:40 10 MG Apixaban (Eliquis Tab) 2.5 mg BID PO 03/16/17 09:00 04/15/17 08:59 03/16/17 21:55 2.5 MG Aspirin (Ecotrin Tab) 81 mg Q24H PO 03/16/17 08:45 04/15/17 08:44 03/16/17 13:40 81 MG ECG Indication: SOB/dyspnea Rate (beats per minute): 97 Rhythm: atrial fibrillation Findings: nonspecific-ST abn Change: Acute TC of 469. Poor baseline. ED Course 0555: The patient was evaluated in room B1. A complete history and physical exam was performed. 0600: Solu-Medrol IV 80 mg IV, Duoneb 12 ml INH. 0617: I reassessed the patient. She is breathing more comfortably but still severely anxious. 0618: Ativan Inj 0.5 mg IV. 0715: Medicine was consulted. Medical Decision Differential: Infectious, Reactive Airway Disease, Pneumonia, Pneumothorax, COPD , CHF, ACS, Pulmonary Embolism, MSK, GI, Dissection, amongst other etiologies entertained. 87 yr old female with long history of COPD exacerbations arrives in severe distress and highly anxious. She has very poor lung exam moving minimal air. In field she was placed on Cpap, after being found to be hypoxic and febrile, she was made aware to me by EMS through med command. She was switched to BIPAP on arrival with improvement in breathing though still minimal breath sounds and severe anxiety unable to even stay still in bed nor tolerate bipap. For this she was given small dose IV ativan with vast improvement in her breathing and comfort. She was started on continuous duoneb along with given IV solumedrol given her history and minimal air movement. CXR with either pulmonary edema or diffuse pneumonia. I suspect she has RLL infiltrate and that edema may have been brought on by hypoxic/infection at home. Given no pitting edema leg nor significant JVD and breathing much more comfortably, I will hold on IV lasix given the concern of sepsis. That said, I feel IV fluids contraindicated in this patient even though she likely has element of sepsis. She has no hypotension nor lactic acid elevation. She does have elevated WBC and with fevers by EMS and likely RLL infiltrate this is sepsis as well. Thus given Levaquin (qtc OK) and aztreonam (allergic to PNC). Patient re-evaluated many times and was a bit sleepy a while later though she is matching BIPAP well and in not in extremis any longer. I feel PE is low likelihood given other much more likely diagnosis, thus will hold on anti-coagulation. Furthermore, she is already on Eliquis. She did start becoming more and more tachycardic. Patient admits she did not take her medications this morning. For this reason I ordered small dose IV diltiazem (takes this at home) as would like to avoid b- blockers in her and will defer other anti-arrythmics to cards/hospitalist. HR did start coming down with initial dose, but I suspect that like previous visits she will need further diltiazem and thus have discussed this with Hospitalist Resident at bedside. Medication Reconcilliation Current Medication List: was personally reviewed by me Blood Pressure Screening Patient's blood pressure: Elevated blood pressure Blood pressure disposition: Elevated BP felt to be situational (will be monitored by hopitalist) Impression Primary Impression: Respiratory failure Additional Impressions: Pulmonary edema Sepsis Pneumonia Atrial fibrillation with RVR Critical Care I have personally spent greater than 90 minutes of critical care time in the direct management of this patient. This was a life/limb threatening event. This includes time spent evaluating patient, pre-hospital command, direct bedside care, chart review, placing orders, interpretation of diagnostic studies , discussion with consultants, patient, and family members, as well as other required patient management activities. This 90 minutes is in excess of all separately billable procedures. Scribe Attestation The scribe's documentation has been prepared under my direction and personally reviewed by me in its entirety. I confirm that the note above accurately reflects all work, treatment, procedures, and medical decision making performed by me. Departure Information Referrals Sheila Hurtado M.D. (PCP) Patient Instructions Asthma - [facility], COPD - [facility], Croup - [facility], [facility] Problem Qualifiers
[2017-03-16] MEDS ORDERED: LORAZEPAM 2 MG/ML 1 ML VIAL IV STA (06:18)
[2017-03-16 06:19] LABS: VEN BLD GAS O2 SATURATION 84.9 %; VEN BLOOD GAS BASE EXCESS 5.8 mEq/L
[2017-03-16 06:28] LABS: BASO % 0.2 %; BASO ABS # 0.04 K/uL (0-0.2); COMPLETE YES; EOS % 0.5 %; HEMATOCRIT 40.5 % (37-47); IG% 0.4 %; LYMPH % 8.9 %; LYMPH ABS # 2.02 K/uL (1.2-3.4); MEAN CELL VOLUME 95.1 fL (80-100); MEAN CORPUSCULAR HEMOGLOBIN 30.8 pg (25-34); MEAN CORPUSCULAR HGB CONC 32.3 g/dl (32-36); MEAN PLATELET VOLUME 10.2 fL (7.4-10.4); MONO % 7.8 %; NEUT % 82.2 %; PLATELET COUNT 277 K/uL (130-400); RED BLOOD COUNT 4.26 M/uL (4.2-5.4); WHITE BLOOD COUNT 22.73 K/uL (4.8-10.8)
[2017-03-16] MEDS ORDERED: AZTREONAM IV 2,000 MG in DEXTROSE 5% 100ML 100 ML IV STA (06:32)
[2017-03-16] MEDS ORDERED: LEVAQUIN 750MG / 150ML D5W IV STA (06:32)
--- NOTE | 2017-03-16 06:41 | DIAGNOSTIC IMAGING REPORT ---
CHEST ONE VIEW PORTABLE HISTORY: 87 years-old Female SHOB acute shortness of breath with respiratory distress COMPARISON: Chest radiograph 12/05/2016 TECHNIQUE: Portable upright AP view of the chest FINDINGS: Cardiac silhouette is mildly enlarged, unchanged. Coronary vascular congestion is again noted. Prosthetic cardiac valve. Atherosclerosis of the aorta. Pulmonary vascular congestion with background interstitial coarsening. Trace fluid tracks along the minor fissure. Small bilateral pleural effusions, slightly increased in size on the right with hazy bibasilar opacities. No pneumothorax. The bones are grossly intact. IMPRESSION: 1. Cardiomegaly with pulmonary vascular congestion and background interstitial coarsening suspicious for mild pulmonary edema. 2. Small bilateral pleural effusions with bibasilar opacities suggesting atelectasis. The above report was generated using voice recognition software. It may contain grammatical, syntax or spelling errors. Electronically signed by: Camden Avendano M.D. 03/16/2017 6:39 AM Dictated Date/Time: 03/16/2017 6:37 AM
[2017-03-16 06:45] LABS: ISTAT CREATININE 0.8 mg/dl (0.6-1.3); ISTAT HEMOGLOBIN 13.9 g/dl (12.0-16.0); ISTAT IONIZED CALCIUM 1.17 mmol/l (1.12-1.32)
[2017-03-16 06:45] LABS: BUN/CREATININE RATIO 21.6 (10-20); CALCIUM 8.9 mg/dl (8.5-10.1); CREATININE 0.78 mg/dl (0.60-1.20); POTASSIUM 3.7 mmol/L (3.5-5.1)
[2017-03-16] MEDS ORDERED: ALPR0.25 PO (06:48)
[2017-03-16] MEDS ORDERED: FLUT1INH PO (06:49)
[2017-03-16] MEDS ORDERED: SUCR1TAB29 PO (06:49)
[2017-03-16 06:50] LABS: CKMB/CK RATIO 5.1 (0-3.0)
[2017-03-16] MEDS ORDERED: IPRA1AER2 INH (06:50)
[2017-03-16] MEDS ORDERED: APIX1TAB PO (06:50)
[2017-03-16] MEDS ORDERED: TRAV0.00 OP (06:53)
[2017-03-16] MEDS ORDERED: PRED-301 PO (06:53)
[2017-03-16] MEDS ORDERED: MCRK20 PO (06:55)
[2017-03-16] MEDS ORDERED: FRS/40 PO (06:55)
[2017-03-16] MEDS ORDERED: MULT1CAP16 PO (06:55)
[2017-03-16] MEDS ORDERED: DILTIAZEM HCL 5 MG/ML 5 ML VIAL IV STA (07:28)
[2017-03-16] MEDS ORDERED: ONDANSETRON INJ 2 MG/ML 2 ML VIAL IV PRN (08:45)
[2017-03-16] MEDS ORDERED: ACETAMINOPHEN 325 MG TAB PO PRN (08:45)
[2017-03-16] MEDS ORDERED: MAGNESIUM HYDROXIDE SUSP 30 ML UDC PO PRN (08:45)
[2017-03-16] MEDS ORDERED: ALUMINUM/MAGNESIUM/SIMETH (MAALOX MAX) 30 ML UDC PO PRN (08:45)
[2017-03-16] MEDS ORDERED: FUROSEMIDE 40 MG TAB PO SCH (08:45)
[2017-03-16] MEDS ORDERED: FLUTICASONE FUROATE PO SCH (09:00)
[2017-03-16] MEDS ORDERED: VILANTEROL PO SCH (09:00)
--- NOTE | 2017-03-16 09:49 | History and Physical ---
History & Physical Date & Time of Service: Mar 16, 2017 at 09:49 Chief Complaint: Respiratory Distress Primary Care Physician: Sheila Hurtado M.D. History of Present Illness Source: patient, clinic records, hospital records, EMS This is a 87 yo F with Hx of COPD on home O2 3-4 L NC, on prednisone 5mg daily at home. with multiple recent admissions for 10/02 and 10/29 for Dyspnea., Hx of Severe Aortic Stenosis s/p TAVR (09/2016) Hx of Atrial Fibrillation on Diltazem 360 mg daily , Eliquis, diastolic congestive heart failure presenting with progressive SOB over the last few days. She arrived BIBA having received Albuterol and CPAP placement. In the ED, patient was afebrile, tachypneic with a White ct of 22., CXR with Bibasilar opacities. Patient was started empirically on IV Levaquin, started 10 mg IV Solu-Medrol and nebulizer treatment, HPI was difficult to get directly from from patient due to Resp distress and need for BIPAP saw much of the history is per the chart. She denied Chest pain. Last Echo 10/24/16 showed normal left ventricular size and function with ejection fraction of 55-60% and a functioning bioprosthetic aortic valve per Cardiology. Past Medical/Surgical History Medical Problems: (1) Anxiety Status: Chronic (2) Asthma Status: Chronic (3) Atrial fibrillation with RVR Status: Chronic (4) Back pain Status: Resolved (5) Back pain Status: Resolved (6) Benign hypertension Status: Chronic (7) Bronchitis Status: Resolved (8) Cataract Status: Chronic (9) Critical stenosis of aortic valve Status: Chronic (10) Dehydration Status: Resolved (11) Disorder of gallbladder Status: Chronic (12) Dyspnea Status: Chronic (13) Fall Status: Resolved (14) Humeral head fracture Status: Resolved (15) Hypoxia Status: Chronic (16) Kidney disease Status: Chronic (17) melanoma Status: Resolved (18) Neck pain Status: Resolved (19) Pneumonia Status: Resolved (20) Recurrent falls Status: Chronic (21) Right humeral fracture Status: Resolved Family History Heart disease Hypertension Social History Smoking Status: Former Smoker Drug Use: none Marital Status: Housing status: lives alone Occupational Status: retired Immunizations History of Influenza Vaccine: No History of Tetanus Vaccine?: utd History of Hepatitis B Vaccine: No Allergies Coded Allergies: Clonidine (Verified Allergy, Mild, SHORTNESS OF BREATH, 09/23/16) Iodinated Diagnostic Agents (Verified Allergy, Unknown, "IT JUST AFFECTS ME AND I CAN'T EXPLAIN IT", 09/23/16) Latex1 -Allergic Contact Dermititis (Verified Allergy, Unknown, RASH, ) Penicillins (Verified Allergy, Unknown, UNKNOWN, 09/23/16) Sulfa Antibiotics (Verified Allergy, Unknown, "SWELLING IN MOUTH AND DRIED OUT", 09/23/16) Home Medications Scheduled Apixaban (Eliquis), 2.5 MG PO BID Aspirin (Aspirin), 81 MG PO Q24H Diltiazem HCl (Diltiazem HCl ER), 360 MG PO DAILY Ergocalciferol (Vitamin D 32786 Unit), 50,000 INTER.UNIT PO WK Ferrous Sulfate (Ferrous Sulfate), 325 MG PO Q2D Fluticasone Furoate-Vilanterol (Breo Ellipta), 1 INHA PO DAILY Furosemide (Lasix), 40 MG PO UD Home O2 Therapy (Oxygen), 3-4 LITERS NA HS Ipratropium-Albuterol (Combivent Respimat), 1 PUFFS INH QID Latanoprost (Latanoprost), 1 DROP OPB HS Levothyroxine Sodium (Levothyroxine Sodium), 75 MCG PO QAM Multiple Vitamins W/ Minerals (Multi Complete), 1 CAP PO DAILY Potassium Chloride (Klor-Con M20), 20 MEQ PO BID Prednisone (Prednisone), 1.5 TAB PO DAILY Sucralfate (Carafate), 1 GM PO TID Travoprost (Travatan Z), 1 DROPS OP HS Scheduled PRN Alprazolam (Xanax), 0.25 MG PO Q12 PRN for Anxiety Docusate Sodium (Docusate Sodium), 100 MG PO TID PRN for Constipation Review of Systems could not assess due to patient's respiratory status Physical Exam Vital Signs Date Time Temp Pulse Resp B/P (MAP) Pulse Ox O2 Delivery O2 Flow Rate FiO2 03/16/17 09:41 110 28 110/83 99 03/16/17 09:34 124 03/16/17 09:29 116 28 110/83 100 Room Air 60 03/16/17 08:30 104 30 125/64 97 BiPAP 60 03/16/17 08:00 116 28 118/75 99 BiPAP 60 03/16/17 07:45 110 30 123/63 99 BiPAP 60 03/16/17 07:27 108 30 98 BiPAP 60 03/16/17 07:15 138 30 139/62 99 BiPAP 60 03/16/17 07:05 99 CPAP 60 03/16/17 06:48 120 22 142/81 100 CPAP 03/16/17 06:29 126 24 161/94 100 CPAP 03/16/17 06:23 103 03/16/17 06:14 92 97 60 03/16/17 06:01 37.3 90 26 125/110 96 CPAP 03/16/17 06:01 99 CPAP GENERAL: drowsy, resp distress on bipap EYE EXAM: normal conjunctiva, PERRL and EOM's grossly intact NECK: supple, no adenopathy, non-tender LUNGS: Clear to auscultation. HEART: no murmurs, tachycardia Irregular rate, rhythm ABDOMEN: abdomen soft, non-tender, normo-active bowel sounds, no masses, no rebound or guarding. SKIN: no rashes and no bruising UPPER EXTREMITIES: upper extremities are grossly normal. LOWER EXTREMITIES: No pitting edema. NEURO EXAM: Normal sensorium, cranial nerves II-XII [grossly] intact, normal speech, no [gross] weakness of arms, no [gross] weakness of legs. Diagnostics Laboratory Results Results Past 24 Hours Test 03/16/17 06:12 03/16/17 06:32 03/16/17 09:45 Range/Units White Blood Count 22.73 4.8-10.8 K/uL Red Blood Count 4.26 4.2-5.4 M/uL Hemoglobin 13.1 12.0-16.0 g/dL Hematocrit 40.5 37-47 % Mean Corpuscular Volume 95.1 80-100 fL Mean Corpuscular Hemoglobin 30.8 25-34 pg Mean Corpuscular Hemoglobin Concent 32.3 32-36 g/dl Platelet Count 277 130-400 K/uL Mean Platelet Volume 10.2 7.4-10.4 fL Neutrophils (%) (Auto) 82.2 % Lymphocytes (%) (Auto) 8.9 % Monocytes (%) (Auto) 7.8 % Eosinophils (%) (Auto) 0.5 % Basophils (%) (Auto) 0.2 % Neutrophils # (Auto) 18.69 1.4-6.5 K/uL Lymphocytes # (Auto) 2.02 1.2-3.4 K/uL Monocytes # (Auto) 1.78 0.11-0.59 K/uL Eosinophils # (Auto) 0.11 0-0.5 K/uL Basophils # (Auto) 0.04 0-0.2 K/uL RDW Standard Deviation 47.0 36.4-46.3 fL RDW Coefficient of Variation 13.6 11.5-14.5 % Immature Granulocyte % (Auto) 0.4 % Immature Granulocyte # (Auto) 0.09 0.00-0.02 K/uL Venous Blood pH 7.37 7.36-7.41 Venous Blood Partial Pressure CO2 57 38.0-50.0 mmHg Venous Blood Partial Pressure O2 56 mmHg Venous Blood HCO3 33 mmol/L Venous Blood Oxygen Saturation 84.9 % Venous Blood Base Excess 5.8 mEq/L Sodium Level 137 136-145 mmol/L Potassium Level 3.7 3.5-5.1 mmol/L Chloride Level 99 98-107 mmol/L Carbon Dioxide Level 33 21-32 mmol/L Anion Gap 5.0 17.0 16-25 mmol/L Blood Urea Nitrogen 17 7-18 mg/dl Creatinine 0.78 0.60-1.20 mg/dl Est Creatinine Clear Calc Drug Dose 39.0 ml/min Estimated GFR () 79.8 Estimated GFR (Non- 68.8 BUN/Creatinine Ratio 21.6 10-20 Random Glucose 138 70-99 mg/dl Calcium Level 8.9 8.5-10.1 mg/dl Total Creatine Kinase 43 26-192 U/L Creatine Kinase MB 2.2 0.5-3.6 ng/ml Creatine Kinase MB Ratio 5.1 0-3.0 Troponin I 0.016 0-0.045 ng/ml Pro-B-Type Natriuretic Peptide 809 0-1800 pg/ml Bedside Hemoglobin 13.9 12.0-16.0 g/dl Bedside Hematocrit 41 37-47 % Bedside Sodium 138 135-144 mEq/L Bedside Potassium 3.7 3.3-5.0 mEq/L Bedside Chloride 95 101-112 mEq/L Bedside Total CO2 30 24-31 mEq/l Bedside Blood Urea Nitrogen 18 7-18 mg/dl Bedside Creatinine 0.8 0.6-1.3 mg/dl Bedside Glucose (other) 139 70-99 mg/dl Bedside Ionized Calcium (Beulah) 1.17 1.12-1.32 mmol/l Microbiology Results 03/16/17 Blood Culture, Received Pending 03/16/17 Blood Culture, Received Pending Diagnostic Radiology CHEST ONE VIEW PORTABLE HISTORY: 87 years-old Female SHOB acute shortness of breath with respiratory distress COMPARISON: Chest radiograph 12/05/2016 TECHNIQUE: Portable upright AP view of the chest FINDINGS: Cardiac silhouette is mildly enlarged, unchanged. Coronary vascular congestion is again noted. Prosthetic cardiac valve. Atherosclerosis of the aorta. Pulmonary vascular congestion with background interstitial coarsening. Trace fluid tracks along the minor fissure. Small bilateral pleural effusions, slightly increased in size on the right with hazy bibasilar opacities. No pneumothorax. The bones are grossly intact. IMPRESSION: 1. Cardiomegaly with pulmonary vascular congestion and background interstitial coarsening suspicious for mild pulmonary edema. 2. Small bilateral pleural effusions with bibasilar opacities suggesting atelectasis. EKG Atrial fibrillation ,Non-specific intra-ventricular conduction delay ST & T wave abnormality Impression Assessment and Plan This is a 87 yo F with Hx of COPD on home O2 3-4 L NC, on prednisone 5mg daily at home. with multiple recent admissions for 10/02 and 10/29 for Dyspnea., Hx of Severe Aortic Stenosis s/p TAVR (09/2016) Hx of Atrial Fibrillation on Diltazem 360 mg daily , Eliquis, diastolic congestive heart failure presenting with progressive SOB, Leukocytosis Bibasilar opacities on CXR. Dyspnea, Acute on Chroninc Resp Failure likely secondary to combination of COPD, Diastolic CHF. -CXR, showing bibasilar opacities -Pneumonia also considered given Leukocytosis, however this may be secondary to home prednisone use. patient has been afebrile -BIPAP during ED stay, weaned to 5L NC on admission, maintaining saturation, Continue to follow -Given IV Solu-medrol 80 mg IV in ED -Start Solu-medrol 40 mg q8 -Scheduled/PRN Nebulizer treatment with Xopenex -Restart home dosing of Lasix -Given Levaquin, Aztreonam empirically in ED -Continue Levaquin IV q48H F/u Blood cx's Paroxysmal Atrial Fibrillation with RVR - Rate Control: -Given Cardizem Drip In ED (10 mg IV) -Start PO Cardizem 120 mg q8 -Cardiology consulted - Anticoagulation with Eliquis -Started on Digoxin per Cardiology Severe Aortic Stenosis s/p TAVR - stable, functioning properly per cardiology DVT Prophylaxis: -already on Eliquis Code Status; DNR ADDENDUM -D-dimer Positive -Ordered VQ Scan due to Contrast allergy -F/u results Level of Care Telemetry Resuscitation Status DO NOT RESUSCITATE VTE Prophylaxis VTE Risk Assessment Done? Y/N: Yes Risk Level: Moderate Given or contraindicated: Other Anticoagulation (Eliquis) Social Service Consult >80 yr.& Lives Alone Resident Tracking Resident Involvement: Resident Care Provided Care Provided: Adult Hospital Medicine
[2017-03-16] MEDS: DILTIAZEM SR 60 MG CAP PO SCH ×2 (11:12→19:13)
[2017-03-16] MEDS ORDERED: NURSING VERBAL MED ORDER ONE ×2 (11:30→13:00)
[2017-03-16 11:57] LABS: PROTHROMBIN TIME (PATIENT) 10.7 SECONDS (9.0-12.0)
[2017-03-16] MEDS ORDERED: ALBUT/IPRATROP 3MG/0.5MG NEB 3 ML VIAL INH SCH (12:00)
--- NOTE | 2017-03-16 12:23 | Cardiology Consultation ---
Cardiology Consultation Date of Consultation: Mar 16, 2017. Requesting Physician: Dr. Medeiros Reason for Consultation: SOB Pt evaluation today including: conversation w/ patient, physical exam, lab review, review of studies, review of inpatient medication list History of Present Illness This is an 86-year-old woman who has a history of permanent atrial fibrillation , long-standing severe lung disease, critical aortic stenosis for which she had a TAVR on 10/18/2016 at [facility]. She has a history of left ventricular hypertrophy and diastolic dysfunction, she has had admissions for decompensated diastolic congestive heart failure. She was last admitted in October 2016 with shortness of breath, echocardiography showed normal left ventricular size and function with ejection fraction of 55-60% and a properly functioning bioprosthetic aortic valve. She did have elevated right ventricular systolic pressures of 40-50 mmHg. Although congestive heart failure was entertained it seems on review of that admission that it was primarily lung disease causing her shortness of breath. She now presents with severe shortness of breath for at least several days in duration, she is here with her aide who corroborates her description. As long as she sits very still she is not too short of breath, but any activity causes severe shortness of breath. Ultimately she called 911, who found her to be hypoxic and in respiratory distress. She came to the emergency room, was treated with BiPAP and currently feels much better and is on nasal O2. She denies chest discomfort, she was aware of palpitations and a rapid heart rate ( she tells me her heart rate is always fast). Past Medical/Surgical History (1) Benign hypertension (2) Humeral head fracture (3) Right humeral fracture (4) Kidney disease (5) SOB (shortness of breath) (6) Critical stenosis of aortic valve (7) Atrial fibrillation with RVR Family History Heart disease Hypertension Social History Smoking Status: Former Smoker History of Alcohol Use: No Review of Systems Constitutional: No fever, No weight loss, No weakness Respiratory: + shortness of breath, + dyspnea on exertion, No cough, No wheezing Cardiac: No chest pain, No orthopnea, No PND, No edema, No palpitations Abdomen: No pain, No nausea, No vomiting, No diarrhea, No GI bleeding Female : No problem reported Neurologic: No paralysis, No weakness, No numbness/tingling, No balance problems Heme: No abnormal bleeding/bruising, No clotting problems Endo: No fatigue Skin: No problem reported All Other Systems: Reviewed and Negative Allergies Coded Allergies: Clonidine (Verified Allergy, Mild, SHORTNESS OF BREATH, 09/23/16) Iodinated Diagnostic Agents (Verified Allergy, Unknown, "IT JUST AFFECTS ME AND I CAN'T EXPLAIN IT", 09/23/16) Latex1 -Allergic Contact Dermititis (Verified Allergy, Unknown, RASH, ) Penicillins (Verified Allergy, Unknown, UNKNOWN, 09/23/16) Sulfa Antibiotics (Verified Allergy, Unknown, "SWELLING IN MOUTH AND DRIED OUT", 09/23/16) Medications Current Inpatient Medications Medications (Trade) Dose Ordered Sig/Yared Route Start Time Stop Time Status Last Admin Dose Admin Acetaminophen (Tylenol Tab) 650 mg Q4H PRN PO 03/16/17 08:45 04/15/17 08:44 Al Hydrox/Mg Hydrox/Simethicone (Maalox Max Susp) 15 ml Q4H PRN PO 03/16/17 08:45 04/15/17 08:44 Magnesium Hydroxide (Milk Of Magnesia Susp) 30 ml Q12H PRN PO 03/16/17 08:45 04/15/17 08:44 Ondansetron HCl (Zofran Inj) 4 mg Q6H PRN IV 03/16/17 08:45 04/15/17 08:44 Polyethylene (Miralax Powder Packet) 17 gm DAILY PRN PO 03/16/17 08:45 04/15/17 08:44 Apixaban (Eliquis Tab) 2.5 mg BID PO 03/16/17 09:00 04/15/17 08:59 UNV Aspirin (Ecotrin Tab) 81 mg Q24H PO 03/16/17 08:45 04/15/17 08:44 UNV Docusate Sodium (coLACE CAP) 100 mg TID PRN PO 03/16/17 08:45 04/15/17 08:44 UNV Furosemide (Lasix Tab) 40 mg UD PO 03/16/17 08:45 04/15/17 08:44 UNV Levothyroxine Sodium (Synthroid Tab) 75 mcg QAM PO 03/16/17 09:00 04/15/17 08:59 UNV Non-Formulary Medication (Fluticasone Furoate-Vilanterol (Breo Ellipta)) 1 inha DAILY PO 03/16/17 09:00 04/15/17 08:59 UNV Methylprednisolone Sodium Succinate 40 mg/Syringe 0.64 ml @ 1.5 mls/min Q8H IV 03/16/17 12:00 04/15/17 11:59 UNV Levofloxacin 750 mg/Prmx 150 ml @ 100 mls/hr Q48H IV 03/16/17 09:15 03/23/17 09:14 UNV Diltiazem HCl (Cardizem Sr) 120 mg Q8H PO 03/16/17 11:00 04/15/17 10:59 03/16/17 11:12 120 MG Miscellaneous (Xopenex/ Atrovent Neb) 1 ea Q6R INH 03/16/17 15:00 04/15/17 14:59 UNV Miscellaneous Information (Nursing Verbal Med Order) 1 ea ONE ONCE N/A 03/16/17 11:30 03/16/17 11:31 UNV Physical Exam Vital Signs Past 12 Hours Date Time Temp Pulse Resp B/P (MAP) Pulse Ox O2 Delivery O2 Flow Rate FiO2 03/16/17 10:42 36.8 120 22 150/90 92 Nasal Cannula 5.0 03/16/17 09:41 110 28 110/83 99 03/16/17 09:34 124 03/16/17 09:29 116 28 110/83 100 Room Air 60 03/16/17 08:30 104 30 125/64 97 BiPAP 60 03/16/17 08:00 116 28 118/75 99 BiPAP 60 03/16/17 07:45 110 30 123/63 99 BiPAP 60 03/16/17 07:27 108 30 98 BiPAP 60 03/16/17 07:15 138 30 139/62 99 BiPAP 60 03/16/17 07:05 99 CPAP 60 03/16/17 06:48 120 22 142/81 100 CPAP 03/16/17 06:29 126 24 161/94 100 CPAP 03/16/17 06:23 103 03/16/17 06:14 92 97 60 03/16/17 06:01 37.3 90 26 125/110 96 CPAP 03/16/17 06:01 99 CPAP Constitutional: Level of Distress: mild distress Psychiatric: Mental Status: active & alert Head: normocephalic Eyes: EOM: EOMI ENMT: normal ENT inspection, pertinent finding (very hard of hearing) Neck: supple, no masses Lungs: Auscultation: no wheezing, decreased breath sounds (bilaterally) Cardiovascular: Heart Auscultation: no rubs, no gallops, tachycardia, II/ RAYSHAWN, irregular rate rhythm Peripheral Pulses: Bruits: none appreciated Abdomen: Bowel Sounds: normal Inspection & Palpation: soft, no tenderness, guarding & rebound, no masses Musculoskeletal: normal strength (5/5 throughout) Extremities: no edema Neurologic: Cranial Nerves: grossly intact Sensation: grossly intact Data Laboratory Results: Last 24 Hours Test 03/16/17 06:12 03/16/17 06:32 03/16/17 11:07 03/16/17 11:23 White Blood Count 22.73 K/uL Red Blood Count 4.26 M/uL Hemoglobin 13.1 g/dL Hematocrit 40.5 % Mean Corpuscular Volume 95.1 fL Mean Corpuscular Hemoglobin 30.8 pg Mean Corpuscular Hemoglobin Concent 32.3 g/dl Platelet Count 277 K/uL Mean Platelet Volume 10.2 fL Neutrophils (%) (Auto) 82.2 % Lymphocytes (%) (Auto) 8.9 % Monocytes (%) (Auto) 7.8 % Eosinophils (%) (Auto) 0.5 % Basophils (%) (Auto) 0.2 % Neutrophils # (Auto) 18.69 K/uL Lymphocytes # (Auto) 2.02 K/uL Monocytes # (Auto) 1.78 K/uL Eosinophils # (Auto) 0.11 K/uL Basophils # (Auto) 0.04 K/uL RDW Standard Deviation 47.0 fL RDW Coefficient of Variation 13.6 % Immature Granulocyte % (Auto) 0.4 % Immature Granulocyte # (Auto) 0.09 K/uL Venous Blood pH 7.37 Venous Blood Partial Pressure CO2 57 mmHg Venous Blood Partial Pressure O2 56 mmHg Venous Blood HCO3 33 mmol/L Venous Blood Oxygen Saturation 84.9 % Venous Blood Base Excess 5.8 mEq/L Sodium Level 137 mmol/L Potassium Level 3.7 mmol/L Chloride Level 99 mmol/L Carbon Dioxide Level 33 mmol/L Anion Gap 5.0 mmol/L 17.0 mmol/L Blood Urea Nitrogen 17 mg/dl Creatinine 0.78 mg/dl Est Creatinine Clear Calc Drug Dose 39.0 ml/min Estimated GFR () 79.8 Estimated GFR (Non- 68.8 BUN/Creatinine Ratio 21.6 Random Glucose 138 mg/dl Calcium Level 8.9 mg/dl Total Creatine Kinase 43 U/L Creatine Kinase MB 2.2 ng/ml Creatine Kinase MB Ratio 5.1 Troponin I 0.016 ng/ml Pro-B-Type Natriuretic Peptide 809 pg/ml Bedside Hemoglobin 13.9 g/dl Bedside Hematocrit 41 % Bedside Sodium 138 mEq/L Bedside Potassium 3.7 mEq/L Bedside Chloride 95 mEq/L Bedside Total CO2 30 mEq/l Bedside Blood Urea Nitrogen 18 mg/dl Bedside Creatinine 0.8 mg/dl Bedside Glucose (other) 139 mg/dl Bedside Ionized Calcium ([place]) 1.17 mmol/l Imaging: Probable heart failure, right greater than left EKG: Atrial fibrillation and rapid ventricular response, no acute changes Telemetry reviewed: Atrial fibrillation with a rapid heart rate, averaging 120- 130 bpm Assessment & Plan #1. Shortness of breath: I suspect there is a component of congestive heart failure, possibly triggering respiratory distress. I suspect there is also a component of her lung disease area she is doing much better now, I don't know that she is diuresed much although she did receive Lasix. I would continue gentle diuresis, I don't think she has a lot of fluid and dehydration may result in a decreased cardiac output with her diastolic dysfunction. On exam her valve appears to be functioning well and I don't think we need to repeat the echocardiogram. #2. Atrial fibrillation: She has atrial fibrillation and a rapid ventricular response, she is on diltiazem as an outpatient. Part of that may be high catecholamines state due to her respiratory distress, and we can't use beta- blockade. I would continue her diltiazem at the current dose, but she may need something more in our options are limited. She had been on digoxin the past, it was stopped for reasons which are not clear to me. I'm going to start low-dose digoxin. Thank you for allowing me to participate in her care.
[2017-03-16] MEDS ORDERED: FUROSEMIDE INJ 40 MG in SYRINGE 0 ML IV SCH (12:30)
[2017-03-16] MEDS ORDERED: DIGOXIN IV 250 MCG in SYRINGE 9 ML IV SCH (12:30)
[2017-03-16] MEDS: ASPIRIN 81 MG ECTAB PO SCH (13:40)
[2017-03-16] MEDS: LEVOTHYROXINE 75 MCG TAB PO SCH (13:40)
[2017-03-16] MEDS: APIXABAN 2.5 MG TAB PO SCH ×2 (13:40→21:55)
[2017-03-16] MEDS ORDERED: INFLUENZA ADMINISTRATION CHARGE ONE (14:00)
[2017-03-16] MEDS ORDERED: INFLUENZA VACCINE HIGH DOSE 65+ 0.5 ML SYR IM. ONE (14:00)
[2017-03-16] MEDS: METHYLPREDNISOLONE IV 40 MG in SYRINGE 0 ML IV SCH ×2 (14:00→21:55)
[2017-03-16] MEDS: LEVALBUTEROL 1.25MG/0.5ML NEB INH SCH ×2 (14:28→19:38)
[2017-03-16] MEDS: IPRATROPIUM BROMIDE NEB SOLN 0.02% 2.5 ML VIAL INH SCH ×2 (14:28→19:38)
[2017-03-16] MEDS ORDERED: LEVALBUTEROL/IPRATROPIUM NEB INH SCH (15:00)
[2017-03-16] MEDS: DIGOXIN 0.125 MG TAB PO SCH (16:25)
[2017-03-17] VITALS (10 sets, daily range): BP systolic 126–168; BP diastolic 61–80; PULSE 66–96; TEMP 36–37.3; O2SAT 92–98
[2017-03-17] MEDS: LEVALBUTEROL 1.25MG/0.5ML NEB INH SCH ×4 (02:53→18:59)
[2017-03-17] MEDS: IPRATROPIUM BROMIDE NEB SOLN 0.02% 2.5 ML VIAL INH SCH ×4 (02:53→18:59)
[2017-03-17] MEDS: DILTIAZEM SR 60 MG CAP PO SCH ×3 (03:18→19:31)
[2017-03-17] MEDS: METHYLPREDNISOLONE IV 40 MG in SYRINGE 0 ML IV SCH ×3 (06:17→21:54)
[2017-03-17 06:43] LABS: BASO % 0.1 %; BASO ABS # 0.01 K/uL (0-0.2); COMPLETE YES; HEMATOCRIT 36.7 % (37-47); IG% 0.4 %; LYMPH % 1.8 %; LYMPH ABS # 0.33 K/uL (1.2-3.4); MEAN CELL VOLUME 93.1 fL (80-100); MEAN CORPUSCULAR HEMOGLOBIN 31.7 pg (25-34); MEAN CORPUSCULAR HGB CONC 34.1 g/dl (32-36); MEAN PLATELET VOLUME 10.5 fL (7.4-10.4); MONO % 3.4 %; NEUT % 94.3 %; PLATELET COUNT 224 K/uL (130-400); RED BLOOD COUNT 3.94 M/uL (4.2-5.4); WHITE BLOOD COUNT 18.64 K/uL (4.8-10.8)
[2017-03-17 07:05] LABS: BUN/CREATININE RATIO 27.4 (10-20); CALCIUM 9.1 mg/dl (8.5-10.1); CREATININE 0.8 mg/dl (0.60-1.20); POTASSIUM 3.7 mmol/L (3.5-5.1)
[2017-03-17] MEDS: ASPIRIN 81 MG ECTAB PO SCH (07:44)
[2017-03-17] MEDS: LEVOTHYROXINE 75 MCG TAB PO SCH (07:44)
[2017-03-17] MEDS: FLUTICASONE FUROATE-VILANTEROL 60 PUFFS INH INH SCH (07:45)
[2017-03-17] MEDS: APIXABAN 2.5 MG TAB PO SCH ×2 (07:46→20:53)
[2017-03-17] MEDS ORDERED: DILTIAZEM HCL 360 MG PO SCH (09:00)
--- NOTE | 2017-03-17 10:56 | Pulmonary Consultation ---
History General Date of Service: Mar 17, 2017. Stated Complaint: Atrial Fibrillation With Rvr, Dyspnea, HPI The patient is a 87 year old female who presents to [facility] with complaints of Atrial Fibrillation With Rvr, Dyspnea,. The patient's primary care provider is Sheila Hurtado M.D.. Ms. Lane severe COPD, aortic stenosis status post TAVR in September 2016, left ventricular hypertrophy, diastolic congestive heart failure, permanent atrial fibrillation on Eliquis who presents with several day history of worsening shortness of breath. She denies any fevers, chills, chest pain, lightheadedness or dizziness. She denies any sick contacts or recent travel. She states that her symptoms are worse with exertion and associated with palpitations. She has had 3 admissions this year for COPD exacerbations and decompensated diastolic heart failure. Last admission being in October 2016. In the ER she was given Solu-Medrol 80 mg IV 1 dose, albuterol/ipratropium nebulizer, Ativan 0.5 mg 1 dose, and rationale 2 g 1 dose, Levaquin 750 mg 1 dose and diltiazem 10 mg 1 dose. Laboratory data shows a white blood cell count of 22, hemoglobin 13.1, platelet count of 277. Chemistry significant for bicarbonate level of 33. Chest x-ray today shows cardiomegaly with pulmonary vascular congestion with increased interstitial markings. There are small bilateral effusions as well as atelectasis. She was admitted for COPD exacerbation. Her current medications include Levaquin 750 mg every 48 hours IV, digoxin 0.125 mg daily, Atrovent 0.5 mg every 6 hours as well as Xopenex 1.25 mg every 6 hours, Solu-Medrol 40 mg every 8 hours, Synthroid 75 g daily, Cardizem 120 mg every 8 hours by mouth, Eliquis 2.5 mg twice a day by mouth, aspirin 81 mg, Lasix 40 mg daily. The patient is immediately Previous radiology reviewed from last admission. Video swallow: No aspiration identified Pulmonary function studies performed 10/28/2015 Spirometry: FEV1 44% severe obstructive ventilatory disease, no clinically significant reversibility Lung volumes: Signs of hyperinflation with a residual volume of 144% DLCO: 28% with DLCO/VA ratio: 71% Echo cardiogram 10/24/2016 LV: EF= 55-60%, RV: mild dilation, TAPSE <1.6cm RA: mildly dilated MV: Mild regurgitation RVSP: 40-50mmHg Historian: patient, other (EMR) Review of Systems Constitutional: No fever, No weight loss, No weakness Respiratory: + shortness of breath, + dyspnea on exertion, No cough, No wheezing Cardiac: No chest pain, No orthopnea, No PND, No edema, No palpitations Abdomen: No pain, No nausea, No vomiting, No diarrhea, No GI bleeding Female : No problem reported Neurologic: No paralysis, No weakness, No numbness/tingling, No balance problems Heme: No abnormal bleeding/bruising, No clotting problems Endo: No fatigue Skin: No problem reported All Other Systems: Reviewed and Negative Constitutional: reports: as stated in HPI Eyes: reports: as stated in HPI ENT: reports: as stated in HPI Cardiovascular: reports: as stated in HPI Respiratory: reports: as stated in HPI Gastrointestinal: reports: as stated in HPI Genitourinary - Female: reports: as stated in HPI Musculoskeletal: reports: as stated in HPI Integumentary: reports: as stated in HPI Neurologic: reports: as stated in HPI Psychiatric: reports: as stated in HPI Endocrine: as stated in HPI Hematologic / Lymphatic: as stated in HPI Allergic / Immunologic: as stated in HPI All Other Symptoms All Other Systems: Reviewed and Negative Past Medical History Past Medical History: 1. CVA in the past. 2. Fracture of the right humerus. 3. Concussion. 4. Skin cancer. 5. History of Eustachian tube dysfunction. Past Surgical History: 1. Cataract surgery. 2. Cystoscopy. Family History Heart disease Hypertension Positive for coronary artery disease, cancer and stroke. Social History Positive for coronary artery disease, cancer and stroke. Hx Tobacco Use In Past Year?: No Smoking Status: Former Smoker Marital status: Housing status: lives alone Occupational Status: retired Immunizations History of Influenza Vaccine: No History of Tetanus Vaccine?: utd History of Hepatitis B Vaccine: No Allergies Coded Allergies: Clonidine (Verified Allergy, Mild, SHORTNESS OF BREATH, 09/23/16) Iodinated Diagnostic Agents (Verified Allergy, Unknown, "IT JUST AFFECTS ME AND I CAN'T EXPLAIN IT", 09/23/16) Latex1 -Allergic Contact Dermititis (Verified Allergy, Unknown, RASH, ) Penicillins (Verified Allergy, Unknown, UNKNOWN, 09/23/16) Sulfa Antibiotics (Verified Allergy, Unknown, "SWELLING IN MOUTH AND DRIED OUT", 09/23/16) Current Medications Reported Home Medications Medications Dose Route/Sig Max Daily Dose Days Date Category Dose Instructions Multi Complete (Multiple Vitamins W/ Minerals) 1 Cap Cap 1 Cap PO DAILY 03/16/17 Reported Lasix (Furosemide) 40 Mg Tab 40 Mg PO UD 03/16/17 Reported Klor-Con M20 (Potassium Chloride) 20 Meq Tabcr 20 Meq PO BID 03/16/17 Reported Prednisone 5 Mg Tab 1.5 Tab PO DAILY 03/16/17 Reported Travatan Z (Travoprost) 0.004 % Bassam 1 Drops OP HS 03/16/17 Reported Eliquis (Apixaban) 2.5 Mg Tab 2.5 Mg PO BID 03/16/17 Reported Combivent Respimat (Ipratropium-Albuterol) 1 Aer Aer 1 Puffs INH QID 03/16/17 Reported Carafate (Sucralfate) 1 Gm Tab 1 Gm PO TID 03/16/17 Reported Breo Ellipta (Fluticasone Furoate-Vilanterol) 1 Inh Inh 1 Inha PO DAILY 03/16/17 Reported Xanax (Alprazolam) 0.25 Mg Tab 0.25 Mg PO Q12 PRN 03/16/17 Reported Vitamin D 61463 Unit (Ergocalciferol) 50,000 Unit Cap 50,000 Inter.unit PO WK 10/23/16 Reported wednesdays Latanoprost 37 Drops/2.5 Ml Soln 1 Drop OPB HS 10/23/16 Reported Ferrous Sulfate 325 Mg Tab 325 Mg PO Q2D 10/23/16 Reported Docusate Sodium 100 Mg Cap 100 Mg PO TID PRN 10/23/16 Reported Aspirin 81 Mg Tab 81 Mg PO Q24H 10/23/16 Reported Diltiazem HCl ER (Diltiazem HCl) 360 Mg Tabcr 360 Mg PO DAILY 10/23/16 Reported Levothyroxine Sodium 75 Mcg Tab 75 Mcg PO QAM 09/13/16 Reported Oxygen Gas 3-4 Liters NA HS 01/03/16 Reported Physical Physical Exam Vital Signs: Date Time Temp Pulse Resp B/P (MAP) Pulse Ox O2 Delivery O2 Flow Rate FiO2 03/17/17 08:00 Nasal Cannula 4.0 03/17/17 07:53 37.3 73 19 129/61 (83) 98 Nasal Cannula 4.0 03/17/17 07:13 85 16 94 Nasal Cannula 4.0 03/17/17 04:00 Nasal Cannula 5.0 03/17/17 03:21 36.3 90 20 158/71 (100) 92 Nasal Cannula 4.0 03/17/17 02:56 90 18 93 Nasal Cannula 4.0 03/16/17 23:59 Nasal Cannula 5.0 03/16/17 23:14 36.4 94 20 149/81 (103) 96 Nasal Cannula 4.0 03/16/17 20:00 Nasal Cannula 5.0 03/16/17 19:43 88 18 97 Nasal Cannula 5.0 03/16/17 19:14 102 123/69 (87) 03/16/17 16:25 104 03/16/17 16:00 98 Nasal Cannula 5.0 03/16/17 15:40 36.7 101 18 130/72 (91) 98 Nasal Cannula 5.0 03/16/17 14:28 88 18 92 Nasal Cannula 5.0 03/16/17 13:03 123 General Appearance: WD/WN, NO APPARENT DISTRESS Head: NORMOCEPHALIC, ATRAUMATIC Eyes: PERRLA, NO DISCHARGE, EOMI, SCLERAE NORMAL ENT: NORMAL NASAL EXAM, NORMAL MOUTH EXAM, NORMAL THROAT EXAM, other (hard of hearing. ) Neck: NORMAL RANGE OF MOTION, NO TENDERNESS, TRACHEA MIDLINE Respiratory: NO RESPIRATORY DISTRESS, NO TENDERNESS, other (decreased breath sounds bilaterally) Cardiovasular: NORMAL S1S2, irregular rate Abdomen: NON TENDER, NORMAL BOWEL SOUNDS, NO REBOUND Back: NORMAL INSPECTION Upper Extremities: NO EDEMA, NO DEFORMITY, NORMAL ROM Lower Extremities: NO EDEMA, NO DEFORMITY, NORMAL ROM, other (no cyanosis, no clubbing) Neuro: ALERT, ORIENTED x 3, NORMAL MOTOR EXAM Psychiatric: NORMAL AFFECT, NO SUICIDAL IDEATION, CONTRACTS FOR SAFETY Diagnostics Labs Last 24 Hours Test 03/16/17 11:07 03/16/17 18:11 03/17/17 05:48 03/17/17 10:46 Troponin I 0.021 ng/ml < 0.015 ng/ml D-Dimer 1030 ug/L FEU White Blood Count 18.64 K/uL Red Blood Count 3.94 M/uL Hemoglobin 12.5 g/dL Hematocrit 36.7 % Mean Corpuscular Volume 93.1 fL Mean Corpuscular Hemoglobin 31.7 pg Mean Corpuscular Hemoglobin Concent 34.1 g/dl Platelet Count 224 K/uL Mean Platelet Volume 10.5 fL Neutrophils (%) (Auto) 94.3 % Lymphocytes (%) (Auto) 1.8 % Monocytes (%) (Auto) 3.4 % Eosinophils (%) (Auto) 0.0 % Basophils (%) (Auto) 0.1 % Neutrophils # (Auto) 17.59 K/uL Lymphocytes # (Auto) 0.33 K/uL Monocytes # (Auto) 0.63 K/uL Eosinophils # (Auto) 0.00 K/uL Basophils # (Auto) 0.01 K/uL RDW Standard Deviation 45.5 fL RDW Coefficient of Variation 13.2 % Immature Granulocyte % (Auto) 0.4 % Immature Granulocyte # (Auto) 0.08 K/uL Sodium Level 135 mmol/L Potassium Level 3.7 mmol/L Chloride Level 98 mmol/L Carbon Dioxide Level 30 mmol/L Anion Gap 7.0 mmol/L Blood Urea Nitrogen 22 mg/dl Creatinine 0.80 mg/dl Est Creatinine Clear Calc Drug Dose 38.1 ml/min Estimated GFR () 77.4 Estimated GFR (Non- 66.8 BUN/Creatinine Ratio 27.4 Random Glucose 183 mg/dl Calcium Level 9.1 mg/dl Microbiology Results 03/16/17 Blood Culture, Received Pending 03/16/17 Blood Culture, Received Pending Diagnostic Radiology CHEST ONE VIEW PORTABLE HISTORY: 87 years-old Female SHOB acute shortness of breath with respiratory distress COMPARISON: Chest radiograph 12/05/2016 TECHNIQUE: Portable upright AP view of the chest FINDINGS: Cardiac silhouette is mildly enlarged, unchanged. Coronary vascular congestion is again noted. Prosthetic cardiac valve. Atherosclerosis of the aorta. Pulmonary vascular congestion with background interstitial coarsening. Trace fluid tracks along the minor fissure. Small bilateral pleural effusions, slightly increased in size on the right with hazy bibasilar opacities. No pneumothorax. The bones are grossly intact. IMPRESSION: 1. Cardiomegaly with pulmonary vascular congestion and background interstitial coarsening suspicious for mild pulmonary edema. 2. Small bilateral pleural effusions with bibasilar opacities suggesting atelectasis. EKG Atrial fibrillation with rapid ventricular rate. Impression Assessment and Plan Acute on chronic hypoxic hypercapnic respiratory failure Severe COPD Pulmonary hypertension, likely both group 2 and 3 obstructive sleep apnea Leukocytosis. Patient appears to have acute on chronic hypoxic respiratory failure this is mostly multifactorial in nature. She has components of severe COPD, diastolic dysfunction and atrial fibrillation which are most likely contributing. She also has elevated white blood cell count so she may have an infectious etiology present as well. At the current time I do agree with antibiotics. Obtain a sputum culture. Continue with nebulizers every 4-6 hours when necessary. She does have pulmonary hypertension most likely secondary to both group 2 and 3 as stated above. I would optimize her heart rate and blood pressure as this can precipitate worsened diastolic dysfunction. Diuresis tolerated. Cardiology is on board and following. Continue supplemental oxygen to maintain SaO2 between 88-92%. Use BiPAP when necessary. I would be judicious with sedatives as this can precipitate worsening CO2 until asthma COPD and obstructive sleep apnea. I appreciate the consult. Please contact me if you've any further questions or concerns.
--- NOTE | 2017-03-17 14:24 | DIAGNOSTIC IMAGING REPORT ---
VENOUS DOPPLER LWR EXT BILA HISTORY: Pain. Edema. r/o blood clot COMPARISON STUDY: None. FINDINGS: There is normal compressibility, flow, and augmentation within the bilateral lower extremity deep venous systems. IMPRESSION: No DVT within the right or left lower extremity. The above report was generated using voice recognition software. It may contain grammatical, syntax or spelling errors. Electronically signed by: Fred Metzger M.D. 03/17/2017 2:22 PM Dictated Date/Time: 03/17/2017 2:22 PM
--- NOTE | 2017-03-17 14:26 | DIAGNOSTIC IMAGING REPORT ---
LUNG IMAGING VQ CLINICAL HISTORY: Elevated d-dimer. Chest pain. Dyspnea. COMPARISON: None TECHNIQUE: For the ventilation portion of this exam, 31.5 mCi of DTPA was inhaled at 1:30. Immediately following inhalation, imaging of the chest was carried out in the anterior, posterior, left lateral, right lateral, LPO, RPO, CASH and GORE projections. For the perfusion portion of exam, 5.5 mCi of technetium 99m MAA was injected IV at 150. Immediately following injection, imaging of the chest was carried out in the same projections. FINDINGS: Diffuse central air trapping consistent with emphysematous change. Heterogeneous perfusion characteristics throughout both hemithoraces. A significant ventilation/perfusion mismatch is not seen, although the study is technically indeterminate for pulmonary embolus given the central air trapping present. IMPRESSION: Indeterminate for pulmonary embolus. Chronic obstructive change. The above report was generated using voice recognition software. It may contain grammatical, syntax or spelling errors. Electronically signed by: Fred Metzger M.D. 03/17/2017 2:24 PM Dictated Date/Time: 03/17/2017 2:23 PM
--- NOTE | 2017-03-17 16:09 | Family Medicine Progress Note ---
Progress Note Date of Service Mar 17, 2017. Subjective Pt evaluation today including: conversation w/ patient, physical exam, chart review, lab review, review of studies, review of inpatient medication list Pain: denies PO Intake: adequatw Voiding: no voiding problems No acute events overnight. Patient weaned down to 4 L and saturating well. Patient reports feeling significantly better. She denies CP, SOB, cough, abdominal pain, N/V, diarrhea Constitutional: No fever, No chills, No weakness ENT: No nasal symptoms, No sore throat Respiratory: + shortness of breath (improved), No cough, No sputum Cardiovascular: No chest pain, No edema, No palpitations Abdomen: No pain, No nausea, No vomiting, No diarrhea, No constipation Musculoskeletal: No swelling, No calf pain Female : No dysuria, No urinary frequency Skin: No rash, No itch Medications Current Inpatient Medications Medications (Trade) Dose Ordered Sig/Yared Route Start Time Stop Time Status Last Admin Dose Admin Acetaminophen (Tylenol Tab) 650 mg Q4H PRN PO 03/16/17 08:45 04/15/17 08:44 Al Hydrox/Mg Hydrox/Simethicone (Maalox Max Susp) 15 ml Q4H PRN PO 03/16/17 08:45 04/15/17 08:44 Magnesium Hydroxide (Milk Of Magnesia Susp) 30 ml Q12H PRN PO 03/16/17 08:45 04/15/17 08:44 Ondansetron HCl (Zofran Inj) 4 mg Q6H PRN IV 03/16/17 08:45 04/15/17 08:44 Polyethylene (Miralax Powder Packet) 17 gm DAILY PRN PO 03/16/17 08:45 04/15/17 08:44 03/17/17 16:41 17 GM Apixaban (Eliquis Tab) 2.5 mg BID PO 03/16/17 09:00 04/15/17 08:59 03/17/17 07:46 2.5 MG Aspirin (Ecotrin Tab) 81 mg Q24H PO 03/16/17 08:45 04/15/17 08:44 03/17/17 07:44 81 MG Docusate Sodium (coLACE CAP) 100 mg TID PRN PO 03/16/17 08:45 04/15/17 08:44 Furosemide (Lasix Tab) 40 mg UD PO 03/16/17 08:45 04/15/17 08:44 Levothyroxine Sodium (Synthroid Tab) 75 mcg QDB PO 03/16/17 13:00 04/15/17 12:59 03/17/17 07:44 75 MCG Methylprednisolone Sodium Succinate 40 mg/Syringe 0.64 ml @ 1.5 mls/min Q8H IV 03/16/17 14:00 04/15/17 13:59 03/17/17 14:29 1.5 MLS/MIN Levofloxacin 750 mg/Prmx 150 ml @ 100 mls/hr Q48H IV 03/18/17 06:00 03/23/17 05:59 Diltiazem HCl (Cardizem Sr) 120 mg Q8H PO 03/16/17 11:00 04/15/17 10:59 03/17/17 11:43 120 MG Ipratropium [place] (Atrovent 0.02% 0.5MG/2.5ML Neb) 0.5 mg Q6R INH 03/16/17 15:00 04/15/17 14:59 03/17/17 14:36 0.5 MG Levalbuterol (Xopenex 1.25MG/ 0.5ML Neb) 1.25 mg Q6R INH 03/16/17 15:00 04/15/17 14:59 03/17/17 14:36 1.25 MG Digoxin (Lanoxin Tab) 0.125 mg DAILY@16 PO 03/16/17 16:00 04/15/17 15:59 03/17/17 16:41 0.125 MG Fluticasone/ Vilanterol (Breo Ellipta 100-25 Mcg/Inh) 1 puffs DAILY INH 03/17/17 09:00 04/16/17 08:59 Objective Vital Signs Date Time Temp Pulse Resp B/P (MAP) Pulse Ox O2 Delivery O2 Flow Rate FiO2 03/17/17 16:41 88 03/17/17 16:00 Nasal Cannula 4.0 03/17/17 15:40 36.6 88 24 143/80 (101) 96 Nasal Cannula 4.0 03/17/17 14:38 85 16 95 Nasal Cannula 4.0 03/17/17 12:09 Nasal Cannula 4.0 03/17/17 11:43 36.5 85 19 131/69 (89) 92 Nasal Cannula 5.0 03/17/17 08:00 Nasal Cannula 4.0 03/17/17 07:53 37.3 73 19 129/61 (83) 98 Nasal Cannula 4.0 03/17/17 07:13 85 16 94 Nasal Cannula 4.0 03/17/17 04:00 Nasal Cannula 5.0 03/17/17 03:21 36.3 90 20 158/71 (100) 92 Nasal Cannula 4.0 03/17/17 02:56 90 18 93 Nasal Cannula 4.0 03/16/17 23:59 Nasal Cannula 5.0 03/16/17 23:14 36.4 94 20 149/81 (103) 96 Nasal Cannula 4.0 03/16/17 20:00 Nasal Cannula 5.0 03/16/17 19:43 88 18 97 Nasal Cannula 5.0 03/16/17 19:14 102 123/69 (87) Physical Exam General Appearance: WD/WN, no apparent distress Eyes: normal inspection, PERRL, EOMI Neck: supple, no adenopathy, trachea midline Respiratory/Chest: lungs clear, normal breath sounds, no respiratory distress Cardiovascular: regular rate, rhythm, no edema, no murmur Abdomen: normal bowel sounds, non tender, soft Extremities: non-tender, no pedal edema, no calf tenderness Neurologic/Psychiatric: alert, normal mood/affect, oriented x 3 Skin: normal color, warm/dry, no rash Laboratory Results Results Past 24 Hours Test 03/16/17 18:11 03/17/17 05:48 03/17/17 11:12 Range/Units D-Dimer 1030 0-500 ug/L FEU Troponin I < 0.015 0-0.045 ng/ml White Blood Count 18.64 4.8-10.8 K/uL Red Blood Count 3.94 4.2-5.4 M/uL Hemoglobin 12.5 12.0-16.0 g/dL Hematocrit 36.7 37-47 % Mean Corpuscular Volume 93.1 80-100 fL Mean Corpuscular Hemoglobin 31.7 25-34 pg Mean Corpuscular Hemoglobin Concent 34.1 32-36 g/dl Platelet Count 224 130-400 K/uL Mean Platelet Volume 10.5 7.4-10.4 fL Neutrophils (%) (Auto) 94.3 % Lymphocytes (%) (Auto) 1.8 % Monocytes (%) (Auto) 3.4 % Eosinophils (%) (Auto) 0.0 % Basophils (%) (Auto) 0.1 % Neutrophils # (Auto) 17.59 1.4-6.5 K/uL Lymphocytes # (Auto) 0.33 1.2-3.4 K/uL Monocytes # (Auto) 0.63 0.11-0.59 K/uL Eosinophils # (Auto) 0.00 0-0.5 K/uL Basophils # (Auto) 0.01 0-0.2 K/uL RDW Standard Deviation 45.5 36.4-46.3 fL RDW Coefficient of Variation 13.2 11.5-14.5 % Immature Granulocyte % (Auto) 0.4 % Immature Granulocyte # (Auto) 0.08 0.00-0.02 K/uL Sodium Level 135 136-145 mmol/L Potassium Level 3.7 3.5-5.1 mmol/L Chloride Level 98 98-107 mmol/L Carbon Dioxide Level 30 21-32 mmol/L Anion Gap 7.0 3-11 mmol/L Blood Urea Nitrogen 22 7-18 mg/dl Creatinine 0.80 0.60-1.20 mg/dl Est Creatinine Clear Calc Drug Dose 38.1 ml/min Estimated GFR () 77.4 Estimated GFR (Non- 66.8 BUN/Creatinine Ratio 27.4 10-20 Random Glucose 183 70-99 mg/dl Calcium Level 9.1 8.5-10.1 mg/dl Erythrocyte Sedimentation Rate 9 0-21 mm/hr C-Reactive Protein 6.85 0-0.29 mg/dl Procalcitonin < 0.05 0-0.5 ng/ml Assessment and Plan This is a 87 yo F with Hx of COPD on home O2 3-4 L NC, on prednisone 5mg daily at home. with multiple recent admissions for 10/02 and 10/29 for Dyspnea., Hx of Severe Aortic Stenosis s/p TAVR (09/2016) Hx of Atrial Fibrillation on Diltazem 360 mg daily , Eliquis, diastolic congestive heart failure presenting with progressive SOB, Leukocytosis Bibasilar opacities on CXR. Dyspnea, Acute on Chronic Resp Failure likely secondary to combination of COPD, Diastolic CHF. -CXR, showing bibasilar opacities -Pneumonia also considered given Leukocytosis, however this may be secondary to home prednisone use. patient has been afebrile -BIPAP during ED stay, weaned to 5L NC on admission, maintaining saturation, Continue to follow -Given IV Solu-medrol 80 mg IV in ED -Start Solu-medrol 40 mg q8 -Scheduled/PRN Nebulizer treatment with Xopenex -Restarted home dosing of Lasix -Given Levaquin, Aztreonam empirically in ED -Continue Levaquin IV q48H, -Elevated D-Dimer, NO evidence of PE on VQ scan - F/u Blood cx's at 48 hrs -F/u Procalcitonin, ESR, CRP -per Pulmonology Goal for saturation is 88%-92% Paroxysmal Atrial Fibrillation with RVR - Rate Control: -Given Cardizem Drip In ED (10 mg IV) -Continue PO Cardizem 120 mg q8 -Cardiology consulted - Anticoagulation with Eliquis -Started on Digoxin per Cardiology Severe Aortic Stenosis s/p TAVR - stable, functioning properly per cardiology DVT Prophylaxis: -already on Eliquis Code Status; DNR Discussed previous entry into hospice. Patient's expressed resistance to hospice and would like out of it Continued [facility] stay due to: multiple IV medications needed Discharge planning: home Resident Tracking Resident Involvement: Resident Care Provided Care Provided: Adult Hospital Medicine
[2017-03-17] MEDS: POLYETHYLENE (MIRALAX) 17 GM PACK PO PRN (16:41)
[2017-03-17] MEDS: DIGOXIN 0.125 MG TAB PO SCH (16:41)
[2017-03-17] MEDS: DOCUSATE SODIUM 100 MG CAP PO PRN (17:27)
[2017-03-18] VITALS (10 sets, daily range): BP systolic 135–165; BP diastolic 62–76; PULSE 69–105; TEMP 36.6–36.9; O2SAT 92–98
[2017-03-18] MEDS: IPRATROPIUM BROMIDE NEB SOLN 0.02% 2.5 ML VIAL INH SCH ×4 (02:04→19:06)
[2017-03-18] MEDS: LEVALBUTEROL 1.25MG/0.5ML NEB INH SCH ×4 (02:04→19:07)
[2017-03-18] MEDS: DILTIAZEM SR 60 MG CAP PO SCH ×3 (03:00→20:21)
[2017-03-18] MEDS ORDERED: LEVOFLOXACIN / D5W 750 MG in PREMIXED IN D5W 150 ML IV SCH (06:00)
[2017-03-18] MEDS: METHYLPREDNISOLONE IV 40 MG in SYRINGE 0 ML IV SCH ×3 (06:03→21:27)
[2017-03-18 07:20] LABS: COMPLETE YES; IG% 0.3 %; LYMPH % 1.6 %; LYMPH ABS # 0.29 K/uL (1.2-3.4); MEAN CELL VOLUME 94.6 fL (80-100); MEAN CORPUSCULAR HEMOGLOBIN 31.4 pg (25-34); MEAN CORPUSCULAR HGB CONC 33.1 g/dl (32-36); MEAN PLATELET VOLUME 9.9 fL (7.4-10.4); MONO % 2.5 %; NEUT % 95.6 %; PLATELET COUNT 211 K/uL (130-400); WHITE BLOOD COUNT 17.99 K/uL (4.8-10.8)
[2017-03-18 07:54] LABS: BUN/CREATININE RATIO 31.7 (10-20); CREATININE 0.84 mg/dl (0.60-1.20); POTASSIUM 4.2 mmol/L (3.5-5.1)
[2017-03-18] MEDS: APIXABAN 2.5 MG TAB PO SCH ×2 (08:28→20:20)
[2017-03-18] MEDS: LEVOTHYROXINE 75 MCG TAB PO SCH (08:28)
[2017-03-18] MEDS: ASPIRIN 81 MG ECTAB PO SCH (08:28)
[2017-03-18] MEDS: FLUTICASONE FUROATE-VILANTEROL 60 PUFFS INH INH SCH (08:29)
[2017-03-18] MEDS: DOCUSATE SODIUM 100 MG CAP PO PRN ×2 (08:31→17:54)
[2017-03-18] MEDS: DIGOXIN 0.125 MG TAB PO SCH (15:17)
[2017-03-18] MEDS ORDERED: NURSING DECISION MEDICATION ORDER SCH (16:15)
--- NOTE | 2017-03-18 16:21 | Pulmonology Progress Note ---
Pulmonary Progress Note Date of Service Mar 18, 2017. Attending Dr. Mejia Subjective Patient seen and examined. Currently eating lunch. Less irritable than yesterday. She is still complaining of dyspnea on exertion. She does have intermittent wheezes that improve with nebulizers. She denies any chest pain or chest tightness. She is complaining that housing development of "killed" her lungs. She does not think that she has COPD because she stopped smoking in the 70s and was fully functional running several miles a day and swimming before moving into the housing complex. She feels they are responsible for her illness. Objective Gen.: Awake alert oriented 3, no acute respiratory distress, speaking in full sentences without use of accessory muscles of respiration CVS: S1-S2 regular rate and rhythm grade 2/6 murmur Lungs: Decreased breath sounds bilaterally Abdomen: Soft, nontender, nondistended bowel sounds positive Extremities: No edema, no cyanosis, no clubbing Labs reviewed. Medications reviewed. Imaging reviewed and reviewed by me. LUNG IMAGING VQ CLINICAL HISTORY: Elevated d-dimer. Chest pain. Dyspnea. COMPARISON: None TECHNIQUE: For the ventilation portion of this exam, 31.5 mCi of DTPA was inhaled at 1:30. Immediately following inhalation, imaging of the chest was carried out in the anterior, posterior, left lateral, right lateral, LPO, RPO, CASH and GORE projections. For the perfusion portion of exam, 5.5 mCi of technetium 99m MAA was injected IV at 150. Immediately following injection, imaging of the chest was carried out in the same projections. FINDINGS: Diffuse central air trapping consistent with emphysematous change. Heterogeneous perfusion characteristics throughout both hemithoraces. A significant ventilation/perfusion mismatch is not seen, although the study is technically indeterminate for pulmonary embolus given the central air trapping present. IMPRESSION: Indeterminate for pulmonary embolus. Chronic obstructive change. VENOUS DOPPLER LWR EXT BILA HISTORY: Pain. Edema. r/o blood clot COMPARISON STUDY: None. FINDINGS: There is normal compressibility, flow, and augmentation within the bilateral lower extremity deep venous systems. IMPRESSION: No DVT within the right or left lower extremity. 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 Patient appears to have acute on chronic hypoxic respiratory failure this is mostly multifactorial in nature. She has components of severe COPD, diastolic dysfunction and atrial fibrillation which are most likely contributing. She continues to be dyspneic on exertion. VQ scan indeterminate for PE and lower extremity dopplers are negative for DVT. Continue supplemental oxygen to maintain SaO2 between 88-92%. Taper as tolerated. Use BiPAP when necessary. I would be judicious with sedatives as this can precipitate worsening CO2 until asthma COPD and obstructive sleep apnea. At the current time I do agree with antibiotics.Follow up sputum culture. Send a procalcitionin and deescalate pending resolved. I would switch her over to prednisone 50 mg daily in the morning and taper. Continue with nebulizers every 4-6 hours when necessary. She does have pulmonary hypertension most likely secondary to both group 2 and 3 as stated above. Continue to optimize her heart rate and blood pressure as this can precipitate worsened diastolic dysfunction. Diuresis tolerated. Cardiology is on board and following. Continue with DVT ppx. Continue with Breo, Spiriva and albuterol upon discharge. Pulmonary will continue to follow. Data Medications: Current Inpatient Medications Medications (Trade) Dose Ordered Sig/Yared Route Start Time Stop Time Status Last Admin Dose Admin Acetaminophen (Tylenol Tab) 650 mg Q4H PRN PO 03/16/17 08:45 04/15/17 08:44 Al Hydrox/Mg Hydrox/Simethicone (Maalox Max Susp) 15 ml Q4H PRN PO 03/16/17 08:45 04/15/17 08:44 Magnesium Hydroxide (Milk Of Magnesia Susp) 30 ml Q12H PRN PO 03/16/17 08:45 04/15/17 08:44 Ondansetron HCl (Zofran Inj) 4 mg Q6H PRN IV 03/16/17 08:45 04/15/17 08:44 Polyethylene (Miralax Powder Packet) 17 gm DAILY PRN PO 03/16/17 08:45 04/15/17 08:44 03/17/17 16:41 17 GM Apixaban (Eliquis Tab) 2.5 mg BID PO 03/16/17 09:00 04/15/17 08:59 03/18/17 08:28 2.5 MG Aspirin (Ecotrin Tab) 81 mg Q24H PO 03/16/17 08:45 04/15/17 08:44 03/18/17 08:28 81 MG Docusate Sodium (coLACE CAP) 100 mg TID PRN PO 03/16/17 08:45 04/15/17 08:44 03/18/17 08:31 100 MG Furosemide (Lasix Tab) 40 mg UD PO 03/16/17 08:45 04/15/17 08:44 Levothyroxine Sodium (Synthroid Tab) 75 mcg QDB PO 03/16/17 13:00 04/15/17 12:59 03/18/17 08:28 75 MCG Methylprednisolone Sodium Succinate 40 mg/Syringe 0.64 ml @ 1.5 mls/min Q8H IV 03/16/17 14:00 04/15/17 13:59 03/18/17 15:17 1.5 MLS/MIN Diltiazem HCl (Cardizem Sr) 120 mg Q8H PO 03/16/17 11:00 04/15/17 10:59 03/18/17 11:58 120 MG Ipratropium [place] (Atrovent 0.02% 0.5MG/2.5ML Neb) 0.5 mg Q6R INH 03/16/17 15:00 04/15/17 14:59 03/18/17 14:07 0.5 MG Levalbuterol (Xopenex 1.25MG/ 0.5ML Neb) 1.25 mg Q6R INH 03/16/17 15:00 04/15/17 14:59 03/18/17 14:07 1.25 MG Digoxin (Lanoxin Tab) 0.125 mg DAILY@16 PO 03/16/17 16:00 04/15/17 15:59 03/18/17 15:17 0.125 MG Fluticasone/ Vilanterol (Breo Ellipta 100-25 Mcg/Inh) 1 puffs DAILY INH 03/17/17 09:00 04/16/17 08:59 Levofloxacin (Levaquin Tab) 750 mg Q2D@11 PO 03/20/17 11:00 03/23/17 10:59 I & O: 24-Hour Column 03/19/17 08:00 Intake Total 480 ml Balance 480 ml Vital Signs: Date Time Temp Pulse Resp B/P (MAP) Pulse Ox O2 Delivery O2 Flow Rate FiO2 03/18/17 15:17 99 03/18/17 15:15 36.6 99 20 165/62 (96) 97 Nasal Cannula 6.0 03/18/17 14:08 78 17 96 Nasal Cannula 4.0 03/18/17 12:02 36.7 87 18 135/74 (94) 93 Nasal Cannula 03/18/17 12:00 Nasal Cannula 4.0 03/18/17 08:00 Nasal Cannula 4.0 03/18/17 07:25 36.7 86 18 148/73 (98) 92 Nasal Cannula 4.0 03/18/17 07:08 96 15 93 Nasal Cannula 4.0 03/18/17 04:00 Nasal Cannula 4.0 03/18/17 03:00 36.9 95 20 160/65 (96) 95 Nasal Cannula 4.0 03/18/17 02:07 69 18 93 Nasal Cannula 4.0 03/18/17 00:01 Nasal Cannula 4.0 03/17/17 23:10 36.0 89 16 126/77 (93) 94 Nasal Cannula 4.0 03/17/17 20:00 Nasal Cannula 4.0 03/17/17 19:31 36.7 96 24 168/79 (108) 92 Nasal Cannula 4.0 03/17/17 19:02 66 16 95 Nasal Cannula 4.0 03/17/17 16:41 88 Laboratory Results: Last 24 Hours Test 03/18/17 07:08 White Blood Count 17.99 K/uL Red Blood Count 3.70 M/uL Hemoglobin 11.6 g/dL Hematocrit 35.0 % Mean Corpuscular Volume 94.6 fL Mean Corpuscular Hemoglobin 31.4 pg Mean Corpuscular Hemoglobin Concent 33.1 g/dl Platelet Count 211 K/uL Mean Platelet Volume 9.9 fL Neutrophils (%) (Auto) 95.6 % Lymphocytes (%) (Auto) 1.6 % Monocytes (%) (Auto) 2.5 % Eosinophils (%) (Auto) 0.0 % Basophils (%) (Auto) 0.0 % Neutrophils # (Auto) 17.19 K/uL Lymphocytes # (Auto) 0.29 K/uL Monocytes # (Auto) 0.45 K/uL Eosinophils # (Auto) 0.00 K/uL Basophils # (Auto) 0.00 K/uL RDW Standard Deviation 46.9 fL RDW Coefficient of Variation 13.4 % Immature Granulocyte % (Auto) 0.3 % Immature Granulocyte # (Auto) 0.06 K/uL Sodium Level 137 mmol/L Potassium Level 4.2 mmol/L Chloride Level 100 mmol/L Carbon Dioxide Level 31 mmol/L Anion Gap 6.0 mmol/L Blood Urea Nitrogen 27 mg/dl Creatinine 0.84 mg/dl Est Creatinine Clear Calc Drug Dose 36.3 ml/min Estimated GFR () 72.9 Estimated GFR (Non- 62.9 BUN/Creatinine Ratio 31.7 Random Glucose 167 mg/dl Calcium Level 9.0 mg/dl
[2017-03-18] MEDS ORDERED: SODIUM CHLORIDE 0.65% NA SOLN 45 ML (OCEAN) PRN (16:30)
--- NOTE | 2017-03-18 17:58 | Family Medicine Progress Note ---
Progress Note Date of Service Mar 18, 2017. Subjective Pt evaluation today including: conversation w/ patient, conversation w/ family , physical exam, chart review, lab review, review of studies, review of inpatient medication list Pain: dnies PO Intake: adequate Voiding: no voiding problems No acute events overnight. Patient reports SOB at baseline and also reports non- productive cough She denies Chest pain. Additional Comments: Constitutional: No fever, No chills, No weakness ENT: No nasal symptoms, No sore throat Respiratory: + shortness of breath (at baseline),+ cough, No sputum Cardiovascular: No chest pain, No edema, No palpitations Abdomen: No pain, No nausea, No vomiting, No diarrhea, No constipation Musculoskeletal: No swelling, No calf pain Female : No dysuria, No urinary frequency Skin: No rash, No itch Medications Current Inpatient Medications Medications (Trade) Dose Ordered Sig/Yared Route Start Time Stop Time Status Last Admin Dose Admin Acetaminophen (Tylenol Tab) 650 mg Q4H PRN PO 03/16/17 08:45 04/15/17 08:44 Al Hydrox/Mg Hydrox/Simethicone (Maalox Max Susp) 15 ml Q4H PRN PO 03/16/17 08:45 04/15/17 08:44 Magnesium Hydroxide (Milk Of Magnesia Susp) 30 ml Q12H PRN PO 03/16/17 08:45 04/15/17 08:44 Ondansetron HCl (Zofran Inj) 4 mg Q6H PRN IV 03/16/17 08:45 04/15/17 08:44 Polyethylene (Miralax Powder Packet) 17 gm DAILY PRN PO 03/16/17 08:45 04/15/17 08:44 03/17/17 16:41 17 GM Apixaban (Eliquis Tab) 2.5 mg BID PO 03/16/17 09:00 04/15/17 08:59 03/18/17 20:20 2.5 MG Aspirin (Ecotrin Tab) 81 mg Q24H PO 03/16/17 08:45 04/15/17 08:44 03/18/17 08:28 81 MG Docusate Sodium (coLACE CAP) 100 mg TID PRN PO 03/16/17 08:45 04/15/17 08:44 03/18/17 17:54 100 MG Furosemide (Lasix Tab) 40 mg UD PO 03/16/17 08:45 04/15/17 08:44 Levothyroxine Sodium (Synthroid Tab) 75 mcg QDB PO 03/16/17 13:00 04/15/17 12:59 03/18/17 08:28 75 MCG Methylprednisolone Sodium Succinate 40 mg/Syringe 0.64 ml @ 1.5 mls/min Q8H IV 03/16/17 14:00 04/15/17 13:59 03/18/17 21:27 1.5 MLS/MIN Diltiazem HCl (Cardizem Sr) 120 mg Q8H PO 03/16/17 11:00 04/15/17 10:59 03/19/17 03:37 120 MG Ipratropium [place] (Atrovent 0.02% 0.5MG/2.5ML Neb) 0.5 mg Q6R INH 03/16/17 15:00 04/15/17 14:59 03/19/17 01:53 0.5 MG Levalbuterol (Xopenex 1.25MG/ 0.5ML Neb) 1.25 mg Q6R INH 03/16/17 15:00 04/15/17 14:59 03/19/17 01:54 1.25 MG Digoxin (Lanoxin Tab) 0.125 mg DAILY@16 PO 03/16/17 16:00 04/15/17 15:59 03/18/17 15:17 0.125 MG Fluticasone/ Vilanterol (Breo Ellipta 100-25 Mcg/Inh) 1 puffs DAILY INH 03/17/17 09:00 04/16/17 08:59 Levofloxacin (Levaquin Tab) 750 mg Q2D@11 PO 03/20/17 11:00 03/23/17 10:59 Sodium Chloride ([place] Nasal [place]) 1 sprays PRN PRN NA 03/18/17 16:30 04/17/17 16:29 Objective Vital Signs Date Time Temp Pulse Resp B/P (MAP) Pulse Ox O2 Delivery O2 Flow Rate FiO2 03/19/17 04:00 Nasal Cannula 4.0 03/19/17 03:36 36.3 97 20 154/102 (119) 90 Nasal Cannula 4.0 03/19/17 01:54 72 18 91 Nasal Cannula 4.0 03/18/17 23:59 Nasal Cannula 4.0 03/18/17 23:18 36.6 84 19 137/76 (96) 97 Nasal Cannula 4.0 03/18/17 20:00 Nasal Cannula 4.0 Humidified Oxygen 03/18/17 19:18 36.8 105 20 146/72 (96) 98 Nasal Cannula 4.0 Humidified Oxygen 03/18/17 19:07 71 18 92 Nasal Cannula 4.0 03/18/17 16:00 Nasal Cannula 4.0 03/18/17 15:17 99 03/18/17 15:15 36.6 99 20 165/62 (96) 97 Nasal Cannula 6.0 03/18/17 14:08 78 17 96 Nasal Cannula 4.0 03/18/17 12:02 36.7 87 18 135/74 (94) 93 Nasal Cannula 03/18/17 12:00 Nasal Cannula 4.0 03/18/17 08:00 Nasal Cannula 4.0 03/18/17 07:25 36.7 86 18 148/73 (98) 92 Nasal Cannula 4.0 03/18/17 07:08 96 15 93 Nasal Cannula 4.0 Physical Exam Notes: General Appearance: WD/WN, no apparent distress Eyes: normal inspection, PERRL, EOMI Neck: supple, no adenopathy, trachea midline Respiratory/Chest: lungs clear, shallow breath sounds, no respiratory distress Cardiovascular: regular rate, rhythm, no edema, Abdomen: normal bowel sounds, non tender, soft Extremities: non-tender, no pedal edema, no calf tenderness Neurologic/Psychiatric: alert, normal mood/affect, oriented x 3 Skin: normal color, warm/dry, no rash Laboratory Results Results Past 24 Hours Test 03/18/17 07:08 Range/Units White Blood Count 17.99 4.8-10.8 K/uL Red Blood Count 3.70 4.2-5.4 M/uL Hemoglobin 11.6 12.0-16.0 g/dL Hematocrit 35.0 37-47 % Mean Corpuscular Volume 94.6 80-100 fL Mean Corpuscular Hemoglobin 31.4 25-34 pg Mean Corpuscular Hemoglobin Concent 33.1 32-36 g/dl Platelet Count 211 130-400 K/uL Mean Platelet Volume 9.9 7.4-10.4 fL Neutrophils (%) (Auto) 95.6 % Lymphocytes (%) (Auto) 1.6 % Monocytes (%) (Auto) 2.5 % Eosinophils (%) (Auto) 0.0 % Basophils (%) (Auto) 0.0 % Neutrophils # (Auto) 17.19 1.4-6.5 K/uL Lymphocytes # (Auto) 0.29 1.2-3.4 K/uL Monocytes # (Auto) 0.45 0.11-0.59 K/uL Eosinophils # (Auto) 0.00 0-0.5 K/uL Basophils # (Auto) 0.00 0-0.2 K/uL RDW Standard Deviation 46.9 36.4-46.3 fL RDW Coefficient of Variation 13.4 11.5-14.5 % Immature Granulocyte % (Auto) 0.3 % Immature Granulocyte # (Auto) 0.06 0.00-0.02 K/uL Sodium Level 137 136-145 mmol/L Potassium Level 4.2 3.5-5.1 mmol/L Chloride Level 100 98-107 mmol/L Carbon Dioxide Level 31 21-32 mmol/L Anion Gap 6.0 3-11 mmol/L Blood Urea Nitrogen 27 7-18 mg/dl Creatinine 0.84 0.60-1.20 mg/dl Est Creatinine Clear Calc Drug Dose 36.3 ml/min Estimated GFR () 72.9 Estimated GFR (Non- 62.9 BUN/Creatinine Ratio 31.7 10-20 Random Glucose 167 70-99 mg/dl Calcium Level 9.0 8.5-10.1 mg/dl Assessment and Plan This is a 87 yo F with Hx of COPD on home O2 3-4 L NC, on prednisone 5mg daily at home. with multiple recent admissions for 10/02 and 10/29 for Dyspnea., Hx of Severe Aortic Stenosis s/p TAVR (09/2016) Hx of Atrial Fibrillation on Diltazem 360 mg daily , Eliquis, diastolic congestive heart failure presenting with progressive SOB, Leukocytosis Bibasilar opacities on CXR. Dyspnea, Acute on Chronic Resp Failure likely secondary to combination of COPD, Diastolic CHF. -CXR, showing bibasilar opacities -Pneumonia also considered given Leukocytosis, however this may be secondary to home prednisone use. patient has been afebrile -BIPAP during ED stay, weaned to 5L NC on admission, maintaining saturation, Continue to follow -Given IV Solu-medrol 80 mg IV in ED -Started Solu-medrol 40 mg q8, plan to switch to PO Prednisone on prior to discharge -Scheduled/PRN Nebulizer treatment with Xopenex -Continue home dosing of Lasix -Given Levaquin, Aztreonam empirically in ED -Switch to PO Levaquin -Elevated D-Dimer, NO evidence of PE on VQ scan -Blood cx's NGTD -Procalcitonin negative, CRP mildly elevated -per Pulmonology Goal for saturation is 88%-92% Paroxysmal Atrial Fibrillation with RVR - Rate Control: -Given Cardizem Drip In ED (10 mg IV) -Continue PO Cardizem 120 mg q8, Plant to switch back to 360mg Cardizem XR q24 prior to discharge -Cardiology consulted - Anticoagulation with Eliquis -Started on Digoxin per Cardiology Severe Aortic Stenosis s/p TAVR - stable, functioning properly per cardiology DVT Prophylaxis: -already on Eliquis PT/OT Code Status; DNR Continued [facility] [place] stay due to: multiple IV medications needed Discharge planning: uncertain Resident Tracking Resident Involvement: Resident Care Provided Care Provided: Adult Hospital Medicine
[2017-03-19] VITALS (10 sets, daily range): BP systolic 140–156; BP diastolic 70–102; PULSE 72–97; TEMP 36.3–36.6; O2SAT 90–96
[2017-03-19] MEDS: IPRATROPIUM BROMIDE NEB SOLN 0.02% 2.5 ML VIAL INH SCH ×4 (01:53→19:58)
[2017-03-19] MEDS: LEVALBUTEROL 1.25MG/0.5ML NEB INH SCH ×2 (01:54→07:23)
[2017-03-19] MEDS: DILTIAZEM SR 60 MG CAP PO SCH ×3 (03:37→19:56)
[2017-03-19] MEDS: METHYLPREDNISOLONE IV 40 MG in SYRINGE 0 ML IV SCH ×2 (05:57→18:01)
[2017-03-19 06:01] LABS: COMPLETE YES; HEMATOCRIT 38.6 % (37-47); IG% 0.6 %; LYMPH % 1.6 %; LYMPH ABS # 0.22 K/uL (1.2-3.4); MEAN CELL VOLUME 95.3 fL (80-100); MEAN CORPUSCULAR HEMOGLOBIN 30.6 pg (25-34); MEAN CORPUSCULAR HGB CONC 32.1 g/dl (32-36); MONO % 3.3 %; NEUT % 94.5 %; PLATELET COUNT 243 K/uL (130-400); RED BLOOD COUNT 4.05 M/uL (4.2-5.4); WHITE BLOOD COUNT 13.44 K/uL (4.8-10.8)
[2017-03-19 06:21] LABS: BUN/CREATININE RATIO 32.1 (10-20); CALCIUM 8.8 mg/dl (8.5-10.1); CREATININE 0.82 mg/dl (0.60-1.20); POTASSIUM 4.4 mmol/L (3.5-5.1)
[2017-03-19] MEDS: LEVOTHYROXINE 75 MCG TAB PO SCH (08:28)
[2017-03-19] MEDS: ASPIRIN 81 MG ECTAB PO SCH (08:28)
[2017-03-19] MEDS: FLUTICASONE FUROATE-VILANTEROL 60 PUFFS INH INH SCH (08:28)
[2017-03-19] MEDS: APIXABAN 2.5 MG TAB PO SCH ×2 (08:28→19:56)
--- NOTE | 2017-03-19 10:33 | Clinical Documentation Query ---
QUERY 1 OF [address] MCCARTHY, In your clinical opinion is this patient being managed for: (x ) Acute on chronic diastolic CHF ( ) Chronic diastolic CHF only ( ) Not Agree ( ) Other explanation of clinical findings (Please Explain) ( ) Unable to determine (Please Define) ( ) Need to Discuss The medical record reflects the following clinical findings, treatment, and risk factors. Clinical Indicators: 87 yo female presenting with dyspnea. CXR showed suspicion for mild pulmonary edema. Treatment:IV lasix, fluid restriction, tele monitoring, restart home lasix dose, cardiology consult, O2 support Risk Factors: age, COPD, hx diastolic CHF, HTN, kidney disease QUERY 2 OF 2 In your clinical opinion is this patient being managed for: ( x) Chronic kidney disease, stage 2 ( ) Not Agree ( ) Other explanation of clinical findings (Please Explain) ( ) Unable to determine (Please Define) ( ) Need to Discuss The medical record reflects the following clinical findings, treatment, and risk factors. Clinical Indicators: PMH indicates pt with hx of chronic kidney disease. Review of GFR range over the past year showed range of 62.9 to 95.8 Treatment: monitor PRP's, treat comorbid conditions Risk Factors: age, HTN, COPD, chronic diastolic CHF Please clarify and document your clinical opinion in the progress notes and discharge summary. Terms such as "probable", "suspected", "likely", "questionable", "possible", or "still to be ruled out" are acceptable. IF IN AGREEMENT, YOU MUST DOCUMENT ABOVE DIAGNOSTIC STATEMENT IN DAILY PROGRESS NOTES AND DISCHARGE SUMMARY. This document is not part of the patient's record. Thank You, Ave Alcantara, RN [phone]
--- NOTE | 2017-03-19 10:34 | PULMONARY PROGRESS NOTE ---
DATE: 03/19/2017 TIME: 9:55 a.m. SUBJECTIVE: The patient continues to complain of shortness of breath with any exertion. She was admitted to the hospital on March 16. She states she is not any better. At rest, she is comfortable. With simply going from her bed to the restroom, she states her saturations decrease down into the 70s. She becomes very short of breath. She has very little cough. She does not expectorate any sputum. She has not had any significant fevers. Her maximum temperature has been 37.3 since admission, and she has not had any temperature elevation in the past 48 hours. She states her appetite is decreased, but she does not like her food. I know this patient very well. I had seen her in the office on March 13. At that time, she was insistent that I taper her off of the prednisone. She had been on 10 mg per day. I told her to decrease to 7.5 per day, but she never did. At the present time, in addition to her breathing, she is complaining of constipation. She is also complaining that she is not getting her Travatan eyedrops and that she must have them. The patient did have a run of V-tach today lasting more than 20 beats. OBJECTIVE: GENERAL: The patient appears comfortable at rest. She is very hard of hearing. She does have a hearing aid. VITAL SIGNS: Temperature is 36.5. HEENT: Pupils were reactive. Mouth exam showed no erythema or exudate, even though she is complaining of some sore mouth. NECK: Palpation of the neck reveals no lymph nodes. The neck veins did not look overtly distended. HEART: Current heart rate is 78. The rhythm is irregular and compatible with atrial fibrillation. LUNGS: Auscultation of the lung luis reveals diminished breath sounds diffusely. These are most diminished posteriorly and at the bases. Oxygen saturation is 92% on 4 L. No active wheezing was heard. ABDOMEN: Soft. Bowel sounds were present. There was no tenderness to palpation. EXTREMITIES: Reveals no cyanosis, clubbing, or edema. She has a lot of ecchymosis along the right lateral leg, which she states began when she was on Xarelto. She states it has never resolved. She admits she has a lot of vanity and this upsets her. She also has areas of ecchymosis on the forearms as well. LABORATORY DATA: White count today is 13.44. She did have leukocytosis of 18.64 on admission. Hemoglobin is 12.4. Platelets are 243,000. Electrolytes today show sodium 137, potassium 4.4, chloride 100, and bicarbonate 33. BUN is 26 with a creatinine of 0.82. Blood sugar this morning was 145. C-reactive protein done near admission was 6.85, which is elevated. TSH was normal at 3.5. The proBNP was only 809. Blood cultures are negative. The patient did have a lung scan that was indeterminant and she had a venous Doppler that was negative. She has been on long-term anticoagulation and thus, the probability of pulmonary embolism was seen to be less. IMPRESSIONS: 1. Respiratory failure - acute on chronic with hypoxia and hypercarbia. 2. Chronic obstructive pulmonary disease with exacerbation. 3. Pleural effusions. 4. Pulmonary hypertension. 5. Atrial fibrillation with runs of ventricular tachycardia. COMMENTS AND RECOMMENDATIONS: The patient is a difficult management case. She is complaining of tremors. I am going to decrease the levalbuterol, which she is getting and her nebulizer treatment is down to 0.63 every 6 hours. I am also going to cut back the methylprednisolone, which has not seemed to help her to any substantial degree. I am going to order a CT of the chest without contrast. I have no objection to starting the patient on the Travatan, which she is very upset about. Further suggestions will be made as time unfolds. Discussed the case with the John Garvin PA-C, of the cardiac department. Consideration might be given to a brief trial of IV furosemide. We will need to keep a close watch on her renal function. Apparently, she does have some degree of diastolic dysfunction according to John.
--- NOTE | 2017-03-19 10:36 | Clinical Documentation Query ---
QUERY 1 OF [address] SKAGGS, In your clinical opinion is this patient being managed for: ( X) Acute on chronic diastolic CHF ( ) Chronic diastolic CHF only ( ) Not Agree ( ) Other explanation of clinical findings (Please Explain) ( ) Unable to determine (Please Define) ( ) Need to Discuss The medical record reflects the following clinical findings, treatment, and risk factors. Clinical Indicators: 87 yo female presenting with dyspnea. CXR showed suspicion for mild pulmonary edema. Treatment:IV lasix, fluid restriction, tele monitoring, restart home lasix dose, cardiology consult, O2 support Risk Factors: age, COPD, hx diastolic CHF, HTN, kidney disease QUERY 2 OF 2 In your clinical opinion is this patient being managed for: ( x ) Chronic kidney disease, stage 2 ( ) Not Agree ( ) Other explanation of clinical findings (Please Explain) ( ) Unable to determine (Please Define) ( ) Need to Discuss The medical record reflects the following clinical findings, treatment, and risk factors. Clinical Indicators: PMH indicates pt with hx of chronic kidney disease. Review of GFR range over the past year showed range of 62.9 to 95.8 Treatment: monitor PRP's, treat comorbid conditions Risk Factors: age, HTN, COPD, chronic diastolic CHF Please clarify and document your clinical opinion in the progress notes and discharge summary. Terms such as "probable", "suspected", "likely", "questionable", "possible", or "still to be ruled out" are acceptable. IF IN AGREEMENT, YOU MUST DOCUMENT ABOVE DIAGNOSTIC STATEMENT IN DAILY PROGRESS NOTES AND DISCHARGE SUMMARY. This document is not part of the patient's record. Thank You, Ave Alcantara, RN [phone]
[2017-03-19] MEDS ORDERED: FUROSEMIDE INJ 40 MG in SYRINGE 0 ML IV ONE (10:45)
[2017-03-19] MEDS: DOCUSATE SODIUM 100 MG CAP PO PRN (11:15)
[2017-03-19] MEDS: ALPRAZOLAM 0.25 MG TAB PO PRN ×2 (11:16→20:24)
--- NOTE | 2017-03-19 11:23 | CARDIOLOGY PROGRESS NOTE ---
DATE: 03/19/2017 HISTORY OF PRESENT ILLNESS: Mrs. Lane is an 87-year-old white female with a history of chronic atrial fibrillation, severe/critical status post TAVR 10/18/2016, concentric LVH with diastolic dysfunction, diastolic congestive heart failure, mild MR, moderate TR, severe pulmonary hypertension, COPD and likely some component of right-sided congestive heart failure who was admitted acutely on 03/16/2017 complaining of shortness of breath with minimal activity. She called 911, and when the EMS arrived, she was noted to be hypoxic and in acute respiratory distress. She was transported to the Emergency Room and treated with BIPAP with a significant improvement in her symptoms. Additionally, she is in chronic atrial fibrillation, but her rate has been elevated during this hospitalization. The patient still admits to shortness of breath even with walking a short distance and to her bathroom and back to the bed. It takes her several minutes to catch her breath. She feels fine when she is sitting still. The patient denies any chest pain, heaviness, tightness or pressure. She denies any neck, jaw, back or arm pain. Ongoing shortness of breath but has not had any orthopnea or PND since being admitted. She denies any syncope or near syncope. Thus far, her workup shows a normal ProBNP, negative cardiac enzymes including troponin I, total CK and CK-MB levels. Her chest x-ray on admission showed cardiomegaly with pulmonary vascular congestion and interstitial coarsening suspicious for mild pulmonary edema and small bilateral pleural effusions. Venous duplex Doppler was negative for DVT. VQ scan was indeterminate for pulmonary embolus, chronic obstructive change. Study was limited because of central air trapping. MEDICATIONS: 1. Levaquin 750 mg every other day. 2. Methylprednisolone 40 mg IV q. 12 hours. 3. Xopenex 0.63 mg every 6 hours. 4. Lasix 40 mg p.o. every day. 5. Alprazolam 0.25 mg p.o. q. 6 hours p.r.n. for anxiety. 6. Lake nasal spray 1 spray in each nostril as needed. 7. Breo Ellipta inhaler 1 puff daily. 8. Digoxin 125 mcg daily. 9. Atrovent nebulizers q. 6 hours. 10. Levothyroxine 75 mcg daily. 11. Short acting diltiazem 120 mg p.o. q. 8 hours. 12. Eliquis 2.5 mg b.i.d. 13. Tylenol p.r.n. 14. Maalox Max p.r.n. 15. Milk of magnesia p.r.n. 16. Zofran p.r.n. 17. MiraLax 17 grams daily as needed. 18. Aspirin 81 mg a day. 19. Colace 100 mg p.o. t.i.d. p.r.n. for constipation. ALLERGIES: 1. CLONIDINE. 2. DIAGNOSTIC AGENTS. 3. LATEX. 4. PENICILLIN: 5. SULFA. 6. ALDACTONE. 7. AMLODIPINE. 8. ATENOLOL. 9. DIOVAN. 10. LIDODERM PATCH. 11. LOSARTAN. 12. NIFEDIPINE. 13. TERAZOSIN. 14. PREDNISONE. PHYSICAL EXAMINATION: VITAL SIGNS: Temperature is 36.5 degrees Celsius, pulse is 75-80 and irregularly irregular, respiratory rate 16, SPO2 is 92% on 4 liters of oxygen via nasal cannula, blood pressure 140/75. I and O's -715 mL total since being hospitalized. Body weight 53 kilograms, down 0.2 kilograms from admission. GENERAL: The patient is in no acute distress. HEENT: Head is atraumatic, normocephalic. EOMs intact. Sclerae are anicteric. Face is symmetric. No perioral cyanosis. Mucous membranes are moist. NECK: Without thyromegaly or adenopathy. Well-healed surgical scar in the suprasternal notch. Jugular venous pressure is elevated approximately a 1[address] to the angle of the jaw with wide respiratory variation. CHEST AND LUNGS: With diminished breath sounds throughout, absent breath sounds in the right base. Scattered crackles in the bases, otherwise. No obvious wheezes. CARDIOVASCULAR SYSTEM: S1 and S2 are irregularly irregular at a rate of approximately 80 beats per minute with a grade 1-2/6 basal systolic murmur and this is also audible at the left sternal border. Aortic valve closure sound is accentuated. No diastolic murmurs appreciated. No obvious gallops or rubs. PMI is nondisplaced. No lifts, heaves, or thrills. No abdominal, aortic or renal bruits. ABDOMEN: Bowel sounds present. No masses, organomegaly or tenderness. EXTREMITIES: No edema. No clubbing or cyanosis. NEUROLOGIC: The patient is awake, alert, and interactive. Answers questions appropriately. Speech is clear. Normal movement of bilateral upper and lower extremities. Follows commands. LABORATORY DATA: White blood cell count is 13.44 with hemoglobin 12.4 g/dl, hematocrit 38.6% and platelet count 243,000. Sodium is 137 mmol/L, potassium 4.4 mmol/L. BUN is 26 mg/dL. Creatinine 0.82 mg/dL. Random glucose 145 mg/dL. ProBNP on admission was normal at 809 pg/mL. Telemetry monitoring reveals predominantly atrial fibrillation with controlled ventricular response. One 20 beat run of ventricular tachycardia which self terminated. ASSESSMENT: 1. Respiratory failure with acute on chronic hypoxemia and hypercarbia. 2. Chronic obstructive pulmonary disease exacerbation. 3. Bilateral pleural effusions. 4. Atrial fibrillation with elevated ventricular response rate. 5. Pulmonary hypertension. 6. Diastolic congestive heart failure. 7. Probably some right-sided congestive heart failure, 20 beat run of ventricular tachycardia. 8. Normal left ventricular systolic function. 9. Aortic stenosis, status post transcatheter aortic valve replacement 10/18/2016. PLAN: 1. The patient continues to complain of exertional dyspnea, but she is currently maintaining her oxygen saturations on supplemental O2. 2. Still has some evidence of volume overload based on her neck veins and pleural effusions. 3. We will recommend Lasix IV 40 mg today x1 dose, and continue oral Lasix 40 mg daily. 4. Continue diltiazem 120 mg t.i.d. Convert to Cardizem-CD 360 mg daily on discharge. 5. Continue digoxin 125 mcg daily. 6. Because she still has periods of elevated ventricular response rate, and had a nonsustained run of ventricular tachycardia -- she will be started on low dose Lopressor 12.5 mg b.i.d. Hold parameters based on blood pressure and heart rate, and for any presence of bronchospasm. 7. Monitor daily laboratories including daily basic metabolic panel. 8. Continue to monitor daily I's and O's, body weights. 9. Continue supplemental oxygen. 10. Continue treatment of underlying acute on chronic exacerbation of COPD. 11. Dr. Rucker and I discussed this patient. 12. We will continue to follow along while hospitalized and as an outpatient. JOSELINE
--- NOTE | 2017-03-19 12:55 | DIAGNOSTIC IMAGING REPORT ---
(CHEST) THORAX WITHOUT CLINICAL HISTORY: Severe hypoxia. Pleural effusions. COMPARISON STUDY: Chest x-ray dated 03/16/2017, chest CT dated 02/05/2007 CT DOSE: 408.92 mGy.cm TECHNIQUE: CT of the thorax was performed from the thoracic inlet to the lung bases. Images are reviewed in the axial, sagittal, and coronal planes. IV contrast was not administered for this examination. A dose lowering technique was utilized adhering to the principles of ALARA. FINDINGS: Thyroid: Imaged portions of the thyroid gland are normal in appearance. Thoracic aorta: The thoracic aorta is normal in course and caliber, noting standard 3 vessel arch anatomy. Heart: There are postsurgical changes involving the aortic root. The heart is mildly enlarged. Lungs and pleural spaces: There is a [id number] left pleural effusion and small right pleural effusion. There is respiratory motion artifact. There is no focal pulmonary consolidation. There is pulmonary emphysema. There is an irregular marginated a 12 mm right apical pulmonary nodule. This nodule should be presumed neoplastic unless proven otherwise. A PET CT scan might be considered in follow-up to evaluate metabolic activity. There is suspected mild septal edema. Mediastinum: There is a mildly enlarged precarinal lymph node measuring 11 mm. Lina: There is no evidence of pathologic hilar adenopathy given the limitations of a noncontrast study Axilla: There is no pathologic axillary lymphadenopathy Upper abdomen: Partially visualized upper abdominal viscera is within normal limits. Skeletal structures: No destructive lesions are visualized. A sternal step-off visualized on reconstructed sagittal images, likely secondary to motion artifact. IMPRESSION: 1. 12 mm irregular marginated right apical pulmonary nodule. This nodule should be presumed neoplastic until proven otherwise 2. Minimally enlarged 11 mm precarinal lymph node 3. Bilateral pleural effusions left greater than right 4. Pulmonary emphysema 5. Mild septal edema Electronically signed by: Stephen Cobos M.D. 03/19/2017 12:53 PM Dictated Date/Time: 03/19/2017 12:45 PM
[2017-03-19] MEDS: LEVALBUTEROL 0.63MG/3 ML NEB INH SCH ×2 (14:33→19:58)
--- NOTE | 2017-03-19 16:18 | Family Medicine Progress Note ---
Progress Note Date of Service Mar 19, 2017. Subjective Pt evaluation today including: conversation w/ patient, physical exam, chart review, lab review Complains of dyspnea on exertion from getting up from the bed and going to the bathroom but denies any dyspnea at rest. Denies any chest pain, palpitations, lightheadedness or dizziness Constitutional: No fever, No chills Eyes: No worsening of vision ENT: No hearing loss Respiratory: + dyspnea on exertion, No cough, No sputum, No dyspnea at rest Cardiovascular: No chest pain Abdomen: No pain, No nausea, No vomiting Female : No dysuria Psychiatric: No depression symptoms Medications Current Inpatient Medications Medications (Trade) Dose Ordered Sig/Yared Route Start Time Stop Time Status Last Admin Dose Admin Acetaminophen (Tylenol Tab) 650 mg Q4H PRN PO 03/16/17 08:45 04/15/17 08:44 Al Hydrox/Mg Hydrox/Simethicone (Maalox Max Susp) 15 ml Q4H PRN PO 03/16/17 08:45 04/15/17 08:44 Magnesium Hydroxide (Milk Of Magnesia Susp) 30 ml Q12H PRN PO 03/16/17 08:45 04/15/17 08:44 Ondansetron HCl (Zofran Inj) 4 mg Q6H PRN IV 03/16/17 08:45 04/15/17 08:44 Polyethylene (Miralax Powder Packet) 17 gm DAILY PRN PO 03/16/17 08:45 04/15/17 08:44 03/17/17 16:41 17 GM Apixaban (Eliquis Tab) 2.5 mg BID PO 03/16/17 09:00 04/15/17 08:59 03/19/17 08:28 2.5 MG Aspirin (Ecotrin Tab) 81 mg Q24H PO 03/16/17 08:45 04/15/17 08:44 03/19/17 08:28 81 MG Docusate Sodium (coLACE CAP) 100 mg TID PRN PO 03/16/17 08:45 04/15/17 08:44 03/19/17 11:15 100 MG Furosemide (Lasix Tab) 40 mg UD PO 03/16/17 08:45 04/15/17 08:44 Diltiazem HCl (Cardizem Sr) 120 mg Q8H PO 03/16/17 11:00 04/15/17 10:59 03/19/17 12:55 120 MG Ipratropium [place] (Atrovent 0.02% 0.5MG/2.5ML Neb) 0.5 mg Q6R INH 03/16/17 15:00 04/15/17 14:59 03/19/17 14:32 0.5 MG Digoxin (Lanoxin Tab) 0.125 mg DAILY@16 PO 03/16/17 16:00 04/15/17 15:59 03/18/17 15:17 0.125 MG Fluticasone/ Vilanterol (Breo Ellipta 100-25 Mcg/Inh) 1 puffs DAILY INH 03/17/17 09:00 04/16/17 08:59 03/19/17 08:28 1 PUFFS Levofloxacin (Levaquin Tab) 750 mg Q2D@11 PO 03/20/17 11:00 03/23/17 10:59 Sodium Chloride ([place] Nasal [place]) 1 sprays PRN PRN NA 03/18/17 16:30 04/17/17 16:29 Methylprednisolone Sodium Succinate 40 mg/Syringe 0.64 ml @ 1.5 mls/min Q12H IV 03/19/17 18:00 04/18/17 17:59 Levalbuterol (Xopenex 0.63 Mg/ 3 Ml Neb) 0.63 mg Q6R INH 03/19/17 15:00 04/15/17 14:59 03/19/17 14:33 0.63 MG Metoprolol Tartrate (Lopressor Tab) 12.5 mg BID PO 03/19/17 21:00 04/18/17 20:59 Alprazolam (Xanax Tab) 0.25 mg Q6H PRN PO 03/19/17 10:30 04/18/17 10:29 03/19/17 11:16 0.25 MG Levothyroxine Sodium (Synthroid Tab) 75 mcg DAILY@0400 PO 03/20/17 04:00 04/19/17 03:59 Objective Vital Signs Date Time Temp Pulse Resp B/P (MAP) Pulse Ox O2 Delivery O2 Flow Rate FiO2 03/19/17 15:39 36.6 86 22 153/81 (105) 95 Ambu-Bag 4.0 03/19/17 14:33 72 18 92 Nasal Cannula 4.0 03/19/17 12:05 36.3 82 16 156/74 (101) 96 Nasal Cannula 03/19/17 08:00 Nasal Cannula 4.0 03/19/17 07:40 36.5 78 16 140/75 (96) 92 Nasal Cannula 03/19/17 07:23 72 18 91 Nasal Cannula 4.0 03/19/17 04:00 Nasal Cannula 4.0 03/19/17 03:36 36.3 97 20 154/102 (119) 90 Nasal Cannula 4.0 03/19/17 01:54 72 18 91 Nasal Cannula 4.0 03/18/17 23:59 Nasal Cannula 4.0 03/18/17 23:18 36.6 84 19 137/76 (96) 97 Nasal Cannula 4.0 03/18/17 20:00 Nasal Cannula 4.0 Humidified Oxygen 03/18/17 19:18 36.8 105 20 146/72 (96) 98 Nasal Cannula 4.0 Humidified Oxygen 03/18/17 19:07 71 18 92 Nasal Cannula 4.0 Physical Exam General Appearance: WD/WN, no apparent distress ENT: hearing grossly normal Neck: supple Respiratory/Chest: + decreased breath sounds, + crackles Cardiovascular: regular rate, rhythm, + systolic murmur Abdomen: normal bowel sounds, non tender Extremities: + pertinent finding (ecchymoses) Neurologic/Psychiatric: alert, normal mood/affect, oriented x 3 Laboratory Results 03/19/17 05:48 Red Blood Count 4.05, Mean Corpuscular Volume 95.3, Mean Corpuscular Hemoglobin 30.6, Mean Corpuscular Hemoglobin Concent 32.1, Mean Platelet Volume 10.0, Neutrophils (%) (Auto) 94.5, Lymphocytes (%) (Auto) 1.6, Monocytes (%) (Auto) 3.3, Eosinophils (%) (Auto) 0.0, Basophils (%) (Auto) 0.0, Neutrophils # (Auto) 12.69, Lymphocytes # (Auto) 0.22, Monocytes # (Auto) 0.45, Eosinophils # (Auto) 0.00, Basophils # (Auto) 0.00 03/19/17 05:48 Test 03/19/17 05:48 White Blood Count 13.44 K/uL (4.8-10.8) Red Blood Count 4.05 M/uL (4.2-5.4) Hemoglobin 12.4 g/dL (12.0-16.0) Hematocrit 38.6 % (37-47) Mean Corpuscular Volume 95.3 fL (80-100) Mean Corpuscular Hemoglobin 30.6 pg (25-34) Mean Corpuscular Hemoglobin Concent 32.1 g/dl (32-36) Platelet Count 243 K/uL (130-400) Mean Platelet Volume 10.0 fL (7.4-10.4) Neutrophils (%) (Auto) 94.5 % Lymphocytes (%) (Auto) 1.6 % Monocytes (%) (Auto) 3.3 % Eosinophils (%) (Auto) 0.0 % Basophils (%) (Auto) 0.0 % Neutrophils # (Auto) 12.69 K/uL (1.4-6.5) Lymphocytes # (Auto) 0.22 K/uL (1.2-3.4) Monocytes # (Auto) 0.45 K/uL (0.11-0.59) Eosinophils # (Auto) 0.00 K/uL (0-0.5) Basophils # (Auto) 0.00 K/uL (0-0.2) RDW Standard Deviation 47.0 fL (36.4-46.3) RDW Coefficient of Variation 13.4 % (11.5-14.5) Immature Granulocyte % (Auto) 0.6 % Immature Granulocyte # (Auto) 0.08 K/uL (0.00-0.02) Anion Gap 5.0 mmol/L (3-11) Est Creatinine Clear Calc Drug Dose 37.2 ml/min Estimated GFR () 75.1 Estimated GFR (Non- 64.8 BUN/Creatinine Ratio 32.1 (10-20) Calcium Level 8.8 mg/dl (8.5-10.1) Assessment and Plan 87-year-old female with past medical history of COPD, with multiple recent admissions on 10/02 and 10/29 for respiratory distress, severe aortic stenosis status post TAVR, history of atrial fibrillation, diastolic heart failure presented with respiratory distress and was found to be hypoxic. Acute on chronic respiratory failure: History of COPD - Chest x-ray with bibasilar opacities - Levaquin every other day - Continue Breo , Spiriva, Xopenex ( dosage decreased today to 0.63 every 6 hours) - Methylprednisone dosage decreased to 40 mg IV every 12 hours - Chest CT ordered per pulmonology - Appreciate pulmonology recommendations Paroxysmal atrial fibrillation - Cardizem on 120 mg 3 times a day to be switched to 360 mg extended release upon discharge - Continue digoxin 125 mcg - Anticoagulation with Eliquis - Nonsustained vtach- Lopressor 12.5 mg BID Severe Aortic Stenosis s/p TAVR - stable Diastolic heart failure -Received 40 mg IV Lasix today -Continue 40 mg PO Lasix daily -Daily weights with strict I's and O's - Appreciate cardiology recommendations DVT Prophylaxis: - Eliquis PT/OT DO NOT RESUSCITATE Disposition: Monitor in telemetry Resident Physician Supervision Note: I interviewed and examined the patient. Discussed with Dr. Benitez and agree with findings and plan as documented in the note. Any exceptions or clarifications are listed here: I saw the patient earlier this evening after missing her earlier in the afternoon due to her CT scan. Unfortunately, the patient was upset that I visited her at the dinnertime hour, so at her request the visit was kept succinct. I did review with her briefly the results of the CT scan this afternoon which did demonstrate a 12 mm lung nodule. I also reviewed with her the recommendations made by cardiology including the medication changes. Documented By: Holden Grant Resident Tracking Resident Involvement: Resident Care Provided Care Provided: Adult Hospital Medicine
[2017-03-19] MEDS: DIGOXIN 0.125 MG TAB PO SCH (18:01)
[2017-03-19] MEDS: METOPROLOL TARTRATE 25 MG TAB PO SCH (20:17)
[2017-03-19] MEDS: TRAVOPROST Z 0.004% OPH SOLN 2.5 ML BTL OP SCH (20:17)
[2017-03-20] VITALS (11 sets, daily range): BP systolic 119–168; BP diastolic 58–89; PULSE 59–82; TEMP 36.2–36.8; O2SAT 91–99
[2017-03-20] MEDS: IPRATROPIUM BROMIDE NEB SOLN 0.02% 2.5 ML VIAL INH SCH ×4 (01:59→19:15)
[2017-03-20] MEDS: LEVALBUTEROL 0.63MG/3 ML NEB INH SCH ×4 (02:00→19:15)
[2017-03-20] MEDS: LEVOTHYROXINE 75 MCG TAB PO SCH (03:25)
[2017-03-20] MEDS: DILTIAZEM SR 60 MG CAP PO SCH ×3 (03:51→18:21)
[2017-03-20] MEDS: METHYLPREDNISOLONE IV 40 MG in SYRINGE 0 ML IV SCH (07:03)
[2017-03-20 07:26] LABS: HEMATOCRIT 38.1 % (37-47); MEAN CELL VOLUME 94.5 fL (80-100); MEAN CORPUSCULAR HEMOGLOBIN 31.5 pg (25-34); MEAN CORPUSCULAR HGB CONC 33.3 g/dl (32-36); MEAN PLATELET VOLUME 9.7 fL (7.4-10.4); PLATELET COUNT 262 K/uL (130-400); RED BLOOD COUNT 4.03 M/uL (4.2-5.4); WHITE BLOOD COUNT 11.75 K/uL (4.8-10.8)
[2017-03-20 08:02] LABS: BUN/CREATININE RATIO 41.2 (10-20); CALCIUM 8.6 mg/dl (8.5-10.1); CREATININE 0.8 mg/dl (0.60-1.20)
--- NOTE | 2017-03-20 08:48 | PULMONARY PROGRESS NOTE ---
DATE: 03/20/2017 TIME: 8:00 a.m. SUBJECTIVE: The patient seems to feel better today. She is somewhat more relaxed. She was given some alprazolam yesterday for her CAT scan and at bedtime and it seemed to relax her. She slept better. She feels that she is able to take somewhat of a deeper breath. She has not exerted herself to any significant degree. She is not coughing. OBJECTIVE: GENERAL: The patient appears comfortable at rest. VITAL SIGNS: Temperature is 36.8. HEENT: She does complain of hoarseness but her throat showed no evidence of candidiasis. CARDIOVASCULAR: The heart rate is 75 per minute. The rhythm is irregular. Blood pressure is 145/60. CHEST: Respiratory rate is 20 per minute and not labored. The breath sounds are decreased at both bases and there is dullness at the left base. No active wheezing was heard. Oxygen saturation was 97% on 4 liters. EXTREMITIES: Showed no cyanosis, clubbing or edema. The patient had a CAT scan of her chest done yesterday. This showed evidence of emphysema. She has small effusions, slightly larger on the left than on the right. There is a 12 mm right apical nodule that would be suspicious for malignancy. There is a mildly enlarged precarinal lymph node measuring 11 mm. Mild septal edema was noted. LABORATORY DATA: White blood cell count today is 11.75. This continues to decrease from admission. Hemoglobin is 12.7. Platelets are 262,000. Chemistry studies for today are pending. IMPRESSIONS: 1. Respiratory failure, acute on chronic with hypoxia and hypercarbia. 2. Chronic obstructive pulmonary disease with exacerbation. 3. Pleural effusions, left greater than right. 4. Right upper lobe nodule measuring 1.2 cm. 5. Pulmonary hypertension. 6. Atrial fibrillation. COMMENTS AND RECOMMENDATIONS: I spoke with the patient about the CAT scan findings. I explained to her, she has a small nodule in the right apex. I told her we cannot determine if this is malignant or not. She is not a candidate for any invasive workup. She is agreeable with this. I told her at the very most we would repeat a CAT scan, perhaps in 6 months. Her lung status does not permit any type of biopsy procedure even if this were a malignancy. Respiratory garcía, she seems to be improving. I spoke with her again about my feeling she needs to be in assisted living. She seems to be a little more receptive to that. She wanted to have the care managers talk to her about the hospice program that she was initially getting into and then got because of some concerns. In light of the fact she is not having bronchospasm, I would again decrease her steroid dose. We will cut the methylprednisolone down to 20 mg IV q. 12 hours. Perhaps physical therapy could assist with some ambulation and strengthening.
[2017-03-20] MEDS: ASPIRIN 81 MG ECTAB PO SCH (10:05)
[2017-03-20] MEDS: APIXABAN 2.5 MG TAB PO SCH ×2 (10:06→20:44)
[2017-03-20] MEDS: METOPROLOL TARTRATE 25 MG TAB PO SCH ×2 (10:08→20:42)
[2017-03-20] MEDS: FLUTICASONE FUROATE-VILANTEROL 60 PUFFS INH INH SCH (10:13)
--- NOTE | 2017-03-20 11:39 | Family Medicine Progress Note ---
Progress Note Date of Service Mar 20, 2017. Subjective Pt evaluation today including: conversation w/ patient, physical exam, chart review, lab review Voiding: no voiding problems has some shortness of breath while walking from the bed to the toilet. She also has been working with PT. Complains of hoarseness/soreness in her throat Denies any chest pain, palpitations, lightheadedness or dizziness Constitutional: No fever, No chills Eyes: No worsening of vision ENT: + hearing loss Respiratory: + dyspnea on exertion, No cough, No sputum, No wheezing Cardiovascular: No chest pain Abdomen: No pain, No nausea, No vomiting Musculoskeletal: No joint pain Female : No dysuria Neurologic: No memory loss Psychiatric: No depression symptoms Heme: No abnormal bleeding/bruising Medications Current Inpatient Medications Medications (Trade) Dose Ordered Sig/Yared Route Start Time Stop Time Status Last Admin Dose Admin Acetaminophen (Tylenol Tab) 650 mg Q4H PRN PO 03/16/17 08:45 04/15/17 08:44 Al Hydrox/Mg Hydrox/Simethicone (Maalox Max Susp) 15 ml Q4H PRN PO 03/16/17 08:45 04/15/17 08:44 Magnesium Hydroxide (Milk Of Magnesia Susp) 30 ml Q12H PRN PO 03/16/17 08:45 04/15/17 08:44 Ondansetron HCl (Zofran Inj) 4 mg Q6H PRN IV 03/16/17 08:45 04/15/17 08:44 Polyethylene (Miralax Powder Packet) 17 gm DAILY PRN PO 03/16/17 08:45 04/15/17 08:44 03/17/17 16:41 17 GM Apixaban (Eliquis Tab) 2.5 mg BID PO 03/16/17 09:00 04/15/17 08:59 03/20/17 10:06 2.5 MG Aspirin (Ecotrin Tab) 81 mg Q24H PO 03/16/17 08:45 04/15/17 08:44 03/20/17 10:05 81 MG Docusate Sodium (coLACE CAP) 100 mg TID PRN PO 03/16/17 08:45 04/15/17 08:44 03/19/17 11:15 100 MG Furosemide (Lasix Tab) 40 mg UD PO 03/16/17 08:45 11/26/17 08:44 Diltiazem HCl (Cardizem Sr) 120 mg Q8H PO 03/16/17 11:00 04/15/17 10:59 03/20/17 03:51 120 MG Ipratropium [place] (Atrovent 0.02% 0.5MG/2.5ML Neb) 0.5 mg Q6R INH 03/16/17 15:00 04/15/17 14:59 03/20/17 07:34 0.5 MG Digoxin (Lanoxin Tab) 0.125 mg DAILY@16 PO 03/16/17 16:00 04/15/17 15:59 03/19/17 18:01 0.125 MG Fluticasone/ Vilanterol (Breo Ellipta 100-25 Mcg/Inh) 1 puffs DAILY INH 03/17/17 09:00 04/16/17 08:59 03/19/17 08:28 1 PUFFS Levofloxacin (Levaquin Tab) 750 mg Q2D@11 PO 03/20/17 11:00 03/23/17 10:59 Sodium Chloride ([place] Nasal [place]) 1 sprays PRN PRN NA 03/18/17 16:30 04/17/17 16:29 Levalbuterol (Xopenex 0.63 Mg/ 3 Ml Neb) 0.63 mg Q6R INH 03/19/17 15:00 04/15/17 14:59 03/20/17 07:34 0.63 MG Metoprolol Tartrate (Lopressor Tab) 12.5 mg BID PO 03/19/17 21:00 04/18/17 20:59 03/20/17 10:08 12.5 MG Alprazolam (Xanax Tab) 0.25 mg Q6H PRN PO 03/19/17 10:30 04/18/17 10:29 03/19/17 20:24 0.25 MG Levothyroxine Sodium (Synthroid Tab) 75 mcg DAILY@0400 PO 03/20/17 04:00 04/19/17 03:59 03/20/17 03:25 75 MCG Travoprost (Travatan Z) 1 drops HS OP 03/19/17 21:00 04/18/17 20:59 03/19/17 20:17 1 DROPS Methylprednisolone Sodium Succinate 20 mg/Syringe 0.32 ml @ 1.5 mls/min Q12H IV 03/20/17 18:00 04/18/17 17:59 Objective Vital Signs Date Time Temp Pulse Resp B/P (MAP) Pulse Ox O2 Delivery O2 Flow Rate FiO2 03/20/17 08:00 Nasal Cannula 4.0 03/20/17 07:34 75 18 97 Nasal Cannula 4.0 03/20/17 07:33 36.8 76 18 145/60 (88) 96 03/20/17 04:00 Nasal Cannula 4.0 03/20/17 03:22 36.3 66 18 144/68 (93) 96 Nasal Cannula 4.0 03/20/17 02:00 75 18 98 Nasal Cannula 4.0 03/20/17 00:01 Nasal Cannula 4.0 03/19/17 23:17 36.6 79 16 156/70 (98) 93 Nasal Cannula 4.0 03/19/17 20:05 80 18 96 Nasal Cannula 4.0 03/19/17 20:00 Nasal Cannula 4.0 03/19/17 18:55 36.4 97 18 150/70 (96) 96 Nasal Cannula 3.5 03/19/17 18:01 103 03/19/17 17:00 Nasal Cannula 4.0 03/19/17 15:39 36.6 86 22 153/81 (105) 95 Ambu-Bag 4.0 03/19/17 14:33 72 18 92 Nasal Cannula 4.0 03/19/17 13:00 Nasal Cannula 4.0 03/19/17 12:05 36.3 82 16 156/74 (101) 96 Nasal Cannula Physical Exam General Appearance: WD/WN, no apparent distress Eyes: normal inspection ENT: + pertinent finding (hearing loss- uses hearing aids) Respiratory/Chest: no respiratory distress, + decreased breath sounds Cardiovascular: + irregularly irregular Abdomen: normal bowel sounds, soft Extremities: no pedal edema Neurologic/Psychiatric: alert, normal mood/affect, oriented x 3 Skin: normal color Laboratory Results 03/20/17 07:08 03/20/17 07:08 Test 03/20/17 07:08 Red Blood Count 4.03 M/uL (4.2-5.4) Mean Corpuscular Volume 94.5 fL (80-100) Mean Corpuscular Hemoglobin 31.5 pg (25-34) Mean Corpuscular Hemoglobin Concent 33.3 g/dl (32-36) RDW Standard Deviation 46.2 fL (36.4-46.3) RDW Coefficient of Variation 13.4 % (11.5-14.5) Mean Platelet Volume 9.7 fL (7.4-10.4) Anion Gap 4.0 mmol/L (3-11) Est Creatinine Clear Calc Drug Dose 32.0 ml/min Estimated GFR () 77.4 Estimated GFR (Non- 66.8 BUN/Creatinine Ratio 41.2 (10-20) Calcium Level 8.6 mg/dl (8.5-10.1) CHEST) THORAX WITHOUT CLINICAL HISTORY: Severe hypoxia. Pleural effusions. COMPARISON STUDY: Chest x-ray dated 03/16/2017, chest CT dated 02/05/2007 CT DOSE: 408.92 mGy.cm TECHNIQUE: CT of the thorax was performed from the thoracic inlet to the lung bases. Images are reviewed in the axial, sagittal, and coronal planes. IV contrast was not administered for this examination. A dose lowering technique was utilized adhering to the principles of ALARA. FINDINGS: Thyroid: Imaged portions of the thyroid gland are normal in appearance. Thoracic aorta: The thoracic aorta is normal in course and caliber, noting standard 3 vessel arch anatomy. Heart: There are postsurgical changes involving the aortic root. The heart is mildly enlarged. Lungs and pleural spaces: There is a [id number] left pleural effusion and small right pleural effusion. There is respiratory motion artifact. There is no focal pulmonary consolidation. There is pulmonary emphysema. There is an irregular marginated a 12 mm right apical pulmonary nodule. This nodule should be presumed neoplastic unless proven otherwise. A PET CT scan might be considered in follow-up to evaluate metabolic activity. There is suspected mild septal edema. Mediastinum: There is a mildly enlarged precarinal lymph node measuring 11 mm. Lina: There is no evidence of pathologic hilar adenopathy given the limitations of a noncontrast study Axilla: There is no pathologic axillary lymphadenopathy Upper abdomen: Partially visualized upper abdominal viscera is within normal limits. Skeletal structures: No destructive lesions are visualized. A sternal step-off visualized on reconstructed sagittal images, likely secondary to motion artifact. IMPRESSION: 1. 12 mm irregular marginated right apical pulmonary nodule. This nodule should be presumed neoplastic until proven otherwise 2. Minimally enlarged 11 mm precarinal lymph node 3. Bilateral pleural effusions left greater than right 4. Pulmonary emphysema 5. Mild septal edema Electronically signed by: Stephen Cobos M.D. 03/19/2017 12:53 PM Dictated Date/Time: 03/19/2017 12:45 PM Assessment and Plan 87-year-old female with past medical history of COPD, with multiple recent admissions on 10/02 and 10/29 for respiratory distress, severe aortic stenosis status post TAVR, history of atrial fibrillation, diastolic heart failure presented with respiratory distress and was found to be hypoxic. Acute on chronic respiratory failure: History of COPD - Chest x-ray with bibasilar opacities - Levaquin every other day - Continue Breo , Spiriva, Xopenex ( dosage decreased to 0.63 every 6 hours) - Methylprednisone dosage further decreased to 20 mg IV every 12 hours - Chest CT : 12 mm irregular marginated right apical pulmonary nodule and Minimally enlarged 11 mm precarinal lymph node- likely malignant- poor candidate for any invasive workup may repeat CT scan in 6 months - Appreciate pulmonology recommendations Paroxysmal atrial fibrillation - Cardizem on 120 mg 3 times a day to be switched to 360 mg extended release upon discharge - Continue digoxin 125 mcg - Anticoagulation with Eliquis - Nonsustained vtach- Lopressor 12.5 mg BID Severe Aortic Stenosis s/p TAVR - stable Diastolic heart failure -Received 40 mg IV Lasix today -Continue 40 mg PO Lasix daily -Daily weights with strict I's and O's - Appreciate cardiology recommendations DVT Prophylaxis: - Eliquis PT/OT DO NOT RESUSCITATE Disposition: transfer to med/surg, working on setting her up with assisted living Resident Physician Supervision Note: I was present with Dr. Benitez during the history and exam. I discussed the case with the resident and agree with the findings and plan as documented in the note. COPD, exacerbation, improving. CHF, Acute on Chronic, diastolic with acute systolic likely secondary to dysthymia, improved with increased diuretics. CKD, Stage 2. Transfer to floor. Documented By: Holden Grant Resident Tracking Resident Involvement: Resident Care Provided Care Provided: Adult Hospital Medicine
[2017-03-20] MEDS: LEVOFLOXACIN 750 MG TAB PO SCH (11:54)
[2017-03-20] MEDS: DIGOXIN 0.125 MG TAB PO SCH (15:43)
[2017-03-20] MEDS: METHYLPREDNISOLONE IV 20 MG in SYRINGE 0 ML IV SCH (18:21)
[2017-03-20] MEDS: TRAVOPROST Z 0.004% OPH SOLN 2.5 ML BTL OP SCH (20:45)
[2017-03-21] VITALS (10 sets, daily range): BP systolic 160–163; BP diastolic 77–85; PULSE 75–78; TEMP 36.6–36.8; O2SAT 87–98
[2017-03-21] MEDS ORDERED: NURSING DECISION MEDICATION ORDER SCH ×2 (00:30→10:45)
[2017-03-21] MEDS ORDERED: INFLUENZA ADMINISTRATION CHARGE ONE (00:45)
[2017-03-21] MEDS ORDERED: INFLUENZA VACCINE HIGH DOSE 65+ 0.5 ML SYR IM. ONE (00:45)
[2017-03-21] MEDS: LEVALBUTEROL 0.63MG/3 ML NEB INH SCH ×4 (02:16→19:49)
[2017-03-21] MEDS: IPRATROPIUM BROMIDE NEB SOLN 0.02% 2.5 ML VIAL INH SCH ×4 (02:16→19:49)
[2017-03-21] MEDS: DILTIAZEM SR 60 MG CAP PO SCH ×3 (03:08→18:30)
[2017-03-21] MEDS: LEVOTHYROXINE 75 MCG TAB PO SCH (04:06)
[2017-03-21] MEDS: METHYLPREDNISOLONE IV 20 MG in SYRINGE 0 ML IV SCH ×2 (07:11→18:30)
[2017-03-21] MEDS: APIXABAN 2.5 MG TAB PO SCH ×2 (07:44→20:55)
[2017-03-21] MEDS: METOPROLOL TARTRATE 25 MG TAB PO SCH ×2 (07:45→20:54)
[2017-03-21] MEDS: FLUTICASONE FUROATE-VILANTEROL 60 PUFFS INH INH SCH (07:46)
[2017-03-21] MEDS: ASPIRIN 81 MG ECTAB PO SCH (07:46)
[2017-03-21] MEDS ORDERED: COUGH DROP (SUGAR FREE) LOZ 24 LOZ/1 BOX PO PRN (10:45)
--- NOTE | 2017-03-21 14:42 | Family Medicine Progress Note ---
Progress Note Date of Service Mar 21, 2017. Subjective Pt evaluation today including: conversation w/ patient, physical exam, chart review, lab review states that she wants to go home and not to assisted living. SOB is improved since admission Constitutional: No fever, No chills Eyes: No worsening of vision ENT: + hearing loss Respiratory: + dyspnea on exertion, No cough Cardiovascular: No chest pain Abdomen: No pain, No nausea Musculoskeletal: No joint pain Female : No dysuria Medications Current Inpatient Medications Medications (Trade) Dose Ordered Sig/Yared Route Start Time Stop Time Status Last Admin Dose Admin Acetaminophen (Tylenol Tab) 650 mg Q4H PRN PO 03/16/17 08:45 04/15/17 08:44 Al Hydrox/Mg Hydrox/Simethicone (Maalox Max Susp) 15 ml Q4H PRN PO 03/16/17 08:45 04/15/17 08:44 Magnesium Hydroxide (Milk Of Magnesia Susp) 30 ml Q12H PRN PO 03/16/17 08:45 04/15/17 08:44 Ondansetron HCl (Zofran Inj) 4 mg Q6H PRN IV 03/16/17 08:45 04/15/17 08:44 Polyethylene (Miralax Powder Packet) 17 gm DAILY PRN PO 03/16/17 08:45 04/15/17 08:44 03/17/17 16:41 17 GM Apixaban (Eliquis Tab) 2.5 mg BID PO 03/16/17 09:00 04/15/17 08:59 03/21/17 07:44 2.5 MG Aspirin (Ecotrin Tab) 81 mg Q24H PO 03/16/17 08:45 04/15/17 08:44 03/21/17 07:46 81 MG Docusate Sodium (coLACE CAP) 100 mg TID PRN PO 03/16/17 08:45 04/15/17 08:44 03/19/17 11:15 100 MG Furosemide (Lasix Tab) 40 mg UD PO 03/16/17 08:45 04/15/17 08:44 Diltiazem HCl (Cardizem Sr) 120 mg Q8H PO 03/16/17 11:00 04/15/17 10:59 03/21/17 11:19 120 MG Ipratropium [place] (Atrovent 0.02% 0.5MG/2.5ML Neb) 0.5 mg Q6R INH 03/16/17 15:00 04/15/17 14:59 03/21/17 13:55 0.5 MG Digoxin (Lanoxin Tab) 0.125 mg DAILY@16 PO 03/16/17 16:00 04/15/17 15:59 03/20/17 15:43 0.125 MG Fluticasone/ Vilanterol (Breo Ellipta 100-25 Mcg/Inh) 1 puffs DAILY INH 03/17/17 09:00 04/16/17 08:59 03/19/17 08:28 1 PUFFS Levofloxacin (Levaquin Tab) 750 mg Q2D@11 PO 03/20/17 11:00 03/23/17 10:59 03/20/17 11:54 750 MG Sodium Chloride ([place] Nasal [place]) 1 sprays PRN PRN NA 03/18/17 16:30 04/17/17 16:29 Levalbuterol (Xopenex 0.63 Mg/ 3 Ml Neb) 0.63 mg Q6R INH 03/19/17 15:00 04/15/17 14:59 03/21/17 13:55 0.63 MG Metoprolol Tartrate (Lopressor Tab) 12.5 mg BID PO 03/19/17 21:00 04/18/17 20:59 03/21/17 07:45 12.5 MG Alprazolam (Xanax Tab) 0.25 mg Q6H PRN PO 03/19/17 10:30 04/18/17 10:29 03/19/17 20:24 0.25 MG Levothyroxine Sodium (Synthroid Tab) 75 mcg DAILY@0400 PO 03/20/17 04:00 04/19/17 03:59 03/21/17 04:06 75 MCG Travoprost (Travatan Z) 1 drops HS OP 03/19/17 21:00 04/18/17 20:59 03/20/17 20:45 1 DROPS Methylprednisolone Sodium Succinate 20 mg/Syringe 0.32 ml @ 1.5 mls/min Q12H IV 03/20/17 18:00 04/18/17 17:59 03/21/17 07:11 1.5 MLS/MIN Menthol (Nice Yaz) 1 yaz PRN PRN PO 03/21/17 10:45 04/20/17 10:44 03/21/17 11:04 1 YAZ Objective Vital Signs Date Time Temp Pulse Resp B/P (MAP) Pulse Ox O2 Delivery O2 Flow Rate FiO2 03/21/17 13:57 76 18 95 Nasal Cannula 4.0 03/21/17 08:00 Nasal Cannula 4.0 03/21/17 07:30 95 Nasal Cannula 03/21/17 07:20 36.6 77 18 160/77 (104) 95 Nasal Cannula 4.0 03/21/17 07:05 75 18 94 Nasal Cannula 4.0 03/21/17 04:02 36.8 75 19 163/85 (111) 92 Nasal Cannula 3.0 03/21/17 03:08 75 161/79 (106) 03/21/17 02:18 77 18 98 Nasal Cannula 4.0 03/21/17 00:00 Nasal Cannula 4.0 03/20/17 23:55 36.2 73 20 168/89 (115) 96 Nasal Cannula 3.0 03/20/17 20:41 76 146/71 (96) 03/20/17 20:00 Nasal Cannula 4.0 03/20/17 19:27 36.2 74 20 130/74 (92) 99 Nasal Cannula 4.0 03/20/17 19:16 82 18 97 Nasal Cannula 4.0 03/20/17 16:38 Nasal Cannula 4.0 03/20/17 15:43 68 Physical Exam General Appearance: WD/WN, no apparent distress Eyes: normal inspection ENT: + pertinent finding (hearing loss) Respiratory/Chest: + decreased breath sounds Cardiovascular: + irregularly irregular Abdomen: soft Extremities: no pedal edema Neurologic/Psychiatric: alert, normal mood/affect, oriented x 3 Assessment and Plan 87-year-old female with past medical history of COPD, with multiple recent admissions on 10/02 and 10/29 for respiratory distress, severe aortic stenosis status post TAVR, history of atrial fibrillation, diastolic heart failure presented with respiratory distress . Acute on chronic respiratory failure: History of COPD - Chest x-ray with bibasilar opacities - Levaquin every other day - Continue Breo , Spiriva, Xopenex ( dosage decreased to 0.63 every 6 hours) - Methylprednisone dosage 20 mg IV every 12 hours - Chest CT : 12 mm irregular marginated right apical pulmonary nodule and Minimally enlarged 11 mm precarinal lymph node- likely malignant- poor candidate for any invasive workup may repeat CT scan in 6 months - Appreciate pulmonology recommendations Paroxysmal atrial fibrillation - Cardizem on 120 mg 3 times a day to be switched to 360 mg extended release upon discharge - Continue digoxin 125 mcg - Anticoagulation with Eliquis - continue Lopressor 12.5 mg BID Severe Aortic Stenosis s/p TAVR - stable Diastolic heart failure -Received 40 mg IV Lasix today -Continue 40 mg PO Lasix daily -Daily weights with strict I's and O's - Appreciate cardiology recommendations DVT Prophylaxis: - Eliquis PT/OT DO NOT RESUSCITATE Disposition: med/surg, Today, patient states that she doesnt want to go to assisted living and wants to be discharged home. Resident Physician Supervision Note: I was present with Dr. Benitez during the history and exam. I discussed the case with the resident and agree with the findings and plan as documented in the note. She seems improved from a respiratory standpoint. Appreciate pulmonology input; can likely convert steroids to by mouth. Case management working with regards to discharge planning. Documented By: Holden Grant Resident Tracking Resident Involvement: Resident Care Provided Care Provided: Adult Hospital Medicine
--- NOTE | 2017-03-21 15:27 | PULMONARY PROGRESS NOTE ---
DATE: 03/21/2017 DATE: 03/21/2017 TIME: 3:00 p.m. SUBJECTIVE: The patient is generally feeling better. She is overall less short of breath. She is hoping to go home soon. She is not coughing much. OBJECTIVE: GENERAL: The patient is comfortable at rest. I was with her when physical therapy ambulated her just prior to my exam. She ambulated more than once around the omer for a total of 1.5 times and she did well. Her oxygen saturation at the end was 85% on approximately 4 liters of nasal cannula. EARS, NOSE, THROAT: Exam is unchanged. VITAL SIGNS: Temperature is 36.6 this morning. Heart rate was 76. The rhythm was irregular. Blood pressure is 160/77. LUNGS: Lung luis revealed decreased breath sounds. No active wheezing was heard. As noted, her saturation at rest is 95% but with ambulation was 85% with 4 liters. EXTREMITIES: Showed no edema. This has resolved nicely. IMPRESSIONS: 1. Respiratory failure -- acute on chronic with hypoxia and hypercarbia. 2. Chronic obstructive pulmonary disease exacerbation. 3. Bilateral pleural effusions, left greater than right. 4. Pulmonary hypertension. 5. Right upper lobe nodule 1.2 cm. 6. Atrial fibrillation. COMMENTS AND RECOMMENDATIONS: The patient is doing well. She has several things that need to be done prior to discharge. In light of the fact she lives alone I believe she would best be served by being discharged tomorrow. She needs to be set up for portable oxygen at 4 liters through [facility]. We should request a portable concentrator. She also needs a nebulizer through [facility]. I would order this with levalbuterol 0.63 three times per day. She will need a prescription for her metoprolol that was prescribed by cardiology. She likely needs for digoxin as well. I think it might be too much for the patient to have to deal with doing ipratropium treatments and they are less likely to help. We will change her over to prednisone. She should be on 40 mg for 4 days, then 30 mg for 4 days, then 20 mg for 4 days, then 10 mg daily. I do not believe she needs further levofloxacin when she is discharged. I am going to check a chest x-ray for later today. The patient indicated she was supposed to have lab work for her professional healthcare representative, Dr. Pretty Mckinnon. It looks like she has had everything she needs except for a free T4 which hopefully can be ordered for the morning. This was discussed with Dr. Ward.
--- NOTE | 2017-03-21 15:48 | DIAGNOSTIC IMAGING REPORT ---
CHEST 2 VIEWS ROUTINE CLINICAL HISTORY: Follow up effusions. COMPARISON STUDY: Chest CT March 19, 2017. FINDINGS: There is no pneumothorax. Small bilateral pleural effusions, left larger than right, are unchanged since prior CT. Cardiomediastinal silhouette is stable. Prosthetic aortic valve is noted. Mild pulmonary edema has slightly improved. IMPRESSION: 1. No change in small bilateral pleural effusions, left larger than right. 2. Persistent, but improved, pulmonary edema. Electronically signed by: Fredis Canales M.D. 03/21/2017 3:47 PM Dictated Date/Time: 03/21/2017 3:45 PM
[2017-03-21] MEDS: DIGOXIN 0.125 MG TAB PO SCH (16:34)
[2017-03-21] MEDS: POLYETHYLENE (MIRALAX) 17 GM PACK PO PRN (18:29)
[2017-03-21] MEDS: TRAVOPROST Z 0.004% OPH SOLN 2.5 ML BTL OP SCH (20:22)
[2017-03-22] VITALS: BP 174/88; PULSE 84; TEMP 36.4; O2SAT 95
[2017-03-22] MEDS: LEVALBUTEROL 0.63MG/3 ML NEB INH SCH ×2 (02:03→07:16)
[2017-03-22] MEDS: IPRATROPIUM BROMIDE NEB SOLN 0.02% 2.5 ML VIAL INH SCH ×2 (02:04→07:11)
[2017-03-22 02:06] VITALS: PULSE 66; O2SAT 98
[2017-03-22] MEDS: LEVOTHYROXINE 75 MCG TAB PO SCH (04:24)
[2017-03-22] MEDS: DILTIAZEM SR 60 MG CAP PO SCH ×2 (04:24→11:03)
[2017-03-22] MEDS: METHYLPREDNISOLONE IV 20 MG in SYRINGE 0 ML IV SCH (06:04)
[2017-03-22 07:20] VITALS: PULSE 72; O2SAT 98
[2017-03-22] MEDS: ASPIRIN 81 MG ECTAB PO SCH (08:03)
[2017-03-22] MEDS: APIXABAN 2.5 MG TAB PO SCH (08:03)
[2017-03-22] MEDS: METOPROLOL TARTRATE 25 MG TAB PO SCH (08:03)
[2017-03-22 08:16] VITALS: BP 162/86; PULSE 63; TEMP 33.4; O2SAT 96
[2017-03-22 08:38] VITALS: BP 162/86; PULSE 63; TEMP 33.4; O2SAT 96
[2017-03-22] MEDS: FLUTICASONE FUROATE-VILANTEROL 60 PUFFS INH INH SCH (08:40)
--- NOTE | 2017-03-22 09:17 | PULMONARY PROGRESS NOTE ---
DATE: 03/22/2017 TIME: 8:55 a.m. SUBJECTIVE: The patient has not had any acute episodes of shortness of breath. Generally she had a fairly decent night. She does not sleep well in the hospital but otherwise no respiratory problems. She is fairly comfortable this morning. She is not coughing much. The patient is hoping for discharge today. OBJECTIVE: GENERAL: The patient was comfortable at rest. VITAL SIGNS: Temperature was recorded as 33.4, but it was axillary. Her temperature had been midnight 36.4. EARS, NOSE, THROAT: Unchanged. HEART: Heart rate is 63 per minute. The rhythm is irregularly irregular. Blood pressure is 162/86. LUNGS: Lung luis revealed decreased breath sounds. No active wheezing was heard. Saturation was 96% on 4 liters. EXTREMITIES: Shows trace edema on the right leg. This is a little more than yesterday. The left leg has no edema. Chest x-ray was done yesterday. The small pleural effusions are still present. The pulmonary vascular congestion seen on the chest x-ray previously has improved significantly. IMPRESSIONS: 1. Respiratory failure -- acute on chronic with hypoxia and hypercarbia. 2. Chronic obstructive pulmonary disease exacerbation. 3. Pleural effusions -- small -- left greater than right. 4. Right upper lobe nodule 1.2 cm. 5. Pulmonary hypertension. 6. Atrial fibrillation. RECOMMENDATIONS AND COMMENTS: I have no objections to the patient being discharged today. Would discharge her with the prednisone doses as recommended yesterday. As noted previously, she needs a nebulizer and she should be ordered for levalbuterol 0.63 three times a day. Please document on her prescription that she needs levalbuterol because of cardiac arrhythmia issues with albuterol. She does not think the Breo works, but I would still continue that at home for her. She does need the new medications from a cardiac perspective, which they had ordered for her, which would include digoxin and metoprolol. I have made an appointment for her to be seen in my office on 03/28/2017 at 1 p.m. I did discuss this with the patient and wrote it on a piece of paper for her, but this should be emphasized at the time of discharge.
[2017-03-22] MEDS ORDERED: LNX125 PO (09:39)
[2017-03-22] MEDS ORDERED: LPR25 PO (09:39)
[2017-03-22] MEDS ORDERED: PRED10TA PO (09:46)
[2017-03-22] MEDS ORDERED: XPNINS INH (09:46)
[2017-03-22] MEDS ORDERED: PRED20TA PO (09:46)
--- NOTE | 2017-03-22 10:54 | Discharge Instructions ---
Discharge Instructions Date of Service Mar 22, 2017. Admission Reason for Admission: Atrial Fibrillation With Rvr, Dyspnea, Discharge Discharge Diagnosis / Problem: COPD exacerbation Discharge Goals Goal(s): Decrease discomfort, Improve function Activity Recommendations Activity Limitations: resume your previous activity . Instructions / Follow-Up Instructions / Follow-Up Recommendations: COPD - Continue to use Breo -Please continue to use 5 L of oxygen be used continuously via nasal cannula - Combivent has been replaced with levalbuterol at 0.63 g to be used via nebulizer 3 times a day - You received IV Solu-Medrol during your hospital stay and You will be tapered off to your daily prednisone dosage as follows: Use 40 mg of prednisone daily for 4 days followed by 30 mg of prednisone daily for 4 days followed by 20 mg of prednisone daily for 4 days and then use 10 mg prednisone daily. - You were also found to have a 12 mm pulmonary nodule on your right lung , you are recommended to get repeat CT scan in 6 months. Please follow-up with Dr. rucker as scheduled Atrial fibrillation: - Continue to use Cardizem CD 360 mg daily - Please use digoxin 0.125 mg daily - Please use metoprolol 12.5 mg twice daily - Continue anticoagulation with Eliquis 2.5 mg twice daily - Follow up with cardiology in 1-2 weeks Diastolic heart failure -Continue 40 mg PO Lasix daily along with potassium supplement. - Continue aspirin 81 mg Hypothyroidism; - continue to use levothyroxine daily Continue rest of your home medications Please follow-up with your family doctor within 1 week. Follow-up with Dr. Rucker as scheduled on 03/28/17 Please follow up with cardiology in 1-2 weeks. They will call you to make an appointment. Current Hospital Diet Patient's current hospital diet: AHA Diet (Heart Healthy) Discharge Diet Recommended Diet: AHA Diet (Heart Healthy) Pending Studies Studies pending at discharge: no Medical Emergencies . Who to Call and When: Medical Emergencies: If at any time you feel your situation is an emergency, please call 911 immediately. . Non-Emergent Contact Non-Emergency issues call your: Primary Care Provider, Orthopedic Physician . . "Provider Documentation" section prepared by Jess Benitez. . VTE Core Measure Inpt VTE Proph given/why not?: Other Anticoagulation (Eliquis) Resident Tracking Resident Involvement: Resident Care Provided Care Provided: Adult Hospital Medicine
[2017-03-22] MEDS: LEVOFLOXACIN 750 MG TAB PO SCH (11:02)
[2017-03-22 11:36] VITALS: BP 150/81; PULSE 85; TEMP 36.4; O2SAT 97
--- NOTE | 2017-03-22 18:09 | Discharge Summary ---
Discharge Summary Date of Service Mar 22, 2017. (Jess Benitez MD) Discharge Summary Admission Date: Mar 16, 2017 at 09:08 Discharge Disposition: Home with services Principal Diagnosis: COPD exacerbation Problems/Secondary Diagnoses: (1) Atrial fibrillation with RVR Status: Chronic (2) Hypoxia Status: Chronic Diastolic heart failure Pulmonary nodule Immunizations: Have You Had Influenza Vaccine: No History of Tetanus Vaccine?: utd History of Hepatitis B Vaccine: No Consultations: Pulmonology, cardiology (Jess Benitez MD) Medication Reconciliation New Medications: Prednisone (Prednisone) 20 Mg Tab 20 MG PO UD, #16 TAB Prednisone (Prednisone) 10 Mg Tab 10 MG PO DAILY, #30 TAB Digoxin (Digoxin) 0.125 Mg Tab 0.125 MG PO DAILY@16 for 30 Days, TAB Levalbuterol (Levalbuterol HCl) 0.63 Mg/3 Ml Nebu 0.63 MG INH Q6R for 30 Days Metoprolol Tartrate (Lopressor) 25 Mg Tab 12.5 MG PO BID for 30 Days, TAB Continued Medications: Alprazolam (Xanax) 0.25 Mg Tab 0.25 MG PO Q12 PRN for Anxiety, TAB Apixaban (Eliquis) 2.5 Mg Tab 2.5 MG PO BID Aspirin (Aspirin) 81 Mg Tab 81 MG PO Q24H Diltiazem HCl (Diltiazem HCl ER) 360 Mg Tabcr 360 MG PO DAILY Docusate Sodium (Docusate Sodium) 100 Mg Cap 100 MG PO TID PRN for Constipation Ergocalciferol (Vitamin D 39917 Unit) 50,000 Unit Cap 16151 INTER.UNIT PO WK wednesdays Ferrous Sulfate (Ferrous Sulfate) 325 Mg Tab 325 MG PO Q2D Fluticasone Furoate-Vilanterol (Breo Ellipta) 1 Inh Inh 1 INHA PO DAILY Furosemide (Lasix) 40 Mg Tab 40 MG PO UD, TAB Home O2 Therapy (Oxygen) Gas 3-4 LITERS NA HS Latanoprost (Latanoprost) 37 Drops/2.5 Ml Soln 1 DROP OPB HS Levothyroxine Sodium (Levothyroxine Sodium) 75 Mcg Tab 75 MCG PO QAM, TAB Multiple Vitamins W/ Minerals (Multi Complete) 1 Cap Cap 1 CAP PO DAILY Potassium Chloride (Klor-Con M20) 20 Meq Tabcr 20 MEQ PO BID Sucralfate (Carafate) 1 Gm Tab 1 GM PO TID, TAB Travoprost (Travatan Z) 0.004 % Bassam 1 DROPS OP HS, #1 BTL 5 Refills Discontinued Medications: Ipratropium-Albuterol (Combivent Respimat) 1 Aer Aer 1 PUFFS INH QID, INH Prednisone (Prednisone) 5 Mg Tab 1.5 TAB PO DAILY, TAB Discharge Exam Doing very well today. Denies chest pain, shortness of breath, palpitations Review of Systems: Constitutional: No fever, No chills Eyes: No worsening of vision ENT: + hearing loss Respiratory: No cough, No sputum, No shortness of breath Cardiovascular: No chest pain Abdomen: No pain, No nausea Musculoskeletal: No joint pain Genitourinary - Female: No dysuria Neurologic: No memory loss, No paralysis Psychiatric: No depression symptoms Endocrine: No fatigue Hematologic / Lymphatic: No abnormal bleeding/bruising Physical Exam: General Appearance: WD/WN Eyes: normal inspection ENT: + pertinent finding (Hearing loss) Neck: supple Respiratory/Chest: chest non-tender, lungs clear, normal breath sounds Cardiovascular: regular rate, rhythm, no edema Abdomen / GI: normal bowel sounds, soft Extremities: normal inspection, no pedal edema Neurologic/Psychiatric: alert, normal mood/affect, oriented x 3 (Jess Benitez MD) Hospital Course 87-year-old female with past medical history of COPD on continuous O2, multiple recent admissions for COPD exacerbation, severe aortic stenosis status post TAVR in September 2016, atrial fibrillation, diastolic congestive heart failure presented with worsening shortness of breath which started a few days prior to arrival. In the ER she was given Solu-Medrol 80 mg IV 1 dose, albuterol/ipratropium nebulizer, Ativan 0.5 mg 1 dose, and rationale 2 g 1 dose, Levaquin 750 mg 1 dose and diltiazem 10 mg 1 dose. Pulmonology and cardiology were consulted. She had extensive workup for the shortness of breath including a V/Q scan which was indeterminate. Her venous Dopplers were negative. CT chest was ordered which revealed 12 mm irregular marginated right apical pulmonary nodule and Minimally enlarged 11 mm precarinal lymph node. Considering her other comorbidities, she would be a poor candidate for extensive workup of the pulmonary nodule. Recommended to get Repeat CT in 6 months to reassess the nodule. She was discharged with prednisone 40 mg to be used daily for 3 days and eventually be tapered to 10 mg daily. Her Combivent was switched to levalbuterol 0.63 nebulizer and she was recommended to use he has oxygen 4 L via nasal cannula Cardiology was also consulted who had recommended Lasix 40 mg by mouth daily for diastolic heart failure For atrial fibrillation: She was on diltiazem 120 mg 3 times a day and was discharged on 360 mg CD. She was also started on digoxin 0.125mcg daily. She had nonsustained V. tach and hence 12.5 mg twice a day of metoprolol was also added. Anticoagulation will be continued with Eliquis. Was recommended to follow up with pulmonology as 03/28. Total Time Spent: Greater than 30 minutes This includes examination of the patient, discharge planning, medication reconciliation, and communication with other providers. (Jess Benitez MD) Resident Physician Supervision Note: I was present with Dr. Benitez during the history and exam. I discussed the case with the resident and agree with the findings and plan as documented in the note. Documented By: Holden Grant Total Time Spent: Less than 30 minutes (Holden Grant.,D.O.) Discharge Instructions Please refer to the electronic Patient Visit Report (Discharge Instructions) for additional information. (Jess Benitez MD) Follow-Up Follow-up with pulmonology on 03/28 Cardiology in 2 weeks PCP in about a week (Jess Benitez MD) Resident Tracking Resident Involvement: Resident Care Provided Care Provided: Adult [facility] (Jess Benitez MD)
== END 2017-03-22 13:51 | disposition home health service (06) | DRG 291 ==
LOC: EDBD 05:56 → C.EDB 05:59 → C.2T 09:08 → ENRESERV 09:29 → C.4E 03-20 13:07
PROVIDERS: ADMIT Hospitalist; ATTEND Family Medicine
DX: I50.33 Acute on chronic diastolic (congestive) heart failure (principal); J96.21 Acute and chronic respiratory failure with hypoxia; J96.22 Acute and chronic respiratory failure with hypercapnia; J44.1 Chronic obstructive pulmonary disease with (acute) exacerbation; I47.2 Ventricular tachycardia; I50.21 Acute systolic (congestive) heart failure; I48.0 Paroxysmal atrial fibrillation; R91.1 Solitary pulmonary nodule; N18.2 Chronic kidney disease, stage 2 (mild); I27.22 Pulmonary hypertension due to left heart disease; I27.23 Pulmonary hypertension due to lung diseases and hypoxia; G47.33 Obstructive sleep apnea (adult) (pediatric); D72.829 Elevated white blood cell count, unspecified; Z66 Do not resuscitate; Z99.81 Dependence on supplemental oxygen; Z86.79 Personal history of other diseases of the circulatory system; Z95.2 Presence of prosthetic heart valve; Z87.891 Personal history of nicotine dependence; Z79.01 Long term (current) use of anticoagulants; Z79.51 Long term (current) use of inhaled steroids; Z79.52 Long term (current) use of systemic steroids; Z79.82 Long term (current) use of aspirin; Z79.899 Other long term (current) drug therapy; Z91.040 Latex allergy status; Z91.041 Radiographic dye allergy status; Z88.0 Allergy status to penicillin; Z88.2 Allergy status to sulfonamides; Z82.49 Family history of ischemic heart disease and other diseases of the circulatory system

== ENCOUNTER 2017-04-14 08:42 | Inpatient (IN) | payer OTHER ==
[2017-04-14] VITALS (10 sets, daily range): BP systolic 110–130; BP diastolic 64–81; PULSE 86–106; TEMP 36.3–36.7; O2SAT 91–100; Ht 154.9 cm; Wt 54.1 kg
[~2017-04-14] VITALS: Ht 154.9 cm; Wt 54.1 kg
[~2017-04-14 08:42] MED LIST changes: +ALPR0.25 PO; +APIX1TAB PO; -ATRINS NEB; +FLUT1INH PO; +FRS/40 PO; -HYDR12.55 PO; +LNX125 PO; +LPR25 PO; +MCRK20 PO; +MULT1CAP16 PO; -NTRSLP4 SL; +PRED10TA PO; +PRED20TA PO; -SPRIN/30 INH; +SUCR1TAB29 PO; -SYMIN/8045 INH; +TRAV0.00 OP; -VNTHFA/IN INH; +XPNINS INH; -XPNINS NEB; -XRL15 PO
[2017-04-14] MEDS ORDERED: LEVALBUTEROL 1.25MG/3ML NEB INH STA (08:52)
[2017-04-14] MEDS ORDERED: SODIUM CHLORIDE 0.9% 1000ML 500 ML IV ONE (08:52)
[2017-04-14] MEDS ORDERED: LORAZEPAM 2 MG/ML 1 ML VIAL IV STA (08:54)
[2017-04-14] MEDS ORDERED: MAGNESIUM SULFATE 1GM / D5W 1 GM BAG IV STA (08:54)
[2017-04-14] MEDS ORDERED: METHYLPREDNISOLONE 125 MG VIAL IV STA (08:54)
--- NOTE | 2017-04-14 08:59 | EMERGENCY ROOM VISIT NOTE ---
History Report prepared by Luana: Evie Dorado Under the Supervision of: Dr. Andrea Ceron M.D. First contact with patient: 08:45 Chief Complaint: RESPIRATORY PROBLEMS Stated Complaint: BREATHING DIFFICULTY History of Present Illness The patient is a 87 year old female who presents to the Emergency Room brought in by EMS with complaints of worsening shortness of breath over the past few days. She was brought to the ED via EMS. EMS reports she has a history of COPD and atrial fibrillation. She normally wears 4 L NC at home. EMS states she was 85% on 4L, so they placed her on 8 L NC, as well as a DuoNeb and Albuterol. She also complained of nausea and was given Zofran in the field. The patient has a history of COPD, atrial fibrillation, and aortic stenosis. She is currently taking daily Eliquis. Source of History: patient, EMS Onset: EQUINE VET Position: chest Timing: worsening Modifying Factors (Relieving): oxygen, other (Albuterol and DuoNeb) Associated Symptoms: + nausea, No neck pain, No chest pain, No abdominal pain, No back pain Review of Systems See HPI for pertinent positives & negatives. A total of 10 systems reviewed and were otherwise negative. 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 (20) Neck pain (21) Pneumonia (22) Pneumonia (23) Recurrent falls (24) Respiratory distress (25) Right humeral fracture (26) Severe aortic stenosis by prior echocardiogram (27) SOB (shortness of breath) Family History Heart disease Hypertension Social History Smoking Status: Former Smoker Alcohol Use: none Drug Use: none Marital Status: Housing Status: lives alone Occupation Status: retired Current/Historical Medications Scheduled Apixaban (Eliquis), 2.5 MG PO BID Aspirin (Aspirin), 81 MG PO Q24H Digoxin (Digoxin), 0.125 MG PO DAILY@16 Diltiazem HCl (Diltiazem HCl ER), 360 MG PO DAILY Ergocalciferol (Vitamin D 17238 Unit), 50,000 INTER.UNIT PO WK Ferrous Sulfate (Ferrous Sulfate), 325 MG PO Q2D Fluticasone Furoate-Vilanterol (Breo Ellipta), 1 INHA PO DAILY Furosemide (Lasix), 40 MG PO UD Home O2 Therapy (Oxygen), 3-4 LITERS NA HS Latanoprost (Latanoprost), 1 DROP OPB HS Levalbuterol (Levalbuterol HCl), 0.63 MG INH Q6R Levothyroxine Sodium (Levothyroxine Sodium), 75 MCG PO QAM Metoprolol Tartrate (Lopressor), 12.5 MG PO BID Multiple Vitamins W/ Minerals (Multi Complete), 1 CAP PO DAILY Potassium Chloride (Klor-Con M20), 20 MEQ PO BID Prednisone (Prednisone), 10 MG PO DAILY Sucralfate (Carafate), 1 GM PO TID Travoprost (Travatan Z), 1 DROPS OP HS Scheduled PRN Alprazolam (Xanax), 0.5 MG PO Q12 PRN for Anxiety Docusate Sodium (Docusate Sodium), 100 MG PO TID PRN for Constipation Allergies Coded Allergies: Clonidine (Verified Allergy, Mild, SHORTNESS OF BREATH, 04/14/17) Iodinated Diagnostic Agents (Verified Allergy, Unknown, "IT JUST AFFECTS ME AND I CAN'T EXPLAIN IT", 04/14/17) Latex1 -Allergic Contact Dermititis (Verified Allergy, Unknown, RASH, ) Penicillins (Verified Allergy, Unknown, UNKNOWN, 04/14/17) Sulfa Antibiotics (Verified Allergy, Unknown, "SWELLING IN MOUTH AND DRIED OUT", 04/14/17) Physical Exam Vital Signs Date Time Temp Pulse Resp B/P (MAP) Pulse Ox O2 Delivery O2 Flow Rate FiO2 04/14/17 11:12 94 20 142/71 100 BiPAP 04/14/17 10:40 100 BiPAP 6.0 50 04/14/17 10:04 89 28 167/70 100 BiPAP 04/14/17 09:14 90 31 100 BiPAP/CPAP 50 04/14/17 09:12 90 100 50 04/14/17 09:05 37.5 94 25 178/62 94 Nasal Cannula 6.0 04/14/17 09:02 94 Nasal Cannula 6.0 04/14/17 09:00 106 04/14/17 08:53 94 Nasal Cannula 6.0 Physical Exam GENERAL: Patient is a healthy-appearing well-nourished 87 year old female. She appears uncomfortable. HEAD: Normocephalic atraumatic EYES: Ocular movements intact pupils equal and react to light OROPHARYNX mucous membranes are moist no exudates present no erythema or edema present NECK: Supple no nuchal rigidity CHEST: Good equal expansion LUNGS: Clear and equal to auscultation CARDIAC: Normal S1 and S2 ABDOMEN: Soft nontender no guarding BACK: No CVA tenderness EXTREMITIES: No pain upon palpation normal muscle strength in all groups no clubbing cyanosis or edema NEURO: Patient is following commands and answering questions appropriately. Alert and oriented x3 Cranial Nerves 2-12 grossly intact Medical Decision & Procedures ER Provider Diagnostic Interpretation: Radiology results as stated below per my review and radiologist interpretation: CHEST ONE VIEW PORTABLE CLINICAL HISTORY: Sepsis. COMPARISON STUDY: Chest CT March 19, 2017 and chest radiograph March 21, 2017. FINDINGS: A prosthetic aortic valve is noted. Mild cardiomegaly is unchanged. There is no pneumothorax. A trace right pleural effusion is noted with a moderate left pleural effusion. Interstitial thickening and bilateral opacities have increased since exam of March 21, 2017. IMPRESSION: 1. Interval increase in interstitial thickening consistent with pulmonary edema. 2. Left basilar opacity which could reflect atelectasis or pneumonia. 3. Moderate left and trace right pleural effusions. Electronically signed by: Fredis Canales M.D. 04/14/2017 9:34 AM Laboratory Results 04/14/17 09:39 Red Blood Count 3.88, Mean Corpuscular Volume 96.9, Mean Corpuscular Hemoglobin 31.4, Mean Corpuscular Hemoglobin Concent 32.4, Mean Platelet Volume 9.9, Neutrophils (%) (Auto) 76.4, Lymphocytes (%) (Auto) 13.8, Monocytes (%) (Auto) 8.7, Eosinophils (%) (Auto) 0.4, Basophils (%) (Auto) 0.1, Neutrophils # (Auto) 9.23, Lymphocytes # (Auto) 1.66, Monocytes # (Auto) 1.05, Eosinophils # (Auto) 0.05, Basophils # (Auto) 0.01 Test 04/14/17 09:39 04/14/17 09:53 04/14/17 10:35 White Blood Count 12.07 K/uL (4.8-10.8) Red Blood Count 3.88 M/uL (4.2-5.4) Hemoglobin 12.2 g/dL (12.0-16.0) Hematocrit 37.6 % (37-47) Mean Corpuscular Volume 96.9 fL (80-100) Mean Corpuscular Hemoglobin 31.4 pg (25-34) Mean Corpuscular Hemoglobin Concent 32.4 g/dl (32-36) Platelet Count 188 K/uL (130-400) Mean Platelet Volume 9.9 fL (7.4-10.4) Neutrophils (%) (Auto) 76.4 % Lymphocytes (%) (Auto) 13.8 % Monocytes (%) (Auto) 8.7 % Eosinophils (%) (Auto) 0.4 % Basophils (%) (Auto) 0.1 % Neutrophils # (Auto) 9.23 K/uL (1.4-6.5) Lymphocytes # (Auto) 1.66 K/uL (1.2-3.4) Monocytes # (Auto) 1.05 K/uL (0.11-0.59) Eosinophils # (Auto) 0.05 K/uL (0-0.5) Basophils # (Auto) 0.01 K/uL (0-0.2) RDW Standard Deviation 49.6 fL (36.4-46.3) RDW Coefficient of Variation 14.0 % (11.5-14.5) Immature Granulocyte % (Auto) 0.6 % Immature Granulocyte # (Auto) 0.07 K/uL (0.00-0.02) Prothrombin Time 11.4 SECONDS (9.0-12.0) Prothromb Time International Ratio 1.1 (0.9-1.1) Activated Partial Thromboplast Time 27.9 SECONDS (21.0-31.0) Partial Thromboplastin Ratio 1.1 Total Bilirubin 0.8 mg/dl (0.2-1) Aspartate Amino Transf (AST/SGOT) 17 U/L (15-37) Alanine Aminotransferase (ALT/SGPT) 25 U/L (12-78) Alkaline Phosphatase 65 U/L (45-117) Total Creatine Kinase 30 U/L (26-192) Creatine Kinase MB 0.8 ng/ml (0.5-3.6) Creatine Kinase MB Ratio 2.7 (0-3.0) Troponin I 0.027 ng/ml (0-0.045) Total Protein 6.4 gm/dl (6.4-8.2) Albumin 3.3 gm/dl (3.4-5.0) Globulin 3.1 gm/dl (2.5-4.0) Albumin/Globulin Ratio 1.1 (0.9-2) Digoxin Level 1.0 ng/ml (0.8-2.0) Bedside Lactic Acid Venous 1.12 mmol/L (0.90-1.70) Urine Color YELLOW Urine Appearance CLEAR (CLEAR) Urine pH 7.5 (4.5-7.5) Urine Specific [place] 1.014 (1.000-1.030) Urine Protein NEG (NEG) Urine Glucose (UA) NEG (NEG) Urine Ketones NEG (NEG) Urine Occult Blood NEG (NEG) Urine Nitrite NEG (NEG) Urine Bilirubin NEG (NEG) Urine Urobilinogen NEG (NEG) Urine Leukocyte Esterase NEG (NEG) Urine WBC (Auto) 1-5 /hpf (0-5) Urine RBC (Auto) 0-4 /hpf (0-4) Urine Hyaline Casts (Auto) 0 /lpf (0-5) Urine Epithelial Cells (Auto) 5-10 /lpf (0-5) Urine Bacteria (Auto) NEG (NEG) Arterial Blood pH 7.44 (7.35-7.45) Arterial Blood Partial Pressure CO2 49 mmHg (35-46) Arterial Blood Partial Pressure O2 143 mm/Hg (80-95) Arterial Blood HCO3 32 mmol/L (19-24) Arterial Blood Oxygen Saturation 99.0 % (90-95) Arterial Blood Base Excess 6.8 mEq/L (-9-1.8) Arterial Blood Gas Delivery 50% Onesimo Test POS (POS) Labs reviewed by ED physician. Medications Administered Medications (Trade) Dose Ordered Sig/Yared Route Start Time Stop Time Status Last Admin Dose Admin Sodium Chloride 500 ml @ 999 mls/hr Q31M ONCE IV 04/14/17 08:52 04/14/17 09:22 DC 04/14/17 09:12 999 MLS/HR Levalbuterol (Xopenex 1.25MG/ 3ML Neb) 1.25 mg NOW STAT INH 04/14/17 08:52 04/14/17 08:55 DC 04/14/17 09:12 1.25 MG Methylprednisolone Sodium Succinate (Solu-Medrol IV) 60 mg NOW STAT IV 04/14/17 08:54 04/14/17 08:56 DC 04/14/17 09:11 60 MG Magnesium Sulfate (Magnesium Sulfate) 1 gm NOW STAT IV 04/14/17 08:54 04/14/17 08:56 DC 04/14/17 09:12 1 GM Lorazepam (Ativan Inj) 0.5 mg NOW STAT IV 04/14/17 08:54 04/14/17 08:56 DC 04/14/17 09:12 0.5 MG Furosemide (Lasix Inj) 40 mg NOW STAT IV 04/14/17 09:45 04/14/17 09:47 DC 04/14/17 10:11 40 MG Ceftriaxone Sodium (Rocephin Inj) 1 gm NOW STAT IV 04/14/17 09:45 04/14/17 09:47 DC 04/14/17 10:12 1 GM Levofloxacin (Levaquin / D5W) 750 mg NOW STAT IV 04/14/17 09:45 04/14/17 09:47 DC 04/14/17 10:19 750 MG Vancomycin HCl (Vancomycin 1gm/ 270ml Nss) 1 gm NOW STAT IV 04/14/17 09:45 04/14/17 09:47 DC 04/14/17 10:19 1 GM ECG Indication: SOB/dyspnea Rate (beats per minute): 95 Rhythm: atrial fibrillation Findings: T-wave inversion (Lateral), no acute ischemic change, no ectopy ED Course 0845: Past medical records reviewed. The patient was evaluated in room A9. A complete history and physical examination was performed. 0852: Levalbuterol 1.25 mg INH, Sodium Chloride 550 mL IV. 0854: Lorazepam 0.5 mg IV, Magnesium Sulfate 1 gm IV, Solu-Medrol 60 mg IV. 0918: I reevaluated the patient. She is calm and resting comfortably on Bi-Pap. 0945: Ordered Vancomycin HCl 1 gm IV, Levofloxacin 750 mg IV, Ceftriaxone Sodium 1 gm IV, Furosemide 40 mg IV 1022: I spoke with Dr. Wall [facility] Hospitalist. We discussed the patients case. Dr. Wall is requesting an ICU consult. The patient will be further evaluated. 1043: I discussed the patient's case with Dr. Thompson [facility] Critical Care. The patient will be further evaluated. Medical Decision Prior records/ancillary studies reviewed. Triage Nursing notes reviewed. The patient's history was concerning for respiratory difficulties. Differential diagnosis: Etiologies such as infections, reactive airway disease, pneumonia, pneumothorax , COPD, CHF, cardiac ischemia, pulmonary embolism, musculoskeletal, gastrointestinal, as well as others were entertained. This is an 87-year-old female who presents emergency department complaining of hypoxia and increased oxygen requirement at home. Upon arrival to emergency department the patient was placed on BiPAP and given breathing treatments. She was also given Solu-Medrol. She appears to have increasing pulmonary edema on her chest x-ray therefore was given Lasix. I did discuss the case with both the hospitalist as well as the timber robber. Patient was in agreement with the treatment plan. Head Trauma GCS Score: 7 Medication Reconcilliation Current Medication List: was personally reviewed by me Blood Pressure Screening Patient's blood pressure: Elevated blood pressure Consults Time Called: 1020 Consulting Physician: Dr. Wall [facility] Hospitalist Returned Call: 1022 We discussed the patients case. Dr. Wall is requesting an ICU consult. The patient will be further evaluated. Additional Consults: Time Called: 1026 Consulted Physician: Dr. Thompson, [facility] Critical Care Returned Call: [phone] Additional Comments: I discussed the patients case with Dr. Thompson [facility] Critical Care. The patient will be further evaluated. Impression Primary Impression: Hypoxia Additional Impression: CHF exacerbation Scribe Attestation The scribe's documentation has been prepared under my direction and personally reviewed by me in its entirety. I confirm that the note above accurately reflects all work, treatment, procedures, and medical decision making performed by me. Departure Information Dispostion Being Evaluated By Hospitalist Sheila Salomon M.D. (PCP) Patient Instructions My [facility] Problem Qualifiers Additional Impression: CHF exacerbation Congestive heart failure type: unspecified congestive heart failure type Qualified Codes: I50.9 - Heart failure, unspecified
--- NOTE | 2017-04-14 09:36 | DIAGNOSTIC IMAGING REPORT ---
CHEST ONE VIEW PORTABLE CLINICAL HISTORY: Sepsis. COMPARISON STUDY: Chest CT March 19, 2017 and chest radiograph March 21, 2017. FINDINGS: A prosthetic aortic valve is noted. Mild cardiomegaly is unchanged. There is no pneumothorax. A trace right pleural effusion is noted with a moderate left pleural effusion. Interstitial thickening and bilateral opacities have increased since exam of March 21, 2017. IMPRESSION: 1. Interval increase in interstitial thickening consistent with pulmonary edema. 2. Left basilar opacity which could reflect atelectasis or pneumonia. 3. Moderate left and trace right pleural effusions. Electronically signed by: Fredis Canales M.D. 04/14/2017 9:34 AM Dictated Date/Time: 04/14/2017 9:33 AM
[2017-04-14] MEDS ORDERED: LEVAQUIN 750MG / 150ML D5W IV STA (09:45)
[2017-04-14] MEDS ORDERED: FUROSEMIDE 40 MG/4 ML VIAL IV STA (09:45)
[2017-04-14] MEDS ORDERED: CEFTRIAXONE SOD INJ 1 GM ADDVIAL IV STA (09:45)
[2017-04-14] MEDS ORDERED: VANCOMYCIN 1GM/270ML NSS IV STA (09:45)
[2017-04-14 09:56] LABS: BASO % 0.1 %; BASO ABS # 0.01 K/uL (0-0.2); COMPLETE YES; EOS % 0.4 %; HEMATOCRIT 37.6 % (37-47); IG% 0.6 %; LYMPH % 13.8 %; LYMPH ABS # 1.66 K/uL (1.2-3.4); MEAN CELL VOLUME 96.9 fL (80-100); MEAN CORPUSCULAR HEMOGLOBIN 31.4 pg (25-34); MEAN CORPUSCULAR HGB CONC 32.4 g/dl (32-36); MEAN PLATELET VOLUME 9.9 fL (7.4-10.4); MONO % 8.7 %; NEUT % 76.4 %; PLATELET COUNT 188 K/uL (130-400); RED BLOOD COUNT 3.88 M/uL (4.2-5.4); WHITE BLOOD COUNT 12.07 K/uL (4.8-10.8)
[2017-04-14 10:05] LABS: INR 1.1 (0.9-1.1); PARTIAL THROMBOPLASTIN RATIO 1.1; PROTHROMBIN TIME (PATIENT) 11.4 SECONDS (9.0-12.0)
[2017-04-14 10:14] LABS: BUN/CREATININE RATIO 19.5 (10-20); CALCIUM 8.5 mg/dl (8.5-10.1); CREATININE 0.77 mg/dl (0.60-1.20); POTASSIUM 3.1 mmol/L (3.5-5.1)
[2017-04-14 10:19] LABS: ALB/GLOB RATIO 1.1 (0.9-2); CKMB/CK RATIO 2.7 (0-3.0)
[2017-04-14 10:55] LABS: ARTERIAL BLOOD GAS BASE EXCESS 6.8 mEq/L (-9-1.8); ARTERIAL BLOOD GAS HCO3 32 mmol/L (19-24); ARTERIAL BLOOD GAS PO2 143 mm/Hg (80-95); ARTERIAL BLOOD GAS pH 7.44 (7.35-7.45)
[2017-04-14 10:56] LABS: ALLEN TEST POS (POS); O2 ADMINISTRATION 50%
[2017-04-14 10:58] LABS: URINE APPEARANCE CLEAR (CLEAR); URINE BILIRUBIN NEG (NEG); URINE COLOR YELLOW; URINE NITRITE NEG (NEG); URINE PH 7.5 (4.5-7.5); URINE SPECIFIC GRAVITY 1.014 (1.000-1.030); UROBILINOGEN NEG (NEG); ZZURINE CULT IF INDIC CATH NO
[2017-04-14 10:59] LABS: MANUAL MICROSCOPIC REQUIRED? NO; REVIEW REQ? NO
--- NOTE | 2017-04-14 11:00 | History and Physical ---
History & Physical Date & Time of Service: Apr 14, 2017 at 10:59 Chief Complaint: Breathing Difficulty Primary Care Physician: Sheila Hurtado M.D. History of Present Illness Source: patient, hospital records Ms. Lane is a 87 year old woman here for respiratory failure from home. She has been wearing 4L O2 since her discharge Mar 16 for COPD exacerbation. She has been having worsening sob over the past few days, however she is not able to give much history right now due to bipap mask, drowsiness and she is very hard of hearing. She does say that she feels that her breathing is better since receiving lasix and on the bipap. She has a past medical history of atrial fibrillation on Eliquis, copd, aortic stenosis, hypothyroid. Past Medical/Surgical History Medical Problems: (1) Anxiety Status: Chronic (2) Asthma Status: Chronic (3) Atrial fibrillation with RVR Status: Chronic (4) Back pain Status: Resolved (5) Back pain Status: Resolved (6) Benign hypertension Status: Chronic (7) Bronchitis Status: Resolved (8) Cataract Status: Chronic (9) Critical stenosis of aortic valve Status: Resolved (10) Dehydration Status: Resolved (11) Disorder of gallbladder Status: Chronic (12) Dyspnea Status: Chronic (13) Fall Status: Resolved (14) Humeral head fracture Status: Resolved (15) Hypoxia Status: Chronic (16) Kidney disease Status: Chronic (17) melanoma Status: Resolved (18) Neck pain Status: Resolved (19) Pneumonia Status: Resolved (20) Recurrent falls Status: Chronic (21) Right humeral fracture Status: Resolved (22) SOB (shortness of breath) Status: Chronic Family History Heart disease Hypertension Social History Smoking Status: Former Smoker Drug Use: none Marital Status: Housing status: lives alone Occupational Status: retired Immunizations History of Influenza Vaccine: No History of Tetanus Vaccine?: utd History of Hepatitis B Vaccine: No Allergies Coded Allergies: Clonidine (Verified Allergy, Mild, SHORTNESS OF BREATH, 04/14/17) Iodinated Diagnostic Agents (Verified Allergy, Unknown, "IT JUST AFFECTS ME AND I CAN'T EXPLAIN IT", 04/14/17) Latex1 -Allergic Contact Dermititis (Verified Allergy, Unknown, RASH, ) Penicillins (Verified Allergy, Unknown, UNKNOWN, 04/14/17) Sulfa Antibiotics (Verified Allergy, Unknown, "SWELLING IN MOUTH AND DRIED OUT", 04/14/17) Home Medications Scheduled Apixaban (Eliquis), 2.5 MG PO BID Aspirin (Aspirin), 81 MG PO Q24H Digoxin (Digoxin), 0.125 MG PO DAILY@16 Diltiazem HCl (Diltiazem HCl ER), 360 MG PO DAILY Ergocalciferol (Vitamin D 63389 Unit), 50,000 INTER.UNIT PO WK Ferrous Sulfate (Ferrous Sulfate), 325 MG PO Q2D Fluticasone Furoate-Vilanterol (Breo Ellipta), 1 INHA PO DAILY Furosemide (Lasix), 40 MG PO UD Home O2 Therapy (Oxygen), 3-4 LITERS NA HS Latanoprost (Latanoprost), 1 DROP OPB HS Levalbuterol (Levalbuterol HCl), 0.63 MG INH Q6R Levothyroxine Sodium (Levothyroxine Sodium), 75 MCG PO QAM Metoprolol Tartrate (Lopressor), 12.5 MG PO BID Multiple Vitamins W/ Minerals (Multi Complete), 1 CAP PO DAILY Potassium Chloride (Klor-Con M20), 20 MEQ PO BID Prednisone (Prednisone), 10 MG PO DAILY Sucralfate (Carafate), 1 GM PO TID Travoprost (Travatan Z), 1 DROPS OP HS Scheduled PRN Alprazolam (Xanax), 0.5 MG PO Q12 PRN for Anxiety Docusate Sodium (Docusate Sodium), 100 MG PO TID PRN for Constipation Physical Exam Vital Signs Date Time Temp Pulse Resp B/P (MAP) Pulse Ox O2 Delivery O2 Flow Rate FiO2 04/14/17 10:04 89 28 167/70 100 BiPAP 04/14/17 09:14 90 31 100 BiPAP/CPAP 50 04/14/17 09:12 90 100 50 04/14/17 09:05 37.5 94 25 178/62 94 Nasal Cannula 6.0 04/14/17 09:02 94 Nasal Cannula 6.0 04/14/17 09:00 106 04/14/17 08:53 94 Nasal Cannula 6.0 General: no distress Eyes: normal inspection, PERLL Respiratory: chest non tender, diminished breath sounds, no respiratory distress , no accessory muscle use Cardiac: irregular rate and rhythm, no rub or gallop, no murmur, no edema, no jvd GI/: active bowel sounds, no abd pain or tenderness, soft, non distended Extremities: normal range of motion, normal strength, non tender Neuro/Psych: alert and oriented x 3, normal mood and affect Skin: normal color, dry Diagnostics Laboratory Results Results Past 24 Hours Test 04/14/17 09:39 04/14/17 09:53 04/14/17 10:35 Range/Units White Blood Count 12.07 4.8-10.8 K/uL Red Blood Count 3.88 4.2-5.4 M/uL Hemoglobin 12.2 12.0-16.0 g/dL Hematocrit 37.6 37-47 % Mean Corpuscular Volume 96.9 80-100 fL Mean Corpuscular Hemoglobin 31.4 25-34 pg Mean Corpuscular Hemoglobin Concent 32.4 32-36 g/dl Platelet Count 188 130-400 K/uL Mean Platelet Volume 9.9 7.4-10.4 fL Neutrophils (%) (Auto) 76.4 % Lymphocytes (%) (Auto) 13.8 % Monocytes (%) (Auto) 8.7 % Eosinophils (%) (Auto) 0.4 % Basophils (%) (Auto) 0.1 % Neutrophils # (Auto) 9.23 1.4-6.5 K/uL Lymphocytes # (Auto) 1.66 1.2-3.4 K/uL Monocytes # (Auto) 1.05 0.11-0.59 K/uL Eosinophils # (Auto) 0.05 0-0.5 K/uL Basophils # (Auto) 0.01 0-0.2 K/uL RDW Standard Deviation 49.6 36.4-46.3 fL RDW Coefficient of Variation 14.0 11.5-14.5 % Immature Granulocyte % (Auto) 0.6 % Immature Granulocyte # (Auto) 0.07 0.00-0.02 K/uL Prothrombin Time 11.4 9.0-12.0 SECONDS Prothromb Time International Ratio 1.1 0.9-1.1 Activated Partial Thromboplast Time 27.9 21.0-31.0 SECONDS Partial Thromboplastin Ratio 1.1 Sodium Level 139 136-145 mmol/L Potassium Level 3.1 3.5-5.1 mmol/L Chloride Level 100 98-107 mmol/L Carbon Dioxide Level 34 21-32 mmol/L Anion Gap 5.0 3-11 mmol/L Blood Urea Nitrogen 15 7-18 mg/dl Creatinine 0.77 0.60-1.20 mg/dl Est Creatinine Clear Calc Drug Dose 39.5 ml/min Estimated GFR () 81.0 Estimated GFR (Non- 69.9 BUN/Creatinine Ratio 19.5 10-20 Random Glucose 152 70-99 mg/dl Calcium Level 8.5 8.5-10.1 mg/dl Total Bilirubin 0.8 0.2-1 mg/dl Aspartate Amino Transf (AST/SGOT) 17 15-37 U/L Alanine Aminotransferase (ALT/SGPT) 25 12-78 U/L Alkaline Phosphatase 65 45-117 U/L Total Creatine Kinase 30 26-192 U/L Creatine Kinase MB 0.8 0.5-3.6 ng/ml Creatine Kinase MB Ratio 2.7 0-3.0 Troponin I 0.027 0-0.045 ng/ml Total Protein 6.4 6.4-8.2 gm/dl Albumin 3.3 3.4-5.0 gm/dl Globulin 3.1 2.5-4.0 gm/dl Albumin/Globulin Ratio 1.1 0.9-2 Digoxin Level 1.0 0.8-2.0 ng/ml Bedside Lactic Acid Venous 1.12 0.90-1.70 mmol/L Arterial Blood pH 7.44 7.35-7.45 Arterial Blood Partial Pressure CO2 49 35-46 mmHg Arterial Blood Partial Pressure O2 143 80-95 mm/Hg Arterial Blood HCO3 32 19-24 mmol/L Arterial Blood Oxygen Saturation 99.0 90-95 % Arterial Blood Base Excess 6.8 -9-1.8 mEq/L Arterial Blood Gas Delivery 50% Onesimo Test POS POS Microbiology Results 04/14/17 Blood Culture, Received Pending 04/14/17 Blood Culture, Received Pending Diagnostic Radiology CXR IMPRESSION: 1. Interval increase in interstitial thickening consistent with pulmonary edema. 2. Left basilar opacity which could reflect atelectasis or pneumonia. 3. Moderate left and trace right pleural effusions. EKG Atrial fibrillation Left axis deviation Non-specific intra-ventricular conduction block T wave abnormality, consider lateral ischemia Abnormal ECG When compared with ECG of 16-MAR-2017 06:06, ST more depressed Lateral leads T wave inversion more evident in Lateral leads Impression Assessment and Plan Ms. Lane is an 87 year old woman here for acute respiratory failure with hypoxia due to hospital acquired pneumonia and acute on chronic heart failure with preserved ejection fraction Acute respiratory failure with hypoxia, HAP, acute on chronic heart failure with preserved EF, COPD - admit telemetry - consult pulmonology - 40 lasix BID, Xopenex q4h, - levaquin, vancomycin, aztreonam - ABG showed pO2 149 and CO2 of 49 - continue bipap Hypokalemia - K 3.1 - 40 mEq IV - recheck prp this afternoon Atrial fibrillation, CAD - continue eliquis, digoxin, diltiazem, metoprolol - prn iv metoprolol for hr >120 - continue ASA Hypthyroid - continue home levothyroxine Anxiety - continue prn alprazolam DVT proph - Eliquis DNR Resuscitation Status DO NOT RESUSCITATE
--- NOTE | 2017-04-14 11:51 | Critical Care Consultation ---
Critical Care Consultation Date of Consultation: Apr 14, 2017. Attending Physician: Reason for Consultation: Respiratory Distress History of Present Illness This is a 87 yo F Hx COPD on home Oxygen, multiple hospitalizations for COPD exacerbation, Diastolic CHF, Severe Aortic Stenosis s/p TAVR in September 2016, Atrial Fibrillation, Diastolic cHF presenting with SOB. ON 03/22 She had extensive workup for the shortness of breath including a V/Q scan which was indeterminate. Her venous Dopplers were negative. CT chest was ordered which revealed 12 mm irregular marginated right apical pulmonary.nodule and Minimally enlarged 11 mm precarinal lymph node.She was discharged with prednisone 40 mg to be used daily for 3 days and eventually be tapered to 10 mg daily.Her Combivent was switched to levalbuterol 0.63 nebulizer and she was recommended to use he has oxygen 4 L via nasal cannula. Cardiology was also consulted who had recommended Lasix 40 mg by mouth daily for diastolic heart failure.History of the current encounter was limited due to sedation with Ativan. SHe presents with worsening SOB. She is on Oxygen 4 L NC at home. Per ED note, EMS states she was 85% on 4L, so they placed her on 8 L NC, as well as a DuoNeb and Albuterol. In the ED, White ct 12. CXR showed interstitial thickening consistent with pulmonary edema and Left basilar opacity which could reflect atelectasis or pneumonia.She was given Xopenex, Furosemide 40 mg, 1gm Ceftriaxone, Levaquin, Solumedrol 60,1 L BolusNS, 1 gm Mag Sulfate and Ativan. She was placed on 6 L NC then placed on BIPAP at 50% FIO2 Past Medical/Surgical History (1) Anxiety Status: Chronic (2) Asthma Status: Chronic (3) Atrial fibrillation with RVR Status: Chronic (4) Back pain Status: Resolved (5) Back pain Status: Resolved (6) Benign hypertension Status: Chronic (7) Bronchitis Status: Resolved (8) Cataract Status: Chronic (9) Critical stenosis of aortic valve Status: Resolved (10) Dehydration Status: Resolved (11) Disorder of gallbladder Status: Chronic (12) Dyspnea Status: Chronic (13) Fall Status: Resolved (14) Humeral head fracture Status: Resolved (15) Hypoxia Status: Chronic (16) Kidney disease Status: Chronic (17) melanoma Status: Resolved (18) Neck pain Status: Resolved (19) Pneumonia Status: Resolved (20) Recurrent falls Status: Chronic (21) Right humeral fracture Status: Resolved (22) SOB (shortness of breath) Status: Chronic Family History Heart disease Hypertension Social History Smoking Status: Former Smoker Drug Use: none Marital Status: Housing Status: lives alone Occupation Status: retired Allergies Coded Allergies: Clonidine (Verified Allergy, Mild, SHORTNESS OF BREATH, 04/14/17) Iodinated Diagnostic Agents (Verified Allergy, Unknown, "IT JUST AFFECTS ME AND I CAN'T EXPLAIN IT", 04/14/17) Latex1 -Allergic Contact Dermititis (Verified Allergy, Unknown, RASH, ) Penicillins (Verified Allergy, Unknown, UNKNOWN, 04/14/17) Sulfa Antibiotics (Verified Allergy, Unknown, "SWELLING IN MOUTH AND DRIED OUT", 04/14/17) Home Medications Scheduled Apixaban (Eliquis), 2.5 MG PO BID Aspirin (Aspirin), 81 MG PO Q24H Digoxin (Digoxin), 0.125 MG PO DAILY@16 Diltiazem HCl (Diltiazem HCl ER), 360 MG PO DAILY Ergocalciferol (Vitamin D 05187 Unit), 50,000 INTER.UNIT PO WK Ferrous Sulfate (Ferrous Sulfate), 325 MG PO Q2D Fluticasone Furoate-Vilanterol (Breo Ellipta), 1 INHA PO DAILY Furosemide (Lasix), 40 MG PO UD Home O2 Therapy (Oxygen), 3-4 LITERS NA HS Latanoprost (Latanoprost), 1 DROP OPB HS Levalbuterol (Levalbuterol HCl), 0.63 MG INH Q6R Levothyroxine Sodium (Levothyroxine Sodium), 75 MCG PO QAM Metoprolol Tartrate (Lopressor), 12.5 MG PO BID Multiple Vitamins W/ Minerals (Multi Complete), 1 CAP PO DAILY Potassium Chloride (Klor-Con M20), 20 MEQ PO BID Prednisone (Prednisone), 10 MG PO DAILY Sucralfate (Carafate), 1 GM PO TID Travoprost (Travatan Z), 1 DROPS OP HS Scheduled PRN Alprazolam (Xanax), 0.5 MG PO Q12 PRN for Anxiety Docusate Sodium (Docusate Sodium), 100 MG PO TID PRN for Constipation Current Inpatient Medications Current Inpatient Medications Medications (Trade) Dose Ordered Sig/Yared Route Start Time Stop Time Status Last Admin Dose Admin Albuterol/ Ipratropium (Duoneb) 3 ml Q4R INH 04/14/17 12:00 05/14/17 11:59 UNV Levofloxacin 750 mg/Prmx 150 ml @ 100 mls/hr Q24H IV 04/14/17 11:15 04/21/17 11:14 UNV Vancomycin HCl 1000 mg/Sodium Chloride 270 ml @ 125 mls/hr Q12 IV 04/14/17 21:00 04/21/17 20:59 UNV Aztreonam 2000 mg/ Dextrose 110 ml @ 100 mls/hr Q8H IV 04/14/17 11:15 04/21/17 11:14 UNV Potassium Chloride 40 meq/ Prmx 100 ml @ 100 mls/hr Q1H IV 04/14/17 11:15 05/14/17 11:14 UNV Review of Systems Unable to obtain Physical Exam Date Time Temp Pulse Resp B/P (MAP) Pulse Ox O2 Delivery O2 Flow Rate FiO2 04/14/17 11:12 94 20 142/71 100 BiPAP 04/14/17 10:40 100 BiPAP 6.0 50 04/14/17 10:04 89 28 167/70 100 BiPAP 04/14/17 09:14 90 31 100 BiPAP/CPAP 50 04/14/17 09:12 90 100 50 04/14/17 09:05 37.5 94 25 178/62 94 Nasal Cannula 6.0 04/14/17 09:02 94 Nasal Cannula 6.0 04/14/17 09:00 106 04/14/17 08:53 94 Nasal Cannula 6.0 General Appearance: other (wearing BiPAP) Neck: normal range of motion, no tenderness Respiratory: rhonchi (left greater than right) Cardiovasular: regular rate/rhythm, systolic murmur Abdomen: non tender Laboratory Results Last 24 Hours Test 04/14/17 09:39 04/14/17 09:53 04/14/17 10:35 04/14/17 11:05 White Blood Count 12.07 K/uL Red Blood Count 3.88 M/uL Hemoglobin 12.2 g/dL Hematocrit 37.6 % Mean Corpuscular Volume 96.9 fL Mean Corpuscular Hemoglobin 31.4 pg Mean Corpuscular Hemoglobin Concent 32.4 g/dl Platelet Count 188 K/uL Mean Platelet Volume 9.9 fL Neutrophils (%) (Auto) 76.4 % Lymphocytes (%) (Auto) 13.8 % Monocytes (%) (Auto) 8.7 % Eosinophils (%) (Auto) 0.4 % Basophils (%) (Auto) 0.1 % Neutrophils # (Auto) 9.23 K/uL Lymphocytes # (Auto) 1.66 K/uL Monocytes # (Auto) 1.05 K/uL Eosinophils # (Auto) 0.05 K/uL Basophils # (Auto) 0.01 K/uL RDW Standard Deviation 49.6 fL RDW Coefficient of Variation 14.0 % Immature Granulocyte % (Auto) 0.6 % Immature Granulocyte # (Auto) 0.07 K/uL Prothrombin Time 11.4 SECONDS Prothromb Time International Ratio 1.1 Activated Partial Thromboplast Time 27.9 SECONDS Partial Thromboplastin Ratio 1.1 Sodium Level 139 mmol/L Potassium Level 3.1 mmol/L Chloride Level 100 mmol/L Carbon Dioxide Level 34 mmol/L Anion Gap 5.0 mmol/L Blood Urea Nitrogen 15 mg/dl Creatinine 0.77 mg/dl Est Creatinine Clear Calc Drug Dose 39.5 ml/min Estimated GFR () 81.0 Estimated GFR (Non- 69.9 BUN/Creatinine Ratio 19.5 Random Glucose 152 mg/dl Calcium Level 8.5 mg/dl Total Bilirubin 0.8 mg/dl Aspartate Amino Transf (AST/SGOT) 17 U/L Alanine Aminotransferase (ALT/SGPT) 25 U/L Alkaline Phosphatase 65 U/L Total Creatine Kinase 30 U/L Creatine Kinase MB 0.8 ng/ml Creatine Kinase MB Ratio 2.7 Troponin I 0.027 ng/ml Total Protein 6.4 gm/dl Albumin 3.3 gm/dl Globulin 3.1 gm/dl Albumin/Globulin Ratio 1.1 Digoxin Level 1.0 ng/ml Bedside Lactic Acid Venous 1.12 mmol/L Urine Color YELLOW Urine Appearance CLEAR Urine pH 7.5 Urine Specific [place] 1.014 Urine Protein NEG Urine Glucose (UA) NEG Urine Ketones NEG Urine Occult Blood NEG Urine Nitrite NEG Urine Bilirubin NEG Urine Urobilinogen NEG Urine Leukocyte Esterase NEG Urine WBC (Auto) 1-5 /hpf Urine RBC (Auto) 0-4 /hpf Urine Hyaline Casts (Auto) 0 /lpf Urine Epithelial Cells (Auto) 5-10 /lpf Urine Bacteria (Auto) NEG Arterial Blood pH 7.44 Arterial Blood Partial Pressure CO2 49 mmHg Arterial Blood Partial Pressure O2 143 mm/Hg Arterial Blood HCO3 32 mmol/L Arterial Blood Oxygen Saturation 99.0 % Arterial Blood Base Excess 6.8 mEq/L Arterial Blood Gas Delivery 50% Onesimo Test POS Diagnostic Results I have reviewed the initial chest x-ray from the ED Assessment & Plan I was requested to evaluate the patient by Dr. Wall of the hospitalist service. I performed a limited bedside ultrasound of the patient's lungs. She has a bilateral type a profile with changes more consistent with an infiltrative/ consolidative process in the left lung. There is a simple left sided pleural effusion. There is not a large enough margin for safe pleural drainage at this time. There does not appear to be loculation. I reviewed the patient's ABG, she is also saturating well and tolerating noninvasive ventilation. Reviewed the patient's chart and she is a DO NOT RESUSCITATE DO NOT INTUBATE. Patient does seem to have acute hypoxic respiratory failure, however this is significantly improved with interventions in the emergency department. I have discussed this case Dr. Wall who will admit the patient to telemetry at this time.
[2017-04-14] MEDS ORDERED: ALBUT/IPRATROP 3MG/0.5MG NEB 3 ML VIAL INH SCH (12:00)
[2017-04-14] MEDS ORDERED: ALPRAZOLAM 0.25 MG TAB PO PRN (12:15)
[2017-04-14] MEDS ORDERED: METOPROLOL TARTRATE 1 MG/ML VIAL IV PRN (12:15)
[2017-04-14] MEDS: ASPIRIN 81 MG ECTAB PO SCH (13:35)
[2017-04-14 13:39] LABS: BUN/CREATININE RATIO 18.7 (10-20); CREATININE 0.69 mg/dl (0.60-1.20)
[2017-04-14] MEDS: POTASSIUM CHLR 10 MEQ / WTR 10 MEQ in PREMIXED WATER 100 ML IV SCH ×6 (14:40→20:15)
[2017-04-14] MEDS: AZTREONAM IV 2,000 MG in DEXTROSE 5% 100ML 100 ML IV SCH ×2 (14:40→22:50)
[2017-04-14] MEDS ORDERED: VANCOMYCIN CONSULT ACTIVE PRN (15:15)
--- NOTE | 2017-04-14 15:15 | Pulmonary Consultation ---
History General Date of Service: Apr 14, 2017. Stated Complaint: Chf Exacerbation, Hypoxia, Pneumonia HPI The patient is a 87 year old female who presents to [facility] with complaints of Chf Exacerbation, Hypoxia, Pneumonia. The patient's primary care provider is Sheila Hurtado M.D.. Ms. Lane severe COPD on 4 L/m long-term oxygen therapy, aortic stenosis status post TAVR in September 2016, left ventricular hypertrophy, diastolic congestive heart failure, permanent atrial fibrillation on Eliquis who presents with several day history of worsening shortness of breath. She denied any fevers, chills, chest pain, lightheadedness or dizziness. She denied any sick contacts or recent travel. She stated that her symptoms are worse with exertion . She has had 4 admissions this year for COPD exacerbations and decompensated diastolic heart failure. Last admission being in February 2017. Vital signs upon arrival show a pulse of 106, temperature 37.5, respiratory rate of 25, blood pressure 178/62 saturating at 94% on 6 L nasal cannula. She was subsequently placed on BiPAP. Laboratory data shows a white blood cell count of 12, hemoglobin 12.2, platelet count of 188. Chemistry significant for bicarbonate level of 33. ABG shows 7.44/49/143/32/99% on BiPAP 50% FiO2. Chest x-ray shows interval increase in interstitial thickening suggestive of pulmonary edema. With left basilar opacity which could represent atelectasis versus pneumonia. Also there is a moderate left and trace right pleural effusions. In the ER she was given Solu-Medrol 60 mg IV 1 dose, albuterol/ipratropium nebulizer, Xopenex nebulizer 1 dose, Ativan 0.5 mg 1 dose, magnesium sulfate 1 g 1 dose, Levaquin 750 mg 1 dose , ceftriaxone 1 g 1 dose and vancomycin 1 g 1 dose. She was also given 40 mg of IV Lasix. She was admitted for COPD exacerbation. At the time of my evaluation, patient very lethargic after receiving Ativan in the ER, most of history obtained from EMR. Previous radiology reviewed from last admission. Video swallow: No aspiration identified Pulmonary function studies performed 10/28/2015 Spirometry: FEV1 44% severe obstructive ventilatory disease, no clinically significant reversibility Lung volumes: Signs of hyperinflation with a residual volume of 144% DLCO: 28% with DLCO/VA ratio: 71% Echo cardiogram 10/24/2016 LV: EF= 55-60%, RV: mild dilation, TAPSE <1.6cm RA: mildly dilated MV: Mild regurgitation RVSP: 40-50mmHg Review of Systems Constitutional: No fever, No weight loss, No weakness Respiratory: + shortness of breath, + dyspnea on exertion, No cough, No wheezing Cardiac: No chest pain, No orthopnea, No PND, No edema, No palpitations Abdomen: No pain, No nausea, No vomiting, No diarrhea, No GI bleeding Female : No problem reported Neurologic: No paralysis, No weakness, No numbness/tingling, No balance problems Heme: No abnormal bleeding/bruising, No clotting problems Endo: No fatigue Skin: No problem reported All Other Systems: Reviewed and Negative Constitutional: reports: as stated in HPI Eyes: reports: as stated in HPI ENT: reports: as stated in HPI Cardiovascular: reports: as stated in HPI Respiratory: reports: as stated in HPI Gastrointestinal: reports: as stated in HPI Genitourinary - Female: reports: as stated in HPI Musculoskeletal: reports: as stated in HPI Integumentary: reports: as stated in HPI Neurologic: reports: as stated in HPI Psychiatric: reports: as stated in HPI Endocrine: as stated in HPI Hematologic / Lymphatic: as stated in HPI Allergic / Immunologic: as stated in HPI All Other Symptoms All Other Systems: Reviewed and Negative Past Medical History Past Medical History: Past Medical History: 1. CVA in the past. 2. Fracture of the right humerus. 3. Concussion. 4. Skin cancer. 5. History of Eustachian tube dysfunction. Past Surgical History: 1. Cataract surgery. 2. Cystoscopy. Past Surgical History: TAVR Family History Heart disease Hypertension Heart disease Hypertension Positive for coronary artery disease, cancer and stroke. Social History She is a former smoker. 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 Hx Tobacco Use In Past Year?: No Smoking Status: Former Smoker Marital status: Housing status: lives alone Occupational Status: retired Immunizations History of Influenza Vaccine: No History of Tetanus Vaccine?: utd History of Hepatitis B Vaccine: No Allergies Coded Allergies: Clonidine (Verified Allergy, Mild, SHORTNESS OF BREATH, 04/14/17) Iodinated Diagnostic Agents (Verified Allergy, Unknown, "IT JUST AFFECTS ME AND I CAN'T EXPLAIN IT", 04/14/17) Latex1 -Allergic Contact Dermititis (Verified Allergy, Unknown, RASH, ) Penicillins (Verified Allergy, Unknown, UNKNOWN, 04/14/17) Sulfa Antibiotics (Verified Allergy, Unknown, "SWELLING IN MOUTH AND DRIED OUT", 04/14/17) Current Medications Reported Home Medications Medications Dose Route/Sig Max Daily Dose Days Date Category Dose Instructions Prednisone 10 Mg Tab 10 Mg PO DAILY 03/22/17 Rx Levalbuterol HCl (Levalbuterol) 0.63 Mg/3 Ml Nebu 0.63 Mg INH Q6R 30 03/22/17 Rx Digoxin 0.125 Mg Tab 0.125 Mg PO DAILY@16 30 03/22/17 Rx Lopressor (Metoprolol Tartrate) 25 Mg Tab 12.5 Mg PO BID 30 03/22/17 Rx Multi Complete (Multiple Vitamins W/ Minerals) 1 Cap Cap 1 Cap PO DAILY 03/16/17 Reported Lasix (Furosemide) 40 Mg Tab 40 Mg PO UD 03/16/17 Reported Klor-Con M20 (Potassium Chloride) 20 Meq Tabcr 20 Meq PO BID 03/16/17 Reported Travatan Z (Travoprost) 0.004 % Bassam 1 Drops OP HS 03/16/17 Reported Eliquis (Apixaban) 2.5 Mg Tab 2.5 Mg PO BID 03/16/17 Reported Carafate (Sucralfate) 1 Gm Tab 1 Gm PO TID 03/16/17 Reported Breo Ellipta (Fluticasone Furoate-Vilanterol) 1 Inh Inh 1 Inha PO DAILY 03/16/17 Reported Xanax (Alprazolam) 0.25 Mg Tab 0.5 Mg PO Q12 PRN 03/16/17 Reported Vitamin D 15747 Unit (Ergocalciferol) 50,000 Unit Cap 50,000 Inter.unit PO WK 10/23/16 Reported wednesdays Latanoprost 37 Drops/2.5 Ml Soln 1 Drop OPB HS 10/23/16 Reported Ferrous Sulfate 325 Mg Tab 325 Mg PO Q2D 10/23/16 Reported Docusate Sodium 100 Mg Cap 100 Mg PO TID PRN 10/23/16 Reported Aspirin 81 Mg Tab 81 Mg PO Q24H 10/23/16 Reported Diltiazem HCl ER (Diltiazem HCl) 360 Mg Tabcr 360 Mg PO DAILY 10/23/16 Reported Levothyroxine Sodium 75 Mcg Tab 75 Mcg PO QAM 09/13/16 Reported Oxygen Gas 3-4 Liters NA HS 01/03/16 Reported Physical Physical Exam Vital Signs: Date Time Temp Pulse Resp B/P (MAP) Pulse Ox O2 Delivery O2 Flow Rate FiO2 04/14/17 13:00 36.7 91 22 130/81 (97) 96 BiPAP 5.0 04/14/17 13:00 97 99 50 04/14/17 12:15 92 18 143/67 100 BiPAP 50 04/14/17 11:12 94 20 142/71 100 BiPAP 04/14/17 10:40 100 BiPAP 6.0 50 04/14/17 10:04 89 28 167/70 100 BiPAP 04/14/17 09:14 90 31 100 BiPAP/CPAP 50 04/14/17 09:12 90 100 50 04/14/17 09:05 37.5 94 25 178/62 94 Nasal Cannula 6.0 04/14/17 09:02 94 Nasal Cannula 6.0 04/14/17 09:00 106 04/14/17 08:53 94 Nasal Cannula 6.0 General Appearance: WD/WN, NO APPARENT DISTRESS Head: NORMOCEPHALIC, ATRAUMATIC Eyes: PERRLA, NO DISCHARGE, EOMI, SCLERAE NORMAL ENT: NORMAL NASAL EXAM, NORMAL MOUTH EXAM, NORMAL THROAT EXAM, other (hard of hearing. ) Neck: NORMAL RANGE OF MOTION, NO TENDERNESS, TRACHEA MIDLINE Respiratory: NO RESPIRATORY DISTRESS, NO TENDERNESS, other (decreased breath sounds bilaterally) Cardiovasular: NORMAL S1S2, irregular rate, irregular rhythm Abdomen: NON TENDER, NORMAL BOWEL SOUNDS, NO REBOUND Back: NORMAL INSPECTION Upper Extremities: NO EDEMA, NO DEFORMITY, NORMAL ROM Lower Extremities: NO EDEMA, NO DEFORMITY, NORMAL ROM, other (no cyanosis, no clubbing) Neuro: ALERT, ORIENTED x 3, NORMAL MOTOR EXAM Psychiatric: NORMAL AFFECT, NO SUICIDAL IDEATION, CONTRACTS FOR SAFETY Diagnostics Labs Results Past 24 Hours Test 04/14/17 09:39 04/14/17 09:53 04/14/17 10:35 04/14/17 13:12 Range/Units White Blood Count 12.07 4.8-10.8 K/uL Red Blood Count 3.88 4.2-5.4 M/uL Hemoglobin 12.2 12.0-16.0 g/dL Hematocrit 37.6 37-47 % Mean Corpuscular Volume 96.9 80-100 fL Mean Corpuscular Hemoglobin 31.4 25-34 pg Mean Corpuscular Hemoglobin Concent 32.4 32-36 g/dl Platelet Count 188 130-400 K/uL Mean Platelet Volume 9.9 7.4-10.4 fL Neutrophils (%) (Auto) 76.4 % Lymphocytes (%) (Auto) 13.8 % Monocytes (%) (Auto) 8.7 % Eosinophils (%) (Auto) 0.4 % Basophils (%) (Auto) 0.1 % Neutrophils # (Auto) 9.23 1.4-6.5 K/uL Lymphocytes # (Auto) 1.66 1.2-3.4 K/uL Monocytes # (Auto) 1.05 0.11-0.59 K/uL Eosinophils # (Auto) 0.05 0-0.5 K/uL Basophils # (Auto) 0.01 0-0.2 K/uL RDW Standard Deviation 49.6 36.4-46.3 fL RDW Coefficient of Variation 14.0 11.5-14.5 % Immature Granulocyte % (Auto) 0.6 % Immature Granulocyte # (Auto) 0.07 0.00-0.02 K/uL Prothrombin Time 11.4 9.0-12.0 SECONDS Prothromb Time International Ratio 1.1 0.9-1.1 Activated Partial Thromboplast Time 27.9 21.0-31.0 SECONDS Partial Thromboplastin Ratio 1.1 Sodium Level 139 136 136-145 mmol/L Potassium Level 3.1 3.0 3.5-5.1 mmol/L Chloride Level 100 97 98-107 mmol/L Carbon Dioxide Level 34 33 21-32 mmol/L Anion Gap 5.0 6.0 3-11 mmol/L Blood Urea Nitrogen 15 13 7-18 mg/dl Creatinine 0.77 0.69 0.60-1.20 mg/dl Est Creatinine Clear Calc Drug Dose 39.5 44.1 ml/min Estimated GFR () 81.0 91.4 Estimated GFR (Non- 69.9 78.8 BUN/Creatinine Ratio 19.5 18.7 10-20 Random Glucose 152 200 70-99 mg/dl Calcium Level 8.5 8.0 8.5-10.1 mg/dl Total Bilirubin 0.8 0.2-1 mg/dl Aspartate Amino Transf (AST/SGOT) 17 15-37 U/L Alanine Aminotransferase (ALT/SGPT) 25 12-78 U/L Alkaline Phosphatase 65 45-117 U/L Total Creatine Kinase 30 26-192 U/L Creatine Kinase MB 0.8 0.5-3.6 ng/ml Creatine Kinase MB Ratio 2.7 0-3.0 Troponin I 0.027 0-0.045 ng/ml Total Protein 6.4 6.4-8.2 gm/dl Albumin 3.3 3.4-5.0 gm/dl Globulin 3.1 2.5-4.0 gm/dl Albumin/Globulin Ratio 1.1 0.9-2 Digoxin Level 1.0 0.8-2.0 ng/ml Bedside Lactic Acid Venous 1.12 0.90-1.70 mmol/L Urine Color YELLOW Urine Appearance CLEAR CLEAR Urine pH 7.5 4.5-7.5 Urine Specific [place] 1.014 1.000-1.030 Urine Protein NEG NEG Urine Glucose (UA) NEG NEG Urine Ketones NEG NEG Urine Occult Blood NEG NEG Urine Nitrite NEG NEG Urine Bilirubin NEG NEG Urine Urobilinogen NEG NEG Urine Leukocyte Esterase NEG NEG Urine WBC (Auto) 1-5 0-5 /hpf Urine RBC (Auto) 0-4 0-4 /hpf Urine Hyaline Casts (Auto) 0 0-5 /lpf Urine Epithelial Cells (Auto) 5-10 0-5 /lpf Urine Bacteria (Auto) NEG NEG Arterial Blood pH 7.44 7.35-7.45 Arterial Blood Partial Pressure CO2 49 35-46 mmHg Arterial Blood Partial Pressure O2 143 80-95 mm/Hg Arterial Blood HCO3 32 19-24 mmol/L Arterial Blood Oxygen Saturation 99.0 90-95 % Arterial Blood Base Excess 6.8 -9-1.8 mEq/L Arterial Blood Gas Delivery 50% Onesimo Test POS POS Microbiology Results 04/14/17 Blood Culture, Received Pending 04/14/17 Blood Culture, Received Pending Diagnostic Radiology CHEST ONE VIEW PORTABLE 04/14/2017 CLINICAL HISTORY: Sepsis. COMPARISON STUDY: Chest CT March 19, 2017 and chest radiograph March 21, 2017. FINDINGS: A prosthetic aortic valve is noted. Mild cardiomegaly is unchanged. There is no pneumothorax. A trace right pleural effusion is noted with a moderate left pleural effusion. Interstitial thickening and bilateral opacities have increased since exam of March 21, 2017. IMPRESSION: 1. Interval increase in interstitial thickening consistent with pulmonary edema. 2. Left basilar opacity which could reflect atelectasis or pneumonia. 3. Moderate left and trace right pleural effusions. (CHEST) THORAX WITHOUT 04/19/2017 CLINICAL HISTORY: Severe hypoxia. Pleural effusions. COMPARISON STUDY: Chest x-ray dated 03/16/2017, chest CT dated 02/05/2007 CT DOSE: 408.92 mGy.cm TECHNIQUE: CT of the thorax was performed from the thoracic inlet to the lung bases. Images are reviewed in the axial, sagittal, and coronal planes. IV contrast was not administered for this examination. A dose lowering technique was utilized adhering to the principles of ALARA. FINDINGS: Thyroid: Imaged portions of the thyroid gland are normal in appearance. Thoracic aorta: The thoracic aorta is normal in course and caliber, noting standard 3 vessel arch anatomy. Heart: There are postsurgical changes involving the aortic root. The heart is mildly enlarged. Lungs and pleural spaces: There is a [id number] left pleural effusion and small right pleural effusion. There is respiratory motion artifact. There is no focal pulmonary consolidation. There is pulmonary emphysema. There is an irregular marginated a 12 mm right apical pulmonary nodule. This nodule should be presumed neoplastic unless proven otherwise. A PET CT scan might be considered in follow-up to evaluate metabolic activity. There is suspected mild septal edema. Mediastinum: There is a mildly enlarged precarinal lymph node measuring 11 mm. Lina: There is no evidence of pathologic hilar adenopathy given the limitations of a noncontrast study Axilla: There is no pathologic axillary lymphadenopathy Upper abdomen: Partially visualized upper abdominal viscera is within normal limits. Skeletal structures: No destructive lesions are visualized. A sternal step-off visualized on reconstructed sagittal images, likely secondary to motion artifact. IMPRESSION: 1. 12 mm irregular marginated right apical pulmonary nodule. This nodule should be presumed neoplastic until proven otherwise 2. Minimally enlarged 11 mm precarinal lymph node 3. Bilateral pleural effusions left greater than right 4. Pulmonary emphysema 5. Mild septal edema Impression Assessment and Plan 1. Respiratory failure -- acute on chronic with hypoxia. 2. Chronic obstructive pulmonary disease exacerbation. 3. Pleural effusions -- small -- left greater than right. 4. Right upper lobe nodule 1.2 cm. 5. Pulmonary hypertension. 6. Atrial fibrillation. 7. Possible LLL pneumonia Ms. Lane has acute and chronic hypoxic respiratory failure. Suspect likely a combination to severe COPD, diastolic dysfunction and atrial fibrillation and pulmonary hypertension. Chest x-ray does show some increased cephalization of vessels to suggest pulmonary edema. There are also bilateral pleural effusions the left being greater than right. This appears to be chronic in nature, likely secondary to underlying diastolic dysfunction. She has a right upper lobe spiculated 1.2 cm nodule seen on CT from last admission. Plan is to follow-up in [address] Rucker. Continue his supplemental oxygen to maintain SaO2 between 80-92%. Use BiPAP when necessary. Continue with empiric antibiotics to cover for hospital-acquired pneumonia. Continue with aggressive diuresis as her kidney function tolerates. Continue continue with systemic steroids. Continue with Breo ellipta and Xopenex/ipratropium nebulizer every 6 hours. Please do not give her albuterol as this precipitates her atrial fibrillation. Continue with a Eliquis for DVT prophylaxis. I appreciate the consult.
[2017-04-14] MEDS: LEVALBUTEROL 0.63MG/3 ML NEB INH SCH ×3 (15:23→23:09)
--- NOTE | 2017-04-14 15:26 | Pharmacy Progress Note ---
Pharmacy Antibiotic Consult Date of Service: Apr 14, 2017. Pharmacy Dosing Scope Pharmacy is consulted to initiate vancomycin IV dosing therapy, order appropriate labs and adjust drug dose/frequency. Subjective The patient is a 87 year old female admitted on Apr 14, 2017 at 11:44. Objective Height (Feet): 5 Height (Inches): 1.00 Weight (Kilograms): 55.000 Lab Results (24hrs): Test 04/14/17 09:39 04/14/17 09:53 04/14/17 10:35 04/14/17 13:12 White Blood Count 12.07 K/uL (4.8-10.8) Red Blood Count 3.88 M/uL (4.2-5.4) Hemoglobin 12.2 g/dL (12.0-16.0) Hematocrit 37.6 % (37-47) Mean Corpuscular Volume 96.9 fL (80-100) Mean Corpuscular Hemoglobin 31.4 pg (25-34) Mean Corpuscular Hemoglobin Concent 32.4 g/dl (32-36) Platelet Count 188 K/uL (130-400) Mean Platelet Volume 9.9 fL (7.4-10.4) Neutrophils (%) (Auto) 76.4 % Lymphocytes (%) (Auto) 13.8 % Monocytes (%) (Auto) 8.7 % Eosinophils (%) (Auto) 0.4 % Basophils (%) (Auto) 0.1 % Neutrophils # (Auto) 9.23 K/uL (1.4-6.5) Lymphocytes # (Auto) 1.66 K/uL (1.2-3.4) Monocytes # (Auto) 1.05 K/uL (0.11-0.59) Eosinophils # (Auto) 0.05 K/uL (0-0.5) Basophils # (Auto) 0.01 K/uL (0-0.2) RDW Standard Deviation 49.6 fL (36.4-46.3) RDW Coefficient of Variation 14.0 % (11.5-14.5) Immature Granulocyte % (Auto) 0.6 % Immature Granulocyte # (Auto) 0.07 K/uL (0.00-0.02) Prothrombin Time 11.4 SECONDS (9.0-12.0) Prothromb Time International Ratio 1.1 (0.9-1.1) Activated Partial Thromboplast Time 27.9 SECONDS (21.0-31.0) Partial Thromboplastin Ratio 1.1 Sodium Level 139 mmol/L (136-145) 136 mmol/L (136-145) Potassium Level 3.1 mmol/L (3.5-5.1) 3.0 mmol/L (3.5-5.1) Chloride Level 100 mmol/L (98-107) 97 mmol/L (98-107) Carbon Dioxide Level 34 mmol/L (21-32) 33 mmol/L (21-32) Anion Gap 5.0 mmol/L (3-11) 6.0 mmol/L (3-11) Blood Urea Nitrogen 15 mg/dl (7-18) 13 mg/dl (7-18) Creatinine 0.77 mg/dl (0.60-1.20) 0.69 mg/dl (0.60-1.20) Est Creatinine Clear Calc Drug Dose 39.5 ml/min 44.1 ml/min Estimated GFR () 81.0 91.4 Estimated GFR (Non- 69.9 78.8 BUN/Creatinine Ratio 19.5 (10-20) 18.7 (10-20) Random Glucose 152 mg/dl (70-99) 200 mg/dl (70-99) Calcium Level 8.5 mg/dl (8.5-10.1) 8.0 mg/dl (8.5-10.1) Total Bilirubin 0.8 mg/dl (0.2-1) Aspartate Amino Transf (AST/SGOT) 17 U/L (15-37) Alanine Aminotransferase (ALT/SGPT) 25 U/L (12-78) Alkaline Phosphatase 65 U/L (45-117) Total Creatine Kinase 30 U/L (26-192) Creatine Kinase MB 0.8 ng/ml (0.5-3.6) Creatine Kinase MB Ratio 2.7 (0-3.0) Troponin I 0.027 ng/ml (0-0.045) Total Protein 6.4 gm/dl (6.4-8.2) Albumin 3.3 gm/dl (3.4-5.0) Globulin 3.1 gm/dl (2.5-4.0) Albumin/Globulin Ratio 1.1 (0.9-2) Digoxin Level 1.0 ng/ml (0.8-2.0) Bedside Lactic Acid Venous 1.12 mmol/L (0.90-1.70) Urine Color YELLOW Urine Appearance CLEAR (CLEAR) Urine pH 7.5 (4.5-7.5) Urine Specific [place] 1.014 (1.000-1.030) Urine Protein NEG (NEG) Urine Glucose (UA) NEG (NEG) Urine Ketones NEG (NEG) Urine Occult Blood NEG (NEG) Urine Nitrite NEG (NEG) Urine Bilirubin NEG (NEG) Urine Urobilinogen NEG (NEG) Urine Leukocyte Esterase NEG (NEG) Urine WBC (Auto) 1-5 /hpf (0-5) Urine RBC (Auto) 0-4 /hpf (0-4) Urine Hyaline Casts (Auto) 0 /lpf (0-5) Urine Epithelial Cells (Auto) 5-10 /lpf (0-5) Urine Bacteria (Auto) NEG (NEG) Arterial Blood pH 7.44 (7.35-7.45) Arterial Blood Partial Pressure CO2 49 mmHg (35-46) Arterial Blood Partial Pressure O2 143 mm/Hg (80-95) Arterial Blood HCO3 32 mmol/L (19-24) Arterial Blood Oxygen Saturation 99.0 % (90-95) Arterial Blood Base Excess 6.8 mEq/L (-9-1.8) Arterial Blood Gas Delivery 50% Onesimo Test POS (POS) Assessment & Plan Assessment * 87 yo F admitted with hypoxia 2nd CHF exacerbation, COPD exacerbation, HAP. * Recent admission February 2017 at [facility] for COPD exacerbation * Received ceftriaxone, levofloxacin, and vancomycin in ED. Continuing on aztreonam, levofloxacin, vancomycin as inpatient. * Blood cultures, nasal MRSA swab pending * SCr of 0.69 mg/dL at/near baseline with eCrCL ~ 44 mL/min * Vancomycin * 18 mg/kg IV x1 (1000 mg) given in ED * Will continue with 18 mg/kg IV dosed at estimated t1/2 * Trough prior to 4th overall dose Plan * Vancomycin 1000 mg IV q16h * Trough 04/16 @ 0530 * Consider discontinuing vancomycin if nasal MRSA swab negative Pharmacy will continue to follow and will adjust dose/frequency as necessary. Thank you
[2017-04-14] MEDS: DIGOXIN 0.125 MG TAB PO SCH ×2 (16:00→16:02)
[2017-04-14] MEDS: SUCRALFATE 1 GM TAB PO SCH ×2 (16:03→16:15)
[2017-04-14] MEDS ORDERED: GLUCAGON FOR INJ 1 MG VIAL SQ PRN (16:15)
[2017-04-14] MEDS ORDERED: GLUCOSE 10 TABS/TUBE PO PRN (16:15)
[2017-04-14] MEDS ORDERED: GLUCOSE 40% GEL 15 GM TUBE PO PRN (16:15)
[2017-04-14] MEDS ORDERED: DEXTROSE 50% 50 ML SYR IV PRN (16:15)
[2017-04-14 16:20] LABS: CALCIUM 8.1 mg/dl (8.5-10.1); CREATININE 0.75 mg/dl (0.60-1.20); POTASSIUM 3.7 mmol/L (3.5-5.1)
[2017-04-14] MEDS ORDERED: FERROUS SULFATE 325 MG TAB PO SCH (16:45)
[2017-04-14] MEDS: INSULIN ASPART 100 UNITS/ML 3 ML PEN SC SCH ×2 (17:18→21:34)
[2017-04-14] MEDS ORDERED: LATANOPROST 0.005% OP SOLN 2.5 ML BTL OPB SCH (21:00)
[2017-04-14] MEDS ORDERED: VANCOMYCIN INJ 1,000 MG in SODIUM CHLORIDE 0.9% 250ML 250 ML IV SCH (21:00)
[2017-04-14] MEDS: POTASSIUM CHLORIDE 20 MEQ TABCR PO SCH (21:00)
[2017-04-14] MEDS: APIXABAN 2.5 MG TAB PO SCH (21:26)
[2017-04-14] MEDS: METOPROLOL TARTRATE 25 MG TAB PO SCH (21:26)
[2017-04-14] MEDS: TRAVOPROST Z 0.004% OPH SOLN 2.5 ML BTL OP SCH (21:27)
[2017-04-14] MEDS: FUROSEMIDE INJ 40 MG in SYRINGE 0 ML IV SCH (21:30)
[2017-04-15] VITALS (12 sets, daily range): BP systolic 101–160; BP diastolic 52–88; PULSE 70–95; TEMP 36.3–37.2; O2SAT 93–100
[2017-04-15] MEDS: VANCOMYCIN INJ 1,000 MG in SODIUM CHLORIDE 0.9% 250ML 250 ML IV SCH ×2 (00:05→15:04)
[2017-04-15] MEDS: LEVALBUTEROL 0.63MG/3 ML NEB INH SCH ×6 (03:36→23:24)
[2017-04-15] MEDS: AZTREONAM IV 2,000 MG in DEXTROSE 5% 100ML 100 ML IV SCH ×3 (05:43→22:03)
[2017-04-15] MEDS: LEVOTHYROXINE 75 MCG TAB PO SCH (05:43)
[2017-04-15] MEDS: INSULIN ASPART 100 UNITS/ML 3 ML PEN SC SCH ×4 (07:00→20:32)
[2017-04-15 07:52] LABS: BASO % 0.1 %; BASO ABS # 0.01 K/uL (0-0.2); COMPLETE YES; HEMATOCRIT 36.7 % (37-47); IG% 0.5 %; LYMPH % 3.7 %; LYMPH ABS # 0.48 K/uL (1.2-3.4); MEAN CELL VOLUME 94.8 fL (80-100); MEAN CORPUSCULAR HEMOGLOBIN 31.5 pg (25-34); MEAN CORPUSCULAR HGB CONC 33.2 g/dl (32-36); MEAN PLATELET VOLUME 9.8 fL (7.4-10.4); MONO % 6.2 %; NEUT % 89.5 %; PLATELET COUNT 186 K/uL (130-400); RED BLOOD COUNT 3.87 M/uL (4.2-5.4); WHITE BLOOD COUNT 12.85 K/uL (4.8-10.8)
[2017-04-15 08:18] LABS: BUN/CREATININE RATIO 26.2 (10-20); CREATININE 0.82 mg/dl (0.60-1.20); POTASSIUM 3.8 mmol/L (3.5-5.1)
[2017-04-15] MEDS: POTASSIUM CHLORIDE 20 MEQ TABCR PO SCH ×2 (08:36→20:36)
[2017-04-15] MEDS: FUROSEMIDE INJ 40 MG in SYRINGE 0 ML IV SCH (08:36)
[2017-04-15] MEDS: SUCRALFATE 1 GM TAB PO SCH ×3 (08:36→15:25)
[2017-04-15] MEDS: DOCUSATE SODIUM 100 MG CAP PO PRN ×2 (08:36→17:35)
[2017-04-15] MEDS: DILTIAZEM HCL 180 MG CAPCR PO SCH (08:37)
[2017-04-15] MEDS: ASPIRIN 81 MG ECTAB PO SCH (08:37)
[2017-04-15] MEDS: APIXABAN 2.5 MG TAB PO SCH ×2 (08:38→20:35)
[2017-04-15] MEDS: CEROVITE ADV FORMULA TAB PO SCH (08:38)
[2017-04-15] MEDS: METOPROLOL TARTRATE 25 MG TAB PO SCH ×2 (08:39→20:35)
[2017-04-15] MEDS ORDERED: SACCHAROMYCES BOUL (FLORASTOR) 250 MG CAP PO ONE (10:45)
--- NOTE | 2017-04-15 10:54 | Hospitalist Progress Note ---
Hospitalist Progress Note Date of Service Apr 15, 2017. Subjective Pt evaluation today including: conversation w/ patient, conversation w/ sustainable design consultant (Pulm) Pt has a lot of complaints about various things. Back to baseline O2 requirement. Thinks she gets worse with her breathing when prednisone tapered down, yet thinks prednisone is terrible and does not want to go up on the dose. All Other Systems: Reviewed and Negative Objective Vital Signs Date Time Temp Pulse Resp B/P (MAP) Pulse Ox O2 Delivery O2 Flow Rate FiO2 04/15/17 08:00 93 Nasal Cannula 4.0 50 04/15/17 08:00 36.3 95 18 129/81 (97) 93 Nasal Cannula 4.0 04/15/17 07:15 70 14 98 Nasal Cannula 4.0 04/15/17 04:44 36.7 75 16 160/88 (112) 100 Nasal Cannula 4.0 04/15/17 04:00 Nasal Cannula 4.0 04/15/17 03:37 83 14 98 Nasal Cannula 4.0 04/14/17 23:59 Nasal Cannula 4.0 04/14/17 23:56 36.6 92 16 128/67 (87) 97 Nasal Cannula 4.0 04/14/17 23:10 86 14 97 Nasal Cannula 4.0 04/14/17 20:00 Nasal Cannula 4.0 04/14/17 19:41 36.3 106 20 118/64 (82) 93 Nasal Cannula 4.0 04/14/17 19:05 89 14 96 Nasal Cannula 4.0 04/14/17 15:43 36.7 97 24 110/66 (81) 91 Nasal Cannula 2.0 04/14/17 15:40 Nasal Cannula 5.0 04/14/17 15:29 86 14 98 Nasal Cannula 5.0 04/14/17 13:00 36.7 91 22 130/81 (97) 96 BiPAP 5.0 04/14/17 13:00 97 99 50 04/14/17 12:15 92 18 143/67 100 BiPAP 50 04/14/17 11:12 94 20 142/71 100 BiPAP 04/14/17 10:40 100 BiPAP 6.0 50 04/14/17 10:04 89 28 167/70 100 BiPAP Physical Exam General Appearance: no apparent distress, + thin (talkative) Eyes: normal inspection, sclerae normal ENT: + pertinent finding ([place]) Neck: trachea midline Respiratory/Chest: lungs clear, normal breath sounds, no respiratory distress, no accessory muscle use, + decreased breath sounds (throughout) Cardiovascular: + irregularly irregular (with mild tachycardia) Abdomen: normal bowel sounds, non tender, soft, no organomegaly Extremities: non-tender, normal inspection, no pedal edema, no calf tenderness Neurologic/Psychiatric: alert Skin: normal color, warm/dry, no rash Laboratory Results Last 24 Hours Test 04/14/17 10:35 04/14/17 13:12 04/14/17 15:46 04/14/17 21:10 Urine Color YELLOW Urine Appearance CLEAR Urine pH 7.5 Urine Specific [place] 1.014 Urine Protein NEG Urine Glucose (UA) NEG Urine Ketones NEG Urine Occult Blood NEG Urine Nitrite NEG Urine Bilirubin NEG Urine Urobilinogen NEG Urine Leukocyte Esterase NEG Urine WBC (Auto) 1-5 /hpf Urine RBC (Auto) 0-4 /hpf Urine Hyaline Casts (Auto) 0 /lpf Urine Epithelial Cells (Auto) 5-10 /lpf Urine Bacteria (Auto) NEG Arterial Blood pH 7.44 Arterial Blood Partial Pressure CO2 49 mmHg Arterial Blood Partial Pressure O2 143 mm/Hg Arterial Blood HCO3 32 mmol/L Arterial Blood Oxygen Saturation 99.0 % Arterial Blood Base Excess 6.8 mEq/L Arterial Blood Gas Delivery 50% Onesimo Test POS Sodium Level 136 mmol/L 134 mmol/L Potassium Level 3.0 mmol/L 3.7 mmol/L Chloride Level 97 mmol/L 96 mmol/L Carbon Dioxide Level 33 mmol/L 32 mmol/L Anion Gap 6.0 mmol/L 6.0 mmol/L Blood Urea Nitrogen 13 mg/dl 14 mg/dl Creatinine 0.69 mg/dl 0.75 mg/dl Est Creatinine Clear Calc Drug Dose 44.1 ml/min 40.6 ml/min Estimated GFR () 91.4 83.7 Estimated GFR (Non- 78.8 72.2 BUN/Creatinine Ratio 18.7 19.0 Random Glucose 200 mg/dl 214 mg/dl Calcium Level 8.0 mg/dl 8.1 mg/dl Bedside Glucose 152 mg/dl Test 04/15/17 07:36 White Blood Count 12.85 K/uL Red Blood Count 3.87 M/uL Hemoglobin 12.2 g/dL Hematocrit 36.7 % Mean Corpuscular Volume 94.8 fL Mean Corpuscular Hemoglobin 31.5 pg Mean Corpuscular Hemoglobin Concent 33.2 g/dl Platelet Count 186 K/uL Mean Platelet Volume 9.8 fL Neutrophils (%) (Auto) 89.5 % Lymphocytes (%) (Auto) 3.7 % Monocytes (%) (Auto) 6.2 % Eosinophils (%) (Auto) 0.0 % Basophils (%) (Auto) 0.1 % Neutrophils # (Auto) 11.50 K/uL Lymphocytes # (Auto) 0.48 K/uL Monocytes # (Auto) 0.80 K/uL Eosinophils # (Auto) 0.00 K/uL Basophils # (Auto) 0.01 K/uL RDW Standard Deviation 47.3 fL RDW Coefficient of Variation 13.7 % Immature Granulocyte % (Auto) 0.5 % Immature Granulocyte # (Auto) 0.06 K/uL Sodium Level 138 mmol/L Potassium Level 3.8 mmol/L Chloride Level 98 mmol/L Carbon Dioxide Level 32 mmol/L Anion Gap 9.0 mmol/L Blood Urea Nitrogen 21 mg/dl Creatinine 0.82 mg/dl Est Creatinine Clear Calc Drug Dose 37.1 ml/min Estimated GFR () 75.1 Estimated GFR (Non- 64.8 BUN/Creatinine Ratio 26.2 Random Glucose 135 mg/dl Calcium Level 9.0 mg/dl Assessment and Plan Ms. Lane is an 87 yo female with a h/o chronic A-fib on Eliquis, chronic diastolic CHF, severe Pulm HTN and possible right sided CHF, HTN, chronic resp failure, COPD, h/o TAVR, anxiety disorder, here with acute on chronic hypoxemic and hypercapnic respiratory failure due to hospital acquired pneumonia as well as acute on chronic diastolic CHF. Acute on chronic hypoxemic and hypercapnic respiratory failure due to HCAP as well as acute on chronic diastolic CHF/COPD. Initially on BiPAP, abg showed CO2 retention but pH 7.44/PaCO2 49/PaO2 143. Was diuresed with IV lasix and weaned from BiPAP now down to baseline O2 requirement 4 LNC. LLL PNA on CXR. - continue telemetry - consult pulmonology appreciated - continue 40 lasix but will switch to po home dose 40mg qAM -continue Xopenex nebs q4h -continue levaquin, vancomycin, aztreonam for HCAP to cver for GNR PNA and MRSA PNA -continue prednisone 10mg daily as per previous taper-no wheezing and pt declines increase in dose -Consult Cardiology as per pt's request Hypokalemia-improved this AM to 3.8 after IV K riders yesterday -continue po KCL 20 meq bid -follow PRP and Mg Chronic Atrial fibrillation, HTN, Nonobstructive CAD, h/o TAVR, Pulm HTN, CHF - continue eliquis for CVA prevention -continue digoxin, diltiazem, metoprolol for rate control - prn iv metoprolol for hr >120 - continue ASA Hypothyroid-TSH 3.53 in - continue home levothyroxine dose Anxiety - continue prn alprazolam DVT proph - Eliquis DNR Dispo- to home in 1-2 days
[2017-04-15] MEDS: LEVOFLOXACIN / D5W 750 MG in PREMIXED IN D5W 150 ML IV SCH (11:57)
--- NOTE | 2017-04-15 12:28 | Pulmonology Progress Note ---
Pulmonary Progress Note Date of Service Apr 15, 2017. Attending Dr. Mejia Subjective Patient seen and examined this morning. She states that she's feeling better from a respiratory standpoint. She denies any shortness of breath or chest pain. She states that she does have some dyspnea on exertion. Now back down to her baseline supplemental oxygen of 2 L nasal cannula. Objective Vital signs reviewed. General Appearance: no apparent distress, + thin (talkative) Eyes: normal inspection, sclerae normal ENT: + pertinent finding, very hard of hearing-uses hearing aid device to communicate Neck: trachea midline Respiratory/Chest: lungs clear, normal breath sounds, no respiratory distress, no accessory muscle use, + decreased breath sounds at bases Cardiovascular: + irregularly irregular (with mild tachycardia) Abdomen: normal bowel sounds, non tender, soft, no organomegaly Extremities: non-tender, normal inspection, no pedal edema, no calf tenderness , no cyanosis, no clubbing Neurologic/Psychiatric: alert Skin: normal color, warm/dry, no rash Assessment & Plan 1. Respiratory failure -- acute on chronic with hypoxia. 2. Chronic obstructive pulmonary disease exacerbation. 3. Pleural effusions -- small -- left greater than right. 4. Right upper lobe nodule 1.2 cm. 5. Pulmonary hypertension. 6. Atrial fibrillation. 7. Possible HCAP Ms. Lane has acute and chronic hypoxic respiratory failure. Suspect likely a combination to severe COPD, diastolic dysfunction and atrial fibrillation, pulmonary hypertension and possible LLL pneumonia.. Chest x-ray does show some increased cephalization of vessels to suggest pulmonary edema. There are also bilateral pleural effusions the left being greater than right. This appears to be chronic in nature, likely secondary to underlying diastolic dysfunction. She has a right upper lobe spiculated 1.2 cm nodule seen on CT from last admission. Plan is to follow-up in [address] Rucker. Today she is feeling better from a respiratory standpoint. She is adamant that we decrease her steroid dose is back to her baseline of 10 mg and change her back to oral Lasix. Continue his supplemental oxygen to maintain SaO2 between 80-92%. Use BiPAP when necessary. Continue with empiric antibiotics to cover for possible hospital-acquired pneumonia. Continue with aggressive diuresis as her kidney function tolerates. Taper steroids back down to home dose. Continue with Breo ellipta and Xopenex/ipratropium nebulizer every 6 hours. Please do not give her albuterol as this precipitates her atrial fibrillation. Continue with a Eliquis for DVT prophylaxis. I will sign off case today. Please contact me if you have any other questions or concerns. Data Medications: Current Inpatient Medications Medications (Trade) Dose Ordered Sig/Yared Route Start Time Stop Time Status Last Admin Dose Admin Levofloxacin 750 mg/Prmx 150 ml @ 100 mls/hr Q24H IV 04/15/17 11:00 04/21/17 10:59 04/15/17 11:57 100 MLS/HR Aztreonam 2000 mg/ Dextrose 110 ml @ 100 mls/hr Q8 IV 04/14/17 14:30 04/21/17 14:29 04/15/17 05:43 100 MLS/HR Alprazolam (Xanax Tab) 0.5 mg Q12 PRN PO 04/14/17 12:15 05/14/17 12:14 Apixaban (Eliquis Tab) 2.5 mg BID PO 04/14/17 21:00 05/14/17 20:59 04/15/17 08:38 2.5 MG Aspirin (Ecotrin Tab) 81 mg DAILY PO 04/14/17 14:00 05/14/17 13:59 04/15/17 08:37 81 MG Digoxin (Lanoxin Tab) 0.125 mg DAILY@1600 PO 04/14/17 16:00 05/14/17 15:59 Docusate Sodium (coLACE CAP) 100 mg TID PRN PO 04/14/17 12:15 05/14/17 12:14 04/15/17 08:36 100 MG Ergocalciferol (Vitamin D Cap) 50,000 interunit We@0900 PO 04/18/17 09:00 05/18/17 08:59 Levalbuterol (Xopenex 0.63 Mg/ 3 Ml Neb) 0.63 mg Q4R INH 04/14/17 16:00 05/14/17 15:59 04/15/17 07:15 0.63 MG Levothyroxine Sodium (Synthroid Tab) 75 mcg DAILYBB PO 04/15/17 06:00 05/15/17 05:59 04/15/17 05:43 75 MCG Metoprolol Tartrate (Lopressor Tab) 12.5 mg BID PO 04/14/17 21:00 05/14/17 20:59 04/15/17 08:39 12.5 MG Potassium Chloride (Klor-Con Tab) 20 meq BID PO 04/14/17 21:00 05/14/17 20:59 04/15/17 08:36 20 MEQ Prednisone (PredniSONE TAB) 10 mg DAILY PO 04/15/17 09:00 05/15/17 08:59 04/15/17 08:37 10 MG Sucralfate (Carafate Tab) 1 gm AC PO 04/14/17 16:15 05/14/17 16:14 04/15/17 11:58 1 GM Travoprost (Travatan Z) 1 drops HS OP 04/14/17 21:00 05/14/17 20:59 04/14/17 21:27 1 DROPS Diltiazem HCl (Cardizem Cd Cap) 360 mg DAILY PO 04/15/17 09:00 05/15/17 08:59 04/15/17 08:37 360 MG Ferrous Sulfate (Feosol Tab) 325 mg Q2D@1645 PO 04/14/17 16:45 05/14/17 16:44 Miscellaneous Information (Order Awaiting Action) 1 ea QS N/A 04/14/17 16:00 05/14/17 15:59 Multivitamins/ Minerals (Multivitamin W/ Minerals Tab) 1 tab QAM PO 04/15/17 09:00 05/15/17 08:59 04/15/17 08:38 1 TAB Metoprolol Tartrate (Lopressor Iv) 5 mg Q4 PRN IV 04/14/17 12:15 05/14/17 12:14 Vancomycin HCl (Consult) 1 ea UD PRN N/A 04/14/17 15:15 05/14/17 15:14 Vancomycin HCl 1000 mg/Sodium Chloride 270 ml @ 125 mls/hr Q16H IV 04/14/17 22:00 04/21/17 21:59 04/15/17 00:05 125 MLS/HR Insulin Aspart (novoLOG ASPART) SLIDING SCALE If C... ACHS SC 04/14/17 16:15 05/14/17 16:14 04/15/17 12:07 3 UNITS Glucose (Glucose 40% Gel) 15-30 GRAMS 15 GRAMS... UD PRN PO 04/14/17 16:15 05/14/17 16:14 Glucose (Glucose Chew Tab) 4-8 Tablets 4 Tabl... UD PRN PO 04/14/17 16:15 05/14/17 16:14 Dextrose (Dextrose 50% 50ML Syringe) 25-50ML OF 50% DW IV FOR... UD PRN IV 04/14/17 16:15 05/14/17 16:14 Glucagon (Glucagon Inj) 1 mg UD PRN SQ 04/14/17 16:15 05/14/17 16:14 Furosemide (Lasix Tab) 40 mg QAM PO 04/16/17 09:00 05/16/17 08:59 Saccharomyces Boulardii (Florastor Cap) 250 mg DAILY PO 04/16/17 09:00 05/16/17 08:59 I & O: 24-Hour Column 04/16/17 07:59 Intake Total 0 ml Balance 0 ml Vital Signs: Date Time Temp Pulse Resp B/P (MAP) Pulse Ox O2 Delivery O2 Flow Rate FiO2 04/15/17 08:00 93 Nasal Cannula 4.0 50 04/15/17 08:00 36.3 95 18 129/81 (97) 93 Nasal Cannula 4.0 04/15/17 07:15 70 14 98 Nasal Cannula 4.0 04/15/17 04:44 36.7 75 16 160/88 (112) 100 Nasal Cannula 4.0 04/15/17 04:00 Nasal Cannula 4.0 04/15/17 03:37 83 14 98 Nasal Cannula 4.0 04/14/17 23:59 Nasal Cannula 4.0 04/14/17 23:56 36.6 92 16 128/67 (87) 97 Nasal Cannula 4.0 04/14/17 23:10 86 14 97 Nasal Cannula 4.0 04/14/17 20:00 Nasal Cannula 4.0 04/14/17 19:41 36.3 106 20 118/64 (82) 93 Nasal Cannula 4.0 04/14/17 19:05 89 14 96 Nasal Cannula 4.0 04/14/17 15:43 36.7 97 24 110/66 (81) 91 Nasal Cannula 2.0 04/14/17 15:40 Nasal Cannula 5.0 04/14/17 15:29 86 14 98 Nasal Cannula 5.0 04/14/17 13:00 36.7 91 22 130/81 (97) 96 BiPAP 5.0 04/14/17 13:00 97 99 50 Laboratory Results: Last 24 Hours Test 04/14/17 13:12 04/14/17 15:46 04/14/17 21:10 04/15/17 07:36 Sodium Level 136 mmol/L 134 mmol/L 138 mmol/L Potassium Level 3.0 mmol/L 3.7 mmol/L 3.8 mmol/L Chloride Level 97 mmol/L 96 mmol/L 98 mmol/L Carbon Dioxide Level 33 mmol/L 32 mmol/L 32 mmol/L Anion Gap 6.0 mmol/L 6.0 mmol/L 9.0 mmol/L Blood Urea Nitrogen 13 mg/dl 14 mg/dl 21 mg/dl Creatinine 0.69 mg/dl 0.75 mg/dl 0.82 mg/dl Est Creatinine Clear Calc Drug Dose 44.1 ml/min 40.6 ml/min 37.1 ml/min Estimated GFR () 91.4 83.7 75.1 Estimated GFR (Non- 78.8 72.2 64.8 BUN/Creatinine Ratio 18.7 19.0 26.2 Random Glucose 200 mg/dl 214 mg/dl 135 mg/dl Calcium Level 8.0 mg/dl 8.1 mg/dl 9.0 mg/dl Bedside Glucose 152 mg/dl White Blood Count 12.85 K/uL Red Blood Count 3.87 M/uL Hemoglobin 12.2 g/dL Hematocrit 36.7 % Mean Corpuscular Volume 94.8 fL Mean Corpuscular Hemoglobin 31.5 pg Mean Corpuscular Hemoglobin Concent 33.2 g/dl Platelet Count 186 K/uL Mean Platelet Volume 9.8 fL Neutrophils (%) (Auto) 89.5 % Lymphocytes (%) (Auto) 3.7 % Monocytes (%) (Auto) 6.2 % Eosinophils (%) (Auto) 0.0 % Basophils (%) (Auto) 0.1 % Neutrophils # (Auto) 11.50 K/uL Lymphocytes # (Auto) 0.48 K/uL Monocytes # (Auto) 0.80 K/uL Eosinophils # (Auto) 0.00 K/uL Basophils # (Auto) 0.01 K/uL RDW Standard Deviation 47.3 fL RDW Coefficient of Variation 13.7 % Immature Granulocyte % (Auto) 0.5 % Immature Granulocyte # (Auto) 0.06 K/uL Test 04/15/17 12:02 Bedside Glucose 221 mg/dl
--- NOTE | 2017-04-15 12:43 | Cardiology Consultation ---
Cardiology Consultation Date of Consultation: Apr 15, 2017. Requesting Physician: Dr. Prasad Reason for Consultation: Atrial fibrillation, CHF History of Present Illness This is an 86-year-old woman who has a history of permanent atrial fibrillation , long-standing severe lung disease, critical aortic stenosis for which she had a TAVR on 10/18/2016 at [facility]. She has a history of left ventricular hypertrophy and diastolic dysfunction, she has had admissions for decompensated diastolic congestive heart failure. She was last admitted in February 2017 with shortness of breath primarily from pulmonary causes. Echocardiography recently showed normal left ventricular size and function with ejection fraction of 55-60% and a properly functioning bioprosthetic aortic valve. She did have elevated right ventricular systolic pressures of 40-50 mmHg. Although congestive heart failure was entertained it seems on review of that admission that it was primarily lung disease causing her shortness of breath. Her heart rate during atrial fibrillation was somewhat fast and I started digoxin. She is also on metoprolol at low doses and diltiazem at high doses. She now presents on 04/14/2017 with shortness of breath and findings of a pneumonia and mild congestive heart failure. Her heart rate was slightly elevated on admission, but probably physiologic. She is not having any complaints of palpitations. Past Medical/Surgical History (1) Asthma (2) Cataract (3) melanoma (4) Critical stenosis of aortic valve (5) Benign hypertension (6) Atrial fibrillation with RVR Family History Heart disease Hypertension Social History Smoking Status: Former Smoker History of Alcohol Use: No Review of Systems Constitutional: No fever, No weight loss, No weakness Respiratory: + dyspnea on exertion Cardiac: No chest pain, No orthopnea, No PND, No edema, No palpitations Abdomen: No pain, No nausea, No vomiting, No diarrhea, No GI bleeding Female : No problem reported Neurologic: No paralysis, No weakness, No numbness/tingling, No balance problems Heme: No abnormal bleeding/bruising, No clotting problems Endo: No fatigue Skin: No problem reported All Other Systems: Reviewed and Negative Allergies Coded Allergies: Clonidine (Verified Allergy, Mild, SHORTNESS OF BREATH, 04/14/17) Iodinated Diagnostic Agents (Verified Allergy, Unknown, "IT JUST AFFECTS ME AND I CAN'T EXPLAIN IT", 04/14/17) Latex1 -Allergic Contact Dermititis (Verified Allergy, Unknown, RASH, ) Penicillins (Verified Allergy, Unknown, UNKNOWN, 04/14/17) Sulfa Antibiotics (Verified Allergy, Unknown, "SWELLING IN MOUTH AND DRIED OUT", 04/14/17) Medications Current Inpatient Medications Medications (Trade) Dose Ordered Sig/Yared Route Start Time Stop Time Status Last Admin Dose Admin Levofloxacin 750 mg/Prmx 150 ml @ 100 mls/hr Q24H IV 04/15/17 11:00 04/21/17 10:59 04/15/17 11:57 100 MLS/HR Aztreonam 2000 mg/ Dextrose 110 ml @ 100 mls/hr Q8 IV 04/14/17 14:30 04/21/17 14:29 04/15/17 05:43 100 MLS/HR Alprazolam (Xanax Tab) 0.5 mg Q12 PRN PO 04/14/17 12:15 05/14/17 12:14 Apixaban (Eliquis Tab) 2.5 mg BID PO 04/14/17 21:00 05/14/17 20:59 04/15/17 08:38 2.5 MG Aspirin (Ecotrin Tab) 81 mg DAILY PO 04/14/17 14:00 05/14/17 13:59 04/15/17 08:37 81 MG Digoxin (Lanoxin Tab) 0.125 mg DAILY@1600 PO 04/14/17 16:00 05/14/17 15:59 Docusate Sodium (coLACE CAP) 100 mg TID PRN PO 04/14/17 12:15 05/14/17 12:14 04/15/17 08:36 100 MG Ergocalciferol (Vitamin D Cap) 50,000 interunit We@0900 PO 04/18/17 09:00 05/18/17 08:59 Levalbuterol (Xopenex 0.63 Mg/ 3 Ml Neb) 0.63 mg Q4R INH 04/14/17 16:00 05/14/17 15:59 04/15/17 07:15 0.63 MG Levothyroxine Sodium (Synthroid Tab) 75 mcg DAILYBB PO 04/15/17 06:00 05/15/17 05:59 04/15/17 05:43 75 MCG Metoprolol Tartrate (Lopressor Tab) 12.5 mg BID PO 04/14/17 21:00 05/14/17 20:59 04/15/17 08:39 12.5 MG Potassium Chloride (Klor-Con Tab) 20 meq BID PO 04/14/17 21:00 05/14/17 20:59 04/15/17 08:36 20 MEQ Prednisone (PredniSONE TAB) 10 mg DAILY PO 04/15/17 09:00 05/15/17 08:59 04/15/17 08:37 10 MG Sucralfate (Carafate Tab) 1 gm AC PO 04/14/17 16:15 05/14/17 16:14 04/15/17 11:58 1 GM Travoprost (Travatan Z) 1 drops HS OP 04/14/17 21:00 05/14/17 20:59 04/14/17 21:27 1 DROPS Diltiazem HCl (Cardizem Cd Cap) 360 mg DAILY PO 04/15/17 09:00 05/15/17 08:59 04/15/17 08:37 360 MG Ferrous Sulfate (Feosol Tab) 325 mg Q2D@1645 PO 04/14/17 16:45 05/14/17 16:44 Miscellaneous Information (Order Awaiting Action) 1 ea QS N/A 04/14/17 16:00 05/14/17 15:59 Multivitamins/ Minerals (Multivitamin W/ Minerals Tab) 1 tab QAM PO 04/15/17 09:00 05/15/17 08:59 04/15/17 08:38 1 TAB Metoprolol Tartrate (Lopressor Iv) 5 mg Q4 PRN IV 04/14/17 12:15 05/14/17 12:14 Vancomycin HCl (Consult) 1 ea UD PRN N/A 04/14/17 15:15 05/14/17 15:14 Vancomycin HCl 1000 mg/Sodium Chloride 270 ml @ 125 mls/hr Q16H IV 04/14/17 22:00 04/21/17 21:59 04/15/17 00:05 125 MLS/HR Insulin Aspart (novoLOG ASPART) SLIDING SCALE If C... ACHS SC 04/14/17 16:15 05/14/17 16:14 04/15/17 12:07 3 UNITS Glucose (Glucose 40% Gel) 15-30 GRAMS 15 GRAMS... UD PRN PO 04/14/17 16:15 05/14/17 16:14 Glucose (Glucose Chew Tab) 4-8 Tablets 4 Tabl... UD PRN PO 04/14/17 16:15 05/14/17 16:14 Dextrose (Dextrose 50% 50ML Syringe) 25-50ML OF 50% DW IV FOR... UD PRN IV 04/14/17 16:15 05/14/17 16:14 Glucagon (Glucagon Inj) 1 mg UD PRN SQ 04/14/17 16:15 05/14/17 16:14 Furosemide (Lasix Tab) 40 mg QAM PO 04/16/17 09:00 05/16/17 08:59 Saccharomyces Boulardii (Florastor Cap) 250 mg DAILY PO 04/16/17 09:00 05/16/17 08:59 Physical Exam Vital Signs Past 12 Hours Date Time Temp Pulse Resp B/P (MAP) Pulse Ox O2 Delivery O2 Flow Rate FiO2 04/15/17 08:00 93 Nasal Cannula 4.0 50 04/15/17 08:00 36.3 95 18 129/81 (97) 93 Nasal Cannula 4.0 04/15/17 07:15 70 14 98 Nasal Cannula 4.0 04/15/17 04:44 36.7 75 16 160/88 (112) 100 Nasal Cannula 4.0 04/15/17 04:00 Nasal Cannula 4.0 04/15/17 03:37 83 14 98 Nasal Cannula 4.0 Constitutional: General Apperance: too thin Level of Distress: mild distress Psychiatric: Mental Status: active & alert Head: normocephalic Eyes: EOM: EOMI ENMT: normal ENT inspection, pertinent finding (very hard of hearing, uses an appliance) Neck: supple, no masses Lungs: Respiratory effort: no dyspnea, good air movement Auscultation: no wheezing, no rales/crackles Cardiovascular: Heart Auscultation: no rubs, no gallops, II/ RAYSHAWN, irregular rate rhythm Peripheral Pulses: Bruits: none appreciated Abdomen: Bowel Sounds: normal Inspection & Palpation: soft, no tenderness, guarding & rebound, no masses Musculoskeletal: normal strength (5/5 throughout) Extremities: no edema Neurologic: Cranial Nerves: grossly intact Sensation: grossly intact Data Laboratory Results: Last 24 Hours Test 04/14/17 13:12 04/14/17 15:46 04/14/17 21:10 04/15/17 07:36 Sodium Level 136 mmol/L 134 mmol/L 138 mmol/L Potassium Level 3.0 mmol/L 3.7 mmol/L 3.8 mmol/L Chloride Level 97 mmol/L 96 mmol/L 98 mmol/L Carbon Dioxide Level 33 mmol/L 32 mmol/L 32 mmol/L Anion Gap 6.0 mmol/L 6.0 mmol/L 9.0 mmol/L Blood Urea Nitrogen 13 mg/dl 14 mg/dl 21 mg/dl Creatinine 0.69 mg/dl 0.75 mg/dl 0.82 mg/dl Est Creatinine Clear Calc Drug Dose 44.1 ml/min 40.6 ml/min 37.1 ml/min Estimated GFR () 91.4 83.7 75.1 Estimated GFR (Non- 78.8 72.2 64.8 BUN/Creatinine Ratio 18.7 19.0 26.2 Random Glucose 200 mg/dl 214 mg/dl 135 mg/dl Calcium Level 8.0 mg/dl 8.1 mg/dl 9.0 mg/dl Bedside Glucose 152 mg/dl White Blood Count 12.85 K/uL Red Blood Count 3.87 M/uL Hemoglobin 12.2 g/dL Hematocrit 36.7 % Mean Corpuscular Volume 94.8 fL Mean Corpuscular Hemoglobin 31.5 pg Mean Corpuscular Hemoglobin Concent 33.2 g/dl Platelet Count 186 K/uL Mean Platelet Volume 9.8 fL Neutrophils (%) (Auto) 89.5 % Lymphocytes (%) (Auto) 3.7 % Monocytes (%) (Auto) 6.2 % Eosinophils (%) (Auto) 0.0 % Basophils (%) (Auto) 0.1 % Neutrophils # (Auto) 11.50 K/uL Lymphocytes # (Auto) 0.48 K/uL Monocytes # (Auto) 0.80 K/uL Eosinophils # (Auto) 0.00 K/uL Basophils # (Auto) 0.01 K/uL RDW Standard Deviation 47.3 fL RDW Coefficient of Variation 13.7 % Immature Granulocyte % (Auto) 0.5 % Immature Granulocyte # (Auto) 0.06 K/uL Test 04/15/17 12:02 Bedside Glucose 221 mg/dl EKG: An electrocardiogram 04/14/2017 at 8:55 AM shows atrial fibrillation with a heart rate of 95 bpm and nonspecific IVCD. Telemetry reviewed: Atrial fibrillation with a controlled heart rate Assessment & Plan #1. Permanent atrial fibrillation: She remains in atrial fibrillation with what seems to be an appropriate heart rate. I would not alter her medications currently. #2. Congestive heart failure: She may have slight fluid overload, although I would be careful with diuresis. She is not in florid heart failure. #3. TAVR: On exam her valve is working well, on relatively recent echocardiography she had good function. I don't think we need to pursue this further. Thank you for allowing me to participate in her care.
[2017-04-15] MEDS: DIGOXIN 0.125 MG TAB PO SCH (15:24)
[2017-04-15] MEDS: TRAVOPROST Z 0.004% OPH SOLN 2.5 ML BTL OP SCH (20:36)
[2017-04-16] VITALS (10 sets, daily range): BP systolic 119–167; BP diastolic 56–80; PULSE 66–82; TEMP 36.5–36.8; O2SAT 95–99
[2017-04-16] MEDS: LEVALBUTEROL 0.63MG/3 ML NEB INH SCH ×4 (03:08→15:13)
[2017-04-16] MEDS ORDERED: VANCOMYCIN TROUGH ONE (05:30)
[2017-04-16] MEDS: AZTREONAM IV 2,000 MG in DEXTROSE 5% 100ML 100 ML IV SCH ×2 (06:04→14:31)
[2017-04-16] MEDS: VANCOMYCIN INJ 1,000 MG in SODIUM CHLORIDE 0.9% 250ML 250 ML IV SCH (06:04)
[2017-04-16] MEDS: LEVOTHYROXINE 75 MCG TAB PO SCH (06:04)
[2017-04-16] MEDS: SUCRALFATE 1 GM TAB PO SCH ×2 (06:05→10:40)
[2017-04-16 06:29] LABS: BASO % 0.2 %; BASO ABS # 0.02 K/uL (0-0.2); COMPLETE YES; EOS % 0.8 %; HEMATOCRIT 35.2 % (37-47); IG% 0.9 %; LYMPH % 6.9 %; LYMPH ABS # 0.77 K/uL (1.2-3.4); MEAN CELL VOLUME 93.9 fL (80-100); MEAN CORPUSCULAR HEMOGLOBIN 31.7 pg (25-34); MEAN CORPUSCULAR HGB CONC 33.8 g/dl (32-36); MEAN PLATELET VOLUME 10.2 fL (7.4-10.4); MONO % 10.5 %; NEUT % 80.7 %; PLATELET COUNT 210 K/uL (130-400); RED BLOOD COUNT 3.75 M/uL (4.2-5.4); WHITE BLOOD COUNT 11.08 K/uL (4.8-10.8)
[2017-04-16 07:01] LABS: BLOOD UREA NITROGEN 30 mg/dl (7-18); BUN/CREATININE RATIO 33.5 (10-20); CALCIUM 8.8 mg/dl (8.5-10.1); CARBON DIOXIDE 29 mmol/L (21-32); CHLORIDE 102 mmol/L (98-107); CREATININE 0.89 mg/dl (0.60-1.20); GLUCOSE 91 mg/dl (70-99); SODIUM 138 mmol/L (136-145)
[2017-04-16] MEDS: INSULIN ASPART 100 UNITS/ML 3 ML PEN SC SCH ×2 (07:45→11:00)
[2017-04-16] MEDS: ASPIRIN 81 MG ECTAB PO SCH (07:48)
[2017-04-16] MEDS: DILTIAZEM HCL 180 MG CAPCR PO SCH (07:48)
[2017-04-16] MEDS: APIXABAN 2.5 MG TAB PO SCH (07:48)
[2017-04-16] MEDS: METOPROLOL TARTRATE 25 MG TAB PO SCH (07:48)
[2017-04-16] MEDS: POTASSIUM CHLORIDE 20 MEQ TABCR PO SCH (07:49)
[2017-04-16] MEDS: CEROVITE ADV FORMULA TAB PO SCH (07:49)
[2017-04-16] MEDS: DOCUSATE SODIUM 100 MG CAP PO PRN (07:50)
--- NOTE | 2017-04-16 08:46 | Pharmacy Progress Note ---
Pharmacy Abx Dose Short Note Date of Service Apr 16, 2017. Assessment & Plan Assessment * 87 year old female receiving VANCOMYCIN 1000mg IV Q 16 hours (dosing per pharmacy consult) for treatment of HAP vs COPD exac. She is also receiving Aztreonam and Levofloxacin IV - dosing per provider. * Day # 3 of antimicrobial therapy * Recently hospitalized Feb 2017 for COPD exacerbation * 04/14 CXR report: suggestive of pulm edema, L basilar opacity possibly secondary to atelectasis vs pneumonia, mod L and trace R pleural effusions * Blood cultures remain negative to date; MRSA nasal swab is negative, lessening the likelihood of MRSA pneumonia - may consider d/c vancomycin as Levofloxacin offers good coverage of DRSP and MSSA * WBC stable, slightly elevated however receiving steroids prior to admission and during this admission. * Afebrile, actually mildly hypothermic yesterday * O2 requirement stable, sat well on 4L NC, VSS * SCr slowly rising, possibly indicating declining renal fxn. U.O. has been good however. Of note, the patient has received IV furosemide. Plan Vancomycin * Trough level of 12.8 mcg/mL is subtherapeutic, however level was drawn prior to achieving steady-state. With an estimated half-life of ~16 hours the current level is only reflective of 75-85% steady-state. Prior doses were hung mostly on time. The level may have been drawn while the drug was infusing...the dose was documented as being hung at 0604 but the level was documented as being drawn at 0608? * Given the possible decline in renal fxn and the level being drawn prior to achieving steady-state and the negative MRSA nasal swab, will continue the current dose and repeat trough level tomorrow when steady-state achieved. * Continue dose of 1000 mg IV every 16 hours * Goal trough level for pulm infxn : 15 to 20 mcg/mL Pharmacy will continue to follow and will adjust dose/frequency as necessary. Thank you.
[2017-04-16] MEDS ORDERED: SACCHAROMYCES BOUL (FLORASTOR) 250 MG CAP PO SCH (09:00)
[2017-04-16] MEDS ORDERED: FUROSEMIDE 40 MG TAB PO SCH (09:00)
[2017-04-16] MEDS ORDERED: LEVO1TAB35 PO ×2 (10:34→15:19)
[2017-04-16] MEDS ORDERED: DXY100 PO (10:34)
[2017-04-16] MEDS: LEVOFLOXACIN / D5W 750 MG in PREMIXED IN D5W 150 ML IV SCH (10:40)
[2017-04-16] MEDS ORDERED: POLYETHYLENE (MIRALAX) 17 GM PACK PO ONE (11:00)
--- NOTE | 2017-04-16 11:25 | CARDIOLOGY PROGRESS NOTE ---
DATE: 04/16/2017 HISTORY OF PRESENT ILLNESS: Mrs. 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 Possibly some component of ? CHF. She was initially admitted, placed on higher doses of supplemental oxygen and also placed on BiPAP. She was started on the appropriate antibiotics. The patient was also initially treated with IV diuretics - which have since been converted to oral Lasix. At the present time, the patient states that her breathing is better than it was at the time of admission, but she is still not back to baseline. She continues to get mildly short of breath with prolonged speaking and with minor activities. She denies any chest pain, heaviness, tightness, pressure, or chest discomfort. She denies any neck, jaw, back, or arm pain. She has not had any adelia orthopnea or PND. Her body weight has not climbed recently nor has she been aware of any fluid retention. She remains in atrial fibrillation -- but has not had any elevated heart rates. She denies any syncope or near syncope. The patient is very anxious to get out of the hospital for a number of reasons, which she expounded on today. MEDICATIONS: 1. Vitamin D 50,000 IUs each week. 2. MiraLax 17 grams daily as needed. 3. Lasix 40 mg p.o. every day. 4. Florastor capsules 250 mg daily. 5. Levofloxacin 750 mg IV q. 24 hours. 6. Prednisone 10 mg daily. 7. Diltiazem CD 360 mg daily. 8. Multivitamin with minerals daily. 9. Levothyroxine 75 mcg daily. 10. Eliquis 2.5 mg b.i.d. 11. Lopressor 12.5 mg b.i.d. 12. KCl 20 mEq b.i.d. 13. Travatan Z 1 drop at both eyes at bedtime. 14. Feosol 325 mg every 2 days. 15. Carafate 1 gram before meals. 16. NovoLog sliding scale insulin. 17. Digoxin 125 mcg daily. 18. Xopenex nebulizer q. 4 hours. 19. Aztreonam 2 grams IV q. 8 hours. 20. Aspirin 81 mg a day. 21. Xanax 0.5 mg p.o. q. 12 hours p.r.n. 22. Colace 100 mg t.i.d. 23. Lopressor 5 mg IV q. 4 hours p.r.n. for elevated heart rate or blood pressure. ALLERGIES: 1. CLONIDINE. 2. PENICILLIN. 3. SULFA DRUGS. 4. IODINATED CONTRAST AGENTS. 5. LATEX CAUSES CONTACT DERMATITIS. PHYSICAL EXAMINATION: VITAL SIGNS: Temperature is 36.5 degrees axillary, pulse is 80 and irregularly irregular, respiratory rate is 18 and slightly labored, blood pressure is 146/72 and SpO2 is 97% on 4 liters of oxygen via nasal cannula. GENERAL: Chronically ill appearing white female in no acute distress. HEENT: Head is atraumatic and normocephalic. EOMs intact. Face is symmetric. No perioral cyanosis. Mucous membranes moist. NECK: Without obvious JVD. Jugular venous pressure is just above the clavicle lying at a 45 degree angle. CHEST AND LUNGS: With diminished breath sounds throughout, occasional crackles in the left lower lung luis. CARDIOVASCULAR: S1 and S2 are irregularly irregular at a rate of approximately 75-85 beats per minute. With a grade 1/6 basal mid systolic murmur, which does not appear to radiate. Accentuated aortic valve closure sound. No diastolic murmurs appreciated. No gallops or rubs. PMI is nondisplaced. No lifts, heaves, or thrills. ABDOMINAL EXAM: Bowel sounds present. No masses, organomegaly or tenderness. EXTREMITIES: Without clubbing, cyanosis or edema. Multiple ecchymoses are noted over bilateral arms and legs. NEUROLOGIC: The patient is awake, alert, and interactive. Speech is clear. Answers questions appropriately. Normal movement in all 4 extremities. Gait pattern not assessed. Telemetry monitoring reveals atrial fibrillation throughout this hospitalization with controlled ventricular response rate. LABORATORY DATA: White blood cell count 11.08, hemoglobin 11.9 g/dL, hematocrit 35.2% and platelet count is 210,000. Sodium is 138 mmol/L, potassium 3.8 mmol/L, BUN 13 mg/dL, creatinine 0.89 mg/dL and random glucose is 91 mg/dL. Total CK on admission was 30 units per liter with a CK-MB of 0.8 ng/mL. Troponin I is 0.027 ng/mL. Serum digoxin level is 1.0 ng/mL (reference range 0.8-2.0 ng/mL). EKG on admission shows atrial fibrillation with a nonspecific intraventricular conduction delay at a rate of 95 beats per minute, left axis deviation. T-wave abnormality in the lateral leads. ASSESSMENT: 1. Probable left lower lobe pneumonia, possibly HCAP. 2. COPD exacerbation. 3. Chronic Atrial Fibrillation, rate controlled and on Eliquis. 4. History of critical s/p TAVR on 10/18/2016. 5. Severe Pulmonary Hypertension. 6. Severe COPD. 7. History of LV diastolic dysfunction. 8. History of diastolic and right-sided congestive heart failure. 9. Currently appears euvolemic. PLAN: 1. The patient appears to be stable from a cardiac standpoint. 2. Although she is in atrial fibrillation, her ventricular response rate is very well controlled and she is tolerating Eliquis without bleeding complications. 3. 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 4. Continue Diltiazem CD 360 mg daily. 5. Continue Digoxin 125 mcg daily. 6. Continue Aspirin 81 mg daily. 7. Continue Lasix 40 mg daily with supplemental potassium chloride. 8. Continue to monitor daily weights, I&O's. 9. Maintain a low sodium, heart healthy diet. 10. Continue treating underlying pulmonary disease. 11. Continue supplemental oxygen. 12. The patient is stable from a cardiac standpoint -- there is no need for further cardiac intervention at this time other than to maintain her on her current medications. 13. Stable from a cardiac standpoint for discharge to home. Thank you for asking us to see this patient in consultation. JOSELINE
--- NOTE | 2017-04-16 15:06 | PULMONARY PROGRESS NOTE ---
DATE: 04/16/2017 TIME: 02:20 p.m. SUBJECTIVE: The patient immediately announced as soon as I walked in that she wants out. She wants to go home. She states she feels it is abuse to be here. She is feeling better and she admits that. She is less short of breath. The patient did have a low grade fever of 37.5 upon presentation. She is now afebrile. She did not, however, expectorate any sputum of any significant. She is not having any chest pain. She still has a catheter in place. The patient has been upset about her urinary incontinence. OBJECTIVE: GENERAL: The patient appeared comfortable at rest. She is very hard of hearing. She was talking nonstop without difficulty. VITAL SIGNS: Temperature is 36.8. Heart rate was 66 per minute. The rhythm is irregular. Blood pressure is 119/56. ENT: Unremarkable. CHEST: Auscultation of the lung luis revealed them to be clear. No wheezes, rales, or rhonchi were heard. The breath sounds were diminished in their intensity. Respiratory rate is 20. Saturation was 95% on 4 liters. EXTREMITIES: Showed no cyanosis, clubbing or edema. She has ecchymosis, especially on the arms and to a lesser degree on the legs. LABORATORY DATA: Blood sugar today is 130. Electrolytes show sodium 138, chloride 102, and bicarbonate 29. Her potassium was not done because it was hemolyzed. Yesterday's potassium was 3.8. On admission, she was as low as 3.0. The BUN is 30 with a creatinine of 0.89. On admission, the BUN was 14 with a creatinine of 0.75. Blood gas done on the showed a pH of 7.44 with a pCO2 of 49 and a pO2 of 143 done with 50% oxygen. White count today is 11.08. Hemoglobin 11.9. Platelets 210,000. IMPRESSIONS: 1. Acute on chronic respiratory failure with hypoxia and hypercarbia. 2. Chronic obstructive pulmonary disease exacerbation. 3. Left lower lobe infiltrate -- questionable pneumonia. 4. Left pleural effusion. 5. Congestive heart failure. COMMENTS AND RECOMMENDATIONS: The patient appears to be at baseline. She is demanding to go home. I have no strong objections. She is having trouble with urinary incontinence. She feels that the furosemide dose is too much. I have no objection to decreasing that to 20 mg daily. After the last hospital stay within 1-2 days, she had worsening edema and she had to have higher diuretics apparently at that time. She could go home with levofloxacin for a total of 1 week. This would be if the dose would be 500 mg daily. Would continue with her other medicines that she has been taking. The patient is at very high risk for coming back. I have told her many times that I feel she needs to live in an assisted living, but she refuses to even consider.
--- NOTE | 2017-04-16 15:22 | Discharge Instructions ---
Discharge Instructions Date of Service Apr 16, 2017. Admission Reason for Admission: Hypoxia, Pneumonia Discharge Discharge Diagnosis / Problem: Hypoxia, Pneumonia Discharge Goals Goal(s): Improve disease control, Diagnostic testing, Therapeutic intervention Activity Recommendations Activity Limitations: resume your previous activity Exercise/Sports Limitations: gradually increase as tolerated Shower/Bathe: no limitations . Instructions / Follow-Up Instructions / Follow-Up You were admitted with pneumonia and acute respiratory failure (low oxygen levels requiring use of BiPAP mask). You had improvement after being treated with IV antibiotics. You should finish out the two different antibiotics as directed and have a follow up chest xray with the Camp Program Director at your appointment as scheduled in 1-2 weeks. Please follow up with Cardiology and with your family doctor as scheduled. Current Hospital Diet Patient's current hospital diet: Low Sodium Diet (2gm Na) Discharge Diet Recommended Diet: Low Sodium Diet (2gm Na) Procedures Procedures Performed: Chest xray Pending Studies Studies pending at discharge: yes List of pending studies: Blood cultures-no growth to date Medical Emergencies . Who to Call and When: Medical Emergencies: If at any time you feel your situation is an emergency, please call 911 immediately. . Non-Emergent Contact Non-Emergency issues call your: Primary Care Provider, Tufting Creeler, Camp Program Director Call Non-Emergent contact if: temperature is above 100.5, you have any medication questions your shortness of breath worsens or for any other acute concerns . . "Provider Documentation" section prepared by Greta Prasad. . VTE Core Measure Inpt VTE Proph given/why not?: Other Anticoagulation
--- NOTE | 2017-04-16 15:34 | Discharge Summary ---
Discharge Summary Date of Service Apr 16, 2017. Discharge Summary Admission Date: Apr 14, 2017 at 11:44 Discharge Date: Apr 16, 2017 Discharge Disposition: Home with services Principal Diagnosis: HCAP, acute on chronic hypoxemic and hypercapnic respiratory failure Problems/Secondary Diagnoses: chronic A-fib on Eliquis acute on chronic diastolic CHF severe Pulm HTN and possible right sided CHF HTN chronic resp failure COPD h/o TAVR anxiety disorder Hypokalemia Nonobstructive CAD Hypothyroidism Immunizations: Have You Had Influenza Vaccine: No History of Tetanus Vaccine?: utd History of Hepatitis B Vaccine: No Procedures: Chest xray Consultations: Pulmonology Cardiology Medication Reconciliation New Medications: Doxycycline Hyclate (Doxycycline Hyclate) 100 Mg Cap 100 MG PO BID for 4 Days, #8 CAP Take with small amount of food and remain upright for 30 min afterwards Levofloxacin (Levaquin) 750 Mg Tab 750 MG PO Q2D, #2 TAB Next dose DUE 04/18/17 and then again on 04/20/17 Continued Medications: Alprazolam (Xanax) 0.25 Mg Tab 0.5 MG PO Q12 PRN for Anxiety, TAB Apixaban (Eliquis) 2.5 Mg Tab 2.5 MG PO BID Aspirin (Aspirin) 81 Mg Tab 81 MG PO Q24H Digoxin (Digoxin) 0.125 Mg Tab 0.125 MG PO DAILY@16 for 30 Days, TAB Diltiazem HCl (Diltiazem HCl ER) 360 Mg Tabcr 360 MG PO DAILY Docusate Sodium (Docusate Sodium) 100 Mg Cap 100 MG PO TID PRN for Constipation Ergocalciferol (Vitamin D 40476 Unit) 50,000 Unit Cap 19412 INTER.UNIT PO WK wednesdays Ferrous Sulfate (Ferrous Sulfate) 325 Mg Tab 325 MG PO Q2D Fluticasone Furoate-Vilanterol (Breo Ellipta) 1 Inh Inh 1 INHA PO DAILY Furosemide (Lasix) 40 Mg Tab 40 MG PO UD, TAB Home O2 Therapy (Oxygen) Gas 3-4 LITERS NA HS Latanoprost (Latanoprost) 37 Drops/2.5 Ml Soln 1 DROP OPB HS Levalbuterol (Levalbuterol HCl) 0.63 Mg/3 Ml Nebu 0.63 MG INH Q6R for 30 Days Levothyroxine Sodium (Levothyroxine Sodium) 75 Mcg Tab 75 MCG PO QAM, TAB Metoprolol Tartrate (Lopressor) 25 Mg Tab 12.5 MG PO BID for 30 Days, TAB Multiple Vitamins W/ Minerals (Multi Complete) 1 Cap Cap 1 CAP PO DAILY Potassium Chloride (Klor-Con M20) 20 Meq Tabcr 20 MEQ PO BID Prednisone (Prednisone) 10 Mg Tab 10 MG PO DAILY, #30 TAB Sucralfate (Carafate) 1 Gm Tab 1 GM PO TID, TAB Travoprost (Travatan Z) 0.004 % Bassam 1 DROPS OP HS, #1 BTL 5 Refills Discharge Exam Pt feels back to baseline and says "I have to get out of here." Seen by PT and was stable on her feet at her baseline. Is at her baseline home O2 requirement. No events on tele other than rate controlled A-fib Physical Exam General Appearance: no apparent distress, + thin (talkative) Eyes: normal inspection, sclerae normal ENT: + pertinent finding ([place]) Neck: trachea midline Respiratory/Chest: lungs clear, normal breath sounds, no respiratory distress, no accessory muscle use, moving air well throughout Cardiovascular: + irregularly irregular with normal rate Abdomen: normal bowel sounds, non tender, soft, no organomegaly Extremities: non-tender, normal inspection, no pedal edema, no calf tenderness Neurologic/Psychiatric: alert Skin: normal color, warm/dry, no rash Review of Systems: Constitutional: No fever, No chills Eyes: No problem reported ENT: + problem reported (hearing loss) Respiratory: No cough, No shortness of breath Cardiovascular: No chest pain Abdomen: + constipation, + problem reported (reports having some blood streaks in stool at home lately, has not had a BM yet here) Genitourinary - Female: + urinary incontinence (chronic, due to lasix) Neurologic: No problem reported Psychiatric: No problem reported (pt denies) Endocrine: No problem reported Hematologic / Lymphatic: No problem reported Integumentary: No problem reported Hospital Course Ms. Lane is an 87 yo female with a h/o chronic A-fib on Eliquis, chronic diastolic CHF, severe Pulm HTN and possible right sided CHF, HTN, chronic resp failure, COPD, h/o TAVR, anxiety disorder, here with acute on chronic hypoxemic and hypercapnic respiratory failure due to hospital acquired pneumonia as well as acute on chronic diastolic CHF. Acute on chronic hypoxemic and hypercapnic respiratory failure due to HCAP as well as acute on chronic diastolic CHF/COPD. Initially on BiPAP, abg showed CO2 retention but pH 7.44/PaCO2 49/PaO2 143. Was diuresed with IV lasix and weaned from BiPAP now down to baseline O2 requirement 4 LNC. LLL PNA on CXR. Completely back to baseline on day of discharge, using 4 LNC. Ambulating without significant dyspnea and stable on her feet as per PT. - consult pulmonology appreciated - continue 40mg lasix daily -continue Xopenex nebs q4h -received IV levaquin, vancomycin, and aztreonam for HCAP to cover for GNR PNA and MRSA PNA x 48hrs, MRSA nasal swab negative--> convert to Levaquin and doxycycline po for total 7 day course for discharge -continue prednisone 10mg daily as per previous taper-no wheezing and pt declines increase in dose -Consult Cardiology as per pt's request-no further changes to med list Hypokalemia-improved after IV K riders -continue po KCL 20 meq bid Chronic Atrial fibrillation, HTN, Nonobstructive CAD, h/o TAVR, Pulm HTN, CHF- all stable - continue eliquis for CVA prevention -continue digoxin, diltiazem, metoprolol for rate control - continue ASA Hypothyroid-TSH 3.53 in - continue home levothyroxine dose Anxiety - continue prn alprazolam Discharged to home with Home Health in stable condition Total Time Spent: Greater than 30 minutes This includes examination of the patient, discharge planning, medication reconciliation, and communication with other providers. Discharge Instructions Please refer to the electronic Patient Visit Report (Discharge Instructions) for additional information. Follow-Up PCP within 1-2 weeks Pulmonology in 1-2 weeks Repeat CXR in a few weeks Cardiology in 3 days as scheduled Additional Copies To Lee Rucker DO; Sheila Hurtado M.D.; John Garvin,P.A.
[2017-04-16] MEDS: DIGOXIN 0.125 MG TAB PO SCH (16:24)
[2017-04-17] MEDS ORDERED: VANCOMYCIN TROUGH ONE (13:30)
[2017-04-18] MEDS ORDERED: ERGOCALCIFEROL 50,000 INTER.UNIT CAP PO SCH (09:00)
== END 2017-04-16 16:43 | disposition home health service (06) | DRG 189 ==
LOC: EDBD 08:42 → C.EDA 08:44 → C.2T 11:44 → ENRESERV 12:05
PROVIDERS: ADMIT Specialist; ATTEND Family Medicine
PROC: 0T9B70Z Drainage of Bladder with Drainage Device, Via Natural or Artificial Opening (ICD-10-PCS; principal; 2017-04-14)
DX: J96.21 Acute and chronic respiratory failure with hypoxia (principal); I50.33 Acute on chronic diastolic (congestive) heart failure; J18.9 Pneumonia, unspecified organism; J44.0 Chronic obstructive pulmonary disease with (acute) lower respiratory infection; J44.1 Chronic obstructive pulmonary disease with (acute) exacerbation; J96.22 Acute and chronic respiratory failure with hypercapnia; Y95 Nosocomial condition; Z99.81 Dependence on supplemental oxygen; E87.6 Hypokalemia; I48.2 Chronic atrial fibrillation; I25.10 Atherosclerotic heart disease of native coronary artery without angina pectoris; I27.20 Pulmonary hypertension, unspecified; E03.9 Hypothyroidism, unspecified; F41.9 Anxiety disorder, unspecified; R91.1 Solitary pulmonary nodule; Z66 Do not resuscitate; Z95.2 Presence of prosthetic heart valve; Z87.891 Personal history of nicotine dependence; Z79.01 Long term (current) use of anticoagulants; Z79.51 Long term (current) use of inhaled steroids; Z79.52 Long term (current) use of systemic steroids; Z79.82 Long term (current) use of aspirin; Z79.899 Other long term (current) drug therapy; Z82.49 Family history of ischemic heart disease and other diseases of the circulatory system; Z91.040 Latex allergy status; Z91.041 Radiographic dye allergy status; Z88.0 Allergy status to penicillin; Z88.2 Allergy status to sulfonamides

== ENCOUNTER 2017-04-17 17:31 | Inpatient (IN) | payer OTHER ==
[~2017-04-17] VITALS: Ht 154.9 cm; Wt 55.4 kg
[~2017-04-17 17:31] MED LIST changes: +DXY100 PO; +LEVO1TAB35 PO; -PRED20TA PO
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
[2017-04-17 18:33] LABS: BASO % 0.1 %; BASO ABS # 0.01 K/uL (0-0.2); COMPLETE YES; EOS % 0.3 %; HEMATOCRIT 39.5 % (37-47); LYMPH % 4.5 %; LYMPH ABS # 0.55 K/uL (1.2-3.4); MEAN CELL VOLUME 93.8 fL (80-100); MEAN CORPUSCULAR HEMOGLOBIN 30.6 pg (25-34); MEAN CORPUSCULAR HGB CONC 32.7 g/dl (32-36); MEAN PLATELET VOLUME 9.9 fL (7.4-10.4); MONO % 6.2 %; NEUT % 87.9 %; PLATELET COUNT 216 K/uL (130-400); RED BLOOD COUNT 4.21 M/uL (4.2-5.4); WHITE BLOOD COUNT 12.21 K/uL (4.8-10.8)
--- NOTE | 2017-04-17 18:33 | DIAGNOSTIC IMAGING REPORT ---
CHEST ONE VIEW PORTABLE CLINICAL HISTORY: SOB dyspnea COMPARISON STUDY: 04/14/2017 FINDINGS: No change in left basilar pleural effusion and left basilar infiltrative process. Lungs otherwise appear clear. Very slight blunting right lateral costophrenic angle. No evidence for cardiac enlargement. IMPRESSION: Unchanged exam. Unchanging left and to a lesser extent right pleural effusion combined with a stable left basilar infiltrate. The above report was generated using voice recognition software. It may contain grammatical, syntax or spelling errors. Electronically signed by: Fred Metzger M.D. 04/17/2017 6:32 PM Dictated Date/Time: 04/17/2017 6:31 PM
[2017-04-17 18:41] LABS: INR 1.2 (0.9-1.1); PARTIAL THROMBOPLASTIN RATIO 1.1; PROTHROMBIN TIME (PATIENT) 12.8 SECONDS (9.0-12.0)
[2017-04-17 19:08] LABS: BUN/CREATININE RATIO 28.4 (10-20); CALCIUM 8.9 mg/dl (8.5-10.1); CREATININE 0.7 mg/dl (0.60-1.20); MAGNESIUM 1.8 mg/dl (1.8-2.4); POTASSIUM 3.5 mmol/L (3.5-5.1)
[2017-04-17 19:14] LABS: CKMB/CK RATIO 5.4 (0-3.0)
[2017-04-17] MEDS ORDERED: ASPIRIN 81 MG CHEW PO STA (20:19)
[2017-04-17] MEDS ORDERED: DOXYCYCLINE HYCLATE 100 MG CAP PO STA (21:29)
[2017-04-17] MEDS ORDERED: ALUMINUM/MAGNESIUM/SIMETH (MAALOX MAX) 30 ML UDC PO PRN (21:30)
[2017-04-17] MEDS ORDERED: ONDANSETRON INJ 2 MG/ML 2 ML VIAL IV PRN (21:30)
[2017-04-17] MEDS ORDERED: ALPRAZOLAM 0.25 MG TAB PO PRN (21:30)
[2017-04-17] MEDS ORDERED: POLYETHYLENE (MIRALAX) 17 GM PACK PO PRN (21:30)
[2017-04-17] MEDS ORDERED: NITROGLYCERIN 0.4 MG SL PER TAB CHARGE SL PRN (21:30)
[2017-04-17] MEDS ORDERED: ACETAMINOPHEN 325 MG TAB PO PRN (21:30)
[2017-04-17] MEDS ORDERED: MAGNESIUM HYDROXIDE SUSP 30 ML UDC PO PRN (21:30)
[2017-04-17 21:56] VITALS: BP 132/71; PULSE 86; TEMP 36.4; O2SAT 96; Ht 154.9 cm; Wt 55.4 kg
[2017-04-18] VITALS (14 sets, daily range): BP systolic 110–149; BP diastolic 64–98; PULSE 75–98; TEMP 36.1–36.9; O2SAT 91–100
--- NOTE | 2017-04-18 01:04 | History and Physical ---
History & Physical Date & Time of Service: Apr 18, 2017 at 00:45 Chief Complaint: Elevated Troponin, Sob Primary Care Physician: Sheila Hurtado M.D. History of Present Illness Source: patient The patient is an 87 year old female with a complex cardiopulmonary history including CAD, COPD, CHF, Aortic stenosis s/p TAVR, Afib, HTN, Pulmonary HTN and most recently a diagnosis of HCAP for which she was discharged yesterday, who presents to the hospital with shortness of breath. She is currently on a course of oral Levaquin and Doxycycline for her HCAP. The patient states that at the time of discharge yesterday, she felt relative well. However, when she went home she resumed feeling unwell. She states having nausea, chills and having worsening shortness of breath. She states that her 4 L baseline O2 oxygen requirement did not feel sufficient. She also complains of coughing dark yellow sputum which is a change for her compared to the time of discharge. She has had wheezing on and off though this is not new. She cannot tell me if nebulizers are helpful for her. She also complains of having some mild diarrhea, without blood or black tar. She denies chest pain, palpitations. The patient has had a poor appetite since being at home. In the ED she was found to have an elevated troponin so it was felt she should be admitted for further evaluation and monitoring. Past Medical/Surgical History Medical Problems: COPD CAD CHF (1) Anxiety Status: Chronic (2) Asthma Status: Chronic (3) Atrial fibrillation with RVR Status: Chronic (4) Back pain Status: Resolved (5) Back pain Status: Resolved (6) Benign hypertension Status: Chronic (7) Bronchitis Status: Resolved (8) Cataract Status: Chronic (9) Critical stenosis of aortic valve Status: Resolved (10) Dehydration Status: Resolved (11) Disorder of gallbladder Status: Chronic (12) Dyspnea Status: Chronic (13) Fall Status: Resolved (14) Humeral head fracture Status: Resolved (15) Hypoxia Status: Chronic (16) Kidney disease Status: Chronic (17) melanoma Status: Resolved (18) Neck pain Status: Resolved (19) Pneumonia Status: Resolved (20) Recurrent falls Status: Chronic (21) Right humeral fracture Status: Resolved (22) SOB (shortness of breath) Status: Chronic Family History Heart disease Hypertension No family history as endorsed by the patient. Social History Smoking Status: Former Smoker Smokeless Tobacco Use: No Alcohol Use: none Drug Use: none Marital Status: Housing status: lives alone Occupational Status: retired Immunizations History of Influenza Vaccine: No History of Tetanus Vaccine?: utd History of Hepatitis B Vaccine: No Multi-Drug Resistant Organisms History of MDRO: No Allergies Coded Allergies: Clonidine (Verified Allergy, Mild, SHORTNESS OF BREATH, 04/17/17) Iodinated Diagnostic Agents (Verified Allergy, Unknown, "IT JUST AFFECTS ME AND I CAN'T EXPLAIN IT", 04/17/17) Latex1 -Allergic Contact Dermititis (Verified Allergy, Unknown, RASH, ) Penicillins (Verified Allergy, Unknown, UNKNOWN, 04/17/17) Sulfa Antibiotics (Verified Allergy, Unknown, "SWELLING IN MOUTH AND DRIED OUT", 04/17/17) Home Medications Scheduled Apixaban (Eliquis), 2.5 MG PO BID Aspirin (Aspirin), 81 MG PO Q24H Digoxin (Digoxin), 0.125 MG PO DAILY@16 Diltiazem HCl (Diltiazem HCl ER), 360 MG PO DAILY Doxycycline Hyclate (Doxycycline Hyclate), 100 MG PO BID Ergocalciferol (Vitamin D 42360 Unit), 50,000 INTER.UNIT PO WK Ferrous Sulfate (Ferrous Sulfate), 325 MG PO Q2D Fluticasone Furoate-Vilanterol (Breo Ellipta), 1 INHA PO DAILY Furosemide (Lasix), 40 MG PO UD Home O2 Therapy (Oxygen), 3-4 LITERS NA HS Latanoprost (Latanoprost), 1 DROP OPB HS Levalbuterol (Levalbuterol HCl), 0.63 MG INH Q6R Levofloxacin (Levaquin), 750 MG PO Q2D Levothyroxine Sodium (Levothyroxine Sodium), 75 MCG PO QAM Metoprolol Tartrate (Lopressor), 12.5 MG PO BID Multiple Vitamins W/ Minerals (Multi Complete), 1 CAP PO DAILY Potassium Chloride (Klor-Con M20), 20 MEQ PO BID Prednisone (Prednisone), 10 MG PO DAILY Sucralfate (Carafate), 1 GM PO TID Travoprost (Travatan Z), 1 DROPS OP HS Scheduled PRN Alprazolam (Xanax), 0.5 MG PO Q12 PRN for Anxiety Docusate Sodium (Docusate Sodium), 100 MG PO TID PRN for Constipation Review of Systems A 10 point review of systems was negative unless stated above. Physical Exam Vital Signs Date Time Temp Pulse Resp B/P (MAP) Pulse Ox O2 Delivery O2 Flow Rate FiO2 04/17/17 21:56 36.4 86 20 132/71 96 Nasal Cannula 4.0 04/17/17 21:43 91 27 97 Nasal Cannula 4.0 04/17/17 21:31 146/90 04/17/17 21:28 91 18 93 04/17/17 21:28 94 Humidified Oxygen 4.0 04/17/17 21:13 92 28 92 04/17/17 21:01 137/95 04/17/17 20:58 94 23 90 04/17/17 20:43 87 26 96 04/17/17 20:31 136/81 04/17/17 20:28 94 18 99 04/17/17 20:13 91 23 98 04/17/17 20:01 155/107 04/17/17 19:58 97 19 99 04/17/17 19:43 94 23 99 04/17/17 19:31 151/74 04/17/17 19:28 98 23 99 04/17/17 19:13 87 23 99 04/17/17 19:03 Nasal Cannula 4.0 04/17/17 19:01 134/85 04/17/17 18:58 99 27 99 04/17/17 18:53 129/77 04/17/17 18:45 90 25 Nasal Cannula 4.0 04/17/17 18:00 98 04/17/17 17:36 37.1 107 22 121/83 97 Nasal Cannula General Appearance: WD/WN, no apparent distress Head: normocephalic, atraumatic Eyes: normal inspection, EOMI ENT: hearing grossly normal, pharynx normal Neck: supple, no adenopathy, no JVD Respiratory/Chest: lungs clear, no respiratory distress, + accessory muscle use , + pertinent finding (nasal cannula oxygen) Cardiovascular: no gallop, no murmur, + irregularly irregular Abdomen/GI: normal bowel sounds, non tender, soft Back: no CVA tenderness, no muscle spasm Extremities/Musculoskelatal: no calf tenderness, no pedal edema Neurologic/Psych: alert, normal mood/affect, oriented x 3 Skin: normal color, warm/dry, no rash Lymphatic: no adenopathy Diagnostics Laboratory Results Results Past 24 Hours Test 04/17/17 18:15 04/17/17 18:25 Range/Units White Blood Count 12.21 4.8-10.8 K/uL Red Blood Count 4.21 4.2-5.4 M/uL Hemoglobin 12.9 12.0-16.0 g/dL Hematocrit 39.5 37-47 % Mean Corpuscular Volume 93.8 80-100 fL Mean Corpuscular Hemoglobin 30.6 25-34 pg Mean Corpuscular Hemoglobin Concent 32.7 32-36 g/dl Platelet Count 216 130-400 K/uL Mean Platelet Volume 9.9 7.4-10.4 fL Neutrophils (%) (Auto) 87.9 % Lymphocytes (%) (Auto) 4.5 % Monocytes (%) (Auto) 6.2 % Eosinophils (%) (Auto) 0.3 % Basophils (%) (Auto) 0.1 % Neutrophils # (Auto) 10.73 1.4-6.5 K/uL Lymphocytes # (Auto) 0.55 1.2-3.4 K/uL Monocytes # (Auto) 0.76 0.11-0.59 K/uL Eosinophils # (Auto) 0.04 0-0.5 K/uL Basophils # (Auto) 0.01 0-0.2 K/uL RDW Standard Deviation 46.6 36.4-46.3 fL RDW Coefficient of Variation 13.5 11.5-14.5 % Immature Granulocyte % (Auto) 1.0 % Immature Granulocyte # (Auto) 0.12 0.00-0.02 K/uL Prothrombin Time 12.8 9.0-12.0 SECONDS Prothromb Time International Ratio 1.2 0.9-1.1 Activated Partial Thromboplast Time 29.6 21.0-31.0 SECONDS Partial Thromboplastin Ratio 1.1 Sodium Level 135 136-145 mmol/L Potassium Level 3.5 3.5-5.1 mmol/L Chloride Level 98 98-107 mmol/L Carbon Dioxide Level 29 21-32 mmol/L Anion Gap 8.0 3-11 mmol/L Blood Urea Nitrogen 20 7-18 mg/dl Creatinine 0.70 0.60-1.20 mg/dl Est Creatinine Clear Calc Drug Dose 43.5 ml/min Estimated GFR () 90.9 Estimated GFR (Non- 78.5 BUN/Creatinine Ratio 28.4 10-20 Random Glucose 116 70-99 mg/dl Calcium Level 8.9 8.5-10.1 mg/dl Magnesium Level 1.8 1.8-2.4 mg/dl Total Bilirubin 0.6 0.2-1 mg/dl Direct Bilirubin 0.2 0-0.2 mg/dl Aspartate Amino Transf (AST/SGOT) 15 15-37 U/L Alanine Aminotransferase (ALT/SGPT) 22 12-78 U/L Alkaline Phosphatase 69 45-117 U/L Total Creatine Kinase 24 26-192 U/L Creatine Kinase MB 1.3 0.5-3.6 ng/ml Creatine Kinase MB Ratio 5.4 0-3.0 Troponin I 0.062 0-0.045 ng/ml Total Protein 6.6 6.4-8.2 gm/dl Albumin 3.1 3.4-5.0 gm/dl Bedside Troponin I 0.050 0-0.045 ng/ml Diagnostic Radiology [~ rep ct add3]] CHEST ONE VIEW PORTABLE CLINICAL HISTORY: SOB dyspnea COMPARISON STUDY: 04/14/2017 FINDINGS: No change in left basilar pleural effusion and left basilar infiltrative process. Lungs otherwise appear clear. Very slight blunting right lateral costophrenic angle. No evidence for cardiac enlargement. IMPRESSION: Unchanged exam. Unchanging left and to a lesser extent right pleural effusion combined with a stable left basilar infiltrate. The above report was generated using voice recognition software. It may contain grammatical, syntax or spelling errors. Electronically signed by: Frde Metzger M.D. 04/17/2017 6:32 PM Dictated Date/Time: 04/17/2017 6:31 PM The status of this report is Signed. Draft = Not yet reviewed or approved by Radiologist. Signed = Reviewed and approved by Radiologist EKG Poor data quality, interpretation may be adversely affected Atrial fibrillation with rapid ventricular response Left axis deviation Non-specific intra-ventricular conduction block T wave abnormality, consider lateral ischemia Abnormal ECG When compared with ECG of 14-APR-2017 08:55, ST elevation now present in Anterior leads T wave inversion less evident in Lateral leads 25mm/s 10mm/mV 150Hz 8.0 SP2 12SL 241 MELA: 10 Referred by: Referred Self Unconfirmed Impression Assessment and Plan 87 year old female with multiple cardiorespiratory co-morbidities as noted previous who presents with shortness of breath and positive troponin in the ER. Our plan for her is as follows: - Elevated troponin: Patient never had chest pain. EKG reads ST elevation anteriorly, though this may be early repolarization. At this time we will trend troponins every 6 hours. An echocardiogram has been ordered for the morning. The patient has gotten 324 ASA in the ER. Sublingual Nitro with Chest pain. EKG with chest pain. The patient follows with John Garvin PA-C, I will consult cardiology given complex cardiac history. My suspicion at this time is given her multiple cardiac and respiratory issues, I suspect this is supply/demand mismatch. - HCAP: Clinical exam and imaging does not indicate worsening. Continue oral Levaquin and Doxycycline. - Diastolic CHF: Echo pending in the setting of elevated troponin. Continue home doses of Metoprolol, Digoxin and Lasix. - COPD: Duonebs ordered. Continue with 10 mg Prednisone daily. Day team to clarify whether this is a chronic regimen or whether she is tapering, the patient was unclear on which it is. - Atrial Fibrillation: Continue Metoprolol and Digoxin. Continue Eliquis for anticoagulation. - CAD, Hypertension: Continue ASA, Metoprolol, Nitroglycerine - Aortic stenosis, hx of TAVR: no acute management at this time. - Pulmonary HTN: no acute management at this time - Hypothyroidism: Continue Levothyroxine - Anxiety: Continue Alprazolam - DVT prophylaxis: SCDs, TEDs, Eliquis - PT and OT ordered - Level 5 DNR - Telemetry Attending addendum: I have physically seen this patient, have supervised the medical residents activities, and agree with the H&P unless as otherwise noted. Assessment and Plan: CAD/hypertension/CHF/atrial fibrillation /critical aortic stenosis/status post TAVR/mildly elevated troponin 0.062-- The patient will be admitted to telemetry for serial cardiac enzymes, cardiac rhythm monitoring and a 2-D echocardiogram with Dopplers. Likely supply demand mismatch. Continue current regimen of metoprolol, digoxin, Eliquis, Cardizem, aspirin and nitroglycerin. COPD/pulmonary hypertension-- Continue current regimen of inhalers and meds. Anxiety-- Continue alprazolam She likely would benefit from the addition of a preventative medication such as Lexapro. Level of Care Telemetry Advanced Directives Existing Advance Directive: Yes Existing Living Will: No Existing Power of Community Health Navigator: No Resuscitation Status DO NOT RESUSCITATE VTE Prophylaxis VTE Risk Assessment Done? Y/N: Yes Risk Level: Moderate Given or contraindicated: Other Anticoagulation (Eliquis)
[2017-04-18] MEDS: IPRATROPIUM BROMIDE NEB SOLN 0.02% 2.5 ML VIAL INH SCH ×4 (03:00→19:24)
[2017-04-18] MEDS ORDERED: LEVALBUTEROL/IPRATROPIUM NEB INH SCH (03:00)
[2017-04-18] MEDS: LEVALBUTEROL 1.25MG/0.5ML NEB INH SCH ×4 (03:00→19:24)
[2017-04-18 04:07] LABS: CKMB/CK RATIO 8.2 (0-3.0)
[2017-04-18] MEDS: LEVOTHYROXINE 75 MCG TAB PO SCH (06:26)
[2017-04-18] MEDS: DILTIAZEM HCL 180 MG CAPCR PO SCH (07:54)
[2017-04-18] MEDS: CEROVITE ADV FORMULA TAB PO SCH (07:54)
[2017-04-18] MEDS: POTASSIUM CHLORIDE 20 MEQ TABCR PO SCH ×2 (07:55→20:26)
[2017-04-18] MEDS: METOPROLOL TARTRATE 25 MG TAB PO SCH ×2 (07:57→20:23)
[2017-04-18] MEDS: APIXABAN 2.5 MG TAB PO SCH ×2 (07:59→20:25)
[2017-04-18] MEDS: DOXYCYCLINE HYCLATE 100 MG CAP PO SCH ×2 (07:59→20:26)
[2017-04-18] MEDS: ASPIRIN 81 MG ECTAB PO SCH (07:59)
[2017-04-18] MEDS ORDERED: ERGOCALCIFEROL 50,000 INTER.UNIT CAP PO SCH (09:00)
--- NOTE | 2017-04-18 09:00 | Clinical Documentation Query ---
CLINICAL DOCUMENTATION QUERY An 87 year old female with a history of atrial fibrillation with RVR who presents to the Emergency Room with complaints of worsening respiratory problems that started earlier this month. In your clinical opinion is this patient being managed for: ( ) Type 2 CA resulting from demand ischemia ( ) Not Agree ( ) Other explanation of clinical findings (Please Explain) ( ) Unable to determine (Please Define) ( ) Need to Discuss The medical record reflects the following clinical findings, treatment, and risk factors. Clinical Indicators: Troponin 0.062, EKG = Afib w/rvr and ST elevation, O2 demand at 4L Treatment: Serial troponins, echo, serial EKG, O2, ASA 324mg PO Risk Factors: Age, HTN, diastolic CHF, Please clarify and document your clinical opinion in the progress notes and discharge summary. Terms such as "probable", "suspected", "likely", "questionable", "possible", or "still to be ruled out" are acceptable. IF IN AGREEMENT, YOU MUST DOCUMENT ABOVE DIAGNOSTIC STATEMENT IN DAILY PROGRESS NOTES AND DISCHARGE SUMMARY. This document is not part of the patient's record. Thank You, Julianna Krueger RN [phone]
[2017-04-18] MEDS ORDERED: FUROSEMIDE 40 MG TAB PO ONE (09:32)
--- NOTE | 2017-04-18 10:00 | ECHOCARDIOGRAM REPORT ---
*NOTICE TO RECEIVING DEMOCRAT AGENCY This information is strictly Confidential and protected under [place] law. [place] law prohibits you from making any further disclosure of this information unless further disclosure is expressly permitted by the written consent of the person to whom it pertains or is authorized by law. A general authorization for the release of medical or other information is not sufficient for this purpose. Hospital accepts no responsibility if the information is made available to any other person, INCLUDING THE PATIENT. Interpretation Summary * Name: FLAVIA MORENO Study Date: 04/18/2017 07:11 AM BP: 145/68 mmHg * Patient Location: [facility]\S\N283\S\2 HR: 89 * : 1930 (M/d/yyyy) Gender: Female Height: 61 in * Age: 87 yrs Ethnicity: CA Weight: 112 lb * Ordering Physician: Edgar Bowen * Referring Physician: Self, Referred * Performed By: Maddy Oreilly RDCS * * Reason For Study: ELEVATED TROPONIN, AMI * BSA: 1.5 m2 * -- Conclusions -- * Left ventricular systolic function is normal. * There is moderate concentric left ventricular hypertrophy. * The left atrium is mildly dilated. * There is a bioprosthetic aortic valve. * There is mild-moderate collette-prosthetic regurgitation. * There is moderate mitral regurgitation. * Right ventricular systolic pressure is elevated at 30-40mmHg. * Compared to study from 10/24/2016, the bioprosthetic gradients are similar. The degree of periprosthetic regurgitation appears slightly worse. Procedure Details * A complete two-dimensional transthoracic echocardiogram was performed (2D, M-mode, Doppler and color flow Doppler). Left Ventricle * The left ventricle is normal in size. * There is moderate concentric left ventricular hypertrophy. * Ejection Fraction = 55-60%. * Left ventricular systolic function is normal. * The left ventricular wall motion is normal. Right Ventricle * The right ventricle is normal in size and function. Atria * The left atrium is mildly dilated. * Right atrial size is normal. Mitral Valve * The mitral valve anatomy is normal. * There is moderate mitral regurgitation. Tricuspid Valve * The tricuspid valve is not well visualized, but is grossly normal. * There is trace tricuspid regurgitation. * Right ventricular systolic pressure is elevated at 30-40mmHg. Aortic Valve * There is a bioprosthetic aortic valve. * The gradient is normal for this prosthetic aortic valve. * There is mild-moderate collette-prosthetic regurgitation. Great Vessels * The aortic root is normal size. Pericardium/Pleural * There is no pericardial effusion. MMode 2D Measurements and Calculations IVSd 1.6 cm IVSs 2.1 cm LVIDd 3.5 cm LVIDs 2.4 cm LVPWd 2.1 cm LVPWs 1.9 cm IVS/LVPW 0.76 FS 32.5 % EDV(Teich) 51.2 ml ESV(Teich) 19.5 ml EF(Teich) 61.9 % EDV(cubed) 43.3 ml ESV(cubed) 13.3 ml EF(cubed) 69.3 % % IVS thick 30.6 % % LVPW thick -10.13 % LV mass(C)d 271.1 grams LV mass(C)dI 183.6 grams/m\S\2 LV mass(C)s 197.5 grams LV mass(C)sI 133.8 grams/m\S\2 SV(Teich) 31.7 ml SI(Teich) 21.5 ml/m\S\2 SV(cubed) 30.0 ml SI(cubed) 20.3 ml/m\S\2 Ao root diam 2.7 cm Ao root area 5.9 cm\S\2 LA dimension 4.1 cm LA/Ao 1.5 LVOT diam 1.9 cm LVOT area 2.8 cm\S\2 LVAd ap4 18.9 cm\S\2 LVLd ap4 6.6 cm EDV(MOD-sp4) 42.8 ml EDV(sp4-el) 45.4 ml LVAs ap4 11.3 cm\S\2 LVLs ap4 5.9 cm ESV(MOD-sp4) 19.7 ml ESV(sp4-el) 18.3 ml EF(MOD-sp4) 54.1 % EF(sp4-el) 59.7 % LVAd ap2 18.4 cm\S\2 LVLd ap2 7.1 cm EDV(MOD-sp2) 38.8 ml EDV(sp2-el) 40.2 ml LVAs ap2 10.7 cm\S\2 LVLs ap2 5.9 cm ESV(MOD-sp2) 17.5 ml ESV(sp2-el) 16.5 ml EF(MOD-sp2) 54.8 % EF(sp2-el) 59.0 % LVLd %diff 6.8 % EDV(MOD-bp) 42.0 ml LVLs %diff -1.29 % ESV(MOD-bp) 18.6 ml EF(MOD-bp) 55.8 % SV(MOD-sp4) 23.2 ml SI(MOD-sp4) 15.7 ml/m\S\2 SV(MOD-sp2) 21.3 ml SI(MOD-sp2) 14.4 ml/m\S\2 SV(MOD-bp) 23.4 ml SI(MOD-bp) 15.9 ml/m\S\2 SV(sp4-el) 27.1 ml SI(sp4-el) 18.4 ml/m\S\2 SV(sp2-el) 23.7 ml SI(sp2-el) 16.1 ml/m\S\2 Doppler Measurements and Calculations MV E max tomas 113.2 cm/sec MV dec time 0.23 sec Ao V2 max 286.4 cm/sec Ao max PG 32.8 mmHg Ao max PG (full) 26.3 mmHg Ao V2 mean 185.0 cm/sec Ao mean PG 15.8 mmHg Ao mean PG (full) 12.4 mmHg Ao V2 VTI 44.5 cm BINA(I,A) 1.6 cm\S\2 BINA(I,D) 1.6 cm\S\2 BINA(V,A) 1.2 cm\S\2 BINA(V,D) 1.2 cm\S\2 LV V1 max PG 6.5 mmHg LV V1 mean PG 3.3 mmHg LV V1 max 127.3 cm/sec LV V1 mean 85.2 cm/sec LV V1 VTI 25.6 cm MR max tomas 491.1 cm/sec MR max PG 96.5 mmHg SV(Ao) 260.6 ml SI(Ao) 176.5 ml/m\S\2 SV(LVOT) 70.7 ml SI(LVOT) 47.8 ml/m\S\2 TR max tomas 281.8 cm/sec
[2017-04-18] MEDS: SUCRALFATE 1 GM TAB PO SCH ×3 (11:11→20:25)
[2017-04-18] MEDS: LEVOFLOXACIN 750 MG TAB PO SCH (11:11)
[2017-04-18] MEDS: NYSTATIN OINT 15 GM TUBE EXT SCH ×2 (12:45→20:22)
--- NOTE | 2017-04-18 12:51 | CARDIOLOGY CONSULTATION REPORT ---
DATE OF CONSULTATION: 04/18/2017 REASON FOR CONSULTATION: 1. Elevated troponin I. 2. Shortness of breath. HISTORY OF PRESENT ILLNESS: Mrs. 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 The patient did reasonably well the first day when she was home from the hospital, but the following day she developed progressive shortness of breath, difficulty speaking full sentences due to her breathing, profound dyspnea with even minimal exertion, some nausea, and generalized weakness. The patient called 911. When EMS arrived, she was tachypneic with a respiratory rate of 36 breaths per minute, and hypoxic with a SpO2 of 88% on 3 liters of oxygen via nasal cannula. Shortly thereafter, they increased her supplemental oxygen flow to 5 liters per minute, and her O2 saturations were above 90% thereafter. In the Emergency Room, she was noted to have a mildly elevated white blood cell count, elevated troponin I level, and chest x-ray showed small bilateral pleural effusion as well as a left lower lobe infiltrate. EKG showed atrial fibrillation with a ventricular response rate of 104 beats per minute, LBBB pattern, and left axis deviation. No acute changes were noted. Therefore, patient was admitted on a monitored bed for serial cardiac enzymes and further cardiac workup. At the present time, her breathing has improved significantly, but she is not back to baseline. The patient denies any chest pain, heaviness, tightness, pressure, or discomfort. She denies any neck, jaw, back, or arm pain. She is still short of breath with prolonged speaking and with moving around in her bed. She denies any orthopnea or PND. She has not had any elevated heart rates to her knowledge. She still has some mild degree of nausea. MEDICATIONS: 1. Ferrous sulfate 325 mg every other day. 2. Lasix 40 mg p.o. q. daily. 3. Xalatan ophthalmic solution 1 drop in both eyes at bedtime. 4. Digoxin 125 mcg daily. 5. Levofloxacin 750 mg p.o. every other day. 6. Eliquis 2.5 mg b.i.d. 7. Aspirin 81 mg daily. 8. Doxycycline 100 mg b.i.d. 9. Vitamin D 50,000 international units every Sunday. 10. Lopressor 12.5 mg p.o. b.i.d. 11. KCL 20 mEq b.i.d. 12. Prednisone 10 mg daily. 13. Carafate 1 g t.i.d. 14. Diltiazem CD 360 mg daily. 15. Multivitamin with minerals once daily. 16. Levothyroxine 75 mcg daily. 17. Atrovent nebulizer q. 6 hours. 18. Levalbuterol nebulizers q. 6 hours. 19. Tylenol p.r.n. 20. Maalox p.r.n. 21. Milk of magnesia p.r.n. 22. Zofran 4 mg IV q. 6 hours p.r.n. for nausea. 23. Sublingual nitroglycerin as needed. 24. MiraLax 17 g daily as needed. 25. Xanax 0.5 mg p.o. q. 12 hours p.r.n. for anxiety. 26. Colace 100 mg p.o. t.i.d. ALLERGIES: 1. CLONIDINE. 2. IODINATED CONTRAST AGENTS. 3. LATEX. 4. PENICILLINS. 5. SULFA. PAST MEDICAL HISTORY: 1. Chronic atrial fibrillation (rate controlled and on Eliquis). 2. Severe COPD. 3. Severe pulmonary hypertension. 4. History of chronic respiratory failure. 5. History of severe/critical status post TAVR, 10/18/2016. 6. Moderate concentric LVH with diastolic dysfunction. 7. Mild MR. 8. Moderate TR. 9. History of diastolic and right sided CHF. 10. Recent pneumonia. 11. Oxygen dependent. 12. Hypertension. 13. History of right humeral fracture. 14. History of chronic kidney disease. 15. Former smoker. SOCIAL HISTORY: The patient is and lives alone in the local area. She has healthcare aide who spends time with her daily. Previously a smoker. Quit several year ago. 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 She has 1 son who lives in the [place] area. No family locally. FAMILY HISTORY: Noncontributory. PHYSICAL EXAMINATION: VITAL SIGNS: Temperature is 37.1 degree Celsius, pulse is 85- 89 and irregularly regular, respiratory rate is 18 and unlabored, blood pressure is 145/68. SpO2 is 94% on 4 liters of oxygen via nasal canal. GENERAL: Chronically ill appearing female in no acute distress. HEENT: Head is atraumatic, normocephalic. EOMs intact. Sclerae are anicteric. Face is symmetric. No perioral cyanosis. Mucous membranes are moist. NECK: Without thyromegaly, adenopathy, or JVD. Jugular venous pressure is at the level of clavicle sitting upright. CHEST AND LUNGS: Diminished breath sounds throughout, faint crackles in the left lower lung luis. No wheezes noted, but she does have a prolonged expiratory phase. CARDIOVASCULAR: S1 and S2 are irregularly irregular at a rate of approximately 80 beats per minute with grade 1/6 basal and mid systolic murmur which does not appear to radiate, accentuated aortic valve closure sound. No diastolic murmurs appreciated. No gallops or rubs. PMI is nondisplaced. No lifts, heaves, or thrills. ABDOMEN: Bowel sounds are present. No masses, organomegaly or tenderness. EXTREMITIES: No clubbing, cyanosis, or edema. NEUROLOGICALLY: The patient is awake, alert and interactive. Answers questions appropriately for the most part. Speech is clear. Normal movement in all 4 extremities. Nolan pattern no assessed. Telemetry monitoring reveals Atrial Fibrillation throughout her stay, heart rates generally in the 70s and low 80s overnight. EKG performed on 04/09/2017 shows atrial fibrillation with a ventricular response rate of 104 beats per minute with left axis deviation, left bundle branch block pattern. No obvious acute changes. LABORATORY DATA: White blood cell count is 12.21, hemoglobin 12.5 grams/dL, hematocrit 39.5%, platelet count 216,000. Total CKs are 17 and 24 units per liter with respect to CK-MB of 1.4 and 1.3 ng/mL. Troponin I levels are 0.048, 0.050 and 0.062 ng/mL. ECHOCARDIOGRAM PERFORMED EARLIER TODAY SHOWS: 1. Normal LV systolic function, LVEF 55% to 60% with normal wall motion. 2. Moderate concentric LVH with diastolic dysfunction. 3. Mildly dilated left atrium. 4. Bioprosthetic aortic valve with mild to moderate periprosthetic regurgitation. 5. Moderate MR. 6. RVSP is elevated at 30-40 mmHg. 7. Normal RV size and systolic function. ASSESSMENT: 1. Elevated troponin I level, this does NOT appear to be an acute coronary syndrome. This is most likely a myocardial oxygen supply demand mismatch related to left ventricular hypertrophy, atrial fibrillation, and hypoxia. 2. Severe chronic obstructive pulmonary disease, pulmonary hypertension. 3. Chronic respiratory failure. 4. Atrial Fibrillation, chronic (rate controlled and on Eliquis). 5. Mild coronary artery disease on cardiac catheterization in September 2016. 6. Normal left ventricular systolic function, normal right ventricular systolic function. 7. History of s/p TAVR with mild to moderate periprosthetic regurgitation. 8. Diagnoses mentioned above. PLAN: 1. I have explained to the patient why her troponin I levels are most likely elevated and she verbalized understanding of this discussion. 2. Recommend continued use of Lopressor 12.5 mg b.i.d. 3. Recommend continued Cardizem CD 360 mg daily. 4. Continue Digoxin 0.125 mg daily. 5. Continue Eliquis 2.5 mg b.i.d. 6. Continue Lasix and potassium chloride as directed. 7. Continue Aspirin 81 mg daily. 8. Ongoing antibiotic therapy for suspected HCAP. 9. Continue aggressive management of underlying lung disease. 10. She does not have any evidence of volume overload at this time. Thank you for asking us to see this patient in consultation. Further ischemic workup is not necessary at this time. BURAKD
--- NOTE | 2017-04-18 13:15 | Hospitalist Progress Note ---
Hospitalist Progress Note Date of Service Apr 18, 2017. (Luz Harris ., CARLOS) Subjective Pt evaluation today including: conversation w/ patient, physical exam, chart review, lab review, review of inpatient medication list Ms. Lane continues to feel unwell today. She complains of cough productive of yellow sputum, dyspnea, nausea, bowel movements that "look like mud", and urinary retention which she feels is due to having had a catheter during her last admission. ROS Constitutional: no chills, aches, sweats or fever Respiratory: see HPI Cardiac: no chest pain, palpitations, edema, orthopnea or lightheadedness GI: no abdominal pain, vomiting, diarrhea or constipation : see HPI Extremities: no joint pain or weakness Skin: no rash Neurologic: + memory loss Skin: No rash All Other Systems: Reviewed and Negative (uLz Harris CRNP) Medications Medications Administered Medications (Trade) Dose Ordered Sig/Yared Route Start Time Stop Time Status Last Admin Dose Admin Aspirin (Aspirin Chew) 324 mg NOW STAT PO 04/17/17 20:19 04/17/17 20:22 DC 04/17/17 20:46 324 MG Apixaban (Eliquis Tab) 2.5 mg BID PO 04/18/17 09:00 05/18/17 08:59 04/18/17 07:59 2.5 MG Aspirin (Ecotrin Tab) 81 mg DAILY PO 04/18/17 09:00 05/18/17 08:59 04/18/17 07:59 81 MG Doxycycline Hyclate (Vibramycin Cap) 100 mg BID PO 04/18/17 09:00 04/21/17 08:59 04/18/17 07:59 100 MG Ergocalciferol (Vitamin D Cap) 50,000 interunit We@0900 PO 04/18/17 09:00 05/18/17 08:59 04/18/17 07:55 50,000 INTERUNIT Levofloxacin (Levaquin Tab) 750 mg Q2D@1100 PO 04/18/17 11:00 04/20/17 11:01 04/18/17 11:11 750 MG Levothyroxine Sodium (Synthroid Tab) 75 mcg DAILYBB PO 04/18/17 06:30 05/18/17 06:59 04/18/17 06:26 75 MCG Metoprolol Tartrate (Lopressor Tab) 12.5 mg BID PO 04/18/17 09:00 05/18/17 08:59 04/18/17 07:57 12.5 MG Potassium Chloride (Klor-Con Tab) 20 meq BID PO 04/18/17 09:00 05/18/17 08:59 04/18/17 07:55 20 MEQ Prednisone (PredniSONE TAB) 10 mg DAILY PO 04/18/17 09:00 05/18/17 08:59 04/18/17 07:58 10 MG Sucralfate (Carafate Tab) 1 gm TID PO 04/18/17 09:00 05/18/17 08:59 04/18/17 11:11 1 GM Diltiazem HCl (Cardizem Cd Cap) 360 mg DAILY PO 04/18/17 09:00 05/18/17 08:59 04/18/17 07:54 360 MG Multivitamins/ Minerals (Multivitamin W/ Minerals Tab) 1 tab DAILY PO 04/18/17 09:00 05/18/17 08:59 04/18/17 07:54 1 TAB Doxycycline Hyclate (Vibramycin Cap) 100 mg NOW STAT PO 04/17/17 21:29 04/17/17 21:31 DC 04/17/17 21:43 100 MG Ipratropium [place] (Atrovent 0.02% 0.5MG/2.5ML Neb) 0.5 mg Q6R INH 04/18/17 03:00 05/18/17 02:59 04/18/17 07:22 0.5 MG Levalbuterol (Xopenex 1.25MG/ 0.5ML Neb) 1.25 mg Q6R INH 04/18/17 03:00 05/18/17 02:59 04/18/17 07:22 1.25 MG Furosemide (Lasix Tab) 40 mg 0932 ONCE PO 04/18/17 09:32 04/18/17 09:47 DC 04/18/17 11:13 40 MG (Luz Harris, CARLOS) Objective Vital Signs Date Time Temp Pulse Resp B/P (MAP) Pulse Ox O2 Delivery O2 Flow Rate FiO2 04/18/17 12:18 36.9 75 18 110/66 (81) 96 Nasal Cannula 4.0 04/18/17 09:18 82 91 04/18/17 08:58 94 Nasal Cannula 4.0 04/18/17 07:31 36.1 89 18 145/68 (93) 94 Nasal Cannula 4.0 04/18/17 07:22 85 16 94 Nasal Cannula 4.0 04/18/17 04:21 36.4 89 20 133/98 (110) 99 2.0 04/18/17 04:00 96 Nasal Cannula 4.0 04/18/17 00:00 96 Nasal Cannula 4.0 04/17/17 21:56 36.4 86 20 132/71 96 Nasal Cannula 4.0 04/17/17 21:43 91 27 97 Nasal Cannula 4.0 04/17/17 21:31 146/90 04/17/17 21:28 91 18 93 04/17/17 21:28 94 Humidified Oxygen 4.0 04/17/17 21:13 92 28 92 04/17/17 21:01 137/95 04/17/17 20:58 94 23 90 04/17/17 20:43 87 26 96 04/17/17 20:31 136/81 04/17/17 20:28 94 18 99 04/17/17 20:13 91 23 98 04/17/17 20:01 155/107 04/17/17 19:58 97 19 99 04/17/17 19:43 94 23 99 04/17/17 19:31 151/74 04/17/17 19:28 98 23 99 04/17/17 19:13 87 23 99 04/17/17 19:03 Nasal Cannula 4.0 04/17/17 19:01 134/85 04/17/17 18:58 99 27 99 04/17/17 18:53 129/77 04/17/17 18:45 90 25 Nasal Cannula 4.0 04/17/17 18:00 98 04/17/17 17:36 37.1 107 22 121/83 97 Nasal Cannula (Luz Harris, CARLOS) Physical Exam Notes: General: no distress Eyes: normal inspection, PERLL Respiratory: chest non tender, clear to auscultation, normal breath sounds, no respiratory distress, no accessory muscle use Cardiac: irregular rate and rhythm, no rub or gallop, systolic murmur 2/6, no edema, no jvd GI/: active bowel sounds, no abd pain or tenderness, soft, non distended Extremities: normal range of motion, normal strength, non tender Neuro/Psych: alert and oriented x 3, normal mood and affect Skin: normal color, dry (Luz Harris, CARLOS) Laboratory Results Last 24 Hours Test 04/17/17 18:15 04/17/17 18:25 04/18/17 03:31 04/18/17 11:16 White Blood Count 12.21 K/uL Red Blood Count 4.21 M/uL Hemoglobin 12.9 g/dL Hematocrit 39.5 % Mean Corpuscular Volume 93.8 fL Mean Corpuscular Hemoglobin 30.6 pg Mean Corpuscular Hemoglobin Concent 32.7 g/dl Platelet Count 216 K/uL Mean Platelet Volume 9.9 fL Neutrophils (%) (Auto) 87.9 % Lymphocytes (%) (Auto) 4.5 % Monocytes (%) (Auto) 6.2 % Eosinophils (%) (Auto) 0.3 % Basophils (%) (Auto) 0.1 % Neutrophils # (Auto) 10.73 K/uL Lymphocytes # (Auto) 0.55 K/uL Monocytes # (Auto) 0.76 K/uL Eosinophils # (Auto) 0.04 K/uL Basophils # (Auto) 0.01 K/uL RDW Standard Deviation 46.6 fL RDW Coefficient of Variation 13.5 % Immature Granulocyte % (Auto) 1.0 % Immature Granulocyte # (Auto) 0.12 K/uL Prothrombin Time 12.8 SECONDS Prothromb Time International Ratio 1.2 Activated Partial Thromboplast Time 29.6 SECONDS Partial Thromboplastin Ratio 1.1 Sodium Level 135 mmol/L Potassium Level 3.5 mmol/L Chloride Level 98 mmol/L Carbon Dioxide Level 29 mmol/L Anion Gap 8.0 mmol/L Blood Urea Nitrogen 20 mg/dl Creatinine 0.70 mg/dl Est Creatinine Clear Calc Drug Dose 43.5 ml/min Estimated GFR () 90.9 Estimated GFR (Non- 78.5 BUN/Creatinine Ratio 28.4 Random Glucose 116 mg/dl Calcium Level 8.9 mg/dl Magnesium Level 1.8 mg/dl Total Bilirubin 0.6 mg/dl Direct Bilirubin 0.2 mg/dl Aspartate Amino Transf (AST/SGOT) 15 U/L Alanine Aminotransferase (ALT/SGPT) 22 U/L Alkaline Phosphatase 69 U/L Total Creatine Kinase 24 U/L 17 U/L Creatine Kinase MB 1.3 ng/ml 1.4 ng/ml Creatine Kinase MB Ratio 5.4 8.2 Troponin I 0.062 ng/ml 0.048 ng/ml Total Protein 6.6 gm/dl Albumin 3.1 gm/dl Bedside Troponin I 0.050 ng/ml Test 04/18/17 11:41 (Luz Harris CRNP) Assessment and Plan Ms. Lane is an 87 year old woman here for sob following recent HCAP for which she was discharged from [facility] 04/15. She has a pmhx including CAD, COPD, CHF, Aortic stenosis s/p TAVR, Afib, HTN, Pulmonary HTN. Elevated troponin - trending back down, peaked at .062 - Echo showed slightly worse periprosthetic regurgitation - Consult cardiology Dyspnea without hypoxia following recent HCAP diagnosis - unsure why she is so sob at this point, chest x ray has a small left effusion but is otherwise clear and this is correlated with auscultation, sats have been mid 90s on her baseline 4L NC - D-dimer pending - continue levaquin and doxycycline Chronic Diastolic CHF/A.fib/CAD/Hx TAVR - Echo as above - Continue home doses of ASA, Eliquis, Metoprolol, Digoxin, Lasix, prn nitro. - Patient's weight is down 3 kg from last admission COPD - Duonebs ordered. - Continue chronic 10 mg Prednisone daily Diarrhea - outpatient stool cultures negative - C. Diff pending Hypothyroidism - Continue Levothyroxine Anxiety - Continue Alprazolam DVT prophylaxis - SCDs, TEDs, Eliquis PT and OT ordered Level 5 DNR (Luz Harris CRNP) APARTMENT MAINTENANCE MANAGER Physician Supervision Note: I interviewed and examined the patient. Discussed with Luz Harris APARTMENT MAINTENANCE MANAGER and agree with findings and plan as documented in the note. Any exceptions or clarifications are listed here: None Patient arrives shortly after being discharged with complaints of feeling short of breath. She was discharged with a diagnosis of pneumonia and placed on outpatient oral Levaquin and doxycycline. The patient states that she remains nauseated and short of breath and did call her outpatient providers stating that she was afraid to be home by herself. He recommended she return to the ER at which time she was found have a mildly elevated troponin to 0.062. She is recommended for intake. The patient subsequent states she feels about the same when she did over the last few months having mild nausea exertional dyspnea not having any focal chest pain or pressure. Her vital signs are reviewed and stable Her cardiac exam is regular with a loud murmur likely from her recent TAVR. Her lungs are relatively clear with good air movement she has no cough or extremity without edema or cords Likely multi factoral shortness of breath. We'll involve her long-standing pulmonary physician to assist in improving her subjective dyspnea. We'll trend her cardiac enzymes and we may involve cardiology for final opinion however I do not feel she is done acute coronary syndrome. Continuing her home medicines and evaluate further signs and symptoms to be so she with her dyspnea and nausea Documented By: Ino Henderson (Ino Henderson M.D.)
[2017-04-18 13:27] LABS: CKMB/CK RATIO 4.7 (0-3.0)
--- NOTE | 2017-04-18 15:12 | PULMONARY CONSULTATION ---
DATE OF CONSULTATION: 04/18/2017 TIME: 1:05 p.m. REPORT OF CONSULTATION: The patient was seen in room 283, bed 2. She is an 87-year-old female with a chief complaint of shortness of breath. She has a longstanding history of fairly severe COPD. Emphysema has shown up on her CAT scan. She has only had breathing problems for a few years. She had severe critical aortic stenosis. She subsequently had a TAVR procedure in [place] in the spring. Unfortunately, that surgery did not improve her breathing. She was hospitalized from March 16 to March 22 with respiratory failure. She returned on April 14 until April 16. She had an infiltrate in the left lower lung field along with an enlarging effusion. The thought was that she may have a hospital-associated pneumonia. She actually demanded to be discharged on April 16. She did go home later in the day. On the morning of the , I received a call at approximately 11:00 a.m. that she was very short of breath. I called her and spoke to her on the phone on the . I suggested to her that she come back to the Emergency Room. She was refusing. She states that Dr. Hurtado's office had told her the same. Ultimately, she did go to see Dr. Hurtado yesterday afternoon and she again suggested she go back to the Emergency Room. The patient called my office in the late afternoon to tell us that she was going to the ER because she was short of breath and she was fearful of staying alone. This has been an ongoing problem for her. At the present time, she feels fairly comfortable. As part of her ER evaluation, troponins were done and they were mildly elevated. She has had serial troponins done, which have remained mild and then they were on a downward trend. The patient admits to a cough. She states she is bringing up a lot of phlegm. I do not know if this has been verified by nurses. I do believe the patient is a totally reliable historian. She does have a lot of paranoia. For instance, she is convinced she is in a room with a poor view outside because someone in the hospital does not like her. She is convinced this keeps happening over and over. She was very upset at the time of her recent hospital stay because they wanted to move her room. This was being done because they apparently needed a bed in the monitored section where she no longer needed monitoring. She refused to move apparently at that time. The patient does relate her breathing problems to what she believes was methane gas exposure in her apartment. This was a couple of years ago. PAST PULMONARY HISTORY: In addition to COPD and the above-mentioned pneumonia, she was found to have a right apical nodular mass measuring 1.2 cm. This was found recently. She had a sleep study in 2009 that showed moderate sleep apnea with an apnea/hypopnea index of 24.5, but she did not tolerate CPAP. PAST SURGICAL HISTORY: 1. Cataract surgery. 2. Cystoscopy. PAST MEDICAL HISTORY: 1. Prior CVA. 2. Fractured right humerus. 3. Concussion. 4. Skin cancer. 5. Eustachian tube dysfunction. 6. Mild coronary artery disease. 7. Aortic valvular disease as noted. FAMILY HISTORY: Positive for coronary artery disease, cancer, and stroke. SOCIAL HISTORY: Tobacco none since 1969, previously 1 pack per day for 20 years. ETOH -- None. ALLERGIES: LISTED ALLERGIES TO NUMEROUS MEDICINES INCLUDING ALDACTONE, AMLODIPINE, ATENOLOL, CLONIDINE, DIOVAN, CONTRAST DYE, LIDODERM PATCH, LOSARTAN, NIFEDIPINE, PENICILLIN, AND TERAZOSIN. It is suspected that many of these may be side effects rather than true allergies. PHYSICAL EXAMINATION: GENERAL: The patient is an 87-year-old female who was cooperative and alert. She did not appear in any distress. Her BMI is 21.6. VITAL SIGNS: Temperature is 36.9. HEENT: The patient states that she is losing her hair due to prednisone. There was no overt alopecia. Nares have some mucous bilaterally. Mouth exam was unremarkable. NECK: Palpation of the neck reveals no lymph nodes. HEART: The cardiac rate was 75 per minute. The rhythm was irregular. Blood pressure was 110/66. LUNGS: Auscultation of the lung luis revealed no wheezes, rales or rhonchi. The breath sounds are decreased in intensity. Respiratory rate was 18. Saturations were 96% on 4 liters. ABDOMEN: Soft and nontender. Bowel sounds were present. EXTREMITIES: Showed no cyanosis, clubbing or edema. IMAGING STUDIES: The patient's chest x-ray again shows a small left pleural effusion. There may be a slight amount of residual infiltrate, but not very much. The effusion is much more prominent than the infiltrate in my opinion. LABORATORY DATA: White count is 12.21. Hemoglobin 12.9. Platelets 216,000. Coags were normal. Troponin was 0.062. Repeat was 0.050. Another repeat was 0.048. Echocardiogram done today showed left ventricular systolic function was normal. There was moderate concentric left ventricular hypertrophy. Left atrium was mildly dilated. There is a bioprosthetic aortic valve in place. There is [id number] periprosthetic regurgitation. There is moderate mitral regurgitation. The right ventricular systolic pressure is elevated at 30-40. Compared with the prior study done on 10/24/2016, the degree of periprosthetic regurg appeared slightly worse. IMPRESSION: 1. Chronic obstructive pulmonary disease -- severe -- based upon pulmonary function test in the past. 2. Recent pneumonia, left lower lung field with improvement. 3. Left pleural effusion. 4. Right upper lobe nodule measuring 1.2 cm. 5. Status post transcatheter aortic valve replacement. 6. Diastolic congestive heart failure. 7. Pulmonary hypertension. 8. Atrial fibrillation. COMMENTS AND RECOMMENDATIONS: The patient is comfortable at present. This is typically how she has been in the hospital. She was stable when I saw her 2 days ago. I believe she has significant end-stage lung disease. She also has significant cardiac problems. Complicating all this is that I do not feel she can actually take care of herself at home. She does have aides to assist. I believe the patient needs assisted living. I have told her this numerous times, but she would not even consider this. She is on levofloxacin and I have no objection to this. Her prednisone has been maintained at 10 mg. She does not sound like she needs more. I do not see any significant wheezing or distress. She should stay on her nebulizer treatments. I have just been told that she has an elevated D-dimer. However, she has a contrast allergy. She also has been on Eliquis at home. Thus, in light of that, I think the risk of pulmonary embolic disease is quite low. Suggest doing venous dopplers of both lower extremities. We will follow this patient with you. JOSELINE
--- NOTE | 2017-04-18 16:14 | DIAGNOSTIC IMAGING REPORT ---
VENOUS DOPPLER LWR EXT BILA HISTORY: Pain. Edema. elevated d-dimer COMPARISON STUDY: 03/17/2017 FINDINGS: There is normal compressibility, flow, and augmentation within the bilateral lower extremity deep venous systems. IMPRESSION: No DVT within the right or left lower extremity. No change from the prior study. The above report was generated using voice recognition software. It may contain grammatical, syntax or spelling errors. Electronically signed by: Fred Metzger M.D. 04/18/2017 4:13 PM Dictated Date/Time: 04/18/2017 4:12 PM
[2017-04-18] MEDS: DIGOXIN 0.125 MG TAB PO SCH (16:31)
[2017-04-18] MEDS: DOCUSATE SODIUM 100 MG CAP PO PRN (18:02)
[2017-04-18] MEDS: LATANOPROST 0.005% OP SOLN 2.5 ML BTL OPB SCH (20:24)
[2017-04-18] MEDS: TRAVOPROST Z 0.004% OPH SOLN 2.5 ML BTL OP SCH (20:24)
[2017-04-19] VITALS (11 sets, daily range): BP systolic 118–162; BP diastolic 63–92; PULSE 72–87; TEMP 36–36.5; O2SAT 91–99
[2017-04-19] MEDS: IPRATROPIUM BROMIDE NEB SOLN 0.02% 2.5 ML VIAL INH SCH ×4 (03:00→19:09)
[2017-04-19] MEDS: LEVALBUTEROL 1.25MG/0.5ML NEB INH SCH ×4 (03:00→19:09)
[2017-04-19] MEDS: LEVOTHYROXINE 75 MCG TAB PO SCH (06:38)
[2017-04-19] MEDS: SUCRALFATE 1 GM TAB PO SCH ×5 (08:00→20:10)
[2017-04-19] MEDS: CEROVITE ADV FORMULA TAB PO SCH (08:32)
[2017-04-19] MEDS: METOPROLOL TARTRATE 25 MG TAB PO SCH ×2 (08:32→21:09)
[2017-04-19] MEDS: APIXABAN 2.5 MG TAB PO SCH ×2 (08:33→20:11)
[2017-04-19] MEDS: FERROUS SULFATE 325 MG TAB PO SCH (08:33)
[2017-04-19] MEDS: ASPIRIN 81 MG ECTAB PO SCH (08:33)
[2017-04-19] MEDS: POTASSIUM CHLORIDE 20 MEQ TABCR PO SCH ×2 (08:34→20:12)
[2017-04-19] MEDS: DILTIAZEM HCL 180 MG CAPCR PO SCH (08:34)
[2017-04-19] MEDS: NYSTATIN OINT 15 GM TUBE EXT SCH ×2 (08:34→20:09)
[2017-04-19] MEDS: DOXYCYCLINE HYCLATE 100 MG CAP PO SCH ×2 (08:34→20:12)
[2017-04-19] MEDS: FUROSEMIDE 40 MG TAB PO SCH (08:35)
[2017-04-19] MEDS: DOCUSATE SODIUM 100 MG CAP PO PRN (10:10)
[2017-04-19] MEDS ORDERED: SODIUM CHLORIDE 0.65% NA SOLN 45 ML (OCEAN) ONE (11:42)
[2017-04-19] MEDS ORDERED: SODIUM CHLORIDE 0.65% NA SOLN 45 ML (OCEAN) PRN (11:45)
[2017-04-19] MEDS: DOCUSATE SODIUM 100 MG CAP PO SCH ×2 (14:00→19:02)
--- NOTE | 2017-04-19 14:06 | Hospitalist Progress Note ---
Hospitalist Progress Note Date of Service Apr 19, 2017. (Luz Harris CRNP) Subjective Pt evaluation today including: conversation w/ patient, physical exam, chart review, lab review, review of inpatient medication list Voiding: no voiding problems Ms. Lane continues to feel very sob, coughing productive of thick yellow sputum. ROS Constitutional: no chills, aches, sweats or fever Respiratory: see HPI Cardiac: no chest pain, palpitations, edema, orthopnea or lightheadedness GI: no abdominal pain, nausea, vomiting, diarrhea or constipation : no dysuria or hesitancy Extremities: no joint pain or weakness Skin: no rash All Other Systems: Reviewed and Negative (Luz Harris CRNP) Objective Vital Signs Date Time Temp Pulse Resp B/P (MAP) Pulse Ox O2 Delivery O2 Flow Rate FiO2 04/19/17 12:00 Nasal Cannula 4.0 04/19/17 11:57 36.4 79 20 118/63 (81) 96 Nasal Cannula 4.0 04/19/17 11:37 98 04/19/17 08:00 Nasal Cannula 4.0 04/19/17 07:59 36.3 87 16 135/79 (97) 97 Nasal Cannula 4.0 04/19/17 07:16 76 16 98 Nasal Cannula 4.0 04/19/17 04:00 36.0 82 17 136/82 (100) 98 Nasal Cannula 4.0 04/19/17 04:00 Nasal Cannula 4.0 04/19/17 03:00 76 16 99 Nasal Cannula 4.0 04/19/17 00:00 Nasal Cannula 4.0 04/18/17 23:13 36.4 83 20 149/83 (105) 100 2.0 04/18/17 20:00 Nasal Cannula 4.0 04/18/17 19:44 36.5 98 20 134/64 (87) 96 4.0 04/18/17 19:24 85 16 98 Nasal Cannula 4.0 04/18/17 16:31 78 04/18/17 16:00 Nasal Cannula 4.0 04/18/17 15:12 36.7 78 18 126/70 (88) 94 Nasal Cannula 4.0 04/18/17 14:38 88 16 94 Nasal Cannula 4.0 (Luz Harris CRNP) Physical Exam Notes: Exam General: no distress Eyes: normal inspection, PERLL Respiratory: chest non tender, diminished breath sounds bilaterally, dyspnea when talking, no accessory muscle use Cardiac: regular rate and rhythm, no rub or gallop, systolic murmur III/, no edema, no jvd GI/: active bowel sounds, no abd pain or tenderness, soft, non distended Extremities: normal range of motion, normal strength, non tender Neuro/Psych: alert and oriented x 3, normal mood and affect Skin: normal color, dry (Luz Harris ., CARLOS) Assessment and Plan Ms. Lane is an 87 year old woman here for sob following recent HCAP for which she was discharged from [facility] 04/15. She has a pmhx including CAD, COPD, CHF, Aortic stenosis s/p TAVR, Afib, HTN, Pulmonary HTN. Elevated troponin - trending back down, peaked at .062 - Echo showed slightly worse periprosthetic regurgitation - Consult cardiology Dyspnea without hypoxia following recent HCAP diagnosis - D-dimer elevated - lower extremity per pulm rec was negative, hold off on CT for now - may need one if she is not improving tomorrow. - continue levaquin and doxycycline Chronic Diastolic CHF/A.fib/CAD/Hx TAVR - Echo as above - Continue home doses of ASA, Eliquis, Metoprolol, Digoxin, Lasix, prn nitro. - small effusions on cxr, but does not appear to be fluid overloaded COPD - Duonebs ordered. - Continue chronic 10 mg Prednisone daily - consulted palliative care and pulmonology Diarrhea - outpatient stool cultures negative - C. Diff pending - patient has not had bowel movement since then Hypothyroidism - Continue Levothyroxine Anxiety - Continue Alprazolam DVT prophylaxis - SCDs, TEDs, Eliquis PT and OT Level 5 DNR (Luz Harris CRNP) Attending Attestation: Pt seen/examined, chart reviewed, care plan d/w CARLOS Harris. I agree w/ the hernandez components of her documentation. Pt wanting to debate with me whether her symptoms are cardiac or pulmonary in origin. She spent much of the discussion wanting to place blame "for her heart problems. " She continues with cough, dyspnea, and sputum production. Appetite is fair. VSS no fever gen - NAD neck - no JVD sitting upright at 90 degrees heart - irregular, s1, s2, 2/6 systolic murmur RUSB lungs - CTA b/l, no adventitious sounds today abd - soft ext - no edema A/P: 1. b/l pneumonia, thought gram negative in etiology - continue current PO abx. 2. chronic diastolic CHF - compensated. 3. pulmonary HTN 4. chronic hypoxic resp failure on home O2 - stable 5. COPD - no exacerbation; on chronic prednisone therapy 10mg daily 6. severe s/p TAVR - echo results noted 7. a. fib - rates controlled, on eliquis for anticoagulation, continue AV robinson agents PT, OT have cleared for home await palliative care consult Janes Lopez MD (Janes Lopez MD)
[2017-04-19] MEDS: DIGOXIN 0.125 MG TAB PO SCH (15:48)
--- NOTE | 2017-04-19 16:01 | Palliative Care Progress Note ---
Palliative Care Progress Note Date of Service Apr 19, 2017. Subjective Consult received. Attempted to see patient today. She was with [employer] research member being interviewed. Will try again.
--- NOTE | 2017-04-19 17:42 | PULMONARY PROGRESS NOTE ---
DATE: 04/19/2017 TIME: 05:15 p.m. SUBJECTIVE: The patient is having a pretty good day. She did collect sputum for me in a cup, so I could see it. It actually is green and the color of pea soup. We are going to obtain a specimen of that. The mucus that she has in the cup has been there for too long a period of time. She feels her breathing is a little better. She ambulated around the halls without much difficulty today. OBJECTIVE: GENERAL: The patient is comfortable at rest. She has been afebrile. ENT: Unremarkable. VITAL SIGNS: Heart rate was 78 per minute. The rhythm is irregular. Blood pressure 154/64. LUNGS: Lung luis are revealing diminished breath sounds, but no active wheezing. Respiratory rate is 20. Oxygen saturation was 98% on 4 liters. EXTREMITIES: Showed no significant edema. The patient had a venous Doppler yesterday that was negative. IMPRESSIONS: 1. Chronic obstructive pulmonary disease with exacerbation. 2. Recent left lower lobe pneumonia. 3. Left pleural effusion. 4. Right upper lobe nodule, 1.2 cm -- malignancy not excluded. 5. Status post transcatheter aortic valve replacement. 6. Diastolic congestive heart failure. 7. Pulmonary hypertension. 8. Atrial fibrillation. COMMENTS AND RECOMMENDATIONS: The patient is clinically improved. I am wondering, however, if she may have some resistant sputum. I am going to order a sputum Gram stain and culture. She is currently on levofloxacin. She is also on doxycycline. It may be that these agents are resistant. We will get the culture and Gram stain and see if anything shows differently that might require a change in therapy. I must admit that I was impressed by how much discolored mucus she had produced today.
[2017-04-19] MEDS: TRAVOPROST Z 0.004% OPH SOLN 2.5 ML BTL OP SCH (20:10)
[2017-04-19] MEDS: LATANOPROST 0.005% OP SOLN 2.5 ML BTL OPB SCH ×2 (20:10→21:00)
[2017-04-20] MEDS: IPRATROPIUM BROMIDE NEB SOLN 0.02% 2.5 ML VIAL INH SCH ×4 (01:39→19:20)
[2017-04-20] MEDS: LEVALBUTEROL 1.25MG/0.5ML NEB INH SCH ×4 (01:39→19:20)
[2017-04-20 01:43] VITALS: PULSE 78; O2SAT 99
[2017-04-20 04:48] VITALS: BP 159/72; PULSE 76; TEMP 36.6; O2SAT 95
[2017-04-20] MEDS: LEVOTHYROXINE 75 MCG TAB PO SCH (05:23)
[2017-04-20 07:25] VITALS: PULSE 62; O2SAT 100
[2017-04-20 08:49] VITALS: BP 139/73; PULSE 86; TEMP 36.4; O2SAT 97
[2017-04-20] MEDS: DOCUSATE SODIUM 100 MG CAP PO SCH ×3 (09:00→20:13)
[2017-04-20] MEDS: NYSTATIN OINT 15 GM TUBE EXT SCH ×2 (09:00→20:12)
[2017-04-20] MEDS: DILTIAZEM HCL 180 MG CAPCR PO SCH (09:06)
[2017-04-20] MEDS: APIXABAN 2.5 MG TAB PO SCH ×2 (09:07→20:10)
[2017-04-20] MEDS: ASPIRIN 81 MG ECTAB PO SCH (09:08)
[2017-04-20] MEDS: FUROSEMIDE 40 MG TAB PO SCH (09:09)
[2017-04-20] MEDS: CEROVITE ADV FORMULA TAB PO SCH (09:10)
[2017-04-20] MEDS: METOPROLOL TARTRATE 25 MG TAB PO SCH ×2 (09:10→20:12)
[2017-04-20] MEDS: DOXYCYCLINE HYCLATE 100 MG CAP PO SCH ×2 (09:11→20:11)
[2017-04-20] MEDS: LEVOFLOXACIN 750 MG TAB PO SCH (09:13)
[2017-04-20 11:13] LABS: HEMATOCRIT 37.5 % (37-47); MEAN CORPUSCULAR HEMOGLOBIN 31.3 pg (25-34); MEAN CORPUSCULAR HGB CONC 33.3 g/dl (32-36); MEAN PLATELET VOLUME 9.9 fL (7.4-10.4); PLATELET COUNT 235 K/uL (130-400); RED BLOOD COUNT 3.99 M/uL (4.2-5.4); WHITE BLOOD COUNT 12.52 K/uL (4.8-10.8)
[2017-04-20 11:33] LABS: BUN/CREATININE RATIO 33.2 (10-20); CALCIUM 8.8 mg/dl (8.5-10.1); CREATININE 0.68 mg/dl (0.60-1.20); POTASSIUM 3.9 mmol/L (3.5-5.1)
--- NOTE | 2017-04-20 11:37 | Palliative Care Consultation ---
Consultation Date of Consultation: Apr 20, 2017. Requesting Physician: CARLOS Hauser Attending Physician: CARLOS Hauser; Dr. Lopez Reason for Consultation: Goals of care History of Present Illness This 87 year old female patient with PMH severe aortic stenosis s/p TAVR in September 2016, severe COPD, oxygen dependence, Afib, CAD, and others listed below, presented to the hospital three days ago with c/o increased SOB, cough, sputum and had elevated troponin. She was just in hospital for HCAP, discharged the day before she came back to the hospital. CXR shows bilateral effusions and LLL infiltrate. Patient continues to produce green sputum which was sent to lab today for potential antibiotic resistance. She currently is on PO Levaquin and doxycycline. Patient's SOB persists, but she actually does feel better today. On 4LNC at home, but she states she did not feel it was actually 4LNC and blames a faulty machine. Patient remains on 4LNC here and feels better. Patient has had multiple readmissions this year and expresses frustration with coming to the hospital. She has adamantly refused transfer to SNF from her independent living senior apartment. She has caregivers through the state waiver program at least 20 hours a week, but no other home services. Palliative care is consulted now to discuss goals of care. I met with patient in room 283-[address] Ochoa. Patient is awake, alert and oriented x4. She still c/o SOB but states it is better than when she came in. We discussed goals of care. Patient does not want to be in the hospital. She wants to be at her apartment, be comfortable, and "live her life the way she wants to live it." Patient understands that her medical problems cannot be cured, but she spends a lot of time blaming healthcare providers for her issues. She recently tried home hospice but says that they "screwed everything up" with her pills and left her with a mess. For this reason, she is resistant to let hospice come into the home. I discussed with her about adding some medications for comfort, but not for cure. She is willing to try this. Again, I tried to explain hospice and their purpose, as I think that is what the patient would truly benefit from. As before, she was resistant but not totally closed to the idea if we can find a different agency. Past Medical/Surgical History Medical History: Anxiety Asthma Atrial fibrillation with RVR Back pain Hypertension Bronchitis Cataract Aortic stenosis s/p TAVR September 2016 CHF COPD Pulmonary htn Fall Humeral head fracture Hypoxia Kidney disease Melanoma Neck pain Pneumonia Social History Smoking Status: Former Smoker History of Alcohol Use: No Drug Use: none Marital Status: Housing Status: lives alone Occupation Status: retired Review of Systems Constitutional: No weakness ENT: No trouble swallowing Respiratory: + cough, + sputum (thick yellow/green), + wheezing, + dyspnea at rest Cardiac: No chest pain, No edema Abdomen: No pain, No nausea, No vomiting Female : No problem reported Psychiatric: + anxiety Allergies Coded Allergies: Clonidine (Verified Allergy, Mild, SHORTNESS OF BREATH, 04/17/17) Iodinated Diagnostic Agents (Verified Allergy, Unknown, "IT JUST AFFECTS ME AND I CAN'T EXPLAIN IT", 04/17/17) Latex1 -Allergic Contact Dermititis (Verified Allergy, Unknown, RASH, ) Penicillins (Verified Allergy, Unknown, UNKNOWN, 04/17/17) Sulfa Antibiotics (Verified Allergy, Unknown, "SWELLING IN MOUTH AND DRIED OUT", 04/17/17) Medications Current Inpatient Medications Medications (Trade) Dose Ordered Sig/Yared Route Start Time Stop Time Status Last Admin Dose Admin Acetaminophen (Tylenol Tab) 650 mg Q4H PRN PO 04/17/17 21:30 05/17/17 21:29 Al Hydrox/Mg Hydrox/Simethicone (Maalox Max Susp) 15 ml Q4H PRN PO 04/17/17 21:30 05/17/17 21:29 Magnesium Hydroxide (Milk Of Magnesia Susp) 30 ml Q12H PRN PO 04/17/17 21:30 05/17/17 21:29 Ondansetron HCl (Zofran Inj) 4 mg Q6H PRN IV 04/17/17 21:30 05/17/17 21:29 Nitroglycerin (Nitrostat Tab) 0.4 mg UD PRN SL 04/17/17 21:30 05/17/17 21:29 Polyethylene (Miralax Powder Packet) 17 gm DAILY PRN PO 04/17/17 21:30 05/17/17 21:29 Alprazolam (Xanax Tab) 0.5 mg Q12 PRN PO 04/17/17 21:30 05/17/17 21:29 04/18/17 20:26 0.5 MG Apixaban (Eliquis Tab) 2.5 mg BID PO 04/18/17 09:00 05/18/17 08:59 04/20/17 09:07 2.5 MG Aspirin (Ecotrin Tab) 81 mg DAILY PO 04/18/17 09:00 05/18/17 08:59 04/20/17 09:08 81 MG Digoxin (Lanoxin Tab) 0.125 mg DAILY@16 PO 04/18/17 16:00 05/18/17 15:59 04/19/17 15:48 0.125 MG Doxycycline Hyclate (Vibramycin Cap) 100 mg BID PO 04/18/17 09:00 04/21/17 08:59 04/20/17 09:11 100 MG Ergocalciferol (Vitamin D Cap) 50,000 interunit We@0900 PO 04/18/17 09:00 05/18/17 08:59 04/18/17 07:55 50,000 INTERUNIT Latanoprost (Xalatan Oph Soln) 1 drops HS OPB 04/18/17 21:00 05/18/17 20:59 04/18/17 20:24 1 DROPS Levofloxacin (Levaquin Tab) 750 mg Q2D@1100 PO 04/18/17 11:00 04/20/17 11:01 04/20/17 09:13 750 MG Levothyroxine Sodium (Synthroid Tab) 75 mcg DAILYBB PO 04/18/17 06:30 05/18/17 06:59 04/20/17 05:23 75 MCG Metoprolol Tartrate (Lopressor Tab) 12.5 mg BID PO 04/18/17 09:00 05/18/17 08:59 04/20/17 09:10 12.5 MG Prednisone (PredniSONE TAB) 10 mg DAILY PO 04/18/17 09:00 05/18/17 08:59 04/20/17 09:10 10 MG Travoprost (Travatan Z) 1 drops HS OP 04/18/17 21:00 05/18/17 20:59 04/19/17 20:10 1 DROPS Diltiazem HCl (Cardizem Cd Cap) 360 mg DAILY PO 04/18/17 09:00 05/18/17 08:59 04/20/17 09:06 360 MG Ferrous Sulfate (Feosol Tab) 325 mg Q2D@0900 PO 04/19/17 09:00 05/19/17 08:59 04/19/17 08:33 325 MG Miscellaneous Information (Order Awaiting Action) 1 ea QS N/A 04/18/17 00:00 05/18/17 00:00 Multivitamins/ Minerals (Multivitamin W/ Minerals Tab) 1 tab DAILY PO 04/18/17 09:00 05/18/17 08:59 04/20/17 09:10 1 TAB Ipratropium [place] (Atrovent 0.02% 0.5MG/2.5ML Neb) 0.5 mg Q6R INH 04/18/17 03:00 05/18/17 02:59 04/20/17 07:15 0.5 MG Levalbuterol (Xopenex 1.25MG/ 0.5ML Neb) 1.25 mg Q6R INH 04/18/17 03:00 05/18/17 02:59 04/20/17 07:15 1.25 MG Furosemide (Lasix Tab) 40 mg QAM PO 04/19/17 09:00 05/19/17 08:59 04/20/17 09:09 40 MG Nystatin (Mycostatin Oint) 1 appln BID EXT 04/18/17 12:45 05/18/17 12:44 04/19/17 20:09 1 APPLN Sodium Chloride ([place] Nasal Mobile) 1 sprays PRN PRN NA 04/19/17 11:45 05/19/17 11:44 Docusate Sodium (coLACE CAP) 100 mg TID PO 04/19/17 14:00 05/19/17 13:59 Potassium Chloride (Klor-Con Pwd) 20 meq BID PO 04/20/17 09:45 05/18/17 08:59 Sucralfate (Carafate Susp) 1 gm TID PO 04/20/17 09:45 05/20/17 09:44 Physical Exam Date Time Temp Pulse Resp B/P (MAP) Pulse Ox O2 Delivery O2 Flow Rate FiO2 04/20/17 08:49 36.4 86 18 139/73 (95) 97 Nasal Cannula 4.0 04/20/17 08:45 Nasal Cannula 4.0 04/20/17 07:25 62 16 100 Nasal Cannula 4.0 04/20/17 04:48 36.6 76 18 159/72 (101) 95 Nasal Cannula 4.0 04/20/17 04:30 Nasal Cannula 4.0 04/20/17 01:43 78 16 99 Nasal Cannula 4.0 04/20/17 00:00 Nasal Cannula 4.0 04/19/17 23:34 36.5 79 19 162/84 (110) 99 Nasal Cannula 4.0 04/19/17 20:00 Nasal Cannula 4.0 04/19/17 19:33 36.1 82 18 145/92 (109) 99 Nasal Cannula 4.0 04/19/17 19:13 80 16 98 Nasal Cannula 4.0 04/19/17 16:03 Nasal Cannula 4.0 04/19/17 15:48 78 04/19/17 15:21 36.0 72 20 154/64 (94) 91 Room Air 04/19/17 14:33 82 16 98 Nasal Cannula 4.0 04/19/17 12:00 Nasal Cannula 4.0 04/19/17 11:57 36.4 79 20 118/63 (81) 96 Nasal Cannula 4.0 04/19/17 11:37 98 General Appearance: no apparent distress, + thin Eyes: PERRL ENT: hearing grossly normal Neck: supple, no JVD Respiratory: + wheezing (expiratory in bilateral bases) Cardiovascular: regular rate, rhythm, no edema, + systolic murmur, + normal peripheral pulses Abdomen: normal bowel sounds, non tender, soft Neurologic/Psychiatric: alert, normal mood/affect, oriented x 3 Skin: normal color Laboratory Results Last 24 Hours Test 04/20/17 08:30 Assessment & Plan Problem list: SOB/NEGRON Cough/sputum Healthcare associated pneumonia COPD- advanced, oxygen dependent Severe s/p TAVR September 2016 Chronic diastolic CHF/Afib/CAD Goals of care (Z51.5) Palliative care recs: discussed with patient and CARLOS Hauser; case folder updated. -Patient is level 5 DNR already. -Patient's goals are to be comfortable, be out of the hospital, and to stay in her apartment. -Would truly benefit from in-home hospice care. However, patient states she had a bad experience with hospice. Maybe she could try another agency? -Low dose Roxanol, 2.5-5mg, PO Q3h PRN pain or SOB would be beneficial for symptom relief at home. However, unsure if her PCP would be willing to continue ordering this if she is not on hospice. -Has Xanax 0.5mg PO Q12h PRN anxiety ordered. Has had a couple doses since admission. Would continue. -Patient has no living will or POLST form. I Will address this with her on Sunday if she is still here in hospital. Thank you kindly for this consult. I Will follow.
[2017-04-20] MEDS: POTASSIUM CHLORIDE PWD 20 MEQ PACK PO SCH ×2 (11:39→20:13)
[2017-04-20] MEDS: SUCRALFATE 1 GM/10 ML UDC PO SCH ×3 (11:39→20:10)
[2017-04-20 11:40] LABS: BASO % 0.6 %; BASO ABS # 0.07 K/uL (0-0.2); COMPLETE YES; HYPERSEGMENTED POLYS 1+; IG% 6.3 %; LYMPH % 14.5 %; LYMPH ABS # 1.81 K/uL (1.2-3.4); NEUT % 67.6 %
[2017-04-20] MEDS ORDERED: MoRPHine SULFATE 2.5 MG/0.125 ML UDP PO PRN (13:00)
[2017-04-20] MEDS ORDERED: SUCRALFATE 1 GM/10 ML UDC PO SCH (14:00)
[2017-04-20] MEDS: DIGOXIN 0.125 MG TAB PO SCH (15:10)
[2017-04-20 15:23] VITALS: BP 131/61; PULSE 65; TEMP 36.3; O2SAT 98
--- NOTE | 2017-04-20 15:29 | Hospitalist Progress Note ---
Hospitalist Progress Note Date of Service Apr 20, 2017. (Luz Harris .CARLOS) Subjective Pt evaluation today including: conversation w/ patient, physical exam, chart review, lab review, review of studies, review of inpatient medication list Voiding: no voiding problems Ms. Lane insists that something is very wrong with her and that her dyspnea is too profound to go home. She continues to saturate in the mid 90s on 4L, however when I entered the room she was ambulating without oxygen and had desatted to mid 80s. She was very troubled by how sob she became without oxygen and feels that it is a dramatic change from her baseline. She also complains about diarrhea. Reinforced hospice recommendation from palliative and that this may be a good option for keeping out of the hospital and in her home but she refuses to consider trying a different company for hospice because she had a bad experience with a nurse who was seeing her from hospice previously. She is also resistant to any kind of personal senior care. ROS Constitutional: no chills, aches, sweats or fever Respiratory: cough productive of puentes/yellow sputum, sob Cardiac: no chest pain, palpitations, edema, orthopnea or lightheadedness GI: no abdominal pain, nausea, vomiting, diarrhea or constipation : no dysuria or hesitancy Extremities: no joint pain or weakness Skin: no rash (Luz Harris .CARLOS) Objective Vital Signs Date Time Temp Pulse Resp B/P (MAP) Pulse Ox O2 Delivery O2 Flow Rate FiO2 04/20/17 08:49 36.4 86 18 139/73 (95) 97 Nasal Cannula 4.0 04/20/17 08:45 Nasal Cannula 4.0 04/20/17 07:25 62 16 100 Nasal Cannula 4.0 04/20/17 04:48 36.6 76 18 159/72 (101) 95 Nasal Cannula 4.0 04/20/17 04:30 Nasal Cannula 4.0 04/20/17 01:43 78 16 99 Nasal Cannula 4.0 04/20/17 00:00 Nasal Cannula 4.0 04/19/17 23:34 36.5 79 19 162/84 (110) 99 Nasal Cannula 4.0 04/19/17 20:00 Nasal Cannula 4.0 04/19/17 19:33 36.1 82 18 145/92 (109) 99 Nasal Cannula 4.0 04/19/17 19:13 80 16 98 Nasal Cannula 4.0 04/19/17 16:03 Nasal Cannula 4.0 04/19/17 15:48 78 04/19/17 15:21 36.0 72 20 154/64 (94) 91 Room Air (Luz Harris CRNP) Physical Exam Notes: General: no distress Eyes: normal inspection, PERLL Respiratory: chest non tender, clear to auscultation, normal breath sounds, no respiratory distress, no accessory muscle use Cardiac: regular rate and rhythm, no rub or gallop, no murmur, no edema, no jvd GI/: active bowel sounds, no abd pain or tenderness, soft, non distended Extremities: normal range of motion, normal strength, non tender Neuro/Psych: alert and oriented x 3, normal mood and affect Skin: normal color, dry (Luz Harris CRNP) Laboratory Results Last 24 Hours Test 04/20/17 10:54 White Blood Count 12.52 K/uL Red Blood Count 3.99 M/uL Hemoglobin 12.5 g/dL Hematocrit 37.5 % Mean Corpuscular Volume 94.0 fL Mean Corpuscular Hemoglobin 31.3 pg Mean Corpuscular Hemoglobin Concent 33.3 g/dl Platelet Count 235 K/uL Mean Platelet Volume 9.9 fL Neutrophils (%) (Auto) 67.6 % Lymphocytes (%) (Auto) 14.5 % Monocytes (%) (Auto) 10.0 % Eosinophils (%) (Auto) 1.0 % Basophils (%) (Auto) 0.6 % Neutrophils # (Auto) 8.47 K/uL Lymphocytes # (Auto) 1.81 K/uL Monocytes # (Auto) 1.25 K/uL Eosinophils # (Auto) 0.13 K/uL Basophils # (Auto) 0.07 K/uL RDW Standard Deviation 47.0 fL RDW Coefficient of Variation 13.7 % Immature Granulocyte % (Auto) 6.3 % Immature Granulocyte # (Auto) 0.79 K/uL Hypersegmented Polys 1+ Sodium Level 137 mmol/L Potassium Level 3.9 mmol/L Chloride Level 102 mmol/L Carbon Dioxide Level 31 mmol/L Anion Gap 4.0 mmol/L Blood Urea Nitrogen 23 mg/dl Creatinine 0.68 mg/dl Est Creatinine Clear Calc Drug Dose 44.8 ml/min Estimated GFR () 91.8 Estimated GFR (Non- 79.2 BUN/Creatinine Ratio 33.2 Random Glucose 94 mg/dl Calcium Level 8.8 mg/dl (Luz Harris ., CARLOS) Assessment and Plan Ms. Lane is an 87 year old woman here for sob following recent HCAP for which she was discharged from [facility] 04/15. She has a pmhx including CAD, COPD, CHF, Aortic stenosis s/p TAVR, Afib, HTN, Pulmonary HTN. Elevated troponin - trended back down, peaked at .062 - Echo showed slightly worse periprosthetic regurgitation - Consult cardiology - A.fib rate controlled on telemetry Dyspnea without hypoxia following recent HCAP diagnosis - D-dimer elevated - lower extremity per pulm rec was negative - continue levaquin and doxycycline - last day of abx therapy 04/21 for 7 days total treatment following last admission for PNA - continue 4L O2 - patient desats to mid 80s without oxygen - await further recs from pulm - CT chest Chronic Diastolic CHF/A.fib/CAD/Hx TAVR - Echo as above - Continue home doses of ASA, Eliquis, Metoprolol, Digoxin, Lasix, prn nitro. - small effusions on cxr, but does not appear to be fluid overloaded COPD - Duonebs ordered. - Continue chronic 10 mg Prednisone daily - consulted palliative care - Roxanol q3h per their recommendation and pulmonology Diarrhea - outpatient stool cultures negative - C. Diff negative - likely due to antibiotics Hypothyroidism - Continue Levothyroxine Anxiety - Continue Alprazolam DVT prophylaxis - SCDs, TEDs, Eliquis Transfer to med/surg PT and OT Level 5 DNR (Luz Harris .CARLOS) Attending Attestation: Pt seen/examined, chart reviewed, care plan d/w FED[employer] APPELLATE CLERKTAMI Harris. I agree w/ the hernandez components of her documentation. Pt argumentative today about multiple issues - glaucoma drops, disposition, medical diagnoses, etc. I did call and speak with her pharmacist at [facility] - did confirm she is ONLY ON TRAVATAN AT BEDTIME. I told patient the other glaucoma agent has been discontinued and that her pharmacist confirmed her proper med. Staff report no cough, no dyspnea, walking the hallways WITHOUT OXYGEN and with no visible dyspnea with walking. Tele - rate-controlled a. fib. VSS no fever sats wnl on NC O2 gen - nad neck - no JVD heart - irregular, s1, s2, 2/6 systolic murmur RUSB lungs - CTA b/l, fair airation abd - soft ext - no edema labs - BMP wnl A/P: 1. b/l pneumonia, treating for gram negative vs atypical. CT chest done today - no evidence of decompensated CHF. No evidence of large effusions. Pulmonary mass unchanged. b/l infiltrates c/w pneumonia. I reviewed ALL CT CHEST RESULTS with the patient. She is VERY stable on oral antibiotic therapy. Her pulmonary status is at baseline. Sputum cx pending; would be surprised if a pathogen at this point grew as we are at day #7 of abx. Will discuss care with Dr. Rucker in the am. 2. chronic diastolic CHF - compensated. 3. , s/p TAVR - recent echo reviewed. Stable valve function. likely home this weekend appreciate palliative care consultation Papa LOPEZ MD (Janes Lopez MD)
--- NOTE | 2017-04-20 15:55 | PULMONARY PROGRESS NOTE ---
DATE: 04/20/2017 DATE: 04/20/2017 TIME: 3:15 p.m. SUBJECTIVE: The patient is more short of breath today. She is blaming the prednisone today for this problem. I believe she is quite anxious. She reportedly walked today and did fairly well. When I first went into her room she was in the restroom. She was very short of breath. She was upset about the way her stools looked. She had urinated somewhat on the floor. I did get a nurse to help her. Her saturations at that time apparently were 79%. At the time of my follow-up evaluation 15 minutes later she seemed comfortable and her saturations were 93% with nasal cannula in place. OBJECTIVE: VITAL SIGNS: The patient looks more short of breath than she had been. She is afebrile. Heart rate is 86 per minute. The rhythm is irregular. Blood pressure 139/73. LUNGS: Lung luis revealed decreased breath sounds. Faint wheeze was heard. Her respiratory rate was 22 breaths per minute which is higher than it had been. The patient did expectorate some sputum in a cup this morning. I did not see it but it was sent to the lab and the results are still pending. Based upon yesterday's sputum that I saw I was concerned about the possibility of pseudomonas. LABORATORY DATA: White count today is 12.52, hemoglobin 12.5, platelets 235,000. Electrolytes show sodium 137, potassium 3.9, chloride 102, bicarbonate 31. The BUN was 23 with a creatinine of 0.68. IMPRESSIONS: 1. Chronic obstructive pulmonary disease with exacerbation. 2. Left pleural effusion. 3. Recent pneumonia. 4. Emphysema. 5. Right upper lobe nodule measuring 12 mm. 6. Diastolic congestive heart failure. 7. Pulmonary hypertension. 8. Status post transcatheter aortic valve replacement. COMMENTS AND RECOMMENDATIONS: The patient is very marginal. I tried to explain to her that the prednisone is not causing her problems now. I believe she has a respiratory tract infection, perhaps with resistant organisms based upon the appearance of her sputum yesterday. Unfortunately, the patient lives alone. I have talked to her at length including on the date of this exam my opinion that she needs assisted living. She refuses to consider this. I believe if we send her home currently she will be right back the next day just as she did after her last admission. If the Gram stain of her sputum shows a lot of gram negative rods I would certainly broadened her coverage. It appears that the levofloxacin was only ordered for 2 doses. I am not exactly certain why that was. We can address that tomorrow hopefully when her Gram stain at least is done. If she has pseudomonas or something similar we may need to actually return to an IV antibiotic. If the sputum appears benign, we will just need to carry on and try and get her out as soon as feasible. I asked her to consider even going for rehab and she refuses that as well.
--- NOTE | 2017-04-20 16:11 | DIAGNOSTIC IMAGING REPORT ---
CT SCAN OF THE CHEST WITHOUT IV CONTRAST CLINICAL HISTORY: Dyspnea. COMPARISON STUDY: Chest x-ray dated 04/09/2017. Chest CT scans dated 03/19/2017 and 02/05/2007. TECHNIQUE: CT scan of the thorax was performed from the thoracic inlet to the upper abdomen. Images are reviewed in the axial, sagittal, and coronal planes. IV contrast was not administered for this examination as per the referring clinician. A dose lowering technique was utilized adhering to the principles of ALARA. CT DOSE: 192.89 mGy.cm FINDINGS: Thyroid: Atrophic. Thoracic aorta: There is mild atherosclerotic calcification of the thoracic aorta, which is normal in caliber and demonstrates standard 3-vessel arch anatomy. Heart: The heart is enlarged and without pericardial effusion. There is evidence of aortic valve surgery. There is calcification of the mitral annulus. Lungs and pleural spaces: Evaluation of the lung parenchyma is degraded by respiratory motion artifact. Emphysematous change is noted. There is a small left pleural effusion with associated atelectasis no right pleural effusion is seen. The trachea and central airways are clear. There are scattered calcified granulomas. An irregular 12 mm nodule is again seen at the right apex on image #39. There are new nodular opacities in the left upper lobe seen on image #108, #97, and #36. These measure up to 11 mm. Mild peribronchial thickening is noted. Scattered groundglass opacities are seen in the right lower lobe. Mediastinum: There is no mediastinal lymphadenopathy. Lina: Not well assessed without IV contrast. Axillae: There is no axillary lymphadenopathy. Upper abdomen: There is a tiny hiatal hernia. Calcified splenic granulomas are noted. Skeletal structures: The skeletal structures are osteopenic. Degenerative change is seen throughout the thoracic spine. No lytic or blastic bony lesions are seen. IMPRESSION: 1. Cardiomegaly and emphysema. 2. There is a small left pleural effusion with associated atelectasis. This has modestly decreased in size from 03/19/2017. The right pleural effusion has resolved. 3. A 12 mm irregular nodule at the right apex is unchanged from 03/19/2017. While nonspecific, the lack of change is concerning and although this could be on an infectious/inflammatory basis neoplasm is not excluded. 4. There are new patchy/nodular opacities in the left upper lobe as well as patchy groundglass opacities in the right lower lobe. These are also nonspecific and likely on an infectious/inflammatory basis. Clinical correlation will be required. At a minimum, continued CT follow-up of these findings recommended. 5. Additional findings as above. Electronically signed by: Dejon Rodriguez M.D. 04/20/2017 4:10 PM Dictated Date/Time: 04/20/2017 3:59 PM
[2017-04-20 19:23] VITALS: PULSE 96; O2SAT 95
[2017-04-20] MEDS: TRAVOPROST Z 0.004% OPH SOLN 2.5 ML BTL OP SCH (20:15)
[2017-04-21] VITALS (8 sets, daily range): BP systolic 118–164; BP diastolic 57–84; PULSE 62–81; TEMP 36.3–36.7; O2SAT 94–99
[2017-04-21] MEDS: LEVALBUTEROL 1.25MG/0.5ML NEB INH SCH ×4 (01:40→19:42)
[2017-04-21] MEDS: IPRATROPIUM BROMIDE NEB SOLN 0.02% 2.5 ML VIAL INH SCH ×4 (01:40→19:42)
[2017-04-21] MEDS: LEVOTHYROXINE 75 MCG TAB PO SCH (06:17)
[2017-04-21] MEDS: CEROVITE ADV FORMULA TAB PO SCH (08:55)
[2017-04-21] MEDS: METOPROLOL TARTRATE 25 MG TAB PO SCH ×2 (08:57→20:33)
[2017-04-21] MEDS: FUROSEMIDE 40 MG TAB PO SCH (08:57)
[2017-04-21] MEDS: POTASSIUM CHLORIDE PWD 20 MEQ PACK PO SCH ×2 (08:57→20:32)
[2017-04-21] MEDS: SUCRALFATE 1 GM/10 ML UDC PO SCH ×3 (08:58→20:29)
[2017-04-21] MEDS: DILTIAZEM HCL 180 MG CAPCR PO SCH (08:58)
[2017-04-21] MEDS: FERROUS SULFATE 325 MG TAB PO SCH ×2 (08:58→09:00)
[2017-04-21] MEDS: NYSTATIN OINT 15 GM TUBE EXT SCH ×2 (08:59→21:00)
[2017-04-21] MEDS: APIXABAN 2.5 MG TAB PO SCH ×2 (08:59→20:33)
[2017-04-21] MEDS: DOCUSATE SODIUM 100 MG CAP PO SCH ×3 (08:59→20:33)
[2017-04-21] MEDS: ASPIRIN 81 MG ECTAB PO SCH (09:30)
--- NOTE | 2017-04-21 15:42 | PULMONARY PROGRESS NOTE ---
DATE: 04/21/2017 TIME: 3:10 p.m. SUBJECTIVE: The patient is feeling reasonably well. She ambulated today without too much problem. She is still coughing. She complains of increased nasal mucous. She is using some nasal spray, which is saline. Her mood was pretty good today. Dr. Lopez and I went in together to speak to her and examine her. OBJECTIVE: GENERAL: The patient was comfortable at rest. VITAL SIGNS: Temperature was 36.6. HEENT: Mouth exam was unremarkable. HEART: Heart rate was 80 per minute. It was irregular. Blood pressure 151/69. LUNGS: Lung luis revealed just a few rhonchi. When she coughs, one could hear some secretions moving. Saturation was 96% on 4 liters. EXTREMITIES: Showed no significant edema. IMAGING STUDIES: CAT scan of the chest was done yesterday without contrast. There again is a 12-mm nodule on the right apex. She has some other nodules on the left side that are somewhat new and likely represent inflammatory disease. There are 2 or 3 areas with a maximum of 11 mm. Emphysema was again noted as well as cardiomegaly. IMPRESSIONS: 1. Chronic obstructive pulmonary disease exacerbation -- improved. 2. Small left pleural effusion. 3. Right upper lobe nodule 12 mm. 4. Emphysema. 5. Recent pneumonia. 6. Status post transcatheter aortic valve replacement. 7. Diastolic congestive heart failure. 8. Pulmonary hypertension. COMMENTS AND RECOMMENDATIONS: The patient is improved. I again suggested to her that she go to assisted living, but she refuses. We are hoping to get her discharged on Sunday. Dr. Lopez agreed with all of the above. We are trying to make the transition to the patient home as convenient as possible for her. She will start searching out for rides to get home.
[2017-04-21] MEDS: DIGOXIN 0.125 MG TAB PO SCH (16:55)
[2017-04-21] MEDS: GUAIFENESIN 600 MG TABCR PO SCH ×2 (16:55→20:29)
[2017-04-21] MEDS: TRAVOPROST Z 0.004% OPH SOLN 2.5 ML BTL OP SCH (20:33)
--- NOTE | 2017-04-21 20:55 | Progress Note ---
Subjective Date of Service: Apr 21, 2017. Subjective Pt evaluation today including: conversation w/ patient, physical exam, chart review, conversation w/ enterprise resource planning consultant (pulmonary - Dr. Rucker) Pain: none voiced PO Intake: normal Voiding: no voiding problems no issues overnight reports nasal congestion and sinus congestion occasional slight blood from the nose cough continues with occasional sputum but "better" during the entire 20 minute visit she did not cough once still not willing to seek out assisted living "I'm going home to my apartment" Problem List Medical Problems: (1) Acute bronchitis Status: Acute (2) Allergic reaction Status: Acute (3) CHF exacerbation Status: Acute (4) Elevated troponin Status: Acute (5) Hypokalemia Status: Acute (6) Hyponatremia Status: Acute (7) Hypoxia Status: Acute (8) Hypoxia Status: Acute (9) Hypoxia Status: Chronic (10) Hypoxia Status: Acute (11) Pneumonia Status: Acute (12) Pulmonary edema Status: Acute (13) Rapid atrial fibrillation Status: Acute (14) Respiratory failure Status: Acute (15) Sepsis Status: Acute (16) SOB (shortness of breath) Status: Chronic (17) Weakness Status: Acute Review of Systems Constitutional: No fever, No chills Respiratory: No dyspnea at rest Cardiac: No chest pain, No orthopnea Abdomen: No pain Objective Vital Signs Date Time Temp Pulse Resp B/P (MAP) Pulse Ox O2 Delivery O2 Flow Rate FiO2 04/21/17 19:42 81 16 94 Nasal Cannula 4.0 04/21/17 16:55 72 04/21/17 16:34 Nasal Cannula 4.0 04/21/17 16:04 36.4 62 20 118/57 (77) 95 Nasal Cannula 4.0 04/21/17 14:24 80 16 96 Nasal Cannula 4.0 04/21/17 08:45 Nasal Cannula 4.0 04/21/17 08:22 36.6 79 20 151/69 (96) 96 4.0 04/21/17 07:00 76 16 98 Nasal Cannula 4.0 04/21/17 01:40 81 16 98 Nasal Cannula 4.0 04/21/17 00:05 36.7 76 18 164/84 (110) 99 Nasal Cannula 4.0 04/21/17 00:00 Nasal Cannula 4.0 Physical Exam General Appearance: no apparent distress, + pertinent finding (looks good today ) ENT: pharynx normal Neck: no JVD Respiratory/Chest: lungs clear, no respiratory distress, no accessory muscle use Cardiovascular: + pertinent finding (irregular, s1, s2, 2/6 systolic murmur heard RUSB/LUSB) Abdomen: normal bowel sounds, non tender, soft, no organomegaly Extremities: no pedal edema Neurologic/Psychiatric: alert, normal mood/affect, oriented x 3 Assessment and Plan 87yo female with: 1. b/l pneumonia, treating for gram negative vs atypical. Day #8 of antibiotic therapy. Last levaquin dose was yesterday; will reorder for tomorrow. CT chest yesterday with mild b/l pneumonia. No evidence of decompensated CHF. No evidence of large effusions. Pulmonary mass unchanged in the RUL. I reviewed ALL CT CHEST RESULTS with the patient yesterday and again today ( with Dr. Rucker's assistance today). She is VERY stable on oral antibiotic therapy. Her pulmonary status is at baseline. Sputum cx pending but good chance it will not grow a specific pathogen. 2. chronic diastolic CHF - compensated. 3. , s/p TAVR - recent echo reviewed. Stable valve function. 4. positive troponin - likely myocardial demand ischemia in setting of #1 above. 5. a. fib - rate controlled with CCB, BB, and digoxin. Cont eliquis for anticoagulation. 6. h/o CAD - no ischemic symptoms at this time. Mild CAD on heart cath 09/2016 only. 7. COPD - cont prednisone 10mg daily and nebs. Morphine elixir prn for air hunger/dyspnea. 8. chronic hypoxic resp failure 2nd to COPD & pulmonary HTN - stable on home O2 amount. 9. diarrhea - resolved. C diff neg. 10. Hypothyroidism - stable, TSH last month was wnl. Cont Levothyroxine 11. glaucoma - cont travatan drops HS. 12. DVT proph - eliquis 13. anxiety - xanax prn anticipate d/c home on Sunday AM cleared by PT, OT for home agree assisted living would be best option for patient but she is consistently refusing Discharge planning: home with home health
[2017-04-22] MEDS: LEVALBUTEROL 1.25MG/0.5ML NEB INH SCH ×4 (02:05→19:18)
[2017-04-22] MEDS: IPRATROPIUM BROMIDE NEB SOLN 0.02% 2.5 ML VIAL INH SCH ×4 (02:05→19:18)
[2017-04-22] MEDS: LEVOTHYROXINE 75 MCG TAB PO SCH (06:10)
[2017-04-22 06:42] LABS: HEMATOCRIT 34.6 % (37-47); MEAN CELL VOLUME 94.5 fL (80-100); MEAN CORPUSCULAR HEMOGLOBIN 30.9 pg (25-34); MEAN CORPUSCULAR HGB CONC 32.7 g/dl (32-36); MEAN PLATELET VOLUME 9.5 fL (7.4-10.4); PLATELET COUNT 200 K/uL (130-400); RED BLOOD COUNT 3.66 M/uL (4.2-5.4); WHITE BLOOD COUNT 12.96 K/uL (4.8-10.8)
[2017-04-22 07:01] VITALS: PULSE 82; O2SAT 97
[2017-04-22 07:26] LABS: BUN/CREATININE RATIO 30.4 (10-20); CALCIUM 8.7 mg/dl (8.5-10.1); CREATININE 0.73 mg/dl (0.60-1.20); POTASSIUM 3.9 mmol/L (3.5-5.1)
[2017-04-22 07:35] LABS: BASO % 0.6 %; BASO ABS # 0.08 K/uL (0-0.2); COMPLETE YES; EOS % 0.6 %; IG% 7.6 %; LYMPH % 19.1 %; LYMPH ABS # 2.48 K/uL (1.2-3.4); MONO % 9.8 %; NEUT % 62.3 %
[2017-04-22] MEDS: NYSTATIN OINT 15 GM TUBE EXT SCH (08:42)
[2017-04-22] MEDS: DOCUSATE SODIUM 100 MG CAP PO SCH ×2 (08:42→13:02)
[2017-04-22] MEDS: CEROVITE ADV FORMULA TAB PO SCH (08:43)
[2017-04-22] MEDS: SUCRALFATE 1 GM/10 ML UDC PO SCH ×3 (08:43→20:40)
[2017-04-22] MEDS: METOPROLOL TARTRATE 25 MG TAB PO SCH ×2 (08:43→20:41)
[2017-04-22] MEDS: FUROSEMIDE 40 MG TAB PO SCH (08:43)
[2017-04-22] MEDS: ASPIRIN 81 MG ECTAB PO SCH (08:43)
[2017-04-22] MEDS: APIXABAN 2.5 MG TAB PO SCH ×2 (08:44→20:40)
[2017-04-22] MEDS: GUAIFENESIN 600 MG TABCR PO SCH ×2 (08:44→20:41)
[2017-04-22] MEDS: DILTIAZEM HCL 180 MG CAPCR PO SCH (08:44)
[2017-04-22] MEDS: POTASSIUM CHLORIDE PWD 20 MEQ PACK PO SCH ×2 (08:44→20:39)
[2017-04-22 09:08] VITALS: BP 137/68; PULSE 80; TEMP 36.6; O2SAT 97
[2017-04-22] MEDS ORDERED: LEVOFLOXACIN 750 MG TAB PO SCH (11:00)
[2017-04-22] MEDS ORDERED: NURSING VERBAL MED ORDER ONE ×2 (13:15)
[2017-04-22] MEDS ORDERED: DOCUSATE SODIUM 100 MG CAP PO PRN (13:30)
[2017-04-22 14:22] VITALS: PULSE 82; O2SAT 97
--- NOTE | 2017-04-22 14:54 | PULMONARY PROGRESS NOTE ---
DATE: 04/22/2017 TIME: 2:30 p.m. SUBJECTIVE: The patient is still feeling pretty well. She states she walked for about 15 minutes in the hallway. She did not have too much dyspnea. She is still having a lot of nasal mucus. She has not had much sputum. The patient remains somewhat paranoid. She still believes that she has a room with no view because people are against her. OBJECTIVE: GENERAL: The patient appears comfortable. Dr. Lopez was with me when we both spoke with and examine the patient. VITAL SIGNS: Temperature is 36.6. EARS, NOSE, THROAT: Unremarkable. NECK: Veins were not distended. HEART: Heart rate was 80. It was irregular. Blood pressure 137/68. LUNGS: Lung luis remain clear. The breath sounds are decreased. Saturations were 97% on 4 liters. LABORATORY DATA: White count today is 12.96. Hemoglobin 11.3. Platelets 200,000. Electrolytes show sodium 140, potassium 3.9, chloride 102, bicarbonate 34. The BUN is 22 with a creatinine of 0.73. Sputum culture ultimately came back as normal chen. IMPRESSIONS: 1. Chronic obstructive pulmonary disease exacerbation - improved. 2. Small left effusion. 3. Right upper lobe nodule, 12 mm. 4. Emphysema. 5. Recent pneumonia. 6. Status post transcatheter aortic valve replacement. 7. Diastolic congestive heart failure. 8. Pulmonary hypertension. COMMENTS AND RECOMMENDATIONS: The patient is doing good. The plan is to discharge her tomorrow if she stays stable. I will see her back in the office in 1-2 weeks.
[2017-04-22] MEDS: DIGOXIN 0.125 MG TAB PO SCH (17:26)
[2017-04-22 19:18] VITALS: PULSE 91; O2SAT 95
[2017-04-22] MEDS: TRAVOPROST Z 0.004% OPH SOLN 2.5 ML BTL OP SCH (20:38)
[2017-04-22 20:48] VITALS: BP 134/80; PULSE 95; O2SAT 94
[2017-04-22 23:54] VITALS: BP 153/80; PULSE 78; TEMP 36.6; O2SAT 99
[2017-04-23] MEDS: IPRATROPIUM BROMIDE NEB SOLN 0.02% 2.5 ML VIAL INH SCH ×3 (02:08→14:48)
[2017-04-23] MEDS: LEVALBUTEROL 1.25MG/0.5ML NEB INH SCH ×3 (02:08→14:49)
--- NOTE | 2017-04-23 05:51 | Progress Note ---
Subjective Date of Service: late entry for visit Apr 22, 2017. Subjective Pt evaluation today including: conversation w/ patient, physical exam, chart review, lab review, conversation w/ independent beauty consultant (pulmonary) Pain: none PO Intake: normal Voiding: no voiding problems no issues overnight reports sinus drainage and that "things are opening up" walking the hallways without dyspnea no new complaints Problem List Medical Problems: (1) Acute bronchitis Status: Acute (2) Allergic reaction Status: Acute (3) CHF exacerbation Status: Acute (4) Elevated troponin Status: Acute (5) Hypokalemia Status: Acute (6) Hyponatremia Status: Acute (7) Hypoxia Status: Acute (8) Hypoxia Status: Acute (9) Hypoxia Status: Chronic (10) Hypoxia Status: Acute (11) Pneumonia Status: Acute (12) Pulmonary edema Status: Acute (13) Rapid atrial fibrillation Status: Acute (14) Respiratory failure Status: Acute (15) Sepsis Status: Acute (16) SOB (shortness of breath) Status: Chronic (17) Weakness Status: Acute Review of Systems Constitutional: No fever, No chills ENT: + nasal symptoms Respiratory: + cough, + sputum (minimal ), No dyspnea at rest, No hemoptysis Cardiac: No chest pain Objective Vital Signs Date Time Temp Pulse Resp B/P (MAP) Pulse Ox O2 Delivery O2 Flow Rate FiO2 04/23/17 00:00 Nasal Cannula 4.0 04/22/17 23:54 36.6 78 16 153/80 (104) 99 Nasal Cannula 4.0 04/22/17 20:48 95 18 134/80 (98) 94 Nasal Cannula 4.0 04/22/17 20:00 Nasal Cannula 4.0 04/22/17 19:18 91 16 95 Nasal Cannula 4.0 04/22/17 17:26 89 04/22/17 16:25 Nasal Cannula 4.0 04/22/17 09:08 36.6 80 16 137/68 (91) 97 Nasal Cannula 4.0 04/22/17 08:25 Nasal Cannula 4.0 04/22/17 07:01 82 16 97 Nasal Cannula 4.0 Physical Exam General Appearance: no apparent distress ENT: pharynx normal Neck: no JVD Respiratory/Chest: lungs clear, no respiratory distress, no accessory muscle use Cardiovascular: no gallop, + systolic murmur (2/6 RUSB, LUSB), + irregularly irregular Abdomen: normal bowel sounds, non tender, soft, no organomegaly Extremities: no pedal edema Neurologic/Psychiatric: alert, oriented x 3 Laboratory Results Last 24 Hours Test 04/22/17 06:11 White Blood Count 12.96 K/uL Red Blood Count 3.66 M/uL Hemoglobin 11.3 g/dL Hematocrit 34.6 % Mean Corpuscular Volume 94.5 fL Mean Corpuscular Hemoglobin 30.9 pg Mean Corpuscular Hemoglobin Concent 32.7 g/dl Platelet Count 200 K/uL Mean Platelet Volume 9.5 fL Neutrophils (%) (Auto) 62.3 % Lymphocytes (%) (Auto) 19.1 % Monocytes (%) (Auto) 9.8 % Eosinophils (%) (Auto) 0.6 % Basophils (%) (Auto) 0.6 % Neutrophils # (Auto) 8.07 K/uL Lymphocytes # (Auto) 2.48 K/uL Monocytes # (Auto) 1.27 K/uL Eosinophils # (Auto) 0.08 K/uL Basophils # (Auto) 0.08 K/uL RDW Standard Deviation 47.9 fL RDW Coefficient of Variation 13.9 % Immature Granulocyte % (Auto) 7.6 % Immature Granulocyte # (Auto) 0.98 K/uL Sodium Level 140 mmol/L Potassium Level 3.9 mmol/L Chloride Level 102 mmol/L Carbon Dioxide Level 34 mmol/L Anion Gap 4.0 mmol/L Blood Urea Nitrogen 22 mg/dl Creatinine 0.73 mg/dl Est Creatinine Clear Calc Drug Dose 41.7 ml/min Estimated GFR () 86.4 Estimated GFR (Non- 74.6 BUN/Creatinine Ratio 30.4 Random Glucose 81 mg/dl Calcium Level 8.7 mg/dl Assessment and Plan 87yo female with: 1. b/l pneumonia, treating for gram negative vs atypical. Day #[address] chest this admission with mild b/l pneumonia. No evidence of decompensated CHF. No evidence of large effusions. Pulmonary mass unchanged in the RUL. She is VERY stable on oral antibiotic therapy. Her pulmonary status is at baseline. Sputum cx pending but suspect will be negative. 2. chronic diastolic CHF - compensated. 3. , s/p TAVR - recent echo reviewed. Stable valve function. 4. positive troponin - likely myocardial demand ischemia in setting of #1 above. 5. a. fib - rate controlled with CCB, BB, and digoxin. Cont eliquis for anticoagulation. 6. h/o CAD - no ischemic symptoms at this time. Mild CAD on heart cath 09/2016 only. 7. COPD - cont prednisone 10mg daily and nebs. Morphine elixir prn for air hunger/dyspnea but doubt patient will take such at home. Dr. Rucker managing prednisone. 8. chronic hypoxic resp failure 2nd to COPD & pulmonary HTN - stable on home O2 amount. 9. diarrhea - resolved. C diff neg. 10. Hypothyroidism - stable, TSH last month was wnl. Cont Levothyroxine 11. glaucoma - cont travatan drops HS. 12. DVT proph - eliquis 13. anxiety - xanax prn anticipate d/c home in AM cleared by PT, OT for home agree assisted living would be best option for patient but she is consistently refusing Discharge planning: home with home health
[2017-04-23] MEDS: LEVOTHYROXINE 75 MCG TAB PO SCH (06:12)
[2017-04-23 07:50] VITALS: BP 170/81; PULSE 72; TEMP 35.6; O2SAT 99
[2017-04-23 07:52] VITALS: PULSE 72; O2SAT 98
[2017-04-23 08:00] VITALS: O2SAT 99
[2017-04-23] MEDS: SUCRALFATE 1 GM/10 ML UDC PO SCH (08:40)
[2017-04-23] MEDS: APIXABAN 2.5 MG TAB PO SCH (08:40)
[2017-04-23] MEDS: FUROSEMIDE 40 MG TAB PO SCH (08:41)
[2017-04-23] MEDS: CEROVITE ADV FORMULA TAB PO SCH (08:41)
[2017-04-23] MEDS: GUAIFENESIN 600 MG TABCR PO SCH (08:42)
[2017-04-23] MEDS: ASPIRIN 81 MG ECTAB PO SCH (08:42)
[2017-04-23] MEDS: METOPROLOL TARTRATE 25 MG TAB PO SCH (08:42)
[2017-04-23] MEDS: FERROUS SULFATE 325 MG TAB PO SCH (08:42)
[2017-04-23] MEDS: POTASSIUM CHLORIDE PWD 20 MEQ PACK PO SCH (08:43)
[2017-04-23] MEDS: DILTIAZEM HCL 180 MG CAPCR PO SCH (08:44)
[2017-04-23] MEDS ORDERED: GFNSR600 PO (10:33)
[2017-04-23] MEDS ORDERED: SUCR1TAB29 PO (10:33)
[2017-04-23] MEDS ORDERED: POTA10PO PO (10:33)
--- NOTE | 2017-04-23 10:37 | Discharge Instructions ---
Discharge Instructions Date of Service Apr 23, 2017. Admission Reason for Admission: Elevated Troponin, pneumonia, difficulty breathing Discharge Discharge Diagnosis / Problem: elevated troponin, pneumonia Discharge Goals Goal(s): Decrease discomfort, Improve disease control Activity Recommendations Activity Limitations: resume your previous activity Exercise/Sports Limitations: gradually increase as tolerated . Instructions / Follow-Up Instructions / Follow-Up Congestive Heart Failure Instructions: Call 911 or go to the Emergency Room if: * You have tightness or pain in your chest that does not go away with rest or Nitroglycerin * You are very short of breath even with rest Call your doctor if any of the following symptoms or problems start or get worse: * Shortness of breath or difficulty breathing * Wake up at night short of breath * Chest pain * Cough * Swelling of your hands, fee, or legs * More fatigued or tired with your normal activity * Palpitations - sudden fast heart beats WEIGHT * Weigh yourself every morning after using the bathroom. * Use the same scale. * Wear the same amount of clothing. * Write your weight down on your chart. * Call your doctor (head wood grinder or family doctor) if you gain more than 2-3 pounds in 1-2 days. This is likely a sign that you are taking on fluid weight from your heart conditions. MEDICATIONS * Use this discharge instruction sheet for instructions. * Take your medications at the time your doctor ordered. * Do not skip a dose of your medicines. * If you miss a dose of medicine, take as soon as possible, but DO NOT DOUBLE A DOSE. * Read your medicine information when you get home. * Know all of the side effects of your medicine. * Call your doctor's office if you have any side effects. * Be sure all of your doctors know what medicine and herbs you take (including cold, flu, and herbal medicine). * Pain Medicine: If you do not get relief from your pain, please call your doctor for help. Take the following with you to your follow-up doctor appointments: * Weight Chart * Medication List * List of questions Do not drink excessive alcohol, beer or wine. Please note that you have completed all 10 days of your antibiotics for your pneumonia. Current Hospital Diet Patient's current hospital diet: Regular Diet Discharge Diet Recommended Diet: AHA Diet (Heart Healthy) Procedures Procedures Performed: Chest CT Venous Doppler Chest Xray Pending Studies Studies pending at discharge: no Medical Emergencies . Who to Call and When: Medical Emergencies: If at any time you feel your situation is an emergency, please call 911 immediately. . Non-Emergent Contact Non-Emergency issues call your: Primary Care Provider Call Non-Emergent contact if: you have a fever, you have any medication questions . Past History Medical & Surgical History: (1) Dyspnea (2) Elevated troponin (3) Pneumonia . "Provider Documentation" section prepared by Luz Harris. . VTE Core Measure Inpt VTE Proph given/why not?: Other Anticoagulation (Eliquis)
[2017-04-23 11:02] VITALS: BP 170/81; PULSE 72; TEMP 35.6; O2SAT 99
--- NOTE | 2017-04-23 18:55 | Discharge Summary ---
Discharge Summary Date of Service Apr 23, 2017. Discharge Summary Admission Date: Apr 17, 2017 at 21:19 Discharge Date: Apr 23, 2017 Discharge Disposition: assisted facility Principal Diagnosis: b/l pneumonia, possible gram negative; elevated troponin Problems/Secondary Diagnoses: COPD CAD chronic diastolic CHF chronic hypoxic respiratory failure on home o2 Atrial fibrillation with RV Benign hypertension severe aortic stenosis s/p TAVR 2016 CKD stage 3 anxiety disorder glaucoma hypothyroidism Immunizations: Have You Had Influenza Vaccine: No History of Tetanus Vaccine?: utd History of Hepatitis B Vaccine: No Procedures: CT chest IMPRESSION: 1. Cardiomegaly and emphysema. 2. There is a small left pleural effusion with associated atelectasis. This has modestly decreased in size from 03/19/2017. The right pleural effusion has resolved. 3. A 12 mm irregular nodule at the right apex is unchanged from 03/19/2017. While nonspecific, the lack of change is concerning and although this could be on an infectious/inflammatory basis neoplasm is not excluded. 4. There are new patchy/nodular opacities in the left upper lobe as well as patchy groundglass opacities in the right lower lobe. These are also nonspecific and likely on an infectious/inflammatory basis. Clinical correlation will be required. At a minimum, continued CT follow-up of these findings recommended. 5. Additional findings as above. Venous Doppler IMPRESSION: No DVT within the right or left lower extremity. No change from the prior study. CXR IMPRESSION: Unchanged exam. Unchanging left and to a lesser extent right pleural effusion combined with a stable left basilar infiltrate. Echocardiogram: * -- Conclusions -- * Left ventricular systolic function is normal. * There is moderate concentric left ventricular hypertrophy. * The left atrium is mildly dilated. * There is a bioprosthetic aortic valve. * There is mild-moderate collette-prosthetic regurgitation. * There is moderate mitral regurgitation. * Right ventricular systolic pressure is elevated at 30-40mmHg. * Compared to study from 10/24/2016, the bioprosthetic gradients are similar. The degree of periprosthetic regurgitation appears slightly worse. Consultations: Pulmonology - Dr. Rucker Medication Reconciliation New Medications: Potassium Chloride (Potassium Chloride) 20 Meq Pow 20 MEQ PO DAILY for 30 Days, #30 DOSE Guaifenesin Ext Rel (Mucinex Ext Rel) 600 Mg Tabcr 600 MG PO Q12 for 7 Days, #14 DOSE Continued Medications: Alprazolam (Xanax) 0.25 Mg Tab 0.5 MG PO Q12 PRN for Anxiety, TAB Apixaban (Eliquis) 2.5 Mg Tab 2.5 MG PO BID Aspirin (Aspirin) 81 Mg Tab 81 MG PO Q24H Digoxin (Digoxin) 0.125 Mg Tab 0.125 MG PO DAILY@16 for 30 Days, TAB Diltiazem HCl (Diltiazem HCl ER) 360 Mg Tabcr 360 MG PO DAILY Docusate Sodium (Docusate Sodium) 100 Mg Cap 100 MG PO TID PRN for Constipation Ergocalciferol (Vitamin D 81964 Unit) 50,000 Unit Cap 02489 INTER.UNIT PO WK wednesdays Fluticasone Furoate-Vilanterol (Breo Ellipta) 1 Inh Inh 1 INHA PO DAILY Furosemide (Lasix) 40 Mg Tab 40 MG PO UD, TAB Home O2 Therapy (Oxygen) Gas 3-4 LITERS NA HS Levalbuterol (Levalbuterol HCl) 0.63 Mg/3 Ml Nebu 0.63 MG INH Q6R for 30 Days Levothyroxine Sodium (Levothyroxine Sodium) 75 Mcg Tab 75 MCG PO QAM, TAB Metoprolol Tartrate (Lopressor) 25 Mg Tab 12.5 MG PO BID for 30 Days, TAB Multiple Vitamins W/ Minerals (Multi Complete) 1 Cap Cap 1 CAP PO DAILY Prednisone (Prednisone) 10 Mg Tab 10 MG PO DAILY, #30 TAB Sucralfate (Carafate) 1 Gm Tab 1 GM PO TID for 90 Days, #270 TAB (This prescription has been renewed) Travoprost (Travatan Z) 0.004 % Bassam 1 DROPS OP HS, #1 BTL 5 Refills Discontinued Medications: Doxycycline Hyclate (Doxycycline Hyclate) 100 Mg Cap 100 MG PO BID for 4 Days, #8 CAP Take with small amount of food and remain upright for 30 min afterwards Levofloxacin (Levaquin) 750 Mg Tab 750 MG PO Q2D, #2 TAB Next dose DUE 04/18/17 and then again on 04/20/17 Potassium Chloride (Klor-Con M20) 20 Meq Tabcr 20 MEQ PO BID Discharge Exam ROS Constitutional: no chills, aches, sweats or fever Respiratory: sob, productive cough Cardiac: no chest pain, palpitations, edema, orthopnea or lightheadedness GI: no abdominal pain, nausea, vomiting, diarrhea or constipation : no dysuria or hesitancy Extremities: no joint pain or weakness Skin: no rash Exam General: no distress Eyes: normal inspection, PERLL Respiratory: chest non tender, faint expiratory wheezes bilaterally, normal breath sounds, no respiratory distress, no accessory muscle use Cardiac: regular rate and rhythm, no rub or gallop, 2/6 systolic murmur, no edema, no jvd GI/: active bowel sounds, no abd pain or tenderness, soft, non distended Extremities: normal range of motion, normal strength, non tender Neuro/Psych: alert and oriented x 3, normal mood and affect Skin: normal color, dry Hospital Course The patient is an 87 year old female with a complex cardiopulmonary history including CAD, COPD, CHF, Aortic stenosis s/p TAVR, Afib, HTN, Pulmonary HTN and most recently a diagnosis of HAP for which she was discharged 04/15 and presented to the ED for this admission 04/17 due to sob stating that her 4 L baseline O2 oxygen requirement did not feel sufficient. She also complained of coughing dark yellow sputum which was a change for her compared to the time of discharge. Elevated troponin - trended back down, peaked at .062, no chest pain - Echo showed slightly worse periprosthetic regurgitation - Consulted cardiology - continued home regimen - A.fib rate controlled on telemetry Dyspnea/ HAP - D-dimer elevated - lower extremity US per pulm rec was negative - continued levaquin for 10 days and doxycycline for 7 - no further abx for discharge - continued 4L O2 - patient desats to mid 80s without oxygen Chronic Diastolic CHF/A.fib/CAD/Hx TAVR - Echo as above - Continued home doses of ASA, diltiazem, Eliquis, Metoprolol, Digoxin, Lasix, prn nitro. - small effusions on cxr, but does not appear to be fluid overloaded - effusions resolving on chest CT 04/20 COPD - Duonebs q6h - Continued chronic 10 mg Prednisone daily - consulted palliative care - Roxanol q3h per their recommendation - patient was very unhappy to have been prescribed morphine for air hunger and refused to take the medication. She also refused to consider hospice for discharge because she had a bad experience with a hospice nurse in the past. Diarrhea - outpatient stool cultures negative - C. Diff negative - likely due to antibiotics Hypothyroidism - Continued Levothyroxine Anxiety - Continued Alprazolam Patient would really benefit from going home with hospice or moving to assisted living but she refused. Patient went home continuing home health Attending Attestation: Pt seen/examined, chart reviewed, discharge care plan d/w CARLOS Luz Kimberly. I agree w/ the hernandez components of her discharge summary. 87yo female with chronic hypoxic resp failure 2nd to COPD & pulmonary HTN along with valvular heart disease & a. fib who presented with c/o dyspnea. Despite her complaints she had a very uneventful hospital stay marked by stable O2 sats on her home O2 amount, stable labs, and stable chest imaging. CXR and CT chest showed mild b/l pulmonary infiltrates. She was continued on levaquin for her pneumonia. Sputum culture failed to grow any specific pathogen. She was seen in consult by pulmonary & palliative care. Patient refused palliative care services at discharge or transfer to assisted living. She will return home with services. On day of discharge, while I was reviewing her discharge medication list with the nursing staff and her, she complained of chest tenderness along the left sterno-costal cartilage margin. The pain was reproducible on examination. I explained to her that this was likely sore muscles and/or inflamed cartilage from coughing. Heat and tylenol were advised. Between her last hospital stay and this stay she has completed her entire 10- day course of antibiotics. She will remain on prednisone 10mg daily as directed by Dr. Rucker. Discharge exam - gen - nad mouth - no thrush neck - no JVD heart - irregular, s1, s2, 2/6 systolic murmur RUSB lungs - CTA b/l abd - soft ext - no edema chest - tender along the left sternal-costal cartilage junction Janes Lopez MD Total Time Spent: Greater than 30 minutes This includes examination of the patient, discharge planning, medication reconciliation, and communication with other providers. Discharge Instructions Please refer to the electronic Patient Visit Report (Discharge Instructions) for additional information. Follow-Up Dr. Hurtado on SundayApril 24 at 1:30 pm at [facility]. Dr. Rucker on SundayApril 30 at 1:30 pm at [facility] Pulmonology Office. John Garvin PA-C on May 03 at 11:00 am at [facility] Cardiology Office.. Additional Copies To Lee Rucker DO; Sheila Hurtado M.D.; John Garvin,P.A.
== END 2017-04-23 15:00 | disposition home health service (06) | DRG 178 ==
LOC: C.EDB 17:34 → C.MED 21:19 → ENRESERV 21:30
PROVIDERS: ADMIT Student in an Organized Health Care Education/Training Program; ATTEND Internal Medicine
DX: J15.6 Pneumonia due to other Gram-negative bacteria (principal); J96.10 Chronic respiratory failure, unspecified whether with hypoxia or hypercapnia; I50.32 Chronic diastolic (congestive) heart failure; J44.1 Chronic obstructive pulmonary disease with (acute) exacerbation; I24.8 Other forms of acute ischemic heart disease; I27.20 Pulmonary hypertension, unspecified; I48.2 Chronic atrial fibrillation; I11.0 Hypertensive heart disease with heart failure; I25.10 Atherosclerotic heart disease of native coronary artery without angina pectoris; F41.9 Anxiety disorder, unspecified; I35.0 Nonrheumatic aortic (valve) stenosis; E03.9 Hypothyroidism, unspecified; R19.7 Diarrhea, unspecified; H40.9 Unspecified glaucoma; Z51.5 Encounter for palliative care; Z66 Do not resuscitate; Z79.01 Long term (current) use of anticoagulants; Z79.52 Long term (current) use of systemic steroids; Z79.82 Long term (current) use of aspirin; Z79.899 Other long term (current) drug therapy; Z95.2 Presence of prosthetic heart valve; Z99.81 Dependence on supplemental oxygen; Z87.891 Personal history of nicotine dependence; Z88.0 Allergy status to penicillin; Z88.2 Allergy status to sulfonamides; Z91.040 Latex allergy status

== ENCOUNTER 2017-05-10 05:46 | Inpatient (IN) | payer OTHER ==
[~2017-05-10] VITALS: Ht 154.9 cm; Wt 49.9 kg
[2017-05-10] VITALS (13 sets, daily range): BP systolic 97–138; BP diastolic 60–91; PULSE 85–123; TEMP 37.8–38.8; O2SAT 93–100; Ht 154.9 cm; Wt 49.9 kg
[~2017-05-10 05:46] MED LIST changes: -DXY100 PO; -FERR1TAB62 PO; +GFNSR600 PO; -LEVO1TAB35 PO; +LEVO750T23 PO; -MCRK20 PO; +POTA10PO PO; -XLTOPS OPB
[2017-05-10] MEDS ORDERED: LORAZEPAM 2 MG/ML 1 ML VIAL ONE (05:56)
--- NOTE | 2017-05-10 06:09 | EMERGENCY ROOM VISIT NOTE ---
History Report prepared by Luana: Cesar Arambula Under the Supervision of: Dr. Haley Atkinson D.O. First contact with patient: 05:48 Chief Complaint: RESPIRATORY DISTRESS Stated Complaint: BREATHING DIFFICULTY History of Present Illness The patient is an 87 year old female who presents to the Emergency Room with complaints of constant, severe, shortness of breath beginning an hour ago. EMS states the patient had a duoneb before they arrived, and she was given another one in route. They report the patient was placed on C-PAP. EMS notes the patient 's O2Sat was in the low 80s upon arrival, and the patient was on 3L of [place] oxygen. They report the patient could not give a history. The patient states she has been placed on a ventilator before. Review of EMR shows the patient has a history of COPD, respiratory failure, CHF, and aortic stenosis. HPI limited secondary to the patient's dyspnea. Source of History: patient, EMS History Limited By: dyspnea Review of Systems ROS limited secondary to the patient's dyspnea. 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 (21) Neck pain (22) Pneumonia (23) Pneumonia (24) Recurrent falls (25) Respiratory distress (26) Right humeral fracture (27) Severe aortic stenosis by prior echocardiogram (28) SOB (shortness of breath) Family History Heart disease Hypertension Social History Smoking Status: Former Smoker Alcohol Use: none Drug Use: none Marital Status: Housing Status: lives alone Occupation Status: retired Current/Historical Medications Scheduled Apixaban (Eliquis), 2.5 MG PO BID Aspirin (Aspirin), 81 MG PO Q24H Digoxin (Digoxin), 0.125 MG PO DAILY@16 Diltiazem HCl (Diltiazem HCl ER), 360 MG PO DAILY Ergocalciferol (Vitamin D 07893 Unit), 50,000 INTER.UNIT PO WK Fluticasone Furoate-Vilanterol (Breo Ellipta), 1 INHA PO DAILY Furosemide (Lasix), 40 MG PO DAILY Guaifenesin Ext Rel (Mucinex Ext Rel), 600 MG PO Q12 Home O2 Therapy (Oxygen), 3-4 LITERS NA HS Levalbuterol (Levalbuterol HCl), 0.63 MG INH Q6R Levofloxacin (Levaquin), 750 MG PO DAILY Levothyroxine Sodium (Levothyroxine Sodium), 75 MCG PO QAM Metoprolol Tartrate (Lopressor), 12.5 MG PO BID Multiple Vitamins W/ Minerals (Multi Complete), 1 CAP PO DAILY Potassium Ext Rel (Klor-Con), 20 MEQ PO BID Prednisone (Prednisone), 10 MG PO DAILY Sucralfate (Carafate), 1 GM PO TID Travoprost (Travatan Z), 1 DROPS OP HS Scheduled PRN Albuterol Hfa (Ventolin Hfa), 1-2 PUFFS PO q4-6 hrss PRN for SOB/Wheezing Alprazolam (Xanax), 0.5 MG PO Q12 PRN for Anxiety Docusate Sodium (Docusate Sodium), 100 MG PO TID PRN for Constipation Allergies Coded Allergies: Clonidine (Verified Allergy, Mild, SHORTNESS OF BREATH, 05/10/17) Iodinated Diagnostic Agents (Verified Allergy, Unknown, "IT JUST AFFECTS ME AND I CAN'T EXPLAIN IT", 05/10/17) Latex1 -Allergic Contact Dermititis (Verified Allergy, Unknown, RASH, ) Penicillins (Verified Allergy, Unknown, UNKNOWN, 05/10/17) Sulfa Antibiotics (Verified Allergy, Unknown, "SWELLING IN MOUTH AND DRIED OUT", 05/10/17) Physical Exam Vital Signs Date Time Temp Pulse Resp B/P (MAP) Pulse Ox O2 Delivery O2 Flow Rate FiO2 05/10/17 07:27 100 05/10/17 07:04 BiPAP 100 05/10/17 07:01 112 18 189/113 100 05/10/17 07:01 100 BiPAP 100 05/10/17 07:00 194/112 05/10/17 06:59 100 05/10/17 06:50 37.1 111 32 206/116 100 BiPAP 100 05/10/17 06:46 103 28 197/115 100 05/10/17 06:34 172/90 05/10/17 06:31 104 0 173/81 99 05/10/17 06:28 199/113 05/10/17 06:16 107 28 100 05/10/17 06:12 208/118 05/10/17 06:03 123 100 100 05/10/17 06:01 112 31 206/119 05/10/17 05:55 108 Physical Exam General: Severe respiratory distress. Anxious. HEENT: Head - normocephalic and atraumatic Pupils are equal, round, and reactive to light. Extraocular eye muscles are intact, and sclera are anicteric. Nose - moist nasal mucosa without discharge. Mouth - moist buccal mucosa. Oropharynx is nonerythematous and there is no tonsillar exudate or edema noted. Neck: Supple; no JVD, nuchal rigidity, cervical lymphadenopathy. Heart: Regular rate and rhythm. There is a normal S1 and S2 with no murmurs, clicks, or gallops appreciated. Lungs: Minimal airflow throughout all lung luis. Abdomen: Soft, completely nontender, nondistended, with good bowel sounds. There are no palpable pulsatile masses or hepatosplenomegaly. There is no guarding, rigidity, or rebound noted. Extremities: No evidence of cyanosis, clubbing, or edema. There are easily palpable peripheral pulses. Skin: Pale and cyanotic. Medical Decision & Procedures ER Provider Diagnostic Interpretation: X-ray results as stated below per interpretation by me and the radiologist: Portable chest x-ray: CHF with a left-sided pleural effusion that looks slightly worse than a comparison x-ray on 04/17/17. Post intubation chest x-ray: endotracheal tube is 2cm above the irene. Obvious pulmonary edema with an opacity in the right lower lobe lung. Laboratory Results 05/10/17 06:18 Red Blood Count 4.17, Mean Corpuscular Volume 95.9, Mean Corpuscular Hemoglobin 31.2, Mean Corpuscular Hemoglobin Concent 32.5, Mean Platelet Volume 10.2, Neutrophils (%) (Auto) 82.8, Lymphocytes (%) (Auto) 10.8, Monocytes (%) (Auto) 4.2, Eosinophils (%) (Auto) 0.8, Basophils (%) (Auto) 0.2, Neutrophils # (Auto) 19.62, Lymphocytes # (Auto) 2.56, Monocytes # (Auto) 0.99, Eosinophils # (Auto) 0.20, Basophils # (Auto) 0.05 05/10/17 06:18 Test 05/10/17 06:03 05/10/17 06:18 05/10/17 06:21 05/10/17 06:30 Arterial Blood pH 7.23 (7.35-7.45) Arterial Blood Partial Pressure CO2 73 mmHg (35-46) Arterial Blood Partial Pressure O2 218 mm/Hg (80-95) Arterial Blood HCO3 30 mmol/L (19-24) Arterial Blood Oxygen Saturation 99.5 % (90-95) Arterial Blood Base Excess 0.9 mEq/L (-9-1.8) Arterial Blood Gas Delivery 100% Onesimo Test POS (POS) White Blood Count 23.71 K/uL (4.8-10.8) Red Blood Count 4.17 M/uL (4.2-5.4) Hemoglobin 13.0 g/dL (12.0-16.0) Hematocrit 40.0 % (37-47) Mean Corpuscular Volume 95.9 fL (80-100) Mean Corpuscular Hemoglobin 31.2 pg (25-34) Mean Corpuscular Hemoglobin Concent 32.5 g/dl (32-36) Platelet Count 289 K/uL (130-400) Mean Platelet Volume 10.2 fL (7.4-10.4) Neutrophils (%) (Auto) 82.8 % Lymphocytes (%) (Auto) 10.8 % Monocytes (%) (Auto) 4.2 % Eosinophils (%) (Auto) 0.8 % Basophils (%) (Auto) 0.2 % Neutrophils # (Auto) 19.62 K/uL (1.4-6.5) Lymphocytes # (Auto) 2.56 K/uL (1.2-3.4) Monocytes # (Auto) 0.99 K/uL (0.11-0.59) Eosinophils # (Auto) 0.20 K/uL (0-0.5) Basophils # (Auto) 0.05 K/uL (0-0.2) RDW Standard Deviation 51.2 fL (36.4-46.3) RDW Coefficient of Variation 14.6 % (11.5-14.5) Immature Granulocyte % (Auto) 1.2 % Immature Granulocyte # (Auto) 0.29 K/uL (0.00-0.02) Anion Gap 5.0 mmol/L (3-11) Estimated GFR () 67.1 Estimated GFR (Non- 57.9 BUN/Creatinine Ratio 19.5 (10-20) Calcium Level 8.7 mg/dl (8.5-10.1) Total Bilirubin 0.5 mg/dl (0.2-1) Aspartate Amino Transf (AST/SGOT) 32 U/L (15-37) Alanine Aminotransferase (ALT/SGPT) 29 U/L (12-78) Alkaline Phosphatase 81 U/L (45-117) Total Creatine Kinase 39 U/L (26-192) Creatine Kinase MB 2.3 ng/ml (0.5-3.6) Creatine Kinase MB Ratio 5.9 (0-3.0) Troponin I 0.065 ng/ml (0-0.045) Pro-B-Type Natriuretic Peptide 1281 pg/ml (0-1800) Total Protein 6.9 gm/dl (6.4-8.2) Albumin 3.5 gm/dl (3.4-5.0) Globulin 3.4 gm/dl (2.5-4.0) Albumin/Globulin Ratio 1.0 (0.9-2) Bedside Lactic Acid Venous 1.77 mmol/L (0.90-1.70) Prothrombin Time 11.2 SECONDS (9.0-12.0) Prothromb Time International Ratio 1.1 (0.9-1.1) Activated Partial Thromboplast Time 24.7 SECONDS (21.0-31.0) Partial Thromboplastin Ratio 1.0 Laboratory results per my review. Medications Administered Medications (Trade) Dose Ordered Sig/Yared Route Start Time Stop Time Status Last Admin Dose Admin Lorazepam (Ativan Inj) 2 mg STK-MED ONCE .ROUTE 05/10/17 05:56 05/10/17 05:57 DC 05/10/17 06:19 0.5 MG Miscellaneous (Rapid Sequence Induction Bag) 1 ea STK-MED ONCE N/A 05/10/17 06:20 05/10/17 06:21 DC 05/10/17 06:20 1 EA Propofol (Diprivan Iv Emulsion 100ml Vial) 1 dose STK-MED ONCE IV 05/10/17 06:36 05/10/17 06:37 DC 05/10/17 07:05 1 DOSE Aztreonam 2000 mg/ Dextrose 110 ml @ 100 mls/hr NOW STAT IV 05/10/17 06:42 05/10/17 07:47 05/10/17 07:05 100 MLS/HR Procedure 0556: Ordered Lorazepam 2mg IV 0620: Ordered Rapid Sequence Induction Bag 0636: Ordered Propofol 1 dose IV 0642: Ordered Aztreonam 2000 mg/Dextrose 110ml @ 100mls/hr IV 0645: Ordered Levofloxacin 750mg IV Endotracheal Intubation Indication respiratory failure. The patient was on 100% oxygen via NRB prior to the procedure. Suction, airway equipment, RSI drugs, respiratory equipment, and appropriate personnel were prepared prior to the initiation of the procedure. A time out was taken. Induction was performed with 120 mg succinylcholine and 20 mg etomidate. After observing the clinical benefit of the medications, the airway was easily visualized utilizing a GlideScope. A 7.5 size ETT tube was placed atraumatically to 21 cm using standard technique. The cuff inflated without signs of malfunction. There were bilateral breath sounds, positive colormetric change, no gastric sounds, a good capnography waveform, and post procedure pulse oximetry was 100%. Post intubation sedation and paralysis was administered using propofol. There were no complications. ECG Indication: SOB/dyspnea Rate (beats per minute): 106 Rhythm: atrial fibrillation Findings: LBBB, no acute ischemic change, other (Poor baseline) Comparison ECG Date: 04/17/17 Change: no significant change ED Course 0548: The patient was evaluated in room B02. A complete history and physical examination were performed. Nursing notes and previous electronic medical records were reviewed. IV lock was established and labs were drawn as above. A portable chest x-ray was performed. The patient was placed on BiPAP from the EMS CPAP. 0556: Ordered Lorazepam 0.5 mg IV 0620: Ordered Rapid Sequence Induction Bag 0622: The patient was intubated. Please refer to the procedure note for more details. Post intubation x-ray was performed. 0632: I paged Dr. Benitez, [facility] Hospitalist to place an order for the patient. 0636: The patient was started on a propofol drip for sedation. She remained hemodynamically stable. 0639: I discussed the patient's case with Dr. Thompson, [employer]. The patient will be evaluated for further need. 0642: Ordered Aztreonam 2000 mg/Dextrose 110ml @ 100mls/hr IV 0645: Ordered Levofloxacin 750mg IV. 0730 the patient was evaluated by Dr. Thompson: Medical Decision The patient is an 87 year old female who presents to the ED with shortness of breath. Differential diagnosis includes CHF, COPD, hypercarbic respiratory failure, pneumonia. Lab results show: troponin of 0.065, WBC of 23.7, stable H&H, 82% neutrophile, lactic acid of 1.7, glucose of 248, normal renal function, LFTs are normal. ABG shows: pH of 7.2, pCO2 of 72, pO2 of 218, Bicarbonate level of 30, O2Sat of 99.5 Medication Reconcilliation Current Medication List: was personally reviewed by me Blood Pressure Screening Patient's blood pressure: Elevated blood pressure Monitored by the hospitalist. Consults Time Called: 0631 Consulting Physician: Dr. Thompson, [employer] [facility] Returned Call: 0639 I discussed the patient's case with Dr. Thompson, [employer]. The patient will be evaluated for further need. Additional Consults: Time Called: 0632 Consulted Physician: Dr. Benitez, [facility] Hospitalist Additional Comments: I paged Dr. Benitez, [facility] Hospitalist to place an order for the patient. Impression Primary Impression: Respiratory failure Additional Impressions: CHF (congestive heart failure) PNA (pneumonia) Scribe Attestation The scribe's documentation has been prepared under my direction and personally reviewed by me in its entirety. I confirm that the note above accurately reflects all work, treatment, procedures, and medical decision making performed by me. Departure Information Dispostion Being Evaluated By Hospitalist Referrals Sheila Hurtado M.D. (PCP) Patient Instructions Asthma - [facility], COPD - [facility], Croup - [facility], My [facility] Problem Qualifiers Primary Impression: Respiratory failure Chronicity: acute Respiratory failure complication: hypoxia and hypercapnia Qualified Codes: J96.01 - Acute respiratory failure with hypoxia; J96.02 - Acute respiratory failure with hypercapnia Additional Impressions: CHF (congestive heart failure) Congestive heart failure type: combined Congestive heart failure chronicity: acute on chronic Qualified Codes: I50.43 - Acute on chronic combined systolic (congestive) and diastolic (congestive) heart failure PNA (pneumonia) Pneumonia type: due to unspecified organism Laterality: bilateral
[2017-05-10] MEDS ORDERED: RAPID SEQUENCE INDUCTION BAG ONE (06:20)
[2017-05-10 06:31] LABS: BASO % 0.2 %; BASO ABS # 0.05 K/uL (0-0.2); EOS % 0.8 %; IG# 0.29 K/uL (0.00-0.02); LYMPH % 10.8 %; LYMPH ABS # 2.56 K/uL (1.2-3.4); MEAN CELL VOLUME 95.9 fL (80-100); MEAN CORPUSCULAR HEMOGLOBIN 31.2 pg (25-34); MEAN CORPUSCULAR HGB CONC 32.5 g/dl (32-36); MEAN PLATELET VOLUME 10.2 fL (7.4-10.4); MONO % 4.2 %; MONO ABS # 0.99 K/uL (0.11-0.59); NEUT % 82.8 %; NEUT ABS # 19.62 K/uL (1.4-6.5); PLATELET COUNT 289 K/uL (130-400); RED CELL DISTRIBUTION WIDTH CV 14.6 % (11.5-14.5); RED CELL DISTRIBUTION WIDTH SD 51.2 fL (36.4-46.3); WHITE BLOOD COUNT 23.71 K/uL (4.8-10.8)
[2017-05-10] MEDS ORDERED: PROPOFOL IV EMULSION 10 MG/ML 100 ML VIAL IV ONE (06:36)
--- NOTE | 2017-05-10 06:37 | DIAGNOSTIC IMAGING REPORT ---
CHEST ONE VIEW PORTABLE HISTORY: 87 years-old Female Sepsis acute sepsis COMPARISON: Chest radiograph 04/17/2017, chest CT 04/20/2017 TECHNIQUE: Portable AP view of the chest FINDINGS: Cardiac silhouette is mildly enlarged, unchanged. Atherosclerosis of the aorta. Prosthetic aortic valve. Previously described spiculated nodule of the right lung apex is not definitively seen. Emphysematous changes redemonstrated. Mild pulmonary vascular congestion with background interstitial coarsening hazy perihilar and bibasilar alveolar opacities. Small left greater than right pleural effusions. Trace fluid is noted tracking along the minor fissure. Bones of the chest appear grossly intact. IMPRESSION: 1. Cardiomegaly and mild pulmonary vascular congestion with bilateral mixed interstitial and alveolar opacities within a perihilar and bibasilar predominant distribution suggesting pulmonary edema or pneumonia. 2. Emphysema. The above report was generated using voice recognition software. It may contain grammatical, syntax or spelling errors. Electronically signed by: Camden Avendano M.D. 05/10/2017 6:35 AM Dictated Date/Time: 05/10/2017 6:31 AM
[2017-05-10] MEDS ORDERED: AZTREONAM IV 2,000 MG in DEXTROSE 5% 100ML 100 ML IV STA (06:42)
[2017-05-10] MEDS ORDERED: LEVAQUIN 750MG / 150ML D5W IV ONE (06:45)
--- NOTE | 2017-05-10 06:51 | DIAGNOSTIC IMAGING REPORT ---
CHEST ONE VIEW PORTABLE CLINICAL HISTORY: RESP DISTRESS/INTUBATION COMPARISON STUDY: 05/10/2017 FINDINGS: The cardiac and mediastinal contours remain stable. A prostatic aortic valve is visualized. An endotracheal tube has been placed which is positioned 3.6 cm above the irene. There is evidence for interstitial pulmonary edema. Trace pleural effusions are suspected. Pleural fluid volume appears smaller than on the prior study.[ IMPRESSION: 1. Endotracheal tube 3.6 cm above the irene 2. Interstitial pulmonary edema. Electronically signed by: Stephen Cobos M.D. 05/10/2017 6:50 AM Dictated Date/Time: 05/10/2017 6:49 AM
[2017-05-10] MEDS ORDERED: VNTHFA/IN PO (06:57)
[2017-05-10 07:01] LABS: ALBUMIN 3.5 gm/dl (3.4-5.0); ALT/SGPT 29 U/L (12-78); AST/SGOT 32 U/L (15-37); BLOOD UREA NITROGEN 18 mg/dl (7-18); CALCIUM 8.7 mg/dl (8.5-10.1); CARBON DIOXIDE 30 mmol/L (21-32); GLUCOSE 248 mg/dl (70-99); POTASSIUM 4.5 mmol/L (3.5-5.1); SODIUM 134 mmol/L (136-145)
[2017-05-10] MEDS ORDERED: POTA-639 PO (07:03)
[2017-05-10 07:08] LABS: ALKALINE PHOSPHATASE 81 U/L (45-117); CKMB 2.3 ng/ml (0.5-3.6); TOTAL PROTEIN 6.9 gm/dl (6.4-8.2)
[2017-05-10 07:13] LABS: INR 1.1 (0.9-1.1); PTT PATIENT 24.7 SECONDS (21.0-31.0)
[2017-05-10] MEDS ORDERED: ICU PROTOCOL FOR HYPERGLYCEMIA PRN (07:45)
[2017-05-10] MEDS ORDERED: FENTANYL CITRATE INJ 50 MCG/1 ML 2 ML VIAL IV PRN (07:45)
[2017-05-10] MEDS ORDERED: MIDAZOLAM HCL 1 MG/ML 2ML VIAL IV PRN (07:45)
--- NOTE | 2017-05-10 07:59 | Critical Care Consultation ---
Critical Care Consultation Date of Consultation: May 10, 2017. 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 Thompson This is an 81 yo female that lives alone that was found unresponsive. She was intubated for acute respiratory failure. She currently has a 7.5 mm ID endotracheal tube at 22 at the lip. She is on AC /. I have reviewed her outpatient records and it appears as though the patient wishes to be a level V do not intubate, do not resuscitate. She was intubated when she arrived in our unit. I did try to contact her son for further information with no return call. The patient currently is unable to provide any history or ROS secondary condition. In review of her records she does follow with Dr. Rucker for pulmonary and has severe disease. She is on home O2 at 3-4 L/m via nasal cannula. She is on chronic prednisone at 10 mg daily for arthritis. This has been unable to be weaned below 10 mg daily. She currently is in no distress and is in sync with the mechanical ventilator. She does appear to have significant CHF, hypertension, COPD. We currently have her on antibiotics for hospital- associated pneumonia secondary to recent hospitalizations including 04/14-04/16 and then 04/17 to 04/23. The patient has a past medical history including chronic atrial fibrillation, severe/critical aortic stenosis, S/P TVAR 10/18/16, diastolic dysfunction, concentric LVH, mild mitral regurgitation, moderate tricuspid regurgitation, severe pulmonary hypertension, severe COPD, likely right sided CHF. Her chronic A. fib is treated with L and metoprolol tartrate. She is also on digoxin daily as well as diltiazem. Most recent cardiac catheterization was 09/29/2016. 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 Neck pain Pneumonia Recurrent falls Right humeral fracture Severe aortic stenosis by prior echocardiogram Past surgical history: Aortic valve replacement Cataract removal with prosthetic lens placement Diagnostic cystoscopy Removal of skin lesion Family History Heart disease Hypertension Social History Smoking Status: Unknown if Ever Smoked Smokeless Tobacco Use: Unknown Drug Use: none Marital Status: Housing Status: lives alone Occupation Status: retired Allergies Coded Allergies: Clonidine (Verified Allergy, Mild, SHORTNESS OF BREATH, 05/10/17) Iodinated Diagnostic Agents (Verified Allergy, Unknown, "IT JUST AFFECTS ME AND I CAN'T EXPLAIN IT", 05/10/17) Latex1 -Allergic Contact Dermititis (Verified Allergy, Unknown, RASH, ) Penicillins (Verified Allergy, Unknown, UNKNOWN, 05/10/17) Sulfa Antibiotics (Verified Allergy, Unknown, "SWELLING IN MOUTH AND DRIED OUT", 05/10/17) Home Medications Scheduled Apixaban (Eliquis), 2.5 MG PO BID Aspirin (Aspirin), 81 MG PO Q24H Digoxin (Digoxin), 0.125 MG PO DAILY@16 Diltiazem HCl (Diltiazem HCl ER), 360 MG PO DAILY Ergocalciferol (Vitamin D 58807 Unit), 50,000 INTER.UNIT PO WK Fluticasone Furoate-Vilanterol (Breo Ellipta), 1 INHA PO DAILY Furosemide (Lasix), 40 MG PO DAILY Guaifenesin Ext Rel (Mucinex Ext Rel), 600 MG PO Q12 Home O2 Therapy (Oxygen), 3-4 LITERS NA HS Levalbuterol (Levalbuterol HCl), 0.63 MG INH Q6R Levofloxacin (Levaquin), 750 MG PO DAILY Levothyroxine Sodium (Levothyroxine Sodium), 75 MCG PO QAM Metoprolol Tartrate (Lopressor), 12.5 MG PO BID Multiple Vitamins W/ Minerals (Multi Complete), 1 CAP PO DAILY Potassium Ext Rel (Klor-Con), 20 MEQ PO BID Prednisone (Prednisone), 10 MG PO DAILY Sucralfate (Carafate), 1 GM PO TID Travoprost (Travatan Z), 1 DROPS OP HS Scheduled PRN Albuterol Hfa (Ventolin Hfa), 1-2 PUFFS PO q4-6 hrss PRN for SOB/Wheezing Alprazolam (Xanax), 0.5 MG PO Q12 PRN for Anxiety Docusate Sodium (Docusate Sodium), 100 MG PO TID PRN for Constipation Current Inpatient Medications Current Inpatient Medications Medications (Trade) Dose Ordered Sig/Yared Route Start Time Stop Time Status Last Admin Dose Admin Heparin Sodium (Porcine) (Heparin Sq 5000 Unit/0.5ml) 5,000 unit Q8H SQ 05/10/17 07:45 06/09/17 07:44 UNV Ondansetron HCl (Zofran Inj) 4 mg Q6H PRN IV 05/10/17 07:45 06/09/17 07:44 UNV Lansoprazole (Prevacid Solutab) 30 mg DAILY PO 05/10/17 09:00 06/09/17 08:59 UNV Miscellaneous Information (Icu Protocol For Hyperglycemia) 1 ea PRN PRN N/A 05/10/17 07:45 05/12/17 07:44 UNV Midazolam HCl (Versed Inj) 2 mg Q30M PRN IV 05/10/17 07:45 06/09/17 07:44 UNV Fentanyl Citrate (Fentanyl Inj) 25 mcg Q2H PRN IV 05/10/17 07:45 05/24/17 07:44 UNV Review of Systems Unable to obtain secondary to patient condition Physical Exam Date Time Temp Pulse Resp B/P (MAP) Pulse Ox O2 Delivery O2 Flow Rate FiO2 05/10/17 07:47 129/84 05/10/17 07:43 91 05/10/17 07:40 104 16 93 05/10/17 07:35 104 17 93 05/10/17 07:31 154/114 05/10/17 07:30 109 15 93 05/10/17 07:27 100 05/10/17 07:25 94 14 98 05/10/17 07:20 92 17 100 05/10/17 07:16 165/100 05/10/17 07:15 103 17 100 05/10/17 07:10 122 21 100 05/10/17 07:05 104 17 100 05/10/17 07:04 BiPAP 100 05/10/17 07:01 112 18 189/113 100 05/10/17 07:01 100 BiPAP 100 05/10/17 07:01 189/113 05/10/17 07:00 194/112 05/10/17 07:00 107 22 194/112 100 05/10/17 06:59 100 05/10/17 06:55 127 21 95 05/10/17 06:50 114 18 92 05/10/17 06:50 37.1 111 32 206/116 100 BiPAP 100 05/10/17 06:46 197/115 05/10/17 06:46 103 28 197/115 100 05/10/17 06:45 107 28 100 05/10/17 06:34 172/90 05/10/17 06:31 104 0 173/81 99 05/10/17 06:28 199/113 05/10/17 06:16 107 28 100 05/10/17 06:12 208/118 05/10/17 06:03 123 100 100 05/10/17 06:01 112 31 206/119 05/10/17 05:55 108 GENERAL : No acute distress. On ventilator EYES: No icterus, gaze conjugate. PERRL NOSE: No evidence of epistaxis. No evidence of septal breech MOUTH: No lesions or candidiasis. Endotracheal tube and OG tube in place and secure NECK: Supple. No stridor or appreciation of carotid bruits LUNGS: Diminished. No bronchospasm or rhonchi HEART: Irregular, irregular in the 110s ABDOMEN: Soft, NT, ND, BS Present EXTREMITIES: No LE edema, pedal pulses intact NEURO: Sedated for mechanical ventilation Laboratory Results Last 24 Hours Test 05/10/17 06:03 05/10/17 06:07 05/10/17 06:18 05/10/17 06:21 Arterial Blood pH 7.23 Arterial Blood Partial Pressure CO2 73 mmHg Arterial Blood Partial Pressure O2 218 mm/Hg Arterial Blood HCO3 30 mmol/L Arterial Blood Oxygen Saturation 99.5 % Arterial Blood Base Excess 0.9 mEq/L Arterial Blood Gas Delivery 100% Onesimo Test POS Creatine Kinase MB Ratio 5.9 White Blood Count 23.71 K/uL Red Blood Count 4.17 M/uL Hemoglobin 13.0 g/dL Hematocrit 40.0 % Mean Corpuscular Volume 95.9 fL Mean Corpuscular Hemoglobin 31.2 pg Mean Corpuscular Hemoglobin Concent 32.5 g/dl Platelet Count 289 K/uL Mean Platelet Volume 10.2 fL Neutrophils (%) (Auto) 82.8 % Lymphocytes (%) (Auto) 10.8 % Monocytes (%) (Auto) 4.2 % Eosinophils (%) (Auto) 0.8 % Basophils (%) (Auto) 0.2 % Neutrophils # (Auto) 19.62 K/uL Lymphocytes # (Auto) 2.56 K/uL Monocytes # (Auto) 0.99 K/uL Eosinophils # (Auto) 0.20 K/uL Basophils # (Auto) 0.05 K/uL RDW Standard Deviation 51.2 fL RDW Coefficient of Variation 14.6 % Immature Granulocyte % (Auto) 1.2 % Immature Granulocyte # (Auto) 0.29 K/uL Sodium Level 134 mmol/L Potassium Level 4.5 mmol/L Chloride Level 99 mmol/L Carbon Dioxide Level 30 mmol/L Anion Gap 5.0 mmol/L Blood Urea Nitrogen 18 mg/dl Creatinine 0.90 mg/dl Estimated GFR () 67.1 Estimated GFR (Non- 57.9 BUN/Creatinine Ratio 19.5 Random Glucose 248 mg/dl Calcium Level 8.7 mg/dl Total Bilirubin 0.5 mg/dl Aspartate Amino Transf (AST/SGOT) 32 U/L Alanine Aminotransferase (ALT/SGPT) 29 U/L Alkaline Phosphatase 81 U/L Total Creatine Kinase 39 U/L Creatine Kinase MB 2.3 ng/ml Troponin I 0.065 ng/ml Pro-B-Type Natriuretic Peptide 1281 pg/ml Total Protein 6.9 gm/dl Albumin 3.5 gm/dl Globulin 3.4 gm/dl Albumin/Globulin Ratio 1.0 Bedside Lactic Acid Venous 1.77 mmol/L Test 05/10/17 06:30 05/10/17 07:37 Prothrombin Time 11.2 SECONDS Prothromb Time International Ratio 1.1 Activated Partial Thromboplast Time 24.7 SECONDS Partial Thromboplastin Ratio 1.0 Diagnostic Results CHEST ONE VIEW PORTABLE CLINICAL HISTORY: RESP DISTRESS/INTUBATION COMPARISON STUDY: 05/10/2017 FINDINGS: The cardiac and mediastinal contours remain stable. A prostatic aortic valve is visualized. An endotracheal tube has been placed which is positioned 3.6 cm above the irene. There is evidence for interstitial pulmonary edema. Trace pleural effusions are suspected. Pleural fluid volume appears smaller than on the prior study.[ IMPRESSION: 1. Endotracheal tube 3.6 cm above the irene 2. Interstitial pulmonary edema. Electronically signed by: Stephen Cobos M.D. CHEST ONE VIEW PORTABLE HISTORY: 87 years-old Female Sepsis acute sepsis COMPARISON: Chest radiograph 04/17/2017, chest CT 04/20/2017 TECHNIQUE: Portable AP view of the chest FINDINGS: Cardiac silhouette is mildly enlarged, unchanged. Atherosclerosis of the aorta. Prosthetic aortic valve. Previously described spiculated nodule of the right lung apex is not definitively seen. Emphysematous changes redemonstrated. Mild pulmonary vascular congestion with background interstitial coarsening hazy perihilar and bibasilar alveolar opacities. Small left greater than right pleural effusions. Trace fluid is noted tracking along the minor fissure. Bones of the chest appear grossly intact. IMPRESSION: 1. Cardiomegaly and mild pulmonary vascular congestion with bilateral mixed interstitial and alveolar opacities within a perihilar and bibasilar predominant distribution suggesting pulmonary edema or pneumonia. 2. Emphysema. The above report was generated using voice recognition software. It may contain grammatical, syntax or spelling errors. Electronically signed by: Camden Avendano M.D. 05/10/2017 6:35 AM Assessment & Plan ACUTE RESPIRATORY FAILURE History of severe COPD with previous CHF exacerbation This episode is most likely multifactorial Recent hospitalizations 2 so will treat as an HCAP QTc 474 so we will use doxycycline and vancomycin Bronchodilators and line Weaning trial per protocol Call placed to son in [facility] [place] as previous admissions patient was a level V DO NOT RESUSCITATE/DO NOT INTUBATE - no call back from son at present Continue management in ICU CARDIOVASCULAR CHF versus pulmonary edema Furosemide 40 mg daily IV Follow clinically At this point we'll hold off on further echocardiogram or cardiology consult Digoxin level I.5 - continue with IV digoxin 125 g daily Patient with history of chronic atrial fibrillation - hold Eliquis today Continue with Lopressor 2.5 IV every 6 Hold home calcium channel ginny PULMONARY History of severe COPD and emphysema Prednisone 10 milligrams daily at home Methylprednisolone 40 mg IV every 6 hours HCAP - cefepime, doxycycline, vancomycin ordered Pulmonary consult requested - appreciate Dr. 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 0.9 Follow serial I's and O's Mejia catheter in place ENDOCRINE No history of diabetes mellitus or hypothyroidism Follow BSG's per ICU protocol IV ACCESS Currently with peripheral IVs No indication for central line at this time ELECTROLYTES Sodium 134 Potassium 4.5 Calcium 8.7 Follow serial labs ID Elevated WBC 23.71 Tmax 38.8 Pro calcitonin 1.41 Broad-spectrum antibiotics including cefepime, doxycycline, vancomycin Blood cultures 2, urine culture, sputum culture pending DVT PROPHYLAXIS Eliquis held in the event that procedures are needed TEDs / SCDs ordered Heparin 5000 units subcutaneous every eight hours CCT: 70 minutes not inclusive of any procedures Thank you for including us in the care of this patient. Please refer to Dr. Thompson's addendum for further recommendations I have personally evaluated and examined this patient. I agree with assessment and plan of Pro Dos Santos PA-C. Converted to doxycycline and a prolonged QT QT in EKG, gentle diuresis. Patient still was having significant vital sign abnormalities during my evaluation will attempt weaning tomorrow allow for further hemodynamic stabilization today. Attempts were made to contact the patient's son
--- NOTE | 2017-05-10 08:15 | NUR ---
A/ID: Patient arrives to ICU room 102 accompanied by nurse and respiratory therapist. Intubated and placed on mechanical ventilator, sedated with propofol. Lung sounds diminished, suctioned for clear thin sputum. +1 pitting edema noted to bilateral legs, atrial fibrillation on monitor with rate 110-125, oral temperature is 38.8. Abdomen soft and distended, positive gas and bowel sounds. Mejia catheter inserted and draining clear yellow urine. Scattered ecchymosis to extremities and skin tear noted to right calf, dressing applied. Prevention foams applied to heels and sacrum, heels elevated. Plan to monitor on ventilator, IV lasix, steroids and antibiotics ordered.
[2017-05-10] MEDS ORDERED: PHARMACY GLYCEMIC MGMT CONSULT STA (10:05)
[2017-05-10] MEDS ORDERED: METOPROLOL TARTRATE 1 MG/ML VIAL ONE (10:14)
[2017-05-10] MEDS ORDERED: AZTREONAM CONSULT ACTIVE PRN (10:15)
[2017-05-10] MEDS ORDERED: PHARMACY GLYCEMIC MGMT CONSULT PRN (10:15)
[2017-05-10] MEDS ORDERED: VANCOMYCIN CONSULT ACTIVE PRN (10:15)
[2017-05-10] MEDS: METOPROLOL TARTRATE 1 MG/ML VIAL IV. SCH ×3 (10:22→23:23)
[2017-05-10] MEDS: FUROSEMIDE INJ 40 MG in SYRINGE 0 ML IV SCH (10:22)
[2017-05-10] MEDS: LANSOPRAZOLE SOLUTAB 30 MG PO SCH (10:24)
[2017-05-10] MEDS: METHYLPREDNISOLONE IV 40 MG in SYRINGE 0 ML IV SCH ×2 (10:24→17:41)
--- NOTE | 2017-05-10 10:25 | NUR ---
A: Propofol infusion discontinued at this time, patient to receive PRN versed and fentanyl. IV lopressor given for rate control. Repositioned in bed. Suctioned and mouth care done.
[2017-05-10] MEDS: HEPARIN SOD 5000 UNIT/0.5 ML CARP SQ SCH ×2 (10:26→17:43)
[2017-05-10] MEDS ORDERED: VANCOMYCIN IV 1,250 MG in SODIUM CHLORIDE 0.9% 250ML 250 ML IV ONE (10:30)
[2017-05-10] MEDS: MIDAZOLAM HCL 1 MG/ML 2ML VIAL IV PRN ×5 (10:36→21:08)
[2017-05-10] MEDS: LEVOTHYROXINE SODIUM INJ 37.5 MCG in SYRINGE 0 ML IV SCH (10:52)
[2017-05-10] MEDS ORDERED: INSULIN IV INFUSION PROTOCOL STA (11:23)
[2017-05-10] MEDS ORDERED: MODERATE STRESS LEVEL ONE (11:30)
[2017-05-10] MEDS ORDERED: INSULIN PROTOCOL GOAL RANGE ONE (11:30)
[2017-05-10] MEDS ORDERED: INSULIN GLARGINE SOLOSTAR 100 UNITS/ML 3 ML PEN SC ONE (11:30)
--- NOTE | 2017-05-10 11:45 | Pharmacy Progress Note ---
Glycemic Control Intl Consult Date of Service May 10, 2017. Scope Glycemic Pharmacist consulted by Dejon Dos Santos on 05/10/17 for glycemic control and to write orders per [facility] inpatient glycemic control protocol Objective Weight (Kilograms): 52.000 Accuchecks BSG (last 24hrs): Test 05/10/17 06:18 05/10/17 09:10 Random Glucose 248 mg/dl (70-99) Bedside Glucose 273 mg/dl (70-90) Laboratory Data (last 24hrs) Test 05/10/17 06:18 Anion Gap 5.0 mmol/L BUN/Creatinine Ratio 19.5 Blood Urea Nitrogen 18 mg/dl Creatinine 0.90 mg/dl Potassium Level 4.5 mmol/L Sodium Level 134 mmol/L White Blood Count 23.71 K/uL Red Blood Count 4.17 M/uL Hemoglobin 13.0 g/dL Hematocrit 40.0 % Mean Corpuscular Volume 95.9 fL Mean Corpuscular Hemoglobin 31.2 pg Mean Corpuscular Hemoglobin Concent 32.5 g/dl Platelet Count 289 K/uL Mean Platelet Volume 10.2 fL Neutrophils (%) (Auto) 82.8 % Lymphocytes (%) (Auto) 10.8 % Monocytes (%) (Auto) 4.2 % Eosinophils (%) (Auto) 0.8 % Basophils (%) (Auto) 0.2 % Neutrophils # (Auto) 19.62 K/uL Lymphocytes # (Auto) 2.56 K/uL Monocytes # (Auto) 0.99 K/uL Eosinophils # (Auto) 0.20 K/uL Basophils # (Auto) 0.05 K/uL Recent Pertinent Medications Outpatient Anti-diabetic Regimen: * None * A1c. None since 2012. On order for 05/11/17. Risk Factors for Insulin Resistance: * Steroids: Methylprednisolone 40 mg IV q8h * Infection: HAP * Diet: NPO * Mechanical Ventilation: *YES* Assessment & Plan ASSESSMENT: * 87 yo F admitted with acute respiratory failure, being treated for HAP. * Previous admission 2-3 weeks ago - patient required no insulin during this ~4 day stay and random AM BSG's all <120 mg/dL, a few < 100 mg/dL. * Significantly more stressors this admission, causing hyperglycemia * Patient may not be diabetic at baseline but has prednisone 10 mg daily listed as home med (increases risk of hyperglycemia). A1c on order for tomorrow. * BSG 273 mg/dL. Will initiate insulin gtt for BSG > 220 mg/dL in ICU patient. Do not anticipate this will need to be prolonged therapy. Likely OK to discontinue soon. * Will give very small dose Lantus (weight-based stress of 1 @ 80% reduction for NPO status) 2nd ICU stress and to help ease transition off of insulin drip * Will start Novolog at ~ weight-based stress of 2 after insulin gtt turns off PLAN FOR INPATIENT GLYCEMIC CONTROL: * Lantus 8 units SC x1 now (administered @ ~1200) * Starting IV insulin infusion per moderate stress protocol until 1800 * Goal Range 120 - 180 mg/dl * Currently on hold unless BSG @ 1500 greater than 180 mg/dL - if so, will resume @ 0.5 units/hr * In the critical care setting, continuous IV insulin infusion has been shown to be the best method for achieving glycemic targets Once insulin drip turns off: * Start Correctional Insulin with NOVOLOG per scale Q4hrs while NPO * Goal Range: Low 140 mg/dL - High 180 mg/dL * Correction Factor: 40 mg/dL/unit * Nutritional / Prandial insulin per carb ratio of 1 unit per 13 grams CHO consumed * Please note that the plan above was derived based on current level of insulin resistance and hospital stress. These recommendations are appropriate for inpatient admission only. Plan of care upon discharge will need to be reassessed to avoid potential outpatient hypo/hyperglycemia. Thank you.
[2017-05-10] MEDS ORDERED: NovoLIN R BOLUS FROM BAG IV ONE (12:00)
[2017-05-10] MEDS ORDERED: INSULIN REGULAR 250 UNITS in SODIUM CHLORIDE 0.9% 250ML 250 ML IV SCH (12:00)
[2017-05-10] MEDS: INSULIN ASPART 100 UNITS/ML 3 ML PEN SC SCH ×4 (12:00→23:43)
--- NOTE | 2017-05-10 12:20 | NUR ---
A: Insulin infusion initiated at this time with bolus and dose of lantus for BSG of 273. Patient remains sedated with PRN versed, has bilateral wrist restraints on. Repositioned in bed and cleaned for incontinent BM. SCDs applied. VSS.
--- NOTE | 2017-05-10 13:50 | NUR ---
A: Insulin infusion held at this time, BSG was 153 after 1 hour so infusion was held for 30 minutes per protocol. BSG rechecked for 166, per pharmacist will keep infusion off at this time.
[2017-05-10] MEDS ORDERED: AZTREONAM 2000 MG in DEXTROSE 5% 100 ML IV SCH (14:00)
--- NOTE | 2017-05-10 15:05 | NUR ---
A: Patient resting and easily arousable to voice, pulling at restraints, given versed. BSG 185, will restart insulin gtt @ 0.5units/hr. Heart rate 120s AFIB, BP stable. Repositioned in bed, suctioned, checked for incontinence.
--- NOTE | 2017-05-10 15:20 | Pulmonary Consultation ---
History General Date of Service: May 10, 2017. Stated Complaint: Acute Respiratory Failure HPI The patient is a 87 year old female who presents to [facility] with complaints of Acute Respiratory Failure. The patient's primary care provider is Sheila Hurtado M.D.. Ms Lane is an 87 year old female with PMH of severe COPD on LTOT of 3-4 L/min, diastolic CHF, aortic stenosis s/p TAVR, atrial fibrillation on Eliquis who presents via EMS with acute shortness of breath that started one hour prior to admission. She is well known to the pulmonary service and has had multiple admission over the last month. Upon arrival to the ER, her initial VS were BP 208/118, P123, RR 18-32, SaO2 100% on NRM. She was placed on BIPAP, but was not able to tolerate and subsequently intubated for respiratory distress. Laboratory data was significant for WBC 23, Hgb 13, and platelet count to 289. Her sodium was 134, CO2 30, BUN 18 and creatinine 0.90. Troponin mildly elevated , but consistent with previous admission earlier this month. BNP 1281. She was admitted to ICU for further management. Previous studies. CT chest 04/20/2017 IMPRESSION: 1. Cardiomegaly and emphysema. 2. There is a small left pleural effusion with associated atelectasis. This has modestly decreased in size from 03/19/2017. The right pleural effusion has resolved. 3. A 12 mm irregular nodule at the right apex is unchanged from 03/19/2017. While nonspecific, the lack of change is concerning and although this could be on an infectious/inflammatory basis neoplasm is not excluded. 4. There are new patchy/nodular opacities in the left upper lobe as well as patchy groundglass opacities in the right lower lobe. These are also nonspecific and likely on an infectious/inflammatory basis. Clinical correlation will be required. At a minimum, continued CT follow-up of these findings recommended. TTE 04/18/2017 * -- Conclusions -- * Left ventricular systolic function is normal.Ejection Fraction = 55-60%. * There is moderate concentric left ventricular hypertrophy. * The left atrium is mildly dilated. * There is a bioprosthetic aortic valve. * There is mild-moderate collette-prosthetic regurgitation. * There is moderate mitral regurgitation. * Right ventricular systolic pressure is elevated at 30-40mmHg. * Compared to study from 10/24/2016, the bioprosthetic gradients are similar. The degree of periprosthetic regurgitation appears slightly worse. Video swallow: No aspiration identified Pulmonary function studies performed 10/28/2015 Spirometry: FEV1 44% severe obstructive ventilatory disease, no clinically significant reversibility Lung volumes: Signs of hyperinflation with a residual volume of 144% DLCO: 28% with DLCO/VA ratio: 71% Review of Systems Unable to assess Past Medical History Past Medical History: 1. CVA in the past. 2. Fracture of the right humerus. 3. Concussion. 4. Skin cancer. 5. History of Eustachian tube dysfunction. Past Surgical History: 1. Cataract surgery. 2. Cystoscopy. 3. TAVR Family History Heart disease Hypertension Positive for coronary artery disease, cancer and stroke. Social History She is a former smoker. 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 Hx Tobacco Use In Past Year?: No Smoking Status: Former Smoker Marital status: Housing status: lives alone Occupational Status: retired Immunizations History of Influenza Vaccine: No History of Tetanus Vaccine?: utd History of Hepatitis B Vaccine: No History of MDRO History of MDRO: No Allergies Coded Allergies: Clonidine (Verified Allergy, Mild, SHORTNESS OF BREATH, 05/10/17) Iodinated Diagnostic Agents (Verified Allergy, Unknown, "IT JUST AFFECTS ME AND I CAN'T EXPLAIN IT", 05/10/17) Latex1 -Allergic Contact Dermititis (Verified Allergy, Unknown, RASH, ) Penicillins (Verified Allergy, Unknown, UNKNOWN, 05/10/17) Sulfa Antibiotics (Verified Allergy, Unknown, "SWELLING IN MOUTH AND DRIED OUT", 05/10/17) Current Medications Reported Home Medications Medications Dose Route/Sig Max Daily Dose Days Date Category Dose Instructions Klor-Con (Potassium Chloride) 20 Meq Tabcr 20 Meq PO BID 05/10/17 Reported Ventolin Hfa (Albuterol) 200 Puffs/08720 Mcg Aers 1-2 Puffs PO Q4-6 HRSS PRN 05/10/17 Reported Levaquin (Levofloxacin) 750 Mg Tab 750 Mg PO DAILY 10 05/10/17 Reported Mucinex Ext Rel (Guaifenesin) 600 Mg Tabcr 600 Mg PO Q12 7 04/23/17 Rx Carafate (Sucralfate) 1 Gm Tab 1 Gm PO TID 90 04/23/17 Rx Prednisone 10 Mg Tab 10 Mg PO DAILY 03/22/17 Rx Levalbuterol HCl (Levalbuterol) 0.63 Mg/3 Ml Nebu 0.63 Mg INH Q6R 30 03/22/17 Rx Digoxin 0.125 Mg Tab 0.125 Mg PO DAILY@16 30 03/22/17 Rx Lopressor (Metoprolol Tartrate) 25 Mg Tab 12.5 Mg PO BID 30 03/22/17 Rx Multi Complete (Multiple Vitamins W/ Minerals) 1 Cap Cap 1 Cap PO DAILY 03/16/17 Reported Lasix (Furosemide) 40 Mg Tab 40 Mg PO DAILY 03/16/17 Reported Travatan Z (Travoprost) 0.004 % Bassam 1 Drops OP HS 03/16/17 Reported Eliquis (Apixaban) 2.5 Mg Tab 2.5 Mg PO BID 03/16/17 Reported Breo Ellipta (Fluticasone Furoate-Vilanterol) 1 Inh Inh 1 Inha PO DAILY 03/16/17 Reported Xanax (Alprazolam) 0.25 Mg Tab 0.5 Mg PO Q12 PRN 03/16/17 Reported Vitamin D 71587 Unit (Ergocalciferol) 50,000 Unit Cap 50,000 Inter.unit PO WK 10/23/16 Reported wednesdays Docusate Sodium 100 Mg Cap 100 Mg PO TID PRN 10/23/16 Reported Aspirin 81 Mg Tab 81 Mg PO Q24H 10/23/16 Reported Diltiazem HCl ER (Diltiazem HCl) 360 Mg Tabcr 360 Mg PO DAILY 10/23/16 Reported Levothyroxine Sodium 75 Mcg Tab 75 Mcg PO QAM 09/13/16 Reported Oxygen Gas 3-4 Liters NA HS 01/03/16 Reported Physical Physical Exam Vital Signs: Date Time Temp Pulse Resp B/P (MAP) Pulse Ox O2 Delivery O2 Flow Rate FiO2 05/10/17 12:00 37.8 107 15 110/72 (85) 97 Mechanical Ventilator 40 05/10/17 12:00 99 Mechanical Ventilator 40 05/10/17 12:00 40 05/10/17 11:21 40 05/10/17 10:22 115 111/72 05/10/17 10:00 110 16 111/72 (85) 99 Mechanical Ventilator 40 05/10/17 09:42 38.8 101 12 117/61 98 Mechanical Ventilator 05/10/17 09:35 38.8 05/10/17 08:19 40 05/10/17 08:15 101 12 117/61 (79) 93 Mechanical Ventilator 40 05/10/17 08:15 98 Mechanical Ventilator 40 05/10/17 08:15 40 05/10/17 08:13 37.1 91 16 129/84 93 05/10/17 07:47 129/84 05/10/17 07:43 91 05/10/17 07:40 104 16 93 05/10/17 07:35 104 17 93 05/10/17 07:31 154/114 05/10/17 07:30 109 15 93 05/10/17 07:27 100 05/10/17 07:25 94 14 98 05/10/17 07:20 92 17 100 05/10/17 07:16 165/100 05/10/17 07:15 103 17 100 05/10/17 07:10 122 21 100 05/10/17 07:05 104 17 100 05/10/17 07:04 BiPAP 100 05/10/17 07:01 112 18 189/113 100 05/10/17 07:01 100 BiPAP 100 05/10/17 07:01 189/113 05/10/17 07:00 194/112 05/10/17 07:00 107 22 194/112 100 05/10/17 06:59 100 05/10/17 06:55 127 21 95 05/10/17 06:50 114 18 92 05/10/17 06:50 37.1 111 32 206/116 100 BiPAP 100 05/10/17 06:46 197/115 05/10/17 06:46 103 28 197/115 100 05/10/17 06:45 107 28 100 05/10/17 06:34 172/90 05/10/17 06:31 104 0 173/81 99 05/10/17 06:28 199/113 05/10/17 06:16 107 28 100 05/10/17 06:12 208/118 05/10/17 06:03 123 100 100 05/10/17 06:01 112 31 206/119 05/10/17 05:55 108 General Appearance: thin, other (intubated and sedated) Head: NORMOCEPHALIC, ATRAUMATIC Eyes: PERRLA, NO DISCHARGE ENT: other (OGT+) Respiratory: BREATH SOUNDS NORMAL (bronchial breath sound bilaterally) Cardiovasular: irregular rate, abnormal rhythm Abdomen: NON TENDER, NORMAL BOWEL SOUNDS Genitourinary - Female: other (Mejia+) Upper Extremities: NO EDEMA, NO DEFORMITY, NORMAL ROM Lower Extremities: NO EDEMA, NO DEFORMITY, NORMAL ROM Pulses: dorsalis pedis (R) (2+), dorsalis pedis (L) (2+) Neuro: other (sedated) Psychiatric: other (unable to assess) Diagnostics Labs Results Past 24 Hours Test 05/10/17 06:03 05/10/17 06:07 05/10/17 06:18 05/10/17 06:21 Range/Units Arterial Blood pH 7.23 7.35-7.45 Arterial Blood Partial Pressure CO2 73 35-46 mmHg Arterial Blood Partial Pressure O2 218 80-95 mm/Hg Arterial Blood HCO3 30 19-24 mmol/L Arterial Blood Oxygen Saturation 99.5 90-95 % Arterial Blood Base Excess 0.9 -9-1.8 mEq/L Arterial Blood Gas Delivery 100% Onesimo Test POS POS Creatine Kinase MB Ratio 5.9 0-3.0 White Blood Count 23.71 4.8-10.8 K/uL Red Blood Count 4.17 4.2-5.4 M/uL Hemoglobin 13.0 12.0-16.0 g/dL Hematocrit 40.0 37-47 % Mean Corpuscular Volume 95.9 80-100 fL Mean Corpuscular Hemoglobin 31.2 25-34 pg Mean Corpuscular Hemoglobin Concent 32.5 32-36 g/dl Platelet Count 289 130-400 K/uL Mean Platelet Volume 10.2 7.4-10.4 fL Neutrophils (%) (Auto) 82.8 % Lymphocytes (%) (Auto) 10.8 % Monocytes (%) (Auto) 4.2 % Eosinophils (%) (Auto) 0.8 % Basophils (%) (Auto) 0.2 % Neutrophils # (Auto) 19.62 1.4-6.5 K/uL Lymphocytes # (Auto) 2.56 1.2-3.4 K/uL Monocytes # (Auto) 0.99 0.11-0.59 K/uL Eosinophils # (Auto) 0.20 0-0.5 K/uL Basophils # (Auto) 0.05 0-0.2 K/uL RDW Standard Deviation 51.2 36.4-46.3 fL RDW Coefficient of Variation 14.6 11.5-14.5 % Immature Granulocyte % (Auto) 1.2 % Immature Granulocyte # (Auto) 0.29 0.00-0.02 K/uL Sodium Level 134 136-145 mmol/L Potassium Level 4.5 3.5-5.1 mmol/L Chloride Level 99 98-107 mmol/L Carbon Dioxide Level 30 21-32 mmol/L Anion Gap 5.0 3-11 mmol/L Blood Urea Nitrogen 18 7-18 mg/dl Creatinine 0.90 0.60-1.20 mg/dl Estimated GFR () 67.1 Estimated GFR (Non- 57.9 BUN/Creatinine Ratio 19.5 10-20 Random Glucose 248 70-99 mg/dl Calcium Level 8.7 8.5-10.1 mg/dl Total Bilirubin 0.5 0.2-1 mg/dl Aspartate Amino Transf (AST/SGOT) 32 15-37 U/L Alanine Aminotransferase (ALT/SGPT) 29 12-78 U/L Alkaline Phosphatase 81 45-117 U/L Total Creatine Kinase 39 26-192 U/L Creatine Kinase MB 2.3 0.5-3.6 ng/ml Troponin I 0.065 0-0.045 ng/ml Pro-B-Type Natriuretic Peptide 1281 0-1800 pg/ml Total Protein 6.9 6.4-8.2 gm/dl Albumin 3.5 3.4-5.0 gm/dl Globulin 3.4 2.5-4.0 gm/dl Albumin/Globulin Ratio 1.0 0.9-2 Bedside Lactic Acid Venous 1.77 0.90-1.70 mmol/L Test 05/10/17 06:30 05/10/17 08:47 05/10/17 09:00 05/10/17 09:10 Range/Units Prothrombin Time 11.2 9.0-12.0 SECONDS Prothromb Time International Ratio 1.1 0.9-1.1 Activated Partial Thromboplast Time 24.7 21.0-31.0 SECONDS Partial Thromboplastin Ratio 1.0 Procalcitonin 1.41 0-0.5 ng/ml Digoxin Level 1.5 0.8-2.0 ng/ml Urine Color DK YELLOW Urine Appearance CLEAR CLEAR Urine pH 5.0 4.5-7.5 Urine Specific [place] 1.024 1.000-1.030 Urine Protein 1+ NEG Urine Glucose (UA) NEG NEG Urine Ketones NEG NEG Urine Occult Blood NEG NEG Urine Nitrite NEG NEG Urine Bilirubin NEG NEG Urine Urobilinogen NEG NEG Urine Leukocyte Esterase NEG NEG Urine WBC (Auto) 1-5 0-5 /hpf Urine RBC (Auto) 0-4 0-4 /hpf Urine Hyaline Casts (Auto) 5-10 0-5 /lpf Urine Epithelial Cells (Auto) 20-30 0-5 /lpf Urine Bacteria (Auto) NEG NEG Urine Pathogenic Casts 0 /lpf Urine Mucus PRESENT NONE PRSENT Bedside Glucose 273 70-90 mg/dl Test 05/10/17 10:28 05/10/17 13:12 05/10/17 13:48 Range/Units Blood Gas Sample Site L Brachial Bedside Blood Gas pH (LAB) 7.47 7.35-7.45 Bedside Blood Gas pCO2 (LAB) 39 35-46 mmHg Bedside Blood Gas pO2 (LAB) 108 80-95 mmHg Bedside Blood Gas HCO3 (LAB) 29 19-24 meq/L Bedside Blood Gas Total CO2 30 24-31 mEq/l Bedside Blood Gas Base Excess (LAB) 5.0 -9-1.8 meq/L Bedside Blood Gas O2 Saturation 99.0 90-95 % Onesimo Test NA Oxygen Delivery Device Ventilator Bedside Oxygen Rate (breaths/min) 12 Blood Gas Minute Ventilation 8.5 Bedside FiO2 40 % Blood Gas Tidal Volume 500 Blood Gas PEEP 10 Bedside Glucose 153 166 70-90 mg/dl Microbiology Results 05/10/17 Blood Culture, Received Pending 05/10/17 Blood Culture, Received Pending 05/10/17 MRSA DNA Surveillance Screen - Final, Complete Specimen Negative for MRSA by DNA Probe Diagnostic Radiology CHEST ONE VIEW PORTABLE HISTORY: 87 years-old Female Sepsis acute sepsis COMPARISON: Chest radiograph 04/17/2017, chest CT 04/20/2017 TECHNIQUE: Portable AP view of the chest FINDINGS: Cardiac silhouette is mildly enlarged, unchanged. Atherosclerosis of the aorta. Prosthetic aortic valve. Previously described spiculated nodule of the right lung apex is not definitively seen. Emphysematous changes redemonstrated. Mild pulmonary vascular congestion with background interstitial coarsening hazy perihilar and bibasilar alveolar opacities. Small left greater than right pleural effusions. Trace fluid is noted tracking along the minor fissure. Bones of the chest appear grossly intact. IMPRESSION: 1. Cardiomegaly and mild pulmonary vascular congestion with bilateral mixed interstitial and alveolar opacities within a perihilar and bibasilar predominant distribution suggesting pulmonary edema or pneumonia. 2. Emphysema. Impression Assessment and Plan Acute on chronic hypoxemic hypercapnic respiratory failure Pulmonary edema Hypertensive emergency Diastolic congestive heart failure Severe COPD on LTOT on chronic steroids Elevated right heart pressure Right upper lobe 1.2 cm nodule Atrial fibrillation on Eliquis Aortic stenosis s/p TAVR Ms. Lane has had a complicated course over the last several months with progressive decline in her respiratory status. She is well known to pulmonary service and is a patient of Dr. Rucker. She now presents with acute on chronic hypoxic respiratory failure likely secondary to acute on chronic diastolic decompensated heart failure, and pulmonary edema secondary to hypertensive emergency. CXR also shows increased interstitial and alveolar opacities, therefore we should continue to treat her for diastolic CHF and possible pneumonia,as her WBC was significantly elevated on admission. Recommendations Continue with mechanical ventilation per management of ICU. Daily sedation vacation and weaning trials. Once she passes weaning trials she should be extubated directly to BIPAP. Continue with broads spectrum antibiotics. Obtain tracheal aspirate. Follow up procalcitonin. Taper solumedrol as tolerated. Recommend albuterol/ ipratropium prn. Continue with BP control Continue with diuresis as kidney function tolerates. Right upper lobe nodule 1.2 cm, spiculated and unchanged in last few CT chest. She should have further surveillance and work up per Dr. Rucker as outpatient. Continue with Eliquis for anticoagulation Her overall prognosis is poor. Recommend speaking with son to address goals of care. I appreciate the consult.
[2017-05-10] MEDS ORDERED: CEFEPIME CONSULT ACTIVE PRN (15:45)
--- NOTE | 2017-05-10 15:47 | History and Physical ---
History & Physical Date & Time of Service: May 10, 2017 at 15:47 Chief Complaint: Acute Respiratory Failure Primary Care Physician: Sheila Hurtado M.D. History of Present Illness Source: clinic records, hospital records Ms Lane is an 87 year old female with PMH of severe COPD on LTOT of 3-4 L/min, diastolic CHF, aortic stenosis s/p TAVR, atrial fibrillation on Eliquis who presents via EMS with acute shortness of breath that started one hour prior to admission. Patient is already intubated when examined at 8:00. Patient appears to be coming in the hospital for multiple admissions for the same issue. If appears that when she arrived in the ER, she was hypertensive with systolic over 200, tachycardic, respiration rate up to 30. Patient failed BIPAP and needed to be intubated for respiratory distress. Past Medical/Surgical History Medical Problems: (1) Anxiety Status: Chronic (2) Asthma Status: Chronic (3) Atrial fibrillation with RVR Status: Chronic (4) Back pain Status: Resolved (5) Back pain Status: Resolved (6) Benign hypertension Status: Chronic (7) Bronchitis Status: Resolved (8) Cataract Status: Chronic (9) Critical stenosis of aortic valve Status: Resolved (10) Dehydration Status: Resolved (11) Disorder of gallbladder Status: Chronic (12) Dyspnea Status: Chronic (13) Fall Status: Resolved (14) Humeral head fracture Status: Resolved (15) Hypoxia Status: Chronic (16) Kidney disease Status: Chronic (17) melanoma Status: Resolved (18) Neck pain Status: Resolved (19) Pneumonia Status: Resolved (20) Recurrent falls Status: Chronic (21) Right humeral fracture Status: Resolved (22) SOB (shortness of breath) Status: Chronic Family History Heart disease Hypertension Social History Smoking Status: Former Smoker Drug Use: none Marital Status: Housing status: lives alone Occupational Status: retired Immunizations History of Influenza Vaccine: No History of Tetanus Vaccine?: utd History of Pneumococcal: Unknown History of Hepatitis B Vaccine: No Multi-Drug Resistant Organisms History of MDRO: No Allergies Coded Allergies: Clonidine (Verified Allergy, Mild, SHORTNESS OF BREATH, 05/10/17) Iodinated Diagnostic Agents (Verified Allergy, Unknown, "IT JUST AFFECTS ME AND I CAN'T EXPLAIN IT", 05/10/17) Latex1 -Allergic Contact Dermititis (Verified Allergy, Unknown, RASH, ) Penicillins (Verified Allergy, Unknown, UNKNOWN, 05/10/17) Sulfa Antibiotics (Verified Allergy, Unknown, "SWELLING IN MOUTH AND DRIED OUT", 05/10/17) Home Medications Scheduled Apixaban (Eliquis), 2.5 MG PO BID Aspirin (Aspirin), 81 MG PO Q24H Digoxin (Digoxin), 0.125 MG PO DAILY@16 Diltiazem HCl (Diltiazem HCl ER), 360 MG PO DAILY Ergocalciferol (Vitamin D 34021 Unit), 50,000 INTER.UNIT PO WK Fluticasone Furoate-Vilanterol (Breo Ellipta), 1 INHA PO DAILY Furosemide (Lasix), 40 MG PO DAILY Guaifenesin Ext Rel (Mucinex Ext Rel), 600 MG PO Q12 Home O2 Therapy (Oxygen), 3-4 LITERS NA HS Levalbuterol (Levalbuterol HCl), 0.63 MG INH Q6R Levofloxacin (Levaquin), 750 MG PO DAILY Levothyroxine Sodium (Levothyroxine Sodium), 75 MCG PO QAM Metoprolol Tartrate (Lopressor), 12.5 MG PO BID Multiple Vitamins W/ Minerals (Multi Complete), 1 CAP PO DAILY Potassium Ext Rel (Klor-Con), 20 MEQ PO BID Prednisone (Prednisone), 10 MG PO DAILY Sucralfate (Carafate), 1 GM PO TID Travoprost (Travatan Z), 1 DROPS OP HS Scheduled PRN Albuterol Hfa (Ventolin Hfa), 1-2 PUFFS PO q4-6 hrss PRN for SOB/Wheezing Alprazolam (Xanax), 0.5 MG PO Q12 PRN for Anxiety Docusate Sodium (Docusate Sodium), 100 MG PO TID PRN for Constipation Review of Systems unable to complete ROS as patient is already intubated. Physical Exam Vital Signs Date Time Temp Pulse Resp B/P (MAP) Pulse Ox O2 Delivery O2 Flow Rate FiO2 05/10/17 14:22 40 05/10/17 14:00 100 16 115/70 (85) 98 Mechanical Ventilator 40 05/10/17 12:00 37.8 107 15 110/72 (85) 97 Mechanical Ventilator 40 05/10/17 12:00 99 Mechanical Ventilator 40 05/10/17 12:00 40 05/10/17 11:21 40 05/10/17 10:22 115 111/72 05/10/17 10:00 110 16 111/72 (85) 99 Mechanical Ventilator 40 05/10/17 09:42 38.8 101 12 117/61 98 Mechanical Ventilator 05/10/17 09:35 38.8 05/10/17 08:19 40 05/10/17 08:15 101 12 117/61 (79) 93 Mechanical Ventilator 40 05/10/17 08:15 98 Mechanical Ventilator 40 05/10/17 08:15 40 05/10/17 08:13 37.1 91 16 129/84 93 05/10/17 07:47 129/84 05/10/17 07:43 91 05/10/17 07:40 104 16 93 05/10/17 07:35 104 17 93 05/10/17 07:31 154/114 05/10/17 07:30 109 15 93 05/10/17 07:27 100 05/10/17 07:25 94 14 98 05/10/17 07:20 92 17 100 05/10/17 07:16 165/100 05/10/17 07:15 103 17 100 05/10/17 07:10 122 21 100 05/10/17 07:05 104 17 100 05/10/17 07:04 BiPAP 100 05/10/17 07:01 112 18 189/113 100 05/10/17 07:01 100 BiPAP 100 05/10/17 07:01 189/113 05/10/17 07:00 194/112 05/10/17 07:00 107 22 194/112 100 05/10/17 06:59 100 05/10/17 06:55 127 21 95 05/10/17 06:50 114 18 92 05/10/17 06:50 37.1 111 32 206/116 100 BiPAP 100 05/10/17 06:46 197/115 05/10/17 06:46 103 28 197/115 100 05/10/17 06:45 107 28 100 05/10/17 06:34 172/90 05/10/17 06:31 104 0 173/81 99 05/10/17 06:28 199/113 05/10/17 06:16 107 28 100 05/10/17 06:12 208/118 05/10/17 06:03 123 100 100 05/10/17 06:01 112 31 206/119 05/10/17 05:55 108 General Appearance: + pertinent finding (sedated and intubated on mechanical ventilator) Head: normocephalic, atraumatic Eyes: normal inspection, PERRL ENT: normal ENT inspection Neck: supple, no adenopathy Respiratory/Chest: chest non-tender, + decreased breath sounds Cardiovascular: no murmur, + irregularly irregular Abdomen/GI: normal bowel sounds, non tender, soft Extremities/Musculoskelatal: normal inspection, no pedal edema Neurologic/Psych: + pertinent finding (sedated) Lymphatic: no adenopathy Diagnostics Laboratory Results Results Past 24 Hours Test 05/10/17 06:03 05/10/17 06:07 05/10/17 06:18 05/10/17 06:21 Range/Units Arterial Blood pH 7.23 7.35-7.45 Arterial Blood Partial Pressure CO2 73 35-46 mmHg Arterial Blood Partial Pressure O2 218 80-95 mm/Hg Arterial Blood HCO3 30 19-24 mmol/L Arterial Blood Oxygen Saturation 99.5 90-95 % Arterial Blood Base Excess 0.9 -9-1.8 mEq/L Arterial Blood Gas Delivery 100% Onesimo Test POS POS Creatine Kinase MB Ratio 5.9 0-3.0 White Blood Count 23.71 4.8-10.8 K/uL Red Blood Count 4.17 4.2-5.4 M/uL Hemoglobin 13.0 12.0-16.0 g/dL Hematocrit 40.0 37-47 % Mean Corpuscular Volume 95.9 80-100 fL Mean Corpuscular Hemoglobin 31.2 25-34 pg Mean Corpuscular Hemoglobin Concent 32.5 32-36 g/dl Platelet Count 289 130-400 K/uL Mean Platelet Volume 10.2 7.4-10.4 fL Neutrophils (%) (Auto) 82.8 % Lymphocytes (%) (Auto) 10.8 % Monocytes (%) (Auto) 4.2 % Eosinophils (%) (Auto) 0.8 % Basophils (%) (Auto) 0.2 % Neutrophils # (Auto) 19.62 1.4-6.5 K/uL Lymphocytes # (Auto) 2.56 1.2-3.4 K/uL Monocytes # (Auto) 0.99 0.11-0.59 K/uL Eosinophils # (Auto) 0.20 0-0.5 K/uL Basophils # (Auto) 0.05 0-0.2 K/uL RDW Standard Deviation 51.2 36.4-46.3 fL RDW Coefficient of Variation 14.6 11.5-14.5 % Immature Granulocyte % (Auto) 1.2 % Immature Granulocyte # (Auto) 0.29 0.00-0.02 K/uL Sodium Level 134 136-145 mmol/L Potassium Level 4.5 3.5-5.1 mmol/L Chloride Level 99 98-107 mmol/L Carbon Dioxide Level 30 21-32 mmol/L Anion Gap 5.0 3-11 mmol/L Blood Urea Nitrogen 18 7-18 mg/dl Creatinine 0.90 0.60-1.20 mg/dl Estimated GFR () 67.1 Estimated GFR (Non- 57.9 BUN/Creatinine Ratio 19.5 10-20 Random Glucose 248 70-99 mg/dl Calcium Level 8.7 8.5-10.1 mg/dl Total Bilirubin 0.5 0.2-1 mg/dl Aspartate Amino Transf (AST/SGOT) 32 15-37 U/L Alanine Aminotransferase (ALT/SGPT) 29 12-78 U/L Alkaline Phosphatase 81 45-117 U/L Total Creatine Kinase 39 26-192 U/L Creatine Kinase MB 2.3 0.5-3.6 ng/ml Troponin I 0.065 0-0.045 ng/ml Pro-B-Type Natriuretic Peptide 1281 0-1800 pg/ml Total Protein 6.9 6.4-8.2 gm/dl Albumin 3.5 3.4-5.0 gm/dl Globulin 3.4 2.5-4.0 gm/dl Albumin/Globulin Ratio 1.0 0.9-2 Bedside Lactic Acid Venous 1.77 0.90-1.70 mmol/L Test 05/10/17 06:30 05/10/17 08:47 05/10/17 09:00 05/10/17 09:10 Range/Units Prothrombin Time 11.2 9.0-12.0 SECONDS Prothromb Time International Ratio 1.1 0.9-1.1 Activated Partial Thromboplast Time 24.7 21.0-31.0 SECONDS Partial Thromboplastin Ratio 1.0 Procalcitonin 1.41 0-0.5 ng/ml Digoxin Level 1.5 0.8-2.0 ng/ml Urine Color DK YELLOW Urine Appearance CLEAR CLEAR Urine pH 5.0 4.5-7.5 Urine Specific [place] 1.024 1.000-1.030 Urine Protein 1+ NEG Urine Glucose (UA) NEG NEG Urine Ketones NEG NEG Urine Occult Blood NEG NEG Urine Nitrite NEG NEG Urine Bilirubin NEG NEG Urine Urobilinogen NEG NEG Urine Leukocyte Esterase NEG NEG Urine WBC (Auto) 1-5 0-5 /hpf Urine RBC (Auto) 0-4 0-4 /hpf Urine Hyaline Casts (Auto) 5-10 0-5 /lpf Urine Epithelial Cells (Auto) 20-30 0-5 /lpf Urine Bacteria (Auto) NEG NEG Urine Pathogenic Casts 0 /lpf Urine Mucus PRESENT NONE PRSENT Bedside Glucose 273 70-90 mg/dl Test 05/10/17 10:28 05/10/17 13:12 05/10/17 13:48 05/10/17 15:07 Range/Units Blood Gas Sample Site L Brachial Bedside Blood Gas pH (LAB) 7.47 7.35-7.45 Bedside Blood Gas pCO2 (LAB) 39 35-46 mmHg Bedside Blood Gas pO2 (LAB) 108 80-95 mmHg Bedside Blood Gas HCO3 (LAB) 29 19-24 meq/L Bedside Blood Gas Total CO2 30 24-31 mEq/l Bedside Blood Gas Base Excess (LAB) 5.0 -9-1.8 meq/L Bedside Blood Gas O2 Saturation 99.0 90-95 % Onesimo Test NA Oxygen Delivery Device Ventilator Bedside Oxygen Rate (breaths/min) 12 Blood Gas Minute Ventilation 8.5 Bedside FiO2 40 % Blood Gas Tidal Volume 500 Blood Gas PEEP 10 Bedside Glucose 153 166 185 70-90 mg/dl Test 05/10/17 15:37 Range/Units Creatine Kinase MB Ratio 0-3.0 Microbiology Results 05/10/17 Blood Culture, Received Pending 05/10/17 Blood Culture, Received Pending 05/10/17 MRSA DNA Surveillance Screen - Final, Complete Specimen Negative for MRSA by DNA Probe Diagnostic Radiology CHEST ONE VIEW PORTABLE HISTORY: 87 years-old Female Sepsis acute sepsis COMPARISON: Chest radiograph 04/17/2017, chest CT 04/20/2017 TECHNIQUE: Portable AP view of the chest FINDINGS: Cardiac silhouette is mildly enlarged, unchanged. Atherosclerosis of the aorta. Prosthetic aortic valve. Previously described spiculated nodule of the right lung apex is not definitively seen. Emphysematous changes redemonstrated. Mild pulmonary vascular congestion with background interstitial coarsening hazy perihilar and bibasilar alveolar opacities. Small left greater than right pleural effusions. Trace fluid is noted tracking along the minor fissure. Bones of the chest appear grossly intact. IMPRESSION: 1. Cardiomegaly and mild pulmonary vascular congestion with bilateral mixed interstitial and alveolar opacities within a perihilar and bibasilar predominant distribution suggesting pulmonary edema or pneumonia. 2. Emphysema. The above report was generated using voice recognition software. It may contain grammatical, syntax or spelling errors. Electronically signed by: Camden Avendano M.D. 05/10/2017 6:35 AM Impression Assessment and Plan 87 yo female known for multiple admissions for her severe COPD is admitted with ACUTE HYPOXIC RESPIRATORY FAILURE Patient is currently intubated On vancomycin and doxycycline On bronchodilators Weaning trial per protocol Previous admissions patient was DNR however no POST form is noted. ICU team is trying to contact son. Continue management in ICU H/O of CHF Probable CHF exacerbation As patient has signs of pulmonary edema Will have patient on Furosemide and monitor her Is and Os Critical care team managing. Possible HCAP on cefepime, doxy, vanco DVT PROPHYLAXIS Eliquis held in the event that procedures are needed TEDs / SCDs ordered Heparin 5000 units subcutaneous every eight hours I spent 30 minutes seeing patient throughout the day and reviewing chart and orders. I also tried calling son with no avail. Level of Care Critical Care Advanced Directives Existing Living Will: No Existing Power of Manager Creative: No Resuscitation Status FULL RESUSCITATION VTE Prophylaxis VTE Risk Assessment Done? Y/N: Yes Risk Level: Moderate Note Total Time: Critical Care 30 - 74 minutes
[2017-05-10] MEDS: FENTANYL CITRATE INJ 50 MCG/1 ML 2 ML VIAL IV PRN (15:59)
[2017-05-10] MEDS ORDERED: DIGOXIN IV 125 MCG in SYRINGE 9.5 ML IV ONE (16:30)
[2017-05-10 16:31] LABS: CKMB 2.3 ng/ml (0.5-3.6)
--- NOTE | 2017-05-10 16:35 | NUR ---
A: Patient remains in AFIB with rate 120s, order obtained for IV digoxin and patient will also receive another 2.5mg IV lopressor later this afternoon. Patient is arousable and seemingly more uncomfortable, opening eyes frequently and grimacing-medicated with 50mcg fentanyl. BP stable.
--- NOTE | 2017-05-10 17:50 | NUR ---
A: Insulin gtt discontinued at this time per order. Patient remains sedated with intermittent versed. VSS.
[2017-05-10] MEDS ORDERED: DC IV INSULIN INFUSION ONE (18:00)
[2017-05-10] MEDS ORDERED: DC IV INSULIN INFUSION SCH (18:00)
--- NOTE | 2017-05-10 19:58 | NUR ---
A/ID: PT RESTING IN BED INTUBATED WITH INTERMITTENT SEDATION. PT WILL OPEN EYES TO VERBAL RESPONSE. DOES NOT FOLLOW COMMANDS. ASSESSMENT COMPLETED SEE DOCUMENTATION FOR DETAILS. PT GIVEN CHG BATH WITH LINEN CHANGE, MATSON CARE, AND ORAL CARE. PT TURNED AND REPOSITIONED. PT INTUBATED WITH 7.5 ETT NOTED TO BE 22CM AT LIP ON AC WITH RR 12, FIO2 40% TV 500 AND PEEP OF 5. OGT INTACT NOTED TO BE 57 CM AT LIP DRAINING GREEN/YELLOW LIQUID ON LOW INTERMITTENT SUCTION. MATSON PATENT. SCD INTACT. LEGS ELEVATED ON PILLOW. BILATERAL WRIST RESTRAINTS INTACT. PINK PREVENTION FOAM DRESSING INTACT TO BILATERAL HEELS AND SACCUM. CALL GUERRA WITHIN REACH. PENDING DISCHARGE.
[2017-05-10] MEDS: DOXYCYCLINE HYCLATE 100 MG in DEXTROSE 5% 100ML IV SCH (21:02)
[2017-05-10] MEDS: CEFEPIME IV 2,000 MG in SYRINGE 7.5 ML IV SCH (21:03)
--- NOTE | 2017-05-10 21:58 | NUR ---
A: NO ACUTE ASSESSMENT CHANGES. PT TURNED AND REPOSITIONED.
--- NOTE | 2017-05-10 22:01 | NUR ---
A: MADE JACK HILLMAN AWARE OF PT URINE OUTPUT, SEE I&O FOR DETAILS. NO NEW ORDERS GIVEN AT THIS TIME.
--- NOTE | 2017-05-10 22:43 | NUR ---
A: RESPIRATORY MADE RN AWARE PT WAS DECREASED TO 30% FIO2 ON MECHANICAL VENTILATOR.
[2017-05-10 23:35] LABS: CKMB 1.6 ng/ml (0.5-3.6)
--- NOTE | 2017-05-10 23:57 | NUR ---
A: NO ACUTE ASSESSMENT CHANGES. PT TURNED AND REPOSITIONED. ORAL CARE AND SUCTIONING PROVIDED. SCD INTACT. MATSON PATIENT. RESPONDS TO VERBAL STIMULI. CALL GUERRA WITHIN REACH. BILATERAL WRIST RESTRAINTS REMAIN INTACT.
[2017-05-11] VITALS (18 sets, daily range): BP systolic 82–154; BP diastolic 50–82; PULSE 55–93; TEMP 36.4–37.7; O2SAT 95–98
[2017-05-11] MEDS: MIDAZOLAM HCL 1 MG/ML 2ML VIAL IV PRN ×2 (00:12→03:31)
[2017-05-11] MEDS: FENTANYL CITRATE INJ 50 MCG/1 ML 2 ML VIAL IV PRN ×4 (00:14→20:29)
[2017-05-11] MEDS: METHYLPREDNISOLONE IV 40 MG in SYRINGE 0 ML IV SCH ×3 (01:40→20:31)
[2017-05-11] MEDS: HEPARIN SOD 5000 UNIT/0.5 ML CARP SQ SCH ×2 (01:41→09:12)
--- NOTE | 2017-05-11 02:00 | NUR ---
A: NO ACUTE ASSESSMENT CHANGED. PT WITH INTERMITTENT SEDATION. PT TURNED AND REPOSITIONED. ORAL CARE PROVIDED. PT SUCTIONED. SCD AND MATSON INTACT.
[2017-05-11] MEDS: INSULIN ASPART 100 UNITS/ML 3 ML PEN SC SCH ×4 (03:31→18:00)
--- NOTE | 2017-05-11 04:00 | NUR ---
A: NO ACUTE ASSESSMENT CHANGES NOTED. PT REMAINS WITH INTERMITTENT SEDATION. WILL OPEN EYES TO NAME. DOES NOT FOLLOW COMMANDS. PT TURNED AND REPOSITIONED. ORAL CARE PROVIDED. LEGS ELEVATED ON A PILLOW. SCD INTACT. MATSON PATENT. CALL GUERRA WITHIN REACH.
--- NOTE | 2017-05-11 05:19 | NUR ---
A: RESPIRATORY IN ROOM AT THIS TIME TO ATTEMPT CPAP TRIAL.
--- NOTE | 2017-05-11 05:20 | NUR ---
Attempted spontaneous breathing trial at this time. Started at pressure support of five, increasing in increments until pressure support of 12. Patient tidal volumes were 200-250 mL despite increasing pressure support. Respiratory rate increased to 36 by 0525. Rapid shallow breathing index 125. Returned patient to AC settings at 0526.
--- NOTE | 2017-05-11 05:27 | NUR ---
A: PT FAILED CPAP TRIAL PER RESPIRATORY STANDARDS.
[2017-05-11 05:40] LABS: HEMATOCRIT 36.4 % (37-47); HEMOGLOBIN 11.7 g/dL (12.0-16.0); MEAN CELL VOLUME 94.3 fL (80-100); MEAN CORPUSCULAR HEMOGLOBIN 30.3 pg (25-34); MEAN CORPUSCULAR HGB CONC 32.1 g/dl (32-36); MEAN PLATELET VOLUME 10.4 fL (7.4-10.4); PLATELET COUNT 170 K/uL (130-400); RED CELL DISTRIBUTION WIDTH CV 14.7 % (11.5-14.5); RED CELL DISTRIBUTION WIDTH SD 49.9 fL (36.4-46.3); WHITE BLOOD COUNT 12.36 K/uL (4.8-10.8)
[2017-05-11 05:41] LABS: BASO % 0.1 %; BASO ABS # 0.01 K/uL (0-0.2); IG# 0.05 K/uL (0.00-0.02); LYMPH % 3.4 %; LYMPH ABS # 0.42 K/uL (1.2-3.4); MONO % 4.1 %; MONO ABS # 0.51 K/uL (0.11-0.59); NEUT ABS # 11.37 K/uL (1.4-6.5)
[2017-05-11] MEDS: CEFEPIME IV 2,000 MG in SYRINGE 7.5 ML IV SCH ×2 (05:48→18:31)
[2017-05-11 05:51] LABS: CALCIUM 8.7 mg/dl (8.5-10.1); CREATININE 0.86 mg/dl (0.60-1.20)
[2017-05-11] MEDS: METOPROLOL TARTRATE 1 MG/ML VIAL IV. SCH ×4 (05:51→23:55)
[2017-05-11 05:52] LABS: PHOSPHORUS 3.8 mg/dl (2.5-4.9)
--- NOTE | 2017-05-11 06:05 | NUR ---
A: MADE JACK HILLMAN AWARE OF PT URINE OUTPUT AND BUN. SEE I&O AND LABS FOR DETAILS. NO NEW ORDERS GIVEN AT THIS TIME, MD TO BE UP TO UNIT SHORTLY.
[2017-05-11 06:38] LABS: HEMOGLOBIN A1C 5.9 % (4.5-5.6)
--- NOTE | 2017-05-11 07:03 | DIAGNOSTIC IMAGING REPORT ---
CHEST ONE VIEW PORTABLE HISTORY: 87 years-old Female Respiratory Failure acute respiratory failure COMPARISON: Chest radiograph 05/10/2017 TECHNIQUE: Portable AP view of the chest FINDINGS: Cardiac silhouette is within normal limits. Atherosclerosis of the aorta. Prosthetic aortic valve. Endotracheal tube overlies the midline, 3.3 cm superior to the irene. Enteric tube courses below the diaphragm outside the [id number] towards the left upper abdomen. Mild pulmonary vascular congestion with decreased amount of interstitial coarsening and improved aeration of the bilateral lung bases with persistent right or left bibasilar opacities. There is no pneumothorax or large pleural effusion. Bones of the chest appear grossly intact. IMPRESSION: 1. Endotracheal tube overlies the midline, 3.3 cm superior to the irene. 2. Improved pulmonary edema. The above report was generated using voice recognition software. It may contain grammatical, syntax or spelling errors. Electronically signed by: Camden Avendano M.D. 05/11/2017 7:02 AM Dictated Date/Time: 05/11/2017 7:00 AM
--- NOTE | 2017-05-11 08:00 | NUR ---
A/ID: Patient assessment complete, see EMR. Patient awake and alert, follows with eyes and nods head. Patient is severely hard of hearing, making assessment of orientation difficult. Patient does seem to be able to read large print writing and makes an effort to write in response but most of the writing is nearly impossible to read. A-fib on leaflet distributor, rate controlled. Vital signs stable, see EMR. Patient is intubated and mechanically ventilated. Failed weaning trial this morning, RR increased to the 30s/40s. Patient repositioned in bed, mouth care provided. Call mehta within reach, will continue to monitor closely.
[2017-05-11] MEDS: DIGOXIN IV 125 MCG in SYRINGE 9.5 ML IV SCH (08:01)
[2017-05-11] MEDS: FUROSEMIDE INJ 40 MG in SYRINGE 0 ML IV SCH (08:02)
[2017-05-11] MEDS: LANSOPRAZOLE SOLUTAB 30 MG PO SCH (08:02)
[2017-05-11] MEDS: DOXYCYCLINE HYCLATE 100 MG in DEXTROSE 5% 100ML IV SCH ×2 (08:02→20:31)
--- NOTE | 2017-05-11 09:01 | Pharmacy Progress Note ---
Glycemic Control Progress Note Date of Service May 11, 2017. Scope Glycemic Pharmacist consulted for glycemic control to write orders per [facility] inpatient glycemic control protocol. Objective Accuchecks BSG (last 24hrs): Test 05/10/17 09:10 05/10/17 13:12 05/10/17 13:48 05/10/17 15:07 Bedside Glucose 273 mg/dl (70-90) 153 mg/dl (70-90) 166 mg/dl (70-90) 185 mg/dl (70-90) Test 05/10/17 16:05 05/10/17 16:07 05/10/17 17:05 05/10/17 19:46 Bedside Glucose 212 mg/dl (70-90) 192 mg/dl (70-90) 207 mg/dl (70-90) 167 mg/dl (70-90) Test 05/10/17 23:26 05/11/17 03:24 05/11/17 05:12 05/11/17 07:49 Bedside Glucose 209 mg/dl (70-90) 154 mg/dl (70-90) 189 mg/dl (70-90) Random Glucose 148 mg/dl (70-99) HbA1c: Test 05/11/17 05:12 Hemoglobin A1c 5.9 % (4.5-5.6) H Recent Pertinent Medications Outpatient Anti-diabetic Regimen: * None * A1c. 5.9% on 05/11/17 The patient is currently receiving: * Lantus 8 units SC x1 05/10 @ 1200 * Correctional Insulin with NOVOLOG per scale Q4hrs while NPO * Goal Range: Low 140 mg/dL - High 180 mg/dL * Correction Factor: 40 mg/dL/unit * Nutritional / Prandial insulin per carb ratio of 1 unit per 13 grams CHO consumed Risk Factors for Insulin Resistance: * Steroids: Methylprednisolone 40 mg IV q8h * Infection: HAP * IVP: Precedex drip * Diet: NPO * Mechanical Ventilation: *YES* Outpatient Anti-Diabetic Meds None Assessment & Plan ASSESSMENT: 05/10/17 * 87 yo F admitted with acute respiratory failure, being treated for HAP. * Previous admission 2-3 weeks ago - patient required no insulin during this ~4 day stay and random AM BSG's all <120 mg/dL, a few < 100 mg/dL. * Significantly more stressors this admission, causing hyperglycemia * Patient may not be diabetic at baseline but has prednisone 10 mg daily listed as home med (increases risk of hyperglycemia). A1c on order for tomorrow. * BSG 273 mg/dL. Will initiate insulin gtt for BSG > 220 mg/dL in ICU patient. Do not anticipate this will need to be prolonged therapy. Likely OK to discontinue soon. * Will give very small dose Lantus (weight-based stress of 1 @ 80% reduction for NPO status) 2nd ICU stress and to help ease transition off of insulin drip * Will start Novolog at ~ weight-based stress of 2 after insulin gtt turns off 05/11/17 * Insulin gtt off since 1800 yesterday. BSG's ranging 144-209 mg/dL since then * BSG 189 mg/dL this AM - will continue Lantus but at slightly reduced dose * OK to change Novolog checks from q4h to q6h * Will decrease goal range (to provide more Novolog if BSG's 160-180 mg/dL) PLAN FOR INPATIENT GLYCEMIC CONTROL: * Lantus SC qAM based on BSG * 0 units for BSG < 140 mg/dL * 5 units for BSG >= 140 mg/dL * Correctional Insulin with NOVOLOG per scale Q6hrs while NPO * Decrease Goal Range: Low 120 mg/dL - High 160 mg/dL * Correction Factor: 40 mg/dL/unit * Nutritional / Prandial insulin per carb ratio of 1 unit per 13 grams CHO consumed * Please note that the plan above was derived based on current level of insulin resistance and hospital stress. These recommendations are appropriate for inpatient admission only. Plan of care upon discharge will need to be reassessed to avoid potential outpatient hypo/hyperglycemia. Thank you.
[2017-05-11] MEDS: LEVOTHYROXINE SODIUM INJ 37.5 MCG in SYRINGE 0 ML IV SCH (09:08)
[2017-05-11] MEDS: INSULIN GLARGINE SOLOSTAR 100 UNITS/ML 3 ML PEN SC SCH (09:12)
[2017-05-11] MEDS: DexMEDEtomidine HCL IV 200 MCG in SODIUM CHLORIDE 0.9% 50ML 48 ML IV PRN ×2 (09:22→15:07)
--- NOTE | 2017-05-11 10:00 | NUR ---
A: Patient started on Precedex drip at 5.2 ml/hr. Patient medicated with Fentanyl for pain, see eMAR. Patient resting in bed at this time with eyes closed. No s/s distress. Vital signs stable. Will continue to monitor closely and anticipate needs.
--- NOTE | 2017-05-11 10:09 | NUR ---
Case Management- Patient is not able to answer questions due to intubation. Attempted to call amadou Beltrán to obtain information [facility] [place] [facility] From previous history she has waiver services through [employer] did leave a message with janes from [facility]. From previous record she lives alone she has caregivers coming in 3-4 times per week [place] that primarily clean provide transportation. She uses a walker for ambulation she uses home o2 through [facility] at 3-4l via [place]. Unable to discuss plans at this time due to intubation. CM following Addendum: 05/11/17 at 1559 by Luz Duran SERV patients son cordell called to tell me we have inaccurate phone number listed number I called was for his his number is [phone]. changed in system transferred him down to speak with skip weeks pa-c
--- NOTE | 2017-05-11 10:10 | Critical Care Progress Note ---
Critical Care Progress Note Date of Service May 11, 2017. ICU Day ICU Day Number: [address] Thompson Subjective Patient did not successfully pass weaning trial this morning as she become extremely tachypneic and anxious. She has been changed from AC to PS and we will titrate Objective GENERAL : Moderate distress EYES: No icterus, gaze conjugate NOSE: No evidence of epistaxis MOUTH: No lesions or candidiasis. 7.[address] in place NECK: Supple. No JVD. No air leak LUNGS: Crackles at the bases HEART: Regular, rate controlled in the 70s ABDOMEN: Soft, NT, ND, BS Present EXTREMITIES: No LE edema, pedal pulses intact NEURO: Sedation held. A&OX3. Able to write legibly. Able to answer yes no questions with shaking and nodding of head appropriately. Strength equal and appropriate upper extremities. PERRL. Unable to verbalize secondary to endotracheal tube in place. Current SOFA Score SOFA Score Response (Comments) Value Platelets (x10) > 150 0 Bilirubin (mg/dL) < 1.2 0 Misael Coma Score 15 0 Level of Hypotension MAP less than 70 1 Creatinine (mg/dL) < 1.2 0 Total 1 Assessment & Plan ACUTE RESPIRATORY FAILURE History of severe COPD with previous CHF exacerbation This episode is most likely multifactorial Recent hospitalizations 2 so will treat as an HCAP QTc was 474 so we will use doxycycline and vancomycin Failed weaning trial this morning. May be able to wean successfully later today or tomorrow. Currently on precedex gtt Sedation held this morning and patient was alert and oriented X 3. Indicated that she wishes to remain intubated another day if there is hope of successful extubation Sputum cx pending - all other cultures are pending Continue management in ICU CARDIOVASCULAR CHF versus pulmonary edema Furosemide 40 mg daily IV Follow clinically At this point we'll hold off on further echocardiogram or cardiology consult Digoxin level I.5 - continue with IV digoxin 125 g daily Patient with history of chronic atrial fibrillation - resume Eliquis today Continue with Lopressor 2.5 IV every 6 Calcium channel ginny held PULMONARY History of severe COPD and emphysema Prednisone 10 milligrams daily at home Methylprednisolone 40 mg IV every 8 hours - Change to q12h 05/11 HCAP - cefepime, doxycycline - Hold vancomycin Pulmonary consult requested - appreciate Dr. Mejia's input [employer] 0.86 Follow serial I's and O's Mejia catheter in place ENDOCRINE No history of diabetes mellitus or hypothyroidism Follow BSG's per ICU protocol IV ACCESS Currently with peripheral IVs No indication for central line at this time ELECTROLYTES Balanced Follow serial labs ID Elevated WBC 23.71 on admission - down to 12.36 05/11 Tmax 38.8 Pro calcitonin 1.41 - repeat 05/12 Broad-spectrum antibiotics including cefepime, doxycycline. Hold vancomycin Blood cultures 2, urine culture, sputum culture pending DVT PROPHYLAXIS Eliquis held in the event that procedures are needed TEDs / SCDs ordered Discontinue Heparin and restart Eliquis 12.5 BID CCT: 30 minutes not inclusive of any procedures Thank you for including us in the care of this patient. Please refer to Dr. Thompson's addendum for further recommendations I have personally evaluated and examined this patient. I agree with assessment and plan of Pro Dos Santos PA-C. Experienced tachypnea, placed back on AC. Attempt weaning again tomorrow. Additional attempt to contact son. Consults & Procedures Consultants: Pulmonary - Dr. Mejia Procedures: Endotracheal intubation 05/10/2017 IV infusion of Precedex IV infusion of fluids. IV infusion of medication Data Medications: Current Inpatient Medications Medications (Trade) Dose Ordered Sig/Yared Route Start Time Stop Time Status Last Admin Dose Admin Heparin Sodium (Porcine) (Heparin Sq 5000 Unit/0.5ml) 5,000 unit Q8H SQ 05/10/17 10:00 06/09/17 09:59 05/11/17 09:12 5,000 UNIT Ondansetron HCl (Zofran Inj) 4 mg Q6H PRN IV 05/10/17 07:45 06/09/17 07:44 Lansoprazole (Prevacid Solutab) 30 mg DAILY PO 05/10/17 10:00 05/14/17 09:59 05/11/17 08:02 30 MG Furosemide 40 mg/ Syringe 4 ml @ 4 mls/min QAM IV 05/10/17 10:00 06/09/17 09:59 05/11/17 08:02 4 MLS/MIN Levothyroxine Sodium 37.5 mcg/ Syringe 1.875 ml @ 2 mls/min DAILY@0900 IV 05/10/17 11:00 06/09/17 10:59 05/11/17 09:08 2 MLS/MIN Metoprolol Tartrate (Lopressor Iv) 2.5 mg Q6 IV. 05/10/17 12:00 06/09/17 11:59 05/11/17 05:51 2.5 MG Methylprednisolone Sodium Succinate 40 mg/Syringe 0.64 ml @ 1.5 mls/min Q8H IV 05/10/17 10:00 06/09/17 09:59 05/11/17 09:09 1.5 MLS/MIN Miscellaneous Information (Consult Glycemic Management Pharmacy) 1 ea UD PRN N/A 05/10/17 10:15 06/09/17 10:14 Fentanyl Citrate (Fentanyl Inj) 50 mcg Q1H PRN IV 05/10/17 10:15 05/24/17 10:14 05/11/17 09:23 50 MCG Midazolam HCl (Versed Inj) 2 mg Q1H PRN IV 05/10/17 10:15 06/09/17 10:14 05/11/17 03:31 2 MG Doxycycline Hyclate 100 mg/ Dextrose 110 ml @ 55 mls/hr BID IV 05/10/17 21:00 05/17/17 20:59 05/11/17 08:02 55 MLS/HR Cefepime HCl (Consult) 1 UD PRN N/A 05/10/17 15:45 06/09/17 15:44 Digoxin 125 mcg/ Syringe 10 ml @ 2 mls/min QAM IV 05/11/17 09:00 06/10/17 08:59 05/11/17 08:01 2 MLS/MIN Cefepime HCl 2000 mg/Syringe 20 ml @ 5 mls/min Q12@0600,1800 IV 05/11/17 18:00 05/17/17 17:59 Dexmedetomidine HCl 200 mcg/ Sodium Chloride 50 ml @ 0 mls/hr Q0M PRN IV 05/11/17 08:45 05/15/17 08:44 05/11/17 09:22 5.2 MLS/HR Insulin Glargine (Lantus Solostar Pen) QAM SC 05/11/17 09:00 06/10/17 08:59 05/11/17 09:12 5 UNITS Insulin Aspart (novoLOG ASPART) SLIDING SCALE Q6 SC 05/11/17 12:00 06/10/17 11:59 Vital Signs: Date Time Temp Pulse Resp B/P (MAP) Pulse Ox O2 Delivery O2 Flow Rate FiO2 05/11/17 08:01 83 13 154/77 (102) 97 Mechanical Ventilator 30 05/11/17 08:01 90 05/11/17 08:00 Mechanical Ventilator 30 05/11/17 08:00 30 05/11/17 07:25 30 05/11/17 07:15 30 05/11/17 07:01 37.0 84 13 131/79 (96) 96 Mechanical Ventilator 30 05/11/17 06:01 84 16 148/82 (104) 95 Mechanical Ventilator 30 05/11/17 05:51 86 146/87 05/11/17 05:16 30 05/11/17 05:01 88 15 128/74 (92) 98 Mechanical Ventilator 30 05/11/17 04:01 37.7 88 13 109/68 (82) 95 Mechanical Ventilator 30 05/11/17 04:00 Mechanical Ventilator 30 05/11/17 04:00 30 05/11/17 03:01 93 14 116/67 (83) 95 Mechanical Ventilator 30 05/11/17 02:11 30 05/11/17 02:01 89 13 118/75 (89) 96 Mechanical Ventilator 30 05/11/17 01:01 89 12 103/56 (72) 95 Mechanical Ventilator 30 05/11/17 00:01 37.6 90 14 119/68 (85) 95 Mechanical Ventilator 30 05/10/17 23:59 Mechanical Ventilator 30 05/10/17 23:59 30 05/10/17 23:23 104 138/91 05/10/17 23:01 107 12 138/91 (107) 94 Mechanical Ventilator 30 05/10/17 22:49 40 05/10/17 22:01 98 13 124/76 (92) 97 Mechanical Ventilator 40 05/10/17 21:01 99 16 131/84 (100) 98 Mechanical Ventilator 40 05/10/17 20:00 37.9 102 15 124/71 (88) 98 Mechanical Ventilator 40 05/10/17 20:00 40 05/10/17 20:00 Mechanical Ventilator 40 05/10/17 19:59 40 05/10/17 18:00 85 13 104/60 (75) 99 Mechanical Ventilator 40 05/10/17 17:50 40 05/10/17 17:42 108 146/86 05/10/17 16:48 112 05/10/17 16:00 37.9 113 12 97/65 (76) 98 Mechanical Ventilator 40 05/10/17 16:00 100 Mechanical Ventilator 40 05/10/17 16:00 40 05/10/17 14:22 40 05/10/17 14:00 100 16 115/70 (85) 98 Mechanical Ventilator 40 05/10/17 12:00 37.8 107 15 110/72 (85) 97 Mechanical Ventilator 40 05/10/17 12:00 99 Mechanical Ventilator 40 05/10/17 12:00 40 05/10/17 11:21 40 05/10/17 10:22 115 111/72 05/10/17 10:00 110 16 111/72 (85) 99 Mechanical Ventilator 40 Laboratory Results: Last 24 Hours Test 05/10/17 10:28 05/10/17 13:12 05/10/17 13:48 05/10/17 15:07 Blood Gas Sample Site L Brachial Bedside Blood Gas pH (LAB) 7.47 Bedside Blood Gas pCO2 (LAB) 39 mmHg Bedside Blood Gas pO2 (LAB) 108 mmHg Bedside Blood Gas HCO3 (LAB) 29 meq/L Bedside Blood Gas Total CO2 30 mEq/l Bedside Blood Gas Base Excess (LAB) 5.0 meq/L Bedside Blood Gas O2 Saturation 99.0 % Onesimo Test NA Oxygen Delivery Device Ventilator Bedside Oxygen Rate (breaths/min) 12 Blood Gas Minute Ventilation 8.5 Bedside FiO2 40 % Blood Gas Tidal Volume 500 Blood Gas PEEP 10 Bedside Glucose 153 mg/dl 166 mg/dl 185 mg/dl Test 05/10/17 15:37 05/10/17 16:05 05/10/17 16:07 05/10/17 17:05 Total Creatine Kinase 41 U/L Creatine Kinase MB 2.3 ng/ml Creatine Kinase MB Ratio 5.6 Troponin I 1.040 ng/ml Bedside Glucose 212 mg/dl 192 mg/dl 207 mg/dl Test 05/10/17 19:46 05/10/17 22:54 05/10/17 23:26 05/11/17 03:24 Bedside Glucose 167 mg/dl 209 mg/dl 154 mg/dl Total Creatine Kinase 37 U/L Creatine Kinase MB 1.6 ng/ml Creatine Kinase MB Ratio 4.3 Troponin I 0.845 ng/ml Test 05/11/17 05:12 05/11/17 07:49 White Blood Count 12.36 K/uL Red Blood Count 3.86 M/uL Hemoglobin 11.7 g/dL Hematocrit 36.4 % Mean Corpuscular Volume 94.3 fL Mean Corpuscular Hemoglobin 30.3 pg Mean Corpuscular Hemoglobin Concent 32.1 g/dl Platelet Count 170 K/uL Mean Platelet Volume 10.4 fL Neutrophils (%) (Auto) 92.0 % Lymphocytes (%) (Auto) 3.4 % Monocytes (%) (Auto) 4.1 % Eosinophils (%) (Auto) 0.0 % Basophils (%) (Auto) 0.1 % Neutrophils # (Auto) 11.37 K/uL Lymphocytes # (Auto) 0.42 K/uL Monocytes # (Auto) 0.51 K/uL Eosinophils # (Auto) 0.00 K/uL Basophils # (Auto) 0.01 K/uL RDW Standard Deviation 49.9 fL RDW Coefficient of Variation 14.7 % Immature Granulocyte % (Auto) 0.4 % Immature Granulocyte # (Auto) 0.05 K/uL Venous Blood pH 7.43 Venous Blood Partial Pressure CO2 48 mmHg Venous Blood Partial Pressure O2 45 mmHg Venous Blood HCO3 31 mmol/L Venous Blood Oxygen Saturation 77.8 % Venous Blood Base Excess 5.6 mEq/L Sodium Level 137 mmol/L Potassium Level 4.0 mmol/L Chloride Level 101 mmol/L Carbon Dioxide Level 31 mmol/L Anion Gap 5.0 mmol/L Blood Urea Nitrogen 24 mg/dl Creatinine 0.86 mg/dl Est Creatinine Clear Calc Drug Dose 35.4 ml/min Estimated GFR () 70.9 Estimated GFR (Non- 61.2 BUN/Creatinine Ratio 28.0 Random Glucose 148 mg/dl Estimated Average Glucose 123 mg/dl Hemoglobin A1c 5.9 % Calcium Level 8.7 mg/dl Phosphorus Level 3.8 mg/dl Magnesium Level 1.9 mg/dl Bedside Glucose 189 mg/dl
--- NOTE | 2017-05-11 11:21 | NUR ---
Pt screened for Mechanical Ventilation. Please refer to linked assessment Addendum: 05/11/17 at [address] Amended: Links added.
--- NOTE | 2017-05-11 12:00 | NUR ---
A: Patient on CPAP setting on ventilator since 1054 with settings of 15/5 and 30% FiO2. Patient is tolerating well. Blood pressure low, see eMAR. Dejon Dos Santos PA-C aware. States will change Fentanyl dose to 25 mcg. IV metoprolol dose held. Call mehta within reach, will continue to monitor.
--- NOTE | 2017-05-11 13:16 | NUR ---
A: Patient complaining of shortness of breath, RR 30s. Patient switched back to assist control mode on ventilator. Precedex continues to infuse at 0.4 mcg/kg/hr. Repositioning and mouth care provided. Call mehta within reach. Blood pressure improved to 125/67.
--- NOTE | 2017-05-11 14:32 | NUR ---
A: Patient has no s/s distress. See EMR for vital signs. New orders received to begin Normosol at 75 ml/hr.
[2017-05-11] MEDS: NORMOSOL R 1,000 ML IV SCH (15:07)
--- NOTE | 2017-05-11 15:52 | Critical Care Progress Note ---
Critical Care Progress Note Date of Service May 11, 2017. Critical Care Progress Note Received a call from the patient's son Jerel Contreras He was very pleasant and thanked staffer updating him on his mother's care He states that normally she is competent and able to make her own decisions but that she has a diagnosed borderline personality disorder and can be difficult to work with. He is available by phone although he lives in the state of [place]. The son's phone number is
--- NOTE | 2017-05-11 16:00 | NUR ---
a: assessment completed, no changes noted from prev shift verbal report. opens eyes to minimal stimulation, nods/shakes head to hand signals. sleeping when undisturbed, on precedex gtt at 0.4 mcg/kg/h. lungs cta. minimal secretions via ett in-line sxn'g. breathing above vent rate of AC 8 with spo2 mid 90s. afib, rate averaging 60s. adequate pressures. abdm soft, ogt to lis. no bm. adequate u/o via fc. routine care completed. see emr further detail.
--- NOTE | 2017-05-11 18:00 | NUR ---
a: chg bath/cath/skincare, linen change. tolerated well, tried to assist with turns. held 1800 lopressor for hr drifting into 50s frequently, averaging 60s.
--- NOTE | 2017-05-11 20:00 | NUR ---
PHYSICAL ASSESSMENT DOCUMENTED, SEE EMR. VSS. NO DISTRESS EVIDENT. PRECEDEX GTT FOR SEDATION, PT ABLE TO WAKE UP AND COMMUNICATE USING PEN AND PAPER. AGITATED, FRUSTRATED AT TIMES. TOLERATING IVF THERAPY W/O S/S OF VOLUME OVERLOAD. NO S/S OF HYPO- OR HYPERGLYCEMIA. SOFT WRIST RESTRAINTS IN USE TO PREVENT SELF EXTUBATION, NV AND SKIN CHECKS WNL TO BUE. CALL GUERRA IN REACH, BED IN LOWEST POSITION, SIDE RAILS UP, WILL CONTINUE TO MONITOR.
[2017-05-11] MEDS: APIXABAN 2.5 MG TAB PO SCH (20:31)
--- NOTE | 2017-05-11 22:00 | NUR ---
SLEEPING IN SHORT INTERVALS. NO C/O PAIN. C/O BIPAP MASK BEING UNCOMFORTABLE, INSISTING MASK BE REMOVED. PLACED ON 02 NC AT 4L/MIN. NO S/S OF HYPO OR HYPERGLYCEMIA NOTED. TOLERATING IVF W/O S/S OF VOLUME OVERLOAD. COUGHING UP SMALL TO MODERATE AMOUNTS OF THICK YELLOW/BROWN SPUTUM. CALL GUERRA IN REACH, WILL CONTINUE TO MONITOR. Addendum: 05/13/17 at 0420 by Shellie Perez RN THIS NOTE TO BE FOR 05/12/17 AT 2200
--- NOTE | 2017-05-11 22:00 | NUR ---
PT RESTING COMFORTABLY IN BED, LESS AGITATED AT THIS TIME. VSS, DOES NOT APPEAR TO BE IN ANY DISTRESS. CALL GUERRA IN REACH, WILL CONTINUE TO MONITOR.
--- NOTE | 2017-05-11 23:35 | Progress Note ---
Subjective Date of Service: May 11, 2017. Subjective Pt evaluation today including: conversation w/ patient, physical exam 87 yo female who is currently intubated unable to provide history. Problem List Medical Problems: (1) Acute bronchitis Status: Acute (2) Allergic reaction Status: Acute (3) CHF (congestive heart failure) Status: Acute (4) CHF exacerbation Status: Acute (5) Elevated troponin Status: Acute (6) Hypokalemia Status: Acute (7) Hyponatremia Status: Acute (8) Hypoxia Status: Acute (9) Hypoxia Status: Acute (10) Hypoxia Status: Chronic (11) Hypoxia Status: Acute (12) PNA (pneumonia) Status: Acute (13) Pneumonia Status: Acute (14) Pulmonary edema Status: Acute (15) Rapid atrial fibrillation Status: Acute (16) Respiratory failure Status: Acute (17) Respiratory failure Status: Acute (18) Sepsis Status: Acute (19) Weakness Status: Acute Review of Systems Respiratory: No cough, No sputum All Other Systems: Reviewed and Negative Objective Vital Signs Date Time Temp Pulse Resp B/P (MAP) Pulse Ox O2 Delivery O2 Flow Rate FiO2 05/11/17 23:11 30 05/11/17 22:00 62 10 140/69 (92) 98 Mechanical Ventilator 30 05/11/17 20:03 30 05/11/17 20:00 Mechanical Ventilator 30 05/11/17 20:00 36.4 62 11 139/64 (89) 98 Mechanical Ventilator 30 05/11/17 18:20 30 05/11/17 18:00 55 12 117/59 (78) 97 Mechanical Ventilator 30 05/11/17 18:00 55 117/59 05/11/17 16:00 36.6 66 13 97/57 (70) 95 Mechanical Ventilator 30 05/11/17 16:00 30 05/11/17 16:00 95 Mechanical Ventilator 30 05/11/17 13:02 86 13 125/67 (86) 97 Mechanical Ventilator 30 05/11/17 13:00 30 05/11/17 12:01 36.5 77 12 88/53 (65) 97 Mechanical Ventilator 30 05/11/17 12:00 Mechanical Ventilator 30 05/11/17 12:00 30 05/11/17 11:55 66 82/50 05/11/17 11:01 70 23 82/50 (61) 96 Mechanical Ventilator 30 05/11/17 10:55 30 05/11/17 10:01 71 12 85/51 (62) 95 Mechanical Ventilator 30 05/11/17 09:01 76 12 106/65 (79) 96 Mechanical Ventilator 30 05/11/17 08:01 83 13 154/77 (102) 97 Mechanical Ventilator 30 05/11/17 08:01 90 05/11/17 08:00 Mechanical Ventilator 30 05/11/17 08:00 30 05/11/17 07:25 30 05/11/17 07:15 30 05/11/17 07:01 37.0 84 13 131/79 (96) 96 Mechanical Ventilator 30 05/11/17 06:01 84 16 148/82 (104) 95 Mechanical Ventilator 30 05/11/17 05:51 86 146/87 05/11/17 05:16 30 05/11/17 05:01 88 15 128/74 (92) 98 Mechanical Ventilator 30 05/11/17 04:01 37.7 88 13 109/68 (82) 95 Mechanical Ventilator 30 05/11/17 04:00 Mechanical Ventilator 30 05/11/17 04:00 30 05/11/17 03:01 93 14 116/67 (83) 95 Mechanical Ventilator 30 05/11/17 02:11 30 05/11/17 02:01 89 13 118/75 (89) 96 Mechanical Ventilator 30 05/11/17 01:01 89 12 103/56 (72) 95 Mechanical Ventilator 30 05/11/17 00:01 37.6 90 14 119/68 (85) 95 Mechanical Ventilator 30 05/10/17 23:59 Mechanical Ventilator 30 05/10/17 23:59 30 Physical Exam Comments: General Appearance: + pertinent finding (sedated and intubated on mechanical ventilator) Head: normocephalic, atraumatic Eyes: normal inspection, PERRL ENT: normal ENT inspection Neck: supple, no adenopathy Respiratory/Chest: chest non-tender, + decreased breath sounds Cardiovascular: no murmur, + irregularly irregular Abdomen/GI: normal bowel sounds, non tender, soft Extremities/Musculoskelatal: normal inspection, no pedal edema Neurologic/Psych: + pertinent finding (sedated) Lymphatic: no adenopathy Laboratory Results Last 24 Hours Test 05/11/17 03:24 05/11/17 05:12 05/11/17 07:49 05/11/17 11:07 Bedside Glucose 154 mg/dl 189 mg/dl 144 mg/dl White Blood Count 12.36 K/uL Red Blood Count 3.86 M/uL Hemoglobin 11.7 g/dL Hematocrit 36.4 % Mean Corpuscular Volume 94.3 fL Mean Corpuscular Hemoglobin 30.3 pg Mean Corpuscular Hemoglobin Concent 32.1 g/dl Platelet Count 170 K/uL Mean Platelet Volume 10.4 fL Neutrophils (%) (Auto) 92.0 % Lymphocytes (%) (Auto) 3.4 % Monocytes (%) (Auto) 4.1 % Eosinophils (%) (Auto) 0.0 % Basophils (%) (Auto) 0.1 % Neutrophils # (Auto) 11.37 K/uL Lymphocytes # (Auto) 0.42 K/uL Monocytes # (Auto) 0.51 K/uL Eosinophils # (Auto) 0.00 K/uL Basophils # (Auto) 0.01 K/uL RDW Standard Deviation 49.9 fL RDW Coefficient of Variation 14.7 % Immature Granulocyte % (Auto) 0.4 % Immature Granulocyte # (Auto) 0.05 K/uL Venous Blood pH 7.43 Venous Blood Partial Pressure CO2 48 mmHg Venous Blood Partial Pressure O2 45 mmHg Venous Blood HCO3 31 mmol/L Venous Blood Oxygen Saturation 77.8 % Venous Blood Base Excess 5.6 mEq/L Sodium Level 137 mmol/L Potassium Level 4.0 mmol/L Chloride Level 101 mmol/L Carbon Dioxide Level 31 mmol/L Anion Gap 5.0 mmol/L Blood Urea Nitrogen 24 mg/dl Creatinine 0.86 mg/dl Est Creatinine Clear Calc Drug Dose 35.4 ml/min Estimated GFR () 70.9 Estimated GFR (Non- 61.2 BUN/Creatinine Ratio 28.0 Random Glucose 148 mg/dl Estimated Average Glucose 123 mg/dl Hemoglobin A1c 5.9 % Calcium Level 8.7 mg/dl Phosphorus Level 3.8 mg/dl Magnesium Level 1.9 mg/dl Test 05/11/17 12:16 05/11/17 16:07 Blood Gas Sample Site L Radial Bedside Blood Gas pH (LAB) 7.51 Bedside Blood Gas pCO2 (LAB) 45 mmHg Bedside Blood Gas pO2 (LAB) 77 mmHg Bedside Blood Gas HCO3 (LAB) 36 meq/L Bedside Blood Gas Total CO2 37 mEq/l Bedside Blood Gas Base Excess (LAB) 13.0 meq/L Bedside Blood Gas O2 Saturation 97.0 % Onesimo Test Pass Oxygen Delivery Device Ventilator Bedside FiO2 30 % Blood Gas PEEP 5 Bedside Glucose 124 mg/dl Assessment and Plan 87 yo female known for multiple admissions for her severe COPD is admitted with ACUTE HYPOXIC RESPIRATORY FAILURE Patient is currently intubated On vancomycin and doxycycline On bronchodilators Weaning trial per protocol, she failed today. will try again tomorrow. Previous admissions patient was DNR however no POST form is noted. ICU team is trying to contact son. Continue management in ICU H/O of CHF Probable CHF exacerbation As patient has signs of pulmonary edema Will have patient on Furosemide and monitor her Is and Os Critical care team managing. Possible HCAP on cefepime, doxy, vanco DVT PROPHYLAXIS Eliquis held in the event that procedures are needed TEDs / SCDs ordered Heparin 5000 units subcutaneous every eight hours
[2017-05-12] VITALS (14 sets, daily range): BP systolic 131–198; BP diastolic 71–125; PULSE 59–92; TEMP 36.4–36.8; O2SAT 92–100
--- NOTE | 2017-05-12 | NUR ---
NO CHANGES TO PHYSICAL ASSESSMENT AT THIS TIME. VSS. NO DISTRESS EVIDENT. A-FIB ON TELEMETRY. NO S/S OF HYPO- OR HYPERGLYCEMIA. TOLERATING NORMOSOL AT 75 CC/HR W/O S/S OF VOLUME OVERLOAD. RESTING COMFORTABLY, BUT EASILY AGITATED. SCDs ON. REMAINS ON PRECEDEX GTT. CALL GUERRA IN REACH, WILL CONTINUE TO MONITOR.
[2017-05-12] MEDS: DexMEDEtomidine HCL IV 200 MCG in SODIUM CHLORIDE 0.9% 50ML 48 ML IV PRN (00:38)
[2017-05-12] MEDS: MIDAZOLAM HCL 1 MG/ML 2ML VIAL IV PRN (01:30)
--- NOTE | 2017-05-12 02:00 | NUR ---
RECENTLY MEDICATED W/ PRN VERSED FOR INCREASING ANXIETY AND AGITATION. VSS. NO DISTRESS EVIDENT. RESTING COMFORTABLY AFTER VERSED GIVEN. CALL GUERRA IN REACH, WILL CONTINUE TO MONITOR.
[2017-05-12] MEDS: NORMOSOL R 1,000 ML IV SCH ×2 (03:46→17:22)
--- NOTE | 2017-05-12 04:00 | NUR ---
PHYSICAL ASSESSMENT REMAINS UNCHANGED AT THIS TIME. VSS. A-FIB ON TELEMETRY. NO DISTRESS EVIDENT. NO S/S OF HYPO- OR HYPERGLYCEMIA. REMAINS ON PRECEDEX GTT, NORMOSOL AT 75 CC/HR. SMEAR BM THIS AM. BATHED, TOLERATED WELL. RESTING COMFORTABLY. REPOSITIONED BY STAFF. CALL GUERRA IN REACH, WILL CONTINUE TO MONITOR.
[2017-05-12] MEDS: INSULIN ASPART 100 UNITS/ML 3 ML PEN SC SCH ×5 (05:39→23:36)
[2017-05-12] MEDS: METOPROLOL TARTRATE 1 MG/ML VIAL IV. SCH ×4 (06:00→23:33)
--- NOTE | 2017-05-12 06:00 | NUR ---
SLEEPING COMFORTABLY IN BED. VSS. NO DISTRESS EVIDENT. CALL GUERRA IN REACH, WILL CONTINUE TO MONITOR. .
[2017-05-12 06:07] LABS: HEMATOCRIT 35.6 % (37-47); HEMOGLOBIN 11.8 g/dL (12.0-16.0); IG# 0.03 K/uL (0.00-0.02); LYMPH % 4.6 %; LYMPH ABS # 0.51 K/uL (1.2-3.4); MEAN CELL VOLUME 93.9 fL (80-100); MEAN CORPUSCULAR HEMOGLOBIN 31.1 pg (25-34); MEAN CORPUSCULAR HGB CONC 33.1 g/dl (32-36); MEAN PLATELET VOLUME 10.6 fL (7.4-10.4); MONO % 3.4 %; MONO ABS # 0.38 K/uL (0.11-0.59); NEUT % 91.7 %; NEUT ABS # 10.27 K/uL (1.4-6.5); PLATELET COUNT 159 K/uL (130-400); RED CELL DISTRIBUTION WIDTH CV 14.6 % (11.5-14.5); RED CELL DISTRIBUTION WIDTH SD 50.1 fL (36.4-46.3); WHITE BLOOD COUNT 11.19 K/uL (4.8-10.8)
[2017-05-12] MEDS: CEFEPIME IV 2,000 MG in SYRINGE 7.5 ML IV SCH (06:34)
[2017-05-12 06:44] LABS: CALCIUM 8.9 mg/dl (8.5-10.1); CREATININE 0.67 mg/dl (0.60-1.20); PHOSPHORUS 4.1 mg/dl (2.5-4.9); POTASSIUM 3.5 mmol/L (3.5-5.1)
[2017-05-12] MEDS ORDERED: POTASSIUM CHLORIDE 20 MEQ/15 ML UDC NG STA (06:48)
[2017-05-12] MEDS: LANSOPRAZOLE SOLUTAB 30 MG PO SCH (07:21)
[2017-05-12] MEDS: APIXABAN 2.5 MG TAB PO SCH ×2 (07:21→21:33)
--- NOTE | 2017-05-12 08:00 | NUR ---
A/ID: PT ASSESSMENT COMPLETED. PT IS AWAKE ON THE VENTILATOR, AGITATED AND ANXIOUS. RESTRAINTS ARE ON, SHE IS SMACKING HER HANDS AND CALL LIGHT OFF THE BED. IV INTACT. MATSON PATENT AND DRAINING. ABG COMPLETED BY RESP. THERAPIST. AFIB ON MONITOR - HR VARIES FROM 40-70'S. REPOSITIONED, ORAL CARE AND MATSON CARE COMPLETED. CALL GUERRA WITHIN REACH.
--- NOTE | 2017-05-12 08:03 | DIAGNOSTIC IMAGING REPORT ---
CHEST ONE VIEW PORTABLE HISTORY: Respiratory Failure COMPARISON: Chest 05/11/2017. 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 No pneumothorax. No pleural effusions. Nasogastric tube terminates below the diaphragm. Mild central pulmonary vascular congestion without overt edema. Trace bilateral pleural effusions. The heart remains borderline enlarged. IMPRESSION: 1. Satisfactory support line placement. 2. Mild pulmonary vascular congestion and trace bilateral pleural effusions persist. Electronically signed by: Barrera Gutiérrez M.D. 05/12/2017 8:02 AM Dictated Date/Time: 05/12/2017 8:01 AM
[2017-05-12] MEDS: DIGOXIN IV 125 MCG in SYRINGE 9.5 ML IV SCH (08:23)
[2017-05-12] MEDS: INSULIN GLARGINE SOLOSTAR 100 UNITS/ML 3 ML PEN SC SCH (08:27)
[2017-05-12] MEDS: METHYLPREDNISOLONE IV 40 MG in SYRINGE 0 ML IV SCH ×2 (08:29→21:33)
[2017-05-12] MEDS: DOXYCYCLINE HYCLATE 100 MG in DEXTROSE 5% 100ML IV SCH ×2 (08:30→21:32)
[2017-05-12] MEDS: FUROSEMIDE INJ 40 MG in SYRINGE 0 ML IV SCH (08:30)
[2017-05-12] MEDS: LEVOTHYROXINE SODIUM INJ 37.5 MCG in SYRINGE 0 ML IV SCH (08:33)
--- NOTE | 2017-05-12 09:05 | NUR ---
pt is agitated and anxious, she is pushing nursing staff away when attempting to help. she has been provided paper and pen which she writes her needs down on since the ET tube is in place. she does state she is having difficulty breathing on the vent - which Dr. Thompson was made aware. Explained to patient that she has the tube in place and it feels as if she is breathing through a straw. she nods that she agrees. when nursing is not in room, patient has eyes closed, is breathing of a rate of 18-20 and does not appear to be in any resp. distress.
--- NOTE | 2017-05-12 09:30 | NUR ---
patient continues to be agitated with nursing staff stating that they are not helping her and she is requesting to see her physician. again, Dr. Thompson is made aware. pt states she will continue to ring her call mehta until the physician comes in. Explained to patient that the physician was seeing other patients. she continues to be upset and unhappy.
--- NOTE | 2017-05-12 10:20 | NUR ---
Dr. Thompson at bedside discussing options with patient - patient is writing on paper with a pen and nodding yes/no to questions. patient did state that she would not want to be on the ventilator again and wished for Dr. Thompson to call her son, in which he did speak with the son over the phone and verified code status. pt was agreeable to be extubated to a bipap and depending on her resp. status, she could be transitioned to nasal cannula in a few hours.
[2017-05-12] MEDS ORDERED: MoRPHine SULFATE 2 MG/ML CARP ONE (10:30)
--- NOTE | 2017-05-12 10:30 | NUR ---
2mg iv morphine given prior to extubation per Dr. Thompson at bedside. Addendum: 05/12/17 at 1905 by Sandra Barnett RN precedex off.
--- NOTE | 2017-05-12 10:35 | NUR ---
patient successfully extubated by resp. therapist. RN and Dr. Thompson present. patient requesting to wipe her face, rn provided patient with a comfort bath cloth and she threw it off the side and continued to attempt to yell and say inappropriately words towards staff. Bipap was placed due to oxygen sat decreasing to the mid 80's. Patient asking what was going "to happen now" when RN attempted to explain again to patient the plan, she pushed nursing staff out of the way. She'd prefer to speak with respiratory therapist.
[2017-05-12] MEDS ORDERED: MoRPHine SULFATE 2 MG/ML CARP IV STA (10:58)
--- NOTE | 2017-05-12 11:03 | Critical Care Progress Note ---
Critical Care Progress Note Date of Service May 12, 2017. ICU Day ICU Day Number: [address] Thompson Subjective Awake alert, communicating robustly by writing notes on paper. Discussed that her lungs have improved to the point that extubation would be recommended. We discussed replacing the breathing tube if she were to fail. She clearly indicated she would not want a breathing tube replaced. This is also been consistent with prior visits. I discussed the possibility of tracheostomy to facilitate long-term ventilator weaning should she fail. She clearly indicated she did not want this either. These communications were in the present with her bedside nurse, Justina. I also discussed the case with the patient's son Jerel, who is aware of her wishes and agrees with her desire to be a DO NOT INTUBATE in event of respiratory failure. Objective GENERAL : Resting comfortably in bed, glasses on, hearing aid in place, watching TV EYES: No icterus, gaze conjugate NOSE: No evidence of epistaxis NECK: Supple. No JVD. No air leak LUNGS: Prolonged DONALDO ratio HEART: Regular, rate controlled in the 70s ABDOMEN: Soft, NT, ND, BS Present EXTREMITIES: No LE edema, pedal pulses intact NEURO: Sedation held. A&OX3. Able to write legibly. Able to answer yes no questions with shaking and nodding of head appropriately. Strength equal and appropriate upper extremities. PERRL. Unable to verbalize secondary to endotracheal tube in place. Pscyh: Appears to have capacity. Clearly understands if she is unable to breathe in a breathing tube was not placed she would pass away. She clearly indicated that she does not want to have a breathing tube placed. She clearly indicated she is able to rationalize her decisions, she wrote that she wanted me to contact her son to indicate she did not want a breathing tube replaced. Current SOFA Score SOFA Score Response (Comments) Value Platelets (x10) > 150 0 Bilirubin (mg/dL) < 1.2 0 [place] Coma Score 15 0 Level of Hypotension MAP less than 70 1 Creatinine (mg/dL) < 1.2 0 Total 1 Assessment & Plan ACUTE RESPIRATORY FAILURE History of severe COPD with previous CHF exacerbation This episode is most likely multifactorial Recent hospitalizations 2 so will treat as an HCAP QTc was 511 so we will use doxycycline Currently on precedex gtt Sedation held this morning and patient was alert and oriented X 3. Sputum cx: Scant normal chen Deescalated to doxycycline for atypical coverage given findings and sputum CARDIOVASCULAR CHF versus pulmonary edema Furosemide 40 mg daily IV Follow clinically At this point we'll hold off on further echocardiogram or cardiology consult Digoxin level I.5 - continue with IV digoxin 125 g daily Patient with history of chronic atrial fibrillation - resume Eliquis today Continue with Lopressor 2.5 IV every 6 Calcium channel ginny held PULMONARY History of severe COPD and emphysema Prednisone 10 milligrams daily at home Methylprednisolone 40 mg IV every 8 hours - Change to q12h 05/11 HCAP -doxycycline Pulmonary consult requested - appreciate Dr. 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 and O's Mejia catheter in place ENDOCRINE No history of diabetes mellitus or hypothyroidism Follow BSG's per ICU protocol IV ACCESS Currently with peripheral IVs No indication for central line at this time ELECTROLYTES Balanced Follow serial labs ID Elevated WBC 23.71 on admission - down to 12.36 05/11 Tmax 37, afebrile since 1222 Pro calcitonin 1.41 - repeat 05/12, 3.74 De-escalated to doxycycline Blood cultures 2, urine culture, sputum culture pending DVT PROPHYLAXIS Eliquis held in the event that procedures are needed TEDs / SCDs ordered Discontinue Heparin and restart Eliquis 12.5 BID CODE STATUS: DO NOT RESUSCITATE DO NOT INTUBATE in event of cardiopulmonary arrest. I contacted Jeri Chapman of the palate care service who had previously interacted with the patient. In discussion she has indicated numerous times that she had did not want to undergo further heroic measures in event of cardiopulmonary arrest. During her prior hospitalization the patient did not complete the [place] POLST form. Patient has been resistant to additional home health services. 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 During the natural dying process I believe she is having significant anxiety and air hunger which prompted her to contact emergency medical services since she does not have additional hospice or home health aides to administer medications to control the symptoms of air hunger. This time we will continue medical treatment of her respiratory failure however we will not escalate care beyond noninvasive ventilation and control air hunger and anxiety with medications. This is been discussed with the patient and she expresses her understanding; Her son is aware that this may ultimately lead to her passing away. Patient is critically ill due to acute on chronic hypoxic, hypercarbic respiratory failure. I have personally spent 55 minutes of critical care time in the direct management of this patient. This is a life/limb threatening event. This includes time spent evaluating patient, direct bedside care, chart review, placing orders, interpretation of diagnostic studies, discussion with consultants, patient, and family members, as well as other required patient management activities. This time is exclusive of all separately billable procedures, and teaching time and separate from and in addition to any other critical care service time. Consults & Procedures Consultants: Pulmonary - Dr. Mejia Procedures: Endotracheal intubation 05/10/2017 IV infusion of Precedex IV infusion of fluids. IV infusion of medication Data Medications: Current Inpatient Medications Medications (Trade) Dose Ordered Sig/Yared Route Start Time Stop Time Status Last Admin Dose Admin Ondansetron HCl (Zofran Inj) 4 mg Q6H PRN IV 05/10/17 07:45 06/09/17 07:44 Lansoprazole (Prevacid Solutab) 30 mg DAILY PO 05/10/17 10:00 05/14/17 09:59 05/12/17 07:21 30 MG Furosemide 40 mg/ Syringe 4 ml @ 4 mls/min QAM IV 05/10/17 10:00 06/09/17 09:59 05/12/17 08:30 4 MLS/MIN Levothyroxine Sodium 37.5 mcg/ Syringe 1.875 ml @ 2 mls/min DAILY@0900 IV 05/10/17 11:00 06/09/17 10:59 05/12/17 08:33 2 MLS/MIN Metoprolol Tartrate (Lopressor Iv) 2.5 mg Q6 IV. 05/10/17 12:00 06/09/17 11:59 05/11/17 05:51 2.5 MG Miscellaneous Information (Consult Glycemic Management Pharmacy) 1 ea UD PRN N/A 05/10/17 10:15 06/09/17 10:14 Fentanyl Citrate (Fentanyl Inj) 50 mcg Q1H PRN IV 05/10/17 10:15 05/24/17 10:14 05/11/17 20:29 50 MCG Midazolam HCl (Versed Inj) 2 mg Q1H PRN IV 05/10/17 10:15 06/09/17 10:14 05/12/17 01:30 2 MG Doxycycline Hyclate 100 mg/ Dextrose 110 ml @ 55 mls/hr BID IV 05/10/17 21:00 05/17/17 20:59 05/12/17 08:30 55 MLS/HR Cefepime HCl (Consult) 1 ea UD PRN N/A 05/10/17 15:45 06/09/17 15:44 Digoxin 125 mcg/ Syringe 10 ml @ 2 mls/min QAM IV 05/11/17 09:00 06/10/17 08:59 05/11/17 08:01 2 MLS/MIN Cefepime HCl 2000 mg/Syringe 20 ml @ 5 mls/min Q12@0600,1800 IV 05/11/17 18:00 05/17/17 17:59 05/12/17 06:34 5 MLS/MIN Dexmedetomidine HCl 200 mcg/ Sodium Chloride 50 ml @ 0 mls/hr Q0M PRN IV 05/11/17 08:45 05/15/17 08:44 05/12/17 00:38 6.6 MLS/HR Insulin Glargine (Lantus Solostar Pen) QAM SC 05/11/17 09:00 06/10/17 08:59 05/11/17 09:12 5 UNITS Insulin Aspart (novoLOG ASPART) SLIDING SCALE Q6 SC 05/11/17 12:00 06/10/17 11:59 Apixaban (Eliquis Tab) 2.5 mg BID PO 05/11/17 21:00 06/10/17 20:59 05/12/17 07:21 2.5 MG Parenteral Electrolyte Solution 1,000 ml @ 75 mls/hr [id number] IV 05/11/17 15:00 06/10/17 14:59 05/12/17 03:46 75 MLS/HR Methylprednisolone Sodium Succinate 40 mg/Syringe 0.64 ml @ 1.5 mls/min Q12H IV 05/11/17 21:00 06/09/17 09:59 05/12/17 08:29 1.5 MLS/MIN Vital Signs: Date Time Temp Pulse Resp B/P (MAP) Pulse Ox O2 Delivery O2 Flow Rate FiO2 05/12/17 08:23 58 05/12/17 08:00 98 Mechanical Ventilator 30 05/12/17 08:00 36.5 72 26 153/79 (103) 99 Mechanical Ventilator 30 05/12/17 08:00 30 05/12/17 06:00 64 20 155/75 (101) 98 Mechanical Ventilator 05/12/17 06:00 52 05/12/17 05:50 30 05/12/17 04:00 36.4 61 15 144/80 (101) 95 Mechanical Ventilator 30 05/12/17 04:00 30 05/12/17 04:00 Mechanical Ventilator 30 05/12/17 02:41 30 05/12/17 02:00 59 11 162/72 (102) 98 Mechanical Ventilator 30 05/12/17 00:01 36.5 66 8 138/81 (100) 97 Mechanical Ventilator 30 05/11/17 23:59 Mechanical Ventilator 30 05/11/17 23:59 30 05/11/17 23:55 55 05/11/17 23:11 30 05/11/17 22:00 62 10 140/69 (92) 98 Mechanical Ventilator 30 05/11/17 20:03 30 05/11/17 20:00 30 05/11/17 20:00 Mechanical Ventilator 30 05/11/17 20:00 36.4 62 11 139/64 (89) 98 Mechanical Ventilator 30 05/11/17 18:20 30 05/11/17 18:00 55 12 117/59 (78) 97 Mechanical Ventilator 30 05/11/17 18:00 55 117/59 05/11/17 16:00 36.6 66 13 97/57 (70) 95 Mechanical Ventilator 30 05/11/17 16:00 30 05/11/17 16:00 95 Mechanical Ventilator 30 05/11/17 13:02 86 13 125/67 (86) 97 Mechanical Ventilator 30 05/11/17 13:00 30 05/11/17 12:01 36.5 77 12 88/53 (65) 97 Mechanical Ventilator 30 05/11/17 12:00 Mechanical Ventilator 30 05/11/17 12:00 30 05/11/17 11:55 66 82/50 05/11/17 11:01 70 23 82/50 (61) 96 Mechanical Ventilator 30 05/11/17 10:55 30 Laboratory Results: Last 24 Hours Test 05/11/17 11:07 05/11/17 12:16 05/11/17 16:07 05/12/17 00:43 Bedside Glucose 144 mg/dl 124 mg/dl 124 mg/dl Blood Gas Sample Site L Radial Bedside Blood Gas pH (LAB) 7.51 Bedside Blood Gas pCO2 (LAB) 45 mmHg Bedside Blood Gas pO2 (LAB) 77 mmHg Bedside Blood Gas HCO3 (LAB) 36 meq/L Bedside Blood Gas Total CO2 37 mEq/l Bedside Blood Gas Base Excess (LAB) 13.0 meq/L Bedside Blood Gas O2 Saturation 97.0 % Onesimo Test Pass Oxygen Delivery Device Ventilator Bedside FiO2 30 % Blood Gas PEEP 5 Test 05/12/17 05:36 05/12/17 05:42 05/12/17 07:27 Bedside Glucose 118 mg/dl White Blood Count 11.19 K/uL Red Blood Count 3.79 M/uL Hemoglobin 11.8 g/dL Hematocrit 35.6 % Mean Corpuscular Volume 93.9 fL Mean Corpuscular Hemoglobin 31.1 pg Mean Corpuscular Hemoglobin Concent 33.1 g/dl Platelet Count 159 K/uL Mean Platelet Volume 10.6 fL Neutrophils (%) (Auto) 91.7 % Lymphocytes (%) (Auto) 4.6 % Monocytes (%) (Auto) 3.4 % Eosinophils (%) (Auto) 0.0 % Basophils (%) (Auto) 0.0 % Neutrophils # (Auto) 10.27 K/uL Lymphocytes # (Auto) 0.51 K/uL Monocytes # (Auto) 0.38 K/uL Eosinophils # (Auto) 0.00 K/uL Basophils # (Auto) 0.00 K/uL RDW Standard Deviation 50.1 fL RDW Coefficient of Variation 14.6 % Immature Granulocyte % (Auto) 0.3 % Immature Granulocyte # (Auto) 0.03 K/uL Sodium Level 139 mmol/L Potassium Level 3.5 mmol/L Chloride Level 102 mmol/L Carbon Dioxide Level 30 mmol/L Anion Gap 7.0 mmol/L Blood Urea Nitrogen 32 mg/dl Creatinine 0.67 mg/dl Est Creatinine Clear Calc Drug Dose 45.5 ml/min Estimated GFR () 92.2 Estimated GFR (Non- 79.6 BUN/Creatinine Ratio 47.8 Random Glucose 118 mg/dl Calcium Level 8.9 mg/dl Phosphorus Level 4.1 mg/dl Magnesium Level 2.2 mg/dl Procalcitonin 3.74 ng/ml Digoxin Level 1.4 ng/ml Blood Gas Sample Site L Radial Bedside Blood Gas pH (LAB) 7.47 Bedside Blood Gas pCO2 (LAB) 44 mmHg Bedside Blood Gas pO2 (LAB) 78 mmHg Bedside Blood Gas HCO3 (LAB) 32 meq/L Bedside Blood Gas Total CO2 33 mEq/l Bedside Blood Gas Base Excess (LAB) 8.0 meq/L Bedside Blood Gas O2 Saturation 96.0 % Onesimo Test Pass Oxygen Delivery Device Ventilator Bedside FiO2 30 % Blood Gas PEEP 5
[2017-05-12] MEDS: MoRPHine SULFATE 2 MG/ML CARP IV PRN (11:34)
--- NOTE | 2017-05-12 11:37 | Pharmacy Progress Note ---
Glycemic Control Progress Note Date of Service May 12, 2017. Scope Glycemic Pharmacist consulted for glycemic control to write orders per [facility] inpatient glycemic control protocol. Objective Accuchecks BSG (last 24hrs): Test 05/11/17 16:07 05/12/17 00:43 05/12/17 05:36 05/12/17 05:42 Bedside Glucose 124 mg/dl (70-90) 124 mg/dl (70-90) 118 mg/dl (70-90) Random Glucose 118 mg/dl (70-99) HbA1c: Test 05/11/17 05:12 Hemoglobin A1c 5.9 % (4.5-5.6) H Recent Pertinent Medications The patient is currently receiving: * Basal insulin: Lantus SQ Q AM per scale: 0 units if BSG 140 or less; 5 units if BSG above 140 * Correctional Insulin: Novolog Correction per scale ACHS Goal Range: Low 120 mg/dL - High 160 mg/dL Correction Factor: 40 mg/dL/unit * Prandial insulin: Per carb ratio of 1 unit per 13 grams CHO consumed * Oral Agents: None currently Outpatient Anti-Diabetic Meds No prior h/o DM Assessment & Plan ASSESSMENT: 05/12/17 * BSGs have ranged 118-144 over the last 24 hrs despite ongoing stressors * Patient was extubated this AM * IV steroid dose continues as Solu-medrol 40mg IV Q 12 hrs; IV ABX also continue; she remains NPO but this will likely change today * The current insulin doses are appropriately low given the BSG trend and lack of CHO intake * Plan to continue with the same insulin orders for now, but if she requires no insulin in the next 24 hours w/ acceptable control may consider discontinuation of CR and basal insulin orders PLAN FOR INPATIENT GLYCEMIC CONTROL: * Continuing Lantus SQ Q AM: 0 units if BSG 140 or less; 5 units if BSG above 140 * Continuing correction factor of 40 mg/dl/unit * Continuing carb ratio of 1 unit per 13 grams CHO consumed * Continuing goal range of Low 120 mg/dL - High 160 mg/dL * Please note that the plan above was derived based on current level of insulin resistance and hospital stress. These recommendations are appropriate for inpatient admission only. Plan of care upon discharge will need to be reassessed to avoid potential outpatient hypo/hyperglycemia. Thank you.
--- NOTE | 2017-05-12 12:00 | NUR ---
A: NO ACUTE CHANGES TO PATIENT ASSESSMENT. SHE IS ANXIOUS AND AGITATED ON BIPAP - PRN MORPHINE GIVEN PER DR. FONTANEZ AT BEDSIDE. IV INTACT - NORMOSOL INFUSING PER ORDER. MATSON PATENT AND DRAINING. CALL GUERRA WITHIN REACH. AFIB ON MONITOR.
--- NOTE | 2017-05-12 14:00 | NUR ---
pt continues to be agitated. she pushed nursing staff away from her bed after ringing her call mehta. explained to patient she could not touch staff that way or be combative that we are here to help her. pt continues to ring call mehta every 15 minutes. requesting her primary care physician to be notified that her "heart meds are interacting with her other meds." explained to patient that her lopressor and digoxin were held this morning due to bradycardia. pt then stating she has not received any of her meds - explained pt was on the vent and sedated with medications and may not remember. pt continues to throw pens in her bed, smack mehta and clip board off side rail. extremely difficult to reason with patient.
--- NOTE | 2017-05-12 15:36 | NUR ---
PT MORE AGITATED. SHE PRESSED HER CALL GUERRA - RN ANSWERED. SHE WROTE ON PAPER "WHAT ABOUT FOOD, WATER AND BOWEL MOVEMENT." PT IS ON BIPAP AND DESATS OFF BIPAP - SHE CONTINUES TO BE SHORT OF BREATH. EXPLAINED IN DETAIL THAT TO PATIENT. PT SITS UP IN BED, WAVING PAPERS AND PEN IN RN'S FACE, THROWING HER ARMS AROUND AND CONTINUES TO BE INAPPROPRIATE WITH NURSING STAFF. PT STATES THAT RN IS GOING AGAINST THE LAW AND WOULD LIKE TO SPEAK WITH A COMMERCIAL LOAN PROCESSOR. CHARGE NURSE AWARE. Addendum: 05/12/17 at 1543 by Sandra Barnett RN PATIENT UPSET THAT RN IS VERBALLY ANSWERING HER QUESTIONS INSTEAD OF WRITING IT DOWN ON PAPER. PATIENT HAS VISUAL DIFFICULTIES AND WEARS EYE GLASSES WHICH ARE EXTREMELY DIFFICULT TO PLACE WITH A BIPAP MASK ON. PATIENT HAS A HEARING AMPLIFIER IN RIGHT EAR WHICH SHE USES TO COMMUNICATE SO SHE CAN HEAR BETTER, HOWEVER, SHE IS REFUSING NURSING TO TALK AND WANTS EVERYTHING WRITTEN ON PAPER. AGAIN, PT HAS DIFFICULTY SEEING AND EYE GLASSES ARE HARD TO USE WITH A BIPAP.
--- NOTE | 2017-05-12 15:40 | NUR ---
Spoke with Dr. Beckford via phone regarding patients ekg changes this morning. Dr. Thompson was called via phone and pulled imagines up at home and made aware. Dr. Beckford did speak with Dr. Thompson personally on the phone. Dr. Mccoy was made aware.
--- NOTE | 2017-05-12 16:00 | NUR ---
a: no acute changes to patient assessment. she is agitated, angry, restless, aggressive. iv intact. normosol infusing per order. walker patent and draining.
--- NOTE | 2017-05-12 16:14 | Pulmonology Progress Note ---
Pulmonary Progress Note Date of Service May 12, 2017. Attending Dr. Mejia Subjective Patient seen and examined this morning. She is status post extubation. Currently on BiPAP. She is communicating with writing. She is agitated. Objective Vital signs reviewed. Currently on BiPAP 30% Gen.: Awake alert oriented 3, agitated. CVS: S1-S2, irregularly irregular Chest: Diminished breath sounds bilaterally, tachypneic, using accessory muscles of respiration Abdomen: Soft, nontender, nondistended, bowel sounds positive Extremities: No edema, no cyanosis, no clubbing Labs reviewed White blood cell count 11 today. Hemoglobin stable at 11. Platelets 159. Pro-calcitonin 3.74 Sputum culture 05/10/2017: Scant normal chen Imaging reviewed. Medications reviewed. Chest x-ray 05/12/2017: Mild pulmonary vascular congestion. Trace bilateral pleural effusions. EKG: shows new LBBB consistent with STEMI Assessment & Plan Acute on chronic hypoxemic hypercapnic respiratory failure Pulmonary edema Hypertensive emergency Diastolic congestive heart failure Severe COPD on LTOT on chronic steroids Elevated right heart pressure Right upper lobe 1.2 cm nodule Atrial fibrillation on Eliquis Aortic stenosis s/p TAVR New LBBB STEMI Ms. Lane has had a complicated course over the last several months with progressive decline in her respiratory status. She is well known to pulmonary service and is a patient of Dr. Rucker. She was intubated for acute on chronic hypoxic respiratory failure likely secondary to decompensated diastolic heart failure. She is also on antibiotic therapy for pneumonia. White blood cell count continues to decrease, but procalcitonin still remains elevated. She is status post extubation this morning, but appears to be continuously agitated and tachypnea. Recent EKG, shows new LBBB consistent with STEMI. Recommendations Continue with BiPAP. Her respiratory status still remains quite tenuous as she does desaturate precipitously when off the noninvasive ventilation. Per patient and family, she will remain DNR/DNI if she should further decompensate. Continue with morphine when necessary for dyspnea and Ativan for anxiety. Continue with broads spectrum antibiotics, as per calcitonin still remains elevated despite normal chen in sputum Taper solumedrol as tolerated. Recommend albuterol/ ipratropium standing dose. Continue with BP control Continue with diuresis as kidney function tolerates. Right upper lobe nodule 1.2 cm, spiculated and unchanged in last few CT chest. She should have further surveillance and work up per Dr. Rucker as outpatient. Continue with [facility] for anticoagulation. Cardiology is following, not a candidate for PCI, now that she is DNR. Her overall prognosis is poor. If she cannot be weaned from BiPAP recommend palliative care consult for possible hospice placement. Will continue to follow with you Data Medications: Current Inpatient Medications Medications (Trade) Dose Ordered Sig/Yared Route Start Time Stop Time Status Last Admin Dose Admin Ondansetron HCl (Zofran Inj) 4 mg Q6H PRN IV 05/10/17 07:45 06/09/17 07:44 Lansoprazole (Prevacid Solutab) 30 mg DAILY PO 05/10/17 10:00 05/14/17 09:59 05/12/17 07:21 30 MG Furosemide 40 mg/ Syringe 4 ml @ 4 mls/min QAM IV 05/10/17 10:00 06/09/17 09:59 05/12/17 08:30 4 MLS/MIN Levothyroxine Sodium 37.5 mcg/ Syringe 1.875 ml @ 2 mls/min DAILY@0900 IV 05/10/17 11:00 06/09/17 10:59 05/12/17 08:33 2 MLS/MIN Metoprolol Tartrate (Lopressor Iv) 2.5 mg Q6 IV. 05/10/17 12:00 06/09/17 11:59 05/11/17 05:51 2.5 MG Miscellaneous Information (Consult Glycemic Management Pharmacy) 1 ea UD PRN N/A 05/10/17 10:15 06/09/17 10:14 Midazolam HCl (Versed Inj) 2 mg Q1H PRN IV 05/10/17 10:15 06/09/17 10:14 05/12/17 01:30 2 MG Doxycycline Hyclate 100 mg/ Dextrose 110 ml @ 55 mls/hr BID IV 05/10/17 21:00 05/17/17 20:59 05/12/17 08:30 55 MLS/HR Digoxin 125 mcg/ Syringe 10 ml @ 2 mls/min QAM IV 05/11/17 09:00 06/10/17 08:59 05/11/17 08:01 2 MLS/MIN Dexmedetomidine HCl 200 mcg/ Sodium Chloride 50 ml @ 0 mls/hr Q0M PRN IV 05/11/17 08:45 05/15/17 08:44 05/12/17 00:38 6.6 MLS/HR Insulin Glargine (Lantus Solostar Pen) QAM SC 05/11/17 09:00 06/10/17 08:59 05/11/17 09:12 5 UNITS Insulin Aspart (novoLOG ASPART) SLIDING SCALE Q6 SC 05/11/17 12:00 06/10/17 11:59 Apixaban (Eliquis Tab) 2.5 mg BID PO 05/11/17 21:00 06/10/17 20:59 05/12/17 07:21 2.5 MG Parenteral Electrolyte Solution 1,000 ml @ 75 mls/hr [id number] IV 05/11/17 15:00 06/10/17 14:59 05/12/17 03:46 75 MLS/HR Methylprednisolone Sodium Succinate 40 mg/Syringe 0.64 ml @ 1.5 mls/min Q12H IV 05/11/17 21:00 06/09/17 09:59 05/12/17 08:29 1.5 MLS/MIN Morphine Sulfate (MoRPHine SULFATE INJ) 1 mg Q15M PRN IV 05/12/17 11:00 05/26/17 10:59 05/12/17 11:34 1 MG Vital Signs: Date Time Temp Pulse Resp B/P (MAP) Pulse Ox O2 Delivery O2 Flow Rate FiO2 05/12/17 11:34 59 05/12/17 10:42 71 97 30 05/12/17 10:00 73 25 131/71 (91) 92 Mechanical Ventilator 30 05/12/17 08:23 58 05/12/17 08:00 98 Mechanical Ventilator 30 05/12/17 08:00 36.5 72 26 153/79 (103) 99 Mechanical Ventilator 30 05/12/17 08:00 30 05/12/17 06:00 64 20 155/75 (101) 98 Mechanical Ventilator 05/12/17 06:00 52 05/12/17 05:50 30 05/12/17 04:00 36.4 61 15 144/80 (101) 95 Mechanical Ventilator 30 05/12/17 04:00 30 05/12/17 04:00 Mechanical Ventilator 30 05/12/17 02:41 30 05/12/17 02:00 59 11 162/72 (102) 98 Mechanical Ventilator 30 05/12/17 00:01 36.5 66 8 138/81 (100) 97 Mechanical Ventilator 30 05/11/17 23:59 Mechanical Ventilator 30 05/11/17 23:59 30 05/11/17 23:55 55 05/11/17 23:11 30 05/11/17 22:00 62 10 140/69 (92) 98 Mechanical Ventilator 30 05/11/17 20:03 30 05/11/17 20:00 30 05/11/17 20:00 Mechanical Ventilator 30 05/11/17 20:00 36.4 62 11 139/64 (89) 98 Mechanical Ventilator 30 05/11/17 18:20 30 05/11/17 18:00 55 12 117/59 (78) 97 Mechanical Ventilator 30 05/11/17 18:00 55 117/59 05/11/17 16:00 36.6 66 13 97/57 (70) 95 Mechanical Ventilator 30 05/11/17 16:00 30 05/11/17 16:00 95 Mechanical Ventilator 30 05/11/17 13:02 86 13 125/67 (86) 97 Mechanical Ventilator 30 05/11/17 13:00 30 05/11/17 12:01 36.5 77 12 88/53 (65) 97 Mechanical Ventilator 30 05/11/17 12:00 Mechanical Ventilator 30 05/11/17 12:00 30 05/11/17 11:55 66 82/50 Laboratory Results: Last 24 Hours Test 05/11/17 12:16 05/11/17 16:07 05/12/17 00:43 05/12/17 05:36 Blood Gas Sample Site L Radial Bedside Blood Gas pH (LAB) 7.51 Bedside Blood Gas pCO2 (LAB) 45 mmHg Bedside Blood Gas pO2 (LAB) 77 mmHg Bedside Blood Gas HCO3 (LAB) 36 meq/L Bedside Blood Gas Total CO2 37 mEq/l Bedside Blood Gas Base Excess (LAB) 13.0 meq/L Bedside Blood Gas O2 Saturation 97.0 % Onesimo Test Pass Oxygen Delivery Device Ventilator Bedside FiO2 30 % Blood Gas PEEP 5 Bedside Glucose 124 mg/dl 124 mg/dl 118 mg/dl Test 05/12/17 05:42 05/12/17 07:27 White Blood Count 11.19 K/uL Red Blood Count 3.79 M/uL Hemoglobin 11.8 g/dL Hematocrit 35.6 % Mean Corpuscular Volume 93.9 fL Mean Corpuscular Hemoglobin 31.1 pg Mean Corpuscular Hemoglobin Concent 33.1 g/dl Platelet Count 159 K/uL Mean Platelet Volume 10.6 fL Neutrophils (%) (Auto) 91.7 % Lymphocytes (%) (Auto) 4.6 % Monocytes (%) (Auto) 3.4 % Eosinophils (%) (Auto) 0.0 % Basophils (%) (Auto) 0.0 % Neutrophils # (Auto) 10.27 K/uL Lymphocytes # (Auto) 0.51 K/uL Monocytes # (Auto) 0.38 K/uL Eosinophils # (Auto) 0.00 K/uL Basophils # (Auto) 0.00 K/uL RDW Standard Deviation 50.1 fL RDW Coefficient of Variation 14.6 % Immature Granulocyte % (Auto) 0.3 % Immature Granulocyte # (Auto) 0.03 K/uL Sodium Level 139 mmol/L Potassium Level 3.5 mmol/L Chloride Level 102 mmol/L Carbon Dioxide Level 30 mmol/L Anion Gap 7.0 mmol/L Blood Urea Nitrogen 32 mg/dl Creatinine 0.67 mg/dl Est Creatinine Clear Calc Drug Dose 45.5 ml/min Estimated GFR () 92.2 Estimated GFR (Non- 79.6 BUN/Creatinine Ratio 47.8 Random Glucose 118 mg/dl Calcium Level 8.9 mg/dl Phosphorus Level 4.1 mg/dl Magnesium Level 2.2 mg/dl Procalcitonin 3.74 ng/ml Digoxin Level 1.4 ng/ml Blood Gas Sample Site L Radial Bedside Blood Gas pH (LAB) 7.47 Bedside Blood Gas pCO2 (LAB) 44 mmHg Bedside Blood Gas pO2 (LAB) 78 mmHg Bedside Blood Gas HCO3 (LAB) 32 meq/L Bedside Blood Gas Total CO2 33 mEq/l Bedside Blood Gas Base Excess (LAB) 8.0 meq/L Bedside Blood Gas O2 Saturation 96.0 % Onesimo Test Pass Oxygen Delivery Device Ventilator Bedside FiO2 30 % Blood Gas PEEP 5
--- NOTE | 2017-05-12 16:28 | Critical Care Progress Note ---
Critical Care Progress Note Date of Service May 12, 2017. Critical Care Progress Note Notified by RN regarding EKG changes. Patient confirmed DNR/DNI this morning. Discussed EKG with Dr. Beckford. Digoxin toxicity in differential, will check level. Patient not ideal candidate for PCI, severe end-stage COPD. Would likely require intubation for PCI, and this is inconsistent with her wishes. Will continue to medically manage.
--- NOTE | 2017-05-12 16:30 | NUR ---
Dr. Mccoy at bedside speaking with patient. multiple attempts to get a hold of son.
--- NOTE | 2017-05-12 17:00 | NUR ---
pt refusing this RN to enter room and complete care. assisted care from Camden Mora RN. neighbors at bedside and updated as pt gave the ok to update them. Son has not been able to be reached at this time.
--- NOTE | 2017-05-12 17:28 | Progress Note ---
Subjective Date of Service: May 12, 2017. Subjective Pt evaluation today including: conversation w/ patient, conversation w/ family , physical exam 87 yo female with end stage lung disease was extubated today. Patient is communicating via writing. Patient states that she understands she is very sick and does not want to be intubated ever again. She would like to be comfort measures but is waiting to see her son. She requests me to call son. Nursing staff approached me and told me son lives in [place]. Unsure if patient is aware that her son lives in [place]. I had long discussion with Dr. Thompson who does not recommend escalating medical management as patient would likely need to be reintubated. Problem List Medical Problems: (1) Acute bronchitis Status: Acute (2) Allergic reaction Status: Acute (3) CHF (congestive heart failure) Status: Acute (4) CHF exacerbation Status: Acute (5) Elevated troponin Status: Acute (6) Hypokalemia Status: Acute (7) Hyponatremia Status: Acute (8) Hypoxia Status: Acute (9) Hypoxia Status: Acute (10) Hypoxia Status: Chronic (11) Hypoxia Status: Acute (12) PNA (pneumonia) Status: Acute (13) Pneumonia Status: Acute (14) Pulmonary edema Status: Acute (15) Rapid atrial fibrillation Status: Acute (16) Respiratory failure Status: Acute (17) Respiratory failure Status: Acute (18) Sepsis Status: Acute (19) Weakness Status: Acute Review of Systems Constitutional: No fever, No chills Eyes: No worsening of vision, No eye pain All Other Systems: Reviewed and Negative Medications Current Inpatient Medications Medications (Trade) Dose Ordered Sig/[facility] Route Start Time Stop Time Status Last Admin Dose Admin Ondansetron HCl (Zofran Inj) 4 mg Q6H PRN IV 05/10/17 07:45 06/09/17 07:44 05/13/17 19:54 4 MG Midazolam HCl (Versed Inj) 2 mg Q1H PRN IV 05/10/17 10:15 06/09/17 10:14 05/12/17 01:30 2 MG Apixaban (Eliquis Tab) 2.5 mg BID PO 05/11/17 21:00 06/10/17 20:59 05/14/17 20:16 2.5 MG Morphine Sulfate (MoRPHine SULFATE INJ) 1 mg Q15M PRN IV 05/12/17 11:00 05/26/17 10:59 05/13/17 10:12 1 MG Travoprost (Travatan Z) 1 drops HS OP 05/12/17 21:00 06/11/17 20:59 05/14/17 20:16 1 DROPS Polyethylene (Miralax Powder Packet) 17 gm DAILY PRN PO 05/13/17 00:30 06/12/17 00:29 Digoxin (Lanoxin Tab) 0.125 mg DAILY@16 PO 05/13/17 16:00 06/12/17 15:59 05/14/17 16:22 0.125 MG Doxycycline Hyclate (Vibramycin Cap) 100 mg BID PO 05/13/17 20:00 05/20/17 08:01 05/14/17 20:16 100 MG Furosemide (Lasix Tab) 40 mg QAM PO 05/14/17 08:00 06/13/17 08:59 05/14/17 08:00 40 MG Levothyroxine Sodium (Synthroid Tab) 75 mcg DAILYBB PO 05/14/17 06:00 06/13/17 05:59 05/15/17 06:42 75 MCG Prednisone (PredniSONE TAB) 30 mg DAILY PO 05/14/17 08:00 06/13/17 08:59 05/14/17 08:00 30 MG Metoprolol Tartrate (Lopressor Tab) 12.5 mg BID PO 05/13/17 20:00 06/12/17 20:59 05/14/17 20:36 12.5 MG Objective Vital Signs Date Time Temp Pulse Resp B/P (MAP) Pulse Ox O2 Delivery O2 Flow Rate FiO2 05/12/17 17:24 83 168/79 05/12/17 14:00 76 20 140/90 (107) 97 BiPAP 30 05/12/17 13:44 81 96 30 05/12/17 12:00 95 BiPAP 30 05/12/17 12:00 36.6 69 24 141/77 (98) 96 BiPAP 30 05/12/17 11:34 59 05/12/17 10:42 71 97 30 05/12/17 10:00 73 25 131/71 (91) 92 Mechanical Ventilator 30 05/12/17 08:23 58 05/12/17 08:00 98 Mechanical Ventilator 30 05/12/17 08:00 36.5 72 26 153/79 (103) 99 Mechanical Ventilator 30 05/12/17 08:00 30 05/12/17 06:00 64 20 155/75 (101) 98 Mechanical Ventilator 05/12/17 06:00 52 05/12/17 05:50 30 05/12/17 04:00 36.4 61 15 144/80 (101) 95 Mechanical Ventilator 30 05/12/17 04:00 30 05/12/17 04:00 Mechanical Ventilator 30 05/12/17 02:41 30 05/12/17 02:00 59 11 162/72 (102) 98 Mechanical Ventilator 30 05/12/17 00:01 36.5 66 8 138/81 (100) 97 Mechanical Ventilator 30 05/11/17 23:59 Mechanical Ventilator 30 05/11/17 23:59 30 05/11/17 23:55 55 05/11/17 23:11 30 05/11/17 22:00 62 10 140/69 (92) 98 Mechanical Ventilator 30 05/11/17 20:03 30 05/11/17 20:00 30 05/11/17 20:00 Mechanical Ventilator 30 05/11/17 20:00 36.4 62 11 139/64 (89) 98 Mechanical Ventilator 30 05/11/17 18:20 30 05/11/17 18:00 55 12 117/59 (78) 97 Mechanical Ventilator 30 05/11/17 18:00 55 117/59 Physical Exam General Appearance: + pertinent finding (Appears to be in mild distress gasping for air.) Eyes: normal inspection, PERRL ENT: normal ENT inspection Neck: supple, no adenopathy Respiratory/Chest: chest non-tender, + decreased breath sounds, + accessory muscle use, + stridor, + wheezing Cardiovascular: regular rate, rhythm, no edema Abdomen: normal bowel sounds, non tender, soft Extremities: normal inspection Neurologic/Psychiatric: automatic lathe operator II-XII nml as tested Skin: normal color Lymphatic: no adenopathy Laboratory Results Last 24 Hours Test 05/12/17 00:43 05/12/17 05:36 05/12/17 05:42 05/12/17 07:27 Bedside Glucose 124 mg/dl 118 mg/dl White Blood Count 11.19 K/uL Red Blood Count 3.79 M/uL Hemoglobin 11.8 g/dL Hematocrit 35.6 % Mean Corpuscular Volume 93.9 fL Mean Corpuscular Hemoglobin 31.1 pg Mean Corpuscular Hemoglobin Concent 33.1 g/dl Platelet Count 159 K/uL Mean Platelet Volume 10.6 fL Neutrophils (%) (Auto) 91.7 % Lymphocytes (%) (Auto) 4.6 % Monocytes (%) (Auto) 3.4 % Eosinophils (%) (Auto) 0.0 % Basophils (%) (Auto) 0.0 % Neutrophils # (Auto) 10.27 K/uL Lymphocytes # (Auto) 0.51 K/uL Monocytes # (Auto) 0.38 K/uL Eosinophils # (Auto) 0.00 K/uL Basophils # (Auto) 0.00 K/uL RDW Standard Deviation 50.1 fL RDW Coefficient of Variation 14.6 % Immature Granulocyte % (Auto) 0.3 % Immature Granulocyte # (Auto) 0.03 K/uL Sodium Level 139 mmol/L Potassium Level 3.5 mmol/L Chloride Level 102 mmol/L Carbon Dioxide Level 30 mmol/L Anion Gap 7.0 mmol/L Blood Urea Nitrogen 32 mg/dl Creatinine 0.67 mg/dl Est Creatinine Clear Calc Drug Dose 45.5 ml/min Estimated GFR () 92.2 Estimated GFR (Non- 79.6 BUN/Creatinine Ratio 47.8 Random Glucose 118 mg/dl Calcium Level 8.9 mg/dl Phosphorus Level 4.1 mg/dl Magnesium Level 2.2 mg/dl Procalcitonin 3.74 ng/ml Digoxin Level 1.4 ng/ml Blood Gas Sample Site L Radial Bedside Blood Gas pH (LAB) 7.47 Bedside Blood Gas pCO2 (LAB) 44 mmHg Bedside Blood Gas pO2 (LAB) 78 mmHg Bedside Blood Gas HCO3 (LAB) 32 meq/L Bedside Blood Gas Total CO2 33 mEq/l Bedside Blood Gas Base Excess (LAB) 8.0 meq/L Bedside Blood Gas O2 Saturation 96.0 % Onesimo Test Pass Oxygen Delivery Device Ventilator Bedside FiO2 30 % Blood Gas PEEP 5 Test 05/12/17 11:43 05/12/17 16:12 Bedside Glucose 146 mg/dl Assessment and Plan 87 yo female known for multiple admissions for her severe COPD is admitted with Extubated Patient discussed with patient code status and prognosis patient understands she is end stage she would like to be comfort measures only but will want to wait until she sees her son tomorrow. will continue current plan of care. Ischemic changes noted on EKG Patient would require PCI, however, she would then need to be reintubated and this will go against patient wishes ACUTE HYPOXIC RESPIRATORY FAILURE Patient is extubated Prednisone 10 milligrams daily at home HCAP -doxycycline Previous admissions patient was DNR however no POST form is noted. Morphine for air hunger H/O of CHF Probable CHF exacerbation As patient has signs of pulmonary edema Will have patient on Furosemide and monitor her Is and Os DVT PROPHYLAXIS Eliquis held in the event that procedures are needed TEDs / SCDs ordered I spoke with son who will drive down to see his mother.
--- NOTE | 2017-05-12 18:15 | NUR ---
pt's son called back in - dr. lyon speaking with him. pt's son to come see patient tomorrow and will discuss in details at bedside plan of care.
--- NOTE | 2017-05-12 19:42 | NUR ---
CALL TO RESPIRATORY THERAPY, REQUESTING TO EVALUATE PT BIPAP MASK FOR PROPER FIT
--- NOTE | 2017-05-12 20:00 | NUR ---
PHYSICAL ASSESSMENT DOCUMENTED IN EMR. VSS. WEARING BIPAP. NO DISTRESS EVIDENT. RESTING COMFORTABLY IN BED. REPOSITIONED BY STAFF. NO C/O PAIN OR SOB AT THIS TIME. CALL GUERRA IN REACH, BED IN LOWEST POSITION, SIDE RAILS UP, WILL CONTINUE TO MONITOR.
--- NOTE | 2017-05-12 20:10 | NUR ---
KYLE HILLMAN MADE AWARE OF PT REQUEST TO HAVE HER TRAVAST Z EYE GTTS ORDERED
[2017-05-12] MEDS: TRAVOPROST Z 0.004% OPH SOLN 2.5 ML BTL OP SCH (21:00)
[2017-05-12] MEDS ORDERED: TRAV0.00 OP (21:05)
--- NOTE | 2017-05-12 22:00 | NUR ---
PLEASE SEE NOTE ENTERED FOR 05/11/17 2200...ERROR ENTERING DATE FOR THIS NOTE
[2017-05-13] VITALS (11 sets, daily range): BP systolic 96–198; BP diastolic 79–112; PULSE 82–115; TEMP 36–36.4; O2SAT 86–100
--- NOTE | 2017-05-13 | NUR ---
SEE EMR FOR PHYSICAL ASSESSMENT. VSS. NO DISTRESS EVIDENT. PT BECOMES VERY SOB W/ CONVERSATION. REQUESTING TIEN HOSE BE REMOVED D/T DISCOMFORT. SCD CUFFS ADJUSTED MULTIPLE TIMES FOR COMFORT. CALL GUERRA IN REACH, WILL CONTINUE TO MONITOR.
[2017-05-13] MEDS ORDERED: POLYETHYLENE (MIRALAX) 17 GM PACK PO PRN (00:30)
[2017-05-13] MEDS ORDERED: POLYETHYLENE (MIRALAX) 17 GM PACK ONE (00:35)
[2017-05-13] MEDS: MoRPHine SULFATE 2 MG/ML CARP IV PRN ×4 (00:47→10:12)
--- NOTE | 2017-05-13 00:50 | NUR ---
MEDICATED W/ PRN MORPHINE FOR INCREASED ANXIETY AND SOB
--- NOTE | 2017-05-13 02:00 | NUR ---
RESTING IN BED AT THIS TIME. VSS. SATs ARE MID 90s WHILE ON 4L NC. NO DISTRESS EVIDENT AT THIS TIME, STILL CONTINUES TO BECOME DYSPNEIC W/ CONVERSATION, APPEARS COMFORTABLE WHEN AT REST. CALL GUERRA IN REACH, WILL CONTINUE TO MONITOR.
--- NOTE | 2017-05-13 03:11 | Critical Care Progress Note ---
Critical Care Progress Note Date of Service May 13, 2017. ICU Day ICU Day Number: [address] Thompson Subjective Pt refused Bipap overnight and did accept 4L nasal cannula as a substitute followed by 4L oxy-mask. Pt started the shift primarily communicating through writing but as the morning progressed, spoke more often. She complained of pain along her trachea where the ET tube was stating it "galan where my cold is " and stated "it feels like someone was banging on me" and she demonstrated by smashing her hand on the clipboard in her bed. I asked her if she was aware she was having a heart attack and she through her hands in the air and tossed her head about. She refused medications for pain at this time. Around 0100 pt began experiencing periods of anxiety and express shortness of breath and appeared anxious. Nursing was called in as the pt felt she wasn't getting enough air and they calmed her and instructed her to breath slowly saturations remained above 90%. Throughout the evening pt became more adamant, demanding CXR and refusing medical treatments. She did receive 1 dose of Morphine during the first anxiety attack and eventually relented to another at around 0600. Pt was instructed she could have it routinely and she stated, "And become and addict." I assured her this was not my intent but was the right medication for her anxiety and air hunger at this time. Also complained of constipation and asked for miralax and prune juice to help move her bowels; which she did several hours later. Pt asked for her glaucoma medication which was ordered and given. She then requested Restasis, which she was told the hospital does not stock. Pt is calm and sleeping in bed at this time. She is without current complaint. She has been clearing her secretions very well today. Pts son to arrive today. Pt waiting on decision of possible comfort measures once he arrives and they discuss. Objective Vital Signs - as noted Laboratory Data - as noted Physical Exam: General - NAD Eyes - PERRL, EOMI No icterus, gaze conjugate ENT - Mucosa moist, no lesions or candidiasis Neck - Supple, trachea midline, no masses or lymphadenopathy, no JVD or bruits Lungs - No paradoxical chest wall movement, clear to auscultation bilaterally, very minor expiratory wheeze, No rales, or rhonchi Heart - Irregularly irregular, No murmur, rubs, clicks, or gallops appreciated Abdomen - BS present, no bruits noted, tympanic to percussion, soft, nontender , nondistended, no organomegaly Extremities - No edema, pedal pulses intact Neuro - A&OX3 Strength extremities equal and appropriate bilaterally Reflexes:normal and equal CN:PERRL, EOMI, no facial asymmetry, uvula/tongue midline Current SOFA Score SOFA Score Response (Comments) Value Platelets (x10) > 150 0 Bilirubin (mg/dL) < 1.2 0 Irvine Coma Score 15 0 Level of Hypotension MAP less than 70 1 Creatinine (mg/dL) < 1.2 0 Total 1 Assessment & Plan (1) Anxiety (2) COPD exacerbation (3) Respiratory distress (4) Kidney disease (5) CHF (congestive heart failure) PLAN: Resp: * Acute Respiratory Failure * Pt DNI/DNR now and refusing BiPap * Supplemental oxygen as required * Precedex now discontinued * Treating for HCAP secondary to recent hospitalizations with Doxycycline ( first day of administration 05/10) * Pt on 4-5L of O2 based on her own request with saturation of 99-100%. * Severe COPD/Emphysema * Continue to titrate Methylprednisolone 40mg IV q 12h * Pulmonology consulted: Appreciate Dr. Mejia's input * Digoxin Level 1.1 CV: * CHF versus Pulm Edema * Continue Lasix 40mg daily IV (Monitor K) * Monitor on telemetry * EKG changes noted will follow clinically at this time. Pt would not tolerate/ desire cardiac catheterization * Morphine for pain as needed * QTC: 511 Repeat EKG in AM * Chronic A. Fib: Eliquis Fluids/Renal: * Cr: 0.67 * Monitor I&O's * Fluid balance: 208 * Mejia in place to gravity * Monitor Electrolytes daily and replace per protocol * Daily PRP Neuro: * Pt anxious, monitor * No unilateral symptoms at this time. ID: * Doxycycline for HCAP * Afebrile * Leukocytosis improvin.19 down from 23.71 * Procalcitonin: 3.74 on 05/12, repeat in 72 hours GI/Nutrition: * NPO except meds at this time * Recommend Swallow eval: coughing noted with fluids Heme: * Eliquis restarted, Pt asked to removed TIEN hose * H&H stable Endocrine: * Accu-Checks per protocol, started insulin infusion for 2 blood sugars greater than 180 * No hx of DM or Endocrine Dx Disposition: Family discussion to be had in regards to goals of care. CCT: 0 Minutes; Level 3 inpatient This time is exclusive of all separately billable procedures. Thank you for involving us in the care of this patient. Please refer to Dr. Aaron Thompson's addendum for further recommendations. I have personally evaluated and examined this patient. I agree with assessment and plan of David Boss PA-C. Resting comfortably on nasal cannula. Advised son is anticipating arriving around 1pm today. No chest pain, mild nausea. DNR/DNI, no escalation of care. Palliative care consult ordered. Will transfer out of ICU today. Consults & Procedures Consultants: Pulmonary - Dr. Mejia Procedures: Endotracheal intubation 05/10/2017 IV infusion of Precedex IV infusion of fluids. IV infusion of medication Data Medications: Current Inpatient Medications Medications (Trade) Dose Ordered Sig/Yared Route Start Time Stop Time Status Last Admin Dose Admin Ondansetron HCl (Zofran Inj) 4 mg Q6H PRN IV 05/10/17 07:45 06/09/17 07:44 Lansoprazole (Prevacid Solutab) 30 mg DAILY PO 05/10/17 10:00 05/14/17 09:59 05/12/17 07:21 30 MG Furosemide 40 mg/ Syringe 4 ml @ 4 mls/min QAM IV 05/10/17 10:00 06/09/17 09:59 05/12/17 08:30 4 MLS/MIN Levothyroxine Sodium 37.5 mcg/ Syringe 1.875 ml @ 2 mls/min DAILY@0900 IV 05/10/17 11:00 06/09/17 10:59 05/12/17 08:33 2 MLS/MIN Metoprolol Tartrate (Lopressor Iv) 2.5 mg Q6 IV. 05/10/17 12:00 06/09/17 11:59 05/12/17 23:33 2.5 MG Miscellaneous Information (Consult Glycemic Management Pharmacy) 1 ea UD PRN N/A 05/10/17 10:15 06/09/17 10:14 Midazolam HCl (Versed Inj) 2 mg Q1H PRN IV 05/10/17 10:15 06/09/17 10:14 05/12/17 01:30 2 MG Doxycycline Hyclate 100 mg/ Dextrose 110 ml @ 55 mls/hr BID IV 05/10/17 21:00 05/17/17 20:59 05/12/17 21:32 55 MLS/HR Digoxin 125 mcg/ Syringe 10 ml @ 2 mls/min QAM IV 05/11/17 09:00 06/10/17 08:59 05/11/17 08:01 2 MLS/MIN Dexmedetomidine HCl 200 mcg/ Sodium Chloride 50 ml @ 0 mls/hr Q0M PRN IV 05/11/17 08:45 05/15/17 08:44 05/12/17 00:38 6.6 MLS/HR Insulin Glargine (Lantus Solostar Pen) QAM SC 05/11/17 09:00 06/10/17 08:59 05/11/17 09:12 5 UNITS Insulin Aspart (novoLOG ASPART) SLIDING SCALE Q6 SC 05/11/17 12:00 06/10/17 11:59 05/12/17 23:36 1 UNITS Apixaban (Eliquis Tab) 2.5 mg BID PO 05/11/17 21:00 06/10/17 20:59 05/12/17 21:33 2.5 MG Parenteral Electrolyte Solution 1,000 ml @ 75 mls/hr [id number] IV 05/11/17 15:00 06/10/17 14:59 05/12/17 17:22 75 MLS/HR Methylprednisolone Sodium Succinate 40 mg/Syringe 0.64 ml @ 1.5 mls/min Q12H IV 05/11/17 21:00 06/09/17 09:59 05/12/17 21:33 1.5 MLS/MIN Morphine Sulfate (MoRPHine SULFATE INJ) 1 mg Q15M PRN IV 05/12/17 11:00 05/26/17 10:59 05/13/17 00:47 1 MG Travoprost (Travatan Z) 1 drops HS OP 05/12/17 21:00 06/11/17 20:59 05/12/17 21:00 1 DROPS Polyethylene (Miralax Powder Packet) 17 gm DAILY PRN PO 05/13/17 00:30 06/12/17 00:29 Vital Signs: Date Time Temp Pulse Resp B/P (MAP) Pulse Ox O2 Delivery O2 Flow Rate FiO2 05/12/17 23:59 Nasal Cannula 4.0 05/12/17 23:33 120 163/91 05/12/17 20:00 BiPAP 30 05/12/17 20:00 92 100 30 05/12/17 18:11 76 97 30 05/12/17 18:00 84 34 198/125 (149) 98 BiPAP 30 05/12/17 17:24 83 168/79 05/12/17 16:00 36.8 92 28 153/74 (100) 97 BiPAP 30 05/12/17 16:00 97 BiPAP 30 05/12/17 14:00 76 20 140/90 (107) 97 BiPAP 30 05/12/17 13:44 81 96 30 05/12/17 12:00 95 BiPAP 30 05/12/17 12:00 36.6 69 24 141/77 (98) 96 BiPAP 30 05/12/17 11:34 59 05/12/17 10:42 71 97 30 05/12/17 10:00 73 25 131/71 (91) 92 Mechanical Ventilator 30 05/12/17 08:23 58 05/12/17 08:00 98 Mechanical Ventilator 30 05/12/17 08:00 36.5 72 26 153/79 (103) 99 Mechanical Ventilator 30 05/12/17 08:00 30 05/12/17 07:20 30 05/12/17 06:00 64 20 155/75 (101) 98 Mechanical Ventilator 05/12/17 06:00 52 05/12/17 05:50 30 05/12/17 04:00 36.4 61 15 144/80 (101) 95 Mechanical Ventilator 30 05/12/17 04:00 30 05/12/17 04:00 Mechanical Ventilator 30 05/12/17 02:41 30 Laboratory Results: Last 24 Hours Test 05/12/17 05:36 05/12/17 05:42 05/12/17 07:27 05/12/17 11:43 Bedside Glucose 118 mg/dl 146 mg/dl White Blood Count 11.19 K/uL Red Blood Count 3.79 M/uL Hemoglobin 11.8 g/dL Hematocrit 35.6 % Mean Corpuscular Volume 93.9 fL Mean Corpuscular Hemoglobin 31.1 pg Mean Corpuscular Hemoglobin Concent 33.1 g/dl Platelet Count 159 K/uL Mean Platelet Volume 10.6 fL Neutrophils (%) (Auto) 91.7 % Lymphocytes (%) (Auto) 4.6 % Monocytes (%) (Auto) 3.4 % Eosinophils (%) (Auto) 0.0 % Basophils (%) (Auto) 0.0 % Neutrophils # (Auto) 10.27 K/uL Lymphocytes # (Auto) 0.51 K/uL Monocytes # (Auto) 0.38 K/uL Eosinophils # (Auto) 0.00 K/uL Basophils # (Auto) 0.00 K/uL RDW Standard Deviation 50.1 fL RDW Coefficient of Variation 14.6 % Immature Granulocyte % (Auto) 0.3 % Immature Granulocyte # (Auto) 0.03 K/uL Sodium Level 139 mmol/L Potassium Level 3.5 mmol/L Chloride Level 102 mmol/L Carbon Dioxide Level 30 mmol/L Anion Gap 7.0 mmol/L Blood Urea Nitrogen 32 mg/dl Creatinine 0.67 mg/dl Est Creatinine Clear Calc Drug Dose 45.5 ml/min Estimated GFR () 92.2 Estimated GFR (Non- 79.6 BUN/Creatinine Ratio 47.8 Random Glucose 118 mg/dl Calcium Level 8.9 mg/dl Phosphorus Level 4.1 mg/dl Magnesium Level 2.2 mg/dl Procalcitonin 3.74 ng/ml Digoxin Level 1.4 ng/ml Blood Gas Sample Site L Radial Bedside Blood Gas pH (LAB) 7.47 Bedside Blood Gas pCO2 (LAB) 44 mmHg Bedside Blood Gas pO2 (LAB) 78 mmHg Bedside Blood Gas HCO3 (LAB) 32 meq/L Bedside Blood Gas Total CO2 33 mEq/l Bedside Blood Gas Base Excess (LAB) 8.0 meq/L Bedside Blood Gas O2 Saturation 96.0 % Onesimo Test Pass Oxygen Delivery Device Ventilator Bedside FiO2 30 % Blood Gas PEEP 5 Test 05/12/17 17:28 05/12/17 17:42 05/12/17 23:28 Bedside Glucose 128 mg/dl 161 mg/dl Digoxin Level 1.1 ng/ml Problem Qualifiers (1) CHF (congestive heart failure): Congestive heart failure type: combined Congestive heart failure chronicity: acute on chronic Qualified Codes: I50.43 - Acute on chronic combined systolic (congestive) and diastolic (congestive) heart failure
--- NOTE | 2017-05-13 04:00 | NUR ---
NO NEW CHANGES TO PHYSICAL ASSESSMENT AT THIS TIME. VSS. NO DISTRESS EVIDENT. DYSPNEIC W/ CONVERSATION, ANXIOUS AT TIMES. PURSE LIPPED BREATHING REVIEWED W/ PT. MORPHINE OFFERED TO HELP W/ INCREASING DYSPNEA, PT REFUSES, STATES SHE DOESN'T "WANT TO BECOME AN ADDICT". OFFERED TO HAVE HER PLACED BACK ON BIPAP, PT REFUSES. CALL GUERRA IN REACH, WILL CONTINUE TO MONITOR.
--- NOTE | 2017-05-13 04:15 | NUR ---
PT INSISTING ON CXR, "I CAN'T UNDERSTAND WHY I'M HAVING SO MUCH TROUBLE BREATHING". PT APPEARS COMFORTABLE, VSS. KYLE HILLMAN MADE AWARE
[2017-05-13] MEDS: METOPROLOL TARTRATE 1 MG/ML VIAL IV. SCH (05:52)
[2017-05-13] MEDS: INSULIN ASPART 100 UNITS/ML 3 ML PEN SC SCH ×2 (06:00→11:03)
--- NOTE | 2017-05-13 06:00 | NUR ---
RESTING IN BED, CONTINUES TO C/O SOB, "CAN'T BREATHE RIGHT". SWITCHED FROM OXYMASK TO NASAL CANNULA AT PT REQUEST. NO NEW ISSUES OR CONCERNS AT THIS TIME. VSS. CALL GUERRA IN REACH, WILL CONTINUE TO MONITOR.
[2017-05-13] MEDS: NORMOSOL R 1,000 ML IV SCH (06:03)
[2017-05-13 06:11] LABS: CALCIUM 8.9 mg/dl (8.5-10.1); CREATININE 0.91 mg/dl (0.60-1.20)
[2017-05-13 06:15] LABS: PHOSPHORUS 4.7 mg/dl (2.5-4.9)
[2017-05-13 06:21] LABS: BASO % 0.2 %; BASO ABS # 0.03 K/uL (0-0.2); HEMOGLOBIN 12.4 g/dL (12.0-16.0); IG# 0.11 K/uL (0.00-0.02); LYMPH % 3.1 %; LYMPH ABS # 0.46 K/uL (1.2-3.4); MEAN CELL VOLUME 93.4 fL (80-100); MEAN CORPUSCULAR HEMOGLOBIN 31.3 pg (25-34); MEAN CORPUSCULAR HGB CONC 33.5 g/dl (32-36); MEAN PLATELET VOLUME 10.9 fL (7.4-10.4); MONO % 5.3 %; MONO ABS # 0.77 K/uL (0.11-0.59); NEUT % 90.6 %; NEUT ABS # 13.25 K/uL (1.4-6.5); PLATELET COUNT 187 K/uL (130-400); RED CELL DISTRIBUTION WIDTH CV 14.8 % (11.5-14.5); RED CELL DISTRIBUTION WIDTH SD 50.7 fL (36.4-46.3); WHITE BLOOD COUNT 14.62 K/uL (4.8-10.8)
--- NOTE | 2017-05-13 07:30 | NUR ---
A: PT RESTING IN BED. PT ASSESSMENT CHARTED. PT IN NO DISTRESS. PT NO COMPLAINTS. PT DENIES PAIN. PT DENIES SOB. PT RESTLESS. PT NEGRON ON ANY MOLD EXERTION. PT EPISODES OF BEING UNCOOPERATIVE. PT VERBALLLY ABUSIVE TO RN. PT SWEARING AT RN. MANAGE TO CALMED PT DOWN. PT DENIES SOB. WILL CONTINUE TO MONITOR.
--- NOTE | 2017-05-13 08:15 | DIAGNOSTIC IMAGING REPORT ---
CHEST ONE VIEW PORTABLE CLINICAL HISTORY: Increasing shortness of breath COMPARISON STUDY: 05/12/2017 FINDINGS: The endotracheal tube and nasogastric tubes have been removed. The cardiac and mediastinal contours remain stable. There is persistent but improving pulmonary vascular congestion. There is a trace left pleural effusion. There is airspace opacities the left lung base, likely atelectatic.[ IMPRESSION: 1. Interval removal of the endotracheal tube and nasogastric tubes 2. Persistent but improving pulmonary vascular congestion 3. Trace left pleural effusion 4. Linear opacity at the left lung base, likely atelectatic Electronically signed by: Stephen Cobos M.D. 05/13/2017 8:13 AM Dictated Date/Time: 05/13/2017 8:12 AM
--- NOTE | 2017-05-13 08:18 | NUR ---
RD identified pt at nutrition risk d/t NPO/CL > 3 days, entered process plan. Noted that pt may transition to [employer] after speaking w/her son. Will continue to follow as previously determined and monitor plan of care.
[2017-05-13] MEDS: METHYLPREDNISOLONE IV 40 MG in SYRINGE 0 ML IV SCH (08:24)
[2017-05-13] MEDS: FUROSEMIDE INJ 40 MG in SYRINGE 0 ML IV SCH (08:24)
[2017-05-13] MEDS: DIGOXIN IV 125 MCG in SYRINGE 9.5 ML IV SCH (08:25)
[2017-05-13] MEDS: APIXABAN 2.5 MG TAB PO SCH ×2 (08:25→20:03)
[2017-05-13] MEDS: LEVOTHYROXINE SODIUM INJ 37.5 MCG in SYRINGE 0 ML IV SCH (08:25)
[2017-05-13] MEDS: LANSOPRAZOLE SOLUTAB 30 MG PO SCH (08:25)
[2017-05-13] MEDS: DOXYCYCLINE HYCLATE 100 MG in DEXTROSE 5% 100ML IV SCH (08:26)
[2017-05-13] MEDS: INSULIN GLARGINE SOLOSTAR 100 UNITS/ML 3 ML PEN SC SCH (08:27)
--- NOTE | 2017-05-13 09:30 | NUR ---
A: PT RESTING IN BED. PT ASSESSMENT UNCHANGED. PT IN NO NO DISTRESS. PT RESTLESS AND PERIODS OF BEING UNCOOPERATIVE AND YELLING AT RN. WILL CONTINUE TO MONITOR.
--- NOTE | 2017-05-13 09:57 | Pulmonology Progress Note ---
Pulmonary Progress Note Date of Service May 13, 2017. Attending Dr. Mejia Subjective Patient seen and examined at bedside. She denies any chest pain. She states that she is still short of breath and has intermittent cough. She also complains of sore throat. Refusing most interventions, including BIPAP. Objective Vital signs reviewed. Tm 36.4, BP 96/79-198/112, P 82-115, RR22, 92-99% on 5L NC. Currently 1 L +. Gen.: Awake alert oriented 3, less agitated this morning. Hard of hearing CVS: S1-S2, irregularly irregular Chest: Diminished breath sounds bilaterally, tachypneic, using accessory muscles of respiration Abdomen: Soft, nontender, nondistended, bowel sounds positive Extremities: No edema, no cyanosis, no clubbing Labs reviewed White blood cell count 14today. Hemoglobin stable at 12. Platelets 187. Pro-calcitonin 3.74 05/12/2017 Sputum culture 05/10/2017: Scant normal chen Imaging reviewed. Medications reviewed. CXR 05/13/2017: Persistent but improving pulmonary vascular congestion Trace left pleural effusion Linear opacity at the left lung base, likely atelectatic Chest x-ray 05/12/2017: Mild pulmonary vascular congestion. Trace bilateral pleural effusions. EKG 05/12/2017: shows new LBBB consistent with STEMI Assessment & Plan Acute on chronic hypoxemic hypercapnic respiratory failure Pulmonary edema Hypertensive emergency Diastolic congestive heart failure Severe COPD on LTOT on chronic steroids Elevated right heart pressure Right upper lobe 1.2 cm nodule Atrial fibrillation on Eliquis Aortic stenosis s/p TAVR New LBBB STEMI Ms. Lane has had a complicated course over the last several months with progressive decline in her respiratory status. She is well known to pulmonary service and is a patient of Dr. Rucker. She was intubated for acute on chronic hypoxic respiratory failure likely secondary to decompensated diastolic heart failure. She is also on antibiotic therapy for pneumonia. White blood cell count continues to decrease, but procalcitonin still remains elevated. She is status post extubation 05/12/2017, but appears to be continuously agitated and tachypnea. Recent EKG, shows new LBBB consistent with STEMI. Recommendations Continue with nasal canula to maintain SaO2 between 88-92%. Use BIPAP prn as tolerated. Per patient and family, she will remain DNR/DNI if she should further decompensate. Continue with morphine when necessary for dyspnea and Ativan for anxiety. Continue with broads spectrum antibiotics, as per calcitonin still remains elevated despite normal chen in sputum. Taper solumedrol as tolerated. Recommend albuterol/ ipratropium standing dose. Continue with BP control, per cardiology and ICU management. STEMI, not a candidate for PCI. Continue with diuresis as kidney function tolerates. Continue with Eliquis for anticoagulation for afib. Right upper lobe nodule 1.2 cm, spiculated and unchanged in last few CT chest. She should have further surveillance and work up per Dr. Rucker as outpatient. Her overall prognosis is poor. Recommend palliative care consult to address her overall goal of care. Will continue to follow with you Data Medications: Current Inpatient Medications Medications (Trade) Dose Ordered Sig/Yared Route Start Time Stop Time Status Last Admin Dose Admin Ondansetron HCl (Zofran Inj) 4 mg Q6H PRN IV 05/10/17 07:45 06/09/17 07:44 Lansoprazole (Prevacid Solutab) 30 mg DAILY PO 05/10/17 10:00 05/14/17 09:59 05/13/17 08:25 30 MG Furosemide 40 mg/ Syringe 4 ml @ 4 mls/min QAM IV 05/10/17 10:00 06/09/17 09:59 05/13/17 08:24 4 MLS/MIN Levothyroxine Sodium 37.5 mcg/ Syringe 1.875 ml @ 2 mls/min DAILY@0900 IV 05/10/17 11:00 06/09/17 10:59 05/13/17 08:25 2 MLS/MIN Metoprolol Tartrate (Lopressor Iv) 2.5 mg Q6 IV. 05/10/17 12:00 06/09/17 11:59 05/13/17 05:52 2.5 MG Miscellaneous Information (Consult Glycemic Management Pharmacy) 1 ea UD PRN N/A 05/10/17 10:15 06/09/17 10:14 Midazolam HCl (Versed Inj) 2 mg Q1H PRN IV 05/10/17 10:15 06/09/17 10:14 05/12/17 01:30 2 MG Doxycycline Hyclate 100 mg/ Dextrose 110 ml @ 55 mls/hr BID IV 05/10/17 21:00 05/17/17 20:59 05/13/17 08:26 55 MLS/HR Digoxin 125 mcg/ Syringe 10 ml @ 2 mls/min QAM IV 05/11/17 09:00 06/10/17 08:59 05/13/17 08:25 2 MLS/MIN Dexmedetomidine HCl 200 mcg/ Sodium Chloride 50 ml @ 0 mls/hr Q0M PRN IV 05/11/17 08:45 05/15/17 08:44 05/12/17 00:38 6.6 MLS/HR Insulin Glargine (Lantus Solostar Pen) QAM SC 05/11/17 09:00 06/10/17 08:59 05/13/17 08:27 5 UNITS Insulin Aspart (novoLOG ASPART) SLIDING SCALE Q6 SC 05/11/17 12:00 06/10/17 11:59 05/12/17 23:36 1 UNITS Apixaban (Eliquis Tab) 2.5 mg BID PO 05/11/17 21:00 06/10/17 20:59 05/13/17 08:25 2.5 MG Parenteral Electrolyte Solution 1,000 ml @ 75 mls/hr [id number] IV 05/11/17 15:00 06/10/17 14:59 05/13/17 06:03 75 MLS/HR Methylprednisolone Sodium Succinate 40 mg/Syringe 0.64 ml @ 1.5 mls/min Q12H IV 05/11/17 21:00 06/09/17 09:59 05/13/17 08:24 1.5 MLS/MIN Morphine Sulfate (MoRPHine SULFATE INJ) 1 mg Q15M PRN IV 05/12/17 11:00 05/26/17 10:59 05/13/17 08:26 1 MG Travoprost (Travatan Z) 1 drops HS OP 05/12/17 21:00 06/11/17 20:59 05/12/17 21:00 1 DROPS Polyethylene (Miralax Powder Packet) 17 gm DAILY PRN PO 05/13/17 00:30 06/12/17 00:29 Vital Signs: Date Time Temp Pulse Resp B/P (MAP) Pulse Ox O2 Delivery O2 Flow Rate FiO2 05/13/17 08:25 90 05/13/17 07:30 Nasal Cannula 5.0 05/13/17 07:30 36.4 82 22 183/105 (131) 95 Nasal Cannula 5.0 05/13/17 05:52 87 198/112 05/13/17 05:02 90 198/112 (140) 96 05/13/17 04:57 89 145/95 (112) 97 05/13/17 04:03 100 145/95 (112) 99 05/13/17 04:00 Nasal Cannula 5.0 05/13/17 02:00 115 22 96/79 (85) 92 Nasal Cannula 5.0 05/12/17 23:59 Nasal Cannula 4.0 05/12/17 23:33 120 163/91 05/12/17 20:00 BiPAP 30 05/12/17 20:00 92 100 30 05/12/17 18:11 76 97 30 05/12/17 18:00 84 34 198/125 (149) 98 BiPAP 30 05/12/17 17:24 83 168/79 05/12/17 16:00 36.8 92 28 153/74 (100) 97 BiPAP 30 05/12/17 16:00 97 BiPAP 30 05/12/17 14:00 76 20 140/90 (107) 97 BiPAP 30 05/12/17 13:44 81 96 30 05/12/17 12:00 95 BiPAP 30 05/12/17 12:00 36.6 69 24 141/77 (98) 96 BiPAP 30 05/12/17 11:34 59 05/12/17 10:42 71 97 30 05/12/17 10:00 73 25 131/71 (91) 92 Mechanical Ventilator 30 Laboratory Results: Last 24 Hours Test 05/12/17 11:43 05/12/17 17:28 05/12/17 17:42 05/12/17 23:28 Bedside Glucose 146 mg/dl 128 mg/dl 161 mg/dl Digoxin Level 1.1 ng/ml Test 05/13/17 05:26 05/13/17 06:01 05/13/17 06:10 Sodium Level 139 mmol/L Potassium Level 4.0 mmol/L Chloride Level 102 mmol/L Carbon Dioxide Level 29 mmol/L Anion Gap 8.0 mmol/L Blood Urea Nitrogen 46 mg/dl Creatinine 0.91 mg/dl Est Creatinine Clear Calc Drug Dose 33.5 ml/min Estimated GFR () 66.2 Estimated GFR (Non- 57.1 BUN/Creatinine Ratio 50.3 Random Glucose 142 mg/dl Calcium Level 8.9 mg/dl Phosphorus Level 4.7 mg/dl Magnesium Level 2.5 mg/dl Bedside Glucose 146 mg/dl White Blood Count 14.62 K/uL Red Blood Count 3.96 M/uL Hemoglobin 12.4 g/dL Hematocrit 37.0 % Mean Corpuscular Volume 93.4 fL Mean Corpuscular Hemoglobin 31.3 pg Mean Corpuscular Hemoglobin Concent 33.5 g/dl Platelet Count 187 K/uL Mean Platelet Volume 10.9 fL Neutrophils (%) (Auto) 90.6 % Lymphocytes (%) (Auto) 3.1 % Monocytes (%) (Auto) 5.3 % Eosinophils (%) (Auto) 0.0 % Basophils (%) (Auto) 0.2 % Neutrophils # (Auto) 13.25 K/uL Lymphocytes # (Auto) 0.46 K/uL Monocytes # (Auto) 0.77 K/uL Eosinophils # (Auto) 0.00 K/uL Basophils # (Auto) 0.03 K/uL RDW Standard Deviation 50.7 fL RDW Coefficient of Variation 14.8 % Immature Granulocyte % (Auto) 0.8 % Immature Granulocyte # (Auto) 0.11 K/uL
[2017-05-13] MEDS: ONDANSETRON INJ 2 MG/ML 2 ML VIAL IV PRN ×2 (10:44→19:54)
[2017-05-13] MEDS ORDERED: METOPROLOL TARTRATE 25 MG TAB PO ONE (10:45)
--- NOTE | 2017-05-13 10:56 | Pharmacy Progress Note ---
Glycemic Control Progress Note Date of Service May 13, 2017. Scope Glycemic Pharmacist consulted for glycemic control to write orders per [facility] inpatient glycemic control protocol. Objective Accuchecks BSG (last 24hrs): Test 05/12/17 11:43 05/12/17 17:28 05/12/17 23:28 05/13/17 05:26 Bedside Glucose 146 mg/dl (70-90) 128 mg/dl (70-90) 161 mg/dl (70-90) Random Glucose 142 mg/dl (70-99) Test 05/13/17 06:01 Bedside Glucose 146 mg/dl (70-90) HbA1c: Test 05/11/17 05:12 Hemoglobin A1c 5.9 % (4.5-5.6) H Recent Pertinent Medications The patient is currently receiving: * Basal insulin: Lantus SQ Q AM per scale: 0 units if BSG 140 or less; 5 units if BSG above 140 * Correctional Insulin: Novolog Correction per scale ACHS Goal Range: Low 120 mg/dL - High 160 mg/dL Correction Factor: 40 mg/dL/unit * Prandial insulin: Per carb ratio of 1 unit per 13 grams CHO consumed * Oral Agents: None currently Outpatient Anti-Diabetic Meds no prior h/o DM; A1c not consistent with DM however, rather impaired glucose tolerance likely Assessment & Plan ASSESSMENT: 05/12/17 * BSGs have ranged 118-144 over the last 24 hrs despite ongoing stressors * Patient was extubated this AM * IV steroid dose continues as Solu-medrol 40mg IV Q 12 hrs; IV ABX also continue; she remains NPO but this will likely change today * The current insulin doses are appropriately low given the BSG trend and lack of CHO intake * Plan to continue with the same insulin orders for now, but if she requires no insulin in the next 24 hours w/ acceptable control may consider discontinuation of CR and basal insulin orders 05/13/17 * BSGs have ranged 128-161 over the last 24 hours * Patient's steroid dose being tapered again today * She remains NPO * Fasting BSGs did climb somewhat yesterday with no basal insulin on board. She did receive 5 units of Lantus this AM however. Continuing the current Lantus order seems appropriate given she is still to receive steroids. * Thus far insulin orders are adequate. If patient does being to eat we will see if the CR is adequate to prevent post-prandial hyperglycemia. PLAN FOR INPATIENT GLYCEMIC CONTROL: * Continuing Lantus SQ Q AM: 0 units if BSG 140 or less; 5 units if BSG above 140 * Continuing correction factor of 40 mg/dl/unit * Continuing carb ratio of 1 unit per 13 grams CHO consumed * Continuing goal range of Low 120 mg/dL - High 160 mg/dL * Taper insulin doses as steroid dose tapered * Please note that the plan above was derived based on current level of insulin resistance and hospital stress. These recommendations are appropriate for inpatient admission only. Plan of care upon discharge will need to be reassessed to avoid potential outpatient hypo/hyperglycemia. Thank you.
--- NOTE | 2017-05-13 11:32 | NUR ---
A: PT RESTING IN BED. PT ASSESSMENT CHARTED. PT IN NO DISTRESS. PT NO COMPLAINTS, EXCEPT FOR NAUSEA. PT RESTLESS AND AGITATED, IWTH PERIODS OF SLEEPING. WILL CONTINUE TO MONITOR.
--- NOTE | 2017-05-13 12:00 | NUR ---
A; PT TO TRANSFER TO MED-SURG. AWAITING ROOM. MONITOR D/C.
--- NOTE | 2017-05-13 13:20 | NUR ---
A: PT TO TRANSFER UP TO ROOM 410. REPORT CALLED. PT REFUSING OT BE TRANSFERRED. PER PT REQUEST RN SUPERVISOR NUCLE[employer] MEDICINE CALLED. RN SUPERVISOR NUC[employer] MEDIC[employer] CONVINCED PT TO BE TRANSFERRED. PT'S SON ARRIVED AT BEDSIDE. DR. RHODES CAME AND TALKED WITH PT AND PT'S SON AT BEDSIDE. PT AGREED TO TRANSFER. PT TAKEN TO ROOM 410 VIA BED.
--- NOTE | 2017-05-13 14:15 | NUR ---
A: patient arrived via bed. Son present. Assessment obtained. safety reviewed, call mehta within reach. will continue to monitor
[2017-05-13] MEDS ORDERED: ONDANSETRON INJ 2 MG/ML 2 ML VIAL IV ONE (15:00)
[2017-05-13] MEDS ORDERED: NURSING VERBAL MED ORDER ONE (15:00)
[2017-05-13] MEDS: DIGOXIN 0.125 MG TAB PO SCH (16:53)
--- NOTE | 2017-05-13 18:11 | Progress Note ---
Subjective Date of Service: May 13, 2017. Subjective Patient has no new complaints, except for the fact that she would like to get her insulin stopped. She states that whatever I decide with her son is fine with her in regards to code status. Problem List Medical Problems: (1) Acute bronchitis Status: Acute (2) Allergic reaction Status: Acute (3) CHF (congestive heart failure) Status: Acute (4) CHF exacerbation Status: Acute (5) Elevated troponin Status: Acute (6) Hypokalemia Status: Acute (7) Hyponatremia Status: Acute (8) Hypoxia Status: Acute (9) Hypoxia Status: Acute (10) Hypoxia Status: Chronic (11) Hypoxia Status: Acute (12) PNA (pneumonia) Status: Acute (13) Pneumonia Status: Acute (14) Pulmonary edema Status: Acute (15) Rapid atrial fibrillation Status: Acute (16) Respiratory failure Status: Acute (17) Respiratory failure Status: Acute (18) Sepsis Status: Acute (19) Weakness Status: Acute Objective Vital Signs Date Time Temp Pulse Resp B/P (MAP) Pulse Ox O2 Delivery O2 Flow Rate FiO2 05/13/17 17:59 86 Nasal Cannula 5.0 30 05/13/17 16:53 78 05/13/17 16:31 36.0 83 20 151/81 (104) 100 Nasal Cannula 5.0 05/13/17 14:40 86 Nasal Cannula 5.0 30 05/13/17 14:00 36.4 84 23 174/81 (112) 86 Nasal Cannula 5.0 05/13/17 12:01 36.4 82 22 95 5.0 05/13/17 11:25 Nasal Cannula 5.0 05/13/17 09:30 36.4 82 22 163/85 (111) 95 Nasal Cannula 5.0 05/13/17 08:25 90 05/13/17 07:30 Nasal Cannula 5.0 05/13/17 07:30 36.4 82 22 183/105 (131) 95 Nasal Cannula 5.0 05/13/17 05:52 87 198/112 05/13/17 05:02 90 198/112 (140) 96 05/13/17 04:57 89 145/95 (112) 97 05/13/17 04:03 100 145/95 (112) 99 05/13/17 04:00 Nasal Cannula 5.0 05/13/17 02:00 115 22 96/79 (85) 92 Nasal Cannula 5.0 05/12/17 23:59 Nasal Cannula 4.0 05/12/17 23:33 120 163/91 05/12/17 20:00 BiPAP 30 05/12/17 20:00 92 100 30 Physical Exam Comments: General Appearance: + pertinent finding (Appears to be in mild distress gasping for air.) Eyes: normal inspection, PERRL ENT: normal ENT inspection Neck: supple, no adenopathy Respiratory/Chest: chest non-tender, + decreased breath sounds, + accessory muscle use, + stridor, + wheezing Cardiovascular: regular rate, rhythm, no edema Abdomen: normal bowel sounds, non tender, soft Extremities: normal inspection Neurologic/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: 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 nml as tested Skin: normal color Lymphatic: no adenopathy Laboratory Results Last 24 Hours Test 05/12/17 23:28 05/13/17 05:26 05/13/17 06:01 05/13/17 06:10 Bedside Glucose 161 mg/dl 146 mg/dl Sodium Level 139 mmol/L Potassium Level 4.0 mmol/L Chloride Level 102 mmol/L Carbon Dioxide Level 29 mmol/L Anion Gap 8.0 mmol/L Blood Urea Nitrogen 46 mg/dl Creatinine 0.91 mg/dl Est Creatinine Clear Calc Drug Dose 33.5 ml/min Estimated GFR () 66.2 Estimated GFR (Non- 57.1 BUN/Creatinine Ratio 50.3 Random Glucose 142 mg/dl Calcium Level 8.9 mg/dl Phosphorus Level 4.7 mg/dl Magnesium Level 2.5 mg/dl White Blood Count 14.62 K/uL Red Blood Count 3.96 M/uL Hemoglobin 12.4 g/dL Hematocrit 37.0 % Mean Corpuscular Volume 93.4 fL Mean Corpuscular Hemoglobin 31.3 pg Mean Corpuscular Hemoglobin Concent 33.5 g/dl Platelet Count 187 K/uL Mean Platelet Volume 10.9 fL Neutrophils (%) (Auto) 90.6 % Lymphocytes (%) (Auto) 3.1 % Monocytes (%) (Auto) 5.3 % Eosinophils (%) (Auto) 0.0 % Basophils (%) (Auto) 0.2 % Neutrophils # (Auto) 13.25 K/uL Lymphocytes # (Auto) 0.46 K/uL Monocytes # (Auto) 0.77 K/uL Eosinophils # (Auto) 0.00 K/uL Basophils # (Auto) 0.03 K/uL RDW Standard Deviation 50.7 fL RDW Coefficient of Variation 14.8 % Immature Granulocyte % (Auto) 0.8 % Immature Granulocyte # (Auto) 0.11 K/uL Test 05/13/17 10:59 Bedside Glucose 211 mg/dl Assessment and Plan 87 yo female known for multiple admissions for her severe COPD is admitted with Extubated patient on Sunday discussed with patient code status and prognosis patient understands she is end stage After discussing code status with son, will continue with current management but will not escalate her treatment This will include the morphine for air hunger. The doxycycline for HCAP. Stop any further testing including accuchecks. Will consult palliative care later this week. will continue current plan of care. Ischemic changes noted on EKG Patient would require PCI, however, she would then need to be reintubated and this will go against patient wishes ACUTE HYPOXIC RESPIRATORY FAILURE Patient is extubated Prednisone 10 milligrams daily at home HCAP -doxycycline Previous admissions patient was DNR however no POST form is noted. Morphine for air hunger H/O of CHF Probable CHF exacerbation As patient has signs of pulmonary edema Will have patient on Furosemide and monitor her Is and Os \ DVT PROPHYLAXIS Eliquis held in the event that procedures are needed TEDs / SCDs ordered I spoke with son who was with me at bedside with patient.
[2017-05-13] MEDS: DOXYCYCLINE HYCLATE 100 MG CAP PO SCH (20:03)
[2017-05-13] MEDS: METOPROLOL TARTRATE 25 MG TAB PO SCH (20:04)
[2017-05-13] MEDS: TRAVOPROST Z 0.004% OPH SOLN 2.5 ML BTL OP SCH (20:05)
[2017-05-13] MEDS ORDERED: TRAVOPROST Z 0.004% OPH SOLN 2.5 ML BTL OP SCH (21:00)
--- NOTE | 2017-05-13 22:15 | NUR ---
ID: Pt A/Ox4. Lethargic at this time from SOB from talking with son. Pt pleasant with most care, outburts of agitation at time. 5L 02 NC on. Mejia patent and draining a clear yellow urine. Saline lock to b/l forearms. For full assessment see EMR. Pt from home with caregivers, wanting to be comfort measures. Case management following. Q1H rounding maintained and call mehta within reach. Bed alarm on for safety. Will continue to monitor.
[2017-05-14] VITALS (7 sets, daily range): BP systolic 164–182; BP diastolic 84–98; PULSE 76–85; TEMP 36.3–36.5; O2SAT 96–100
[2017-05-14] MEDS: LEVOTHYROXINE 75 MCG TAB PO SCH (06:20)
[2017-05-14] MEDS: METOPROLOL TARTRATE 25 MG TAB PO SCH ×2 (08:00→20:36)
[2017-05-14] MEDS: APIXABAN 2.5 MG TAB PO SCH ×2 (08:00→20:16)
[2017-05-14] MEDS: DOXYCYCLINE HYCLATE 100 MG CAP PO SCH ×2 (08:00→20:16)
[2017-05-14] MEDS: FUROSEMIDE 40 MG TAB PO SCH (08:00)
[2017-05-14] MEDS: LANSOPRAZOLE SOLUTAB 30 MG PO SCH (08:00)
--- NOTE | 2017-05-14 10:49 | PULMONARY PROGRESS NOTE ---
DATE: 05/14/2017 ATTENDING PHYSICIAN: Dr. Mejia. SUBJECTIVE: The patient is extremely hard of hearing, but able to converse with me in a soft whisper. She denies pleuritic chest pain or shortness of breath. She does have a dry intermittent cough, but feels that it is improving. She has refused BiPAP therapy in the recent past. She is a patient of Dr. Rucker and has undergone intubation with mechanical ventilator assistance for [id number] hypoxemic hypercapnic respiratory failure in the remote past. A right upper lobe spiculated nodule is being followed and apparently has not grown or changed in comparison to previous CAT scans over the past year. OBJECTIVE: CURRENT VITAL SIGNS: Temperature 36.3, pulse 85 and regular, respiratory rate 22, blood pressure 171/88. She is saturating 100% on 5 liters. SKIN: Without lesion. HEENT: Atraumatic, normocephalic. PERRLA, EOMI. Conjunctivae pale. Sclerae nonicteric. Fundi grade 1 changes. NECK: Neck veins are not distended at 45 degrees. LUNGS: Some fine rales at the bases, otherwise distant P&A. I do not appreciate any audible wheezing or evidence for consolidation. CARDIAC EXAM: Regular rate and rhythm. I do not appreciate any gallop. PMI nondisplaced. ABDOMEN: Soft, scaphoid. No evidence for hepatosplenomegaly. Active bowel sounds. EXTREMITIES: Trace pedal edema. No clubbing. Peripheral cyanosis. NEUROLOGIC: Intact without obvious lateralizing signs. The patient is very hard of hearing and has difficulty following some commands. LABORATORY DATA: Sputum culture reportedly grew out normal chen. Blood cultures negative x2. White count yesterday was 14,600, H&H 12.4 and 37, BUN 46, creatinine 0.9, magnesium 2.5. Chest x-ray yesterday showed interval removal of the endotracheal and nasogastric tube, improving pulmonary vascular congestion, trace left pleural effusion and atelectasis at the left base noted. OVERALL ASSESSMENT: 1. [id number] hypoxemic hypercapnic respiratory failure, pulmonary edema. 2. Moderately severe hypertension. 3. Diastolic congestive heart failure. 4. Severe chronic obstructive pulmonary disease, on chronic O2 and steroid therapy. 5. Cor pulmonale. 6. Spiculated right upper lobe 1.2 cm nodule. 7. Chronic atrial fibrillation, on Eliquis. 8. Aortic stenosis, status post transcatheter aortic valve replacement. 9. ST-elevation myocardial infarction. RECOMMENDATIONS: I would continue current oxygen as ordered, maintaining saturations between 88% and 92%. The patient has refused BiPAP and is currently a DNR according to the notations. I would continue to taper steroid therapy to an oral dose. Continue aerosolized bronchodilator, continue diuresis with careful attention to her renal profile. We will continue to follow her right upper lobe pulmonary nodule, though doubt seriously any significant intervention would be carried out if there was sign of growth or change in its morphology. Dr. Rucker will see the patient as an outpatient. Thank you for allowing us to participate in the care of this patient.
[2017-05-14] MEDS: DIGOXIN 0.125 MG TAB PO SCH (16:22)
[2017-05-14] MEDS: TRAVOPROST Z 0.004% OPH SOLN 2.5 ML BTL OP SCH (20:16)
--- NOTE | 2017-05-14 22:10 | Progress Note ---
Subjective Date of Service: May 14, 2017. Subjective Pt evaluation today including: chart review Patient resting comfortably today. Son is not in the room. Problem List Medical Problems: (1) Acute bronchitis Status: Acute (2) Allergic reaction Status: Acute (3) CHF (congestive heart failure) Status: Acute (4) CHF exacerbation Status: Acute (5) Elevated troponin Status: Acute (6) Hypokalemia Status: Acute (7) Hyponatremia Status: Acute (8) Hypoxia Status: Acute (9) Hypoxia Status: Acute (10) Hypoxia Status: Chronic (11) Hypoxia Status: Acute (12) PNA (pneumonia) Status: Acute (13) Pneumonia Status: Acute (14) Pulmonary edema Status: Acute (15) Rapid atrial fibrillation Status: Acute (16) Respiratory failure Status: Acute (17) Respiratory failure Status: Acute (18) Sepsis Status: Acute (19) Weakness Status: Acute Medications Current Inpatient Medications Medications (Trade) Dose Ordered Sig/Yared Route Start Time Stop Time Status Last Admin Dose Admin Ondansetron HCl (Zofran Inj) 4 mg Q6H PRN IV 05/10/17 07:45 06/09/17 07:44 05/13/17 19:54 4 MG Midazolam HCl (Versed Inj) 2 mg Q1H PRN IV 05/10/17 10:15 06/09/17 10:14 05/12/17 01:30 2 MG Apixaban (Eliquis Tab) 2.5 mg BID PO 05/11/17 21:00 06/10/17 20:59 05/14/17 20:16 2.5 MG Morphine Sulfate (MoRPHine SULFATE INJ) 1 mg Q15M PRN IV 05/12/17 11:00 05/26/17 10:59 05/13/17 10:12 1 MG Travoprost (Travatan Z) 1 drops HS OP 05/12/17 21:00 06/11/17 20:59 05/14/17 20:16 1 DROPS Polyethylene (Miralax Powder Packet) 17 gm DAILY PRN PO 05/13/17 00:30 06/12/17 00:29 Digoxin (Lanoxin Tab) 0.125 mg DAILY@16 PO 05/13/17 16:00 06/12/17 15:59 05/14/17 16:22 0.125 MG Doxycycline Hyclate (Vibramycin Cap) 100 mg BID PO 05/13/17 20:00 05/20/17 08:01 05/14/17 20:16 100 MG Furosemide (Lasix Tab) 40 mg QAM PO 05/14/17 08:00 06/13/17 08:59 05/14/17 08:00 40 MG Levothyroxine Sodium (Synthroid Tab) 75 mcg DAILYBB PO 05/14/17 06:00 06/13/17 05:59 05/15/17 06:42 75 MCG Prednisone (PredniSONE TAB) 30 mg DAILY PO 05/14/17 08:00 06/13/17 08:59 05/14/17 08:00 30 MG Metoprolol Tartrate (Lopressor Tab) 12.5 mg BID PO 05/13/17 20:00 06/12/17 20:59 05/14/17 20:36 12.5 MG Objective Vital Signs Date Time Temp Pulse Resp B/P (MAP) Pulse Ox O2 Delivery O2 Flow Rate FiO2 05/14/17 20:37 76 182/98 (126) 05/14/17 16:22 88 05/14/17 16:00 100 Nasal Cannula 4.0 05/14/17 15:48 36.4 78 20 164/93 (116) 99 Nasal Cannula 4.5 05/14/17 10:00 100 Nasal Cannula 5.0 30 05/14/17 07:34 36.3 85 22 171/88 (115) 100 Nasal Cannula 5.0 05/14/17 00:55 36.5 76 22 173/84 (113) 96 5.0 05/14/17 00:00 Nasal Cannula 5.0 Physical Exam Comments: General Appearance: + pertinent finding (Appears to be in mild distress gasping for air.) Eyes: normal inspection, PERRL ENT: normal ENT inspection Neck: supple, no adenopathy Respiratory/Chest: chest non-tender, + decreased breath sounds, + accessory muscle use, + stridor, + wheezing Cardiovascular: regular rate, rhythm, no edema Abdomen: normal bowel sounds, non tender, soft Extremities: normal inspection Neurologic/Psychiatric: cell coverer II-XII nml as tested Skin: normal color Lymphatic: no adenopathy Assessment and Plan 87 yo female known for multiple admissions for her severe COPD is admitted with Extubated patient on Sunday No change today discussed with patient code status and prognosis on Sunday patient understands she is end stage After discussing code status with son yesterday, will continue with current management but will not escalate her treatment This will include the morphine for air hunger. The doxycycline for HCAP. Stop any further testing including accuchecks. Will consult palliative care later this week. will continue current plan of care. Ischemic changes noted on EKG Patient would require PCI, however, she would then need to be reintubated and this will go against patient wishes ACUTE HYPOXIC RESPIRATORY FAILURE Patient is extubated Prednisone 10 milligrams daily at home HCAP -doxycycline Previous admissions patient was DNR however no POST form is noted. Morphine for air hunger H/O of CHF Probable CHF exacerbation As patient has signs of pulmonary edema Will have patient on Furosemide and monitor her Is and Os DVT PROPHYLAXIS Eliquis held in the event that procedures are needed TEDs / SCDs ordered
[2017-05-15 00:16] VITALS: BP 174/90; PULSE 66; TEMP 36.7; O2SAT 100
[2017-05-15] MEDS: LEVOTHYROXINE 75 MCG TAB PO SCH (06:42)
[2017-05-15 07:28] VITALS: BP 180/96; PULSE 69; TEMP 36.5; O2SAT 99
[2017-05-15] MEDS: METOPROLOL TARTRATE 25 MG TAB PO SCH ×2 (08:42→21:42)
[2017-05-15] MEDS: DOXYCYCLINE HYCLATE 100 MG CAP PO SCH ×2 (08:42→21:41)
[2017-05-15] MEDS: APIXABAN 2.5 MG TAB PO SCH ×2 (08:43→21:41)
[2017-05-15] MEDS: FUROSEMIDE 40 MG TAB PO SCH (08:43)
[2017-05-15 10:00] VITALS: BP 164/86
[2017-05-15 10:21] VITALS: O2SAT 96
[2017-05-15 15:56] VITALS: BP 146/77; PULSE 81; TEMP 36.2; O2SAT 98
--- NOTE | 2017-05-15 16:30 | NUR ---
Talked about patient at rounds today. Acute care continues. Patient may need a rehab setting post discharge. Will follow for discharge planning.
--- NOTE | 2017-05-15 16:52 | Progress Note ---
Subjective Date of Service: May 15, 2017. Subjective pt is in her usual state, accompanied by her son, they were both updated at the bedside. she has many somatic complaints and mostly is concerned about sore throat after intubation and some diarrhea. 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 and refuses to take any Problem List Medical Problems: (1) Acute bronchitis Status: Acute (2) Allergic reaction Status: Acute (3) CHF (congestive heart failure) Status: Acute (4) CHF exacerbation Status: Acute (5) Elevated troponin Status: Acute (6) Hypokalemia Status: Acute (7) Hyponatremia Status: Acute (8) Hypoxia Status: Acute (9) Hypoxia Status: Acute (10) Hypoxia Status: Chronic (11) Hypoxia Status: Acute (12) PNA (pneumonia) Status: Acute (13) Pneumonia Status: Acute (14) Pulmonary edema Status: Acute (15) Rapid atrial fibrillation Status: Acute (16) Respiratory failure Status: Acute (17) Respiratory failure Status: Acute (18) Sepsis Status: Acute (19) Weakness Status: Acute Review of Systems Constitutional: + weakness, + fatigue ENT: + sore throat, No trouble swallowing Respiratory: No cough, No shortness of breath Cardiac: No chest pain, No PND, No edema Abdomen: + diarrhea, No pain Musculoskeletal: No joint pain, No muscle pain Objective Vital Signs Date Time Temp Pulse Resp B/P (MAP) Pulse Ox O2 Delivery O2 Flow Rate FiO2 05/15/17 15:56 36.2 81 20 146/77 (100) 98 Nasal Cannula 5.0 05/15/17 10:21 96 Nasal Cannula 5.0 05/15/17 10:00 164/86 (112) 05/15/17 07:28 36.5 69 18 180/96 (124) 99 Nasal Cannula 5.0 05/15/17 00:16 36.7 66 16 174/90 (118) 100 Nasal Cannula 5.0 05/15/17 00:00 Nasal Cannula 5.0 05/14/17 22:17 179/84 (115) 05/14/17 20:37 76 182/98 (126) Physical Exam General Appearance: + mild distress, + thin ENT: hearing grossly normal, pharynx normal Neck: supple, no JVD Respiratory/Chest: chest non-tender, no respiratory distress, + decreased breath sounds Cardiovascular: regular rate, rhythm, + systolic murmur Abdomen: normal bowel sounds, non tender, soft Neurologic/Psychiatric: alert, oriented x 3 Assessment and Plan 87 yo female known for multiple admissions for her severe COPD is admitted with respiratory failure requiring mechanical ventilation, now extubated and returning to her baseline Extubated patient on Sunday 05/13 Dr Sutton discusses illness with patient and patient understands she is end stage Dr Mccoy has disucssed with family, continue current treatment but no escalation This will include the morphine for air hunger, pt now is concerned about addiction and wants to stop it The doxycycline for HCAP last dose 05/16. Stop any further testing including accuchecks. Will consult palliative care Ischemic changes noted on EKG Patient would require PCI, however, she would then need to be reintubated and this will go against patient wishes ACUTE HYPOXIC RESPIRATORY FAILURE Prednisone taper to 20 milligrams daily HCAP -doxycycline Previous admissions patient was DNR however no POLST form is noted. Morphine for air hunger H/O of Chronic Systolic CHF, afib, continue digoxin and b ginny , discussed only taking po fluids if she is thirsty, appears euvolemic at this time treat clinically with Furosemide and monitor her Is and Os DVT PROPHYLAXIS Eliquis used for dvt and thromboembolism prophylaxis TEDs / SCDs ordered
[2017-05-15] MEDS: DIGOXIN 0.125 MG TAB PO SCH (16:55)
[2017-05-15] MEDS ORDERED: COUGH DROP (SUGAR FREE) LOZ 24 LOZ/1 BOX PO PRN (17:45)
[2017-05-15] MEDS: TRAVOPROST Z 0.004% OPH SOLN 2.5 ML BTL OP SCH (19:29)
--- NOTE | 2017-05-15 21:53 | NUR ---
ID: Pt admitted with acute respiratory failure. Pt is A/Ox4. YAVAPAI-APACHE. Patient can become very agitated and angry at times. Breath sounds are diminished on 5L 02 NC. Denies pain. VSS. Tolerating a full liquid diet. Mejia patent and draining clear yellow urine. Saline lock intact to left and right forearms. OOB with two person assist and walker. Pt from home with caregivers. Case management following. Hourly rounding maintained. Call mehta and bedside table are within reach. Bed alarm used for safety. Will continue to monitor.
[2017-05-15 22:35] VITALS: BP 151/79; PULSE 75; TEMP 36.4; O2SAT 96
[2017-05-16] MEDS: LEVOTHYROXINE 75 MCG TAB PO SCH (06:28)
--- NOTE | 2017-05-16 06:38 | NUR ---
NURSE NOTE: A/O X 3 - SLEEPING - DID NOT WANT TO BE DISTURBED - GAVE PT MED - ASKED FOR FRESH WATER - GOT FOR PT - DECLINED -WANTED APPLE JUICE - GOT FOR PT - TOOK SYNTHROID - UNCOOPERATIVE - PT TE-MOAK - CLOSED DOOR BECAUSE TV WAS SO LOUD - ANOTHER PT COMPLAINED - PT BECAME AGITATED - ASKED HIM ANALYST TO THROW OUT WATER - PT SAID SHE THOUGHT WATER WAS POISON
[2017-05-16 07:36] VITALS: BP 168/93; PULSE 85; TEMP 36.3; O2SAT 94
[2017-05-16] MEDS: DOXYCYCLINE HYCLATE 100 MG CAP PO SCH ×2 (08:43→20:20)
[2017-05-16] MEDS: METOPROLOL TARTRATE 25 MG TAB PO SCH ×2 (08:45→19:48)
[2017-05-16] MEDS: APIXABAN 2.5 MG TAB PO SCH ×2 (08:45→19:47)
[2017-05-16] MEDS: FUROSEMIDE 40 MG TAB PO SCH (08:45)
--- NOTE | 2017-05-16 12:17 | NUR ---
Pt seen for followup, refer to linked note for full assessment and recommendations. Addendum: 05/16/17 at [address] Amended: Links added.
--- NOTE | 2017-05-16 12:55 | PULMONARY PROGRESS NOTE ---
DATE: 05/16/2017 PROBLEM LIST: Includes: 1. Acute on chronic hypoxemic and hypercapnic respiratory failure with pulmonary edema. 2. Moderately severe hypertension. 3. Diastolic congestive heart failure. 4. Severe chronic obstructive pulmonary disease, chronic O2 and steroid therapy. 5. Cor pulmonale. 6. Spiculated right upper lobe 1.2 cm nodule. 7. Chronic atrial fibrillation. 8. Aortic stenosis, status post transcatheter aortic valve replacement. 9. ST elevation myocardial infarction. SUBJECTIVE: The patient reports that she is feeling a little bit stronger today and she states that her sore throat is improving. She states that her breathing is about at her baseline. She has no complaints of increased shortness of breath. No complaints of increased chest heaviness or tightness. She is not having any significant coughing. She denies any pleuritic chest pain. She does report that her diet is advancing to regular diet, she has been on a liquid diet the past 6 days, according to the patient. She does verbalize that her condition is serious and there is not really much that could be done about it. OBJECTIVE: GENERAL: The patient is an 87-year-old female who is very hard of hearing. She is lying in bed. She is interactive and cooperative. VITAL SIGNS: Temp 36.3, pulse 85, respirations 20, blood pressure is 168/93, pulse ox 94% on 5 liters. HEENT: Normocephalic, atraumatic. Pupils equal, round, reactive. [place], somewhat dry gingival and buccal mucosa. NECK: Thin, supple. No mass. No adenopathy. No bruit. CHEST: The patient has decreased breath sounds bilaterally. She has coarse wheezing throughout diffusely and does not appear in any acute respiratory distress. CARDIOVASCULAR: Regular rate and rhythm. No murmurs, gallops or rubs noted. ABDOMEN: Bowel sounds are present. Abdomen soft. No guarding, rigidity or organomegaly. EXTREMITIES: No edema, no tenderness. NEUROLOGIC: Cranial nerves grossly intact. No focal deficits noted. DATA: This patient has had no further testing done, as per her request as patient has apparently been changed to a DNR and is not interested in having any further testing done. No new imaging since May 13. IMPRESSION: 1. Acute on chronic hypoxemic and hypercapnic respiratory failure with pulmonary edema status post intubation. The patient has been extubated for approximately 3-4 days now and is doing fairly stable. At this point, she wants no further lab or testing done. As she wishes, patient is a do not resuscitate and there has been a consultation put in for palliative care as well. At this point, I believe that she is probably about as stable as we are going to get her from a pulmonary standpoint. 2. Severe chronic obstructive pulmonary disease which is O2 and steroid dependent. The patient currently is on 20 mg of prednisone daily, she states that she normally is on 10, and I think that we can attempt to slowly taper it down over the next few days to see how well she tolerates this. 3. Spiculated right upper lobe nodule, which has been stable. 4. Cor pulmonale. 5. Aortic stenosis, status post aortic valve replacement. 6. ST elevation myocardial infarction. RECOMMENDATIONS: At this point, would recommend to continue bronchodilator. Continue her current oxygen as directed with recommendation for maintaining saturations between 88% and 92%. Continue her current dose of prednisone as it is today with potentially slowly tapering and starting tomorrow, if she remains stable. Otherwise, continue rest of medications as they are. MTDD
--- NOTE | 2017-05-16 15:11 | NUR ---
A: Ambulated pt. with walker in hallway per patient request. Pt. ambulated approximately [address] from room. Pt. took three breaks from SOB during walk. PT/OT consults obtained form physician.
--- NOTE | 2017-05-16 15:47 | Progress Note ---
Subjective Date of Service: May 16, 2017. Subjective this pt is about her ususal state she has no new concerns, is bothered by NEGRON and fatigue. Looks forward to returning home Problem List Medical Problems: (1) Acute bronchitis Status: Acute (2) Allergic reaction Status: Acute (3) CHF (congestive heart failure) Status: Acute (4) CHF exacerbation Status: Acute (5) Elevated troponin Status: Acute (6) Hypokalemia Status: Acute (7) Hyponatremia Status: Acute (8) Hypoxia Status: Acute (9) Hypoxia Status: Acute (10) Hypoxia Status: Chronic (11) Hypoxia Status: Acute (12) PNA (pneumonia) Status: Acute (13) Pneumonia Status: Acute (14) Pulmonary edema Status: Acute (15) Rapid atrial fibrillation Status: Acute (16) Respiratory failure Status: Acute (17) Respiratory failure Status: Acute (18) Sepsis Status: Acute (19) Weakness Status: Acute Review of Systems Constitutional: + weakness, + fatigue, No fever, No chills Respiratory: + shortness of breath, + dyspnea on exertion, No cough Cardiac: No chest pain, No edema Abdomen: + diarrhea, No pain, No nausea Psychiatric: + anxiety, No depression symptoms Objective Vital Signs Date Time Temp Pulse Resp B/P (MAP) Pulse Ox O2 Delivery O2 Flow Rate FiO2 05/16/17 08:30 Nasal Cannula 5.0 05/16/17 07:36 36.3 85 20 168/93 (118) 94 Nasal Cannula 5.0 05/16/17 04:00 Room Air 05/15/17 22:35 36.4 75 21 151/79 (103) 96 Nasal Cannula 5.0 05/15/17 16:55 78 05/15/17 16:30 Nasal Cannula 5.0 05/15/17 15:56 36.2 81 20 146/77 (100) 98 Nasal Cannula 5.0 Physical Exam General Appearance: + mild distress, + thin Eyes: PERRL, EOMI Respiratory/Chest: chest non-tender, + decreased breath sounds, + accessory muscle use Cardiovascular: regular rate, rhythm, + systolic murmur Abdomen: normal bowel sounds, soft Extremities: no pedal edema, no calf tenderness Neurologic/Psychiatric: alert, oriented x 3 Assessment and Plan 87 yo female known for multiple admissions for her severe COPD is admitted with respiratory failure requiring mechanical ventilation, now extubated and returning to her baseline Extubated patient on Sunday 05/13 Dr Sutton discusses illness with patient and patient understands she is end stage, however as she improves seems less interested in comfort care Dr Mccoy has disucssed with family The doxycycline for HCAP last dose 05/16. Stop any further testing including accuchecks. Will consult palliative care, however pt now requests PT/OT Ischemic changes noted on EKG we will treat clinically if symptoms return will discuss decision to treat at that point ACUTE HYPOXIC RESPIRATORY FAILURE-transitioned to chronic respiratory failure Prednisone, pt feels prednisone is causing somatic issues, agrees to try decadron HCAP -doxycycline Previous admissions patient was DNR however no POLST form is noted. H/O of Chronic Systolic CHF, afib, continue digoxin and b ginny , discussed only taking po fluids if she is thirsty, appears euvolemic at this time treat clinically with Furosemide and monitor her Is and Os DVT PROPHYLAXIS Eliquis used for dvt and thromboembolism prophylaxis TEDs / SCDs ordered
[2017-05-16] MEDS ORDERED: DEXAMETHASONE 1 MG TAB PO ONE (16:00)
--- NOTE | 2017-05-16 16:14 | Palliative Care Consultation ---
Consultation Date of Consultation: May 16, 2017. Requesting Physician: Dr. Thompson Attending Physician: Dr. 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 Patient is well-known to palliative service, so I am seeing her again in consult today for discussion of goals of care. Patient is known to be rather difficult to talk to, is very distrusting on all medical providers, blames her illness on "bad doctors", and is notoriously indecisive when it comes to advance care planning. I have personally met with patient now on three individual hospital admissions. In the past, I have sat with patient for extended periods of time and discussed code/resuscitation status, her wishes as far as how aggressively she wants to be treated, and have discussed the possibility of hospice care with her. Today, I met with her again to discuss such matters, and she could not recall ever meeting me. She immediately became defensive and said, "Why has no one ever talked to me about this?" when I spoke to her about code status and about filling out a POLST form to reflect her wishes. I explained to her that I have personally discussed this with her several times, she did not remember. Patient asked me to call her son to discuss possibly filling out a POLST form when he is in town next. For now, he is back in [place]. Again, I discussed hospice with her, she would not give me an answer of whether or not she would allow such services in the home. Past Medical/Surgical History Medical History: Anxiety Asthma Atrial fibrillation with RVR Back pain Hypertension Bronchitis Cataract Aortic stenosis s/p TAVR September 2016 CHF COPD Pulmonary htn Fall Humeral head fracture Hypoxia Kidney disease Melanoma Neck pain Pneumonia Social History Smoking Status: Former Smoker History of Alcohol Use: No Drug Use: none Marital Status: Housing Status: lives alone Occupation Status: retired Review of Systems Constitutional: + weakness ENT: No trouble swallowing Respiratory: + cough, + dyspnea on exertion, No sputum Cardiac: No chest pain, No edema Abdomen: No pain, No nausea, No vomiting Female : No problem reported Psychiatric: + anxiety, No depression symptoms Allergies Coded Allergies: Clonidine (Verified Allergy, Mild, SHORTNESS OF BREATH, 05/10/17) Iodinated Diagnostic Agents (Verified Allergy, Unknown, "IT JUST AFFECTS ME AND I CAN'T EXPLAIN IT", 05/10/17) Latex1 -Allergic Contact Dermititis (Verified Allergy, Unknown, RASH, ) Penicillins (Verified Allergy, Unknown, UNKNOWN, 05/10/17) Sulfa Antibiotics (Verified Allergy, Unknown, "SWELLING IN MOUTH AND DRIED OUT", 05/10/17) Medications Current Inpatient Medications Medications (Trade) Dose Ordered Sig/Yared Route Start Time Stop Time Status Last Admin Dose Admin Ondansetron HCl (Zofran Inj) 4 mg Q6H PRN IV 05/10/17 07:45 06/09/17 07:44 05/13/17 19:54 4 MG Apixaban (Eliquis Tab) 2.5 mg BID PO 05/11/17 21:00 06/10/17 20:59 05/16/17 08:45 2.5 MG Morphine Sulfate (MoRPHine SULFATE INJ) 1 mg Q15M PRN IV 05/12/17 11:00 05/26/17 10:59 05/13/17 10:12 1 MG Travoprost (Travatan Z) 1 drops HS OP 05/12/17 21:00 06/11/17 20:59 05/15/17 19:29 1 DROPS Digoxin (Lanoxin Tab) 0.125 mg DAILY@16 PO 05/13/17 16:00 06/12/17 15:59 05/15/17 16:55 0.125 MG Doxycycline Hyclate (Vibramycin Cap) 100 mg BID PO 05/13/17 20:00 05/16/17 23:59 05/16/17 08:43 100 MG Furosemide (Lasix Tab) 40 mg QAM PO 05/14/17 08:00 06/13/17 08:59 05/16/17 08:45 40 MG Levothyroxine Sodium (Synthroid Tab) 75 mcg DAILYBB PO 05/14/17 06:00 06/13/17 05:59 05/16/17 06:28 75 MCG Metoprolol Tartrate (Lopressor Tab) 12.5 mg BID PO 05/13/17 20:00 06/12/17 20:59 12/27/17 08:45 12.5 MG Prednisone (PredniSONE TAB) 20 mg DAILY PO 05/16/17 08:00 06/13/17 08:59 05/16/17 08:45 20 MG Menthol (Nice Yaz) 1 yaz Q1H PRN PO 05/15/17 17:45 06/14/17 17:44 Physical Exam Date Time Temp Pulse Resp B/P (MAP) Pulse Ox O2 Delivery O2 Flow Rate FiO2 05/16/17 08:30 Nasal Cannula 5.0 05/16/17 07:36 36.3 85 20 168/93 (118) 94 Nasal Cannula 5.0 05/16/17 04:00 Room Air 05/15/17 22:35 36.4 75 21 151/79 (103) 96 Nasal Cannula 5.0 05/15/17 16:55 78 05/15/17 16:30 Nasal Cannula 5.0 05/15/17 15:56 36.2 81 20 146/77 (100) 98 Nasal Cannula 5.0 General Appearance: no apparent distress, + pertinent finding (chronically ill appearing) ENT: hearing grossly normal Neck: supple, no JVD Respiratory: no respiratory distress, no accessory muscle use, + decreased breath sounds, + pertinent finding (nasal cannula) Cardiovascular: regular rate, rhythm, no edema, + normal peripheral pulses Abdomen: normal bowel sounds, non tender, soft Musculoskeletal: normal Neurologic/Psychiatric: alert, oriented x 3 (but is very forgetful) Assessment & Plan Palliative Performance Scale: 50 % Problem list: NEGRON/SOB Acute on chronic respiratory failure End-stage COPD Valvular heart disease s/p TAVR September 2016 HCAP- doxycycline Ischemic changes on EKG Hx chronic diastolic CHF and afib Goals of care (z51.5) Palliative care recs: -Patient remains a level 5/DNR/DNI at this time. -Again, I discussed completing a POLST form with her to reflect her wishes for her protection so this didn't happen again. Again, she was resistant. Patient states she is uncomfortable signing anything without her son here. Son returned to his home in [place], but she states he will be back some time soon. She asked that I call him and discuss POLST. -We talked about trying hospice in the home. She tried a hospice agency for a very brief period of time a couple months ago. She says they "screwed her life up," and never allowed them back in. I offered to find her a new agency, as I did during her last admission, but she would not give me an answer and just wanted to talk about how "worthless they are." -Lengthy conversation had with the patient about what she wants out of life at this point. I explained that without a goal for comfort and allowing nature to take its course/allowing natural and peaceful , that she would continue to return to the hospital with every exacerbation. On the flip side, if she DID make the decision to pursue comfort/hospice care, the goal when she had exacerbations would be to keep her at home, make her comfortable with pain and anxiety medications, and allow natural . Patient stated that she knows she wants to peacefully, but would not tell me whether or not she wanted hospice care or if that was her goal. -I will call patient's son, Jerel, tomorrow to discuss these matters with him and see if he can offer his mother any support/assistance in making these decisions. Thank you for this consult. I will follow.
[2017-05-16] MEDS: DIGOXIN 0.125 MG TAB PO SCH (16:52)
--- NOTE | 2017-05-16 19:46 | NUR ---
A: Patient requesting medications to be given at this time so she can go to bed.
[2017-05-16] MEDS: TRAVOPROST Z 0.004% OPH SOLN 2.5 ML BTL OP SCH (19:47)
--- NOTE | 2017-05-16 21:07 | NUR ---
ID: Pt admitted with acute respiratory failure. Pt is A/Ox4. [place]. Patient can become very agitated and angry at times. Breath sounds are diminished on 5L 02 NC. Denies pain. VSS. Tolerating a low sodium diet well. Mejia patent and draining clear yellow urine. Saline lock intact to left and right forearms. OOB with two person assist and walker. Pt from home with caregivers. Case management and palliative care following. Hourly rounding maintained. Call mehta and bedside table are within reach. Bed alarm used for safety. Will continue to monitor.
[2017-05-17] MEDS: LEVOTHYROXINE 75 MCG TAB PO SCH (05:23)
[2017-05-17 08:00] VITALS: O2SAT 94
[2017-05-17] MEDS ORDERED: SUCCINYLCHOLINE CHLORIDE 20 MG/ML 10 ML VIAL IV ONE (08:22)
[2017-05-17] MEDS ORDERED: ETOMIDATE 2 MG/ML 20 ML VIAL IV ONE (08:22)
[2017-05-17] MEDS: METOPROLOL TARTRATE 25 MG TAB PO SCH ×2 (08:39→20:27)
[2017-05-17] MEDS: FUROSEMIDE 40 MG TAB PO SCH (08:39)
[2017-05-17] MEDS: DEXAMETHASONE 1 MG TAB PO SCH (08:39)
[2017-05-17] MEDS: APIXABAN 2.5 MG TAB PO SCH ×2 (08:39→20:27)
--- NOTE | 2017-05-17 13:18 | Palliative Care Progress Note ---
Palliative Care Progress Note Date of Service May 17, 2017. Subjective Called patient's son, Jerel Ferrer, today to discuss his mother's situation/ condition. Jerel stated that he wants nothing more than for his mother to just be comfortable and have as good of a quality of life as possible. He will be returning in 24-48 hours from [place] and would be willing to help his mother complete POLST form and to talk to her about hospice. He stated he would be in agreement with her entering hospice care and is in favor of patient remaining a DNR/DNI. He stated that his mother has always made it clear to him that she would not want any aggressive/invasive measures at this point, specifically would not want to be on the "breathing machine." I provided my phone number to Jerel, he will call me when he's in town. If patient is out of the hospital by that time, I can give him Dr. Ochoa's number for outpatient clinic. I attempted to see the patient today, she was having a long conversation with the nursing supervisor labor gang on fourth floor. I will check back later.
--- NOTE | 2017-05-17 15:02 | NUR ---
As per attending at rounds, patient has improved and can be discharged to home tomorrow. She needs her aide to provide transportation. Talked with Aysha at [facility] ([phone]). She continues to work with the patient. Informed her that the patient is going home tomorrow and will need transport to home. As per Aysha, the aide is available to transport. Transport is scheduled for 1400 on Sunday. Referral to [facility] for home health services. Patient had them previously. Will plan discharge to home tomorrow.
--- NOTE | 2017-05-17 15:30 | Progress Note ---
Subjective Date of Service: May 17, 2017. Subjective pt is about her usual state with chronic shortness of breath and some mild diarrhea Problem List Medical Problems: (1) Acute bronchitis Status: Acute (2) Allergic reaction Status: Acute (3) CHF (congestive heart failure) Status: Acute (4) CHF exacerbation Status: Acute (5) Elevated troponin Status: Acute (6) Hypokalemia Status: Acute (7) Hyponatremia Status: Acute (8) Hypoxia Status: Acute (9) Hypoxia Status: Acute (10) Hypoxia Status: Chronic (11) Hypoxia Status: Acute (12) PNA (pneumonia) Status: Acute (13) Pneumonia Status: Acute (14) Pulmonary edema Status: Acute (15) Rapid atrial fibrillation Status: Acute (16) Respiratory failure Status: Acute (17) Respiratory failure Status: Acute (18) Sepsis Status: Acute (19) Weakness Status: Acute Review of Systems Constitutional: + weakness, + fatigue, No fever, No chills Respiratory: + shortness of breath, + dyspnea on exertion, No cough, No sputum Cardiac: No chest pain, No orthopnea, No edema Abdomen: + diarrhea, No pain, No nausea, No vomiting Female : No dysuria, No urinary frequency Objective Vital Signs Date Time Temp Pulse Resp B/P (MAP) Pulse Ox O2 Delivery O2 Flow Rate FiO2 05/17/17 08:00 94 Nasal Cannula 4.0 05/17/17 05:34 Nasal Cannula 4.0 05/16/17 16:52 82 05/16/17 16:30 Nasal Cannula 5.0 Physical Exam General Appearance: + mild distress, + thin Eyes: normal inspection, sclerae normal Respiratory/Chest: chest non-tender, + decreased breath sounds, + accessory muscle use Cardiovascular: regular rate, rhythm, + systolic murmur Abdomen: normal bowel sounds, non tender, soft Extremities: no pedal edema, no calf tenderness Neurologic/Psychiatric: alert, oriented x 3 Assessment and Plan 87 yo female known for multiple admissions for her severe COPD is admitted with respiratory failure requiring mechanical ventilation, now returning to her baseline, discussion of code state and polst underway Extubated patient on Sunday 05/13 Dr Sutton discusses illness with patient and patient understands she is end stage, however as she improves seems less interested in comfort care Dr Mccoy has disucssed with family The doxycycline for HCAP last dose 05/16. Pt has returned to her ususal state, she is frequently non trusting of medical care and accusatory, I personally spent 45 minutes at the bedside today Ischemic changes noted on EKG, no chest pain and did have only mild bump in troponin officailly making this a non stemi ACUTE HYPOXIC RESPIRATORY FAILURE-transitioned to chronic respiratory failure, is stable will have home on nebs as does not 'like" inhalers has been stable on decadron Previous admissions patient was DNR however no POLST form is noted. She reconfirms she is DNR today with me 05/17 H/O of Chronic Diastolic/ Systolic CHF, afib, digoxin and b ginny( did stop diltiazem this stay) DVT PROPHYLAXIS Eliquis used for dvt and thromboembolism prophylaxis TEDs / SCDs ordered
[2017-05-17 16:00] VITALS: BP 135/78; PULSE 81; TEMP 36.5; O2SAT 96
--- NOTE | 2017-05-17 16:04 | PULMONARY PROGRESS NOTE ---
DATE: 05/17/2017 DATE: 05/17/2017 TIME: 3:30 p.m. SUBJECTIVE: The patient remains relatively weak. Physical therapy was able to ambulate her only from her bed to the door. At the time of her other hospital stays prior to discharge she would be able to walk the length of the hallway. This would not be surprising considering she had been on a respirator and so forth. She is not having chest pains. Her breathing has been comfortable at rest. She is not coughing much. OBJECTIVE: GENERAL: The patient was comfortable at rest. She did look weak. Temperature is 36.3. EARS, NOSE, THROAT: Unremarkable. VITAL SIGNS: Heart rate is 82 per minute. The rhythm is irregular. Blood pressure this morning 168/93. LUNGS: Auscultation of the lung luis revealed very diminished breath sounds. No wheezes were heard. No rales were heard. Oxygen saturation is 94% on 4 liters. ABDOMEN: Mejia catheter is in place. EXTREMITIES: Reveal trace edema. There was no cyanosis or clubbing. I reviewed the patient's chest x-rays from this hospital stay. Initially, she had interstitial edema and left pleural effusion. These findings were much improved on the followup on 05/13/2017. She has not had any labs for the past several days. IMPRESSIONS: 1. Respiratory failure -- acute on chronic with hypercarbia and hypoxia. 2. Chronic obstructive pulmonary disease. 3. Congestive heart failure. 4. Status post transcatheter aortic valve replacement. 5. Right upper lobe nodule -- suspicious for malignancy. COMMENTS: The patient is stable in the strictest sense of the word. However, she is weak and debilitated. She continues to insist upon refusing to go to [facility]. She continues to resist and refuse to go to any [facility] facility. At the same time she acknowledges she cannot take care of herself at home. I have suggested to her numerous times including today that she consider assisted living, which I do believe she will. I suspect that if she goes home tomorrow she will be high risk for coming back soon. The patient had complained to the hospitalist team that the prednisone was bad for her and was causing her teeth to rot. They had switched her to dexamethasone. I really think she would be better served by being on prednisone. I told her this. I would suggest continuing her 10 mg daily on the prednisone upon discharge. It will also create less confusion for her. She has had a lot of trouble keeping medicine straight. She had previously been on nebulizer treatments with levalbuterol. She does not appear to be on any at this point in time. I am not sure why they were discontinued. Unless there is an obvious reason, I would continue the neb treatments for her 3 times per day in an attempt to keep her out of the hospital. Likewise, she had been on Breo Ellipta and I would continue that. Review of her meds shows that she previously had been on diltiazem. I am not sure if that was stopped for a particular reason or not as well. Her status is very marginal.
[2017-05-17] MEDS: DIGOXIN 0.125 MG TAB PO SCH (16:09)
[2017-05-17] MEDS: LEVALBUTEROL 0.63MG/3 ML NEB INH SCH (19:43)
[2017-05-17 19:46] VITALS: PULSE 93; O2SAT 97
[2017-05-17 20:26] VITALS: BP 114/71; PULSE 91
[2017-05-17] MEDS: TRAVOPROST Z 0.004% OPH SOLN 2.5 ML BTL OP SCH (20:27)
--- NOTE | 2017-05-17 21:13 | NUR ---
ID: Patient admitted with acute respiratory failure. Alert and oriented x4- very hard of hearing- periods of forgetfulness. Two person assist with transfers. IV SL. Spo2 wnl on 4lpm nc. Tolerating low sodium diet. Mejia patent draining concentrated yellow urine. Case management involved with discharge planning.
[2017-05-18] VITALS (12 sets, daily range): BP systolic 95–157; BP diastolic 51–82; PULSE 76–98; TEMP 36.2–36.7; O2SAT 91–98
[2017-05-18] MEDS: LEVALBUTEROL 0.63MG/3 ML NEB INH SCH ×4 (02:22→19:23)
[2017-05-18] MEDS: LEVOTHYROXINE 75 MCG TAB PO SCH (06:04)
[2017-05-18] MEDS: METOPROLOL TARTRATE 25 MG TAB PO SCH ×2 (08:51→19:57)
[2017-05-18] MEDS: FUROSEMIDE 40 MG TAB PO SCH (08:51)
[2017-05-18] MEDS: APIXABAN 2.5 MG TAB PO SCH ×2 (08:51→19:57)
[2017-05-18] MEDS: DEXAMETHASONE 1 MG TAB PO SCH (08:52)
--- NOTE | 2017-05-18 11:51 | PULMONARY PROGRESS NOTE ---
DATE: 05/18/2017 DATE: 05/18/2017 TIME: 11:30 a.m. SUBJECTIVE: The patient admits she feels more short of breath today. However, she is quite worked up, I believe about going home. She is being very critical of many of the hospital workers. She is dissatisfied with the service. I believe this is all just part of her usual emotional frustration that the patient has which ends up getting her more short of breath. She is insistent upon going home. She states she is not staying here any longer. She will not consider any alternatives. OBJECTIVE: GENERAL: The patient looked mildly short of breath. Temperature was 36.3. EARS, NOSE, THROAT: Exam is unchanged. HEART: Heart rate was 81. VITAL SIGNS: Blood pressure 157/82. The rhythm is irregular. Respiratory rate is 22 per minute. LUNGS: Lung luis revealed mild rales posteriorly. No active wheezing was heard. Saturation was 98% on 4 liters. EXTREMITIES: Showed trace edema. There was no cyanosis or clubbing. IMPRESSIONS: 1. Respiratory failure -- acute on chronic with hypercarbia and hypoxia. 2. Chronic obstructive pulmonary disease. 3. Congestive heart failure. 4. Status post transcatheter aortic valve replacement. 5. Right upper lobe nodule -- suspicious for malignancy. The patient remains relatively weak and debilitated. She is insistent upon going home. I believe there is a high risk for return. I would suggest putting her back on prednisone 10 mg daily as well as her neb treatments and her other medicines she was on before admission. She will need to see me in 1-2 weeks. The patient is a DNR. Again, I do have great concerns about her being able to care for herself.
[2017-05-18] MEDS ORDERED: PRFINS NEB (11:56)
[2017-05-18] MEDS ORDERED: BUDE0.253 NEB (11:56)
[2017-05-18] MEDS ORDERED: XPNINS INH (11:56)
[2017-05-18] MEDS ORDERED: POTA-639 PO (11:56)
[2017-05-18] MEDS ORDERED: LPR25 PO (11:56)
[2017-05-18] MEDS ORDERED: DXM1 PO (11:56)
--- NOTE | 2017-05-18 12:03 | Discharge Instructions ---
Discharge Instructions Date of Service May 18, 2017. Admission Reason for Admission: Acute Respiratory Failure Discharge Discharge Diagnosis / Problem: copd exacerbation Discharge Goals Goal(s): Diagnostic testing, Therapeutic intervention Activity Recommendations Activity Limitations: as noted below Lifting Limitations: gradually increase as tolerated Please take your nebulizers as prescribed, you have 2 new ones for you, pulmicort and formoterol, which are to take place of BREO, these are meant to be more preventative to reduce the chance of your copd worsening Your levabuterol, is a rescue inhaler, continue to use these 4 times a day and as needed By your request we are trying to use Dexamethasone in place of prednisone, if you do not feel your dexmethasone is helping your breathing please return to prednisone 10 mg a day as recommended by Dr Rucker, and stop the dexamethasone, do not take both at the same time. We have changed some of your heart medication during your stay, stopping your diltiazem and increasing your metoprolol Please consider reporting to the ER for evaluation earlier in your breathing distress flare than you have been to attempt to reduce the severity and duration of your illness . Current Hospital Diet Patient's current hospital diet: Low Sodium Diet (2gm Na) Discharge Diet Recommended Diet: Regular Diet Pending Studies Studies pending at discharge: no Laboratory Results Hemoglobin A1c Test 05/11/17 05:12 Range/Units Estimated Average Glucose 123 mg/dl Hemoglobin A1c 5.9 H 4.5-5.6 % Medical Emergencies . Who to Call and When: Medical Emergencies: If at any time you feel your situation is an emergency, please call 911 immediately. . Non-Emergent Contact Non-Emergency issues call your: Spot Washer Call Non-Emergent contact if: temperature is above 101, your pain is unusual for you . . "Provider Documentation" section prepared by Ino Henderson. . VTE Core Measure Inpt VTE Proph given/why not?: Unfractionated heparin SQ
--- NOTE | 2017-05-18 12:51 | NUR ---
Talked with attending today. Patient is cleared for discharge to home with home health today. Talked with patient today. She does not have her Dominique to the apartment. The police left her keys in her apartment when she was transported to the hospital. She said that her friend, Leonora, has a dominique. Left a message for Leonora ([phone]). Talked with the apartment building rental superintendent, Lisa, today. There are people in the patient's apartment getting her clothes and her keys. Talked with patient and Leonora in patient's room. Leonora brought clothes and the apartment keys to the patient. Talked with Aysha today. Her regular caregiver is not transporting the patient. The person transporting the patient is Dea. The regular caregiver will be there tomorrow. D/C instructions faxed to [facility]. Plan discharge today.
--- NOTE | 2017-05-18 14:54 | NUR ---
Case Management Met with patient in room at the request of nursing. Patients caregiver in room to transport home ena did not have portable tanks to return home because hers were empty. Per caregiver home tanks are empty as well. The normal caregiver lakhwinder has some in the car but tk feels they are empty or almost empty. Asked caregiver to get a hold of lakhwinder and verify portables empt. Let tk know that I would be calling to coordinate delivery for oxygen. Patient reports the other is issue is she has no caregivers tonight. Spoke with caregiver in room she needs to be leaving soon she was only supposed to seed cone picker and drop off. She would have no caregivers until tomorrow at 0900. Placed call to [facility] patient. Addendum: 05/18/17 at 1521 by Luz Duran [email or web address] spoke with neighbor lizzy she is concerned with the home situation right know the heat was turned off the neighbor just turned it back on. The house is a mess from when ems came to the apartment she currently has no food in the home. She reports patients son is going to be coming tomorrow chuck provide support and stay with patient Addendum: 05/18/17 at 1524 by Luz Mast OdinOtvet spoke with roshan at [facility] she will coordinate with joe to drop off supplies tomorrow. Updated Dr Gillette about the above. Also updated joe who informed martha has a portable for transport but mukund is not able to stay with patient tonight Addendum: 05/18/17 at 1611 by Luz Duran SERV updated patient that she was going to be leaving tomorrow. She was angry with me calling me a lier and that she was going to jennifer me for not being a better coordinator of her services
--- NOTE | 2017-05-18 16:07 | Progress Note ---
Subjective Date of Service: May 18, 2017. Subjective pt is about in her usual state, she had her discharge delayed due to issues in procurement in portable oxygen to facilitate transport to home. she has no other complaints Problem List Medical Problems: (1) Acute bronchitis Status: Acute (2) Allergic reaction Status: Acute (3) CHF (congestive heart failure) Status: Acute (4) CHF exacerbation Status: Acute (5) Elevated troponin Status: Acute (6) Hypokalemia Status: Acute (7) Hyponatremia Status: Acute (8) Hypoxia Status: Acute (9) Hypoxia Status: Acute (10) Hypoxia Status: Chronic (11) Hypoxia Status: Acute (12) PNA (pneumonia) Status: Acute (13) Pneumonia Status: Acute (14) Pulmonary edema Status: Acute (15) Rapid atrial fibrillation Status: Acute (16) Respiratory failure Status: Acute (17) Respiratory failure Status: Acute (18) Sepsis Status: Acute (19) Weakness Status: Acute Review of Systems Constitutional: + weakness, + fatigue, No fever, No chills Respiratory: + cough, + shortness of breath, + dyspnea on exertion Cardiac: No chest pain, No PND Abdomen: No pain, No nausea, No vomiting, No diarrhea Neurologic: No memory loss, No paralysis Psychiatric: + depression symptoms, + anxiety, No anhedonism Objective Vital Signs Date Time Temp Pulse Resp B/P (MAP) Pulse Ox O2 Delivery O2 Flow Rate FiO2 05/18/17 15:53 91 18 95/51 (66) 05/18/17 14:32 98 16 91 Nasal Cannula 4.0 05/18/17 10:44 36.3 81 22 98 Nasal Cannula 05/18/17 08:00 98 Nasal Cannula 4.0 05/18/17 07:42 36.3 81 22 157/82 (107) 98 Nasal Cannula 3.0 05/18/17 07:21 78 16 95 Nasal Cannula 4.0 05/18/17 02:24 76 16 95 Nasal Cannula 4.0 05/18/17 00:00 36.7 80 20 119/68 (85) 97 4.0 05/18/17 00:00 97 Nasal Cannula 4.0 30 05/17/17 20:26 91 114/71 (85) 05/17/17 19:46 93 20 97 Nasal Cannula 4.0 05/17/17 16:09 82 Physical Exam General Appearance: WD/WN, + mild distress Eyes: normal inspection, sclerae normal Respiratory/Chest: chest non-tender, + decreased breath sounds, + accessory muscle use Cardiovascular: regular rate, rhythm, + systolic murmur Abdomen: normal bowel sounds, non tender, soft Extremities: no pedal edema, no calf tenderness Neurologic/Psychiatric: alert, oriented x 3 Assessment and Plan 87 yo female known for multiple admissions for her severe COPD is admitted with respiratory failure requiring mechanical ventilation, now returning to her baseline, discussion of code state agreed to be DNR Extubated patient on Sunday 05/13 Dr Sutton discusses illness with patient and patient understands she is end stage, however as she improves seems less interested in comfort care Dr Mccoy has disucssed with family The doxycycline for HCAP last dose 05/16. Pt has returned to her usual state, she is frequently non trusting of medical care and accusatory Ischemic changes noted on EKG, no chest pain and did have only mild bump in troponin officially making this a non stemi ACUTE HYPOXIC RESPIRATORY FAILURE-transitioned to chronic respiratory failure, is stable will have home on nebs as does not 'like" inhalers has been stable on decadron wishes to continue this at home Previous admissions patient was DNR however no POLST form is completed and she wishes to speak to son prior to filling this out. She reconfirms she is DNR with me on 05/17 H/O of Chronic Diastolic/ Systolic CHF, afib, has been stable on lasix, digoxin and b ginny( did stop diltiazem this stay) DVT PROPHYLAXIS Eliquis used for dvt and thromboembolism prophylaxis TEDs / SCDs ordered
[2017-05-18] MEDS: DIGOXIN 0.125 MG TAB PO SCH (16:16)
--- NOTE | 2017-05-18 19:24 | NUR ---
ID: Patient admitted with acute respiratory failure. Alert and oriented x4- hard of hearing. IV sites removed. Spo2 wnl on 4lpm nc. Continue with nebulizer treatments. One to two assist to [facility]. Anticipated discharge to home tomorrow.
[2017-05-18] MEDS: TRAVOPROST Z 0.004% OPH SOLN 2.5 ML BTL OP SCH (19:57)
[2017-05-19] MEDS: LEVALBUTEROL 0.63MG/3 ML NEB INH SCH ×3 (01:42→14:06)
[2017-05-19] MEDS: LEVOTHYROXINE 75 MCG TAB PO SCH (05:54)
[2017-05-19 07:38] VITALS: PULSE 81; O2SAT 94
[2017-05-19 08:21] VITALS: BP 155/83; PULSE 75; TEMP 36.3; O2SAT 94
[2017-05-19] MEDS: DEXAMETHASONE 1 MG TAB PO SCH (08:56)
[2017-05-19] MEDS: APIXABAN 2.5 MG TAB PO SCH (08:57)
[2017-05-19] MEDS: FUROSEMIDE 40 MG TAB PO SCH (08:57)
[2017-05-19] MEDS: METOPROLOL TARTRATE 25 MG TAB PO SCH (08:57)
--- NOTE | 2017-05-19 09:37 | NUR ---
Case Management Note- Received call that patient caregiver, Lupe, will be leaving [place] around 1200 to provide transportation for patient home. Fashion Coordinator and RN aware.
[2017-05-19] MEDS ORDERED: NYSS5 PO (10:30)
[2017-05-19] MEDS ORDERED: NYSTATIN SUSP 500,000 U/5 ML UDC PO SCH (10:30)
[2017-05-19 11:02] VITALS: BP 155/83; PULSE 75; TEMP 36.3; O2SAT 94
--- NOTE | 2017-05-19 12:00 | NUR ---
A Note; Reviewed discharge instructions with patient at bedside; Pt verbalizes understanding of medication changes and follow up care
--- NOTE | 2017-05-19 12:46 | Discharge Summary ---
Discharge Summary Date of Service May 19, 2017. Discharge Summary Admission Date: May 10, 2017 at 07:37 Discharge Date: May 19, 2017 Discharge Disposition: Home with services Principal Diagnosis: acute respiratory failure, copd exacerbation Problems/Secondary Diagnoses: (1) Hypoxia Status: Chronic Immunizations: Have You Had Influenza Vaccine: No History of Tetanus Vaccine?: utd History of Pneumococcal: Unknown History of Hepatitis B Vaccine: No Discharge Exam Review of Systems: Constitutional: No fever, No chills, No sweats, No weight loss, No weakness Respiratory: + shortness of breath, + dyspnea on exertion Cardiovascular: No chest pain, No edema Abdomen: No pain, No nausea Physical Exam: General Appearance: + moderate distress, + thin Eyes: PERRL, EOMI Neck: supple, no JVD Respiratory/Chest: chest non-tender, + decreased breath sounds, + crackles Cardiovascular: regular rate, rhythm, no murmur Hospital Course 87 yo female known for multiple admissions for her severe COPD is admitted with respiratory failure requiring mechanical ventilation, now returning to her baseline, discussion of code state agreed to be DNR Extubated patient on Sunday 05/13 Dr Sutton discusses illness with patient and patient understands she is end stage, however as she improves seems less interested in comfort care Dr Mccoy has disucssed with family The doxycycline for HCAP last dose 05/16. Pt has returned to her usual state, she is frequently non trusting of medical care and accusatory Ischemic changes noted on EKG, no chest pain and did have only mild bump in troponin officially making this a non stemi some throat pain prior to discharge will start nystatin given her chronic steroid use ACUTE HYPOXIC RESPIRATORY FAILURE-transitioned to chronic respiratory failure, is stable will have home on nebs as does not 'like" inhalers has been stable on decadron wishes to continue this at home By PTs request we are trying to use Dexamethasone in place of prednisone, if she does not feel her dexmethasone is helping I have asked her to return to prednisone 10 mg a day as recommended by Dr Rucker, and stop the dexamethasone. H/O of Chronic Diastolic/ Systolic CHF, afib, has been stable on lasix, digoxin and b ginny( did stop diltiazem this stay) Previous admissions patient was DNR however no POLST form is completed and she wishes to speak to son prior to filling this out. She reconfirms she is DNR with me on 05/17 Total Time Spent: Greater than 30 minutes This includes examination of the patient, discharge planning, medication reconciliation, and communication with other providers. Discharge Instructions Please refer to the electronic Patient Visit Report (Discharge Instructions) for additional information.
--- NOTE | 2017-05-19 13:45 | NUR ---
A Note; Caregiver arrived to assist with discharge; Caregiver did bring portable O2 however kept asking patient if she felt that she was ready for discharge ans asking why she was being sent home; PT stated she was unsure; MD called and requested to see patient and caregiver at bedside
--- NOTE | 2017-05-19 14:20 | NUR ---
A Note; PT discharged home with caregiver, belongings and O2 assisted to wheelchair with assist of 2
--- NOTE | 2017-05-19 16:04 | NUR ---
Case Management Note - Discharge instructions faxed to [facility]
== END 2017-05-19 14:20 | disposition home health service (06) | DRG 208 ==
LOC: EDBD 05:46 → C.EDB 05:49 → C.MSICU 07:37 → ENRESERV 07:41 → CMPBEDREQ 08:40 → ENRESERV 05-13 11:40 → C.4E 05-13 13:50
PROVIDERS: ADMIT Family Medicine; ATTEND Internal Medicine Sports Medicine
PROC: 0BH17EZ Insertion of Endotracheal Airway into Trachea, Via Natural or Artificial Opening (ICD-10-PCS; principal; 2017-05-10)
PROC: 5A1945Z Respiratory Ventilation, 24-96 Consecutive Hours (ICD-10-PCS; principal; 2017-05-10)
DX: J96.21 Acute and chronic respiratory failure with hypoxia (principal); I50.43 Acute on chronic combined systolic (congestive) and diastolic (congestive) heart failure; J18.9 Pneumonia, unspecified organism; I21.4 Non-ST elevation (NSTEMI) myocardial infarction; I16.1 Hypertensive emergency; J44.1 Chronic obstructive pulmonary disease with (acute) exacerbation; J96.22 Acute and chronic respiratory failure with hypercapnia; I11.0 Hypertensive heart disease with heart failure; Y95 Nosocomial condition; I48.2 Chronic atrial fibrillation; I27.29 Other secondary pulmonary hypertension; I27.81 Cor pulmonale (chronic); I44.7 Left bundle-branch block, unspecified; K59.00 Constipation, unspecified; F41.9 Anxiety disorder, unspecified; H40.9 Unspecified glaucoma; R91.1 Solitary pulmonary nodule; I07.1 Rheumatic tricuspid insufficiency; Z66 Do not resuscitate; Z99.81 Dependence on supplemental oxygen; Z86.79 Personal history of other diseases of the circulatory system; Z95.2 Presence of prosthetic heart valve; Z87.891 Personal history of nicotine dependence; Z79.01 Long term (current) use of anticoagulants; Z79.51 Long term (current) use of inhaled steroids; Z79.52 Long term (current) use of systemic steroids; Z79.82 Long term (current) use of aspirin; Z79.899 Other long term (current) drug therapy; Z88.0 Allergy status to penicillin; Z88.2 Allergy status to sulfonamides; Z91.040 Latex allergy status; Z91.041 Radiographic dye allergy status; Z82.49 Family history of ischemic heart disease and other diseases of the circulatory system

== ENCOUNTER → 2017-08-24 | Outpatient (CLI) | payer OTHER ==
[~2017-08-24] MED LIST changes: -ALPR0.25 PO; +BUDE0.253 NEB; -DILT360C23 PO; +DXM1 PO; -FLUT1INH PO; -GFNSR600 PO; -LEVO750T23 PO; +NYSS5 PO; +POTA-639 PO; -POTA10PO PO; -PRED10TA PO; +PRFINS NEB; -SUCR1TAB29 PO
[2017-08-24 16:48] LABS: BASO % 0.4 %; BASO ABS # 0.05 K/uL (0-0.2); EOS ABS # 0.12 K/uL (0-0.5); HEMATOCRIT 38.3 % (37-47); HEMOGLOBIN 12.8 g/dL (12.0-16.0); IG# 0.05 K/uL (0.00-0.02); LYMPH % 5.3 %; LYMPH ABS # 0.65 K/uL (1.2-3.4); MEAN CELL VOLUME 96.5 fL (80-100); MEAN CORPUSCULAR HEMOGLOBIN 32.2 pg (25-34); MEAN CORPUSCULAR HGB CONC 33.4 g/dl (32-36); MEAN PLATELET VOLUME 10.9 fL (7.4-10.4); MONO % 4.5 %; MONO ABS # 0.55 K/uL (0.11-0.59); NEUT % 88.4 %; NEUT ABS # 10.87 K/uL (1.4-6.5); PLATELET COUNT 269 K/uL (130-400); RED CELL DISTRIBUTION WIDTH CV 14.4 % (11.5-14.5); RED CELL DISTRIBUTION WIDTH SD 51.4 fL (36.4-46.3); WHITE BLOOD COUNT 12.29 K/uL (4.8-10.8)
[2017-08-24 17:38] LABS: ALBUMIN 3.5 gm/dl (3.4-5.0); ALT/SGPT 28 U/L (12-78); AST/SGOT 24 U/L (15-37); BLOOD UREA NITROGEN 21 mg/dl (7-18); CARBON DIOXIDE 34 mmol/L (21-32); CREATININE 0.81 mg/dl (0.60-1.20); GLUCOSE 139 mg/dl (70-99); POTASSIUM 3.3 mmol/L (3.5-5.1); SODIUM 137 mmol/L (136-145)
[2017-08-24 17:48] LABS: ALKALINE PHOSPHATASE 82 U/L (45-117); TOTAL PROTEIN 6.9 gm/dl (6.4-8.2)
== END | disposition home or self-care (01) ==
LOC: C.LABBC 14:29
PROVIDERS: ATTEND Internal Medicine Endocrinology, Diabetes & Metabolism
DX: E55.9 Vitamin D deficiency, unspecified (principal); E03.9 Hypothyroidism, unspecified; I48.2 Chronic atrial fibrillation; J44.9 Chronic obstructive pulmonary disease, unspecified; I50.32 Chronic diastolic (congestive) heart failure

== ENCOUNTER → 2017-08-27 | Outpatient (CLI) | payer OTHER ==
--- NOTE | 2017-08-27 16:28 | DIAGNOSTIC IMAGING REPORT ---
CHEST 2 VIEWS ROUTINE HISTORY: 87 years-old Female J44.9 Chronic obstructive pulmonary disease COMPARISON: Chest radiograph 05/13/2017 TECHNIQUE: PA and lateral views of the chest FINDINGS: Cardiac silhouette is mildly enlarged, unchanged. Endograft of the ascending aorta. Atherosclerosis of the aorta. Small left and trace right pleural effusions with mild pulmonary vascular congestion. No pneumothorax. Subsegmental bibasilar opacities. Lungs are mildly hyperinflated. The bones appear grossly intact. IMPRESSION: 1. Cardiomegaly with mild pulmonary vascular congestion. 2. Small left and trace right pleural effusions with bibasilar opacities suggesting atelectasis. 3. Background emphysema. The above report was generated using voice recognition software. It may contain grammatical, syntax or spelling errors. Electronically signed by: Camden Avendano M.D. 08/27/2017 4:27 PM Dictated Date/Time: 08/27/2017 4:25 PM
== END | disposition home or self-care (01) ==
LOC: C.RAD1850 15:19
PROVIDERS: ATTEND Internal Medicine Pulmonary Disease
DX: J44.9 Chronic obstructive pulmonary disease, unspecified (principal); I51.7 Cardiomegaly; R91.8 Other nonspecific abnormal finding of lung field

== ENCOUNTER → 2017-09-06 | Outpatient (CLI) | payer OTHER ==
--- NOTE | 2017-09-06 15:34 | DIAGNOSTIC IMAGING REPORT ---
CHEST 2 VIEWS ROUTINE CLINICAL HISTORY: J44.9 Chronic obstructive pulmonary [id number] Pleural effusionR COMPARISON STUDY: 08/27/2017 FINDINGS: Unchanging components of emphysematous change. Slight increase in volume of a left and to a lesser extent minimal right pleural effusion. Mild stable cardiomegaly. Valve stent is again noted. IMPRESSION: Slight increase in volume of the patient's bilateral pleural effusions. Study is otherwise unchanged. The above report was generated using voice recognition software. It may contain grammatical, syntax or spelling errors. Electronically signed by: Fred Metzger M.D. 09/06/2017 3:33 PM Dictated Date/Time: 09/06/2017 3:31 PM
[2017-09-06 16:10] LABS: BLOOD UREA NITROGEN 23 mg/dl (7-18); CARBON DIOXIDE 36 mmol/L (21-32); CREATININE 0.83 mg/dl (0.60-1.20); GLUCOSE 129 mg/dl (70-99); POTASSIUM 3.9 mmol/L (3.5-5.1); SODIUM 138 mmol/L (136-145)
== END | disposition home or self-care (01) ==
LOC: C.RAD1850 14:45
PROVIDERS: ATTEND Internal Medicine Pulmonary Disease
DX: J44.9 Chronic obstructive pulmonary disease, unspecified (principal); J90 Pleural effusion, not elsewhere classified; I50.32 Chronic diastolic (congestive) heart failure

== ENCOUNTER → 2017-09-27 | Outpatient (CLI) | payer OTHER ==
--- NOTE | 2017-09-27 12:43 | DIAGNOSTIC IMAGING REPORT ---
CHEST 2 VIEWS ROUTINE CLINICAL HISTORY: J90 Pleural [id number] COMPARISON STUDY: 09/06/2017 FINDINGS: The cardiac and mediastinal contours remain stable. 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 There are persistent small bilateral pleural effusions left greater than right. There is minor interstitial thickening/edema. Underlying emphysema is suspected. There is no acute parenchymal consolidation[ IMPRESSION: Persistent bilateral pleural effusions left greater than right with slight interval decrease in the amount of pleural fluid Electronically signed by: Stephen Cobos M.D. 09/27/2017 12:41 PM Dictated Date/Time: 09/27/2017 12:40 PM
== END | disposition home or self-care (01) ==
LOC: C.RADBC 11:33
PROVIDERS: ATTEND Internal Medicine Pulmonary Disease
DX: J90 Pleural effusion, not elsewhere classified (principal)

== ENCOUNTER 2017-10-02 13:29 | Emergency (ER) | payer OTHER ==
[2017-10-02] MEDS ORDERED: METHYLPREDNISOLONE 125 MG VIAL IV STA (13:47)
[2017-10-02 13:51] VITALS: O2SAT 99
[2017-10-02] MEDS ORDERED: ALBUT/IPRATROP 3MG/0.5MG NEB 3 ML VIAL INH ONE (14:00)
[2017-10-02 14:08] VITALS: PULSE 81; O2SAT 98
--- NOTE | 2017-10-02 14:37 | DIAGNOSTIC IMAGING REPORT ---
CHEST ONE VIEW PORTABLE HISTORY: Short of breath. COMPARISON: Chest 09/27/2017. FINDINGS: No pneumothorax. Trace right and small left pleural effusions have slightly increased in size. No new focal lung consolidations to suggest pneumonia. The heart is mildly enlarged. This has increased in size. An aortic valve prosthesis is identified. Diffuse interstitial thickening has slightly progressed. IMPRESSION: Developing mild pulmonary edema, cardiomegaly, and bilateral pleural effusions which have progressed. Electronically signed by: Brarera Gutiérrez M.D. 10/02/2017 2:36 PM Dictated Date/Time: 10/02/2017 2:34 PM
[2017-10-02 14:38] LABS: INR 1.1 (0.9-1.1)
[2017-10-02 14:39] LABS: BASO % 0.2 %; BASO ABS # 0.03 K/uL (0-0.2); EOS % 1.4 %; EOS ABS # 0.21 K/uL (0-0.5); HEMATOCRIT 41.3 % (37-47); HEMOGLOBIN 13.7 g/dL (12.0-16.0); IG# 0.06 K/uL (0.00-0.02); LYMPH % 4.8 %; LYMPH ABS # 0.72 K/uL (1.2-3.4); MEAN CELL VOLUME 93.4 fL (80-100); MEAN CORPUSCULAR HGB CONC 33.2 g/dl (32-36); MEAN PLATELET VOLUME 10.1 fL (7.4-10.4); MONO % 6.1 %; MONO ABS # 0.91 K/uL (0.11-0.59); NEUT % 87.1 %; NEUT ABS # 13.05 K/uL (1.4-6.5); PLATELET COUNT 297 K/uL (130-400); RED CELL DISTRIBUTION WIDTH CV 14.1 % (11.5-14.5); RED CELL DISTRIBUTION WIDTH SD 48.1 fL (36.4-46.3); WHITE BLOOD COUNT 14.98 K/uL (4.8-10.8)
[2017-10-02 14:40] LABS: BLOOD UREA NITROGEN 13 mg/dl (7-18); CALCIUM 9.3 mg/dl (8.5-10.1); CARBON DIOXIDE 35 mmol/L (21-32); GLUCOSE 134 mg/dl (70-99); POTASSIUM 3.4 mmol/L (3.5-5.1); SODIUM 139 mmol/L (136-145)
[2017-10-02] MEDS ORDERED: NZRCR TD (14:52)
[2017-10-02] MEDS ORDERED: FUROSEMIDE INJ 20 MG in SYRINGE 0 ML IV ONE (15:15)
[2017-10-02] MEDS ORDERED: BUME1TAB PO (15:16)
[2017-10-02] MEDS ORDERED: TIOT1SPR INH (15:16)
[2017-10-02] MEDS ORDERED: PRED10TA PO (15:16)
[2017-10-02] MEDS ORDERED: LPR50X PO (15:16)
[2017-10-02] MEDS ORDERED: CARB1SOL15 OP (15:16)
[2017-10-02] MEDS ORDERED: BCTROWC EXT (15:16)
[2017-10-02 17:20] VITALS: BP 176/95; PULSE 101; O2SAT 94
--- NOTE | 2017-10-02 18:32 | EMERGENCY ROOM VISIT NOTE ---
History Report prepared by Luana: Gurpreet Sewell Under the Supervision of: Dr. Ino Quintana M.D. First contact with patient: 13:38 Chief Complaint: RESPIRATORY PROBLEMS Stated Complaint: CHEST PAIN,DIFFICULTY BREATHING,NAUSEA History of Present Illness The patient is an 87 year old female with a history of acute respiratory failure and COPD who presents to the Emergency Room with complaints of worsening shortness of breath this morning. She says that she is short of breath "all the time over the past 2 to 3 years", but it got really bad this morning. Per the patient's before and after school daycare worker, the patient's oxygen saturation was in the 70s on 5 liters of oxygen this morning around 3 and a half hours ago. The aide does state that she has not been breathing through her nose. The patient states that she has felt nauseous this morning which is not normal. She adds that she has been feeling very cold, with a mild cough that is getting a bit productive. The patient has been using her nebulizer every 3 hours without relief. She adds that she has had a bit of chest pain that she describes as bruising, which she first mentioned to her before and after school daycare worker around an hour and a half ago. The patient notes that she had aortic stenosis last year. The patient denies any recent fevers. She states that she is on Eliquis for atrial fibrillation. The patient notes that her heart is "twice the size and like leather". She says that she does not want to be put on a ventilator if it is necessary. Source of History: patient, caregiver Onset: This morning Position: other (global) Symptom Intensity: O2 sats in 70s on 5 liters this morning Quality: other (shortness of breath) Associated Symptoms: + cough, + nausea, No fevers Note: Associated symptoms: Very cold. Review of Systems See HPI for pertinent positives & negatives. A total of 10 systems reviewed and were otherwise negative. 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 (22) Neck pain (23) Pneumonia (24) Pneumonia (25) Recurrent falls (26) Respiratory distress (27) Right humeral fracture (28) Severe aortic stenosis by prior echocardiogram (29) SOB (shortness of breath) Family History Heart disease Hypertension Social History Smoking Status: Former Smoker Alcohol Use: none Drug Use: none Marital Status: Housing Status: lives alone Occupation Status: retired Current/Historical Medications Scheduled Apixaban (Eliquis), 2.5 MG PO BID Aspirin (Aspirin), 81 MG PO Q24H Budesonide (Inhalation) (Pulmicort Respules 0.25MG/2ML), 1 VIAL NEB BID Bumetanide (Bumex), 1 MG PO DAILY Carboxymethylcellulose-Glyceri (Refresh Optive Jimmie-3 0.5-1-0.5 %), 1-2 DROPS OP DAILY Digoxin (Digoxin), 0.125 MG PO DAILY@16 Ergocalciferol (Vitamin D 29829 Unit), 50,000 INTER.UNIT PO WK Furosemide (Lasix), 40 MG PO DAILY Home O2 Therapy (Oxygen), 3-4 LITERS NA HS Ketoconazole (Ketoconazole), 1 APPLN TD BID Levalbuterol (Levalbuterol HCl), 0.63 MG INH Q6R Levothyroxine Sodium (Levothyroxine Sodium), 75 MCG PO QAM Metoprolol Tartrate (Metoprolol Tartrate), 50 MG PO BID Multiple Vitamins W/ Minerals (Multi Complete), 1 CAP PO DAILY Mupirocin (Bactroban 2% Oint), 1 APPLN EXT DIRECTED Potassium Ext Rel (Klor-Con), 20 MEQ PO DAILY Prednisone Tab (Prednisone), 10 MG PO DAILY Tiotropium [place] (Spiriva Respimat), 2 PUFF INH DAILY Travoprost (Travatan Z), 1 DROPS OP HS Scheduled PRN Docusate Sodium (Docusate Sodium), 100 MG PO TID PRN for Constipation Allergies Coded Allergies: Clonidine (Verified Allergy, Mild, SHORTNESS OF BREATH, 10/02/17) Iodinated Diagnostic Agents (Verified Allergy, Unknown, "IT JUST AFFECTS ME AND I CAN'T EXPLAIN IT", 10/02/17) Latex1 -Allergic Contact Dermititis (Verified Allergy, Unknown, RASH, 10/02) Penicillins (Verified Allergy, Unknown, UNKNOWN, 10/02/17) Sulfa Antibiotics (Verified Allergy, Unknown, "SWELLING IN MOUTH AND DRIED OUT", 10/02/17) Physical Exam Vital Signs Date Time Temp Pulse Resp B/P (MAP) Pulse Ox O2 Delivery O2 Flow Rate FiO2 10/02/17 17:20 101 22 176/95 94 10/02/17 17:01 101 22 176/95 94 Oxymask 4.0 10/02/17 16:27 111 27 181/105 93 Oxymask 5.0 10/02/17 15:17 106 30 161/97 94 Oxymask 5.0 10/02/17 14:08 81 18 98 Mask 10/02/17 13:57 80 10/02/17 13:56 99 Oxymask 5.0 10/02/17 13:51 99 Oxymask 5.0 10/02/17 13:31 82 24 86 Nasal Cannula 5.0 Physical Exam Constitutional: Vital signs reviewed. Eyes: Pupils are equal round reactive to light. Conjunctiva are noninjected. ENT: Pharynx is clear without erythema or exudate. Mucous membranes are moist. Neck supple without meningeal signs. Respiratory: Diffuse wheezing bilaterally with poor air entry bilaterally. Breath sounds are equal bilaterally. Cardiovascular: Irregularly irregular rhythm with a rate of 75. No rubs or gallops. GI: Soft, nondistended and nontender. Bowel sounds are present. Musculoskeletal: No peripheral edema. No lower extremity tenderness. Integumentary: No cyanosis. Neurological: The patient is awake and alert. Patient is hard of hearing. Psychiatric: Normal affect. Medical Decision & Procedures ER Provider Diagnostic Interpretation: X-ray results as stated below per interpretation by me and the radiologist: CHEST ONE VIEW PORTABLE HISTORY: Short of breath. COMPARISON: Chest 09/27/2017. FINDINGS: No pneumothorax. Trace right and small left pleural effusions have slightly increased in size. No new focal lung consolidations to suggest pneumonia. The heart is mildly enlarged. This has increased in size. An aortic valve prosthesis is identified. Diffuse interstitial thickening has slightly progressed. IMPRESSION: Developing mild pulmonary edema, cardiomegaly, and bilateral pleural effusions which have progressed. Electronically signed by: Barrera Gutiérrez M.D. 10/02/2017 2:36 PM Dictated Date/Time: 10/02/2017 2:34 PM Laboratory Results 10/02/17 13:59 Red Blood Count 4.42, Mean Corpuscular Volume 93.4, Mean Corpuscular Hemoglobin 31.0, Mean Corpuscular Hemoglobin Concent 33.2, Mean Platelet Volume 10.1, Neutrophils (%) (Auto) 87.1, Lymphocytes (%) (Auto) 4.8, Monocytes (%) (Auto) 6.1, Eosinophils (%) (Auto) 1.4, Basophils (%) (Auto) 0.2, Neutrophils # (Auto) 13.05, Lymphocytes # (Auto) 0.72, Monocytes # (Auto) 0.91, Eosinophils # (Auto) 0.21, Basophils # (Auto) 0.03 10/02/17 13:59 Test 10/02/17 13:59 10/02/17 14:19 White Blood Count 14.98 K/uL (4.8-10.8) Red Blood Count 4.42 M/uL (4.2-5.4) Hemoglobin 13.7 g/dL (12.0-16.0) Hematocrit 41.3 % (37-47) Mean Corpuscular Volume 93.4 fL (80-100) Mean Corpuscular Hemoglobin 31.0 pg (25-34) Mean Corpuscular Hemoglobin Concent 33.2 g/dl (32-36) Platelet Count 297 K/uL (130-400) Mean Platelet Volume 10.1 fL (7.4-10.4) Neutrophils (%) (Auto) 87.1 % Lymphocytes (%) (Auto) 4.8 % Monocytes (%) (Auto) 6.1 % Eosinophils (%) (Auto) 1.4 % Basophils (%) (Auto) 0.2 % Neutrophils # (Auto) 13.05 K/uL (1.4-6.5) Lymphocytes # (Auto) 0.72 K/uL (1.2-3.4) Monocytes # (Auto) 0.91 K/uL (0.11-0.59) Eosinophils # (Auto) 0.21 K/uL (0-0.5) Basophils # (Auto) 0.03 K/uL (0-0.2) RDW Standard Deviation 48.1 fL (36.4-46.3) RDW Coefficient of Variation 14.1 % (11.5-14.5) Immature Granulocyte % (Auto) 0.4 % Immature Granulocyte # (Auto) 0.06 K/uL (0.00-0.02) Prothrombin Time 11.4 SECONDS (9.0-12.0) Prothromb Time International Ratio 1.1 (0.9-1.1) Activated Partial Thromboplast Time 26.0 SECONDS (21.0-31.0) Partial Thromboplastin Ratio 1.0 Anion Gap 5.0 mmol/L (3-11) Estimated GFR () 77.4 Estimated GFR (Non- 66.8 BUN/Creatinine Ratio 16.5 (10-20) Calcium Level 9.3 mg/dl (8.5-10.1) Pro-B-Type Natriuretic Peptide 2749 pg/ml (0-1800) Bedside Troponin I 0.070 ng/ml (0-0.045) Laboratory results as reviewed by me. Medications Administered Medications (Trade) Dose Ordered Sig/Yared Route Start Time Stop Time Status Last Admin Dose Admin Methylprednisolone Sodium Succinate (Solu-Medrol IV) 125 mg NOW STAT IV 10/02/17 13:47 10/02/17 13:50 DC 10/02/17 14:23 125 MG Albuterol/ Ipratropium (Duoneb) 12 ml ONE ONCE INH 10/02/17 14:00 10/02/17 14:01 DC 10/02/17 14:08 12 ML ECG Per My Interpretation Indication: SOB/dyspnea Rate (beats per minute): 75 Rhythm: atrial fibrillation Findings: LBBB, ST depression (Lateral) Change: no significant change (from May 13 2017) ED Course 1339: The patient was evaluated in room B11B. A complete history and physical exam was performed. 1347: Solu-Medrol IV 125 mg. 1400: DuoNeb 12 ml INH. 1500: I reevaluated the patient and discussed the test results with her. I recommended that she stay in the hospital, but she is refusing to stay. I then got called away for a critically ill patient. 1513: I talked to the patient again about the test results, and again told her that she needed to stay in the hospital but she is still refusing, but wants to talk further. I then had to be called away again, but will reassess. 1515: Furosemide 20 mg/Syringe 2 ml @ 4 mls/min IV. 1536: I spoke to the patient again, and recommended stay in the hospital. I reviewed again the risks of leaving including and permanent disability. She says that if I can get a hold of John Garvin of cardiology within the hour she might stay. 1541: I discussed the patient with John Garvin - [facility] - he will come see her around 1630. 1545: The patient has agreed to stay to see John Garvin. I reevaluated the patient and auscultation of her lungs demonstrates persistent wheezing with improved air entry. 1650: I reevaluated the patient and talked to her again. John Garvin spoke to the patient for 20 minutes, and neither of use were able to convince her to stay. She will leave against medical advice. She has an appointment with her novelties sales representative at 1100 and will see John Garvin after that. Medical Decision This is an 87-year-old female presenting with difficulty breathing and chest pain. Differential diagnosis includes pneumonia, COPD exacerbation, CHF exacerbation, non-STEMI, pulmonary edema, pleural effusion. I did perform a limited focused review of portions of the patient's old chart on the electronic medical record. The patient was here in April for acute respiratory failure and COPD exacerbation. I did evaluate the patient as noted above. Patient is presenting with hypoxia. On examination she has diffuse wheezing. I did wish to put her on BiPAP but the patient refused. I did order an hour-long continuous nebulizer with albuterol and Atrovent. She was also given Solu-Medrol 125 mg IV. IV access was established. The patient was placed on a continuous ekg monitor tech. I did order and personally review the patient's 12-lead EKG and chest x-ray as described above. Her chest x-ray does not demonstrate pneumonia. She does have worsening vascular congestion and bilateral trace pleural effusions with slight progression. I did treat her with Lasix IV. I did order and review the patient's blood work as noted in the electronic medical record. Her white blood cell count is elevated but she has been on prednisone. Her troponin and BNP are elevated. She does state that she has had chest pain described as a bruise just left of her sternum. She has no reproducible tenderness there. I did reassess the patient. She had some improvement of her air entry but continues to have wheezing. I did discuss her test results with her in detail. I did recommend hospitalization. She adamantly refused admission. I did talk to her several times about risks of leaving AGAINST MEDICAL ADVICE but she would not stay in the hospital. She was willing to stay to speak to her registrar assistant physician drafter assistant John Garvin. He was kind enough to do an emergent consult in the ED. He did talk to her but he was also unable to get her to stay in the hospital. She is satting 94% on 4 L with a facemask. She understands that by leaving she risks potential , heart attack, stroke or permanent mental or physical handicap. She did understand this and still wanted to leave. She does have an appointment with her novelties sales representative at 11: 00 tomorrow and will see John Garvin at 12:00 tomorrow. She was told to return at any time should she change her mind or have any other concerning symptoms. Medication Reconcilliation Current Medication List: was personally reviewed by me Blood Pressure Screening Patient's blood pressure: Elevated blood pressure Blood pressure disposition: Referred to PCP Consults Time Called: 1538 Consulting Physician: John Bethea PA-C Cardiology Returned Call: 1541 I discussed the patient with John Bethea PA-C Cardiology - he will come see her around 1630. Impression Primary Impression: Acute exacerbation of CHF (congestive heart failure) Additional Impressions: Acute exacerbation of chronic obstructive pulmonary disease (COPD) Hypoxia Elevated troponin Bilateral pleural effusion Left against medical advice Precordial chest pain Critical Care I have personally spent 35 minutes of critical care time in the direct management of this patient. This includes bedside care, interpretation of diagnostic studies and testing, discussion with consultants and patient, and other required patient management activities. This time is in excess of all separately billable procedures. Scribe Attestation The scribe's documentation has been prepared under my direct and personally reviewed by me in its entirety. I confirm that the note above accurately reflects all work, treatment, procedures, and medical decision making performed by me. Departure Information Dispostion Against Medical Advice Referrals Sheila Hurtado M.D. (PCP) Patient Instructions My [facility] Additional Instructions You are leaving the hospital AGAINST MEDICAL ADVICE. By doing so you risk or permanent mental or physical handicap. You may also develop other unforeseen negative consequences. You are declining hospitalization and any further testing to rule out any life-threatening illness. Follow up with your novelties sales representative tomorrow as per your appointment as well as with John Garvin tomorrow. You may return at any time if you change your mind or if you develop worsening symptoms or any new concerning symptoms. Problem Qualifiers Primary Impression: Acute exacerbation of CHF (congestive heart failure) Heart failure type: unspecified Qualified Codes: I50.9 - Heart failure, unspecified
== END 2017-10-02 17:21 | disposition left against medical advice (07) ==
LOC: C.EDB 13:30
DX: I50.9 Heart failure, unspecified (principal); J44.1 Chronic obstructive pulmonary disease with (acute) exacerbation; I48.91 Unspecified atrial fibrillation; Z79.01 Long term (current) use of anticoagulants; R79.89 Other specified abnormal findings of blood chemistry; F41.9 Anxiety disorder, unspecified; I11.0 Hypertensive heart disease with heart failure; Z98.49 Cataract extraction status, unspecified eye; Z85.820 Personal history of malignant melanoma of skin; Z87.01 Personal history of pneumonia (recurrent); Z87.891 Personal history of nicotine dependence; Z82.49 Family history of ischemic heart disease and other diseases of the circulatory system; Z79.82 Long term (current) use of aspirin; Z79.899 Other long term (current) drug therapy; Z88.8 Allergy status to other drugs, medicaments and biological substances; Z88.0 Allergy status to penicillin; Z88.2 Allergy status to sulfonamides; Z91.041 Radiographic dye allergy status; Z91.040 Latex allergy status

== ENCOUNTER 2018-07-23 16:43 | Inpatient (IN) ==
[2018-07-23] MEDS ORDERED: ALBUT/IPRATROP 3MG/0.5MG NEB 3 ML VIAL NEB STA (17:12)
--- NOTE | 2018-07-23 17:25 | XRay Report ---
SINGLE VIEW CHEST CLINICAL HISTORY: Dyspnea. FINDINGS: An AP, portable, upright chest radiograph is compared to study dated 07/15/2018 and correlat ed with chest CT dated 04/20/2017. The examination is degraded by portable technique and patient rotat ion. The heart is enlarged and there is evidence of previous cardiac valve surgery. The pulmonary va sculature is noncongested. There is atherosclerotic calcification of the thoracic aorta. Advanced emp hysema and chronic interstitial thickening are similar to previous. There is a small to moderate left pleural effusion with associated left basilar consolidation. This has not significantly changed from 07/15/2018. The right lung appears clear. No pneumothorax is seen. The skeletal structures are osteop enic. The bony thorax is grossly intact. Atherosclerotic calcification is noted in the carotid bulbs. IMPRESSION: 1. Cardiomegaly and advanced emphysema. There is no radiographic evidence of congestive failure. 2. A small to moderate left pleural effusion with associated left basilar consolidation has not signi ficantly changed from 07/15/2018. Electronically signed by: Dejon Rodriguez M.D. 07/23/2018 5:23 PM
[2018-07-23] MEDS ORDERED: ALBUT/IPRATROP 3MG/0.5MG NEB 3 ML VIAL NEB ONE (17:35)
[2018-07-23 17:51] LABS: Basophils # (auto) 0.06 K/uL (0-0.2); Basophils % (auto) 0.5 %; Eosinophils # (auto) 0.16 K/uL (0-0.5); Eosinophils % (auto) 1.4 %; Hematocrit (blood only) 48.5 % (37-47); Hemoglobin 16.4 g/dL (12.0-16.0); Immature Granulocytes # (auto) 0.03 K/uL (0.00-0.02); Immature Granulocytes % (auto) 0.3 %; Lymphocytes # (auto) 0.65 K/uL (1.2-3.4); Lymphocytes % (auto) 5.5 %; Mean Corpuscular Hgb Conc 33.8 g/dL (32-36); Mean Corpuscular Volume 95.8 fL (80-100); Monocytes # (auto) 1.01 K/uL (0.11-0.59); Monocytes % (auto) 8.5 %; Neutrophils # (auto) 9.92 K/uL (1.4-6.5); Neutrophils % (auto) 83.8 %; Platelet Count 224 K/uL (130-400); RDW Coefficient of Variation 14.7 % (11.5-14.5); RDW Standard Deviation 51.8 fL (36.4-46.3); Red Blood Count 5.06 M/uL (4.2-5.4); White Blood Count 11.83 K/uL (4.8-10.8)
[2018-07-23 17:59] LABS: Base Excess VBG 8.3 mEq/L; Oxygen Saturation VBG 84.7 %; pH VBG 7.43 (7.36-7.41)
[2018-07-23 18:06] LABS: INR 1.4 (0.9-1.1); Partial Thromboplastin Time 28.3 Seconds (21.0-31.0); Prothrombin Time 14.2 Seconds (9.0-12.0)
[2018-07-23 18:08] LABS: BUN Creatinine Ratio 26.9 (10-20); Calcium 8.6 mg/dl (8.5-10.1); Creatinine Clr Calc Pharmacy 33.9 ml/min; Est GFR (African American) 72.4; Est GFR (Non-African American) 62.5; Potassium 3.5 mmol/L (3.5-5.1)
[2018-07-23 18:14] LABS: Albumin Globulin Ratio 0.9 (0.9-2); Bilirubin,Total 1.1 mg/dl (0.2-1); Globulin 3.4 gm/dl (2.5-4.0); Total Protein 6.4 gm/dl (6.4-8.2); Troponin I 0.047 ng/ml (0-0.045)
[2018-07-23 18:21] LABS: Appearance Urine Clear (Clear); Bacteria Urine Automated Negative (Negative); Bilirubin Urine Negative (Negative); Blood Urine 1+ (Negative); Color Urine Yellow; Epithelial Cell Urine Auto 0-5 /lpf (0-5); Glucose Urine UA Negative (Negative); Ketones Urine Negative (Negative); Leukocyte Esterase Urine Trace (Negative); Nitrite Urine Negative (Negative); Specific Gravity Urine 1.011 (1.000-1.030); Urobilinogen Urine Negative (Negative); pH Urine 7.5 (4.5-7.5)
[2018-07-23 18:23] LABS: Protein Urine 2+ (Negative)
[2018-07-23] MEDS: ALBUT/IPRATROP 3MG/0.5MG NEB 3 ML VIAL NEB SCH ×3 (18:51→23:45)
[2018-07-23] MEDS ORDERED: LEVOFLOXACIN/D5W 750 MG/150 ML BAG IV ONE (19:08)
--- NOTE | 2018-07-23 19:12 | Emergency Department Note ---
ED Visit Note I assisted in the care of this patient with Dr. Dewitt . Resident Activity Tracking Resident Involvement: Resident Care Provided Care Provided: Adult ED
[2018-07-23] MEDS ORDERED: cefTRIAXone SODIUM 1,000 MG/50 ML BAG IV STA (19:55)
--- NOTE | 2018-07-23 21:25 | History & Physical Report ---
Date of Service July 23, 2018 Assessment & Plan (1) Acute respiratory failure with hypoxia: Acute respiratory failure with hypoxia/combination of acute exacerbation of CHF with chronic left pleural effusion/acute COPD exacerbation-- Admit to monitored bed. Present on Admission?: Yes (2) Recurrent left pleural effusion: Recurrent left pleural effusion/acute CHF exacerbation-- Give albumin 25 g with furosemide 40 mg IV x1. Patient's baseline oxygen is 4 L at home, but had been increased to 6 L in the ED. We will consult Dr. Shoemaker, whom she ass seen in the outpatient office regarding the pleural effusion. Will assess response to albumin furosemide combination regarding CHF exacerbation and attempt to decrease oxygen to her baseline. Present on Admission?: Yes (3) Acute exacerbation of CHF (congestive heart failure): As above. Present on Admission?: Yes (4) Elevated troponin: CAD/atrial fibrillation/hypertension/chronically elevated and declining troponin/worsening T wave inversions V5 and 6-- Will follow serial troponins and EKGs. EKG shows atrial fibrillation, with left bundle branch block, and worsening T wave inversions in leads V5 and V6. Continue apixaban 2.5 mg p.o. twice daily, aspirin 81 mg daily, digoxin 1.5 mcg p.o. every afternoon, metoprolol tartrate 50 mg p.o. every 12 hours and potassium chloride 20 mg once p.o. daily. Hold her oral furosemide for now, in lieu of IV as noted above. Consult cardiology. Present on Admission?: Yes (5) COPD (chronic obstructive pulmonary disease): COPD exacerbation- Increased frequency of Xopenex nebulizers to 4 times daily. Add Pulmicort rest feels 0.5 mg inhaled twice daily. Patient is concerned about side effects of prednisone, and presently has been taking prednisone decreasing to 5 mg daily, and was therefore not placed on IV Solu-Medrol. Present on Admission?: Yes (6) UTI (urinary tract infection): Placed on ceftriaxone 1 g IV daily to cover urine and pulmonary issues. Present on Admission?: Yes (7) Recurrent falls: Likely due to a combination of generalized deconditioning, CHF exacerbation, COPD exacerbation. Her physical activity significantly limited by her oxygenation status. May consider consultation with PT. Present on Admission?: Yes History of Present Illness Chief Complaint: The patient presents to the emergency department with worsening of her chronic shortness of breath and dyspnea on exertion. Primary Care Provider: Sheila Hurtado MD The patient is an 88-year-old female with a past medical history including severe COPD and left pleural effusion, who was sent to the emergency department by her home care nurse today with concerns regarding a possible pneumonia associated with a worsening hypoxia at home. She typically is on 4 L nasal cannula oxygen at baseline. She has had 3 recent falls over the past week, with the last one being yesterday, and denies any specific injury. The patient has been seen by Dr. Shoemaker in the outpatient office regarding the pleural effusion, and plans were to have a repeat chest x-ray to monitor the size of the effusion, as per the patient's notation, the 2 most recent x-rays did not show any significant worsening of the pleural effusion. She denies any associated chest pain. She reports that she also follows with Dr. Rucker from pulmonology, who has agreed to help her gradually taper off prednisone, at 1 mg/month rate, since she is concerned that the risks of prednisone use, in addition to causing her lower extremity edema, is affecting her skin as well. Allergies Allergy/AdvReac Type Severity Reaction Status Date / Time clonidine Allergy Mild SHORTNESS Verified 10/02/17 14:53 OF BREATH amlodipine Allergy Unknown rash,dizzy/balance Verified 07/23/18 19:40 off Iodinated Contrast- Oral and Allergy Unknown "IT JUST Verified 10/02/17 14:53 IV Dye AFFECTS ME AND I CAN'T EXPLAIN IT" latex Allergy Unknown RASH Verified 10/02/17 14:53 Penicillins Allergy Unknown UNKNOWN Verified 10/02/17 14:53 Sulfa (Sulfonamide Allergy Unknown "SWELLING Verified 10/02/17 14:53 Antibiotics) IN MOUTH AND DRIED OUT" atenolol Allergy Rash/dizzy Verified 07/23/18 19:40 clarithromycin Allergy Rash Verified 07/23/18 19:40 gatifloxacin Allergy rash/dizzy/ Verified 07/23/18 19:40 lightheaded losartan Allergy rash/dizzy Verified 07/23/18 19:40 Home Medications Home Medications Medication Instructions Recorded Confirmed Type apixaban [Eliquis] 2.5 mg PO BID 07/23/18 07/23/18 History aspirin [Aspir-81] 81 mg PO DAILY 07/23/18 07/23/18 History digoxin [Digox] 125 mcg PO QPM 07/23/18 07/23/18 History fluocinolone acetonide oil 1 dose OTB UD PRN 07/23/18 07/23/18 History furosemide [Lasix] 80 mg PO DAILY 07/23/18 07/23/18 History ipratropium bromide 2 spray INTRANASAL TID PRN 07/23/18 07/23/18 History ipratropium-albuterol [Combivent 1 puff INHALATION TID 07/23/18 07/23/18 History Respimat] lactobacillus combination no.4 0 mmu cells PO DAILY 07/23/18 07/23/18 History [Probiotic] levalbuterol HCl [Xopenex] 1 dose INHALATION TID PRN 07/23/18 07/23/18 History levothyroxine 75 mcg PO DAILY 07/23/18 07/23/18 History metoprolol tartrate [Lopressor] 50 mg PO Q12 07/23/18 07/23/18 History multivitamin 1 tab PO DAILY 07/23/18 07/23/18 History potassium chloride 20 meq PO DAILY 07/23/18 07/23/18 History prednisone 5 mg PO DAILY 07/23/18 07/23/18 History travoprost [Travatan Z] 1 drp OPB HS 07/23/18 07/23/18 History Past Med/Surg History Medical History COPD (chronic obstructive pulmonary disease) (Chronic) Anxiety (Chronic) Atrial fibrillation with RVR (Chronic) Social History Preferred Language: Upper Sorbian Communication Ability: Effective Physician Credentialing Specialist Required: No Beliefs That Will Affect Care: None Current Living Situation: Alone Other Information That Helps Us Care for You: No Feels Safe at Home: Yes Safety Concerns: Feels Safe At This Time Smoking Status: Former smoker Hx Alcohol Use: No Hx Substance Use: No Review of Systems The patient denies chest pain, palpitations, sore throat, fevers, chills, sweats, vomiting, diarrhea , constipation, abdominal pain, pelvic pain, blood in urine or stool, dysuria, urinary frequency or urgency, lightheadedness, dizziness, headache, memory loss, loss of consciousness, imbalance, focal weakness, numbness or tingling in arms or legs, generalized arthralgias or myalgias, back or neck pain, or night sweats. The review of systems is otherwise negative other than for that already noted above, and at least 10 systems have been reviewed. Physical Exam Vital Signs (Past 24 Hours): Last Vital Signs Temp 36.0 C L 07/23/18 16:50 Pulse 81 07/23/18 20:32 Resp 33 H 07/23/18 20:32 BP 192/86 H 07/23/18 20:32 Pulse Ox 80 L 07/23/18 20:32 Physical Exam: The patient is awake, alert and oriented 3, hard of hearing, intermittently anxious, normocephalic and atraumatic, lying in bed and in no acute distress. HEENT--PERRL, EOMI, mucous membranes and oropharynx dry. Neck--supple. No JVD. No bruits. Thyroid normal, trachea midline, no adenopathy. Heart--normal S1 and S2. No murmurs, rubs or gallops. Lungs--decreased breath sounds throughout. Intermittent mild respiratory distress with accessory muscle use. Abdomen--normal bowel sounds and soft. Nontender. Nondistended, no hernias or masses, no organomegaly. Extremities--no cyanosis or clubbing. No edema. There are good distal pulses b /l. Dermatologic--ecchymoses throughout. Neurologic--cranial nerves II through XII grossly intact. Rheumatologic--normal range of motion. Psychiatric--intermittently anxious, hard of hearing Results & Data Laboratory Results Laboratory Results WBC 11.83 K/uL (4.8-10.8) H 07/23/18 17:44 RBC 5.06 M/uL (4.2-5.4) 07/23/18 17:44 Hgb 16.4 g/dL (12.0-16.0) H 07/23/18 17:44 Hct 48.5 % (37-47) H 07/23/18 17:44 MCV 95.8 fL (80-100) 07/23/18 17:44 MCH 32.4 pg (25-34) 07/23/18 17:44 MCHC 33.8 g/dL (32-36) 07/23/18 17:44 RDW Std Deviation 51.8 fL (36.4-46.3) H 07/23/18 17:44 RDW Coeff of Krish 14.7 % (11.5-14.5) H 07/23/18 17:44 Plt Count 224 K/uL (130-400) 07/23/18 17:44 MPV 11.0 fL (7.4-10.4) H 07/23/18 17:44 Immature Gran % (Auto) 0.3 % 07/23/18 17:44 Neut % (Auto) 83.8 % 07/23/18 17:44 Lymph % (Auto) 5.5 % 07/23/18 17:44 [place] % (Auto) 8.5 % 07/23/18 17:44 Eos % (Auto) 1.4 % 07/23/18 17:44 Baso % (Auto) 0.5 % 07/23/18 17:44 Immature Gran # (Auto) 0.03 K/uL (0.00-0.02) H 07/23/18 17:44 Neut # (Auto) 9.92 K/uL (1.4-6.5) H 07/23/18 17:44 Lymph # (Auto) 0.65 K/uL (1.2-3.4) L 07/23/18 17:44 [place] # (Auto) 1.01 K/uL (0.11-0.59) H 07/23/18 17:44 Eos # (Auto) 0.16 K/uL (0-0.5) 07/23/18 17:44 Baso # (Auto) 0.06 K/uL (0-0.2) 07/23/18 17:44 PT 14.2 Seconds (9.0-12.0) H 07/23/18 17:44 INR 1.4 (0.9-1.1) H 07/23/18 17:44 APTT 28.3 Seconds (21.0-31.0) 07/23/18 17:44 PTT Ratio 1.0 07/23/18 17:44 VBG pH 7.43 (7.36-7.41) H 07/23/18 17:44 VBG pCO2 53 mmHg (38-50) H 07/23/18 17:44 VBG pO2 51 mmHg 07/23/18 17:44 VBG HCO3 35 mmol/L 07/23/18 17:44 VBG O2 Saturation 84.7 % 07/23/18 17:44 VBG Base Excess 8.3 mEq/L 07/23/18 17:44 Barometric Pressure 730.8 mm/Hg 07/23/18 17:44 Sodium 137 mmol/L (136-145) 07/23/18 17:44 Potassium 3.5 mmol/L (3.5-5.1) 07/23/18 17:44 Chloride 99 mmol/L (98-107) 07/23/18 17:44 Carbon Dioxide 33 mmol/L (21-32) H 07/23/18 17:44 Anion Gap 5.0 (3-11) 07/23/18 17:44 BUN 23 mg/dl (7-18) H 07/23/18 17:44 Creatinine 0.84 mg/dl (0.6-1.2) 07/23/18 17:44 Est Cr Clr Drug Dosing 33.9 ml/min 07/23/18 17:44 Est GFR ( Amer) 72.4 07/23/18 17:44 Est GFR (Non-Af Amer) 62.5 07/23/18 17:44 BUN/Creatinine Ratio 26.9 (10-20) H 07/23/18 17:44 Glucose 164 mg/dl (70-99) H 07/23/18 17:44 Calcium 8.6 mg/dl (8.5-10.1) 07/23/18 17:44 Total Bilirubin 1.1 mg/dl (0.2-1) H 07/23/18 17:44 AST 29 U/L (15-37) 07/23/18 17:44 ALT 25 U/L (12-78) 07/23/18 17:44 Alkaline Phosphatase 170 U/L (45-117) H 07/23/18 17:44 Troponin I 0.060 ng/ml (0-0.045) H* 07/23/18 22:57 Total Protein 6.4 gm/dl (6.4-8.2) 07/23/18 17:44 Albumin 3.0 gm/dl (3.4-5.0) L 07/23/18 17:44 Globulin 3.4 gm/dl (2.5-4.0) 07/23/18 17:44 Albumin/Globulin Ratio 0.9 (0.9-2) 07/23/18 17:44 Urine Color Yellow 07/23/18 18:05 Urine Appearance Clear (Clear) 07/23/18 18:05 Urine pH 7.5 (4.5-7.5) 07/23/18 18:05 Ur Specific [place] 1.011 (1.000-1.030) 07/23/18 18:05 Urine Protein 2+ (Negative) H 07/23/18 18:05 Urine Glucose (UA) Negative (Negative) 07/23/18 18:05 Urine Ketones Negative (Negative) 07/23/18 18:05 Urine Blood 1+ (Negative) H 07/23/18 18:05 Urine Nitrite Negative (Negative) 07/23/18 18:05 Urine Bilirubin Negative (Negative) 07/23/18 18:05 Urine Urobilinogen Negative (Negative) 07/23/18 18:05 Ur Leukocyte Esterase Trace (Negative) H 07/23/18 18:05 Urine WBC (Auto) 10-30 /hpf (0-5) H 07/23/18 18:05 Urine RBC (Auto) 5-10 /hpf (0-4) H 07/23/18 18:05 U Hyaline Cast (Auto) 1-5 /lpf (0-5) 07/23/18 18:05 U Epithel Cells (Auto) 0-5 /lpf (0-5) 07/23/18 18:05 Urine Bacteria (Auto) Negative (Negative) 07/23/18 18:[address] [facility] [place] [phone] XRay Report Patient: FLAVIA MORENO Date: 07/23/18 MR#: [id number]: [id number] Acct ID:[id number]: Date: 1City Zip: [place] [address] Age: 88Location: ED Sex: F Room/Bed: Att Phy: Diagnosis: SOB Denise Phy: Sheila Hurtado MDService Date: 07/23/18 Fam Phy: Lee Shoemaker MDInterpreting Phy: Dejon Rodriguez MD Admit Phy: Ordering Phy: Nas Dewitt, cc: ~ SINGLE VIEW CHEST CLINICAL HISTORY: Dyspnea. FINDINGS: An AP, portable, upright chest radiograph is compared to study dated 07/15/2018 and correlated with chest CT dated 04/20/2017. The examination is degraded by portable technique and patient rotation. The heart is enlarged and there is evidence of previous cardiac valve surgery. The pulmonary vasculature is noncongested. There is atherosclerotic calcification of the thoracic aorta. Advanced emphysema and chronic interstitial thickening are similar to previous. There is a small to moderate left pleural effusion with associated left basilar consolidation. This has not significantly changed from 07/15/2018. The right lung appears clear. No pneumothorax is seen. The skeletal structures are osteopenic. The bony thorax is grossly intact. Atherosclerotic calcification is noted in the carotid bulbs. IMPRESSION: 1. Cardiomegaly and advanced emphysema. There is no radiographic evidence of congestive failure. 2. A small to moderate left pleural effusion with associated left basilar consolidation has not significantly changed from 07/15/2018. Electronically signed by: Dejon Rodriguez M.D. 07/23/2018 5:23 PM Dictated: 07/23/18 1721 Transcribed: 07/23/18 1721 Medications Administered Home Medications Medication Instructions Recorded Confirmed apixaban [Eliquis] 2.5 mg PO BID 07/23/18 07/23/18 aspirin [Aspir-81] 81 mg PO DAILY 07/23/18 07/23/18 digoxin [Digox] 125 mcg PO QPM 07/23/18 07/23/18 fluocinolone acetonide oil 1 dose OTB UD PRN 07/23/18 07/23/18 furosemide [Lasix] 80 mg PO DAILY 07/23/18 07/23/18 ipratropium bromide 2 spray INTRANASAL TID PRN 07/23/18 07/23/18 ipratropium-albuterol [Combivent 1 puff INHALATION TID 07/23/18 07/23/18 Respimat] lactobacillus combination no.4 0 mmu cells PO DAILY 07/23/18 07/23/18 [Probiotic] levalbuterol HCl [Xopenex] 1 dose INHALATION TID PRN 07/23/18 07/23/18 levothyroxine 75 mcg PO DAILY 07/23/18 07/23/18 metoprolol tartrate [Lopressor] 50 mg PO Q12 07/23/18 07/23/18 multivitamin 1 tab PO DAILY 07/23/18 07/23/18 potassium chloride 20 meq PO DAILY 07/23/18 07/23/18 prednisone 5 mg PO DAILY 07/23/18 07/23/18 travoprost [Travatan Z] 1 drp OPB HS 07/23/18 07/23/18 Code Status & VTE Plan VTE Prophylaxis Plan VTE Prophylaxis will be ordered: Yes (1) UTI (urinary tract infection) Hematuria presence: without hematuria Urinary tract infection type: site unspecified Qualified Code(s): N39.0 - Urinary tract infection, site not specified
[2018-07-23] MEDS ORDERED: ACETAMINOPHEN 325 MG TAB PO PRN (22:25)
[2018-07-23] MEDS ORDERED: ALUMINUM/MAGNESIUM SUSP 30 ML UDC PO PRN (22:25)
[2018-07-23] MEDS ORDERED: ONDANSETRON INJ 2 MG/ML 2 ML VIAL IV PRN (22:25)
[2018-07-23] MEDS ORDERED: MAGNESIUM HYDROXIDE SUSP 30 ML UDC PO PRN (22:25)
[2018-07-23] MEDS ORDERED: ACETAMINOPHEN 1000 MG/100 ML IV IV PRN (22:25)
--- NOTE | 2018-07-23 23:14 | Emergency Department Note ---
Entered by Any Santoyo acting as a scribe for History of Present Illness General Chief complaint: Shortness of Breath/Dyspnea Stated complaint: SOB Time Seen by Provider: 07/23/18 16:54 Source: patient and other (home care nurse) Mode of arrival: EMS Limitations: patient cooperation History of Present Illness Provider complaint: shortness of breath Onset (ago): week(s) 1 Location: chest Pain Consistency: + other (persistent) Maximum Pain Intensity: 10 Current Pain Intensity: 6 Quality: + other (shortness of breath) Associated symptoms: + other (falls) Treatments prior to arrival: other (Albuterol) The patient is an 88 year old female who presents to the Emergency Room with complaints of a worsening shortness of breath that began a week ago. The patient's home care nurse reports that the patient has a suspected pneumonia. She also states that she has a history of COPD and is on 4 L of nasal cannula oxygen at baseline. The patient notes that she has had 3 recent falls and reports that the last one was yesterday. No other exacerbating or remitting factors. Home Medications Home Medications Medication Instructions Recorded Confirmed Type apixaban [Eliquis] 2.5 mg PO BID 07/23/18 07/23/18 History aspirin [Aspir-81] 81 mg PO DAILY 07/23/18 07/23/18 History digoxin [Digox] 125 mcg PO QPM 07/23/18 07/23/18 History fluocinolone acetonide oil 1 dose OTB UD PRN 07/23/18 07/23/18 History furosemide [Lasix] 80 mg PO DAILY 07/23/18 07/23/18 History ipratropium bromide 2 spray INTRANASAL TID PRN 07/23/18 07/23/18 History ipratropium-albuterol [Combivent 1 puff INHALATION TID 07/23/18 07/23/18 History Respimat] lactobacillus combination no.4 0 mmu cells PO DAILY 07/23/18 07/23/18 History [Probiotic] levalbuterol HCl [Xopenex] 1 dose INHALATION TID PRN 07/23/18 07/23/18 History levothyroxine 75 mcg PO DAILY 07/23/18 07/23/18 History metoprolol tartrate [Lopressor] 50 mg PO Q12 07/23/18 07/23/18 History multivitamin 1 tab PO DAILY 07/23/18 07/23/18 History potassium chloride 20 meq PO DAILY 07/23/18 07/23/18 History prednisone 5 mg PO DAILY 07/23/18 07/23/18 History travoprost [Travatan Z] 1 drp OPB HS 07/23/18 07/23/18 History Allergies Allergy/AdvReac Type Severity Reaction Status Date / Time clonidine Allergy Mild SHORTNESS Verified 10/02/17 14:53 OF BREATH amlodipine Allergy Unknown rash,dizzy/balance Verified 07/23/18 19:40 off Iodinated Contrast- Oral and Allergy Unknown "IT JUST Verified 10/02/17 14:53 IV Dye AFFECTS ME AND I CAN'T EXPLAIN IT" latex Allergy Unknown RASH Verified 10/02/17 14:53 Penicillins Allergy Unknown UNKNOWN Verified 10/02/17 14:53 Sulfa (Sulfonamide Allergy Unknown "SWELLING Verified 10/02/17 14:53 Antibiotics) IN MOUTH AND DRIED OUT" atenolol Allergy Rash/dizzy Verified 07/23/18 19:40 clarithromycin Allergy Rash Verified 07/23/18 19:40 gatifloxacin Allergy rash/dizzy/ Verified 07/23/18 19:40 lightheaded losartan Allergy rash/dizzy Verified 07/23/18 19:40 Past Med/Surg History Medical History COPD (chronic obstructive pulmonary disease) (Chronic) Anxiety (Chronic) Atrial fibrillation with RVR (Chronic) Social History Preferred Language: Indian Communication Ability: Effective 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 ) Physical Exam Vital Signs Vital Signs - 24 hr 07/23/18 16:50 07/23/18 16:56 07/23/18 17:25 Temperature 36.0 C L Temperature Source Axillary Sepsis Recent Fever Within 48 Hours No Sepsis Action Taken by Nursing No Action Required Pulse Rate 75 Pulse Rate [Right Finger] Pulse Rate from SpO2 Sensor Pulse Rhythm [Right Finger] Pulse Strength [Right Finger] Respiratory Rate 36 H Respiratory Effort / Characteristics Accessory Muscle Use Labored Short of Breath Respiratory Depth Shallow Respiratory Pattern Tachypnea Blood Pressure 196/86 H Blood Pressure [Right Arm] Blood Pressure Mean 122 Blood Pressure Mean [Right Arm] Blood Pressure Position [Right Arm] Pulse Oximetry 86 L 89 L 93 Oxygen Delivery Method Nasal Cannula Nasal Cannula Nasal Cannula Oxygen Flow Rate 4 6 6 07/23/18 17:32 07/23/18 17:39 07/23/18 17:40 Temperature Temperature Source Sepsis Recent Fever Within 48 Hours Sepsis Action Taken by Nursing Pulse Rate 60 66 70 Pulse Rate [Right Finger] Pulse Rate from SpO2 Sensor 63 Pulse Rhythm [Right Finger] Pulse Strength [Right Finger] Respiratory Rate 30 H 25 H 27 H Respiratory Effort / Characteristics Respiratory Depth Respiratory Pattern Blood Pressure 179/83 H Blood Pressure [Right Arm] Blood Pressure Mean 115 Blood Pressure Mean [Right Arm] Blood Pressure Position [Right Arm] Pulse Oximetry 95 Oxygen Delivery Method Nebulizer Oxygen Flow Rate 07/23/18 17:50 07/23/18 17:51 07/23/18 18:00 Temperature Temperature Source Sepsis Recent Fever Within 48 Hours Sepsis Action Taken by Nursing Pulse Rate 65 70 Pulse Rate [Right Finger] 67 Pulse Rate from SpO2 Sensor 66 76 Pulse Rhythm [Right Finger] Pulse Strength [Right Finger] Respiratory Rate 24 22 19 Respiratory Effort / Characteristics Non-Labored Spontaneous Respiratory Depth Respiratory Pattern Blood Pressure Blood Pressure [Right Arm] Blood Pressure Mean Blood Pressure Mean [Right Arm] Blood Pressure Position [Right Arm] Pulse Oximetry 96 94 94 Oxygen Delivery Method Nebulizer Nasal Cannula Nebulizer Oxygen Flow Rate 4 07/23/18 18:10 07/23/18 18:20 07/23/18 18:30 Temperature Temperature Source Sepsis Recent Fever Within 48 Hours Sepsis Action Taken by Nursing Pulse Rate 66 66 71 Pulse Rate [Right Finger] Pulse Rate from SpO2 Sensor 60 66 73 Pulse Rhythm [Right Finger] Pulse Strength [Right Finger] Respiratory Rate 30 H 23 35 H Respiratory Effort / Characteristics Respiratory Depth Respiratory Pattern Blood Pressure 208/113 H Blood Pressure [Right Arm] Blood Pressure Mean 144 Blood Pressure Mean [Right Arm] Blood Pressure Position [Right Arm] Pulse Oximetry 99 99 98 Oxygen Delivery Method Oxygen Flow Rate 07/23/18 18:31 07/23/18 18:40 07/23/18 18:50 Temperature Temperature Source Sepsis Recent Fever Within 48 Hours Sepsis Action Taken by Nursing Pulse Rate 66 74 74 Pulse Rate [Right Finger] Pulse Rate from SpO2 Sensor 65 70 77 Pulse Rhythm [Right Finger] Pulse Strength [Right Finger] Respiratory Rate 29 H 31 H 26 H Respiratory Effort / Characteristics Respiratory Depth Respiratory Pattern Blood Pressure Blood Pressure [Right Arm] Blood Pressure Mean Blood Pressure Mean [Right Arm] Blood Pressure Position [Right Arm] Pulse Oximetry 99 99 99 Oxygen Delivery Method Oxygen Flow Rate 07/23/18 19:00 07/23/18 19:01 07/23/18 19:30 Temperature Temperature Source Sepsis Recent Fever Within 48 Hours Sepsis Action Taken by Nursing Pulse Rate 70 79 85 Pulse Rate [Right Finger] Pulse Rate from SpO2 Sensor 77 76 82 Pulse Rhythm [Right Finger] Pulse Strength [Right Finger] Respiratory Rate 22 34 H 24 Respiratory Effort / Characteristics Respiratory Depth Respiratory Pattern Blood Pressure 214/140 H 197/103 H Blood Pressure [Right Arm] Blood Pressure Mean 164 134 Blood Pressure Mean [Right Arm] Blood Pressure Position [Right Arm] Pulse Oximetry 98 99 99 Oxygen Delivery Method Nasal Cannula Nasal Cannula Nasal Cannula Oxygen Flow Rate 6 6 6 07/23/18 20:00 07/23/18 20:30 07/23/18 20:32 Temperature Temperature Source Sepsis Recent Fever Within 48 Hours Sepsis Action Taken by Nursing Pulse Rate 82 85 81 Pulse Rate [Right Finger] Pulse Rate from SpO2 Sensor 90 92 H 78 Pulse Rhythm [Right Finger] Pulse Strength [Right Finger] Respiratory Rate 21 23 33 H Respiratory Effort / Characteristics Respiratory Depth Respiratory Pattern Blood Pressure 175/96 H 192/86 H Blood Pressure [Right Arm] Blood Pressure Mean 122 121 Blood Pressure Mean [Right Arm] Blood Pressure Position [Right Arm] Pulse Oximetry 88 L 81 L 80 L Oxygen Delivery Method Nasal Cannula Nasal Cannula Nasal Cannula Oxygen Flow Rate 6 6 6 07/23/18 22:03 07/23/18 22:24 Temperature 36.4 C L Temperature Source Axillary Sepsis Recent Fever Within 48 Hours Sepsis Action Taken by Nursing Pulse Rate 83 Pulse Rate [Right Finger] 83 Pulse Rate from SpO2 Sensor Pulse Rhythm [Right Finger] Regular Pulse Strength [Right Finger] Normal Respiratory Rate 24 22 Respiratory Effort / Characteristics Non-Labored Respiratory Depth Normal Respiratory Pattern Regular Blood Pressure 195/90 H Blood Pressure [Right Arm] 185/90 H Blood Pressure Mean Blood Pressure Mean [Right Arm] 121 Blood Pressure Position [Right Arm] Lying Pulse Oximetry 95 Oxygen Delivery Method Oxymask Oxymask Oxygen Flow Rate 5 5 GENERAL: Sitting up in bed, chronically ill appearing, dyspneic with conversation, on6 L nasal cannula oxygen. EYE EXAM: normal conjunctiva. OROPHARYNX: no exudate, no erythema, lips, buccal mucosa, and tongue normal and mucous membranes are moist NECK: supple, no nuchal rigidity, no adenopathy, non-tender LUNGS: Wheezing at bilateral bases. Normal chest wall mechanics HEART: no murmurs, S1 normal and S2 normal ABDOMEN: abdomen soft, non-tender, normo-active bowel, sounds, no masses, no rebound or guarding. BACK: Back is symmetrical on inspection and there is no deformity, no midline tenderness, no CVA tenderness. SKIN: no rashes and no bruising UPPER EXTREMITIES: upper extremities are grossly normal. LOWER EXTREMITIES: No pitting edema. Calves are equal bilaterally. NEURO EXAM: Normal sensorium, cranial nerves II-XII grossly intact, normal speech, no gross weakness of arms, no gross weakness of legs. Course ED COURSE: Vital signs were reviewed and are within normal limits. The patients medical record was reviewed The above diagnostic studies were performed and reviewed. ED treatments and interventions as stated above. 1724: The patient was evaluated in room D3A. A complete history and physical examination was performed. 1905: Upon reevaluation, the patient appeared to have improvement of her symptoms.. I discussed my findings with the patient and she understands and agrees with the treatment plan. Based on the patients age, coexisting illnesses, exam and lab findings the decision to treat as an inpatient was made. The patient remained stable while under my care. The patient will be evaluated for further management. Administered Medications Discontinued Medications Albuterol (Duoneb) 3 ml NEB NOW STA Stop: 07/23/18 17:13 Last Admin: 07/23/18 17:22 Dose: 3 ml Documented by: [id number] Albuterol (Duoneb) 3 ml NEB Q1H RAMILA Stop: 08/22/18 17:44 Last Admin: 07/23/18 21:22 Dose: Not Given Documented by: [id number] Admin: 07/23/18 18:51 Dose: Not Given Documented by: [id number] Admin: 07/23/18 18:51 Dose: Not Given Documented by: [id number] Albuterol (Duoneb) 12 ml NEB ONE ONE Stop: 07/23/18 17:36 Last Admin: 07/23/18 17:44 Dose: 12 ml Documented by: [id number] Levofloxacin/Dextrose (Levaquin/D5w) 750 mg in 150 mls @ 100 mls/hr IV ONE ONE Stop: 07/23/18 20:37 Last Admin: 07/23/18 20:07 Dose: Not Given Documented by: [id number] Ceftriaxone Sodium (Rocephin) 1,000 mg in 50 mls @ 100 mls/hr IV NOW STA Stop: 07/23/18 20:24 Last Infusion: 07/23/18 21:22 Dose: 0 mls/hr Documented by: [id number] Admin: 07/23/18 20:36 Dose: 100 mls/hr Documented by: [id number] Medical Decision Making Differential Diagnosis Differential diagnoses includes but is not limited to pneumonia, bronchitis, CO PD/Asthma exacerbation, pneumothorax, pulmonary embolism, congestive heart failure, and acute coronary syndrome. Medical Records Attestation: I reviewed the patient's medical records. Home Medications Current Medication List: was personally reviewed by me Laboratory Data Attestation: I reviewed the patient's lab results. Result diagrams: 07/23/18 17:44 07/23/18 17:44 Lab Results 07/23/18 07/23/18 07/23/18 Range/Units 17:44 17:44 17:44 WBC 11.83 H (4.8-10.8) K/uL RBC 5.06 (4.2-5.4) M/uL Hgb 16.4 H (12.0-16.0) g/dL Hct 48.5 H (37-47) % MCV 95.8 (80-100) fL MCH 32.4 (25-34) pg MCHC 33.8 (32-36) g/dL RDW Std Deviation 51.8 H (36.4-46.3) fL RDW Coeff of Krish 14.7 H (11.5-14.5) % Plt Count 224 (130-400) K/uL MPV 11.0 H (7.4-10.4) fL Immature Gran % (Auto) 0.3 % Neut % (Auto) 83.8 % Lymph % (Auto) 5.5 % [place] % (Auto) 8.5 % Eos % (Auto) 1.4 % Baso % (Auto) 0.5 % Immature Gran # (Auto) 0.03 H (0.00-0.02) K/uL Neut # (Auto) 9.92 H (1.4-6.5) K/uL Lymph # (Auto) 0.65 L (1.2-3.4) K/uL [place] # (Auto) 1.01 H (0.11-0.59) K/uL Eos # (Auto) 0.16 (0-0.5) K/uL Baso # (Auto) 0.06 (0-0.2) K/uL PT 14.2 H (9.0-12.0) Seconds INR 1.4 H (0.9-1.1) APTT 28.3 (21.0-31.0) Seconds PTT Ratio 1.0 VBG pH (7.36-7.41) VBG pCO2 (38-50) mmHg VBG pO2 mmHg VBG HCO3 mmol/L VBG O2 Saturation % VBG Base Excess mEq/L Barometric Pressure mm/Hg Sodium 137 (136-145) mmol/L Potassium 3.5 (3.5-5.1) mmol/L Chloride 99 (98-107) mmol/L Carbon Dioxide 33 H (21-32) mmol/L Anion Gap 5.0 (3-11) BUN 23 H (7-18) mg/dl Creatinine 0.84 (0.6-1.2) mg/dl Est Cr Clr Drug Dosing 33.9 ml/min Est GFR ( Amer) 72.4 Est GFR (Non-Af Amer) 62.5 BUN/Creatinine Ratio 26.9 H (10-20) Glucose 164 H (70-99) mg/dl Calcium 8.6 (8.5-10.1) mg/dl Total Bilirubin 1.1 H (0.2-1) mg/dl AST 29 (15-37) U/L ALT 25 (12-78) U/L Alkaline Phosphatase 170 H (45-117) U/L Troponin I 0.047 H* (0-0.045) ng/ml Total Protein 6.4 (6.4-8.2) gm/dl Albumin 3.0 L (3.4-5.0) gm/dl Globulin 3.4 (2.5-4.0) gm/dl Albumin/Globulin Ratio 0.9 (0.9-2) Urine Color Urine Appearance (Clear) Urine pH (4.5-7.5) Ur Specific [place] (1.000-1.030) Urine Protein (Negative) Urine Glucose (UA) (Negative) Urine Ketones (Negative) Urine Blood (Negative) Urine Nitrite (Negative) Urine Bilirubin (Negative) Urine Urobilinogen (Negative) Ur Leukocyte Esterase (Negative) Urine WBC (Auto) (0-5) /hpf Urine RBC (Auto) (0-4) /hpf U Hyaline Cast (Auto) (0-5) /lpf U Epithel Cells (Auto) (0-5) /lpf Urine Bacteria (Auto) (Negative) 07/23/18 07/23/18 Range/Units 17:44 18:05 WBC (4.8-10.8) K/uL RBC (4.2-5.4) M/uL Hgb (12.0-16.0) g/dL Hct (37-47) % MCV (80-100) fL MCH (25-34) pg MCHC (32-36) g/dL RDW Std Deviation (36.4-46.3) fL RDW Coeff of Krish (11.5-14.5) % Plt Count (130-400) K/uL MPV (7.4-10.4) fL Immature Gran % (Auto) % Neut % (Auto) % Lymph % (Auto) % [place] % (Auto) % Eos % (Auto) % Baso % (Auto) % Immature Gran # (Auto) (0.00-0.02) K/uL Neut # (Auto) (1.4-6.5) K/uL Lymph # (Auto) (1.2-3.4) K/uL [place] # (Auto) (0.11-0.59) K/uL Eos # (Auto) (0-0.5) K/uL Baso # (Auto) (0-0.2) K/uL PT (9.0-12.0) Seconds INR (0.9-1.1) APTT (21.0-31.0) Seconds PTT Ratio VBG pH 7.43 H (7.36-7.41) VBG pCO2 53 H (38-50) mmHg VBG pO2 51 mmHg VBG HCO3 35 mmol/L VBG O2 Saturation 84.7 % VBG Base Excess 8.3 mEq/L Barometric Pressure 730.8 mm/Hg Sodium (136-145) mmol/L Potassium (3.5-5.1) mmol/L Chloride (98-107) mmol/L Carbon Dioxide (21-32) mmol/L Anion Gap (3-11) BUN (7-18) mg/dl Creatinine (0.6-1.2) mg/dl Est Cr Clr Drug Dosing ml/min Est GFR ( Amer) Est GFR (Non-Af Amer) BUN/Creatinine Ratio (10-20) Glucose (70-99) mg/dl Calcium (8.5-10.1) mg/dl Total Bilirubin (0.2-1) mg/dl AST (15-37) U/L ALT (12-78) U/L Alkaline Phosphatase (45-117) U/L Troponin I (0-0.045) ng/ml Total Protein (6.4-8.2) gm/dl Albumin (3.4-5.0) gm/dl Globulin (2.5-4.0) gm/dl Albumin/Globulin Ratio (0.9-2) Urine Color Yellow Urine Appearance Clear (Clear) Urine pH 7.5 (4.5-7.5) Ur Specific [place] 1.011 (1.000-1.030) Urine Protein 2+ H (Negative) Urine Glucose (UA) Negative (Negative) Urine Ketones Negative (Negative) Urine Blood 1+ H (Negative) Urine Nitrite Negative (Negative) Urine Bilirubin Negative (Negative) Urine Urobilinogen Negative (Negative) Ur Leukocyte Esterase Trace H (Negative) Urine WBC (Auto) 10-30 H (0-5) /hpf Urine RBC (Auto) 5-10 H (0-4) /hpf U Hyaline Cast (Auto) 1-5 (0-5) /lpf U Epithel Cells (Auto) 0-5 (0-5) /lpf Urine Bacteria (Auto) Negative (Negative) Imaging Data Radiologist's Impression: Radiology results as stated below per my review and the radiologist's interpretation: SINGLE VIEW CHEST CLINICAL HISTORY: Dyspnea. FINDINGS: An AP, portable, upright chest radiograph is compared to study dated 07/15/2018 and correlated with chest CT dated 04/20/2017. The examination is degraded by portable technique and patient rotation. The heart is enlarged and there is evidence of previous cardiac valve surgery. The pulmonary vasculature is noncongested. There is atherosclerotic calcification of the thoracic aorta. Advanced emphysema and chronic interstitial thickening are similar to previous. There is a small to moderate left pleural effusion with associated left basilar consolidation. This has not significantly changed from 07/15/2018. The right lung appears clear. No pneumothorax is seen. The skeletal structures are osteopenic. The bony thorax is grossly intact. Atherosclerotic calcification is noted in the carotid bulbs. IMPRESSION: 1. Cardiomegaly and advanced emphysema. There is no radiographic evidence of con gestive failure. 2. A small to moderate left pleural effusion with associated left basilar consolidation has not significantly changed from 07/15/2018. Electronically signed by: Dejon Rodriguez M.D. 07/23/2018 5:23 PM ECG Data Attestation: I personally reviewed and interpreted this ECG as follows: Indication: SOB/dyspnea Rate (beats per minute): 71 Rhythm: atrial fibrillation Findings: + other (slight elevations in septal), + LBBB, + ST depression (in high lateral and lateral) and + left axis deviation Blood Pressure Blood Pressure Findings: Elevated blood pressure Blood Pressure Disposition: further management by hospitalist MICHELLE Narrative Patient is an 88-year-old female in the emergency who presents the ER for shortness of breath which is been present for the past week. She is currently on 4 L nasal cannula and this has been titrated up to 6 L and she is now 88%. Vitals show that the patient was hypertensive and hypoxic. Initially she was seen by the resident and declines everything being done with the exception of nebulizer treatment. I updated her bedside and noted that we do need to obtain the blood work she was eventually agreeable to obtain this and the chest x-ray. She declined any steroids. Labs show no significant leukocytosis or anemia. INR was 1.4. VBG with pH of 7.43 and a CO2 of 53. BMP was fairly unremarkable. Troponin was slightly elevated at 0.047 but lower than where she has been befor e. UA had white cells and esterase. She is given/ordered IV Rocephin. Patient was updated bedside by the resident. She is agreeable to admission. She was discussed with the hospitalist. Dope Weigh Operator does note that they want to discuss hospice and the son is coming tomorrow as the patient continuing does not want anything done. Impression & Plan Hypoxia, Elevated troponin, Hypercarbia, UTI (urinary tract infection) Discharge Plan Visit Data *Final* Discharge Date/Time: 07/23/18 22:03 Chief Complaint: Shortness of Breath/Dyspnea Stated Complaint: SOB ED Provider: Nas Dewitt ED Midlevel Provider: Kailey Brumfield Discharge Problem: Hypoxia, Elevated troponin, Hypercarbia, UTI (urinary tract infection) Patient Disposition: Admitted As Inpatient Discharge Instructions Interventions: ED Discharge Assessment Last Done: 07/23/18 22:03 Discharge Problem: UTI (urinary tract infection) Qualifiers: Urinary tract infection type: site unspecified Hematuria presence: without hematuria Qualified Code(s): N39.0 - Urinary tract infection, site not specified The scribe's documentation has been prepared under my direction and personally reviewed by me in its entirety. I confirm that the note above accurately reflects all work, treatment, procedures, and medical decision making performed by me.
[2018-07-24] MEDS ORDERED: METOPROLOL TARTRATE 50 MG TAB PO ONE
[2018-07-24] MEDS: APIXABAN 2.5 MG TAB PO SCH ×3 (00:10→20:21)
[2018-07-24] MEDS ORDERED: ALBUMIN 25% 50 ML with FUROSEMIDE 40 MG IV ONE (01:00)
[2018-07-24] MEDS: TRAVOPROST Z 0.004% OPH SOLN 2.5 ML BTL OPB SCH ×2 (02:00→20:21)
[2018-07-24] MEDS: LEVOTHYROXINE SODIUM 75 MCG TABLET PO SCH (06:06)
[2018-07-24 06:56] LABS: Basophils # (auto) 0.02 K/uL (0-0.2); Basophils % (auto) 0.2 %; Eosinophils # (auto) 0.25 K/uL (0-0.5); Eosinophils % (auto) 2.6 %; Hematocrit (blood only) 48.3 % (37-47); Hemoglobin 15.7 g/dL (12.0-16.0); Immature Granulocytes # (auto) 0.02 K/uL (0.00-0.02); Immature Granulocytes % (auto) 0.2 %; Lymphocytes # (auto) 1.13 K/uL (1.2-3.4); Lymphocytes % (auto) 11.9 %; Mean Corpuscular Hgb Conc 32.5 g/dL (32-36); Mean Corpuscular Volume 96.6 fL (80-100); Mean Platelet Volume 11.7 fL (7.4-10.4); Monocytes # (auto) 0.96 K/uL (0.11-0.59); Monocytes % (auto) 10.1 %; Neutrophils # (auto) 7.09 K/uL (1.4-6.5); Platelet Count 187 K/uL (130-400); RDW Coefficient of Variation 14.7 % (11.5-14.5); RDW Standard Deviation 51.9 fL (36.4-46.3); White Blood Count 9.47 K/uL (4.8-10.8)
[2018-07-24 07:11] LABS: INR 1.4 (0.9-1.1); Partial Thromboplastin Ratio 1.1; Partial Thromboplastin Time 28.8 Seconds (21.0-31.0); Prothrombin Time 13.6 Seconds (9.0-12.0)
[2018-07-24] MEDS: BUDESONIDE 0.5 MG/2 ML VIAL (PULMICORT) NEB SCH ×2 (07:12→19:19)
[2018-07-24 07:34] LABS: Albumin Level 2.9 gm/dl (3.4-5.0); BUN Creatinine Ratio 25.6 (10-20); Calcium 8.5 mg/dl (8.5-10.1); Creatinine Clr Calc Pharmacy 39.8 ml/min; Est GFR (African American) 88.8; Est GFR (Non-African American) 76.6; Potassium 3.1 mmol/L (3.5-5.1)
[2018-07-24 07:37] LABS: Bilirubin,Total 1.1 mg/dl (0.2-1); Globulin 2.9 gm/dl (2.5-4.0); Total Protein 5.9 gm/dl (6.4-8.2)
[2018-07-24] MEDS ORDERED: ALBUT/IPRATROP 3MG/0.5MG NEB 3 ML VIAL NEB PRN (07:54)
[2018-07-24] MEDS ORDERED: POTASSIUM CHLORIDE 20 MEQ TABCR PO STA (07:58)
[2018-07-24] MEDS: IPRATROPIUM BROMIDE/ALBUTEROL respimat INH INH SCH ×3 (09:00→20:20)
[2018-07-24] MEDS: METOPROLOL TARTRATE 50 MG TAB PO SCH ×2 (09:05→20:21)
[2018-07-24] MEDS: ASPIRIN 81 MG ECTAB PO SCH (09:05)
[2018-07-24] MEDS: predniSONE 5 MG TAB PO SCH (09:06)
[2018-07-24] MEDS: FUROSEMIDE 80 MG TAB PO SCH (09:06)
[2018-07-24] MEDS: POTASSIUM CHLORIDE PWD 20 MEQ PACK PO SCH (09:06)
[2018-07-24] MEDS: MULTIVITAMIN TAB PO SCH (10:37)
[2018-07-24] MEDS ORDERED: SODIUM CHLORIDE 0.65% NA SOLN 45 ML (OCEAN) ONE (10:49)
--- NOTE | 2018-07-24 11:52 | Family Medicine Progress Note ---
Date of Service July 24, 2018 Assessment & Plan (1) Acute respiratory failure with hypoxia: Acute respiratory failure with hypoxia Differential includes acute exacerbation of CHF vs. acute COPD exacerbation vs. acute on chronic left pleural effusion CXR performed showed cardiomegaly and advanced emphysema with no radiographic evidence of congestive failure and small to moderate left pleural effusion with associated left basilar consolidation that has not significantly changed from study on 07/15/18. Imaging supports acute COPD exacerbation. Continue with Xopenex 1.25mg QID PRN Continue with Pred 5mg PO Desaturates when talking on NC this morning into the 80s but corrects with deep breaths, was on NC for breakfast, and has been on Oxymask 5L with pulse ox 96% on floor - On Rocephin 1gm for potential pulmonary infections process, -procalcitonin ordered for suspicion of infectious process. No fevers but is on chronic pred which might depress inflammatory response. (2) Recurrent left pleural effusion: Received albumin 25 g with furosemide 40 mg IV x1. Patient's baseline oxygen is 4 L at home, but had been increased to 6 L in the ED[address] Dr. Shoemaker consulted, whom she follow with in outpatient office regarding the pleural effusion. Will assess response to albumin furosemide (3) Acute exacerbation of CHF (congestive heart failure): As above. (4) Elevated troponin: Trops elevated 0.047 -> 0.060 -suspect from demand ischemia from hypoxia Continue apixaban 2.5 mg p.o. twice daily, aspirin 81 mg daily, digoxin 1.5 mcg p.o. every afternoon, metoprolol tartrate 50 mg p.o. every 12 hours and potassium chloride 20 mg once p.o. daily. cardiology consulted. (5) COPD (chronic obstructive pulmonary disease): COPD exacerbation- Xopenex nebulizers to 4 times daily. Budesonide 0.5 mg Neb BID scheduled Patient is concerned about side effects of prednisone, was on chronically and trying to taper off, was on prednisone 5 mg daily, and will continue. Does not want IV pred. (6) UTI (urinary tract infection): Placed on ceftriaxone 1 g IV daily to cover urine and pulmonary issues. (7) Recurrent falls: Multifactorial generalized deconditioning, CHF exacerbation, COPD exacerbation, hypoxia, failure to thrive Her physical activity significantly limited by her oxygenation status. will monitor and reassess for PT consultation in further Supervising Physician Co-Signing Physician Notes Patient seen and examined with the resident. Agree with history, physical exam, assessment and plan with the following updates/corrections: 88yo F w/ hx of CHF and COPD who presents with shortness of breath. 1) Acute on chronic diastolic CHF (acute on chronic HFpEF) - Given Lasix and albumin by admitting physician; now on her home dosing of 80mg PO daily. Will monitor weights and I&Os. She does not have any weights documented as outpatient, because she has refused in the office. 2) End-stage COPD - Severe, chronic hypoxemic respiratory failure from COPD. O2 dependant at 4L NC. Will treat with ceftriaxone and continue her home prednisone as she refused increased dosage in the ED. Continue inhalers. Consider pulm if no improvement in 1-2 days. 3) Demand ischemia in setting of acute on chronic respiratory failure, COPD exacerbation and acute diastolic CHF. - Troponins low and stable; no major concerns at present for acute thrombotic event. Subjective Caveat History Limited by: Patient is a vague historian and is uncooperative. Anisa reports no change in respiratory status since admission. She is a vague historian and hard of hearing. She is requesting Kip Bharathi to manage her care and is uncooperative with questioning. Physical Exam Vital Signs (Past 24 Hours): Last Vital Signs Temp 36.6 C 07/24/18 07:08 Pulse 72 07/24/18 07:12 Resp 16 07/24/18 07:12 BP 194/87 H 07/24/18 07:08 Pulse Ox 96 07/24/18 07:12 Constitutional: + thin and + frail appearing Eyes: + anicteric sclerae and EOM intact bilaterally Neck: normal visual inspection Respiratory: + uses accessory muscles and + prolonged expiratory phase; + not able to speak in complete sentence Auscultation: + diminished lung sounds and + wheezes (inspiratory diffuse) Cardiovascular: Rate/Rhythm: regular rate; + abnormal rhythm (irregularly irregular) Extremities: no pedal edema Gastrointestinal (Abdomen): Percussion/Palpation: abdomen soft; abdomen nontender Musculoskeletal: Head/Neck/Chest: normocephalic and head atraumatic Skin: diffuse well healing ecchymosis on bilateral legs, with bandage on left leg from skin tear, skin on lower extremities are tender to palpation, apprehensive with palpation Neurologic: moves all extremities and awake Psychiatric: Orientation: alert and oriented x 3 Mood: + anxious mood Results & Data Laboratory Results Laboratory Results - last 24 hr 07/23/18 07/23/18 07/23/18 17:44 17:44 17:44 WBC 11.83 H RBC 5.06 Hgb 16.4 H Hct 48.5 H MCV 95.8 MCH 32.4 MCHC 33.8 RDW Std Deviation 51.8 H RDW Coeff of Krish 14.7 H Plt Count 224 MPV 11.0 H Immature Gran % (Auto) 0.3 Neut % (Auto) 83.8 Lymph % (Auto) 5.5 [place] % (Auto) 8.5 Eos % (Auto) 1.4 Baso % (Auto) 0.5 Immature Gran # (Auto) 0.03 H Neut # (Auto) 9.92 H Lymph # (Auto) 0.65 L [place] # (Auto) 1.01 H Eos # (Auto) 0.16 Baso # (Auto) 0.06 PT 14.2 H INR 1.4 H APTT 28.3 PTT Ratio 1.0 VBG pH VBG pCO2 VBG pO2 VBG HCO3 VBG O2 Saturation VBG Base Excess Barometric Pressure Sodium 137 Potassium 3.5 Chloride 99 Carbon Dioxide 33 H Anion Gap 5.0 BUN 23 H Creatinine 0.84 Est Cr Clr Drug Dosing 33.9 Est GFR ( Amer) 72.4 Est GFR (Non-Af Amer) 62.5 BUN/Creatinine Ratio 26.9 H Glucose 164 H Calcium 8.6 Total Bilirubin 1.1 H AST 29 ALT 25 Alkaline Phosphatase 170 H Troponin I 0.047 H* Total Protein 6.4 Albumin 3.0 L Globulin 3.4 Albumin/Globulin Ratio 0.9 Urine Color Urine Appearance Urine pH Ur Specific [place] Urine Protein Urine Glucose (UA) Urine Ketones Urine Blood Urine Nitrite Urine Bilirubin Urine Urobilinogen Ur Leukocyte Esterase Urine WBC (Auto) Urine RBC (Auto) U Hyaline Cast (Auto) U Epithel Cells (Auto) Urine Bacteria (Auto) 07/23/18 07/23/18 07/23/18 17:44 18:05 22:57 WBC RBC Hgb Hct MCV MCH MCHC RDW Std Deviation RDW Coeff of Krish Plt Count MPV Immature Gran % (Auto) Neut % (Auto) Lymph % (Auto) [place] % (Auto) Eos % (Auto) Baso % (Auto) Immature Gran # (Auto) Neut # (Auto) Lymph # (Auto) [place] # (Auto) Eos # (Auto) Baso # (Auto) PT INR APTT PTT Ratio VBG pH 7.43 H VBG pCO2 53 H VBG pO2 51 VBG HCO3 35 VBG O2 Saturation 84.7 VBG Base Excess 8.3 Barometric Pressure 730.8 Sodium Potassium Chloride Carbon Dioxide Anion Gap BUN Creatinine Est Cr Clr Drug Dosing Est GFR ( Amer) Est GFR (Non-Af Amer) BUN/Creatinine Ratio Glucose Calcium Total Bilirubin AST ALT Alkaline Phosphatase Troponin I 0.060 H* Total Protein Albumin Globulin Albumin/Globulin Ratio Urine Color Yellow Urine Appearance Clear Urine pH 7.5 Ur Specific [place] 1.011 Urine Protein 2+ H Urine Glucose (UA) Negative Urine Ketones Negative Urine Blood 1+ H Urine Nitrite Negative Urine Bilirubin Negative Urine Urobilinogen Negative Ur Leukocyte Esterase Trace H Urine WBC (Auto) 10-30 H Urine RBC (Auto) 5-10 H U Hyaline Cast (Auto) 1-5 U Epithel Cells (Auto) 0-5 Urine Bacteria (Auto) Negative 07/24/18 07/24/18 07/24/18 06:29 06:29 06:29 WBC 9.47 RBC 5.00 Hgb 15.7 Hct 48.3 H MCV 96.6 MCH 31.4 MCHC 32.5 RDW Std Deviation 51.9 H RDW Coeff of Krish 14.7 H Plt Count 187 MPV 11.7 H Immature Gran % (Auto) 0.2 Neut % (Auto) 75.0 Lymph % (Auto) 11.9 [place] % (Auto) 10.1 Eos % (Auto) 2.6 Baso % (Auto) 0.2 Immature Gran # (Auto) 0.02 Neut # (Auto) 7.09 H Lymph # (Auto) 1.13 L [place] # (Auto) 0.96 H Eos # (Auto) 0.25 Baso # (Auto) 0.02 PT 13.6 H INR 1.4 H APTT 28.8 PTT Ratio 1.1 VBG pH VBG pCO2 VBG pO2 VBG HCO3 VBG O2 Saturation VBG Base Excess Barometric Pressure Sodium 140 Potassium 3.1 L Chloride 97 L Carbon Dioxide 40 H Anion Gap 3.0 BUN 18 Creatinine 0.71 Est Cr Clr Drug Dosing 39.8 Est GFR ( Amer) 88.8 Est GFR (Non-Af Amer) 76.6 BUN/Creatinine Ratio 25.6 H Glucose 90 Calcium 8.5 Total Bilirubin 1.1 H AST 23 ALT 21 Alkaline Phosphatase 144 H Troponin I Total Protein 5.9 L Albumin 2.9 L Globulin 2.9 Albumin/Globulin Ratio 1.0 Urine Color Urine Appearance Urine pH Ur Specific [place] Urine Protein Urine Glucose (UA) Urine Ketones Urine Blood Urine Nitrite Urine Bilirubin Urine Urobilinogen Ur Leukocyte Esterase Urine WBC (Auto) Urine RBC (Auto) U Hyaline Cast (Auto) U Epithel Cells (Auto) Urine Bacteria (Auto) Medications Administered Albuterol (Combivent Respimat) 1 puffs INH TID RAMILA Stop: 08/23/18 08:59 Last Admin: 07/24/18 09:00 Dose: 1 puffs Documented by: [id number] Apixaban (Eliquis) 2.5 mg PO BID RAMILA Stop: 08/22/18 22:24 Last Admin: 07/24/18 09:06 Dose: 2.5 mg Documented by: [id number] Admin: 07/24/18 00:10 Dose: 2.5 mg Documented by: [id number] Aspirin (Ecotrin Ectab) 81 mg PO DAILY [facility] Stop: 08/23/18 08:59 Last Admin: 07/24/18 09:05 Dose: 81 mg Documented by: [id number] Budesonide (Pulmicort Respules) 0.5 mg NEB BIDR RAMILA Stop: 08/23/18 07:59 Last Admin: 07/24/18 07:12 Dose: 0.5 mg Documented by: [id number] Furosemide (Lasix) 80 mg PO DAILY RAMILA Stop: 08/23/18 08:59 Last Admin: 07/24/18 09:06 Dose: 80 mg Documented by: [id number] Levothyroxine Sodium (Synthroid) 75 mcg PO DAILYBB [facility] Stop: 08/23/18 06:29 Last Admin: 07/24/18 06:06 Dose: 75 mcg Documented by: [id number] Metoprolol Tartrate (Lopressor) 50 mg PO Q12 RAMILA Stop: 08/23/18 08:59 Last Admin: 07/24/18 09:05 Dose: 50 mg Documented by: [id number] Miscellaneous (Order Awaiting Action) 1 ea N/A QS RAMILA Stop: 08/23/18 00:00 Last Admin: 07/24/18 09:05 Dose: Not Given Documented by: [id number] Admin: 07/24/18 02:47 Dose: Not Given Documented by: [id number] Miscellaneous (Order Awaiting Action) 1 ea N/A QS RAMILA Stop: 08/23/18 00:00 Last Admin: 07/24/18 09:05 Dose: Not Given Documented by: [id number] Admin: 07/24/18 02:47 Dose: Not Given Documented by: [id number] Multivitamins (Multivitamin Tab) 1 tab PO DAILY RAMILA Stop: 08/23/18 08:59 Last Admin: 07/24/18 10:37 Dose: 1 tab Documented by: [id number] Potassium Chloride (Klor-Con Pwd) 20 meq PO DAILY RAMILA Stop: 08/23/18 08:59 Last Admin: 07/24/18 09:06 Dose: 20 meq Documented by: [id number] Prednisone (Prednisone) 5 mg PO DAILY RAMILA Stop: 08/23/18 08:59 Last Admin: 07/24/18 09:06 Dose: 5 mg Documented by: [id number] (1) UTI (urinary tract infection) Hematuria presence: without hematuria Urinary tract infection type: site unspecified Qualified Code(s): N39.0 - Urinary tract infection, site not specified
[2018-07-24] MEDS: LEVALBUTEROL HCL 1.25 MG/3 ML NEB INH PRN ×2 (13:23→19:19)
[2018-07-24] MEDS: DIGOXIN 0.125 MG TAB PO SCH (16:23)
[2018-07-24] MEDS: cefTRIAXone SODIUM 1,000 MG in DEXTROSE 5% 50 ML IV SCH (20:17)
--- NOTE | 2018-07-25 01:50 | Consultation Report ---
DATE OF CONSULTATION: 07/24/2018 REASON FOR CONSULTATION: Persistent left pleural effusion. HISTORY OF PRESENT ILLNESS: Anisa Lane is a patient that is well known to me. She is an 88-year-old female who has a persistent left pleural effusion and terrible lungs. She is on home O2. She is on steroids. The patient had acute exacerbation of her underlying chronic problem and had increasing oxygen requirements. The patient does have a history of chronic cardiac problems including coronary artery disease, atrial fibrillation and is being diuresed, which apparently is effective. She does feel better. She is followed by Dr. Sheila Hurtado as well as Dr. Lee Rucker and John Garvin PA-C from cardiology. I had been asked to evaluate her for this persistent left pleural effusion. PAST MEDICAL HISTORY: 1. History of aortic stenosis. 2. Chronic respiratory failure. 3. To's esophagus. 4. Cerebral ischemia. 5. Chronic heart failure with normal ejection fraction. 6. Chronic obstructive pulmonary disease. 7. Apparent demyelinating disorder. 8. Dyslipidemia. 9. Persistent edema of lower extremities. 10. History of cigarette smoking. 11. Glaucoma. 12. Hearing loss. 13. History of malignant melanoma. 14. Hypertension. 15. Hypothyroidism. 16. Laryngopharyngeal reflux. 17. Osteoporosis. 18. Nocturnal hypoxemia. 19. Atrial fibrillation. 20. Pulmonary hypertension. 21. Chronic dyspnea. 22. Sleep apnea. PAST SURGICAL HISTORY: 1. History of a transcatheter aortic valve replacement. 2. Cataract surgery. 3. Cardiac catheterization. SOCIAL HISTORY: The patient lives alone. She is originally from [place]. She has a history of cigarette smoking but has not smoked in many years. It is actually a bit difficult living on her own with her current advanced age and her lung problems. FAMILY MEDICAL HISTORY: Mother from cerebrovascular accident. Her father had myocardial infarction and coronary artery disease. He also has a brother with a history of stroke. She has a son who is apparently healthy. REVIEW OF SYSTEMS: The patient states that she is getting more and more short of breath. She is "Surprised, I'm still alive." She denies any visual or auditory changes, but she is quite hard of hearing and uses hearing aids. She denies any fever or chills but is quite short of breath. She denies any palpitations or chest pain. Rest of her review of systems is unremarkable, except she is complaining of urinary frequency with the Lasix. PHYSICAL EXAMINATION: GENERAL: This is a thin elderly-appearing female who is wearing hearing aids and glasses. She is awake and alert. HEENT: Sclerae are pale. Tongue is midline. Her neck is quite thin. She is using some accessory muscles. Breath sounds are decreased at the left base. HEART: She has an irregularly irregular rhythm. EXTREMITIES: She has no obvious skin breakdown. I really not see much in the way of peripheral edema now. NEUROLOGIC: She is awake and alert, although she does have some hearing acuity issues. CHEST: She does have very thin skin with ecchymosis. She has good distal pulses. ABDOMEN: Soft, nontender with good bowel sounds. ASSESSMENT AND PLAN: Persistent left pleural effusion. Her x-ray actually makes look at it was a bit larger. We have been discussing tapping this, but I think since she is in the hospital and she does appear more short of breath to me, I am going to get another film in the morning and if she has not responded to the albumin and Lasix, we will discuss a thoracentesis. She is agreeable.
[2018-07-25] MEDS: LEVALBUTEROL HCL 1.25 MG/3 ML NEB INH PRN ×4 (02:43→19:27)
[2018-07-25] MEDS: LEVOTHYROXINE SODIUM 75 MCG TABLET PO SCH (05:38)
[2018-07-25] MEDS: METOPROLOL TARTRATE 50 MG TAB PO SCH ×2 (05:38→22:04)
--- NOTE | 2018-07-25 07:05 | XRay Report ---
XR chest 1V portable CLINICAL HISTORY: 88 years-old Female presenting with right pleural effusion. TECHNIQUE: Portable upright AP view of the chest was obtained. COMPARISON: 07/23/2018. FINDINGS: Atherosclerosis of the aortic arch. Cardiac silhouette enlarged. Endovascular aortic valve replacemen t noted. Mild pulmonary vascular prominence unchanged. Interval increase in left mid to basilar lung opacity with persistent nonaeration of the left lung base secondary to the presence of a moderate lef t pleural effusion. The pleural fluid volume does not appear to be significantly changed. Right lung and pleural space clear. No pneumothorax. Osseous structures normal. Upper abdomen normal. IMPRESSION: 1. Unchanged size of the moderate left pleural effusion. No right pleural effusion. 2. Stable to slight interval increase in left basilar atelectasis. Superimposed infiltrate or edema is considered less likely. Electronically signed by: Bandar Chavez M.D. 07/25/2018 7:03 AM
[2018-07-25] MEDS: IPRATROPIUM BROMIDE/ALBUTEROL respimat INH INH SCH ×3 (07:11→22:05)
[2018-07-25] MEDS: MULTIVITAMIN TAB PO SCH (07:11)
[2018-07-25] MEDS: predniSONE 5 MG TAB PO SCH (07:13)
[2018-07-25] MEDS: FUROSEMIDE 80 MG TAB PO SCH (07:13)
[2018-07-25] MEDS: POTASSIUM CHLORIDE PWD 20 MEQ PACK PO SCH (07:14)
[2018-07-25] MEDS: ASPIRIN 81 MG ECTAB PO SCH (07:16)
[2018-07-25] MEDS: BUDESONIDE 0.5 MG/2 ML VIAL (PULMICORT) NEB SCH ×2 (07:40→19:27)
[2018-07-25] MEDS: APIXABAN 2.5 MG TAB PO SCH ×2 (09:28→22:04)
[2018-07-25 10:02] LABS: Basophils # (auto) 0.04 K/uL (0-0.2); Basophils % (auto) 0.3 %; Eosinophils # (auto) 0.49 K/uL (0-0.5); Eosinophils % (auto) 4.1 %; Hematocrit (blood only) 47.4 % (37-47); Hemoglobin 15.5 g/dL (12.0-16.0); Immature Granulocytes # (auto) 0.03 K/uL (0.00-0.02); Immature Granulocytes % (auto) 0.3 %; Lymphocytes # (auto) 1.15 K/uL (1.2-3.4); Lymphocytes % (auto) 9.7 %; Mean Corpuscular Hgb Conc 32.7 g/dL (32-36); Mean Corpuscular Volume 98.1 fL (80-100); Mean Platelet Volume 10.7 fL (7.4-10.4); Monocytes # (auto) 1.26 K/uL (0.11-0.59); Monocytes % (auto) 10.7 %; Neutrophils # (auto) 8.86 K/uL (1.4-6.5); Neutrophils % (auto) 74.9 %; Platelet Count 201 K/uL (130-400); RDW Coefficient of Variation 14.7 % (11.5-14.5); RDW Standard Deviation 52.4 fL (36.4-46.3); Red Blood Count 4.83 M/uL (4.2-5.4); White Blood Count 11.83 K/uL (4.8-10.8)
[2018-07-25 10:25] LABS: INR 1.3 (0.9-1.1); Prothrombin Time 12.8 Seconds (9.0-12.0)
[2018-07-25 10:45] LABS: Albumin Globulin Ratio 0.9 (0.9-2); Albumin Level 2.7 gm/dl (3.4-5.0); BUN Creatinine Ratio 25.5 (10-20); Bilirubin,Total 0.7 mg/dl (0.2-1); Calcium 8.5 mg/dl (8.5-10.1); Creatinine Clr Calc Pharmacy 34.7 ml/min; Est GFR (African American) 74.6; Est GFR (Non-African American) 64.3; Globulin 3.1 gm/dl (2.5-4.0); Magnesium 1.7 mg/dl (1.8-2.4); Potassium 3.8 mmol/L (3.5-5.1); Total Protein 5.8 gm/dl (6.4-8.2)
--- NOTE | 2018-07-25 11:39 | Family Medicine Progress Note ---
Date of Service July 25, 2018 Assessment & Plan (1) Acute respiratory failure with hypoxia: Differential includes acute exacerbation of CHF vs. acute COPD exacerbation vs. acute on chronic left pleural effusion In ED on 07/23: CXR performed showed cardiomegaly and advanced emphysema with no radiographic evidence of congestive failure and small to moderate left pleural effusion with associated left basilar consolidation that has not significantly changed from study on 07/15/18. Repeat CXR this morning 07/25: Radiology report - unchanged size of moderate left pleural effusion; stable to slight increase in left basilar atelectasis. Will await Dr. Shoemaker's thoughts on thoracentesis. Continue with Xopenex 1.25mg QID PRN Continue with Pred 5mg PO -On Rocephin 1gm on Day 2, treating potential UTI and will continue as providing respiratory coverage as well even though doubt pneumonia process but is on chronic pred. -procalcitonin ordered this morning was within normal limits. -Has remained afebrile WBC still elevated this morning at 11.83 which is same value as on ED presentation. (2) Recurrent left pleural effusion: In ED - Received albumin 25 g with furosemide 40 mg IV x1. Patient's baseline oxygen is 4 L at home, but had been increased to 6 L in the ED[address] Dr. Shoemaker consulted, whom she follow with in outpatient office regarding the pleural effusion. - awaiting recs on potential thoracentesis. Repeat CXR this morning - radiology reported unchanged moderate left pleural effusion (3) Acute exacerbation of CHF (congestive heart failure): As above. (4) Elevated troponin: Trops elevated 0.047 -> 0.060 -> 0.063 -suspect from demand ischemia from hypoxia, values considered pleateau with no need for further trops Continue apixaban 2.5 mg p.o. twice daily, aspirin 81 mg daily, digoxin 1.5 mcg p.o. every afternoon, metoprolol tartrate 50 mg p.o. every 12 hours and potassium chloride 20 mg once p.o. daily. cardiology consulted. (5) COPD (chronic obstructive pulmonary disease): COPD exacerbation- Xopenex nebulizers to 4 times daily. Budesonide 0.5 mg Neb BID scheduled Patient is concerned about side effects of prednisone, was on chronically and trying to taper off (several month taper), was on prednisone 5 mg daily, and will continue. Does not want IV pred. (6) UTI (urinary tract infection): Placed on ceftriaxone 1 g IV daily to cover urine and pulmonary issues. Day 2. Urine culture showed pinpoint growth - reincubation (7) Recurrent falls: Multifactorial generalized deconditioning, CHF exacerbation, COPD exacerbation, hypoxia, failure to thrive Her physical activity significantly limited by her oxygenation status. She desats with conversation so likely does with any exertion. PT and OT evals ordered (8) Hypomagnesemia: Today 07/25 1.7 Will treat with Mag Ox 400mg PO Will monitor, potassium level within normal limits today. Supervising Physician Co-Signing Physician Notes Patient seen and examined with the resident. Agree with history, physical exam, assessment and plan with the following updates/corrections: 88yo F w/ hx of CHF and COPD who presents with shortness of breath. 1) Acute on chronic diastolic CHF (acute on chronic HFpEF) - Given Lasix and albumin by admitting physician; now on her home dosing of 80mg PO daily. Will monitor weights and I&Os. She does not have any weights documented as outpatient, because she has refused in the office. At present, her shortness of breath is stable. Low concern for further CHF exacerbation. 2) End-stage COPD - Severe, chronic hypoxemic respiratory failure from COPD. O2 dependant at 4-6L NC at home. Will treat with ceftriaxone and continue her home prednisone as she refused increased dosage in the ED. Continue inhalers. Pulm consult given her severe COPD and lack of improvement. 3) Demand ischemia in setting of acute on chronic respiratory failure, COPD exacerbation and acute diastolic CHF. - Troponins low and stable; no major concerns at present for acute thrombotic event. Subjective Anisa was very cooperative and pleasant this morning. No acute events overnight noted. She noted that her son is on his way to the hospital and would like me to return to give him an update. She stated she would like to return home. She did state she is worse from baseline. Physical Exam Vital Signs (Past 24 Hours): Last Vital Signs Temp 36 C L 07/25/18 07:03 Pulse 60 07/25/18 09:49 Resp 20 07/25/18 09:49 BP 173/78 H 07/25/18 07:03 Pulse Ox 95 07/25/18 09:49 Constitutional: + thin and + frail appearing Eyes: + anicteric sclerae and EOM intact bilaterally Neck: normal visual inspection Respiratory: + prolonged expiratory phase Auscultation: + diminished lung sounds speaks in short sentences Cardiovascular: Rate/Rhythm: regular rate; + abnormal rhythm (irregularly irregular) Extremities: no pedal edema Gastrointestinal (Abdomen): Percussion/Palpation: abdomen soft; abdomen nontender Musculoskeletal: Head/Neck/Chest: normocephalic and head atraumatic Neurologic: moves all extremities and awake Psychiatric: Orientation: alert and oriented x 3 Results & Data Laboratory Results Laboratory Results - last 24 hr 07/24/18 07/24/18 07/25/18 12:26 12:26 09:51 WBC 11.83 H RBC 4.83 Hgb 15.5 Hct 47.4 H MCV 98.1 MCH 32.1 MCHC 32.7 RDW Std Deviation 52.4 H RDW Coeff of Krish 14.7 H Plt Count 201 MPV 10.7 H Immature Gran % (Auto) 0.3 Neut % (Auto) 74.9 Lymph % (Auto) 9.7 [place] % (Auto) 10.7 Eos % (Auto) 4.1 Baso % (Auto) 0.3 Immature Gran # (Auto) 0.03 H Neut # (Auto) 8.86 H Lymph # (Auto) 1.15 L [place] # (Auto) 1.26 H Eos # (Auto) 0.49 Baso # (Auto) 0.04 PT INR Sodium Potassium Chloride Carbon Dioxide Anion Gap BUN Creatinine Est Cr Clr Drug Dosing Est GFR ( Amer) Est GFR (Non-Af Amer) BUN/Creatinine Ratio Glucose Calcium Magnesium Total Bilirubin AST ALT Alkaline Phosphatase Troponin I 0.063 H* Total Protein Albumin Globulin Albumin/Globulin Ratio Procalcitonin 0.05 07/25/18 07/25/18 09:51 09:51 WBC RBC Hgb Hct MCV MCH MCHC RDW Std Deviation RDW Coeff of Krish Plt Count MPV Immature Gran % (Auto) Neut % (Auto) Lymph % (Auto) [place] % (Auto) Eos % (Auto) Baso % (Auto) Immature Gran # (Auto) Neut # (Auto) Lymph # (Auto) [place] # (Auto) Eos # (Auto) Baso # (Auto) PT 12.8 H INR 1.3 H Sodium 141 Potassium 3.8 D Chloride 97 L Carbon Dioxide 41 H* Anion Gap 3.0 BUN 21 H Creatinine 0.82 Est Cr Clr Drug Dosing 34.7 Est GFR ( Amer) 74.6 Est GFR (Non-Af Amer) 64.3 BUN/Creatinine Ratio 25.5 H Glucose 97 Calcium 8.5 Magnesium 1.7 L Total Bilirubin 0.7 AST 25 ALT 22 Alkaline Phosphatase 147 H Troponin I Total Protein 5.8 L Albumin 2.7 L Globulin 3.1 Albumin/Globulin Ratio 0.9 Procalcitonin Medications Administered Albuterol (Combivent Respimat) 1 puffs INH TID [facility] Stop: 08/23/18 08:59 Last Admin: 07/25/18 07:11 Dose: 1 puffs Documented by: [id number] Admin: 07/24/18 20:20 Dose: 1 puffs Documented by: [id number] Admin: 07/24/18 14:22 Dose: 1 puffs Documented by: [id number] Admin: 07/24/18 09:00 Dose: 1 puffs Documented by: [id number] Apixaban (Eliquis) 2.5 mg PO BID [facility] Stop: 08/22/18 22:24 Last Admin: 07/25/18 09:28 Dose: 2.5 mg Documented by: [id number] Admin: 07/24/18 20:21 Dose: 2.5 mg Documented by: [id number] Admin: 07/24/18 09:06 Dose: 2.5 mg Documented by: [id number] Admin: 07/24/18 00:10 Dose: 2.5 mg Documented by: [id number] Aspirin (Ecotrin Ectab) 81 mg PO DAILY [facility] Stop: 08/23/18 08:59 Last Admin: 07/25/18 07:16 Dose: 81 mg Documented by: [id number] Admin: 07/24/18 09:05 Dose: 81 mg Documented by: [id number] Budesonide (Pulmicort Respules) 0.5 mg NEB BIDR [facility] Stop: 08/23/18 07:59 Last Admin: 07/25/18 07:40 Dose: Not Given Documented by: [id number] Admin: 07/24/18 19:19 Dose: Not Given Documented by: [id number] Admin: 07/24/18 07:12 Dose: 0.5 mg Documented by: [id number] Digoxin (Lanoxin) 0.125 mg PO DAILY@1600 [facility] Stop: 08/23/18 15:59 Last Admin: 07/24/18 16:23 Dose: 0.125 mg Documented by: [id number] Furosemide (Lasix) 80 mg PO DAILY [facility] Stop: 08/23/18 08:59 Last Admin: 07/25/18 07:13 Dose: 80 mg Documented by: [id number] Admin: 07/24/18 09:06 Dose: 80 mg Documented by: [id number] Ceftriaxone Sodium 1,000 mg/ (Dextrose) 50 mls @ 100 mls/hr IV Q24H [facility]; Protocol Stop: 07/29/18 19:59 Last Infusion: 07/24/18 21:06 Dose: 0 mls/hr Documented by: [id number] Admin: 07/24/18 20:17 Dose: 100 mls/hr Documented by: [id number] Levalbuterol HCl (Xopenex 1.25mg/3ml Neb) 1.25 mg INH QID PRN PRN Reason: Shortness Of Breath Or Wheezing Stop: 08/22/18 22:24 Last Admin: 07/25/18 09:47 Dose: 1.25 mg Documented by: [id number] Admin: 07/25/18 02:43 Dose: 1.25 mg Documented by: [id number] Admin: 07/24/18 19:19 Dose: 1.25 mg Documented by: [id number] Admin: 07/24/18 13:23 Dose: 1.25 mg Documented by: [id number] Levothyroxine Sodium (Synthroid) 75 mcg PO DAILYBB [facility] Stop: 08/23/18 06:29 Last Admin: 07/25/18 05:38 Dose: 75 mcg Documented by: [id number] Admin: 07/24/18 06:06 Dose: 75 mcg Documented by: [id number] Metoprolol Tartrate (Lopressor) 50 mg PO Q12 [facility] Stop: 08/24/18 05:59 Last Admin: 07/25/18 05:38 Dose: 50 mg Documented by: [id number] Miscellaneous (Order Awaiting Action) 1 ea N/A QS [facility] Stop: 08/23/18 00:00 Last Admin: 07/25/18 07:10 Dose: Not Given Documented by: [id number] Admin: 07/25/18 01:59 Dose: Not Given Documented by: [id number] Admin: 07/24/18 16:23 Dose: Not Given Documented by: [id number] Admin: 07/24/18 09:05 Dose: Not Given Documented by: [id number] Admin: 07/24/18 02:47 Dose: Not Given Documented by: [id number] Miscellaneous (Order Awaiting Action) 1 ea N/A QS [facility] Stop: 08/23/18 00:00 Last Admin: 07/25/18 07:10 Dose: Not Given Documented by: [id number] Admin: 07/25/18 01:59 Dose: Not Given Documented by: [id number] Admin: 07/24/18 16:23 Dose: Not Given Documented by: [id number] Admin: 07/24/18 09:05 Dose: Not Given Documented by: [id number] Admin: 07/24/18 02:47 Dose: Not Given Documented by: [id number] Multivitamins (Multivitamin Tab) 1 tab PO DAILY [facility] Stop: 08/23/18 08:59 Last Admin: 07/25/18 07:11 Dose: 1 tab Documented by: [id number] Admin: 07/24/18 10:37 Dose: 1 tab Documented by: [id number] Potassium Chloride (Klor-Con Pwd) 20 meq PO DAILY [facility] Stop: 08/23/18 08:59 Last Admin: 07/25/18 07:14 Dose: 20 meq Documented by: [id number] Admin: 07/24/18 09:06 Dose: 20 meq Documented by: [id number] Prednisone (Prednisone) 5 mg PO DAILY [facility] Stop: 08/23/18 08:59 Last Admin: 07/25/18 07:13 Dose: 5 mg Documented by: [id number] Admin: 07/24/18 09:06 Dose: 5 mg Documented by: [id number] (1) UTI (urinary tract infection) Hematuria presence: without hematuria Urinary tract infection type: site unspecified Qualified Code(s): N39.0 - Urinary tract infection, site not specified
[2018-07-25] MEDS ORDERED: LEVALBUTEROL HCL 1.25 MG/3 ML NEB NEB STA (11:57)
[2018-07-25] MEDS ORDERED: MAGNESIUM OXIDE 400 MG TAB PO ONE (12:00)
[2018-07-25] MEDS: DIGOXIN 0.125 MG TAB PO SCH (15:44)
--- NOTE | 2018-07-25 17:33 | Cardiology Consultation ---
Date of Consultation July 25, 2018 Assessment & Plan (1) Acute respiratory failure with hypoxia: Mrs. 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 -- Continue supplemental O2 -- Continue inhalers and nebulizers as directed. -- Continue oral prednisone. -- For future reference -- at onset of symptoms patient responds dramatically to Solu-Medrol 125 mg IV and Lasix 80 mg IV - each x 1 dose. Provided patient's oxygen saturations stay up, patient may be discharged to home tomorrow from a cardiac standpoint. We will plan on following up with her in our cardiology office within the next week. Present on Admission?: Yes (2) Chronic diastolic heart failure: -- Continue Lasix at usual home dose. -- Continue KCL at usual home dose. -- Monitor daily weights. -- Continue Metoprolol at current dose. Present on Admission?: Yes (3) Recurrent left pleural effusion: -- This is a chronic left pleural effusion which does not appear to be significantly worse than baseline. -- Would avoid thoracentesis at this time -- and continue treating underlying diastolic CHF. Present on Admission?: Yes (4) Elevated troponin: -- Secondary to myocardial O2 supply demand mismatch related to hypoxemia, COPD, and CHF. -- This does not appear to be an acute coronary syndrome. -- No further ischemic workup is necessary at this time. -- No significant CAD on cardiac catheterization 2016. Present on Admission?: Yes (5) Permanent atrial fibrillation: -- Continue Metoprolol at current dose. -- Continue Digoxin 125 mcg daily. -- Continue Eliquis 2.5 mg bid for thromboembolic prophylaxis. Present on Admission?: Yes Supervising Physician Co-Signing Physician Notes Terence Wilson MD History of Present Illness Reason for Consultation: -- Worsening Hypoxia. -- Chronic Diastolic CHF. -- Chronic Left Pleural Effusion. Requesting Physician: Morgan Carvalho MD Attending Physician: Terence Wilson MD History of Present Illness Mrs. 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 The current time, patient is being seen in room 263. She is feeling significantly better at this point. She has responded to treatment. She still gets mildly short of breath after eating, but overall is feeling close to baseline. Patient denies any chest pain, heaviness, tightness, pressure, or discomfort. She denies any neck, jaw, back, or arm pain. Her lower extremity edema has resolved. Breathing status is approaching baseline. Patient did have a mild bump in her troponin I on admission, but this is likely secondary to myocardial O2 supply demand mismatch as she had no significant CAD on cardiac catheterization 2016. Thus far she has a negative fluid balance of - 396 ml total. Patient does have a left pleural effusion, however this is a chronic issue and does not necessarily appear to be more voluminous at this time. Patient has had the following Cardiac Procedures / Studies: CARDIAC CATHETERIZATION 09/29/2016: 1. LMCA -- Normal. 2. LAD -- 30% Ostial stenosis, 0% to 10% mid vessel stenosis. 3. D1 -- Normal. 4. LCx -- 30% Ostial stenosis, 10% to 20% mid vessel stenosis. 5. OM1 -- 30% Ostial stenosis. 6. OM2, OM3 -- Normal. 7. RCA -- 0% to 10% Proximal stenosis, 10% to 20% mid vessel stenosis, 0% to 10% distal stenosis. 8. PDA, PLA1, PLA2 -- Normal. 9. Acute Marginal -- Normal. TAVR 10/18/2016 [facility]. ECHOCARDIOGRAM 10/24/2016: 1. Normal LV size and systolic function. 2. LVEF 55% to 60%, no regional wall motion abnormalities. 3. Borderline dilated RV with reduced RV systolic function. 4. Mild MR. 5. Trace TR. 6. Appropriately functioning bioprosthetic TAVR with small perivalvular leak. 7. Mild RA dilatation. 8. RVSP elevated at 40 to 50 mmHg. ECHOCARDIOGRAM 01/17/17: -- LVEF > 70%. -- TAVR with appropriate gradients / function. -- Mild concentric LVH. -- Mild AI, MR, and TR. -- Normal RV size and systolic function. -- RVSP = 50 to 60 mmHg Allergies Allergy/AdvReac Type Severity Reaction Status Date / Time clonidine Allergy Mild SHORTNESS Verified 10/02/17 14:53 OF BREATH amlodipine Allergy Unknown rash,dizzy/balance Verified 07/23/18 19:40 off Iodinated Contrast- Oral and Allergy Unknown "IT JUST Verified 10/02/17 14:53 IV Dye AFFECTS ME AND I CAN'T EXPLAIN IT" latex Allergy Unknown RASH Verified 10/02/17 14:53 Penicillins Allergy Unknown UNKNOWN Verified 10/02/17 14:53 Sulfa (Sulfonamide Allergy Unknown "SWELLING Verified 10/02/17 14:53 Antibiotics) IN MOUTH AND DRIED OUT" atenolol Allergy Rash/dizzy Verified 07/23/18 19:40 clarithromycin Allergy Rash Verified 07/23/18 19:40 gatifloxacin Allergy rash/dizzy/ Verified 07/23/18 19:40 lightheaded losartan Allergy rash/dizzy Verified 07/23/18 19:40 Home Medications Home Medications Medication Instructions Recorded Confirmed Type apixaban [Eliquis] 2.5 mg PO BID 07/23/18 07/23/18 History aspirin [Aspir-81] 81 mg PO DAILY 07/23/18 07/23/18 History digoxin [Digox] 125 mcg PO QPM 07/23/18 07/23/18 History fluocinolone acetonide oil 1 dose OTB UD PRN 07/23/18 07/23/18 History furosemide [Lasix] 80 mg PO DAILY 07/23/18 07/23/18 History ipratropium bromide 2 spray INTRANASAL TID PRN 07/23/18 07/23/18 History ipratropium-albuterol [Combivent 1 puff INHALATION TID 07/23/18 07/23/18 History Respimat] lactobacillus combination no.4 0 mmu cells PO DAILY 07/23/18 07/23/18 History [Probiotic] levalbuterol HCl [Xopenex] 1 dose INHALATION TID PRN 07/23/18 07/23/18 History levothyroxine 75 mcg PO DAILY 07/23/18 07/23/18 History metoprolol tartrate [Lopressor] 50 mg PO Q12 07/23/18 07/23/18 History multivitamin 1 tab PO DAILY 07/23/18 07/23/18 History potassium chloride 20 meq PO DAILY 07/23/18 07/23/18 History prednisone 5 mg PO DAILY 07/23/18 07/23/18 History travoprost [Travatan Z] 1 drp OPB HS 07/23/18 07/23/18 History Patient History Medical History COPD (chronic obstructive pulmonary disease) (Chronic) Anxiety (Chronic) Atrial fibrillation with RVR (Chronic) Social History Communication Ability: Effective Beliefs That Will Affect Care: None marital status: Current Living Situation: Alone Other Information That Helps Us Care for You: No Feels Safe at Home: Yes Safety Concerns: Feels Safe At This Time Smoking Status: Former smoker Hx Alcohol Use: No Hx Substance Use: No Physical Exam Vital Signs (Past 24 Hours): Last Vital Signs Temp 36.6 C 07/25/18 15:46 Pulse 87 07/25/18 16:43 Resp 18 07/25/18 16:43 BP 162/72 H 07/25/18 15:46 Pulse Ox 91 07/25/18 16:43 Physical Exam: General: Patient in no acute distress. HEENT: Head is atraumatic, normocephalic. EOMs intact. Sclerae anicteric. Facies symmetric. No perioral cyanosis. Neck: No thyromegaly, adenopathy, or JVD. Carotid upstrokes +2 bilaterally without bruits. JVP is at the level of the clavicle sitting upright. Chest and Lungs: Absent breath sounds in left base, otherwise diminished breath sounds throughout, scattered late expiratory wheezes. CVS: S1 and S2 are irregularly irregular at a rate of 78 bpm, with a grade 1/6 basal mid systolic murmur which does not appear to radiate. Accentuated aortic valve closure sound. No diastolic murmurs appreciated. No gallops or rubs. PMI is nondisplaced. No lifts, heaves, or thrills. Abdominal Exam: Bowel sounds present. No masses, organomegaly, or tenderness. Extremities: No edema. No clubbing or cyanosis. Neurologic Exam: Patient is awake, alert, and interactive. Answers questions as she typically does. Speech is clear. Normal movement in all 4 extremities. Gait pattern - Not assessed. Results & Data Laboratory Results Laboratory Results - last 24 hr 07/25/18 07/25/18 07/25/18 09:51 09:51 09:51 WBC 11.83 H RBC 4.83 Hgb 15.5 Hct 47.4 H MCV 98.1 MCH 32.1 MCHC 32.7 RDW Std Deviation 52.4 H RDW Coeff of Krish 14.7 H Plt Count 201 MPV 10.7 H Immature Gran % (Auto) 0.3 Neut % (Auto) 74.9 Lymph % (Auto) 9.7 [place] % (Auto) 10.7 Eos % (Auto) 4.1 Baso % (Auto) 0.3 Immature Gran # (Auto) 0.03 H Neut # (Auto) 8.86 H Lymph # (Auto) 1.15 L [place] # (Auto) 1.26 H Eos # (Auto) 0.49 Baso # (Auto) 0.04 PT 12.8 H INR 1.3 H Sodium 141 Potassium 3.8 D Chloride 97 L Carbon Dioxide 41 H* Anion Gap 3.0 BUN 21 H Creatinine 0.82 Est Cr Clr Drug Dosing 34.7 Est GFR ( Amer) 74.6 Est GFR (Non-Af Amer) 64.3 BUN/Creatinine Ratio 25.5 H Glucose 97 Calcium 8.5 Magnesium 1.7 L Total Bilirubin 0.7 AST 25 ALT 22 Alkaline Phosphatase 147 H Total Protein 5.8 L Albumin 2.7 L Globulin 3.1 Albumin/Globulin Ratio 0.9 Medications Administered Active Medications Generic Name Dose Route Start Last Admin Trade Name Freq PRN Reason Stop Dose Admin Acetaminophen 1,000 mg 07/23/18 22:25 Ofirmev IV 08/22/18 22:24 Q8H PRN Pain or Fever Acetaminophen 650 mg 07/23/18 22:25 Tylenol PO 08/22/18 22:24 Q4H PRN Pain or Fever Al Hydrox/Mg Hydrox/Simethicone 15 ml 07/23/18 22:25 Maalox PO 08/22/18 22:24 Q4H PRN Dyspepsia Albuterol 1 puffs 07/24/18 09:00 07/25/18 14:31 Combivent Respimat INH 08/23/18 08:59 1 puffs TID [facility] Administration Apixaban 2.5 mg 07/23/18 22:25 07/25/18 09:28 Eliquis PO 08/22/18 22:24 2.5 mg BID [facility] Administration Aspirin 81 mg 07/24/18 09:00 07/25/18 07:16 Ecotrin Ectab PO 08/23/18 08:59 81 mg DAILY [facility] Administration Budesonide 0.5 mg 07/24/18 08:00 07/25/18 07:40 Pulmicort Respules NEB 08/23/18 07:59 Not Given BIDR [facility] Digoxin 0.125 mg 07/24/18 16:00 07/25/18 15:44 Lanoxin PO 08/23/18 15:59 0.125 mg DAILY@1600 [facility] Administration Furosemide 80 mg 07/24/18 09:00 07/25/18 07:13 Lasix PO 08/23/18 08:59 80 mg DAILY [facility] Administration Ceftriaxone Sodium 1,000 mg/ 50 mls @ 100 mls/hr 07/24/18 20:00 07/24/18 21:06 Dextrose IV 07/29/18 19:59 Infused Q24H [facility] Infusion Protocol Levalbuterol HCl 1.25 mg 07/23/18 22:25 07/25/18 16:42 Xopenex 1.25mg/3ml Neb INH 08/22/18 22:24 1.25 mg QID PRN Administration Shortness Of Breath Or Wheezing Levothyroxine Sodium 75 mcg 07/24/18 06:30 07/25/18 05:38 Synthroid PO 08/23/18 06:29 75 mcg DAILYBB [facility] Administration Magnesium Hydroxide 30 ml 07/23/18 22:25 Milk Of Magnesia PO 08/22/18 22:24 Q12H PRN Constipation Metoprolol Tartrate 50 mg 07/25/18 06:00 07/25/18 05:38 Lopressor PO 08/24/18 05:59 50 mg Q12 [facility] Administration Miscellaneous 1 ea 07/24/18 00:00 07/25/18 15:44 Order Awaiting Action N/A 08/23/18 00:00 Not Given QS [facility] Miscellaneous 1 ea 07/24/18 00:00 07/25/18 17:03 Order Awaiting Action N/A 08/23/18 00:00 Not Given QS [facility] Multivitamins 1 tab 07/24/18 09:00 07/25/18 07:11 Multivitamin Tab PO 08/23/18 08:59 1 tab DAILY [facility] Administration Ondansetron HCl 4 mg 07/23/18 22:25 Zofran IV 08/22/18 22:24 Q6H PRN NAUSEA/VOMITING Potassium Chloride 20 meq 07/24/18 09:00 07/25/18 07:14 Klor-Con Pwd PO 08/23/18 08:59 20 meq DAILY [facility] Administration Prednisone 5 mg 07/24/18 09:00 07/25/18 07:13 Prednisone PO 08/23/18 08:59 5 mg DAILY [facility] Administration
--- NOTE | 2018-07-25 18:07 | XRay Report ---
XR chest 1V portable HISTORY: 88 years-old Female S/P Thoracentesis follow up study in a patient with left pleural effusi on COMPARISON: Chest radiograph of same day at 6:46 AM TECHNIQUE: Portable AP view of the chest FINDINGS: Cardiac silhouette is enlarged, unchanged. Endovascular aortic valve replacement. Calcification the t horacic aortic arch. Decreased size of left pleural effusion status post thoracentesis. A small to mo derate pneumothorax is noted about the lateral left lung base. Minimal subsegmental left basilar opac ities. Right lung is generally clear. No overt pulmonary edema. Degenerative changes of the shoulders and spine. IMPRESSION: 1. Decreased size of the left pleural effusion status post thoracentesis. 2. Post procedural pneumothorax is noted about the lateral left lung base. Follow-up recommended. 3. Cardiomegaly. The above report was generated using voice recognition software. It may contain grammatical, syntax o r spelling errors. Electronically signed by: Camden Avendano M.D. 07/25/2018 6:06 PM
--- NOTE | 2018-07-25 18:47 | Progress Note ---
DATE: 07/25/[address] was this morning. Her x-ray has not really changed. She still has significant amount of fluid. She appears improved, but she is still requiring higher amounts of oxygen at night. I am going to go ahead and offer her an ultrasound-guided thoracentesis later today. I told her that and she is agreeable. Will be back later today.
--- NOTE | 2018-07-25 18:55 | Progress Note ---
DATE: 07/25/[address] had a thoracentesis and she feels much better. 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 It is unfortunate. We will discuss options in the morning after I repeat a chest x-ray. We may want to put a PleurX catheter in depending on how her symptoms improve.
[2018-07-25 19:13] LABS: Total Protein Pleural Fluid 1.4 g/dl
[2018-07-25 19:22] LABS: Appearance Pleural Fluid CLEAR; Color Pleural Fluid YELLOW; Mononuclear WBC Pleural 84.7 %; Polynuclear WBC Pleural 15.3 %; RBC Pleural Fluid (A) < 3000 /uL; Source Pleural Fluid LEFT LUNG; WBC Pleural Fluid (A) 165 /uL
[2018-07-25] MEDS: cefTRIAXone SODIUM 1,000 MG in DEXTROSE 5% 50 ML IV SCH (19:44)
[2018-07-25] MEDS ORDERED: POLYETHYLENE (MIRALAX) 17 GM PACK PO PRN (20:56)
[2018-07-25] MEDS: TRAVOPROST Z 0.004% OPH SOLN 2.5 ML BTL OPB SCH (22:04)
[2018-07-26] MEDS ORDERED: HydrALAZINE HCL 20 MG/ML VIAL IV STA (00:23)
--- NOTE | 2018-07-26 01:29 | Operative Report ---
DATE OF OPERATION: 07/25/2018 PROCEDURE: Ultrasound-guided left thoracentesis. PREOPERATIVE DIAGNOSIS: Recalcitrant left pleural effusion. POSTOPERATIVE DIAGNOSIS: Recalcitrant left pleural effusion. PROCEDURE: Left thoracentesis under ultrasound guidance. SURGEON: Lee Shoemaker MD ANESTHESIA: Local. DESCRIPTION OF PROCEDURE: The patient in upright position, I used an ultrasound and saw that she has fairly significant amount of fluid. She was prepped and draped in the usual sterile fashion and after appropriate timeout had been called, a 25-gauge needle with Xylocaine was used to anesthetize skin and subcutaneous tissues. A skin wheal was raised. A large bore needle was used to the deeper tissues and then we got free flowing fluid and the syringe was removed with the needled and guidewire inserted through the needle and the needle removed. Dilator was gently slid over the guidewire and then removed to gently enlarge insertion tract and the triple lumen catheter was slid in 17 cm and the guidewire removed without difficulty. Serous yellow fluid of 900 mL was drained. She had some mild reexpansion coughing and mild pain. We did not get any air. She started having some pain. Given her age and frailty, I elected to stop at that point. We removed the catheter. She had no bleeding. I placed an antimicrobial dressing over this. She tolerated it well and the pH of the fluid was 7.44. Chest x-ray is pending. I attest to the content of the Intraoperative Record and any orders documented therein. Any exception s are noted below.
[2018-07-26] MEDS: LEVALBUTEROL HCL 1.25 MG/3 ML NEB INH PRN (01:30)
[2018-07-26] MEDS: LEVALBUTEROL HCL 1.25 MG/3 ML NEB INH SCH ×7 (03:42→23:32)
[2018-07-26] MEDS: LEVOTHYROXINE SODIUM 75 MCG TABLET PO SCH (05:37)
[2018-07-26 06:13] LABS: Basophils # (auto) 0.01 K/uL (0-0.2); Basophils % (auto) 0.1 %; Eosinophils % (auto) 1.4 %; Hematocrit (blood only) 52.7 % (37-47); Hemoglobin 17.4 g/dL (12.0-16.0); Immature Granulocytes # (auto) 0.04 K/uL (0.00-0.02); Immature Granulocytes % (auto) 0.3 %; Lymphocytes # (auto) 0.96 K/uL (1.2-3.4); Lymphocytes % (auto) 6.7 %; Mean Corpuscular Volume 97.1 fL (80-100); Mean Platelet Volume 11.2 fL (7.4-10.4); Monocytes # (auto) 1.25 K/uL (0.11-0.59); Monocytes % (auto) 8.8 %; Neutrophils # (auto) 11.79 K/uL (1.4-6.5); Neutrophils % (auto) 82.7 %; Platelet Count 216 K/uL (130-400); RDW Coefficient of Variation 14.7 % (11.5-14.5); RDW Standard Deviation 51.5 fL (36.4-46.3); Red Blood Count 5.43 M/uL (4.2-5.4); White Blood Count 14.25 K/uL (4.8-10.8)
[2018-07-26 06:28] LABS: INR 1.2 (0.9-1.1); Prothrombin Time 12.3 Seconds (9.0-12.0)
[2018-07-26 06:50] LABS: BUN Creatinine Ratio 19.2 (10-20); Calcium 8.6 mg/dl (8.5-10.1); Creatinine Clr Calc Pharmacy 30.9 ml/min; Est GFR (African American) 64.9; Magnesium 1.9 mg/dl (1.8-2.4); Potassium 3.7 mmol/L (3.5-5.1)
[2018-07-26 06:57] LABS: Albumin Globulin Ratio 0.9 (0.9-2); Bilirubin,Total 1.2 mg/dl (0.2-1); Globulin 3.5 gm/dl (2.5-4.0); Total Protein 6.5 gm/dl (6.4-8.2)
--- NOTE | 2018-07-26 07:08 | XRay Report ---
XR chest 1V portable HISTORY: 88 years-old Female trapped left lung follow-up study in a patient with left pneumothorax COMPARISON: Chest radiograph 07/25/2018 TECHNIQUE: Portable AP view of the chest FINDINGS: Cardiac silhouette is again enlarged. Endovascular aortic valve replacement. Calcification of the tho racic aortic valve. Mild bilateral coarsening of interstitium. Reaccumulation of pleural fluid about the left lung base. Left apical pneumothorax, pleural separation of 9 mm. The previously noted pneumo thorax at the left lung base is not clearly seen. Bones of the chest appear to be grossly intact. IMPRESSION: 1. Left hydropneumothorax with increased amount of left-sided pleural fluid from comparison. 2. Cardiomegaly. The above report was generated using voice recognition software. It may contain grammatical, syntax o r spelling errors. Electronically signed by: Camden Avendano M.D. 07/26/2018 7:06 AM
[2018-07-26] MEDS: BUDESONIDE 0.5 MG/2 ML VIAL (PULMICORT) NEB SCH ×2 (07:25→19:13)
[2018-07-26] MEDS: METOPROLOL TARTRATE 50 MG TAB PO SCH ×2 (07:35→20:41)
[2018-07-26] MEDS: ASPIRIN 81 MG ECTAB PO SCH (07:35)
[2018-07-26] MEDS: FUROSEMIDE 80 MG TAB PO SCH (07:35)
[2018-07-26] MEDS: MULTIVITAMIN TAB PO SCH (07:35)
[2018-07-26] MEDS: APIXABAN 2.5 MG TAB PO SCH ×2 (07:35→20:41)
[2018-07-26] MEDS: predniSONE 5 MG TAB PO SCH (07:35)
[2018-07-26] MEDS: POTASSIUM CHLORIDE PWD 20 MEQ PACK PO SCH (07:36)
--- NOTE | 2018-07-26 08:34 | Family Medicine Progress Note ---
Date of Service July 26, 2018 Assessment & Plan (1) Acute respiratory failure with hypoxia: Differential includes acute exacerbation of CHF vs. acute COPD exacerbation vs. acute on chronic left pleural effusion In ED on 07/23: CXR performed showed cardiomegaly and advanced emphysema with no radiographic evidence of congestive failure and small to moderate left pleural effusion with associated left basilar consolidation that has not significantly changed from study on 07/15/18. Repeat CXR this morning 07/25: Radiology report - unchanged size of moderate left pleural effusion; stable to slight increase in left basilar atelectasis. Will await Dr. Shoemaker's thoughts on thoracentesis. Continue with Xopenex 1.25mg QID PRN Continue with Pred 5mg PO -On Rocephin 1gm on Day 3, treating potential UTI and will continue as providing respiratory coverage for possible underlying pneumonia process also ntoed is on chronic pred, immunosuppression. -procalcitonin ordered was within normal limits. -Has remained afebrile WBC still elevated yesterday 11.83 which is same value as on ED presentation. - Today elevated to 14.25. But increase in CBC values WBC, RBC, Hgb, Hct - blood appears more concentrated this morning and elevation could be related to this. (2) Recurrent left pleural effusion: In ED - Received albumin 25 g with furosemide 40 mg IV x1. Patient's baseline oxygen is 4 L at home, but had been increased to 6 L in the ED[address] Dr. Shoemaker consulted, whom she follow with in outpatient office regarding the pleural effusion. - performed thoracentesis last night. - there was concern for pneumothorax following procedure, but Dr. 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 - fluid re-accumulated this morning on follow up CXR. - Patient not a great candidate for treatment options of PleurX cath or surgery as she would most likely not tolerate procedures. - Will be difficult to treat - Negative for lights criteria and considered transudative process. Palliative care consult was placed. (3) Acute exacerbation of CHF (congestive heart failure): As above. (4) Elevated troponin: Trops elevated 0.047 -> 0.060 -> 0.063 -suspect from demand ischemia from hypoxia, values considered pleateau with no need for further trops Continue apixaban 2.5 mg p.o. twice daily, aspirin 81 mg daily, digoxin 1.5 mcg p.o. every afternoon, metoprolol tartrate 50 mg p.o. every 12 hours and potassium chloride 20 mg once p.o. daily. cardiology consulted. (5) COPD (chronic obstructive pulmonary disease): COPD exacerbation- Xopenex nebulizers to 4 times daily. Budesonide 0.5 mg Neb BID scheduled Patient is concerned about side effects of prednisone, was on chronically and trying to taper off (several month taper), was on prednisone 5 mg daily, and will continue. Does not want IV pred. (6) UTI (urinary tract infection): Placed on ceftriaxone 1 g IV daily to cover urine and pulmonary issues. Day 3. Urine culture showed pinpoint growth - reincubation on 07/25 - Today resulted showing mod growth of skin chen (7) Recurrent falls: Multifactorial generalized deconditioning, CHF exacerbation, COPD exacerbation, hypoxia, failure to thrive Her physical activity significantly limited by her oxygenation status. She desats with conversation so likely does with any exertion. PT and OT evals ordered (8) Hypomagnesemia: 07/25 1.7 treated with Mag Ox 400mg PO Today 07/26 - 1.9 WNL Will monitor, potassium level within normal limits today. Supervising Physician Co-Signing Physician Notes Patient seen and examined with the resident. Agree with history, physical exam, assessment and plan with the following updates/corrections: 88yo F w/ hx of CHF and COPD who presents with shortness of breath. Today, she is almost at baseline. Is tired of the hospital. Is frustrated that she re-accumulated the pleural effusion. 1) End-stage COPD - Severe, chronic hypoxemic respiratory failure from COPD. O2 dependant at 4-6L NC at home. Will treat with ceftriaxone and continue her home prednisone as she refused increased dosage in the ED. Continue inhalers. S/p thoracentesis on 07/25, but the pleural effusion re-accumulated within a day. 2) Acute on chronic diastolic CHF (acute on chronic HFpEF) - Given Lasix and albumin by admitting physician; now on her home dosing of 80mg PO daily. Will monitor weights and I&Os. She does not have any weights documented as outpatient, because she has refused in the office. At present, her shortness of breath is stable. Low concern for further CHF exacerbation. 3) Demand ischemia in setting of acute on chronic respiratory failure, COPD exacerbation and acute diastolic CHF. - Troponins low and stable; no major concerns at present for acute thrombotic event. Subjective Anisa, prefers to go by Usha, states she woke up at 5am with shortness of breat this morning that has improved. She notes that her breathing is worse than yesterday but improved from admission. She states she had subjective fever and felt cold last night as well. No cough, no nausea, no vomiting, no diarrhea. She notes that she did not feel any improvement following thoracentesis procedure yesterday afternoon. She also states that she does not want anymore blood work done. Physical Exam Vital Signs (Past 24 Hours): Last Vital Signs Temp 36.5 C 07/26/18 08:00 Pulse 83 07/26/18 08:00 Resp 22 07/26/18 08:00 BP 157/67 H 07/26/18 08:00 Pulse Ox 96 07/26/18 08:00 Constitutional: + thin and + frail appearing Eyes: + anicteric sclerae and EOM intact bilaterally Neck: normal visual inspection Respiratory: + prolonged expiratory phase Auscultation: + diminished lung sounds Cardiovascular: Rate/Rhythm: regular rate; + abnormal rhythm (irregularly irregular) Extremities: no pedal edema Gastrointestinal (Abdomen): Percussion/Palpation: abdomen soft; abdomen nontender Musculoskeletal: Head/Neck/Chest: normocephalic and head atraumatic Skin: multiple old well healing ecchymosis on bilateral legs and upper extremities Neurologic: moves all extremities and awake Psychiatric: Orientation: alert and oriented x 3 Results & Data Laboratory Results Laboratory Results - last 24 hr 07/25/18 07/25/18 07/25/18 18:55 Unknown Unknown WBC RBC Hgb Hct MCV MCH MCHC RDW Std Deviation RDW Coeff of Krish Plt Count MPV Immature Gran % (Auto) Neut % (Auto) Lymph % (Auto) Woodruff % (Auto) Eos % (Auto) Baso % (Auto) Immature Gran # (Auto) Neut # (Auto) Lymph # (Auto) Woodruff # (Auto) Eos # (Auto) Baso # (Auto) PT INR Sodium Potassium Chloride Carbon Dioxide Anion Gap BUN Creatinine Est Cr Clr Drug Dosing Est GFR ( Amer) Est GFR (Non-Af Amer) BUN/Creatinine Ratio Glucose Calcium Magnesium Total Bilirubin AST ALT Alkaline Phosphatase Lactate Dehydrogenase 335 H Total Protein Albumin Globulin Albumin/Globulin Ratio Pleural Fluid Source LEFT LUNG Pleural Color YELLOW Pleural Appearance CLEAR Pleural WBC 165 Pleural RBC < 3000 Pleural Polynuclear % 15.3 Pleural Mononuclear % 84.7 Pleural Total Protein 1.4 Pleural LDH 66 Pleural Glucose 173 Pleural Amylase 24 07/26/18 07/26/18 07/26/18 05:49 05:49 05:49 WBC 14.25 H RBC 5.43 H Hgb 17.4 H Hct 52.7 H MCV 97.1 MCH 32.0 MCHC 33.0 RDW Std Deviation 51.5 H RDW Coeff of Krish 14.7 H Plt Count 216 MPV 11.2 H Immature Gran % (Auto) 0.3 Neut % (Auto) 82.7 Lymph % (Auto) 6.7 Woodruff % (Auto) 8.8 Eos % (Auto) 1.4 Baso % (Auto) 0.1 Immature Gran # (Auto) 0.04 H Neut # (Auto) 11.79 H Lymph # (Auto) 0.96 L Woodruff # (Auto) 1.25 H Eos # (Auto) 0.20 Baso # (Auto) 0.01 PT 12.3 H INR 1.2 H Sodium 138 Potassium 3.7 Chloride 93 L Carbon Dioxide 40 H Anion Gap 5.0 BUN 18 Creatinine 0.92 Est Cr Clr Drug Dosing 30.9 Est GFR ( Amer) 64.9 Est GFR (Non-Af Amer) 56.0 BUN/Creatinine Ratio 19.2 Glucose 124 H Calcium 8.6 Magnesium 1.9 Total Bilirubin 1.2 H D AST 27 ALT 21 Alkaline Phosphatase 157 H Lactate Dehydrogenase Total Protein 6.5 Albumin 3.0 L Globulin 3.5 Albumin/Globulin Ratio 0.9 Pleural Fluid Source Pleural Color Pleural Appearance Pleural WBC Pleural RBC Pleural Polynuclear % Pleural Mononuclear % Pleural Total Protein Pleural LDH Pleural Glucose Pleural Amylase Medications Administered Albuterol (Combivent Respimat) 1 puffs INH TID RAMILA Stop: 08/23/18 08:59 Last Admin: 07/25/18 22:05 Dose: 1 puffs Documented by: [id number] Admin: 07/25/18 14:31 Dose: 1 puffs Documented by: [id number] Admin: 07/25/18 07:11 Dose: 1 puffs Documented by: [id number] Admin: 07/24/18 20:20 Dose: 1 puffs Documented by: [id number] Admin: 07/24/18 14:22 Dose: 1 puffs Documented by: [id number] Admin: 07/24/18 09:00 Dose: 1 puffs Documented by: [id number] Apixaban (Eliquis) 2.5 mg PO BID RAMILA Stop: 08/22/18 22:24 Last Admin: 07/26/18 07:35 Dose: 2.5 mg Documented by: [id number] Admin: 07/25/18 22:04 Dose: 2.5 mg Documented by: [id number] Admin: 07/25/18 09:28 Dose: 2.5 mg Documented by: [id number] Admin: 07/24/18 20:21 Dose: 2.5 mg Documented by: [id number] Admin: 07/24/18 09:06 Dose: 2.5 mg Documented by: [id number] Admin: 07/24/18 00:10 Dose: 2.5 mg Documented by: [id number] Aspirin (Ecotrin Ectab) 81 mg PO DAILY RAMILA Stop: 08/23/18 08:59 Last Admin: 07/26/18 07:35 Dose: 81 mg Documented by: [id number] Admin: 07/25/18 07:16 Dose: 81 mg Documented by: [id number] Admin: 07/24/18 09:05 Dose: 81 mg Documented by: [id number] Budesonide (Pulmicort Respules) 0.5 mg NEB BIDR RAMILA Stop: 08/23/18 07:59 Last Admin: 07/26/18 07:25 Dose: Not Given Documented by: [id number] Admin: 07/25/18 19:27 Dose: 0.5 mg Documented by: [id number] Admin: 07/25/18 07:40 Dose: Not Given Documented by: [id number] Admin: 07/24/18 19:19 Dose: Not Given Documented by: [id number] Admin: 07/24/18 07:12 Dose: 0.5 mg Documented by: [id number] Digoxin (Lanoxin) 0.125 mg PO DAILY@1600 [facility] Stop: 08/23/18 15:59 Last Admin: 07/25/18 15:44 Dose: 0.125 mg Documented by: [id number] Admin: 07/24/18 16:23 Dose: 0.125 mg Documented by: [id number] Furosemide (Lasix) 80 mg PO DAILY RAMILA Stop: 08/23/18 08:59 Last Admin: 07/26/18 07:35 Dose: 80 mg Documented by: [id number] Admin: 07/25/18 07:13 Dose: 80 mg Documented by: [id number] Admin: 07/24/18 09:06 Dose: 80 mg Documented by: [id number] Ceftriaxone Sodium 1,000 mg/ (Dextrose) 50 mls @ 100 mls/hr IV Q24H [facility]; Protocol Stop: 07/29/18 19:59 Last Infusion: 07/25/18 20:20 Dose: 0 mls/hr Documented by: [id number] Admin: 07/25/18 19:44 Dose: 100 mls/hr Documented by: [id number] Infusion: 07/24/18 21:06 Dose: 0 mls/hr Documented by: [id number] Admin: 07/24/18 20:17 Dose: 100 mls/hr Documented by: [id number] Levalbuterol HCl (Xopenex 1.25mg/3ml Neb) 1.25 mg INH Q4R [facility] Stop: 08/25/18 03:59 Last Admin: 07/26/18 15:36 Dose: 1.25 mg Documented by: [id number] Admin: 07/26/18 11:20 Dose: 1.25 mg Documented by: [id number] Admin: 07/26/18 07:24 Dose: 1.25 mg Documented by: [id number] Admin: 07/26/18 05:50 Dose: 1.25 mg Documented by: [id number] Admin: 07/26/18 03:42 Dose: 1.25 mg Documented by: [id number] Levothyroxine Sodium (Synthroid) 75 mcg PO DAILYBB [facility] Stop: 08/23/18 06:29 Last Admin: 07/26/18 05:37 Dose: 75 mcg Documented by: [id number] Admin: 07/25/18 05:38 Dose: 75 mcg Documented by: [id number] Admin: 07/24/18 06:06 Dose: 75 mcg Documented by: [id number] Metoprolol Tartrate (Lopressor) 50 mg PO Q12 [facility] Stop: 08/24/18 05:59 Last Admin: 07/26/18 07:35 Dose: 50 mg Documented by: [id number] Admin: 07/25/18 22:04 Dose: 50 mg Documented by: [id number] Admin: 07/25/18 05:38 Dose: 50 mg Documented by: [id number] Miscellaneous (Order Awaiting Action) 1 ea N/A QS [facility]ILA Stop: 08/23/18 00:00 Last Admin: 07/26/18 06:56 Dose: Not Given Documented by: [id number] Admin: 07/26/18 01:05 Dose: Not Given Documented by: [id number] Admin: 07/25/18 15:44 Dose: Not Given Documented by: [id number] Admin: 07/25/18 07:10 Dose: Not Given Documented by: [id number] Admin: 07/25/18 01:59 Dose: Not Given Documented by: [id number] Admin: 07/24/18 16:23 Dose: Not Given Documented by: [id number] Admin: 07/24/18 09:05 Dose: Not Given Documented by: [id number] Admin: 07/24/18 02:47 Dose: Not Given Documented by: [id number] Miscellaneous (Order Awaiting Action) 1 ea N/A QS RAMILA Stop: 08/23/18 00:00 Last Admin: 07/26/18 06:56 Dose: Not Given Documented by: [id number] Admin: 07/26/18 01:06 Dose: Not Given Documented by: [id number] Admin: 07/25/18 17:03 Dose: Not Given Documented by: [id number] Admin: 07/25/18 07:10 Dose: Not Given Documented by: [id number] Admin: 07/25/18 01:59 Dose: Not Given Documented by: [id number] Admin: 07/24/18 16:23 Dose: Not Given Documented by: [id number] Admin: 07/24/18 09:05 Dose: Not Given Documented by: [id number] Admin: 07/24/18 02:47 Dose: Not Given Documented by: [id number] Multivitamins (Multivitamin Tab) 1 tab PO DAILY RAMILA Stop: 08/23/18 08:59 Last Admin: 07/26/18 07:35 Dose: 1 tab Documented by: [id number] Admin: 07/25/18 07:11 Dose: 1 tab Documented by: [id number] Admin: 07/24/18 10:37 Dose: 1 tab Documented by: [id number] Potassium Chloride (Klor-Con Pwd) 20 meq PO DAILY RAMILA Stop: 08/23/18 08:59 Last Admin: 07/26/18 07:36 Dose: 20 meq Documented by: [id number] Admin: 07/25/18 07:14 Dose: 20 meq Documented by: [id number] Admin: 07/24/18 09:06 Dose: 20 meq Documented by: [id number] Prednisone (Prednisone) 5 mg PO DAILY RAMILA Stop: 08/23/18 08:59 Last Admin: 07/26/18 07:35 Dose: 5 mg Documented by: [id number] Admin: 07/25/18 07:13 Dose: 5 mg Documented by: [id number] Admin: 07/24/18 09:06 Dose: 5 mg Documented by: [id number] (1) UTI (urinary tract infection) Hematuria presence: without hematuria Urinary tract infection type: site unspecified Qualified Code(s): N39.0 - Urinary tract infection, site not specified
--- NOTE | 2018-07-26 14:27 | Palliative Care Consultation ---
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 Dr. Shoemaker performed left thoracentesis yesterday and removed 900ml, but fluid has reaccumulated today. Patient lives at home in an apartment with caregivers and a private duty nurse supportive employment case manager who helps patient coordinate care. Previously, patient had waiver service caregivers, but unfortunately she is over the financial limit to continue to receive these services. "Usha" (as she prefers to be called), has been seen by palliative care service now on four separate admissions to the hospital. She does not like being in hospital and does want to remain comfortable at home, however, in the past she was not ready for hospice care. The only family she has is one son, Patrick, from [place] who is in town. They are considering hospice care. Palliative care consulted. -Met with patient and her son Patrick in room [address] Ochoa. Patient is awake, alert and oriented x4. She is NEWTOK but has a sound box for hearing assistance. Patient is mildly SOB at rest but denies complaints. Her breathing is essentially at baseline. Patient states that she only came in because her caregivers were worried about her. She is ready to go home. -Discussed goals of care. Patient states she is definitely through with coming to the hospital and is ready to be at home. We talked about hospice care and what they provide. Patient and her son are in agreement they want home hospice care. Patient wants to remain at home indefinitely. She will have a life alert button for safety. Her private-pay supportive employment case manager, Mary Hayes, is working on cho osing a hospice agency and getting patient additional caregivers in the home. PT/OT are recommending SNF, but patient declines and wants to be at home. Her son is supportive of her decision as long as we get a safe discharge plan. -Once hospice agency is selected, can move towards getting patient home. -Dr. Shoemaker does not plan to place Pleur-x catheter. Not likely to re-tap left lung as the fluid reaccumulates almost immediately. -If SOB persists or worsens and patient is uncomfortable, low dose liquid morphine (Roxanol) would be helpful. Would start at 5mg PO/SL Q3h PRN pain or SOB. She currently denies anxiety, although this has been a problem in the past. -Will offer to complete a POLSt form on Sunday prior to patient going home (whenever that may be). She has declined doing a POLST form in the past. -SonPatrick, is POA. Patient gave permission for him and her supportive employment case manager, Mary, to know her information and coordinate her care. -Will continue to follow. (2) Chronic diastolic heart failure: (3) Recurrent left pleural effusion: (4) Acute respiratory failure with hypoxia: (5) COPD (chronic obstructive pulmonary disease): Supervising Physician Co-Signing Physician Notes I was personally present during the entire visit with patient, son, and AYLEEN Diaz Chart reviewed, patient seen and examined, case discussed with Dr. Shoemaker PE: Patient short of breath with conversation HEENT: EOMI, NEWTOK Respirations increased work of breathing at rest and with conversation CV: Appears well perfused Abdomen: Not distended Extremities: No edema Skin: Fragile Neuro: Alert and oriented x4 Agree with above note, assessment and plan as per AYLEEN Diaz Plan to coordinate patient's discharge and hospice referral with case management History of Present Illness Reason for Consultation: Goals of care Requesting Physician: Dr. 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 Dr. Shoemaker performed left thoracentesis yesterday and removed 900ml, but fluid has reaccumulated today. Patient lives at home in an apartment with caregivers and a private duty nurse supportive employment case manager who helps patient coordinate care. Previously, patient had waiver service caregivers, but unfortunately she is over the financial limit to continue to receive these services. "Usha" (as she prefers to be called), has been seen by palliative care service now on four separate admissions to the hospital. She does not like being in hospital and does want to remain comfortable at home, however, in the past she was not ready for hospice care. The only family she has is one son, Patrick, from [place] who is in town. They are considering hospice care. Palliative care consulted. Thank you kindly for this consult. I will follow as needed. Allergies Allergy/AdvReac Type Severity Reaction Status Date / Time clonidine Allergy Mild SHORTNESS Verified 10/02/17 14:53 OF BREATH amlodipine Allergy Unknown rash,dizzy/balance Verified 07/23/18 19:40 off Iodinated Contrast- Oral and Allergy Unknown "IT JUST Verified 10/02/17 14:53 IV Dye AFFECTS ME AND I CAN'T EXPLAIN IT" latex Allergy Unknown RASH Verified 10/02/17 14:53 Penicillins Allergy Unknown UNKNOWN Verified 10/02/17 14:53 Sulfa (Sulfonamide Allergy Unknown "SWELLING Verified 10/02/17 14:53 Antibiotics) IN MOUTH AND DRIED OUT" atenolol Allergy Rash/dizzy Verified 07/23/18 19:40 clarithromycin Allergy Rash Verified 07/23/18 19:40 gatifloxacin Allergy rash/dizzy/ Verified 07/23/18 19:40 lightheaded losartan Allergy rash/dizzy Verified 07/23/18 19:40 Home Medications Home Medications Medication Instructions Recorded Confirmed Type apixaban [Eliquis] 2.5 mg PO BID 07/23/18 07/23/18 History aspirin [Aspir-81] 81 mg PO DAILY 07/23/18 07/23/18 History digoxin [Digox] 125 mcg PO QPM 07/23/18 07/23/18 History fluocinolone acetonide oil 1 dose OTB UD PRN 07/23/18 07/23/18 History furosemide [Lasix] 80 mg PO DAILY 07/23/18 07/23/18 History ipratropium bromide 2 spray INTRANASAL TID PRN 07/23/18 07/23/18 History ipratropium-albuterol [Combivent 1 puff INHALATION TID 07/23/18 07/23/18 History Respimat] lactobacillus combination no.4 0 mmu cells PO DAILY 07/23/18 07/23/18 History [Probiotic] levalbuterol HCl [Xopenex] 1 dose INHALATION TID PRN 07/23/18 07/23/18 History levothyroxine 75 mcg PO DAILY 07/23/18 07/23/18 History metoprolol tartrate [Lopressor] 50 mg PO Q12 07/23/18 07/23/18 History multivitamin 1 tab PO DAILY 07/23/18 07/23/18 History potassium chloride 20 meq PO DAILY 07/23/18 07/23/18 History prednisone 5 mg PO DAILY 07/23/18 07/23/18 History travoprost [Travatan Z] 1 drp OPB HS 07/23/18 07/23/18 History Patient History Medical History COPD (chronic obstructive pulmonary disease) (Chronic) Anxiety (Chronic) Atrial fibrillation with RVR (Chronic) Social History Communication Ability: Effective Beliefs That Will Affect Care: None marital status: Current Living Situation: Alone Other Information That Helps Us Care for You: No Feels Safe at Home: Yes Safety Concerns: Feels Safe At This Time Smoking Status: Former smoker Hx Alcohol Use: No Hx Substance Use: No Review of Systems Constitutional: + weakness Ear, Nose, Mouth, Throat: + dry mouth; no dysphagia Respiratory: + cough and + dyspnea on exertion; no sputum production Cardiovascular: + edema (but is now resolved); no chest pain Gastrointestinal: no abdominal pain, no nausea and no vomiting fragile skin Neurologic: no confusion Psychiatric: no anxiety Physical Exam Vital Signs (Past 24 Hours): Last Vital Signs Temp 36.6 C 07/26/18 12:00 Pulse 65 07/26/18 12:00 Resp 20 07/26/18 12:00 BP 154/72 H 07/26/18 12:00 Pulse Ox 95 07/26/18 12:00 Constitutional: + ill appearing (chronically) and + thin; no acute distress ENMT: external ear and nose normal, oropharynx normal Ears: + hearing impairment Neck: normal visual inspection and trachea midline Respiratory: normal respiratory effort, lungs clear to auscultation Auscultation: + diminished lung sounds (throughout) Cardiovascular: Rate/Rhythm: regular rate Heart Sounds: + murmur Vessels: dorsalis pedis pulses present Extremities: no edema Gastrointestinal (Abdomen): normal bowel sounds, soft, nontender, no hepatosplenomegaly Skin: + ecchymosis Neurologic: awake; not confused Psychiatric: A+Ox3, euthymic affect Time Spent Midlevel 70 minutes with >50% of time spent at bedside with patient and son discussing condition, GOC, and plan of care.
--- NOTE | 2018-07-26 14:53 | Cardiology Progress Note ---
Date of Service July 26, 2018 Assessment & Plan (1) Acute respiratory failure with hypoxia: Mrs. Lane is an 88-year-old white female with a history of Chronic Atrial Fibrillation, Severe / Critical s/p TAVR 10/18/2016, Moderate Concentric LVH with Diastolic Dysfunction, Mild MR, Moderate TR, Severe Pulmonary Hypertension, Severe COPD, Chronic Respiratory Failure, and a history of Chronic Diastolic CHF who was admitted acutely to [facility] on 07/23/2018 with Acute on Chronic Hypoxic Respiratory Failure which appears to be predominantly related to her COPD, but may have a component of CHF contributing. -- Continue supplemental O2 -- Continue inhalers and nebulizers as directed. -- Continue oral prednisone. -- For future reference -- at onset of symptoms patient responds dramatically to Solu-Medrol 125 mg IV and Lasix 80 mg IV - each x 1 dose. Provided patient's oxygen saturations stay up, patient may be discharged to home tomorrow from a cardiac standpoint. Patient is stable from a cardiac standpoint for discharge to home. CARDIOLOGY FOLLOW UP with John Garvin PA-C on 08/09/2018 at 11:00 am. (2) Chronic diastolic heart failure: -- Continue Lasix at usual home dose. -- Continue KCL at usual home dose. -- Monitor daily weights. -- Continue Metoprolol at current dose. (3) Recurrent left pleural effusion: -- This is a chronic left pleural effusion which does not appear to be significantly worse than baseline. -- Thoracentesis was performed yesterday -- removing 900 ml of fluid from the left hemithorax. -- Continue treating underlying Diastolic CHF. (4) Elevated troponin: -- Secondary to myocardial O2 supply demand mismatch related to hypoxemia, COPD, and CHF. -- This does not appear to be an acute coronary syndrome. -- No further ischemic workup is necessary at this time. -- No significant CAD on cardiac catheterization 2016. (5) Permanent atrial fibrillation: -- Continue Metoprolol at current dose. -- Continue Digoxin 125 mcg daily. -- Continue Eliquis 2.5 mg bid for thromboembolic prophylaxis. Supervising Physician Co-Signing Physician Notes Terence Wilson MD Subjective Mrs. Lane is an 88-year-old white female with a history of Chronic Atrial F ibrillation, Severe / Critical s/p TAVR 10/18/2016, Moderate Concentric LVH with Diastolic Dysfunction, Mild MR, Moderate TR, Severe Pulmonary Hypertension, Severe COPD, Chronic Respiratory Failure, and a history of Chronic Diastolic CHF who was admitted acutely to [facility] on 07/23/2018 with Acute on Chronic Hypoxic Respiratory Failure which appears to be predominantly related to her COPD, but may have a component of CHF contributing. Patient underwent a thoracentesis yesterday for recurring pleural effusion -- removed 900 ml of fluid. Patient offers no complaints at the present time. She is sitting in a bedside chair and her breathing has improved. Also worked with PT earlier and her O2 saturations stayed above 90%. Patient denies any chest pain, heaviness, tightness, pressure, or discomfort. She denies any neck, jaw, back, or arm pain. Physical Exam Vital Signs (Past 24 Hours): Last Vital Signs Temp 36.6 C 07/26/18 12:00 Pulse 65 07/26/18 12:00 Resp 20 07/26/18 12:00 BP 154/72 H 07/26/18 12:00 Pulse Ox 95 07/26/18 12:00 Physical Exam: General: Patient in no acute distress. HEENT: Head is atraumatic, normocephalic. EOMs intact. Sclerae anicteric. Facies symmetric. No perioral cyanosis. Neck: No thyromegaly, adenopathy, or JVD. Carotid upstrokes +2 bilaterally without bruits. JVP is at the level of the clavicle sitting upright. Chest and Lungs: Increased breath sounds in left base, otherwise diminished breath sounds throughout, scattered late expiratory wheezes. CVS: S1 and S2 are irregularly irregular at a rate of 64 bpm, with a grade 1/6 basal mid systolic murmur which does not appear to radiate. Accentuated aortic valve closure sound. No diastolic murmurs appreciated. No gallops or rubs. PMI is nondisplaced. No lifts, heaves, or thrills. Abdominal Exam: Bowel sounds present. No masses, organomegaly, or tenderness. Extremities: No edema. No clubbing or cyanosis. Neurologic Exam: Patient is awake, alert, and interactive. Answers questions as she typically does. Speech is clear. Normal movement in all 4 extremities. Gait pattern - Not assessed. Results & Data Laboratory Results Laboratory Results - last 24 hr 07/25/18 07/25/18 07/25/18 18:55 Unknown Unknown WBC RBC Hgb Hct MCV MCH MCHC RDW Std Deviation RDW Coeff of Krish Plt Count MPV Immature Gran % (Auto) Neut % (Auto) Lymph % (Auto) Moody % (Auto) Eos % (Auto) Baso % (Auto) Immature Gran # (Auto) Neut # (Auto) Lymph # (Auto) Moody # (Auto) Eos # (Auto) Baso # (Auto) PT INR Sodium Potassium Chloride Carbon Dioxide Anion Gap BUN Creatinine Est Cr Clr Drug Dosing Est GFR ( Amer) Est GFR (Non-Af Amer) BUN/Creatinine Ratio Glucose Calcium Magnesium Total Bilirubin AST ALT Alkaline Phosphatase Lactate Dehydrogenase 335 H Total Protein Albumin Globulin Albumin/Globulin Ratio Pleural Fluid Source LEFT LUNG Pleural Color YELLOW Pleural Appearance CLEAR Pleural WBC 165 Pleural RBC < 3000 Pleural Polynuclear % 15.3 Pleural Mononuclear % 84.7 Pleural Total Protein 1.4 Pleural LDH 66 Pleural Glucose 173 Pleural Amylase 24 07/26/18 07/26/18 07/26/18 05:49 05:49 05:49 WBC 14.25 H RBC 5.43 H Hgb 17.4 H Hct 52.7 H MCV 97.1 MCH 32.0 MCHC 33.0 RDW Std Deviation 51.5 H RDW Coeff of Krish 14.7 H Plt Count 216 MPV 11.2 H Immature Gran % (Auto) 0.3 Neut % (Auto) 82.7 Lymph % (Auto) 6.7 Moody % (Auto) 8.8 Eos % (Auto) 1.4 Baso % (Auto) 0.1 Immature Gran # (Auto) 0.04 H Neut # (Auto) 11.79 H Lymph # (Auto) 0.96 L Moody # (Auto) 1.25 H Eos # (Auto) 0.20 Baso # (Auto) 0.01 PT 12.3 H INR 1.2 H Sodium 138 Potassium 3.7 Chloride 93 L Carbon Dioxide 40 H Anion Gap 5.0 BUN 18 Creatinine 0.92 Est Cr Clr Drug Dosing 30.9 Est GFR ( Amer) 64.9 Est GFR (Non-Af Amer) 56.0 BUN/Creatinine Ratio 19.2 Glucose 124 H Calcium 8.6 Magnesium 1.9 Total Bilirubin 1.2 H D AST 27 ALT 21 Alkaline Phosphatase 157 H Lactate Dehydrogenase Total Protein 6.5 Albumin 3.0 L Globulin 3.5 Albumin/Globulin Ratio 0.9 Pleural Fluid Source Pleural Color Pleural Appearance Pleural WBC Pleural RBC Pleural Polynuclear % Pleural Mononuclear % Pleural Total Protein Pleural LDH Pleural Glucose Pleural Amylase Medications Administered Active Medications Generic Name Dose Route Start Last Admin Trade Name Freq PRN Reason Stop Dose Admin Acetaminophen 1,000 mg 07/23/18 22:25 Ofirmev IV 08/22/18 22:24 Q8H PRN Pain or Fever Acetaminophen 650 mg 07/23/18 22:25 Tylenol PO 08/22/18 22:24 Q4H PRN Pain or Fever Al Hydrox/Mg Hydrox/Simethicone 15 ml 07/23/18 22:25 Maalox PO 08/22/18 22:24 Q4H PRN Dyspepsia Albuterol 1 puffs 07/24/18 09:00 07/25/18 22:05 Combivent Respimat INH 08/23/18 08:59 1 puffs TID RAMILA Administration Apixaban 2.5 mg 07/23/18 22:25 07/26/18 07:35 Eliquis PO 08/22/18 22:24 2.5 mg BID RAMILA Administration Aspirin 81 mg 07/24/18 09:00 07/26/18 07:35 Ecotrin Ectab PO 08/23/18 08:59 81 mg DAILY RAMILA Administration Budesonide 0.5 mg 07/24/18 08:00 07/26/18 07:25 Pulmicort Respules NEB 08/23/18 07:59 Not Given BIDR RAMILA Digoxin 0.125 mg 07/24/18 16:00 07/25/18 15:44 Lanoxin PO 08/23/18 15:59 0.125 mg DAILY@1600 RAMILA Administration Furosemide 80 mg 07/24/18 09:00 07/26/18 07:35 Lasix PO 08/23/18 08:59 80 mg DAILY RAMILA Administration Ceftriaxone Sodium 1,000 mg/ 50 mls @ 100 mls/hr 07/24/18 20:00 07/25/18 20:20 Dextrose IV 07/29/18 19:59 Infused Q24H RAMILA Infusion Protocol Levalbuterol HCl 1.25 mg 07/26/18 04:00 07/26/18 11:20 Xopenex 1.25mg/3ml Neb INH 08/25/18 03:59 1.25 mg Q4R RAMILA Administration Levothyroxine Sodium 75 mcg 07/24/18 06:30 07/26/18 05:37 Synthroid PO 08/23/18 06:29 75 mcg DAILYBB RAMILA Administration Magnesium Hydroxide 30 ml 07/23/18 22:25 Milk Of Magnesia PO 08/22/18 22:24 Q12H PRN Constipation Metoprolol Tartrate 50 mg 07/25/18 06:00 07/26/18 07:35 Lopressor PO 08/24/18 05:59 50 mg Q12 RAMILA Administration Miscellaneous 1 ea 07/24/18 00:00 07/26/18 06:56 Order Awaiting Action N/A 08/23/18 00:00 Not Given QS RAMILA Miscellaneous 1 ea 07/24/18 00:00 07/26/18 06:56 Order Awaiting Action N/A 08/23/18 00:00 Not Given QS RAMILA Multivitamins 1 tab 07/24/18 09:00 07/26/18 07:35 Multivitamin Tab PO 08/23/18 08:59 1 tab DAILY RAMILA Administration Ondansetron HCl 4 mg 07/23/18 22:25 Zofran IV 08/22/18 22:24 Q6H PRN NAUSEA/VOMITING Polyethylene Glycol 17 gm 07/25/18 20:56 Miralax Powder Packet PO 08/24/18 20:55 DAILY PRN Constipation Potassium Chloride 20 meq 07/24/18 09:00 07/26/18 07:36 Klor-Con Pwd PO 08/23/18 08:59 20 meq DAILY RAMILA Administration Prednisone 5 mg 07/24/18 09:00 07/26/18 07:35 Prednisone PO 08/23/18 08:59 5 mg DAILY RAMILA Administration
--- NOTE | 2018-07-26 15:09 | Progress Note ---
DATE: 07/26/2018 Ms. Lane was seen today. She stated that she did not "notice any difference" with a thoracentesis of 900 mL last night. I had a long talk with the patient and her son who is visiting from [place]. Her chest x-ray showed a trapped lung last night, this morning it is already essentially refilled with fluid. I am not concerned about a pneumothorax, but not really think the patient has one. The problem that we have is the patient has a trapped lung. In addition, she really is not a candidate for anything else. We discussed the PleurX catheter and of course surgery is also an option; however, I do not think she would tolerate either of these well. At this point, we would hold off offering her anything else and we will see how she looks. Unfortunately, she has multiple problems including advanced age and is extremely fragile. I am disappointed that her lung is trapped. Can be a difficult problem to deal with.
[2018-07-26] MEDS: DIGOXIN 0.125 MG TAB PO SCH (15:46)
[2018-07-26] MEDS: cefTRIAXone SODIUM 1,000 MG in DEXTROSE 5% 50 ML IV SCH (20:00)
[2018-07-26] MEDS: TRAVOPROST Z 0.004% OPH SOLN 2.5 ML BTL OPB SCH (20:41)
[2018-07-27] MEDS: LEVALBUTEROL HCL 1.25 MG/3 ML NEB INH SCH ×7 (03:08→22:26)
[2018-07-27] MEDS: LEVOTHYROXINE SODIUM 75 MCG TABLET PO SCH (06:04)
[2018-07-27] MEDS: BUDESONIDE 0.5 MG/2 ML VIAL (PULMICORT) NEB SCH (07:15)
[2018-07-27 08:05] LABS: Basophils # (auto) 0.02 K/uL (0-0.2); Basophils % (auto) 0.2 %; Eosinophils # (auto) 0.44 K/uL (0-0.5); Eosinophils % (auto) 3.9 %; Hemoglobin 15.5 g/dL (12.0-16.0); Immature Granulocytes # (auto) 0.02 K/uL (0.00-0.02); Immature Granulocytes % (auto) 0.2 %; Lymphocytes # (auto) 1.34 K/uL (1.2-3.4); Mean Corpuscular Hgb Conc 32.3 g/dL (32-36); Mean Platelet Volume 11.3 fL (7.4-10.4); Monocytes # (auto) 1.44 K/uL (0.11-0.59); Monocytes % (auto) 12.9 %; Neutrophils # (auto) 7.94 K/uL (1.4-6.5); Neutrophils % (auto) 70.8 %; Platelet Count 193 K/uL (130-400); RDW Coefficient of Variation 14.6 % (11.5-14.5); RDW Standard Deviation 51.8 fL (36.4-46.3); Red Blood Count 4.95 M/uL (4.2-5.4)
[2018-07-27 08:21] LABS: BUN Creatinine Ratio 23.6 (10-20); Calcium 8.3 mg/dl (8.5-10.1); Creatinine Clr Calc Pharmacy 49.1 ml/min; Est GFR (African American) 96.1; Est GFR (Non-African American) 82.9; Magnesium 1.9 mg/dl (1.8-2.4); Potassium 3.4 mmol/L (3.5-5.1)
[2018-07-27] MEDS: MULTIVITAMIN TAB PO SCH (08:53)
[2018-07-27] MEDS: METOPROLOL TARTRATE 50 MG TAB PO SCH ×2 (08:53→19:04)
[2018-07-27] MEDS: predniSONE 5 MG TAB PO SCH (08:53)
[2018-07-27] MEDS: FUROSEMIDE 80 MG TAB PO SCH (08:53)
[2018-07-27] MEDS: APIXABAN 2.5 MG TAB PO SCH ×2 (08:53→19:04)
[2018-07-27] MEDS: POTASSIUM CHLORIDE PWD 20 MEQ PACK PO SCH (08:53)
[2018-07-27] MEDS: ASPIRIN 81 MG ECTAB PO SCH (08:53)
--- NOTE | 2018-07-27 10:33 | Progress Note ---
DATE: 07/27/2018 [address] was seen today on 07/27/2018. She states that she is "really gasping for breath" this morning. She has markedly decreased breath sounds throughout. She states that her breathing gets worse every time she eats, but she does not cough and did not appear to be aspirating. Anisa Lane would be 89 in January. She is frail and I believe is approaching her end of life. We had a the adelia discussion about this today. She is seeing palliative medicine. At this point, I would not be aggressive with any intervention and she is agreeable. JOSELINE
--- NOTE | 2018-07-27 14:18 | Family Medicine Progress Note ---
Date of Service July 27, 2018 Assessment & Plan (1) Acute respiratory failure with hypoxia: Admission Differential includes acute exacerbation of CHF vs. acute COPD exacerbation vs. acute on chronic left pleural effusion In ED on 07/23: CXR performed showed cardiomegaly and advanced emphysema with no radiographic evidence of congestive failure and small to moderate left pleural effusion with associated left basilar consolidation that has not significantly changed from study on 07/15/18. Repeat CXR this morning 07/25: Radiology report - unchanged size of moderate left pleural effusion; stable to slight increase in left basilar atelectasis. Will await Dr. Shoemaker's thoughts on thoracentesis. Continue with Xopenex 1.25mg QID PRN Continue with Pred 5mg PO -On Rocephin 1gm on Day 4, treating potential UTI and will continue as providing respiratory coverage for possible underlying pneumonia process also noted is on chronic pred, immunosuppression. -procalcitonin ordered was within normal limits. -Has remained afebrile WBC still elevated 07/25 11.83 which is same value as on ED presentation. -07/24 elevated to 14.25. But increase in CBC values WBC, RBC, Hgb, Hct - blood appears more concentrated this morning and elevation could be related to this. Today 07/25 has improved to 11.20. (2) Recurrent left pleural effusion: In ED - Received albumin 25 g with furosemide 40 mg IV x1. Patient's baseline oxygen is 4 L at home, but had been increased to [address] ED[address] Dr. Shoemaker consulted, whom she follow with in outpatient office regarding the pleural effusion. - performed thoracentesis last night. - there was concern for pneumothorax following procedure, but Dr. 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 - fluid re-accumulated this morning on follow up CXR. - Patient not a great candidate for treatment options of PleurX cath or surgery as she would most likely not tolerate procedures. - Will be difficult to treat - Negative for lights criteria and considered transudative process. Palliative care consult was placed and palliative care did discuss disposition options with amadou and Usha. She is able to be discharged from hospital as unfortunately there are no further interventions to reverse her advanced lung disease. Patient could benefit from Morphine for air hunger as she has intermittent episodes of accessory muscle use and anxiety. However, patient is difficult to treat with medications because she declines recommendations. (3) Acute exacerbation of CHF (congestive heart failure): As above. (4) Elevated troponin: Trops elevated 0.047 -> 0.060 -> 0.063 -suspect from demand ischemia from hypoxia, values considered pleateau with no need for further trops Continue apixaban 2.5 mg p.o. twice daily, aspirin 81 mg daily, digoxin 1.5 mcg p.o. every afternoon, metoprolol tartrate 50 mg p.o. every 12 hours and potassium chloride 20 mg once p.o. daily. cardiology consulted and recommendations to continue current treatments. John Garvin PA-C, knows the patient well, and noted that onset of symptoms patient responds dramatically to Solu-Medrol 125 mg IV and Lasix 80 mg IV - each x 1 dose. However, patient declines further Prednisone use outside of her current PO taper. (5) COPD (chronic obstructive pulmonary disease): COPD exacerbation- Xopenex nebulizers to 4 times daily. Budesonide 0.5 mg Neb BID scheduled - will discontinue as patient is declining treatments. Patient is concerned about side effects of prednisone, was on chronically and trying to taper off (several month taper), was on prednisone 5 mg daily, and will continue. Does not want IV pred. (6) UTI (urinary tract infection): Placed on ceftriaxone 1 g IV daily to cover urine and pulmonary issues. Day 4. Urine culture showed pinpoint growth - reincubation on 07/25 - Today resulted showing mod growth of skin chen (7) Recurrent falls: Multifactorial generalized deconditioning, CHF exacerbation, COPD exacerbation, hypoxia, failure to thrive Her physical activity significantly limited by her oxygenation status. She desats with conversation so likely does with any exertion. PT and OT evals ordered (8) Hypomagnesemia: 07/25 1.7 treated with Mag Ox 400mg PO 07/26 - 1.9 WNL Today - 1.9 WNL Will monitor and replace as indicated. Supervising Physician Co-Signing Physician Notes Patient seen and examined with the resident. Agree with history, physical exam, assessment and plan with the following updates/corrections: 88yo F w/ hx of CHF and COPD who presents with shortness of breath. Today, she is very short of breath. Upset about waiting for her Xopenex for 1/2 hour. 1) End-stage COPD - Severe, chronic hypoxemic respiratory failure from COPD. O2 dependant at 4-6L NC at home. Will stop ceftriaxone, but continue her home prednisone. Continue inhalers. S/p thoracentesis on 07/25, but the pleural effusion re-accumulated within a day. Plan for home hospice on Sunday. Will attempt benzo to improve anxiety. 2) Acute on chronic diastolic CHF (acute on chronic HFpEF) - Given Lasix and albumin by admitting physician; now on her home dosing of 80mg PO daily. Will monitor weights and I&Os. She does not have any weights documented as outpatient, because she has refused in the office. At present, low concern for further CHF exacerbation. 3) Demand ischemia in setting of acute on chronic respiratory failure, COPD exacerbation and acute diastolic CHF. - Troponins low and stable; no major concerns at present for acute thrombotic event. Subjective Anisa was refusing her budesonide 0.5mg Neb treatments as she does not want that medication. She states her shortness of breath is at baseline, with intermittent complaints of worsening shortness of breath where she requests Xopenex treatments. She has been difficult with nursing and respiratory care. However, she has been pleasant with me during stay. She is denying IV or increase in her daily PO Prednisone. Physical Exam Vital Signs (Past 24 Hours): Last Vital Signs Temp 36.8 C 07/27/18 12:26 Pulse 76 07/27/18 12:26 Resp 22 07/27/18 12:26 BP 176/65 H 07/27/18 13:05 Pulse Ox 95 07/27/18 12:26 Constitutional: + thin and + frail appearing Eyes: + anicteric sclerae and EOM intact bilaterally Neck: normal visual inspection Respiratory: + uses accessory muscles and + prolonged expiratory phase Auscultation: + diminished lung sounds Cardiovascular: Rate/Rhythm: regular rate; + abnormal rhythm (irregularly irregular) Extremities: no pedal edema Gastrointestinal (Abdomen): Percussion/Palpation: abdomen soft; abdomen nontender Musculoskeletal: Head/Neck/Chest: normocephalic and head atraumatic Neurologic: moves all extremities and awake Psychiatric: Orientation: alert and oriented x 3 Mood: + anxious mood Results & Data Laboratory Results Laboratory Results - last 24 hr 07/27/18 07/27/18 07:26 07:26 WBC 11.20 H RBC 4.95 Hgb 15.5 Hct 48.0 H MCV 97.0 MCH 31.3 MCHC 32.3 RDW Std Deviation 51.8 H RDW Coeff of Krish 14.6 H Plt Count 193 MPV 11.3 H Immature Gran % (Auto) 0.2 Neut % (Auto) 70.8 Lymph % (Auto) 12.0 Hardin % (Auto) 12.9 Eos % (Auto) 3.9 Baso % (Auto) 0.2 Immature Gran # (Auto) 0.02 Neut # (Auto) 7.94 H Lymph # (Auto) 1.34 Hardin # (Auto) 1.44 H Eos # (Auto) 0.44 Baso # (Auto) 0.02 Sodium 138 Potassium 3.4 L Chloride 94 L Carbon Dioxide 38 H Anion Gap 6.0 BUN 14 Creatinine 0.58 L D Est Cr Clr Drug Dosing 49.1 Est GFR ( Amer) 96.1 Est GFR (Non-Af Amer) 82.9 BUN/Creatinine Ratio 23.6 H Glucose 103 H Calcium 8.3 L Magnesium 1.9 Medications Administered Albuterol (Combivent Respimat) 1 puffs INH TID RAMILA Stop: 08/23/18 08:59 Last Admin: 07/25/18 22:05 Dose: 1 puffs Documented by: [id number] Admin: 07/25/18 14:31 Dose: 1 puffs Documented by: [id number] Admin: 07/25/18 07:11 Dose: 1 puffs Documented by: [id number] Admin: 07/24/18 20:20 Dose: 1 puffs Documented by: [id number] Admin: 07/24/18 14:22 Dose: 1 puffs Documented by: [id number] Admin: 07/24/18 09:00 Dose: 1 puffs Documented by: [id number] Apixaban (Eliquis) 2.5 mg PO BID [facility] Stop: 08/22/18 22:24 Last Admin: 07/27/18 08:53 Dose: 2.5 mg Documented by: [id number] Admin: 07/26/18 20:41 Dose: 2.5 mg Documented by: [id number] Admin: 07/26/18 07:35 Dose: 2.5 mg Documented by: [id number] Admin: 07/25/18 22:04 Dose: 2.5 mg Documented by: [id number] Admin: 07/25/18 09:28 Dose: 2.5 mg Documented by: [id number] Admin: 07/24/18 20:21 Dose: 2.5 mg Documented by: [id number] Admin: 07/24/18 09:06 Dose: 2.5 mg Documented by: [id number] Admin: 07/24/18 00:10 Dose: 2.5 mg Documented by: [id number] Aspirin (Ecotrin Ectab) 81 mg PO DAILY RAMILA Stop: 08/23/18 08:59 Last Admin: 07/27/18 08:53 Dose: 81 mg Documented by: [id number] Admin: 07/26/18 07:35 Dose: 81 mg Documented by: [id number] Admin: 07/25/18 07:16 Dose: 81 mg Documented by: [id number] Admin: 07/24/18 09:05 Dose: 81 mg Documented by: [id number] Digoxin (Lanoxin) 0.125 mg PO DAILY@1600 RAMILA Stop: 08/23/18 15:59 Last Admin: 07/26/18 15:46 Dose: 0.125 mg Documented by: [id number] Admin: 07/25/18 15:44 Dose: 0.125 mg Documented by: [id number] Admin: 07/24/18 16:23 Dose: 0.125 mg Documented by: [id number] Furosemide (Lasix) 80 mg PO DAILY [facility] Stop: 08/23/18 08:59 Last Admin: 07/27/18 08:53 Dose: 80 mg Documented by: [id number] Admin: 07/26/18 07:35 Dose: 80 mg Documented by: [id number] Admin: 07/25/18 07:13 Dose: 80 mg Documented by: [id number] Admin: 07/24/18 09:06 Dose: 80 mg Documented by: [id number] Ceftriaxone Sodium 1,000 mg/ (Dextrose) 50 mls @ 100 mls/hr IV Q24H RAMILA; Protocol Stop: 07/29/18 19:59 Last Infusion: 07/26/18 20:42 Dose: 0 mls/hr Documented by: [id number] Admin: 07/26/18 20:00 Dose: 100 mls/hr Documented by: [id number] Infusion: 07/25/18 20:20 Dose: 0 mls/hr Documented by: [id number] Admin: 07/25/18 19:44 Dose: 100 mls/hr Documented by: [id number] Infusion: 07/24/18 21:06 Dose: 0 mls/hr Documented by: [id number] Admin: 07/24/18 20:17 Dose: 100 mls/hr Documented by: [id number] Levalbuterol HCl (Xopenex 1.25mg/3ml Neb) 1.25 mg INH Q4R RAMILA Stop: 08/25/18 03:59 Last Admin: 07/27/18 10:49 Dose: 1.25 mg Documented by: [id number] Admin: 07/27/18 07:16 Dose: 1.25 mg Documented by: [id number] Admin: 07/27/18 03:08 Dose: 1.25 mg Documented by: [id number] Admin: 07/26/18 23:32 Dose: 1.25 mg Documented by: [id number] Admin: 07/26/18 19:13 Dose: 1.25 mg Documented by: [id number] Admin: 07/26/18 15:36 Dose: 1.25 mg Documented by: [id number] Admin: 07/26/18 11:20 Dose: 1.25 mg Documented by: [id number] Admin: 07/26/18 07:24 Dose: 1.25 mg Documented by: [id number] Admin: 07/26/18 05:50 Dose: 1.25 mg Documented by: [id number] Admin: 07/26/18 03:42 Dose: 1.25 mg Documented by: [id number] Levothyroxine Sodium (Synthroid) 75 mcg PO DAILYBB RAMILA Stop: 08/23/18 06:29 Last Admin: 07/27/18 06:04 Dose: 75 mcg Documented by: [id number] Admin: 07/26/18 05:37 Dose: 75 mcg Documented by: [id number] Admin: 07/25/18 05:38 Dose: 75 mcg Documented by: [id number] Admin: 07/24/18 06:06 Dose: 75 mcg Documented by: [id number] Metoprolol Tartrate (Lopressor) 50 mg PO Q12 RAMILA Stop: 08/24/18 05:59 Last Admin: 07/27/18 08:53 Dose: 50 mg Documented by: [id number] Admin: 07/26/18 20:41 Dose: 50 mg Documented by: [id number] Admin: 07/26/18 07:35 Dose: 50 mg Documented by: [id number] Admin: 07/25/18 22:04 Dose: 50 mg Documented by: [id number] Admin: 07/25/18 05:38 Dose: 50 mg Documented by: [id number] Miscellaneous (Order Awaiting Action) 1 ea N/A QS RAMILA Stop: 08/23/18 00:00 Last Admin: 07/27/18 07:21 Dose: Not Given Documented by: [id number] Admin: 07/27/18 03:37 Dose: Not Given Documented by: [id number] Admin: 07/26/18 15:44 Dose: Not Given Documented by: [id number] Admin: 07/26/18 06:56 Dose: Not Given Documented by: [id number] Admin: 07/26/18 01:05 Dose: Not Given Documented by: [id number] Admin: 07/25/18 15:44 Dose: Not Given Documented by: [id number] Admin: 07/25/18 07:10 Dose: Not Given Documented by: [id number] Admin: 07/25/18 01:59 Dose: Not Given Documented by: [id number] Admin: 07/24/18 16:23 Dose: Not Given Documented by: [id number] Admin: 07/24/18 09:05 Dose: Not Given Documented by: [id number] Admin: 07/24/18 02:47 Dose: Not Given Documented by: [id number] Miscellaneous (Order Awaiting Action) 1 ea N/A QS RAMILA Stop: 08/23/18 00:00 Last Admin: 07/27/18 07:21 Dose: Not Given Documented by: [id number] Admin: 07/27/18 03:37 Dose: Not Given Documented by: [id number] Admin: 07/26/18 15:44 Dose: Not Given Documented by: [id number] Admin: 07/26/18 06:56 Dose: Not Given Documented by: [id number] Admin: 07/26/18 01:06 Dose: Not Given Documented by: [id number] Admin: 07/25/18 17:03 Dose: Not Given Documented by: [id number] Admin: 07/25/18 07:10 Dose: Not Given Documented by: [id number] Admin: 07/25/18 01:59 Dose: Not Given Documented by: [id number] Admin: 07/24/18 16:23 Dose: Not Given Documented by: [id number] Admin: 07/24/18 09:05 Dose: Not Given Documented by: [id number] Admin: 07/24/18 02:47 Dose: Not Given Documented by: [id number] Multivitamins (Multivitamin Tab) 1 tab PO DAILY RAMILA Stop: 08/23/18 08:59 Last Admin: 07/27/18 08:53 Dose: 1 tab Documented by: [id number] Admin: 07/26/18 07:35 Dose: 1 tab Documented by: [id number] Admin: 07/25/18 07:11 Dose: 1 tab Documented by: [id number] Admin: 07/24/18 10:37 Dose: 1 tab Documented by: [id number] Potassium Chloride (Klor-Con Pwd) 20 meq PO DAILY RAMILA Stop: 08/23/18 08:59 Last Admin: 07/27/18 08:53 Dose: 20 meq Documented by: [id number] Admin: 07/26/18 07:36 Dose: 20 meq Documented by: [id number] Admin: 07/25/18 07:14 Dose: 20 meq Documented by: [id number] Admin: 07/24/18 09:06 Dose: 20 meq Documented by: [id number] Prednisone (Prednisone) 5 mg PO DAILY RAMILA Stop: 08/23/18 08:59 Last Admin: 07/27/18 08:53 Dose: 5 mg Documented by: [id number] Admin: 07/26/18 07:35 Dose: 5 mg Documented by: [id number] Admin: 07/25/18 07:13 Dose: 5 mg Documented by: [id number] Admin: 07/24/18 09:06 Dose: 5 mg Documented by: [id number] (1) UTI (urinary tract infection) Hematuria presence: without hematuria Urinary tract infection type: site unspecified Qualified Code(s): N39.0 - Urinary tract infection, site not specified
[2018-07-27] MEDS ORDERED: LEVALBUTEROL 0.31MG/3 ML VIAL NEB PRN (14:36)
[2018-07-27] MEDS ORDERED: LORazepam 0.5 MG TAB PO PRN (14:46)
[2018-07-27] MEDS: DIGOXIN 0.125 MG TAB PO SCH (16:22)
[2018-07-27] MEDS: LORazepam 0.5 MG TAB SL PRN (19:04)
[2018-07-27] MEDS ORDERED: BUDESONIDE 0.5 MG/2 ML VIAL (PULMICORT) NEB SCH (20:00)
[2018-07-27] MEDS: TRAVOPROST Z 0.004% OPH SOLN 2.5 ML BTL OPB SCH (22:06)
[2018-07-28] MEDS: LEVALBUTEROL HCL 1.25 MG/3 ML NEB INH SCH ×11 (00:24→21:58)
[2018-07-28] MEDS: LEVOTHYROXINE SODIUM 75 MCG TABLET PO SCH (06:10)
--- NOTE | 2018-07-28 06:56 | Family Medicine Progress Note ---
Date of Service July 28, 2018 Assessment & Plan (1) Acute respiratory failure with hypoxia: Admission Differential includes acute exacerbation of CHF vs. acute COPD exacerbation vs. acute on chronic left pleural effusion. In ED on 07/23: CXR performed showed cardiomegaly and advanced emphysema with no radiographic evidence of congestive failure and small to moderate left pleural effusion with associated left basilar consolidation that has not significantly changed from study on 07/15/18. Repeat CXR on 07/25: Radiology report - unchanged size of moderate left pleural effusion; stable to slight increase in left basilar atelectasis. Continue with Xopenex 1.25mg QID scheduled and PRN Continue with Pred 5mg PO -Treated with Rocephin 1mg IV for 3 days, treated potential UTI and will continue as providing respiratory coverage for possible underlying pneumonia process also noted is on chronic pred, immunosuppression. -procalcitonin ordered was within normal limits. -Has remained afebrile WBC still elevated 07/25 11.83 which is same value as on ED presentation. -07/24 elevated to 14.25. But increase in CBC values WBC, RBC, Hgb, Hct - blood appears more concentrated this morning and elevation could be related to this. 07/25 has improved to 11.20. 07/26 elevated to 14.25 07/27 improved to 11.20 Is refusing blood draw today, will discontinue blood draw labs since plan is for home hospice with hopes of discharge tomorrow. (2) Recurrent left pleural effusion: In ED - Received albumin 25 g with furosemide 40 mg IV x1. Patient's baseline oxygen is 4 L at home, but had been increased to 6 L in the ED[address] Dr. Shoemaker consulted, whom she follow with in outpatient office regarding the pleural effusion. - performed thoracentesis last night. - there was concern for pneumothorax following procedure, but Dr. 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 - fluid re-accumulated this morning on follow up CXR. - Patient not a great candidate for treatment options of PleurX cath or surgery as she would most likely not tolerate procedures. - Will be difficult to treat - Negative for lights criteria and considered transudative process. Palliative care consult was placed and palliative care did discuss disposition options with son and Usha. She is able to be discharged from hospital as unfortunately there are no further interventions to reverse her advanced lung disease. Patient could benefit from Morphine for air hunger as she has intermittent episodes of accessory muscle use and anxiety. However, patient is difficult to treat with medications because she declines recommendations. She and son agreed to try very small dose of Ativan for acute dyspnea/anxiety as she does not want Morphine. 0.25mg of Ativan ordered, review of chart appears she did receive dose last night at 7pm. (3) Acute exacerbation of CHF (congestive heart failure): As above. (4) Elevated troponin: Trops elevated 0.047 -> 0.060 -> 0.063 -suspect from demand ischemia from hypoxia, values considered pleateau with no need for further trops Continue apixaban 2.5 mg p.o. twice daily, aspirin 81 mg daily, digoxin 1.5 mcg p.o. every afternoon, metoprolol tartrate 50 mg p.o. every 12 hours and potassium chloride 20 mg once p.o. daily. cardiology consulted and recommendations to continue current treatments. John Garvin PA-C, knows the patient well, and noted that onset of symptoms patient responds dramatically to Solu-Medrol 125 mg IV and Lasix 80 mg IV - each x 1 dose. However, patient declines further Prednisone use outside of her current PO taper. (5) COPD (chronic obstructive pulmonary disease): COPD exacerbation- Xopenex nebulizers to 4 times daily. Budesonide 0.5 mg Neb BID scheduled - will discontinue as patient is declining treatments. Patient is concerned about side effects of prednisone, was on chronically and trying to taper off (several month taper), was on prednisone 5 mg daily, and will continue. Does not want IV pred. (6) UTI (urinary tract infection): Placed on ceftriaxone 1 g IV daily to cover urine and pulmonary issues with 3 days of coverage given. Urine culture showed pinpoint growth - reincubation on 07/25 - Today resulted showing mod growth of skin chen (7) Recurrent falls: Multifactorial generalized deconditioning, CHF exacerbation, COPD exacerbation, hypoxia, failure to thrive Her physical activity significantly limited by her oxygenation status. She desats with conversation so likely does with any exertion. PT and OT evals ordered (8) Hypomagnesemia: 07/25 1.7 treated with Mag Ox 400mg PO 07/26 - 1.9 WNL Today - 1.9 WNL Will not monitor as she does not want further lab work Supervising Physician Co-Signing Physician Notes Patient seen and examined with the resident. Agree with history, physical exam, assessment and plan with the following updates/corrections: 88yo F w/ hx of CHF and COPD who presents with shortness of breath. Today, she is much better. Feels better than she has recently. 1) End-stage COPD - Severe, chronic hypoxemic respiratory failure from COPD. O2 dependant at 4-6L NC at home. Stopped ceftriaxone, but continue her home prednisone. Continue inhalers. S/p thoracentesis on 07/25, but the pleural effusion re-accumulated within a day. Plan for home hospice on Sunday. 2) Acute on chronic diastolic CHF (acute on chronic HFpEF) - Given Lasix and albumin by admitting physician; now on her home dosing of 80mg PO daily. Will monitor weights and I&Os. She does not have any weights documented as outpatient, because she has refused in the office. At present, low concern for further CHF exacerbation. Weight stable at ~45kg over the last few days. 3) Demand ischemia in setting of acute on chronic respiratory failure, COPD exacerbation and acute diastolic CHF. - Troponins low and stable; no major concerns at present for acute thrombotic event. Isaac Kerr is more comfortable today and able to get more sleep this morning. No acute events overnight. No acute concerns. Plan is for home hospice. Physical Exam Vital Signs (Past 24 Hours): Last Vital Signs Temp 36.6 C 07/28/18 03:57 Pulse 77 07/28/18 05:49 Resp 22 07/28/18 05:49 BP 163/83 H 07/28/18 03:57 Pulse Ox 94 07/28/18 05:49 Constitutional: + thin and + frail appearing Eyes: + anicteric sclerae and EOM intact bilaterally Neck: normal visual inspection Respiratory: + prolonged expiratory phase Auscultation: + diminished lung sounds Cardiovascular: Rate/Rhythm: regular rate; + abnormal rhythm (irregularly irregular) Extremities: no pedal edema Gastrointestinal (Abdomen): Percussion/Palpation: abdomen soft; abdomen nontender Musculoskeletal: Head/Neck/Chest: normocephalic and head atraumatic Neurologic: moves all extremities and awake Psychiatric: Orientation: alert and oriented x 3 Mood: + anxious mood Results & Data Medications Administered Albuterol (Combivent Respimat) 1 puffs INH TID RAMILA Stop: 08/23/18 08:59 Last Admin: 07/25/18 22:05 Dose: 1 puffs Documented by: [id number] Admin: 07/25/18 14:31 Dose: 1 puffs Documented by: [id number] Admin: 07/25/18 07:11 Dose: 1 puffs Documented by: [id number] Admin: 07/24/18 20:20 Dose: 1 puffs Documented by: [id number] Admin: 07/24/18 14:22 Dose: 1 puffs Documented by: [id number] Admin: 07/24/18 09:00 Dose: 1 puffs Documented by: [id number] Apixaban (Eliquis) 2.5 mg PO BID RAMILA Stop: 08/22/18 22:24 Last Admin: 07/28/18 08:56 Dose: 2.5 mg Documented by: [id number] Admin: 07/27/18 19:04 Dose: 2.5 mg Documented by: [id number] Admin: 07/27/18 08:53 Dose: 2.5 mg Documented by: [id number] Admin: 07/26/18 20:41 Dose: 2.5 mg Documented by: [id number] Admin: 07/26/18 07:35 Dose: 2.5 mg Documented by: [id number] Admin: 07/25/18 22:04 Dose: 2.5 mg Documented by: [id number] Admin: 07/25/18 09:28 Dose: 2.5 mg Documented by: [id number] Admin: 07/24/18 20:21 Dose: 2.5 mg Documented by: [id number] Admin: 07/24/18 09:06 Dose: 2.5 mg Documented by: [id number] Admin: 07/24/18 00:10 Dose: 2.5 mg Documented by: [id number] Aspirin (Ecotrin Ectab) 81 mg PO DAILY RAMILA Stop: 08/23/18 08:59 Last Admin: 07/28/18 08:56 Dose: 81 mg Documented by: [id number] Admin: 07/27/18 08:53 Dose: 81 mg Documented by: [id number] Admin: 07/26/18 07:35 Dose: 81 mg Documented by: [id number] Admin: 07/25/18 07:16 Dose: 81 mg Documented by: [id number] Admin: 07/24/18 09:05 Dose: 81 mg Documented by: [id number] Digoxin (Lanoxin) 0.125 mg PO DAILY@1600 RAMILA Stop: 08/23/18 15:59 Last Admin: 07/27/18 16:22 Dose: 0.125 mg Documented by: [id number] Admin: 07/26/18 15:46 Dose: 0.125 mg Documented by: [id number] Admin: 07/25/18 15:44 Dose: 0.125 mg Documented by: [id number] Admin: 07/24/18 16:23 Dose: 0.125 mg Documented by: [id number] Furosemide (Lasix) 80 mg PO DAILY RAMILA Stop: 08/23/18 08:59 Last Admin: 07/28/18 08:56 Dose: 80 mg Documented by: [id number] Admin: 07/27/18 08:53 Dose: 80 mg Documented by: [id number] Admin: 07/26/18 07:35 Dose: 80 mg Documented by: [id number] Admin: 07/25/18 07:13 Dose: 80 mg Documented by: [id number] Admin: 07/24/18 09:06 Dose: 80 mg Documented by: [id number] Levalbuterol HCl (Xopenex 1.25mg/3ml Neb) 1.25 mg INH Q4R RAMILA Stop: 08/25/18 03:59 Last Admin: 07/28/18 11:08 Dose: 1.25 mg Documented by: [id number] Admin: 07/28/18 09:07 Dose: 1.25 mg Documented by: [id number] Admin: 07/28/18 06:59 Dose: 1.25 mg Documented by: [id number] Admin: 07/28/18 05:49 Dose: 1.25 mg Documented by: [id number] Admin: 07/28/18 03:48 Dose: 1.25 mg Documented by: [id number] Admin: 07/28/18 00:24 Dose: 1.25 mg Documented by: [id number] Admin: 07/27/18 22:26 Dose: 1.25 mg Documented by: [id number] Admin: 07/27/18 20:31 Dose: 1.25 mg Documented by: [id number] Admin: 07/27/18 18:31 Dose: 1.25 mg Documented by: [id number] Admin: 07/27/18 15:25 Dose: 1.25 mg Documented by: [id number] Admin: 07/27/18 10:49 Dose: 1.25 mg Documented by: [id number] Admin: 07/27/18 07:16 Dose: 1.25 mg Documented by: [id number] Admin: 07/27/18 03:08 Dose: 1.25 mg Documented by: [id number] Admin: 07/26/18 23:32 Dose: 1.25 mg Documented by: [id number] Admin: 07/26/18 19:13 Dose: 1.25 mg Documented by: [id number] Admin: 07/26/18 15:36 Dose: 1.25 mg Documented by: [id number] Admin: 07/26/18 11:20 Dose: 1.25 mg Documented by: [id number] Admin: 07/26/18 07:24 Dose: 1.25 mg Documented by: [id number] Admin: 07/26/18 05:50 Dose: 1.25 mg Documented by: [id number] Admin: 07/26/18 03:42 Dose: 1.25 mg Documented by: [id number] Levothyroxine Sodium (Synthroid) 75 mcg PO DAILYBB RAMILA Stop: 08/23/18 06:29 Last Admin: 07/28/18 06:10 Dose: 75 mcg Documented by: [id number] Admin: 07/27/18 06:04 Dose: 75 mcg Documented by: [id number] Admin: 07/26/18 05:37 Dose: 75 mcg Documented by: [id number] Admin: 07/25/18 05:38 Dose: 75 mcg Documented by: [id number] Admin: 07/24/18 06:06 Dose: 75 mcg Documented by: [id number] Lorazepam (Ativan) 0.25 mg SL Q6H PRN PRN Reason: Anxiety, agitation, or shortness of breath Stop: 08/26/18 15:14 Last Admin: 07/27/18 19:04 Dose: 0.25 mg Documented by: [id number] Metoprolol Tartrate (Lopressor) 50 mg PO Q12 RAMILA Stop: 08/24/18 05:59 Last Admin: 07/28/18 08:56 Dose: 50 mg Documented by: [id number] Admin: 07/27/18 19:04 Dose: 50 mg Documented by: [id number] Admin: 07/27/18 08:53 Dose: 50 mg Documented by: [id number] Admin: 07/26/18 20:41 Dose: 50 mg Documented by: [id number] Admin: 07/26/18 07:35 Dose: 50 mg Documented by: [id number] Admin: 07/25/18 22:04 Dose: 50 mg Documented by: [id number] Admin: 07/25/18 05:38 Dose: 50 mg Documented by: [id number] Ubaldo (Order Awaiting Action) 1 ea N/A QS RAMILA Stop: 08/23/18 00:00 Last Admin: 07/28/18 07:01 Dose: Not Given Documented by: [id number] Admin: 07/28/18 00:31 Dose: Not Given Documented by: [id number] Admin: 07/27/18 16:22 Dose: Not Given Documented by: [id number] Admin: 07/27/18 07:21 Dose: Not Given Documented by: [id number] Admin: 07/27/18 03:37 Dose: Not Given Documented by: [id number] Admin: 07/26/18 15:44 Dose: Not Given Documented by: [id number] Admin: 07/26/18 06:56 Dose: Not Given Documented by: [id number] Admin: 07/26/18 01:05 Dose: Not Given Documented by: [id number] Admin: 07/25/18 15:44 Dose: Not Given Documented by: [id number] Admin: 07/25/18 07:10 Dose: Not Given Documented by: [id number] Admin: 07/25/18 01:59 Dose: Not Given Documented by: [id number] Admin: 07/24/18 16:23 Dose: Not Given Documented by: [id number] Admin: 07/24/18 09:05 Dose: Not Given Documented by: [id number] Admin: 07/24/18 02:47 Dose: Not Given Documented by: [id number] Ubaldo (Order Awaiting Action) 1 ea N/A QS RAMILA Stop: 08/23/18 00:00 Last Admin: 07/28/18 07:01 Dose: Not Given Documented by: [id number] Admin: 07/28/18 00:31 Dose: Not Given Documented by: [id number] Admin: 07/27/18 16:23 Dose: Not Given Documented by: [id number] Admin: 07/27/18 07:21 Dose: Not Given Documented by: [id number] Admin: 07/27/18 03:37 Dose: Not Given Documented by: [id number] Admin: 07/26/18 15:44 Dose: Not Given Documented by: [id number] Admin: 07/26/18 06:56 Dose: Not Given Documented by: [id number] Admin: 07/26/18 01:06 Dose: Not Given Documented by: [id number] Admin: 07/25/18 17:03 Dose: Not Given Documented by: [id number] Admin: 07/25/18 07:10 Dose: Not Given Documented by: [id number] Admin: 07/25/18 01:59 Dose: Not Given Documented by: [id number] Admin: 07/24/18 16:23 Dose: Not Given Documented by: [id number] Admin: 07/24/18 09:05 Dose: Not Given Documented by: [id number] Admin: 07/24/18 02:47 Dose: Not Given Documented by: [id number] Multivitamins (Multivitamin Tab) 1 tab PO DAILY RAMILA Stop: 08/23/18 08:59 Last Admin: 07/28/18 08:56 Dose: 1 tab Documented by: [id number] Admin: 07/27/18 08:53 Dose: 1 tab Documented by: [id number] Admin: 07/26/18 07:35 Dose: 1 tab Documented by: [id number] Admin: 07/25/18 07:11 Dose: 1 tab Documented by: [id number] Admin: 07/24/18 10:37 Dose: 1 tab Documented by: [id number] Potassium Chloride (Klor-Con Pwd) 20 meq PO DAILY RAMILA Stop: 08/23/18 08:59 Last Admin: 07/28/18 08:56 Dose: 20 meq Documented by: [id number] Admin: 07/27/18 08:53 Dose: 20 meq Documented by: [id number] Admin: 07/26/18 07:36 Dose: 20 meq Documented by: [id number] Admin: 07/25/18 07:14 Dose: 20 meq Documented by: [id number] Admin: 07/24/18 09:06 Dose: 20 meq Documented by: [id number] Prednisone (Prednisone) 5 mg PO DAILY RAMILA Stop: 08/23/18 08:59 Last Admin: 07/28/18 08:56 Dose: 5 mg Documented by: [id number] Admin: 07/27/18 08:53 Dose: 5 mg Documented by: [id number] Admin: 07/26/18 07:35 Dose: 5 mg Documented by: [id number] Admin: 07/25/18 07:13 Dose: 5 mg Documented by: [id number] Admin: 07/24/18 09:06 Dose: 5 mg Documented by: [id number] (1) UTI (urinary tract infection) Hematuria presence: without hematuria Urinary tract infection type: site unspecified Qualified Code(s): N39.0 - Urinary tract infection, site not specified
[2018-07-28] MEDS: POTASSIUM CHLORIDE PWD 20 MEQ PACK PO SCH (08:56)
[2018-07-28] MEDS: predniSONE 5 MG TAB PO SCH (08:56)
[2018-07-28] MEDS: METOPROLOL TARTRATE 50 MG TAB PO SCH ×2 (08:56→19:19)
[2018-07-28] MEDS: ASPIRIN 81 MG ECTAB PO SCH (08:56)
[2018-07-28] MEDS: MULTIVITAMIN TAB PO SCH (08:56)
[2018-07-28] MEDS: FUROSEMIDE 80 MG TAB PO SCH (08:56)
[2018-07-28] MEDS: APIXABAN 2.5 MG TAB PO SCH ×2 (08:56→19:21)
[2018-07-28] MEDS: DIGOXIN 0.125 MG TAB PO SCH (17:10)
[2018-07-28] MEDS: TRAVOPROST Z 0.004% OPH SOLN 2.5 ML BTL OPB SCH (20:29)
[2018-07-29] MEDS: LEVALBUTEROL HCL 1.25 MG/3 ML NEB INH SCH ×9 (00:39→22:58)
[2018-07-29] MEDS: LEVOTHYROXINE SODIUM 75 MCG TABLET PO SCH (06:21)
[2018-07-29] MEDS: predniSONE 5 MG TAB PO SCH (08:25)
[2018-07-29] MEDS: APIXABAN 2.5 MG TAB PO SCH ×2 (08:25→21:01)
[2018-07-29] MEDS: MULTIVITAMIN TAB PO SCH (08:25)
[2018-07-29] MEDS: METOPROLOL TARTRATE 50 MG TAB PO SCH ×2 (08:25→21:02)
[2018-07-29] MEDS: ASPIRIN 81 MG ECTAB PO SCH (08:25)
[2018-07-29] MEDS: FUROSEMIDE 80 MG TAB PO SCH (08:25)
[2018-07-29] MEDS: POTASSIUM CHLORIDE PWD 20 MEQ PACK PO SCH (08:26)
--- NOTE | 2018-07-29 09:37 | Discharge Summary ---
Date of Service July 29, 2018 Admission HPI Per Admitting Provider The patient is an 88-year-old female with a past medical history including severe COPD and left pleural effusion, who was sent to the emergency department by her home care nurse today with concerns regarding a possible pneumonia associated with a worsening hypoxia at home. She typically is on 4 L nasal cannula oxygen at baseline. She has had 3 recent falls over the past week, with the last one being yesterday, and denies any specific injury. The patient has been seen by Dr. Shoemaker in the outpatient office regarding the pleural effusion, and plans were to have a repeat chest x-ray to monitor the size of the effusion, as per the patient's notation, the 2 most recent x-rays did not show any significant worsening of the pleural effusion. She denies any associated chest pain. She reports that she also follows with Dr. Rucker from pulmonology, who has agreed to help her gradually taper off prednisone, at 1 mg/month rate, since she is concerned that the risks of prednisone use, in addition to causing her lower extremity edema, is affecting her skin as well. Discharge Data Allergies Allergy/AdvReac Type Severity Reaction Status Date / Time clonidine Allergy Mild SHORTNESS Verified 10/02/17 14:53 OF BREATH amlodipine Allergy Unknown rash,dizzy/balance Verified 07/23/18 19:40 off Iodinated Contrast- Oral and Allergy Unknown "IT JUST Verified 10/02/17 14:53 IV Dye AFFECTS ME AND I CAN'T EXPLAIN IT" latex Allergy Unknown RASH Verified 10/02/17 14:53 Penicillins Allergy Unknown UNKNOWN Verified 10/02/17 14:53 Sulfa (Sulfonamide Allergy Unknown "SWELLING Verified 10/02/17 14:53 Antibiotics) IN MOUTH AND DRIED OUT" atenolol Allergy Rash/dizzy Verified 07/23/18 19:40 clarithromycin Allergy Rash Verified 07/23/18 19:40 gatifloxacin Allergy rash/dizzy/ Verified 07/23/18 19:40 lightheaded losartan Allergy rash/dizzy Verified 07/23/18 19:40 Consultations 07/23/18 19:32 ED Decision to Admit Stat 07/23/18 22:25 Consult Cardiology Routine Consult Case Management - Discharge Planning Routine Consult Thoracic Surgery Routine 07/26/18 13:02 Consult Palliative Care Routine Hospital Course (1) Acute respiratory failure with hypoxia: Admission Differential includes acute exacerbation of CHF vs. acute COPD exacerbation vs. acute on chronic left pleural effusion. In ED on 07/23: CXR performed showed cardiomegaly and advanced emphysema with no radiographic evidence of congestive failure and small to moderate left pleural effusion with associated left basilar consolidation that has not significantly changed from study on 07/15/18. Repeat CXR on 07/25: Radiology report - unchanged size of moderate left pleural effusion; stable to slight increase in left basilar atelectasis. Continue with Xopenex 1.25mg QID scheduled and PRN Continue with Pred 5mg PO -Treated with Rocephin 1mg IV for 3 days, treated potential UTI and will continue as providing respiratory coverage for possible underlying pneumonia process also noted is on chronic pred, immunosuppression. -procalcitonin ordered was within normal limits. -Has remained afebrile WBC still elevated 07/25 11.83 which is same value as on ED presentation. -07/24 elevated to 14.25. But increase in CBC values WBC, RBC, Hgb, Hct - blood appears more concentrated this morning and elevation could be related to this. 07/25 has improved to 11.20. 07/26 elevated to 14.25 07/27 improved to 11.20 Is refusing blood draw today, will discontinue blood draw labs since plan is for home hospice with hopes of discharge tomorrow. (2) Recurrent left pleural effusion: In ED - Received albumin 25 g with furosemide 40 mg IV x1. Patient's baseline oxygen is 4 L at home, but had been increased to 6 L in the ED. Dr. Shoemaker consulted, whom she follow with in outpatient office regarding the pleural effusion. - performed thoracentesis last night. - there was concern for pneumothorax following procedure, but Dr. 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 - fluid re-accumulated this morning on follow up CXR. - Patient not a great candidate for treatment options of PleurX cath or surgery as she would most likely not tolerate procedures. - Will be difficult to treat - Negative for lights criteria and considered transudative process. Palliative care consult was placed and palliative care did discuss disposition options with son and Usha. She is able to be discharged from hospital as unfortunately there are no further interventions to reverse her advanced lung disease. Patient could benefit from Morphine for air hunger as she has intermittent episodes of accessory muscle use and anxiety. However, patient is difficult to treat with medications because she declines recommendations. She and son agreed to try very small dose of Ativan for acute dyspnea/anxiety as she does not want Morphine. 0.25mg of Ativan ordered, review of chart appears she did receive dose last night at 7pm. (3) Acute exacerbation of CHF (congestive heart failure): As above. (4) Elevated troponin: Trops elevated 0.047 -> 0.060 -> 0.063 -suspect from demand ischemia from hypoxia, values considered pleateau with no need for further trops Continue apixaban 2.5 mg p.o. twice daily, aspirin 81 mg daily, digoxin 1.5 mcg p.o. every afternoon, metoprolol tartrate 50 mg p.o. every 12 hours and potassium chloride 20 mg once p.o. daily. cardiology consulted and recommendations to continue current treatments. John Garvin PA-C, knows the patient well, and noted that onset of symptoms patient responds dramatically to Solu-Medrol 125 mg IV and Lasix 80 mg IV - each x 1 dose. However, patient declines further Prednisone use outside of her current PO taper. (5) COPD (chronic obstructive pulmonary disease): COPD exacerbation- Xopenex nebulizers to 4 times daily. Budesonide 0.5 mg Neb BID scheduled - will discontinue as patient is declining treatments. Patient is concerned about side effects of prednisone, was on chronically and trying to taper off (several month taper), was on prednisone 5 mg daily, and will continue. Does not want IV pred. (6) UTI (urinary tract infection): Placed on ceftriaxone 1 g IV daily to cover urine and pulmonary issues with 3 days of coverage given. Urine culture showed pinpoint growth - reincubation on 07/25 - Today resulted showing mod growth of skin chen (7) Recurrent falls: Multifactorial generalized deconditioning, CHF exacerbation, COPD exacerbation, hypoxia, failure to thrive Her physical activity significantly limited by her oxygenation status. She desats with conversation so likely does with any exertion. PT and OT evals ordered (8) Hypomagnesemia: 07/25 1.7 treated with Mag Ox 400mg PO 07/26 - 1.9 WNL Today - 1.9 WNL Will not monitor as she does not want further lab work Discharge Plan Discharge Items Reason For Visit: ACUTE ON CHRONIC RESP FAILURE WITH HYPOXIA Prescriptions: No Action multivitamin Tablet 1 tab PO DAILY RF: 0 prednisone 5 mg tablet 5 mg PO DAILY RF: 0 Travatan Z 0.004 % drops 1 drp OPB HS RF: 0 aspirin [Aspir-81] 81 mg Tablet,Delayed Release (Dr/Ec) 81 mg PO DAILY RF: 0 levothyroxine 75 mcg Tablet 75 mcg PO DAILY RF: 0 potassium chloride 20 mEq packet 20 meq PO DAILY RF: 0 furosemide [Lasix] 80 mg tablet 80 mg PO DAILY RF: 0 metoprolol tartrate [Lopressor] 50 mg tablet 50 mg PO Q12 RF: 0 digoxin [Digox] 125 mcg tablet 125 mcg PO QPM RF: 0 levalbuterol HCl [Xopenex] 1.25 mg/3 mL solution for nebulization 1 dose Inhalation TID PRN (Reason: Shortness Of Breath Or Wheezing) RF: 0 ipratropium bromide 0.03 % spray,non-aerosol 2 spray Intranasal TID PRN (Reason: Nasal Congestion) RF: 0 fluocinolone acetonide oil 0.01 % drops 1 dose OTB UD PRN (Reason: Unknown) RF: 0 Eliquis 2.5 mg tablet 2.5 mg PO BID RF: 0 Probiotic 3 billion cell Capsule PO DAILY RF: 0 Combivent Respimat 20-100 mcg/actuation mist 1 puff Inhalation TID RF: 0 Admission Data Admit Date/Time: 07/23/18 21:23 Attending Provider: Cookie Bennett Admit Provider: James Coles Primary Care Provider: Sheila Hurtado Other Providers: Parker Marion ; Lee Shoemaker ; Morgan Carvalho ; Linda Ochoa Service: Telemetry
--- NOTE | 2018-07-29 12:47 | Palliative Care Progress Note ---
Date of Service July 29, 2018 Assessment & Plan (1) Goals of care, counseling/discussion: -Will offer to complete a POLSt form on Sunday prior to patient going home (whenever that may be). She has declined doing a POLST form in the past. -Son, Patrick, is POA. Patient gave permission for him and her case technician, Mary, to know her information and coordinate her care. Son Patrick is out of town for the next couple weeks. He lives in [place], was only here visiting. -If SOB persists/worsens, would recommend Roxanol 5mg PO/SL Q3h PRN pain or SOB. Patient declines this medication at this time. -Plan is for patient to go home with [facility]. Our case technician is working with patient's personal case technician to coordinate discharge plan. -Offered POLST form again today, patient declined and said, "Why? That is not to my benefit," despite me explaining it to her. Patient is quite adamant that she does not want to return to the hospital. -Will continue to follow peripherally. Please contact me with any further palliative care needs. (2) Chronic diastolic heart failure: (3) Recurrent left pleural effusion: (4) Acute respiratory failure with hypoxia: (5) COPD (chronic obstructive pulmonary disease): Subjective Constitutional: + weakness Ear, Nose, Mouth, Throat: + dry mouth; no dysphagia Respiratory: + cough and + dyspnea on exertion; no sputum production Cardiovascular: + edema (but is now resolved); no chest pain Physical Exam Vital Signs (Past 24 Hours): Last Vital Signs Temp 36.6 C 07/29/18 11:06 Pulse 87 07/29/18 11:13 Resp 26 H 07/29/18 11:13 BP 174/84 H 07/29/18 11:06 Pulse Ox 94 07/29/18 11:13 Constitutional: + ill appearing (chronically) and + thin; no acute distress ENMT: external ear and nose normal, oropharynx normal Ears: + hearing impairment Neck: normal visual inspection and trachea midline Respiratory: normal respiratory effort, lungs clear to auscultation Auscultation: + diminished lung sounds (throughout) is chronically, mildly SOB and tachypneic at baseline Cardiovascular: Rate/Rhythm: regular rate Heart Sounds: + murmur Vessels: dorsalis pedis pulses present Extremities: no edema Gastrointestinal (Abdomen): normal bowel sounds, soft, nontender, no hepatosplenomegaly Skin: + ecchymosis Neurologic: awake; not confused Psychiatric: A+Ox3, euthymic affect Time Spent Midlevel 25 minutes with >50% of time spent at bedside with patient discussing POLST and plan of care.
[2018-07-29] MEDS: DIGOXIN 0.125 MG TAB PO SCH (16:14)
--- NOTE | 2018-07-29 17:33 | Family Medicine Progress Note ---
Date of Service July 29, 2018 Assessment & Plan (1) Acute respiratory failure with hypoxia: 88yo with end stage lung disease admitted for possible CHF vs. COPD exacerbation. Pt has capacity to make decisions and actively declining medication or placement in assisted living facility/[place] [facility]. would like to be discharged home where she has no assisstance. Acute Resp Failure with Hypoxia sec to large left Pleural effusion from CHF exacerbation/underlying COPD with exacerbation -continue oxygen support. COPD exacerbation- On with Xopenex 1.25mg QID scheduled and PRN and budesonide - d/c since declining treatments Continue with Pred 5mg PO -Treated with Rocephin 1mg IV for 3 days, treated potential UTI and will continue as providing respiratory coverage for possible underlying pneumonia process also noted is on chronic pred, immunosuppression. -Palliative consult Elevated Trops/Acute on chronic diastolic CHF exacerbation in setting of Chronic Atrial fibrillation -Trops elevated 0.047 -> 0.060 -> 0.063 -suspect from demand ischemia from hypoxia, values considered pleateau with no need for further trops Continue apixaban 2.5 mg p.o. twice daily, aspirin 81 mg daily, digoxin 1.5 mcg p.o. every afternoon, metoprolol tartrate 50 mg p.o. every 12 hours and potassium chloride 20 mg once p.o. daily. -cardiology consulted and recommendations to continue current treatments. John Garvin PA-C, knows the patient well, and noted that onset of symptoms patient responds dramatically to Solu-Medrol 125 mg IV and Lasix 80mg IV (1 dose each). -Currently declining meds. Recurrent L pleural effusion -possible transudate -Drained by Dr. Shoemaker but reaccumulated. Not candidate for PleurX cath or surgery. -will continue with diuresis UTI Placed on ceftriaxone 1 g IV daily to cover urine and pulmonary issues with 3 days of coverage given. Recurrent Falls Multifactorial generalized deconditioning, CHF exacerbation, COPD exacerbation, hypoxia, failure to thrive Her physical activity significantly limited by her oxygenation status. She desats with conversation so likely does with any exertion. PT and OT evals ordered Hypomagnesemia -Pt declining Rx DVT proph - apixiban (2) Recurrent left pleural effusion: (3) Acute exacerbation of CHF (congestive heart failure): (4) Elevated troponin: (5) COPD (chronic obstructive pulmonary disease): (6) UTI (urinary tract infection): (7) Recurrent falls: (8) Hypomagnesemia: Supervising Physician Co-Signing Physician Notes Resident Physician Supervision Note: I independently interviewed and examined the patient and verified the hernandez history and physical, reviewed labs and image studies, discussed the case with the resident Dr. Love, made edits to the above note and agree with the findings and care plan. Subjective Ms. Lane was belligerent this morning, refusing to take meds and demanding nursing anf resident physician services. Particularly states that she refuses to go to a "[place] [facility]". States she is having trouble breathing. Respiratory: + dyspnea Cardiovascular: no chest pain Physical Exam Vital Signs (Past 24 Hours): Last Vital Signs Temp 36.6 C 07/29/18 15:18 Pulse 102 H 07/29/18 16:14 Resp 26 H 07/29/18 15:19 BP 174/84 H 07/29/18 11:06 Pulse Ox 87 L 07/29/18 15:19 General: Alert, orientedx3. Anxious. HEENT: NC/AT, PERRLA, EOMI, oropharynx moist. Chest: Nontender to palpation. CV: RRR, Normal s1, s2. No murmurs appreciated Resp: Breath sounds clear bilaterally with scattered wheezes, some increased effort of breathing. Abdomen: BS+. Soft, nontender, nondistended. No guarding. No organomegaly appreciated. Extremities: No edema. Results & Data Medications Administered Home Medications apixaban [Eliquis] 2.5 mg PO BID 07/23/18 [History Confirmed 07/23/18] aspirin [Aspir-81] 81 mg PO DAILY 07/23/18 [History Confirmed 07/23/18] digoxin [Digox] 125 mcg PO QPM 07/23/18 [History Confirmed 07/23/18] fluocinolone acetonide oil 1 dose OTB UD PRN 07/23/18 [History Confirmed 07/23/18] furosemide [Lasix] 80 mg PO DAILY 07/23/18 [History Confirmed 07/23/18] ipratropium bromide 2 spray INTRANASAL TID PRN 07/23/18 [History Confirmed 07/23/18] ipratropium-albuterol [Combivent Respimat] 1 puff INHALATION TID 07/23/18 [History Confirmed 07/23/18] lactobacillus combination no.4 [Probiotic] 0 mmu cells PO DAILY 07/23/18 [History Confirmed 07/23/18] levalbuterol HCl [Xopenex] 1 dose INHALATION TID PRN 07/23/18 [History Confirmed 07/23/18] levothyroxine 75 mcg PO DAILY 07/23/18 [History Confirmed 07/23/18] metoprolol tartrate [Lopressor] 50 mg PO Q12 07/23/18 [History Confirmed 07/23/18] multivitamin 1 tab PO DAILY 07/23/18 [History Confirmed 07/23/18] potassium chloride 20 meq PO DAILY 07/23/18 [History Confirmed 07/23/18] prednisone 5 mg PO DAILY 07/23/18 [History Confirmed 07/23/18] travoprost [Travatan Z] 1 drp OPB HS 07/23/18 [History Confirmed 07/23/18] Active Medications Acetaminophen (Tylenol) 650 mg PO Q4H PRN PRN Reason: Pain or Fever Stop: 08/22/18 22:24 Al Hydrox/Mg Hydrox/Simethicone (Maalox) 15 ml PO Q4H PRN PRN Reason: Dyspepsia Stop: 08/22/18 22:24 Albuterol (Combivent Respimat) 1 puffs INH TID [facility] Stop: 08/23/18 08:59 Last Admin: 07/25/18 22:05 Dose: 1 puffs Documented by: Apixaban (Eliquis) 2.5 mg PO BID [facility] Stop: 08/22/18 22:24 Last Admin: 07/29/18 08:25 Dose: 2.5 mg Documented by: Aspirin (Ecotrin Ectab) 81 mg PO DAILY [facility] Stop: 08/23/18 08:59 Last Admin: 07/29/18 08:25 Dose: 81 mg Documented by: Digoxin (Lanoxin) 0.125 mg PO DAILY@1600 [facility] Stop: 08/23/18 15:59 Last Admin: 07/29/18 16:14 Dose: 0.125 mg Documented by: Furosemide (Lasix) 80 mg PO DAILY [facility] Stop: 08/23/18 08:59 Last Admin: 07/29/18 08:25 Dose: 80 mg Documented by: Levalbuterol HCl (Xopenex 1.25mg/3ml Neb) 1.25 mg INH Q4R [facility] Stop: 08/25/18 03:59 Last Admin: 07/29/18 15:17 Dose: 1.25 mg Documented by: Levalbuterol HCl (Xopenex 0.31mg/3 Ml) 0.31 mg NEB Q4R PRN PRN Reason: Shortness Of Breath Or Wheezing Stop: 08/26/18 15:59 Levothyroxine Sodium (Synthroid) 75 mcg PO DAILYBB [facility] Stop: 08/23/18 06:29 Last Admin: 07/29/18 06:21 Dose: 75 mcg Documented by: Lorazepam (Ativan) 0.25 mg SL Q6H PRN PRN Reason: Anxiety, agitation, or shortness of breath Stop: 08/26/18 15:14 Last Admin: 07/27/18 19:04 Dose: 0.25 mg Documented by: Magnesium Hydroxide (Milk Of Magnesia) 30 ml PO Q12H PRN PRN Reason: Constipation Stop: 08/22/18 22:24 Metoprolol Tartrate (Lopressor) 50 mg PO Q12 [facility] Stop: 08/24/18 05:59 Last Admin: 07/29/18 08:25 Dose: 50 mg Documented by: Miscellaneous (Order Awaiting Action) 1 ea N/A QS [facility] Stop: 08/23/18 00:00 Last Admin: 07/29/18 16:12 Dose: Not Given Documented by: Miscellaneous (Order Awaiting Action) 1 ea N/A QS [facility] Stop: 08/23/18 00:00 Last Admin: 07/29/18 16:12 Dose: Not Given Documented by: Multivitamins (Multivitamin Tab) 1 tab PO DAILY [facility] Stop: 08/23/18 08:59 Last Admin: 07/29/18 08:25 Dose: 1 tab Documented by: Ondansetron HCl (Zofran) 4 mg IV Q6H PRN PRN Reason: NAUSEA/VOMITING Stop: 08/22/18 22:24 Polyethylene Glycol (Miralax Powder Packet) 17 gm PO DAILY PRN PRN Reason: Constipation Stop: 08/24/18 20:55 Potassium Chloride (Klor-Con Pwd) 20 meq PO DAILY [facility] Stop: 08/23/18 08:59 Last Admin: 07/29/18 08:26 Dose: 20 meq Documented by: Prednisone (Prednisone) 5 mg PO DAILY [facility] Stop: 08/23/18 08:59 Last Admin: 07/29/18 08:25 Dose: 5 mg Documented by: Resident Activity Tracking Resident Involvement: Resident Care Provided Care Provided: Adult Hospital Medicine (1) UTI (urinary tract infection) Hematuria presence: without hematuria Urinary tract infection type: site unspecified Qualified Code(s): N39.0 - Urinary tract infection, site not specified
[2018-07-29] MEDS: TRAVOPROST Z 0.004% OPH SOLN 2.5 ML BTL OPB SCH (21:03)
[2018-07-30] MEDS: LEVALBUTEROL HCL 1.25 MG/3 ML NEB INH SCH ×8 (03:14→22:44)
[2018-07-30] MEDS: LEVOTHYROXINE SODIUM 75 MCG TABLET PO SCH (05:55)
[2018-07-30] MEDS: APIXABAN 2.5 MG TAB PO SCH ×2 (10:02→20:41)
[2018-07-30] MEDS: MULTIVITAMIN TAB PO SCH (10:02)
[2018-07-30] MEDS: POTASSIUM CHLORIDE PWD 20 MEQ PACK PO SCH (10:02)
[2018-07-30] MEDS: METOPROLOL TARTRATE 50 MG TAB PO SCH ×2 (10:03→20:41)
[2018-07-30] MEDS: predniSONE 5 MG TAB PO SCH (10:03)
[2018-07-30] MEDS: FUROSEMIDE 80 MG TAB PO SCH (10:03)
[2018-07-30] MEDS: ASPIRIN 81 MG ECTAB PO SCH (10:03)
--- NOTE | 2018-07-30 16:29 | Family Medicine Progress Note ---
Date of Service July 30, 2018 Assessment & Plan (1) Goals of care, counseling/discussion: 88yo with end stage lung disease admitted for possible CHF vs. COPD exacerbation. Pt has capacity to make decisions and actively declining medication or placement in assisted living facility/correction. Would like to be discharged home where she has no assistance but needs help with ADLs. Goals today has been optimizing care for safe transition to home. Acute Resp Failure with Hypoxia sec to Pleural effusion from CHF exacerbation/underlying COPD with exacerbation -continue oxygen support. COPD exacerbation- On with Xopenex 1.25mg QID scheduled and PRN and budesonide - d/c since declining treatments Continue with Pred 5mg PO -Treated with Rocephin 1mg IV for 3 days, treated potential UTI and will continue as providing respiratory coverage for possible underlying pneumonia process also noted is on chronic pred, immunosuppression. Elevated Trops/Acute on chronic diastolic CHF exacerbation in setting of Chronic Atrial fibrillation -Trops elevated 0.047 -> 0.060 -> 0.063 -suspect from demand ischemia from hypoxia, values considered pleateau with no need for further trops Continue apixaban 2.5 mg p.o. twice daily, aspirin 81 mg daily, digoxin 1.5 mcg p.o. every afternoon, metoprolol tartrate 50 mg p.o. every 12 hours and potassium chloride 20 mg once p.o. daily. -cardiology consulted and recommendations to continue current treatments. John Garvin PA-C, knows the patient well, and noted that onset of symptoms patient responds dramatically to Solu-Medrol 125 mg IV and Lasix 80mg IV (1 dose each). -Currently declining meds. Recurrent L pleural effusion -possible transudate -Drained by Dr. Shoemaker but reaccumulated. Not candidate for PleurX cath or surgery. -will continue with diuresis UTI Placed on ceftriaxone 1 g IV daily to cover urine and pulmonary issues with 3 days of coverage given. Recurrent Falls Multifactorial generalized deconditioning, CHF exacerbation, COPD exacerbation, hypoxia, failure to thrive Her physical activity significantly limited by her oxygenation status. She desats with conversation so likely does with any exertion. PT and OT evals ordered Hypomagnesemia -Pt declining Rx DVT proph - apixiban Patient declining SNF placement. Awaiting arrangement for discharge to home with home health Supervising Physician Co-Signing Physician Notes Resident Physician Supervision Note: I independently interviewed and examined the patient and verified the hernadnez history and physical, reviewed labs and image studies, discussed the case with the resident Dr. Love and agree with the findings and care plan. Subjective Pt states that she is still having trouble breathing. Denied chest or abd pain associated. Goals today have been optimizing care for transition to home. Physical Exam Vital Signs (Past 24 Hours): Last Vital Signs Temp 36.7 C 07/30/18 15:54 Pulse 76 07/30/18 15:54 Resp 24 07/30/18 15:54 BP 179/83 H 07/30/18 15:54 Pulse Ox 92 07/30/18 15:54 General: Alert, orientedx3. Frail and anxious. HEENT: NC/AT, PERRLA, EOMI, oropharynx moist. Chest: Nontender to palpation. CV: RRR, Normal s1, s2. No murmurs appreciated Resp: Breath sounds clear bilaterally with scattered wheezes, some increased effort of breathing. Abdomen: BS+. Soft, nontender, nondistended. No guarding. No organomegaly appreciated. Extremities: No edema. Results & Data Medications Administered Home Medications apixaban [Eliquis] 2.5 mg PO BID 07/23/18 [History Confirmed 07/23/18] aspirin [Aspir-81] 81 mg PO DAILY 07/23/18 [History Confirmed 07/23/18] digoxin [Digox] 125 mcg PO QPM 07/23/18 [History Confirmed 07/23/18] fluocinolone acetonide oil 1 dose OTB UD PRN 07/23/18 [History Confirmed 07/23/18] furosemide [Lasix] 80 mg PO DAILY 07/23/18 [History Confirmed 07/23/18] ipratropium bromide 2 spray INTRANASAL TID PRN 07/23/18 [History Confirmed 0 07/23/18] ipratropium-albuterol [Combivent Respimat] 1 puff INHALATION TID 07/23/18 [History Confirmed 07/23/18] lactobacillus combination no.4 [Probiotic] 0 mmu cells PO DAILY 07/23/18 [History Confirmed 07/23/18] levalbuterol HCl [Xopenex] 1 dose INHALATION TID PRN 07/23/18 [History Confirmed 07/23/18] levothyroxine 75 mcg PO DAILY 07/23/18 [History Confirmed 07/23/18] metoprolol tartrate [Lopressor] 50 mg PO Q12 07/23/18 [History Confirmed 07/23/18] multivitamin 1 tab PO DAILY 07/23/18 [History Confirmed 07/23/18] potassium chloride 20 meq PO DAILY 07/23/18 [History Confirmed 07/23/18] prednisone 5 mg PO DAILY 07/23/18 [History Confirmed 07/23/18] travoprost [Travatan Z] 1 drp OPB HS 07/23/18 [History Confirmed 07/23/18] Active Medications Acetaminophen (Tylenol) 650 mg PO Q4H PRN PRN Reason: Pain or Fever Stop: 08/22/18 22:24 Al Hydrox/Mg Hydrox/Simethicone (Maalox) 15 ml PO Q4H PRN PRN Reason: Dyspepsia Stop: 08/22/18 22:24 Albuterol (Combivent Respimat) 1 puffs INH TID [facility] Stop: 08/23/18 08:59 Last Admin: 07/25/18 22:05 Dose: 1 puffs Documented by: Apixaban (Eliquis) 2.5 mg PO BID [facility] Stop: 08/22/18 22:24 Last Admin: 07/30/18 10:02 Dose: 2.5 mg Documented by: Aspirin (Ecotrin Ectab) 81 mg PO DAILY [facility] Stop: 08/23/18 08:59 Last Admin: 07/30/18 10:03 Dose: 81 mg Documented by: Digoxin (Lanoxin) 0.125 mg PO DAILY@1600 [facility] Stop: 08/23/18 15:59 Last Admin: 07/29/18 16:14 Dose: 0.125 mg Documented by: Furosemide (Lasix) 80 mg PO DAILY [facility] Stop: 08/23/18 08:59 Last Admin: 07/30/18 10:03 Dose: 80 mg Documented by: Levalbuterol HCl (Xopenex 1.25mg/3ml Neb) 1.25 mg INH Q4R [facility] Stop: 08/25/18 03:59 Last Admin: 07/30/18 14:51 Dose: 1.25 mg Documented by: Levalbuterol HCl (Xopenex 0.31mg/3 Ml) 0.31 mg NEB Q4R PRN PRN Reason: Shortness Of Breath Or Wheezing Stop: 08/26/18 15:59 Levothyroxine Sodium (Synthroid) 75 mcg PO DAILYBB [facility] Stop: 08/23/18 06:29 Last Admin: 07/30/18 05:55 Dose: 75 mcg Documented by: Lorazepam (Ativan) 0.25 mg SL Q6H PRN PRN Reason: Anxiety, agitation, or shortness of breath Stop: 08/26/18 15:14 Last Admin: 07/27/18 19:04 Dose: 0.25 mg Documented by: Magnesium Hydroxide (Milk Of Magnesia) 30 ml PO Q12H PRN PRN Reason: Constipation Stop: 08/22/18 22:24 Metoprolol Tartrate (Lopressor) 50 mg PO Q12 [facility] Stop: 08/24/18 05:59 Last Admin: 07/30/18 10:03 Dose: 50 mg Documented by: Miscellaneous (Order Awaiting Action) 1 ea N/A QS [facility] Stop: 08/23/18 00:00 Last Admin: 07/30/18 07:04 Dose: Not Given Documented by: Miscellaneous (Order Awaiting Action) 1 ea N/A QS [facility] Stop: 08/23/18 00:00 Last Admin: 07/30/18 07:04 Dose: Not Given Documented by: Multivitamins (Multivitamin Tab) 1 tab PO DAILY [facility] Stop: 08/23/18 08:59 Last Admin: 07/30/18 10:02 Dose: 1 tab Documented by: Ondansetron HCl (Zofran) 4 mg IV Q6H PRN PRN Reason: NAUSEA/VOMITING Stop: 08/22/18 22:24 Polyethylene Glycol (Miralax Powder Packet) 17 gm PO DAILY PRN PRN Reason: Constipation Stop: 08/24/18 20:55 Potassium Chloride (Klor-Con Pwd) 20 meq PO DAILY [facility] Stop: 08/23/18 08:59 Last Admin: 07/30/18 10:02 Dose: 20 meq Documented by: Prednisone (Prednisone) 5 mg PO DAILY [facility] Stop: 08/23/18 08:59 Last Admin: 07/30/18 10:03 Dose: 5 mg Documented by: Resident Activity Tracking Resident Involvement: Resident Care Provided Care Provided: Adult Hospital Medicine
[2018-07-30] MEDS: DIGOXIN 0.125 MG TAB PO SCH (16:39)
[2018-07-30] MEDS: TRAVOPROST Z 0.004% OPH SOLN 2.5 ML BTL OPB SCH (20:41)
[2018-07-31] MEDS: LEVALBUTEROL HCL 1.25 MG/3 ML NEB INH SCH ×9 (03:08→23:06)
[2018-07-31] MEDS: LEVOTHYROXINE SODIUM 75 MCG TABLET PO SCH (06:07)
[2018-07-31] MEDS: METOPROLOL TARTRATE 50 MG TAB PO SCH ×2 (08:49→19:42)
[2018-07-31] MEDS: ASPIRIN 81 MG ECTAB PO SCH (08:49)
[2018-07-31] MEDS: MULTIVITAMIN TAB PO SCH (08:49)
[2018-07-31] MEDS: FUROSEMIDE 80 MG TAB PO SCH (08:49)
[2018-07-31] MEDS: APIXABAN 2.5 MG TAB PO SCH ×2 (08:49→19:42)
[2018-07-31] MEDS: POTASSIUM CHLORIDE PWD 20 MEQ PACK PO SCH (08:49)
[2018-07-31] MEDS: predniSONE 5 MG TAB PO SCH (09:31)
--- NOTE | 2018-07-31 10:42 | Family Medicine Progress Note ---
Date of Service July 31, 2018 Assessment & Plan (1) Goals of care, counseling/discussion: 88yo with end stage lung disease admitted for possible CHF vs. COPD exacerbation. Pt has capacity to make decisions and actively declining medication or placement in assisted living facility/assisted. Would like to be discharged home where she has no assistance but needs help with ADLs. Goals today has been optimizing care for safe transition to home. Acute Resp Failure with Hypoxia sec to Pleural effusion from CHF exacerbation/underlying COPD with exacerbation -continue oxygen support. Acute on chronic diastolic CHF exacerbation in setting of Chronic Atrial fibr illation Mild troponin elevation -Trops elevated 0.047 -> 0.060 -> 0.063 -suspect from demand ischemia from hypoxia, values considered pleateau with no need for further trops Continue apixaban 2.5 mg p.o. twice daily, aspirin 81 mg daily, digoxin 1.5 mcg p.o. every afternoon, metoprolol tartrate 50 mg p.o. every 12 hours and potassium chloride 20 mg once p.o. daily. -cardiology consulted and recommendations to continue current treatments. John Garvin PA-C, knows the patient well, and noted that onset of symptoms patient responds dramatically to Lasix 80mg IV (1 dose each). -Currently declining meds. Recurrent L pleural effusion -possible transudate -Drained by Dr. Shoemaker but reaccumulated. Not candidate for PleurX cath or surgery. -will continue with diuresis COPD exacerbation -Never received IV steroids or extra dose prednisone in ED On with Xopenex 1.25mg QID scheduled and PRN and budesonide - d/c since declining treatments Continue home dose of Pred 5mg PO Concern of UTI Placed on ceftriaxone 1 g IV x 3 days. Urine culture grew more than 3 organism. Recurrent Falls Multifactorial generalized deconditioning, CHF exacerbation, COPD exacerbation, hypoxia, failure to thrive Her physical activity significantly limited by her oxygenation status. She desaturates with conversation so likely does with any exertion. PT and OT evals ordered Hypomagnesemia -Pt declining Rx DVT proph - apixiban Dispo: Patient declining SNF placement. Awaiting arrangement for discharge to home with home health Supervising Physician Co-Signing Physician Notes Resident Physician Supervision Note: I independently interviewed and examined the patient and verified the hernandez history and physical, reviewed labs and image studies, discussed the case with the resident Dr. Love, made edits to the above note and agree with the findings and care plan. Subjective Pt was resting comfortably sleeping this morning. Physical Exam Vital Signs (Past 24 Hours): Last Vital Signs Temp 36.6 C 07/31/18 10:29 Pulse 83 07/31/18 10:29 Resp 32 H 07/31/18 10:29 BP 181/84 H 07/31/18 10:29 Pulse Ox 92 07/31/18 10:29 General: Frail, resting comfortably in bed. HEENT: NC/AT, Nasal cannula in nares. Chest: Nontender to palpation. CV: RRR, Normal s1, s2. No murmurs appreciated Resp: Breath sounds clear bilaterally with scattered wheezes, decreased effort of breathing while sleeping. Abdomen: BS+. Soft, nontender, nondistended. No guarding. No organomegaly appreciated. Extremities: No edema. Results & Data Medications Administered Home Medications apixaban [Eliquis] 2.5 mg PO BID 07/23/18 [History Confirmed 07/23/18] aspirin [Aspir-81] 81 mg PO DAILY 07/23/18 [History Confirmed 07/23/18] digoxin [Digox] 125 mcg PO QPM 07/23/18 [History Confirmed 07/23/18] fluocinolone acetonide oil 1 dose OTB UD PRN 07/23/18 [History Confirmed 07/23/18] furosemide [Lasix] 80 mg PO DAILY 07/23/18 [History Confirmed 07/23/18] ipratropium bromide 2 spray INTRANASAL TID PRN 07/23/18 [History Confirmed 07/23/18] ipratropium-albuterol [Combivent Respimat] 1 puff INHALATION TID 07/23/18 [History Confirmed 07/23/18] lactobacillus combination no.4 [Probiotic] 0 mmu cells PO DAILY 07/23/18 [History Confirmed 07/23/18] levalbuterol HCl [Xopenex] 1 dose INHALATION TID PRN 07/23/18 [History Confirmed 07/23/18] levothyroxine 75 mcg PO DAILY 07/23/18 [History Confirmed 07/23/18] metoprolol tartrate [Lopressor] 50 mg PO Q12 07/23/18 [History Confirmed 07/23/18] multivitamin 1 tab PO DAILY 07/23/18 [History Confirmed 07/23/18] potassium chloride 20 meq PO DAILY 07/23/18 [History Confirmed 07/23/18] prednisone 5 mg PO DAILY 07/23/18 [History Confirmed 07/23/18] travoprost [Travatan Z] 1 drp OPB HS 07/23/18 [History Confirmed 07/23/18] Active Medications Acetaminophen (Tylenol) 650 mg PO Q4H PRN PRN Reason: Pain or Fever Stop: 08/22/18 22:24 Al Hydrox/Mg Hydrox/Simethicone (Maalox) 15 ml PO Q4H PRN PRN Reason: Dyspepsia Stop: 08/22/18 22:24 Albuterol (Combivent Respimat) 1 puffs INH TID [facility] Stop: 08/23/18 08:59 Last Admin: 07/25/18 22:05 Dose: 1 puffs Documented by: Apixaban (Eliquis) 2.5 mg PO BID [facility] Stop: 08/22/18 22:24 Last Admin: 07/31/18 08:49 Dose: 2.5 mg Documented by: Aspirin (Ecotrin Ectab) 81 mg PO DAILY [facility] Stop: 08/23/18 08:59 Last Admin: 07/31/18 08:49 Dose: 81 mg Documented by: Digoxin (Lanoxin) 0.125 mg PO DAILY@1600 [facility] Stop: 08/23/18 15:59 Last Admin: 07/30/18 16:39 Dose: 0.125 mg Documented by: Furosemide (Lasix) 80 mg PO DAILY [facility] Stop: 08/23/18 08:59 Last Admin: 07/31/18 08:49 Dose: 80 mg Documented by: Levalbuterol HCl (Xopenex 1.25mg/3ml Neb) 1.25 mg INH Q4R [facility] Stop: 08/25/18 03:59 Last Admin: 07/31/18 09:11 Dose: 1.25 mg Documented by: Levalbuterol HCl (Xopenex 0.31mg/3 Ml) 0.31 mg NEB Q4R PRN PRN Reason: Shortness Of Breath Or Wheezing Stop: 08/26/18 15:59 Levothyroxine Sodium (Synthroid) 75 mcg PO DAILYBB [facility] Stop: 08/23/18 06:29 Last Admin: 07/31/18 06:07 Dose: 75 mcg Documented by: Lorazepam (Ativan) 0.25 mg SL Q6H PRN PRN Reason: Anxiety, agitation, or shortness of breath Stop: 08/26/18 15:14 Last Admin: 07/27/18 19:04 Dose: 0.25 mg Documented by: Magnesium Hydroxide (Milk Of Magnesia) 30 ml PO Q12H PRN PRN Reason: Constipation Stop: 08/22/18 22:24 Metoprolol Tartrate (Lopressor) 50 mg PO Q12 [facility] Stop: 08/24/18 05:59 Last Admin: 07/31/18 08:49 Dose: 50 mg Documented by: Miscellaneous (Order Awaiting Action) 1 ea N/A QS [facility] Stop: 08/23/18 00:00 Last Admin: 07/31/18 07:32 Dose: Not Given Documented by: Miscellaneous (Order Awaiting Action) 1 ea N/A QS [facility] Stop: 08/23/18 00:00 Last Admin: 07/31/18 07:32 Dose: Not Given Documented by: Multivitamins (Multivitamin Tab) 1 tab PO DAILY [facility] Stop: 08/23/18 08:59 Last Admin: 07/31/18 08:49 Dose: 1 tab Documented by: Ondansetron HCl (Zofran) 4 mg IV Q6H PRN PRN Reason: NAUSEA/VOMITING Stop: 08/22/18 22:24 Polyethylene Glycol (Miralax Powder Packet) 17 gm PO DAILY PRN PRN Reason: Constipation Stop: 08/24/18 20:55 Potassium Chloride (Klor-Con Pwd) 20 meq PO DAILY [facility] Stop: 08/23/18 08:59 Last Admin: 07/31/18 08:49 Dose: 20 meq Documented by: Prednisone (Prednisone) 5 mg PO DAILY [facility] Stop: 08/23/18 08:59 Last Admin: 07/31/18 09:31 Dose: 5 mg Documented by: Resident Activity Tracking Resident Involvement: Resident Care Provided Care Provided: Adult Hospital Medicine
[2018-07-31] MEDS: DIGOXIN 0.125 MG TAB PO SCH (16:10)
[2018-07-31] MEDS: TRAVOPROST Z 0.004% OPH SOLN 2.5 ML BTL OPB SCH (19:43)
[2018-08-01] MEDS: LEVALBUTEROL HCL 1.25 MG/3 ML NEB INH SCH ×8 (02:59→22:06)
[2018-08-01] MEDS: LEVOTHYROXINE SODIUM 75 MCG TABLET PO SCH (07:12)
[2018-08-01] MEDS: predniSONE 5 MG TAB PO SCH (09:43)
[2018-08-01] MEDS: MULTIVITAMIN TAB PO SCH (09:43)
[2018-08-01] MEDS: ASPIRIN 81 MG ECTAB PO SCH (09:43)
[2018-08-01] MEDS: POTASSIUM CHLORIDE PWD 20 MEQ PACK PO SCH (09:43)
[2018-08-01] MEDS: FUROSEMIDE 80 MG TAB PO SCH (09:43)
[2018-08-01] MEDS: APIXABAN 2.5 MG TAB PO SCH ×2 (09:43→20:29)
[2018-08-01] MEDS: METOPROLOL TARTRATE 50 MG TAB PO SCH ×2 (09:44→20:29)
--- NOTE | 2018-08-01 10:53 | Family Medicine Progress Note ---
Date of Service August 01, 2018 Assessment & Plan (1) Goals of care, counseling/discussion: 88yo with end stage lung disease admitted for possible CHF vs. COPD exacerbation. Pt has capacity to make decisions and actively declining medication or placement in assisted living facility/residential. Would like to be discharged home where she has no assistance but needs help with ADLs. Goals today has been optimizing care for safe transition to home. Acute Resp Failure with Hypoxia sec to Pleural effusion from CHF exacerbation/underlying COPD with exacerbation -continue oxygen support. Acute on chronic diastolic CHF exacerbation in setting of Chronic Atrial fibrillation Mild troponin elevation -Trops elevated 0.047 -> 0.060 -> 0.063 -suspect from demand ischemia from hypoxia, values considered pleateau with no need for further trops Continue apixaban 2.5 mg p.o. twice daily, aspirin 81 mg daily, digoxin 1.5 mcg p.o. every afternoon, metoprolol tartrate 50 mg p.o. every 12 hours and potassium chloride 20 mg once p.o. daily. -cardiology consulted. patient had significant improvement in symptoms with IV lasix 80mgs given in ED. -Currently declining meds. Recurrent L pleural effusion -possible transudate -Drained by Dr. Shoemaker but reaccumulated. Not candidate for PleurX cath or surgery. -will continue with diuresis COPD -Never received IV steroids or extra dose prednisone in ED On Xopenex 1.25mg QID scheduled and budesonide Continue home dose of Pred 5mg PO -of note, pt periodically declining treatments. Possible aspiration events -check swallowing eval Concern of UTI -Received ceftriaxone 1 g IV x 3 days. Urine culture grew more than 3 organisms. Recurrent Falls Multifactorial generalized deconditioning, CHF exacerbation, COPD exacerbation, hypoxia, failure to thrive Her physical activity significantly limited by her oxygenation status. She desaturates with conversation so likely does with any exertion. PT and OT evals ordered- PT/OT recs: 11/12 home care or residential facility placement. Pt refusing facility placement so home care being coordinated. Hypomagnesemia -Pt declining Rx and lab draws. DVT proph - apixiban Dispo: Patient declining SNF placement. Awaiting arrangement for discharge to home with home health Supervising Physician Co-Signing Physician Notes Resident Physician Supervision Note: I independently interviewed and examined the patient and verified the hernandez history and physical, reviewed labs and image studies, discussed the case with the resident Dr. Love and agree with the findings and care plan. Subjective Pt states she is still having trouble breathing and is dissatified with her care. Denies chest pain and states she has some loss of appetite. Physical Exam Vital Signs (Past 24 Hours): Last Vital Signs Temp 36.6 C 08/01/18 06:59 Pulse 83 08/01/18 10:33 Resp 32 H 08/01/18 10:33 BP 174/84 H 08/01/18 06:59 Pulse Ox 87 L 08/01/18 10:33 General: Frail, agitated. HEENT: NC/AT, Nasal cannula in nares. Chest: Nontender to palpation. CV: RRR, Normal s1, s2. No murmurs appreciated Resp: Breath sounds clear bilaterally with scattered wheezes, decreased effort of breathing while sleeping. Abdomen: BS+. Soft, nontender, nondistended. No guarding. No organomegaly appreciated. Extremities: No edema. Results & Data Medications Administered Home Medications apixaban [Eliquis] 2.5 mg PO BID 07/23/18 [History Confirmed 07/23/18] aspirin [Aspir-81] 81 mg PO DAILY 07/23/18 [History Confirmed 07/23/18] digoxin [Digox] 125 mcg PO QPM 07/23/18 [History Confirmed 07/23/18] fluocinolone acetonide oil 1 dose OTB UD PRN 07/23/18 [History Confirmed 07/23/18] furosemide [Lasix] 80 mg PO DAILY 07/23/18 [History Confirmed 07/23/18] ipratropium bromide 2 spray INTRANASAL TID PRN 07/23/18 [History Confirmed 07/23/18] ipratropium-albuterol [Combivent Respimat] 1 puff INHALATION TID 07/23/18 [History Confirmed 07/23/18] lactobacillus combination no.4 [Probiotic] 0 mmu cells PO DAILY 07/23/18 [History Confirmed 07/23/18] levalbuterol HCl [Xopenex] 1 dose INHALATION TID PRN 07/23/18 [History Confirmed 07/23/18] levothyroxine 75 mcg PO DAILY 07/23/18 [History Confirmed 07/23/18] metoprolol tartrate [Lopressor] 50 mg PO Q12 07/23/18 [History Confirmed 07/23/18] multivitamin 1 tab PO DAILY 07/23/18 [History Confirmed 07/23/18] potassium chloride 20 meq PO DAILY 07/23/18 [History Confirmed 07/23/18] prednisone 5 mg PO DAILY 07/23/18 [History Confirmed 07/23/18] travoprost [Travatan Z] 1 drp OPB HS 07/23/18 [History Confirmed 07/23/18] Active Medications Acetaminophen (Tylenol) 650 mg PO Q4H PRN PRN Reason: Pain or Fever Stop: 08/22/18 22:24 Al Hydrox/Mg Hydrox/Simethicone (Maalox) 15 ml PO Q4H PRN PRN Reason: Dyspepsia Stop: 08/22/18 22:24 Albuterol (Combivent Respimat) 1 puffs INH TID [facility] Stop: 08/23/18 08:59 Last Admin: 07/25/18 22:05 Dose: 1 puffs Documented by: Apixaban (Eliquis) 2.5 mg PO BID [facility] Stop: 08/22/18 22:24 Last Admin: 08/01/18 09:43 Dose: 2.5 mg Documented by: Aspirin (Ecotrin Ectab) 81 mg PO DAILY [facility] Stop: 08/23/18 08:59 Last Admin: 08/01/18 09:43 Dose: 81 mg Documented by: Digoxin (Lanoxin) 0.125 mg PO DAILY@1600 [facility] Stop: 08/23/18 15:59 Last Admin: 07/31/18 16:10 Dose: 0.125 mg Documented by: Furosemide (Lasix) 80 mg PO DAILY [facility] Stop: 08/23/18 08:59 Last Admin: 08/01/18 09:43 Dose: 80 mg Documented by: Levalbuterol HCl (Xopenex 1.25mg/3ml Neb) 1.25 mg INH Q4R [facility] Stop: 08/25/18 03:59 Last Admin: 08/01/18 10:32 Dose: 1.25 mg Documented by: Levalbuterol HCl (Xopenex 0.31mg/3 Ml) 0.31 mg NEB Q4R PRN PRN Reason: Shortness Of Breath Or Wheezing Stop: 08/26/18 15:59 Levothyroxine Sodium (Synthroid) 75 mcg PO DAILYBB [facility] Stop: 08/23/18 06:29 Last Admin: 08/01/18 07:12 Dose: 75 mcg Documented by: Lorazepam (Ativan) 0.25 mg SL Q6H PRN PRN Reason: Anxiety, agitation, or shortness of breath Stop: 08/26/18 15:14 Last Admin: 07/27/18 19:04 Dose: 0.25 mg Documented by: Magnesium Hydroxide (Milk Of Magnesia) 30 ml PO Q12H PRN PRN Reason: Constipation Stop: 08/22/18 22:24 Metoprolol Tartrate (Lopressor) 50 mg PO Q12 [facility] Stop: 08/24/18 05:59 Last Admin: 08/01/18 09:44 Dose: 50 mg Documented by: Miscellaneous (Order Awaiting Action) 1 ea N/A QS [facility] Stop: 08/23/18 00:00 Last Admin: 08/01/18 09:44 Dose: Not Given Documented by: Miscellaneous (Order Awaiting Action) 1 ea N/A QS [facility] Stop: 08/23/18 00:00 Last Admin: 08/01/18 09:44 Dose: Not Given Documented by: Multivitamins (Multivitamin Tab) 1 tab PO DAILY [facility] Stop: 08/23/18 08:59 Last Admin: 08/01/18 09:43 Dose: 1 tab Documented by: Ondansetron HCl (Zofran) 4 mg IV Q6H PRN PRN Reason: NAUSEA/VOMITING Stop: 08/22/18 22:24 Polyethylene Glycol (Miralax Powder Packet) 17 gm PO DAILY PRN PRN Reason: Constipation Stop: 08/24/18 20:55 Potassium Chloride (Klor-Con Pwd) 20 meq PO DAILY [facility] Stop: 08/23/18 08:59 Last Admin: 08/01/18 09:43 Dose: 20 meq Documented by: Prednisone (Prednisone) 5 mg PO DAILY [facility] Stop: 08/23/18 08:59 Last Admin: 08/01/18 09:43 Dose: 5 mg Documented by:
[2018-08-01] MEDS: DIGOXIN 0.125 MG TAB PO SCH (17:30)
[2018-08-01] MEDS: TRAVOPROST Z 0.004% OPH SOLN 2.5 ML BTL OPB SCH (20:33)
[2018-08-01 23:17] VITALS: TEMP 97.7
[2018-08-02] MEDS: LEVALBUTEROL HCL 1.25 MG/3 ML NEB INH SCH ×7 (00:29→15:52)
[2018-08-02] MEDS: LEVOTHYROXINE SODIUM 75 MCG TABLET PO SCH (05:33)
[2018-08-02] MEDS: ASPIRIN 81 MG ECTAB PO SCH (08:16)
[2018-08-02] MEDS: predniSONE 5 MG TAB PO SCH (08:16)
[2018-08-02] MEDS: POTASSIUM CHLORIDE PWD 20 MEQ PACK PO SCH (08:16)
[2018-08-02] MEDS: METOPROLOL TARTRATE 50 MG TAB PO SCH (08:16)
[2018-08-02] MEDS: FUROSEMIDE 80 MG TAB PO SCH (08:16)
[2018-08-02] MEDS: APIXABAN 2.5 MG TAB PO SCH (08:16)
[2018-08-02] MEDS: MULTIVITAMIN TAB PO SCH (08:16)
--- NOTE | 2018-08-02 11:46 | Discharge Summary ---
Date of Service August 02, 2018 Admission HPI Per Admitting Provider The patient is an 88-year-old female with a past medical history including severe COPD and left pleural effusion, who was sent to the emergency department by her home care nurse today with concerns regarding a possible pneumonia associated with a worsening hypoxia at home. She typically is on 4 L nasal cannula oxygen at baseline. She has had 3 recent falls over the past week, with the last one being yesterday, and denies any specific injury. The patient has been seen by Dr. Shoemaker in the outpatient office regarding the pleural effusion, and plans were to have a repeat chest x-ray to monitor the size of the effusion, as per the patient's notation, the 2 most recent x-rays did not show any significant worsening of the pleural effusion. She denies any associated chest pain. She reports that she also follows with Dr. Rucker from pulmonology, who has agreed to help her gradually taper off prednisone, at 1 mg/month rate, since she is concerned that the risks of prednisone use, in addition to causing her lower extremity edema, is affecting her skin as well. Admission Exam Per Admitting Provider The patient is awake, alert and oriented 3, hard of hearing, intermittently anxious, normocephalic and atraumatic, lying in bed and in no acute distress. HEENT--PERRL, EOMI, mucous membranes and oropharynx dry. Neck--supple. No JVD. No bruits. Thyroid normal, trachea midline, no adenopathy. Heart--normal S1 and S2. No murmurs, rubs or gallops. Lungs--decreased breath sounds throughout. Intermittent mild respiratory distress with accessory muscle use. Abdomen--normal bowel sounds and soft. Nontender. Nondistended, no hernias or masses, no organomegaly. Extremities--no cyanosis or clubbing. No edema. There are good distal pulses b/l. Dermatologic--ecchymoses throughout. Neurologic--cranial nerves II through XII grossly intact. Rheumatologic--normal range of motion. Psychiatric--intermittently anxious, hard of hearing Principal Diagnosis Acute Respiratory Failure with Hypoxia Discharge Exam General: Frail, agitated. HEENT: NC/AT, Nasal cannula in nares. Chest: Nontender to palpation. CV: RRR, Normal s1, s2. No murmurs appreciated Resp: Breath sounds clear bilaterally with scattered wheezes, decreased effort of breathing while sleeping. Abdomen: BS+. Soft, nontender, nondistended. No guarding. No organomegaly appreciated. Extremities: No edema. Discharge Data Allergies Allergy/AdvReac Type Severity Reaction Status Date / Time clonidine Allergy Mild SHORTNESS Verified 10/02/17 14:53 OF BREATH amlodipine Allergy Unknown rash,dizzy/balance Verified 07/23/18 19:40 off Iodinated Contrast- Oral and Allergy Unknown "IT JUST Verified 10/02/17 14:53 IV Dye AFFECTS ME AND I CAN'T EXPLAIN IT" latex Allergy Unknown RASH Verified 10/02/17 14:53 Penicillins Allergy Unknown UNKNOWN Verified 10/02/17 14:53 Sulfa (Sulfonamide Allergy Unknown "SWELLING Verified 10/02/17 14:53 Antibiotics) IN MOUTH AND DRIED OUT" atenolol Allergy Rash/dizzy Verified 07/23/18 19:40 clarithromycin Allergy Rash Verified 07/23/18 19:40 gatifloxacin Allergy rash/dizzy/ Verified 07/23/18 19:40 lightheaded losartan Allergy rash/dizzy Verified 07/23/18 19:40 Consultations 07/23/18 19:32 ED Decision to Admit Stat 07/23/18 22:25 Consult Cardiology Routine Consult Case Management - Discharge Planning Routine Consult Thoracic Surgery Routine 07/26/18 13:02 Consult Palliative Care Routine Hospital Course (1) Goals of care, counseling/discussion: 88yo with end stage lung disease admitted for possible CHF vs. COPD exacerbation. Acute Resp Failure with Hypoxia sec to Pleural effusion from CHF exacerbation/underlying COPD with exacerbation -kept on oxygen support. Acute on chronic diastolic CHF exacerbation in setting of Chronic Atrial fibrillation Diuresed well with one dose of 80mgs IV lasix. Continue the home dose of oral 80mgs daily and potassium chloride 20 mg once p.o. daily Cardiology consulted and recommended to continue current treatments. Mild troponin elevation upon admission. Trops elevated 0.047 -> 0.060 -> 0.063. Suspected from demand ischemia from hypoxia, values considered pleateau with no need for further trop. Atrial Fibrillation Continued apixaban 2.5 mg p.o. twice daily, aspirin 81 mg daily, digoxin 1.5 mcg p.o. every afternoon, metoprolol tartrate 50 mg p.o. every 12 hours Recurrent L pleural effusion Showed a possible transudate. Drained by thoracic surgery but reaccumulated. Not candidate for PleurX cath or surgery. Was treated with diruesis. COPD No IV steroids or extra dose prednisone in ED. Was on Xopenex 1.25mg QID scheduled and budesonide. Home dose of Prednisone 5mg PO was continued. Swallowing Dysfunction Swallow eval done. Recommended slippery diet. Concern of UTI Placed on ceftriaxone 1 g IV x 3 days. Urine culture grew more than 3 organisms. Recurrent Falls Multifactorial generalized deconditioning, CHF exacerbation, COPD exacerbation, hypoxia, failure to thrive are all on the differential. Her physical activity significantly limited by her oxygenation status. She desaturates with conversation so likely does with any exertion. PT and OT evals were ordered- PT/OT recs: 11/12 home care or detention facility placement. Pt refusing facility placement so home care was coordinated. Discharged with 24 hr home care. Hypomagnesemia -Pt declined Rx and lab draws. Before discharge, pt had been declining meds. Total Time Total Time Spent Total Time Spent (In Minutes): 60 Discharge Plan Discharge Items Patient Disposition: Hospice - Home Reason For Visit: ACUTE ON CHRONIC RESP FAILURE WITH HYPOXIA Discharge Diagnosis: Acute Respiratory Failure with Hypoxia Discharge Goals: Decrease discomfort and Increase independence Activity: Per 'Additional Instructions' section Non-emergency contact: Primary Care Provider Call non-emergency contact if: your symptoms worsen and you have a fever Follow-up/Referrals: Sheila Hurtado MD [Primary Care Provider] - Diet: Heart Healthy Addtl Provider Instructions: You were admitted due to acute respiratory failure secondary to your diagnosis of end stage lung disease. You were treated with one extra dose of lasix that helped get rid of the extra water present throughout your body. You also received a speech and swallow evaluation while hospitalized. You are being discharged with 24 hr home services. Please remember to take your medications as prescribed upon discharge. Please followup with your primary care provider in the next week. Please present to the nearest emergency room should the symptoms you came in with worsen or change. Hand written prescription of lorazepam 0.25mgs tid prn was given to the patient for anxiety control (15 tablets). Prescriptions: Continued multivitamin Tablet 1 tab PO DAILY RF: 0 prednisone 5 mg tablet 5 mg PO DAILY RF: 0 Travatan Z 0.004 % drops 1 drp OPB HS RF: 0 aspirin [Aspir-81] 81 mg Tablet,Delayed Release (Dr/Ec) 81 mg PO DAILY RF: 0 levothyroxine 75 mcg Tablet 75 mcg PO DAILY RF: 0 potassium chloride 20 mEq packet 20 meq PO DAILY RF: 0 furosemide [Lasix] 80 mg tablet 80 mg PO DAILY RF: 0 metoprolol tartrate [Lopressor] 50 mg tablet 50 mg PO Q12 RF: 0 digoxin [Digox] 125 mcg tablet 125 mcg PO QPM RF: 0 levalbuterol HCl [Xopenex] 1.25 mg/3 mL solution for nebulization 1 dose Inhalation TID PRN (Reason: Shortness Of Breath Or Wheezing) RF: 0 ipratropium bromide 0.03 % spray,non-aerosol 2 spray Intranasal TID PRN (Reason: Nasal Congestion) RF: 0 fluocinolone acetonide oil 0.01 % drops 1 dose OTB UD PRN (Reason: Unknown) RF: 0 Eliquis 2.5 mg tablet 2.5 mg PO BID RF: 0 Probiotic 3 billion cell Capsule PO DAILY RF: 0 Combivent Respimat 20-100 mcg/actuation mist 1 puff Inhalation TID RF: 0 Stand-Alone Forms: [facility] Discharge Orders: Discharge Order (Routine); Ordered 08/02/18 Ordered By: Shanda Love Admission Data Admit Date/Time: 07/23/18 21:23 Attending Provider: Cookie Bennett Admit Provider: James Coles Primary Care Provider: Sheila Hurtado Other Providers: Parker Marion ; Lee Shoemaker ; Morgan Carvalho ; Linda Ochoa Service: Telemetry Other Interventions: Discharge Summary Assessment (RN) Last Done: 08/02/18 15:56 DC Date/Time DO NOT enter until pt leaves facility: 08/02/18 16:31 Supervising Physician Co-Signing Physician Notes Resident Physician Supervision Note: I independently interviewed and examined the patient and verified the hernandez history and physical, reviewed labs and image studies, discussed the case with the resident Dr. Love and agree with the findings and care plan. Time spent in discharge 40 min
[2018-08-02 15:54] VITALS: O2SAT 95
[2018-08-02 16:00] VITALS: BP 169/75
[2018-08-02] MEDS: LORazepam 0.5 MG TAB SL PRN (16:10)
[2018-08-02] MEDS: DIGOXIN 0.125 MG TAB PO SCH (16:10)
[2018-08-02 16:31] VITALS: PULSE 96
== END 2018-08-02 16:31 | disposition hospice, home (50) | DRG 291 ==
LOC: ED 16:43 → 2W 21:23 → SUATTDRO 21:23 → 2W 22:03